=== PATIENT | female | born 1935 | race Caucasian/White ===

== ENCOUNTER 2016-09-20 11:23 | Emergency (ER) | payer OTHER ==
[~2016-09-20] VITALS: Ht 157.5 cm; Wt 88.0 kg
[~2016-09-20 11:23] MED LIST: AGG PO; ALEN70TA4 PO; CALC200T PO; CHOL2000 PO; DOCU-94 PO; ESCI10TA17 PO; INDSR/60 PO; INSDGIPEN SC; IPRASOL4 INH; ISOS120T5 PO; LSX80 PO; MCLIN; NF656 TOP; NVLGI/PEN SC; OXGN; OXYC1TAB3 PO; PANT40TA PO; POLY335019 PO; RANO1000 PO; SENN-65 PO; SIMV40TA2 PO; TOPI200T14 PO; VNTHFA/IN INH; VTMD PO
[2016-09-20 11:32] VITALS: TEMP 37; Ht 157.5 cm; Wt 88.0 kg
--- NOTE | 2016-09-20 11:41 | EMERGENCY ROOM VISIT NOTE ---
History Report prepared by Aar: Omid Mckeon Under the Supervision of: Dr. Chance Blake M.D. First contact with patient: 11:29 Chief Complaint: OTHER COMPLAINT Stated Complaint: NUMBNESS History of Present Illness The patient is a 81 year old female who presents to the Emergency Room with complaints of global numbness that began MOLDER FOAM RUBBER. The patient rates her current symptom severity a 10/10. The patient has been experiencing some diarrhea and itchiness for the past couple of days. However, the numbness was a new occurrence. She was given Benadryl which helped alleviate her itching mildly. She denies any other symptoms. She has no complaints at the moment. Source of History: patient Onset: MOLDER FOAM RUBBER Position: other (global) Symptom Intensity: 10/10 Quality: numbness Timing: constant Associated Symptoms: + diarrhea Note: The patient has some pruritus. She denies any other abnormal symptoms. Review of Systems See HPI for pertinent positives & negatives. A total of 10 systems reviewed and were otherwise negative. 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 (9) CEREBRAL THROMBOSIS W CEREBRAL INFARCTION (10) CEREBROVASC DISEASE NOS (11) Chest pain (12) CHRONIC KIDNEY DISEASE, STAGE V (13) Chronic pain (14) CVA (cerebral infarction) (15) CYSTIC KIDNEY DISEASE, UNSPECIFIED (16) Depression (17) Depression (18) Diabetes (19) Discharge planning issues (20) Elevated troponin (21) ESOPHAGEAL REFLUX (22) Fracture of thoracic spine (23) Heart disease (24) HTN (hypertension) (25) Hyperlipidemia (26) HYPERPARATHYROIDISM, UNSPECIFIED (27) Intentional self-harm (28) Leg weakness, bilateral (29) Leukocytosis (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 (31) Osteoarthritis (32) PANCREATIC DISEASE NEC (33) Past Psychotropic Medications (34) PERIPH VASCULAR DIS NOS (35) Precordial chest pain (36) R sided numbness (37) Rheumatoid arthritis (38) Right sided weakness (39) Suicide attempt by acetaminophen overdose (40) Thoracic spine fracture (41) TIA (transient ischemic attack) (42) UTI (urinary tract infection) (43) VASCULAR DEMENTIA, UNCOMPLICATED (44) VERTIGO (45) VITAMIN D DEFICIENCY NOS (46) Wrist fracture Surgical Problems: (1) Hx of coronary artery bypass surgery Family History Heart disease Myocardial infarction Social History Smoking Status: Former Smoker Alcohol Use: none Drug Use: none Marital Status: single Housing Status: lives alone Occupation Status: retired Current/Historical Medications Scheduled Alendronate Sodium (Fosamax), 70 MG PO WK Artificial Tear Solution (Artificial Tears), 1 DROPS OPB QID Calcitonin [place] (Calcitonin-[place]), 1 SPRAY NA DAILY Calcium Carbonate-Vitamin D (Oscal 500/200 D-3), 1 TAB PO AMPM Diphenhydramine Hcl (Benadryl Allergy), 50 MG PO QPM Dipyridamole/Aspirin (Aggrenox 25-200 mg), 1 TAB PO DAILY Docusate Sodium (Colace), 1 CAP PO BID Ergocalciferol (Vitamin D), 1 CAP PO WK Escitalopram (Lexapro), 10 MG PO DAILY Furosemide (Lasix), 60 MG PO BID Insulin Aspart (Novolog Flexpen), SC TIDM Insulin Glargine (Lantus Solostar), 45 UNIT SC PM Ipratropium-Albuterol (Duoneb), 1 TREATMENT INH QID Isosorbide Mononitrate Ext Rel (Imdur Ext Rel), 120 MG PO QAM Lidocaine (Lidoderm Patch 5%), 1 PATCH TOP QAM Nitroglycerin (Nitrostat), 0.4 MG UT PRN Nystatin (Topical) (Nystatin), 1 APPLN TOP BID Oseltamivir Phosphate (Tamiflu), 1 CAP PO Q2D Oxycodone/Acetaminophen 5MG/325MG (Percocet 5MG/325MG), 1 TABLET PO Q6H Pantoprazole (Protonix), 40 MG PO DAILY Polyethylene Glycol 3350 (Miralax), 17 GM PO DAILY Propranolol Hcl (Propranolol ER), 60 MG PO QAM Ranolazine (Ranexa), 1,000 MG PO Q12 Senna/Docusate Sod (Senokot S), 1 TAB PO DAILY Simvastatin (Zocor), 40 MG PO HS Topiramate (Topamax), 200 MG PO BID Scheduled PRN Albuterol Hfa (Ventolin Hfa), 1-2 PUFFS INH Q4 PRN for Shortness of Breath Allergies Coded Allergies: Iodinated Diagnostic Agents (Verified Allergy, Severe, ANAPHYLAXIS, ) [place] (Verified Allergy, Severe, RASH, HIVES, TROUBLE BREATHING, ) Promethazine (Verified Allergy, Severe, HIVES, TROUBLE BREATHING, 09/07/16 ) Bupropion (Verified Allergy, Intermediate, RASH, 09/07/16) Diazepam (Verified Allergy, Intermediate, Rash, 09/07/16) Reported by PT. Erythromycin (Verified Allergy, Intermediate, RASH, 09/07/16) Iodine (Verified Allergy, Intermediate, RASH, HIVES, 09/07/16) Penicillins (Unverified Allergy, Intermediate, RASH, 09/07/16) Phenytoin (Verified Allergy, Unknown, PT UNSURE, 09/07/16) Tamsulosin (Verified Adverse Reaction, Intermediate, DIZZINESS, 09/07/16) Physical Exam Vital Signs Date Time Temp Pulse Resp B/P Pulse Ox O2 Delivery O2 Flow Rate FiO2 09/20/16 14:58 104/89 09/20/16 14:32 72 18 104/53 92 Room Air 09/20/16 13:14 79 20 123/48 98 Room Air 09/20/16 11:47 74 20 134/53 97 Room Air 81 120/50 79 94/43 09/20/16 11:32 37.0 84 18 116/60 96 Room Air 09/20/16 11:30 37.0 84 18 116/60 96 Room Air Physical Exam CONSTITUTIONAL: No acute distress HEENT: No icterus, moist mucous membranes NECK: No meningismus, trachea is midline. CARDIOVASCULAR: Regular rate, normal perfusion RESPIRATORY: Unlabored breathing. Clear to auscultation. GASTROINTESTINAL: Non-tender GENITOURINARY: No flank tenderness MUSCULOSKELETAL: Full range of motion NEUROLOGIC: No acute gross focal deficits. Chronic right eye abnormalities without acute change per patient. Symmetrically weak. PSYCHIATRIC: Normal affect SKIN: Normal for ethnicity. Medical Decision & Procedures ER Provider Diagnostic Interpretation: Radiology results are stated below per my review and radiologist interpretation. CHEST ONE VIEW PORTABLE CLINICAL HISTORY: Weakness. COMPARISON STUDY: Chest radiograph September 08, 2016. FINDINGS: Lung volumes are normal. There is no evidence of pulmonary edema. Blunting of left costophrenic angle is unchanged. Mild cardiomegaly is similar to prior study. There is no evidence of pulmonary edema. There are few healed bilateral rib fractures. IMPRESSION: No acute cardiopulmonary findings. No change in appearance of the chest. Electronically signed by: Cuate Denise M.D. 09/20/2016 12:09 PM Dictated Date/Time: 09/20/2016 12:[address] OF THE HEAD WITHOUT CONTRAST CLINICAL HISTORY: Numbness. Weakness. Evaluate for stroke. COMPARISON STUDY: Head CT September 08, 2016. CT DOSE: 537.48 mGy.cm TECHNIQUE: Helical axial images of the head were obtained without IV contrast. Automated exposure control was utilized for the study. FINDINGS: No acute intracranial hemorrhage, midline shift or mass effect is present. Ventricular system is stable. The basilar cisterns are patent. There are no extra-axial collections. Harris-white differentiation is maintained. White matter hypodensity suggests small vessel disease. There are no findings to suggest acute dural sinus thrombosis or acute territorial infarct. This extensive intracranial vascular calcification. There is no calvarial fracture. Visualized portions of the sinuses and mastoid air cells are clear. IMPRESSION: No acute intracranial findings. Electronically signed by: Cuate Denise M.D. 09/20/2016 12:23 PM Dictated Date/Time: 09/20/2016 12:20 PM Laboratory Results Test 09/20/16 11:41 09/20/16 12:30 Bedside Hemoglobin 9.5 g/dl (12.0-16.0) Bedside Hematocrit 28 % (37-47) Bedside Sodium 139 mEq/L (135-144) Bedside Potassium 3.4 mEq/L (3.3-5.0) Bedside Chloride 97 mEq/L (101-112) Bedside Total CO2 25 mEq/l (24-31) Anion Gap 21.0 mmol/L (16-25) Bedside Blood Urea Nitrogen 24 mg/dl (7-18) Bedside Creatinine 1.8 mg/dl (0.6-1.3) Bedside Glucose (other) 110 mg/dl (70-99) Bedside Ionized Calcium ([place]) 1.22 mmol/l (1.12-1.32) Urine Color YELLOW Urine Appearance CLEAR (CLEAR) Urine pH 8.0 (4.5-7.5) Urine Specific [place] 1.000 (1.000-1.030) Urine Protein NEG (NEG) Urine Glucose (UA) NEG (NEG) Urine Ketones NEG (NEG) Urine Occult Blood NEG (NEG) Urine Nitrite NEG (NEG) Urine Bilirubin NEG (NEG) Urine Urobilinogen NEG (NEG) Urine Leukocyte Esterase NEG (NEG) Labs reviewed by ED physician. Medications Administered Medications (Trade) Dose Ordered Sig/Phil Route Start Time Stop Time Status Last Admin Dose Admin Oxycodone/ Acetaminophen (Percocet 5-325MG Tab) 1 tab NOW STAT PO 09/20/16 13:53 09/20/16 13:55 DC 09/20/16 14:01 1 TAB ED Course 1129: Past medical records reviewed. The patient was evaluated in room C3. A complete history and physical examination was performed. 1353: Oxycodone/Acetaminophen 1 tab PO 1430: Upon reexamination the patient is resting. I discussed results and treatment plan with the patient. She verbalizes agreement and understanding. The patient is ready for discharge. Medical Decision Differential diagnoses include but are not limited to; chronic diseases, debilitation, stroke, allergic reaction, and UTI. 81-year-old in generally poor health was transferred from [facility] (treated for back pain) for evaluation of diffuse bodily pruritus as well as numbness. I received the medic call on this patient which was consistent with patient's report to me of generalized concerns without focality either of the pruritus or of the numbness. Patient is noted to have atypical cranial nerve deficits but which appear to be consistent with baseline and she is symmetrically weak without focal gross deficits identified. Labs did not reveal acute abnormalities and imaging was negative. Patient received Benadryl in route to the emergency room and her pruritus resolved while she was here. She continued to complain of mild diffuse numbness of her entire body but this also appears to be consistent with frequent episodes which she has at times. She did request something for her back pain and was provided Percocet consistent with her medications at [facility]. She appeared in no distress at the time of discharge. Impression Primary Impression: Weakness Scribe Attestation The scribe's documentation has been prepared under my direction and personally reviewed by me in its entirety. I confirm that the note above accurately reflects all work, treatment, procedures, and medical decision making performed by me. Departure Information Dispostion Home / Self-Care Referrals Mckinley Contreras M.D. (PCP) Forms HOME CARE DOCUMENTATION FORM, IMPORTANT VISIT INFORMATION, WORK / SCHOOL INSTRUCTIONS Patient Instructions A Signature Page, My [facility]
[2016-09-20 11:52] LABS: ISTAT CREATININE 1.8 mg/dl (0.6-1.3); ISTAT HEMOGLOBIN 9.5 g/dl (12.0-16.0); ISTAT IONIZED CALCIUM 1.22 mmol/l (1.12-1.32)
[2016-09-20] MEDS ORDERED: OSEL30CA PO (12:09)
[2016-09-20] MEDS ORDERED: RANO500T PO (12:09)
[2016-09-20] MEDS ORDERED: DIPH25CA65 PO (12:09)
[2016-09-20] MEDS ORDERED: ARTISOL12 OPB (12:09)
[2016-09-20] MEDS ORDERED: FURO-85 PO (12:09)
[2016-09-20] MEDS ORDERED: NTRGSL/4 UT (12:09)
[2016-09-20] MEDS ORDERED: NYST80OI TOP (12:09)
[2016-09-20] MEDS ORDERED: ISOS60TA25 PO (12:09)
[2016-09-20] MEDS ORDERED: OXYC-57 PO (12:09)
--- NOTE | 2016-09-20 12:11 | DIAGNOSTIC IMAGING REPORT ---
CHEST ONE VIEW PORTABLE CLINICAL HISTORY: Weakness. COMPARISON STUDY: Chest radiograph September 08, 2016. FINDINGS: Lung volumes are normal. There is no evidence of pulmonary edema. Blunting of left costophrenic angle is unchanged. Mild cardiomegaly is similar to prior study. There is no evidence of pulmonary edema. There are few healed bilateral rib fractures. IMPRESSION: No acute cardiopulmonary findings. No change in appearance of the chest. Electronically signed by: Cuate Denise M.D. 09/20/2016 12:09 PM Dictated Date/Time: 09/20/2016 12:06 PM
--- NOTE | 2016-09-20 12:25 | DIAGNOSTIC IMAGING REPORT ---
CT OF THE HEAD WITHOUT CONTRAST CLINICAL HISTORY: Numbness. Weakness. Evaluate for stroke. COMPARISON STUDY: Head CT September 08, 2016. CT DOSE: 537.48 mGy.cm TECHNIQUE: Helical axial images of the head were obtained without IV contrast. Automated exposure control was utilized for the study. FINDINGS: No acute intracranial hemorrhage, midline shift or mass effect is present. Ventricular system is stable. The basilar cisterns are patent. There are no extra-axial collections. Harris-white differentiation is maintained. White matter hypodensity suggests small vessel disease. There are no findings to suggest acute dural sinus thrombosis or acute territorial infarct. This extensive intracranial vascular calcification. There is no calvarial fracture. Visualized portions of the sinuses and mastoid air cells are clear. IMPRESSION: No acute intracranial findings. Electronically signed by: Cuate Denise M.D. 09/20/2016 12:23 PM Dictated Date/Time: 09/20/2016 12:20 PM
[2016-09-20 12:55] LABS: URINE APPEARANCE CLEAR (CLEAR); URINE BILIRUBIN NEG (NEG); URINE COLOR YELLOW; URINE NITRITE NEG (NEG); UROBILINOGEN NEG (NEG); ZZUR CULT IF INDIC CLEAN CATCH NO
[2016-09-20 13:01] LABS: MANUAL MICROSCOPIC REQUIRED? NO; REVIEW REQ? NO
[2016-09-20] MEDS ORDERED: OXYCODONE/ACETAMINOPHEN 5-325 TAB PO STA (13:53)
[2016-09-20 14:32] VITALS: PULSE 72; O2SAT 92
[2016-09-20 14:58] VITALS: BP 104/89
[2016-12-10] MEDS ORDERED: ULT50X PO (11:01)
[2016-12-10] MEDS ORDERED: cipro (11:01)
[2016-12-10] MEDS ORDERED: VTMD1000 PO (11:01)
[2016-12-10] MEDS ORDERED: CIPR1TAB11 PO (11:01)
[2016-12-10] MEDS ORDERED: INSDGIPEN SC (11:01)
[2016-12-30] MEDS ORDERED: REPA2TAB13 PO (22:28)
[2017-04-07] MEDS ORDERED: OXYC-57 PO (15:43)
[2017-04-07] MEDS ORDERED: MCRK20 PO (15:43)
[2017-04-07] MEDS ORDERED: NF656 PO (15:43)
[2017-04-19] MEDS ORDERED: DFL100 PO (15:04)
[2017-04-19] MEDS ORDERED: KFL500 PO (15:04)
[2017-04-19] MEDS ORDERED: ASPEC81 PO (15:04)
== END 2016-09-20 15:02 | disposition home or self-care (01) ==
LOC: EDBD 11:23 → C.EDC 11:26
DX: R53.1 Weakness (principal); J45.909 Unspecified asthma, uncomplicated; I48.91 Unspecified atrial fibrillation; E11.22 Type 2 diabetes mellitus with diabetic chronic kidney disease; I12.0 Hypertensive chronic kidney disease with stage 5 chronic kidney disease or end stage renal disease; N18.5 Chronic kidney disease, stage 5; E55.9 Vitamin D deficiency, unspecified; E78.5 Hyperlipidemia, unspecified; I73.9 Peripheral vascular disease, unspecified; F01.50 Vascular dementia, unspecified severity, without behavioral disturbance, psychotic disturbance, mood disturbance, and anxiety; M19.90 Unspecified osteoarthritis, unspecified site; K21.9 Gastro-esophageal reflux disease without esophagitis; F32.9 Major depressive disorder, single episode, unspecified; Z86.73 Personal history of transient ischemic attack (TIA), and cerebral infarction without residual deficits; Z87.891 Personal history of nicotine dependence; Z82.49 Family history of ischemic heart disease and other diseases of the circulatory system; Z79.02 Long term (current) use of antithrombotics/antiplatelets; Z79.82 Long term (current) use of aspirin; Z79.899 Other long term (current) drug therapy

== ENCOUNTER → 2016-11-17 | Outpatient (CLI) | payer OTHER ==
[~2016-11-17] MED LIST changes: +ACET-1256 PO; +ACET-1311 PO; +ARIP2TAB3 PO; +ARTISOL12 OPB; +ASPEC81 PO; +BISA10SU7 PR; +CHOL1000 PO; -CHOL2000 PO; +CIPR1TAB11 PO; +CITA20TA4 PO; +CLB/200 PO; +CLOP1TAB15 PO; +DFL100 PO; +DILT40TA2 PO; +DIPH25CA65 PO; +ESCI1TAB10 PO; +FRRS300 PO; +FURO-85 PO; +FURO80TA63 PO; +GLYCDRO6 OPB; +HYDR25TA5 PO; +ISOS-11 PO; +ISOS60TA25 PO; +KFL500 PO; +LDDP5 TD; -LSX80 PO; +MCRK20 PO; +MECL1TAB42 PO; +METO2.5T PO; +MOML PO; +MRP15 PO; +MYL80 PO; +NCY50 PO; +NCYSR50 PO; +NF656 PO; +NMN10 PO; +NORT25CA PO; +NTRGSL/4 UT; +NYST80OI TOP; +OSEL30CA PO; -OXGN; +OXYC-57 PO; -OXYC1TAB3 PO; +POTA20TA13 PO; +POTA20TA16 PO; +PRD10 PO; +PRED-301 PO; +PRED10TA PO; +PRLSR20 PO; +RANO500T PO; +REPA2TAB13 PO; +RXNS20 PO; +SENN-61 PO; +SENN1TAB65 PO; +SODIENE PR; +TAPE1TAB9 PO; +TRAM-10 PO; +ULT50X PO; +VITA1TAB12; +VTMD1000 PO; +ZFRI4 IV; +cipro; +lidocaine patch TD
[2016-11-17 10:52] LABS: BASO % 0.3 %; BASO ABS # 0.03 K/uL (0-0.2); COMPLETE YES; EOS % 3.8 %; HEMATOCRIT 34.4 % (37-47); IG% 0.4 %; LYMPH % 28.8 %; LYMPH ABS # 2.91 K/uL (1.2-3.4); MEAN CELL VOLUME 83.7 fL (80-100); MEAN CORPUSCULAR HGB CONC 31.1 g/dl (32-36); MEAN PLATELET VOLUME 9.1 fL (7.4-10.4); MONO % 9.9 %; NEUT % 56.8 %; PLATELET COUNT 365 K/uL (130-400); RED BLOOD COUNT 4.11 M/uL (4.2-5.4); WHITE BLOOD COUNT 10.09 K/uL (4.8-10.8)
[2016-11-17 11:09] LABS: ALT/SGPT 16 U/L (12-78); AST/SGOT 8 U/L (15-37); BLOOD UREA NITROGEN 30 mg/dl (7-18); BUN/CREATININE RATIO 15.5 (10-20); CALCIUM 9.4 mg/dl (8.5-10.1); CARBON DIOXIDE 28 mmol/L (21-32); CHLORIDE 101 mmol/L (98-107); GLUCOSE 95 mg/dl (70-99); POTASSIUM 3.4 mmol/L (3.5-5.1); SODIUM 140 mmol/L (136-145)
[2016-11-17 11:10] LABS: ALB/GLOB RATIO 0.8 (0.9-2); ALKALINE PHOSPHATASE 64 U/L (45-117)
== END | disposition home or self-care (01) ==
LOC: C.LAB1850 08:54
PROVIDERS: ATTEND Internal Medicine
DX: N18.3 Chronic kidney disease, stage 3 (moderate) (principal); D64.9 Anemia, unspecified

== ENCOUNTER 2016-12-08 18:24 | Inpatient (IN) | payer OTHER ==
[~2016-12-08] VITALS: Ht 157.5 cm; Wt 86.4 kg
[~2016-12-08 18:24] MED LIST changes: -ACET-1256 PO; -ACET-1311 PO; -ARIP2TAB3 PO; -ASPEC81 PO; -BISA10SU7 PR; -CHOL1000 PO; -CIPR1TAB11 PO; -CITA20TA4 PO; -CLB/200 PO; -CLOP1TAB15 PO; -DFL100 PO; -DILT40TA2 PO; -ESCI1TAB10 PO; -FRRS300 PO; -FURO80TA63 PO; -GLYCDRO6 OPB; -HYDR25TA5 PO; +HYDROCODONE/ACETAMOPHEN 5/325MG TAB PO PRN; -ISOS-11 PO; -ISOS120T5 PO; -KFL500 PO; -LDDP5 TD; -MCRK20 PO; -MECL1TAB42 PO; -METO2.5T PO; -MOML PO; -MRP15 PO; -MYL80 PO; +MoRPHine SULFATE 4 MG/ML 1 ML CARP\\VIAL IV PRN; -NCY50 PO; -NCYSR50 PO; -NF656 PO; -NMN10 PO; -NORT25CA PO; -POTA20TA13 PO; -POTA20TA16 PO; -PRD10 PO; -PRED-301 PO; -PRED10TA PO; -PRLSR20 PO; -RANO1000 PO; -REPA2TAB13 PO; -RXNS20 PO; -SENN-61 PO; -SENN1TAB65 PO; -SODIENE PR; -TAPE1TAB9 PO; -TRAM-10 PO; +TRAMADOL HCL 50 MG TAB PO PRN; -ULT50X PO; -VITA1TAB12; -VTMD1000 PO; -ZFRI4 IV; -cipro; -lidocaine patch TD
[2016-12-08] MEDS ORDERED: ONDANSETRON INJ 2 MG/ML 2 ML VIAL IV STA (18:27)
--- NOTE | 2016-12-08 18:52 | EMERGENCY ROOM VISIT NOTE ---
History Report prepared by Ara: Peter Santiago Under the Supervision of: Dr. Vu Marinelli D.O. First contact with patient: 18:25 Chief Complaint: FALL Stated Complaint: FALL, BACK PAIN History of Present Illness The patient is a 81 year old female who presents to the Emergency Room via EMS with complaints of severe upper back pain secondary to fall occurring today. She lost her balance while walking, and fell backwards on her back. She denies loss of consciousness or hitting her head. She describes the pain to be located near her lower neck and upper back. She received Fentanyl in route to the Emergency Room with some relief. She has a history of vertigo. The patient denies any chest pain, arm pain, hip pain, or any other complaints. She is on Coumadin. Source of History: patient, EMS Onset: today Position: back (upper) Symptom Intensity: severe Modifying Factors (Relieving): other (Fentanyl with some relief) Associated Symptoms: No LOC, No chest pain Review of Systems See HPI for pertinent positives & negatives. A total of 10 systems reviewed and were otherwise negative. 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 (9) CEREBRAL THROMBOSIS W CEREBRAL INFARCTION (10) CEREBROVASC DISEASE NOS (11) Chest pain (12) CHRONIC KIDNEY DISEASE, STAGE V (13) Chronic pain (14) CVA (cerebral infarction) (15) CYSTIC KIDNEY DISEASE, UNSPECIFIED (16) Depression (17) Depression (18) Diabetes (19) Discharge planning issues (20) Elevated troponin (21) ESOPHAGEAL REFLUX (22) Fracture of thoracic spine (23) Heart disease (24) HTN (hypertension) (25) Hyperlipidemia (26) HYPERPARATHYROIDISM, UNSPECIFIED (27) Intentional self-harm (28) Leg weakness, bilateral (29) Leukocytosis (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 (31) Osteoarthritis (32) PANCREATIC DISEASE NEC (33) Past Psychotropic Medications (34) PERIPH VASCULAR DIS NOS (35) Precordial chest pain (36) R sided numbness (37) Rheumatoid arthritis (38) Right sided weakness (39) Suicide attempt by acetaminophen overdose (40) Thoracic spine fracture (41) TIA (transient ischemic attack) (42) UTI (urinary tract infection) (43) VASCULAR DEMENTIA, UNCOMPLICATED (44) VERTIGO (45) VITAMIN D DEFICIENCY NOS (46) Wrist fracture Surgical Problems: (1) Hx of coronary artery bypass surgery Family History Heart disease Myocardial infarction Social History Smoking Status: Never Smoker Alcohol Use: none Drug Use: none Marital Status: single Housing Status: lives alone Occupation Status: retired Current/Historical Medications Scheduled Alendronate Sodium (Fosamax), 70 MG PO WK Aripiprazole (Abilify), 2 MG PO QAM Calcium Carbonate-Vitamin D (Oscal 500/200 D-3), 1 TAB PO AMPM Celecoxib (CeleBREX), 200 MG PO DAILY Citalopram Hydrobromide (Citalopram Hydrobromide), 20 MG PO DAILY Clopidogrel (Plavix), 75 MG PO DAILY Diltiazem Hcl (Cardizem), 30 MG PO TID Docusate Sodium (Colace), 1 CAP PO BID Escitalopram (Lexapro), 10 MG PO DAILY Hydrochlorothiazide (Hydrochlorothiazide), 12.5 MG PO DAILY Insulin Aspart (Novolog Flexpen), SC TIDM Insulin Glargine (Lantus Solostar), 45 UNIT SC PM Isosorbide Mononitrate Ext Rel (Imdur Ext Rel), 120 MG PO QAM Memantine (Namenda), 10 MG PO BID Nitroglycerin (Nitrostat), 0.4 MG UT PRN Omeprazole (Prilosec), 20 MG PO DAILY Pantoprazole (Protonix), 40 MG PO QPM Polyethylene Glycol 3350 (Miralax), 17 GM PO DAILY Potassium Ext Rel (Klor-Con), 20 MEQ PO BID Prednisone (Prednisone), 5 MG PO DAILY Propranolol Hcl (Propranolol ER), 60 MG PO QAM Ranolazine (Ranexa), 1,000 MG PO Q12 Senna (Senokot), 1 TAB PO DAILY Simvastatin (Zocor), 40 MG PO HS Topiramate (Topamax), 200 MG PO BID Scheduled PRN Acetaminophen (Tylenol), 1,000 MG PO Q4 PRN for Pain Albuterol Hfa (Ventolin Hfa), 1-2 PUFFS INH Q4 PRN for Shortness of Breath Calcitonin Reno (Calcitonin-Reno), 1 SPRAY NA DAILY PRN for PRN Diphenhydramine Hcl (Benadryl Allergy), 50 MG PO QPM PRN for Sleep Miscellaneous Medications Vitamin E (Vitamin E), Unknown Dose Allergies Coded Allergies: Iodinated Diagnostic Agents (Verified Allergy, Severe, ANAPHYLAXIS, ) Ceex Haci (Verified Allergy, Severe, RASH, HIVES, TROUBLE BREATHING, 12/08/16 ) Promethazine (Verified Allergy, Severe, HIVES, TROUBLE BREATHING, 12/08/16) Bupropion (Verified Allergy, Intermediate, RASH, 12/08/16) Diazepam (Verified Allergy, Intermediate, Rash, 12/08/16) Reported by PT. Erythromycin (Verified Allergy, Intermediate, RASH, 12/08/16) Iodine (Verified Allergy, Intermediate, RASH, HIVES, 12/08/16) Penicillins (Unverified Allergy, Intermediate, RASH, 12/08/16) Phenytoin (Verified Allergy, Unknown, PT UNSURE, 12/08/16) Tamsulosin (Verified Adverse Reaction, Intermediate, DIZZINESS, 12/08/16) Physical Exam Vital Signs Date Time Temp Pulse Resp B/P Pulse Ox O2 Delivery O2 Flow Rate FiO2 12/08/16 21:41 93 20 123/70 98 Room Air 12/08/16 20:46 93 12/08/16 20:00 93 20 131/60 99 Room Air 12/08/16 18:25 36.8 87 18 111/59 96 Room Air Physical Exam GENERAL: Patient is awake, alert, and very uncomfortable appearing. Immobilized with cervical collar. EYES: The conjunctivae are clear. Blind in right eye. Left eye has a mid-sized pupil which is reactive to light. EARS, NOSE, MOUTH AND THROAT: The nose is without any evidence of any deformity. Mucous membranes are moist tongue is midline NECK: The neck is nontender and supple. Cervical collar was applied prior to arrival. RESPIRATORY: Normal respiratory effort is noted there is no evidence of wheezing rhonchi or rales CARDIOVASCULAR: Regular rate and rhythm. Systolic murmur appreciated. GASTROINTESTINAL: The abdomen is soft. Bowel sounds are present in all quadrants. Abdomen is nontender BACK: Diffuse thoracic and lumbar spine tenderness to palpation. MUSCULOSKELETAL/EXTREMITIES: There is no evidence of gross deformity full range of motion is noted in the hips and shoulders SKIN: There is no obvious evidence of any rash. There are no petechiae, pallor or cyanosis noted. Pedal edema bilaterally. NEUROLOGIC: Patient is awake alert and oriented x3 strength is symmetric Medical Decision & Procedures ER Provider Diagnostic Interpretation: X-ray results as stated below per interpretation by me and the radiologist. CHEST ONE VIEW PORTABLE CLINICAL HISTORY: fall trauma. Pain. COMPARISON STUDY: 09/20/2016 FINDINGS: The bones soft tissues and hemidiaphragms are normal. The cardiomediastinal silhouette is normal. The lungs are clear. The pulmonary vasculature is normal. IMPRESSION: Negative chest. Electronically signed by: Ashwin Handy M.D. 12/08/2016 9:14 PM Dictated Date/Time: 12/08/2016 9:[address] results as stated below per my review and radiologist interpretation. CERVICAL SPINE CT CT DOSE: HISTORY: Trauma fall TECHNIQUE: Multiaxial CT images of the cervical spine were performed and reformatted in the sagittal and coronal plane without the use of contrast. COMPARISON: 09/08/2016 FINDINGS: No change in the prior exam. Old compression deformity C7 unchanged. No acute or interval compression deformity. Moderate degenerative disc change. Moderate degenerative changes C1-C2 complex. IMPRESSION: Considerable degenerative change. Old compression deformity C7 unchanged. No new or interval process. Electronically signed by: Ashwin Handy M.D. 12/08/2016 7:44 PM Dictated Date/Time: 12/08/2016 7:[address]AST CT DOSE: HISTORY: Trauma fall TECHNIQUE: Multiaxial CT images of the head were performed without the use of intravenous contrast. Comparison: 09/20/2016 Findings: The paranasal sinuses and mastoid air cells are clear. The calvarium and skull base are intact. The ventricles and sulci are within normal limits. There is no mass, hematoma, midline shift, or acute infarct. Impression: No acute intracranial abnormality. Electronically signed by: Ashwin Handy M.D. 12/08/2016 7:41 PM Dictated Date/Time: 12/08/2016 7:[address] DOSE: 3560.79 mGy.cm HISTORY: Trauma. Pain. fall TECHNIQUE: Multiaxial CT images of the lumbar spine were performed and reformatted in the sagittal and coronal plane without the use of contrast. COMPARISON: 01/23/2016 FINDINGS: T12 compression fractures slightly progressive compared to the prior study. Interval development of a mild compression deformity of L1. No significant compromise of the spinal canal. Has minimal loss of vertebral body height of approximately 25-30%. Pre-existing slight concave deformity inferior endplate of L2 and L3. Grade 1 anterolisthesis of L4 and L5 unchanged in the prior study. IMPRESSION: 1. Slight progression of pre-existing compression deformities of T12 with subtle progressive compression deformities of L1. 2. No significant compromise of the spinal canal. 3. Unchanging grade 1 anterolisthesis of L4 and L5. 4. Generalized degenerative change and osteopenia unaltered from the prior study. Electronically signed by: Ashwin Handy M.D. 12/08/2016 7:54 PM Dictated Date/Time: 12/08/2016 7:[address] DOSE: HISTORY: Trauma. Pain. fall TECHNIQUE: Multiaxial CT images of the thoracic spine were performed and reformatted in the sagittal and coronal plane without the use of contrast. COMPARISON: 09/08/2016 FINDINGS: Considerable degenerative change throughout the entire thoracic region. Multiple mild to moderate compression deformities of bulk of which appear to be old. There is perhaps a subtle increase in compression deformity of T12 T6 and T9. Apparent acute cortical fracture left transverse process T8. No significant compromise of the thoracic spinal canal. IMPRESSION: 1. Multiple compression deformities combined with degenerative change of the bulk of which appears to be unchanged and/or chronic. 2. Subtle increase in compression of T6, T9, and T12. 3. No compromise of the thoracic spinal canal. 4. Nondisplaced cortical fracture left transverse process T8 Electronically signed by: Ashwin Handy M.D. 12/08/2016 7:50 PM Dictated Date/Time: 12/08/2016 7:44 PM Laboratory Results Test 12/08/16 19:55 Prothrombin Time 11.8 SECONDS (9.0-12.0) Prothromb Time International Ratio 1.1 (0.9-1.1) Activated Partial Thromboplast Time 23.3 SECONDS (21.0-31.0) Partial Thromboplastin Ratio 0.9 Total Bilirubin 0.3 mg/dl (0.2-1) Direct Bilirubin < 0.1 mg/dl (0-0.2) Aspartate Amino Transf (AST/SGOT) 12 U/L (15-37) Alanine Aminotransferase (ALT/SGPT) 13 U/L (12-78) Alkaline Phosphatase 59 U/L (45-117) Total Creatine Kinase 63 U/L (26-192) Creatine Kinase MB < 0.5 ng/ml (0.5-3.6) Creatine Kinase MB Ratio (0-3.0) Troponin I < 0.015 ng/ml (0-0.045) Total Protein 7.4 gm/dl (6.4-8.2) Albumin 3.3 gm/dl (3.4-5.0) Lipase 100 U/L (73-393) Laboratory results per my review. Medications Administered Medications (Trade) Dose Ordered Sig/Phil Route Start Time Stop Time Status Last Admin Dose Admin Fentanyl Citrate (Fentanyl Inj) 50 mcg Q20M PRN IV 12/08/16 18:30 12/09/16 01:04 DC 12/08/16 22:34 50 MCG Ondansetron HCl (Zofran Inj) 4 mg NOW STAT IV 12/08/16 18:27 12/08/16 18:30 DC 12/08/16 19:03 4 MG Morphine Sulfate (MoRPHine SULFATE INJ) 2 mg Q2H PRN IV 12/08/16 03:30 12/22/16 03:29 12/09/16 01:05 2 MG Tramadol HCl (Ultram Tab) 50 mg Q4H PRN PO 12/08/16 03:30 01/07/17 03:29 12/09/16 10:40 50 MG Tramadol HCl (Ultram Tab) 100 mg Q4H PRN PO 12/08/16 03:30 01/07/17 03:29 12/09/16 03:28 100 MG ECG Indication: back/shoulder pain Rate (beats per minute): 84 Rhythm: normal sinus Findings: no ectopy, other (No acute ST segment abnormality) Comparison ECG Date: September 07, 2016 Change: no significant change ED Course 1825: The patient was evaluated in room C02B. A complete history and physical examination were performed. 1826: Zofran Inj 4 mg IV 1829: Fentanyl Inj 50 mcg IV 2151: Upon reevaluation, the patient is resting comfortably. I discussed results and treatment plan with her. She verbalizes agreement and understanding. I spoke with Dr. Lainez of the [facility] Hospitalist Service. The patient will be evaluated for further management and care. Medical Decision Prior records/ancillary studies reviewed. Triage Nursing notes reviewed. The patient's history was concerning for traumatic injury Differential diagnosis: Etiologies such as fracture, dislocation, intra-abdominal, pneumothorax, intrathoracic , intracranial, neurologic, as well as other traumatic pathologies were entertained. The patient is an 81-year-old female who presented to the emergency department for an evaluation after a fall. The patient has a history of vertigo. She fell backwards striking her back. She suffered multiple new compression fractures in her thoracic and lumbar spine. She also had previous compression fractures in those areas as well. She also has a transverse process fracture. She was treated with pain medication by the prehospital personnel after they called me for medical command. She was also given IV pain medication in the emergency department. She was comfortable when she was lying still but as soon she try to move she had very severe pain. I discussed the patient's laboratory and radiographic studies with her and her daughter. We attempted to have the patient placed at [facility] utilizing the emergency department casework specialist. We were unable to succeed with this placement so I discussed his case with the on-call [facility] hospitalist group. They have agreed to evaluate the patient in the emergency department for further management and disposition. Consults Time Called: 2135 Consulting Physician: Dr. Lainez of the [facility] Hospitalist Service Returned Call: [phone] Lainez of the [facility] Hospitalist Service. Impression Primary Impression: Fall Additional Impressions: Multiple fractures of thoracic spine Lumbar compression fracture Fracture of thoracic transverse process Intractable back pain Scribe Attestation The scribe's documentation has been prepared under my direction and personally reviewed by me in its entirety. I confirm that the note above accurately reflects all work, treatment, procedures, and medical decision making performed by me. Departure Information Dispostion Being Evaluated By Hospitalist Referrals Mckinley Contreras M.D. (PCP) Patient Instructions My [facility] Problem Qualifiers Primary Impression: Fall Encounter type: initial encounter Qualified Codes: W19.XXXA - Unspecified fall, initial encounter Additional Impressions: Multiple fractures of thoracic spine Encounter type: initial encounter Fracture type: closed Qualified Codes: S22.009A - Unspecified fracture of unspecified thoracic vertebra, initial encounter for closed fracture Lumbar compression fracture Encounter type: initial encounter Fracture type: closed Qualified Codes: S32.000A - Wedge compression fracture of unspecified lumbar vertebra, initial encounter for closed fracture Fracture of thoracic transverse process Encounter type: initial encounter Fracture type: closed Qualified Codes: S22.009A - Unspecified fracture of unspecified thoracic vertebra, initial encounter for closed fracture
[2016-12-08] MEDS: FENTANYL CITRATE INJ 50 MCG/1 ML 2 ML VIAL IV PRN ×2 (19:03→22:34)
--- NOTE | 2016-12-08 19:43 | DIAGNOSTIC IMAGING REPORT ---
HEAD CT NONCONTRAST CT DOSE: HISTORY: Trauma fall TECHNIQUE: Multiaxial CT images of the head were performed without the use of intravenous contrast. Comparison: 09/20/2016 Findings: The paranasal sinuses and mastoid air cells are clear. The calvarium and skull base are intact. The ventricles and sulci are within normal limits. There is no mass, hematoma, midline shift, or acute infarct. Impression: No acute intracranial abnormality. Electronically signed by: Ashwin Handy M.D. 12/08/2016 7:41 PM Dictated Date/Time: 12/08/2016 7:40 PM
--- NOTE | 2016-12-08 19:45 | DIAGNOSTIC IMAGING REPORT ---
CERVICAL SPINE CT CT DOSE: HISTORY: Trauma fall TECHNIQUE: Multiaxial CT images of the cervical spine were performed and reformatted in the sagittal and coronal plane without the use of contrast. COMPARISON: 09/08/2016 FINDINGS: No change in the prior exam. Old compression deformity C7 unchanged. No acute or interval compression deformity. Moderate degenerative disc change. Moderate degenerative changes C1-C2 complex. IMPRESSION: Considerable degenerative change. Old compression deformity C7 unchanged. No new or interval process. Electronically signed by: Ashwin Handy M.D. 12/08/2016 7:44 PM Dictated Date/Time: 12/08/2016 7:42 PM
--- NOTE | 2016-12-08 19:51 | DIAGNOSTIC IMAGING REPORT ---
THORACIC SPINE CT CT DOSE: HISTORY: Trauma. Pain. fall TECHNIQUE: Multiaxial CT images of the thoracic spine were performed and reformatted in the sagittal and coronal plane without the use of contrast. COMPARISON: 09/08/2016 FINDINGS: Considerable degenerative change throughout the entire thoracic region. Multiple mild to moderate compression deformities of bulk of which appear to be old. There is perhaps a subtle increase in compression deformity of T12 T6 and T9. Apparent acute cortical fracture left transverse process T8. No significant compromise of the thoracic spinal canal. IMPRESSION: 1. Multiple compression deformities combined with degenerative change of the bulk of which appears to be unchanged and/or chronic. 2. Subtle increase in compression of T6, T9, and T12. 3. No compromise of the thoracic spinal canal. 4. Nondisplaced cortical fracture left transverse process T8 Electronically signed by: Ashwin Handy M.D. 12/08/2016 7:50 PM Dictated Date/Time: 12/08/2016 7:44 PM
--- NOTE | 2016-12-08 19:55 | DIAGNOSTIC IMAGING REPORT ---
LUMBAR SPINE CT CT DOSE: 3560.79 mGy.cm HISTORY: Trauma. Pain. fall TECHNIQUE: Multiaxial CT images of the lumbar spine were performed and reformatted in the sagittal and coronal plane without the use of contrast. COMPARISON: 01/23/2016 FINDINGS: T12 compression fractures slightly progressive compared to the prior study. Interval development of a mild compression deformity of L1. No significant compromise of the spinal canal. Has minimal loss of vertebral body height of approximately 25-30%. Pre-existing slight concave deformity inferior endplate of L2 and L3. Grade 1 anterolisthesis of L4 and L5 unchanged in the prior study. IMPRESSION: 1. Slight progression of pre-existing compression deformities of T12 with subtle progressive compression deformities of L1. 2. No significant compromise of the spinal canal. 3. Unchanging grade 1 anterolisthesis of L4 and L5. 4. Generalized degenerative change and osteopenia unaltered from the prior study. Electronically signed by: Ashwin Handy M.D. 12/08/2016 7:54 PM Dictated Date/Time: 12/08/2016 7:50 PM
[2016-12-08 20:12] LABS: BASO % 0.2 %; BASO ABS # 0.02 K/uL (0-0.2); COMPLETE YES; IG% 0.3 %; LYMPH % 27.4 %; LYMPH ABS # 2.56 K/uL (1.2-3.4); MEAN CORPUSCULAR HEMOGLOBIN 26.1 pg (25-34); MEAN CORPUSCULAR HGB CONC 32.2 g/dl (32-36); MEAN PLATELET VOLUME 8.7 fL (7.4-10.4); MONO % 10.3 %; NEUT % 59.8 %; PLATELET COUNT 331 K/uL (130-400); RED BLOOD COUNT 3.95 M/uL (4.2-5.4); WHITE BLOOD COUNT 9.36 K/uL (4.8-10.8)
[2016-12-08 20:31] LABS: INR 1.1 (0.9-1.1); PARTIAL THROMBOPLASTIN RATIO 0.9; PROTHROMBIN TIME (PATIENT) 11.8 SECONDS (9.0-12.0)
[2016-12-08 20:33] LABS: ALT/SGPT 13 U/L (12-78); BLOOD UREA NITROGEN 29 mg/dl (7-18); BUN/CREATININE RATIO 19.4 (10-20); CALCIUM 9.7 mg/dl (8.5-10.1); CARBON DIOXIDE 29 mmol/L (21-32); CHLORIDE 103 mmol/L (98-107); GLUCOSE 64 mg/dl (70-99); POTASSIUM 3.1 mmol/L (3.5-5.1); SODIUM 140 mmol/L (136-145)
[2016-12-08 20:38] LABS: ALKALINE PHOSPHATASE 59 U/L (45-117); AST/SGOT 12 U/L (15-37)
--- NOTE | 2016-12-08 21:15 | DIAGNOSTIC IMAGING REPORT ---
CHEST ONE VIEW PORTABLE CLINICAL HISTORY: fall trauma. Pain. COMPARISON STUDY: 09/20/2016 FINDINGS: The bones soft tissues and hemidiaphragms are normal. The cardiomediastinal silhouette is normal. The lungs are clear. The pulmonary vasculature is normal. IMPRESSION: Negative chest. Electronically signed by: Ashwin Handy M.D. 12/08/2016 9:14 PM Dictated Date/Time: 12/08/2016 9:13 PM
[2016-12-08] MEDS ORDERED: DILT40TA2 PO (21:53)
[2016-12-08] MEDS ORDERED: SENN-61 PO (21:53)
[2016-12-08] MEDS ORDERED: ACET-1256 PO (21:53)
[2016-12-08] MEDS ORDERED: PRLSR20 PO (21:53)
[2016-12-08] MEDS ORDERED: PRED-301 PO (21:53)
[2016-12-08] MEDS ORDERED: CLOP1TAB15 PO (21:53)
[2016-12-08] MEDS ORDERED: NMN10 PO (21:53)
[2016-12-08] MEDS ORDERED: CITA20TA4 PO (21:53)
[2016-12-08] MEDS ORDERED: CLB/200 PO (21:53)
[2016-12-08] MEDS ORDERED: ARIP2TAB3 PO (21:53)
[2016-12-08] MEDS ORDERED: POTA20TA16 PO (21:56)
[2016-12-08] MEDS ORDERED: VITA1TAB12 (21:56)
[2016-12-08] MEDS ORDERED: HYDR25TA5 PO (21:56)
--- NOTE | 2016-12-08 22:09 | History and Physical ---
History & Physical Date & Time of Service: Dec 08, 2016 at 22:09 Chief Complaint: Fall, Back Pain Primary Care Physician: Mckinley Contreras M.D. History of Present Illness Source: patient, family The patient is an 81-year-old female who presents emergency department via EMS after developing severe upper back pain following a fall that occurred earlier in the day. She reports that she lost her balance while walking with her walker , and fell backwards on her back. She did not have loss of consciousness prior , and she did not hit her head after falling. She does have a history of vertigo. She presently is on Coumadin. She reports no other injuries after falling. 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 (5) CEREBROVASC DISEASE NOS Status: Chronic (6) Chest pain Status: Resolved (7) CHRONIC KIDNEY DISEASE, STAGE V Status: Chronic (8) CVA (cerebral infarction) Status: Resolved (9) CYSTIC KIDNEY DISEASE, UNSPECIFIED Status: Chronic (10) Depression Status: Chronic (11) Diabetes Status: Chronic (12) ESOPHAGEAL REFLUX Status: Chronic (13) Heart disease Status: Chronic (14) HTN (hypertension) Status: Chronic (15) HYPERPARATHYROIDISM, UNSPECIFIED Status: Chronic (16) Osteoarthritis Status: Chronic (17) PANCREATIC DISEASE NEC Status: Chronic (18) PERIPH VASCULAR DIS NOS Status: Chronic (19) R sided numbness Status: Chronic (20) Rheumatoid arthritis Status: Chronic (21) Right sided weakness Status: Chronic (22) VASCULAR DEMENTIA, UNCOMPLICATED Status: Chronic (23) VITAMIN D DEFICIENCY NOS Status: Chronic (24) Wrist fracture Status: Resolved Surgical Problems: (1) Hx of coronary artery bypass surgery Status: Resolved Family History Heart disease Myocardial infarction Social History Smoking Status: Never Smoker Smokeless Tobacco Use: No Alcohol Use: none Drug Use: none Marital Status: single Housing status: lives with family Occupational Status: retired Immunizations History of Influenza Vaccine: No History of Tetanus Vaccine?: utd History of Pneumococcal: Yes Pneumococcal Date: Sep 24, 2010 History of Hepatitis B Vaccine: No Multi-Drug Resistant Organisms History of MDRO: No Allergies Coded Allergies: Iodinated Diagnostic Agents (Verified Allergy, Severe, ANAPHYLAXIS, ) Mamers (Verified Allergy, Severe, RASH, HIVES, TROUBLE BREATHING, 12/08/16 ) Promethazine (Verified Allergy, Severe, HIVES, TROUBLE BREATHING, 12/08/16) Bupropion (Verified Allergy, Intermediate, RASH, 12/08/16) Diazepam (Verified Allergy, Intermediate, Rash, 12/08/16) Reported by PT. Erythromycin (Verified Allergy, Intermediate, RASH, 12/08/16) Iodine (Verified Allergy, Intermediate, RASH, HIVES, 12/08/16) Penicillins (Unverified Allergy, Intermediate, RASH, 12/08/16) Phenytoin (Verified Allergy, Unknown, PT UNSURE, 12/08/16) Tamsulosin (Verified Adverse Reaction, Intermediate, DIZZINESS, 12/08/16) Home Medications Scheduled Alendronate Sodium (Fosamax), 70 MG PO WK Aripiprazole (Abilify), 2 MG PO QAM Calcium Carbonate-Vitamin D (Oscal 500/200 D-3), 1 TAB PO AMPM Celecoxib (CeleBREX), 200 MG PO DAILY Citalopram Hydrobromide (Citalopram Hydrobromide), 20 MG PO DAILY Clopidogrel (Plavix), 75 MG PO DAILY Diltiazem Hcl (Cardizem), 30 MG PO TID Docusate Sodium (Colace), 1 CAP PO BID Escitalopram (Lexapro), 10 MG PO DAILY Hydrochlorothiazide (Hydrochlorothiazide), 12.5 MG PO DAILY Insulin Aspart (Novolog Flexpen), SC TIDM Insulin Glargine (Lantus Solostar), 45 UNIT SC PM Isosorbide Mononitrate Ext Rel (Imdur Ext Rel), 120 MG PO QAM Memantine (Namenda), 10 MG PO BID Nitroglycerin (Nitrostat), 0.4 MG UT PRN Omeprazole (Prilosec), 20 MG PO DAILY Pantoprazole (Protonix), 40 MG PO QPM Polyethylene Glycol 3350 (Miralax), 17 GM PO DAILY Potassium Ext Rel (Klor-Con), 20 MEQ PO BID Prednisone (Prednisone), 5 MG PO DAILY Propranolol Hcl (Propranolol ER), 60 MG PO QAM Ranolazine (Ranexa), 1,000 MG PO Q12 Senna (Senokot), 1 TAB PO DAILY Simvastatin (Zocor), 40 MG PO HS Topiramate (Topamax), 200 MG PO BID Scheduled PRN Acetaminophen (Tylenol), 1,000 MG PO Q4 PRN for Pain Albuterol Hfa (Ventolin Hfa), 1-2 PUFFS INH Q4 PRN for Shortness of Breath Calcitonin [place]ore (Calcitonin-Lakeshore), 1 SPRAY NA DAILY PRN for PRN Diphenhydramine Hcl (Benadryl Allergy), 50 MG PO QPM PRN for Sleep Miscellaneous Medications Vitamin E (Vitamin E), Unknown Dose Review of Systems The patient denies chest pain, palpitations, shortness of breath, cough, lower extremity swelling, vision change, hearing change, sore throat, fevers, chills, sweats, weight change, fatigue, nausea, vomiting, abdominal pain, pelvic pain, blood in urine or stool, dysuria, urinary frequency or urgency, lightheadedness , dizziness, headache, memory loss, rash, abnormal bruising or bleeding, focal weakness, night sweats, or allergy symptoms. The review of systems is otherwise negative other than for that already noted above, and at least 10 systems have been reviewed. Physical Exam Vital Signs Date Time Temp Pulse Resp B/P Pulse Ox O2 Delivery O2 Flow Rate FiO2 12/08/16 21:41 93 20 123/70 98 Room Air 12/08/16 20:46 93 12/08/16 20:00 93 20 131/60 99 Room Air 12/08/16 18:25 36.8 87 18 111/59 96 Room Air The patient is awake, well-developed and adequately nourished, alert and oriented 3, normocephalic and atraumatic, lying in bed and in no acute distress. HEENT--PERRL, EOMI, mucous membranes and oropharynx dry. Neck--supple, no JVD or bruits, thyroid normal, trachea midline, no adenopathy. Heart--normal S1 and S2, no extra beats, no murmurs, rubs or gallops. Lungs--clear bilaterally, no respiratory distress, no accessory muscle use. Abdomen--normal bowel sounds and soft, nontender and nondistended, no hernias or masses, no organomegaly. Extremities--no cyanosis, clubbing or edema. There are good distal pulses b/l. Dermatologic--normal skin turgor, normal color, warm and dry, no abnormal lymph nodes, no rash. Neurologic--cranial nerves II through XII grossly intact, motor and sensory examination normal. Rheumatologic--reproducible pain over most of cervical thoracic lumbar spine Psychiatric--normal affect. Diagnostics Laboratory Results Results Past 24 Hours Test 12/08/16 19:55 Range/Units White Blood Count 9.36 4.8-10.8 K/uL Red Blood Count 3.95 4.2-5.4 M/uL Hemoglobin 10.3 12.0-16.0 g/dL Hematocrit 32.0 37-47 % Mean Corpuscular Volume 81.0 80-100 fL Mean Corpuscular Hemoglobin 26.1 25-34 pg Mean Corpuscular Hemoglobin Concent 32.2 32-36 g/dl Platelet Count 331 130-400 K/uL Mean Platelet Volume 8.7 7.4-10.4 fL Neutrophils (%) (Auto) 59.8 % Lymphocytes (%) (Auto) 27.4 % Monocytes (%) (Auto) 10.3 % Eosinophils (%) (Auto) 2.0 % Basophils (%) (Auto) 0.2 % Neutrophils # (Auto) 5.60 1.4-6.5 K/uL Lymphocytes # (Auto) 2.56 1.2-3.4 K/uL Monocytes # (Auto) 0.96 0.11-0.59 K/uL Eosinophils # (Auto) 0.19 0-0.5 K/uL Basophils # (Auto) 0.02 0-0.2 K/uL RDW Standard Deviation 56.2 36.4-46.3 fL RDW Coefficient of Variation 18.8 11.5-14.5 % Immature Granulocyte % (Auto) 0.3 % Immature Granulocyte # (Auto) 0.03 0.00-0.02 K/uL Prothrombin Time 11.8 9.0-12.0 SECONDS Prothromb Time International Ratio 1.1 0.9-1.1 Activated Partial Thromboplast Time 23.3 21.0-31.0 SECONDS Partial Thromboplastin Ratio 0.9 Sodium Level 140 136-145 mmol/L Potassium Level 3.1 3.5-5.1 mmol/L Chloride Level 103 98-107 mmol/L Carbon Dioxide Level 29 21-32 mmol/L Anion Gap 8.0 3-11 mmol/L Blood Urea Nitrogen 29 7-18 mg/dl Creatinine 1.50 0.60-1.20 mg/dl Est Creatinine Clear Calc Drug Dose 30.5 ml/min Estimated GFR () 37.7 Estimated GFR (Non- 32.6 BUN/Creatinine Ratio 19.4 10-20 Random Glucose 64 70-99 mg/dl Calcium Level 9.7 8.5-10.1 mg/dl Total Bilirubin 0.3 0.2-1 mg/dl Direct Bilirubin < 0.1 0-0.2 mg/dl Aspartate Amino Transf (AST/SGOT) 12 15-37 U/L Alanine Aminotransferase (ALT/SGPT) 13 12-78 U/L Alkaline Phosphatase 59 45-117 U/L Total Creatine Kinase 63 26-192 U/L Creatine Kinase MB < 0.5 0.5-3.6 ng/ml Creatine Kinase MB Ratio 0-3.0 Troponin I < 0.015 0-0.045 ng/ml Total Protein 7.4 6.4-8.2 gm/dl Albumin 3.3 3.4-5.0 gm/dl Lipase 100 73-393 U/L Diagnostic Radiology Patient Name: Umberto HERNANDEZ Unit Number: [id number] Dictated: 12/08/161943 Transcribed: 12/08/161943 MS Printed Date/Time: [~ rep prt dt]/[~ rep prt tm] [~ rep ct labl] - [~ rep ct ivnm] [facility] Radiology Department [place] [id number] Dictated: 12/08/161943 Transcribed: 12/08/161943 MS Printed Date/Time: [~ rep prt dt]/[~ rep prt tm] [~ rep ct labl] - [~ rep ct ivnm] THORACIC SPINE CT CT DOSE: HISTORY: Trauma. Pain. fall TECHNIQUE: Multiaxial CT images of the thoracic spine were performed and reformatted in the sagittal and coronal plane without the use of contrast. COMPARISON: 09/08/2016 FINDINGS: Considerable degenerative change throughout the entire thoracic region. Multiple mild to moderate compression deformities of bulk of which appear to be old. There is perhaps a subtle increase in compression deformity of T12 T6 and T9. Apparent acute cortical fracture left transverse process T8. No significant compromise of the thoracic spinal canal. IMPRESSION: 1. Multiple compression deformities combined with degenerative change of the bulk of which appears to be unchanged and/or chronic. 2. Subtle increase in compression of T6, T9, and T12. 3. No compromise of the thoracic spinal canal. 4. Nondisplaced cortical fracture left transverse process T8 Electronically signed by: Ashwin Handy M.D. 12/08/2016 7:50 PM Dictated Date/Time: 12/08/2016 7:44 PM The status of this report is Signed. Draft = Not yet reviewed or approved by Radiologist. Signed = Reviewed and approved by Radiologist. <AttendingPhy></AttendingPhy> <FamilyPhy>Mckinley Contreras M.D.</FamilyPhy> < PrimaryPhy>Mckinley Contreras M.D.</PrimaryPhy> <UnitNumber>[id number]</UnitNumber > <VisitNumber>[id number]</VisitNumber> <PatientName>Umberto HERNANDEZ</ PatientName> <DateOfBirth>1935</DateOfBirth> <Location>[facility]</Location> < ServiceDate>12/08/16</ServiceDate> <MNE>ESINDI</MNE> <OrderingPhy>Vu Marinelli D.O.</OrderingPhy> <OrderingPhyMNE>f rep ord dr scott</OrderingPhyMNE> <DictatingPhyMNE>f rep dict dr scott</DictatingPhyMNE> <CCListMNE>f rep ct keniae</ CCListMNE> <AdmittingPhyMNE>f pt admit dr scott</AdmittingPhyMNE> <AttendingPhyMNE >f pt attend dr scott</AttendingPhyMNE> <ConsultingPhyMNE>f pt consult dr scott</ConsultingPhyMNE> <FamilyPhyMNE>f pt fam dr scott</FamilyPhyMNE> <OtherPhyMNE>f pt other dr scott</OtherPhyMNE> < PrimaryPhyMNE>f pt prim care dr scott</PrimaryPhyMNE> <ReferringPhyMNE>f pt referring dr scott</ReferringPhyMNE> Patient Name: Umberto HERNANDEZ Unit Number: [id number] Dictated: 12/08/161949 Transcribed: 12/08/161949 MS Printed Date/Time: [~ rep prt dt]/[~ rep prt tm] [~ rep ct labl] - [~ rep ct ivnm] [facility] [place] [address] Dictated: 12/08/161949 Transcribed: 12/08/161949 MS Printed Date/Time: [~ rep prt dt]/[~ rep prt tm] [~ rep ct labl] - [~ rep ct ivnm] LUMBAR SPINE CT CT DOSE: 3560.79 mGy.cm HISTORY: Trauma. Pain. fall TECHNIQUE: Multiaxial CT images of the lumbar spine were performed and reformatted in the sagittal and coronal plane without the use of contrast. COMPARISON: 01/23/2016 FINDINGS: T12 compression fractures slightly progressive compared to the prior study. Interval development of a mild compression deformity of L1. No significant compromise of the spinal canal. Has minimal loss of vertebral body height of approximately 25-30%. Pre-existing slight concave deformity inferior endplate of L2 and L3. Grade 1 anterolisthesis of L4 and L5 unchanged in the prior study. IMPRESSION: 1. Slight progression of pre-existing compression deformities of T12 with subtle progressive compression deformities of L1. 2. No significant compromise of the spinal canal. 3. Unchanging grade 1 anterolisthesis of L4 and L5. 4. Generalized degenerative change and osteopenia unaltered from the prior study. Electronically signed by: Ashwin Handy M.D. 12/08/2016 7:54 PM Dictated Date/Time: 12/08/2016 7:50 PM The status of this report is Signed. Draft = Not yet reviewed or approved by Radiologist. Signed = Reviewed and approved by Radiologist. <AttendingPhy></AttendingPhy> <FamilyPhy>Mckinley Contreras M.D.</FamilyPhy> < PrimaryPhy>Mckinley Contreras M.D.</PrimaryPhy> <UnitNumber>[id number]</UnitNumber > <VisitNumber>[id number]</VisitNumber> <PatientName>HERNANDEZUmberto DUNNE</ PatientName> <DateOfBirth>1935</DateOfBirth> <Location>[facility]</Location> < ServiceDate>12/08/16</ServiceDate> <MNE>ESINDI</MNE> <OrderingPhy>Vu Marinelli D.O.</OrderingPhy> <OrderingPhyMNE>f rep ord dr scott</OrderingPhyMNE> <DictatingPhyMNE>f rep dict dr scott</DictatingPhyMNE> <CCListMNE>f rep ct mne</ CCListMNE> <AdmittingPhyMNE>f pt admit dr scott</AdmittingPhyMNE> <AttendingPhyMNE >f pt attend dr scott</AttendingPhyMNE> <ConsultingPhyMNE>f pt consult dr scott</ConsultingPhyMNE> <FamilyPhyMNE>f pt fam dr scott</FamilyPhyMNE> <OtherPhyMNE>f pt other dr scott</OtherPhyMNE> < PrimaryPhyMNE>f pt prim care dr scott</PrimaryPhyMNE> <ReferringPhyMNE>f pt referring dr scott</ReferringPhyMNE> Patient Name: Umberto HERNANDEZ Unit Number: [id number] Dictated: 12/08/161939 Transcribed: 12/08/161939 MS Printed Date/Time: [~ rep prt dt]/[~ rep prt tm] [~ rep ct labl] - [~ rep ct ivnm] [facility] [place] [address] Dictated: 12/08/161939 Transcribed: 12/08/161939 MS Printed Date/Time: [~ rep prt dt]/[~ rep prt tm] [~ rep ct labl] - [~ rep ct ivnm] HEAD CT NONCONTRAST CT DOSE: HISTORY: Trauma fall TECHNIQUE: Multiaxial CT images of the head were performed without the use of intravenous contrast. Comparison: 09/20/2016 Findings: The paranasal sinuses and mastoid air cells are clear. The calvarium and skull base are intact. The ventricles and sulci are within normal limits. There is no mass, hematoma, midline shift, or acute infarct. Impression: No acute intracranial abnormality. Electronically signed by: Ashwin Handy M.D. 12/08/2016 7:41 PM Dictated Date/Time: 12/08/2016 7:40 PM The status of this report is Signed. Draft = Not yet reviewed or approved by Radiologist. Signed = Reviewed and approved by Radiologist. <AttendingPhy></AttendingPhy> <FamilyPhy>Mckinley Contreras M.D.</FamilyPhy> < PrimaryPhy>Mckinley Contreras M.D.</PrimaryPhy> <UnitNumber>[id number]</UnitNumber > <VisitNumber>[id number]</VisitNumber> <PatientName>Umberto HERNANDEZ</ PatientName> <DateOfBirth>1935</DateOfBirth> <Location>[facility]</Location> < ServiceDate>12/08/16</ServiceDate> <MNE>ESINDI</MNE> <OrderingPhy>Vu Marinelli D.O.</OrderingPhy> <OrderingPhyMNE>f rep ord dr scott</OrderingPhyMNE> <DictatingPhyMNE>f rep dict dr scott</DictatingPhyMNE> <CCListMNE>f rep ct mne</ CCListMNE> <AdmittingPhyMNE>f pt admit dr scott</AdmittingPhyMNE> <AttendingPhyMNE >f pt attend dr scott</AttendingPhyMNE> <ConsultingPhyMNE>f pt consult dr scott</ConsultingPhyMNE> <FamilyPhyMNE>f pt fam dr scott</FamilyPhyMNE> <OtherPhyMNE>f pt other dr scott</OtherPhyMNE> < PrimaryPhyMNE>f pt prim care dr scott</PrimaryPhyMNE> <ReferringPhyMNE>f pt referring dr scott</ReferringPhyMNE> Patient Name: Umberto HERNANDEZ Unit Number: [id number] Dictated: 12/08/162112 Transcribed: 12/08/162112 MS Printed Date/Time: [~ rep prt dt]/[~ rep prt tm] [~ rep ct labl] - [~ rep ct ivnm] [facility] [place] [address] Dictated: 12/08/162112 Transcribed: 12/08/162112 MS Printed Date/Time: [~ rep prt dt]/[~ rep prt tm] [~ rep ct labl] - [~ rep ct ivnm] CHEST ONE VIEW PORTABLE CLINICAL HISTORY: fall trauma. Pain. COMPARISON STUDY: 09/20/2016 FINDINGS: The bones soft tissues and hemidiaphragms are normal. The cardiomediastinal silhouette is normal. The lungs are clear. The pulmonary vasculature is normal. IMPRESSION: Negative chest. Electronically signed by: Ashwin Handy M.D. 12/08/2016 9:14 PM Dictated Date/Time: 12/08/2016 9:13 PM The status of this report is Signed. Draft = Not yet reviewed or approved by Radiologist. Signed = Reviewed and approved by Radiologist. <AttendingPhy></AttendingPhy> <FamilyPhy>Mckinley Contreras M.D.</FamilyPhy> < PrimaryPhy>Mckinley Contreras M.D.</PrimaryPhy> <UnitNumber>[id number]</UnitNumber > <VisitNumber>[id number]</VisitNumber> <PatientName>Umberto HERNANDEZ</ PatientName> <DateOfBirth>1935</DateOfBirth> <Location>[facility]</Location> < ServiceDate>12/08/16</ServiceDate> <MNE>ESINDI</MNE> <OrderingPhy>Vu Marinelli D.O.</OrderingPhy> <OrderingPhyMNE>f rep ord dr scott</OrderingPhyMNE> <DictatingPhyMNE>f rep dict dr scott</DictatingPhyMNE> <CCListMNE>f rep ct mne</ CCListMNE> <AdmittingPhyMNE>f pt admit dr scott</AdmittingPhyMNE> <AttendingPhyMNE >f pt attend dr scott</AttendingPhyMNE> <ConsultingPhyMNE>f pt consult dr scott</ConsultingPhyMNE> <FamilyPhyMNE>f pt fam dr scott</FamilyPhyMNE> <OtherPhyMNE>f pt other dr scott</OtherPhyMNE> < PrimaryPhyMNE>f pt prim care dr scott</PrimaryPhyMNE> <ReferringPhyMNE>f pt referring dr scott</ReferringPhyMNE> Patient Name: Umberto HERNANDEZ Unit Number: [id number] Dictated: 12/08/161941 Transcribed: 12/08/161941 MS Printed Date/Time: [~ rep prt dt]/[~ rep prt tm] [~ rep ct labl] - [~ rep ct ivnm] [facility] [place] [address] Dictated: 12/08/161941 Transcribed: 12/08/161941 MS Printed Date/Time: [~ rep prt dt]/[~ rep prt tm] [~ rep ct labl] - [~ rep ct ivnm] [~ rep ct add3]] CERVICAL SPINE CT CT DOSE: HISTORY: Trauma fall TECHNIQUE: Multiaxial CT images of the cervical spine were performed and reformatted in the sagittal and coronal plane without the use of contrast. COMPARISON: 09/08/2016 FINDINGS: No change in the prior exam. Old compression deformity C7 unchanged. No acute or interval compression deformity. Moderate degenerative disc change. Moderate degenerative changes C1-C2 complex. IMPRESSION: Considerable degenerative change. Old compression deformity C7 unchanged. No new or interval process. Electronically signed by: Ashwin Handy M.D. 12/08/2016 7:44 PM Dictated Date/Time: 12/08/2016 7:42 PM The status of this report is Signed. Draft = Not yet reviewed or approved by Radiologist. Signed = Reviewed and approved by Radiologist. <AttendingPhy></AttendingPhy> <FamilyPhy>Mckinley Contreras M.D.</FamilyPhy> < PrimaryPhy>Mckinley Contreras M.D.</PrimaryPhy> <UnitNumber>[id number]</UnitNumber > <VisitNumber>[id number]</VisitNumber> <PatientName>Umberto HERNANDEZ</ PatientName> <DateOfBirth>1935</DateOfBirth> <Location>[facility]</Location> < ServiceDate>12/08/16</ServiceDate> <MNE>ESINDI</MNE> <OrderingPhy>Vu Marinelli D.O.</OrderingPhy> <OrderingPhyMNE>f rep ord dr scott</OrderingPhyMNE> <DictatingPhyMNE>f rep dict dr scott</DictatingPhyMNE> <CCListMNE>f rep ct mne</ CCListMNE> <AdmittingPhyMNE>f pt admit dr scott</AdmittingPhyMNE> <AttendingPhyMNE >f pt attend dr scott</AttendingPhyMNE> <ConsultingPhyMNE>f pt consult dr scott</ConsultingPhyMNE> <FamilyPhyMNE>f pt fam dr scott</FamilyPhyMNE> <OtherPhyMNE>f pt other dr scott</OtherPhyMNE> < PrimaryPhyMNE>f pt prim care dr scott</PrimaryPhyMNE> <ReferringPhyMNE>f pt referring dr scott</ReferringPhyMNE> EKG EKG shows normal sinus rhythm at 84 bpm, left axis deviation, prolonged QT, no acute ST-T changes and no change compared to August 2016. Impression Assessment and Plan Status post mechanical fall/multiple old thoracic vertebral fractures/old C7 compression fracture--patient reports cervical and upper thoracic area pain, but there are no new fractures seen on CT. She will be admitted to the medical floor for PT OT assessment, and will then have arrangements made to go to [facility] for inpatient rehabilitation. Continue Celebrex 200 mg by mouth daily, and add tramadol 50 mg to 100 mg by mouth every 6 hours when necessary, hydrocodone/APAP 5/325 every 6 hours when necessary, and morphine sulfate 2-4 mg IV to 2 hours when necessary. CAD/hypertension/atrial fibrillation--continue clopidogrel 75 mg by mouth daily , diltiazem 30 mg by mouth 3 times a day, HCTZ 12.5 mg by mouth daily, Imdur extended release 120 mg by mouth every morning, potassium extended release 20 mEq by mouth twice a day, Ranexa 1000 mg by mouth every 12 hours, or prolonged ER 60 mg by mouth every morning. Next Diabetes mellitus--blood sugar was 64 on arrival. We will hold Lantus 45 units subcutaneous every evening. Place on Accu-Cheks before meals and at bedtime with NovoLog coverage. Hypercholesterolemia--continue simvastatin 40 mg by mouth at bedtime. GERD--continue pantoprazole 40 mg by mouth every afternoon. Peripheral neuropathy--continue topiramate 200 mg by mouth twice a day. Depression/dementia--continue Abilify 2 mg by mouth every morning, citalopram 20 mg by mouth daily, Lexapro 10 mg by mouth daily, topiramate 200 mg by mouth twice a day, and Namenda 10 mg by mouth twice a day. Chronic prednisone--continue 5 mg by mouth daily. She does not need stress dose at this time. Level of Care Med/Surg Advanced Directives Existing Advance Directive: No Existing Living Will: No Existing Power of Transportation Logistics Internship: No Resuscitation Status FULL RESUSCITATION VTE Prophylaxis Given or contraindicated: SCD's
[2016-12-08] MEDS ORDERED: ZOLPIDEM TARTRATE 5 MG TAB PO PRN (23:15)
[2016-12-08] MEDS ORDERED: CALCITONIN SALMON NA 200 IU/AC 3.7 ML BTL PRN (23:15)
[2016-12-08] MEDS ORDERED: ACETAMINOPHEN 325 MG TAB PO PRN (23:15)
[2016-12-08] MEDS ORDERED: NITROGLYCERIN 0.4 MG SL PER TAB CHARGE UT SCH (23:15)
[2016-12-08] MEDS ORDERED: ALBUTEROL HFA 8 GM INHALER INH PRN (23:15)
[2016-12-08] MEDS ORDERED: ONDANSETRON INJ 2 MG/ML 2 ML VIAL IV PRN (23:30)
[2016-12-09 00:37] VITALS: BP 166/75; PULSE 100; TEMP 37.3; O2SAT 93
[2016-12-09 00:50] VITALS: Ht 157.5 cm; Wt 86.4 kg
[2016-12-09] MEDS: MoRPHine SULFATE 2 MG/ML CARP IV PRN (01:05)
[2016-12-09] MEDS: D5W AND 1/2NSS + 20MEQ KCL 1,000 ML IV SCH ×2 (01:29→10:39)
[2016-12-09 01:35] VITALS: BP 146/76
[2016-12-09 02:05] LABS: URINE APPEARANCE CLOUDY (CLEAR); URINE BILIRUBIN NEG (NEG); URINE COLOR YELLOW; URINE NITRITE NEG (NEG); URINE SPECIFIC GRAVITY 1.013 (1.000-1.030); UROBILINOGEN NEG (NEG)
[2016-12-09 02:09] LABS: MANUAL MICROSCOPIC REQUIRED? NO; REVIEW REQ? NO
[2016-12-09 07:24] VITALS: BP 122/73; PULSE 78; TEMP 37; O2SAT 96
[2016-12-09 08:00] LABS: HEMATOCRIT 31.2 % (37-47); MEAN CELL VOLUME 81.5 fL (80-100); MEAN CORPUSCULAR HEMOGLOBIN 26.1 pg (25-34); MEAN CORPUSCULAR HGB CONC 32.1 g/dl (32-36); MEAN PLATELET VOLUME 8.4 fL (7.4-10.4); PLATELET COUNT 280 K/uL (130-400); RED BLOOD COUNT 3.83 M/uL (4.2-5.4); WHITE BLOOD COUNT 8.78 K/uL (4.8-10.8)
[2016-12-09 08:33] LABS: BASO % 0.2 %; BASO ABS # 0.02 K/uL (0-0.2); BUN/CREATININE RATIO 16.9 (10-20); CALCIUM 9.7 mg/dl (8.5-10.1); COMPLETE YES; CREATININE 1.4 mg/dl (0.60-1.20); EOS % 3.5 %; HYPERSEGMENTED POLYS 1+; IG% 0.3 %; LYMPH % 27.3 %; MAGNESIUM 2.6 mg/dl (1.8-2.4); MONO % 11.4 %; NEUT % 57.3 %; POTASSIUM 3.1 mmol/L (3.5-5.1)
[2016-12-09] MEDS: RANOLAZINE 500 MG ER TAB PO SCH ×2 (08:58→21:26)
[2016-12-09] MEDS: SENNA 8.6 MG TAB PO SCH (08:58)
[2016-12-09] MEDS: CeleBREX 200 MG CAP PO SCH (08:59)
[2016-12-09] MEDS: DOCUSATE SODIUM 100 MG CAP PO SCH ×2 (08:59→21:29)
[2016-12-09] MEDS ORDERED: CITALOPRAM 20 MG TAB PO SCH (09:00)
[2016-12-09] MEDS: CALCIUM 600MG + VIT D 400 IU TAB PO SCH ×2 (09:00→21:30)
[2016-12-09] MEDS: PROPRANOLOL HCL 60 MG LA CAP PO SCH (09:00)
[2016-12-09] MEDS ORDERED: PANTOprazole SOD 40 MG TAB PO SCH (09:00)
[2016-12-09] MEDS: DILTIAZEM HCL 30 MG TAB PO SCH ×3 (09:00→21:29)
[2016-12-09] MEDS: TOPIRAMATE 100 MG TAB PO SCH ×2 (09:00→21:28)
[2016-12-09] MEDS: CLOPIDOGREL BISULFATE 75 MG TAB PO SCH (09:00)
[2016-12-09] MEDS: HYDROCHLOROTHIAZIDE 25 MG TAB PO SCH (09:01)
[2016-12-09] MEDS: ESCITALOPRAM OXALATE 10 MG TAB PO SCH (09:02)
[2016-12-09] MEDS: ISOSORBIDE MONONITRATE 60 MG TABCR PO SCH (09:02)
[2016-12-09] MEDS: MEMANTINE 10 MG TAB PO SCH ×2 (09:04→21:31)
[2016-12-09] MEDS: PANTOprazole SOD 40 MG TAB PO SCH ×2 (09:05→21:26)
[2016-12-09] MEDS: ARIPIprazole 1 MG/ML ORAL SOLN 150 ML BTL PO SCH (09:05)
[2016-12-09] MEDS: POLYETHYLENE (MIRALAX) 17 GM PACK PO SCH (09:06)
[2016-12-09] MEDS: POTASSIUM CHLORIDE 20 MEQ TABCR PO SCH ×2 (09:06→21:27)
[2016-12-09] MEDS: TRAMADOL HCL 50 MG TAB PO PRN (10:40)
[2016-12-09] MEDS ORDERED: NURSING VERBAL MED ORDER ONE (11:30)
[2016-12-09] MEDS ORDERED: POTASSIUM CHLORIDE 10 MEQ TABCR PO ONE (11:30)
--- NOTE | 2016-12-09 12:14 | Progress Note ---
Subjective Date of Service: Dec 09, 2016. Subjective Pt evaluation today including: conversation w/ patient, physical exam, chart review, lab review, review of studies, review of inpatient medication list Sitting up in chair, doing okay, pain fairly controlled, deny fever and chill Problem List Medical Problems: (1) Back pain Status: Acute (2) Back pain Status: Acute (3) Blind right eye Status: Chronic (4) Bruising Status: Acute (5) CHF (congestive heart failure) Status: Acute (6) Compression fracture Status: Acute (7) Contusion of right shoulder Status: Acute (8) Depression Status: Chronic (9) Depression Status: Acute (10) Elevated serum creatinine Status: Acute (11) Fall Status: Acute (12) Fall Status: Acute (13) Fall Status: Acute (14) Fecal retention Status: Acute (15) Fracture of thoracic transverse process Status: Acute (16) Generalized weakness Status: Acute (17) Headache Status: Acute (18) Intractable back pain Status: Acute (19) Intractable back pain Status: Acute (20) Lumbar compression fracture Status: Acute (21) Multiple fractures of thoracic spine Status: Acute (22) Multiple fractures of thoracic spine Status: Acute (23) Multiple fractures of thoracic spine Status: Acute (24) Peripheral edema Status: Acute (25) Precordial chest pain Status: Acute (26) Right facial numbness Status: Acute (27) Suicide attempt by acetaminophen overdose Status: Acute (28) Tylenol overdose Status: Acute (29) Unstable angina Status: Acute (30) Urinary retention Status: Acute (31) Urinary retention Status: Acute Review of Systems Constitutional: + fatigue, + weakness, No chills, No fever, No problem reported , No sweats, No weight loss Eyes: No diplopia, No discharge, No eye pain, No redness, No worsening of vision ENT: No dental problems, No hearing loss, No nasal symptoms, No sore throat, No tinnitus, No trouble swallowing, No unusual epistaxis Respiratory: No cough, No dyspnea at rest, No dyspnea on exertion, No hemoptysis, No shortness of breath, No sputum, No wheezing Cardiac: No PND, No chest pain, No claudication, No edema, No orthopnea, No palpitations Abdomen: No constipation, No diarrhea, No nausea, No pain, No vomiting Musculoskeletal: + joint pain, No calf pain, No muscle pain, No swelling Female : No abnormal vaginal bleeding, No dysuria, No hematuria, No incontinence, No urinary frequency, No vaginal discharge Neurologic: + balance problems, + problem reported (facial droop is not new), + weakness, No memory loss, No numbness/tingling, No paralysis, No vertigo Psychiatric: No anhedonism, No anxiety, No depression symptoms, No insomnia, No substance abuse Heme: No abnormal bleeding/bruising, No clotting problems, No night sweats, No swollen lymph nodes Endo: No excessive thirst, No excessive urination, No fatigue Skin: No bleeding, No color change, No itch, No new/changing skin lesions, No rash Objective Vital Signs Date Time Temp Pulse Resp B/P Pulse Ox O2 Delivery O2 Flow Rate FiO2 12/09/16 08:10 Room Air 12/09/16 07:24 37.0 78 19 122/73 96 Room Air 12/09/16 01:35 146/76 12/09/16 00:50 Room Air 12/09/16 00:50 Room Air 12/09/16 00:37 37.3 100 16 166/75 93 Room Air 12/09/16 00:22 95 20 161/91 97 12/08/16 23:17 96 20 152/91 97 Room Air 12/08/16 21:41 93 20 123/70 98 Room Air 12/08/16 20:46 93 12/08/16 20:00 93 20 131/60 99 Room Air 12/08/16 18:25 36.8 87 18 111/59 96 Room Air Physical Exam General Appearance: WD/WN, no apparent distress, + pertinent finding (obesity) Eyes: normal inspection, PERRL, EOMI, sclerae normal ENT: normal ENT inspection, hearing grossly normal, pharynx normal Neck: supple, no adenopathy, thyroid normal, no JVD, no carotid bruits, trachea midline Respiratory/Chest: chest non-tender, lungs clear, normal breath sounds, no respiratory distress, no accessory muscle use, + decreased breath sounds Cardiovascular: regular rate, rhythm, no edema, no gallop, no JVD, no murmur Abdomen: normal bowel sounds, non tender, soft, no organomegaly, no pulsatile mass Extremities: no pedal edema, normal capillary refill, pelvis stable, + pertinent finding (middle lower back local tender when patient) Neurologic/Psychiatric: no motor/sensory deficits, alert, normal mood/affect, oriented x 3, + pertinent finding (facial droop is not new) Skin: normal color, warm/dry, no rash Lymphatic: no adenopathy Laboratory Results Last 24 Hours Test 12/08/16 19:55 12/08/16 22:40 12/09/16 01:30 12/09/16 07:45 White Blood Count 9.36 K/uL 8.78 K/uL Red Blood Count 3.95 M/uL 3.83 M/uL Hemoglobin 10.3 g/dL 10.0 g/dL Hematocrit 32.0 % 31.2 % Mean Corpuscular Volume 81.0 fL 81.5 fL Mean Corpuscular Hemoglobin 26.1 pg 26.1 pg Mean Corpuscular Hemoglobin Concent 32.2 g/dl 32.1 g/dl Platelet Count 331 K/uL 280 K/uL Mean Platelet Volume 8.7 fL 8.4 fL Neutrophils (%) (Auto) 59.8 % 57.3 % Lymphocytes (%) (Auto) 27.4 % 27.3 % Monocytes (%) (Auto) 10.3 % 11.4 % Eosinophils (%) (Auto) 2.0 % 3.5 % Basophils (%) (Auto) 0.2 % 0.2 % Neutrophils # (Auto) 5.60 K/uL 5.02 K/uL Lymphocytes # (Auto) 2.56 K/uL 2.40 K/uL Monocytes # (Auto) 0.96 K/uL 1.00 K/uL Eosinophils # (Auto) 0.19 K/uL 0.31 K/uL Basophils # (Auto) 0.02 K/uL 0.02 K/uL RDW Standard Deviation 56.2 fL 56.4 fL RDW Coefficient of Variation 18.8 % 19.0 % Immature Granulocyte % (Auto) 0.3 % 0.3 % Immature Granulocyte # (Auto) 0.03 K/uL 0.03 K/uL Prothrombin Time 11.8 SECONDS Prothromb Time International Ratio 1.1 Activated Partial Thromboplast Time 23.3 SECONDS Partial Thromboplastin Ratio 0.9 Sodium Level 140 mmol/L 139 mmol/L Potassium Level 3.1 mmol/L 3.1 mmol/L Chloride Level 103 mmol/L 104 mmol/L Carbon Dioxide Level 29 mmol/L 27 mmol/L Anion Gap 8.0 mmol/L 8.0 mmol/L Blood Urea Nitrogen 29 mg/dl 24 mg/dl Creatinine 1.50 mg/dl 1.40 mg/dl Est Creatinine Clear Calc Drug Dose 30.5 ml/min 32.7 ml/min Estimated GFR () 37.7 41.0 Estimated GFR (Non- 32.6 35.4 BUN/Creatinine Ratio 19.4 16.9 Random Glucose 64 mg/dl 121 mg/dl Calcium Level 9.7 mg/dl 9.7 mg/dl Magnesium Level 2.7 mg/dl 2.6 mg/dl Total Bilirubin 0.3 mg/dl Direct Bilirubin < 0.1 mg/dl Aspartate Amino Transf (AST/SGOT) 12 U/L Alanine Aminotransferase (ALT/SGPT) 13 U/L Alkaline Phosphatase 59 U/L Total Creatine Kinase 63 U/L Creatine Kinase MB < 0.5 ng/ml Creatine Kinase MB Ratio Troponin I < 0.015 ng/ml Total Protein 7.4 gm/dl Albumin 3.3 gm/dl Lipase 100 U/L Bedside Glucose 71 mg/dl Urine Color YELLOW Urine Appearance CLOUDY Urine pH 7.0 Urine Specific [place] 1.013 Urine Protein NEG Urine Glucose (UA) NEG Urine Ketones NEG Urine Occult Blood 3+ Urine Nitrite NEG Urine Bilirubin NEG Urine Urobilinogen NEG Urine Leukocyte Esterase LARGE Urine WBC (Auto) >30 /hpf Urine RBC (Auto) 0-4 /hpf Urine Hyaline Casts (Auto) 1-5 /lpf Urine Epithelial Cells (Auto) 10-20 /lpf Urine Bacteria (Auto) 2+ Hypersegmented Polys 1+ Test 12/09/16 08:07 12/09/16 11:15 12/09/16 11:39 Bedside Glucose 122 mg/dl 175 mg/dl Assessment and Plan 81-year-old female admitted on November [id number] after developing severe upper back pain following a fall that occurred earlier in the day. Per progress note , she lost her balance while walking with her walker, and fell backwards on her back did not have loss of consciousness prior, and she did not hit her head after falling. history of vertigo, presently is on Coumadin, reports no other injuries after falling. Status post mechanical fall/multiple old thoracic vertebral fractures/old C7 compression fracture With cervical and upper thoracic area pain, Stable pain better controlled Until new current care CAD/hypertension/atrial fibrillation Stable continue clopidogrel 75 mg by mouth daily, diltiazem 30 mg by mouth 3 times a day, Continue HCTZ 12.5 mg by mouth daily, Imdur extended release 120 mg by mouth every morning, Continue potassium extended release 20 mEq by mouth twice a day, Ranexa 1000 mg by mouth every 12 hours, or prolonged ER 60 mg by mouth every morning. Diabetes mellitus--blood sugar was 64 on arrival. Cut Lantus 45 units to half to start subcutaneous every evening. Continue Accu-Cheks before meals and at bedtime with NovoLog coverage. Hypercholesterolemia--continue simvastatin 40 mg by mouth at bedtime. GERD--continue pantoprazole 40 mg by mouth every afternoon. Peripheral neuropathy--continue topiramate 200 mg by mouth twice a day. Depression/dementia--continue Abilify 2 mg by mouth every morning, citalopram 20 mg by mouth daily, Lexapro 10 mg by mouth daily, topiramate 200 mg by mouth twice a day, and Namenda 10 mg by mouth twice a day. Chronic prednisone--continue 5 mg by mouth daily. She does not need stress dose at this time. Continue PT OT assessment, social staff worker consult for inpatient rehabilitation. GI and DVT prophylaxis covered Discussed with patient about care plan, answer questions Continued [facility] stay due to: home environment unsafe for pt Discharge planning: rehab hospital
[2016-12-09] MEDS ORDERED: GLUCAGON FOR INJ 1 MG VIAL SQ PRN (12:45)
[2016-12-09] MEDS ORDERED: GLUCOSE 40% GEL 15 GM TUBE PO PRN (12:45)
[2016-12-09] MEDS ORDERED: GLUCOSE 10 TABS/TUBE PO PRN (12:45)
[2016-12-09] MEDS ORDERED: DEXTROSE 50% 50 ML SYR IV PRN (12:45)
[2016-12-09] MEDS: INSULIN ASPART 100 UNITS/ML 3 ML PEN SC SCH ×3 (14:36→21:32)
[2016-12-09 15:37] VITALS: BP 138/64; PULSE 77; TEMP 36.7; O2SAT 97
[2016-12-09 16:00] VITALS: O2SAT 97
[2016-12-09] MEDS ORDERED: SIMVASTATIN 40 MG TAB PO SCH (21:00)
[2016-12-09] MEDS ORDERED: INSULIN GLARGINE SOLOSTAR 100 UNITS/ML 3 ML PEN SC SCH (21:00)
[2016-12-09] MEDS: HYDROCODONE/ACETAMOPHEN 5/325MG TAB PO PRN (21:39)
[2016-12-09 22:36] VITALS: BP 110/68; PULSE 70; TEMP 37; O2SAT 96
[2016-12-10] MEDS: MoRPHine SULFATE 2 MG/ML CARP IV PRN ×2 (00:42→06:00)
[2016-12-10 06:18] LABS: BASO % 0.2 %; BASO ABS # 0.02 K/uL (0-0.2); COMPLETE YES; EOS % 4.2 %; HEMATOCRIT 30.2 % (37-47); IG% 0.2 %; LYMPH % 34.8 %; LYMPH ABS # 3.03 K/uL (1.2-3.4); MEAN CELL VOLUME 80.7 fL (80-100); MEAN CORPUSCULAR HEMOGLOBIN 25.7 pg (25-34); MEAN CORPUSCULAR HGB CONC 31.8 g/dl (32-36); MEAN PLATELET VOLUME 8.9 fL (7.4-10.4); MONO % 10.9 %; NEUT % 49.7 %; PLATELET COUNT 299 K/uL (130-400); RED BLOOD COUNT 3.74 M/uL (4.2-5.4); WHITE BLOOD COUNT 8.71 K/uL (4.8-10.8)
[2016-12-10 06:56] LABS: BUN/CREATININE RATIO 15.2 (10-20); CALCIUM 9.8 mg/dl (8.5-10.1); CREATININE 1.8 mg/dl (0.60-1.20); MAGNESIUM 2.6 mg/dl (1.8-2.4); POTASSIUM 4.2 mmol/L (3.5-5.1)
[2016-12-10 07:09] VITALS: BP 117/67; PULSE 69; TEMP 36.5; O2SAT 97
[2016-12-10] MEDS ORDERED: CHOLECALCIFEROL 1000 INTER.UNIT TAB PO SCH (09:00)
[2016-12-10] MEDS: POLYETHYLENE (MIRALAX) 17 GM PACK PO SCH (10:05)
[2016-12-10] MEDS: CALCIUM 600MG + VIT D 400 IU TAB PO SCH (10:05)
[2016-12-10] MEDS: CeleBREX 200 MG CAP PO SCH (10:06)
[2016-12-10] MEDS: PANTOprazole SOD 40 MG TAB PO SCH (10:07)
[2016-12-10] MEDS: RANOLAZINE 500 MG ER TAB PO SCH (10:08)
[2016-12-10] MEDS: DILTIAZEM HCL 30 MG TAB PO SCH ×2 (10:09→13:17)
[2016-12-10] MEDS: DOCUSATE SODIUM 100 MG CAP PO SCH (10:09)
[2016-12-10] MEDS: PROPRANOLOL HCL 60 MG LA CAP PO SCH (10:09)
[2016-12-10] MEDS: CLOPIDOGREL BISULFATE 75 MG TAB PO SCH (10:09)
[2016-12-10] MEDS: HYDROCHLOROTHIAZIDE 25 MG TAB PO SCH (10:10)
[2016-12-10] MEDS: ESCITALOPRAM OXALATE 10 MG TAB PO SCH (10:10)
[2016-12-10] MEDS: ISOSORBIDE MONONITRATE 60 MG TABCR PO SCH (10:11)
[2016-12-10] MEDS: SENNA 8.6 MG TAB PO SCH (10:11)
[2016-12-10] MEDS: ARIPIprazole 1 MG/ML ORAL SOLN 150 ML BTL PO SCH (10:11)
[2016-12-10] MEDS: TRAMADOL HCL 50 MG TAB PO PRN (10:14)
[2016-12-10] MEDS: INSULIN ASPART 100 UNITS/ML 3 ML PEN SC SCH ×2 (10:16→13:22)
[2016-12-10] MEDS: TOPIRAMATE 100 MG TAB PO SCH (10:19)
[2016-12-10] MEDS: POTASSIUM CHLORIDE 20 MEQ TABCR PO SCH (10:21)
[2016-12-10] MEDS: MEMANTINE 10 MG TAB PO SCH (10:22)
[2016-12-10] MEDS ORDERED: CIPROFLOXACIN 500 MG TAB PO STA (10:59)
[2016-12-10] MEDS ORDERED: cipro (11:01)
[2016-12-10] MEDS ORDERED: INSDGIPEN SC (11:01)
[2016-12-10] MEDS ORDERED: VTMD1000 PO (11:01)
[2016-12-10] MEDS ORDERED: ULT50X PO (11:01)
[2016-12-10] MEDS ORDERED: CIPR1TAB11 PO (11:01)
--- NOTE | 2016-12-10 11:07 | Discharge Instructions ---
Discharge Instructions Date of Service Dec 10, 2016. Admission Reason for Admission: Thoracic Spine Fx, Weakness Discharge Discharge Diagnosis / Problem: back pain Discharge Goals Goal(s): Decrease discomfort, Improve function, Increase independence, Improve disease control, Improve nutritional status, Learn about illness, Diagnostic testing, Therapeutic intervention, Prevent Disease Progression, Specific goals Activity Recommendations Activity Level: Up Ad Mariela (fall precatuion) Therapies: Physical Therapy, Occupational Therapy . Additional Information Patient informed of condition: Yes Advance Directives: No DNR: No Level of Care: Acute Rehab Communicable Disease: No Prognosis: Stable Instructions / Follow-Up Instructions / Follow-Up you are Status post mechanical fall/multiple old thoracic vertebral fractures/ old C7 compression fracture you need to continue rehab, fall precaution you have Diabetes mellitus--blood sugar was 64 before admission. Cut Lantus 45 units to half to start subcutaneous every evening. this medicine dose should be adjusted accordingly you possible have acute on chronic renal failure with worsening renal function today, you need to check labs of Bmp in 3-5 days with your pcp to follow up you have urinary tract infection, you need to completing antibiotics I ordered - you need to follow up with your primary care physician in 1 week, - take medication as instructed, never overdose or any misuse, or take with alcohol, because misuse of medicine may cause organ damage or , call your primary care physician if have questions of medicaitons. - call your primary care physician OR go to local emergency room if has any fever/chill, chest pain, shortness of breathing, nausea/vomiting/abdominal pain , facial droop/slurry speech/local weakness, or if has any questions. - fall precaution - diet as instructed - you should understand that it is important to follow up the above instruction , and "not following the above instruction" may cause delayed or missed care of your medical conditions which may cause permanent organ damage and even . Current Hospital Diet Patient's current hospital diet: AHA Diet (Heart Healthy), Diabetes Type 2 Diet Discharge Diet Recommended Diet: Diabetes Type 2 Diet Pending Studies Studies pending at discharge: no Physician Orders On Transfer POLST Discussion: without POLST completion Laboratory Results Meds Administered (Past 24Hrs) Medications (Trade) Dose Ordered Sig/Phil Route Start Time Stop Time Status Last Admin Dose Admin Fentanyl Citrate (Fentanyl Inj) 50 mcg Q20M PRN IV 12/08/16 18:30 12/09/16 01:04 DC 12/08/16 22:34 50 MCG Ondansetron HCl 4 mg 4 mg NOW STAT IV 12/08/16 18:27 12/08/16 18:30 DC 12/08/16 19:03 4 MG Potassium Chloride/Dextrose/ Sod Cl (D5W And 1/2nss + 20meq KCl) 1,000 ml @ 100 mls/hr Q10H IV 12/09/16 01:00 12/09/16 12:21 DC 12/09/16 10:39 100 MLS/HR Celecoxib (CeleBREX CAP) 200 mg DAILY PO 12/09/16 09:00 01/08/17 08:59 12/10/16 10:06 200 MG Clopidogrel Bisulfate (plAVix TAB) 75 mg DAILY PO 12/09/16 09:00 01/08/17 08:59 12/10/16 10:09 75 MG Diltiazem HCl (Cardizem Tab) 30 mg TID PO 12/09/16 09:00 01/08/17 08:59 12/10/16 10:09 30 MG Diphenhydramine HCl (Benadryl Cap) 50 mg QPM PRN PO 12/08/16 23:15 01/07/17 23:14 12/10/16 10:14 50 MG Docusate Sodium (coLACE CAP) 100 mg BID PO 12/09/16 09:00 01/08/17 08:59 12/10/16 10:09 100 MG Escitalopram Oxalate (Lexapro Tab) 10 mg DAILY PO 12/09/16 09:00 01/08/17 08:59 12/10/16 10:10 10 MG Hydrochlorothiazide (Hydrochlorothiazide Tab) 12.5 mg DAILY PO 12/09/16 09:00 01/08/17 08:59 12/10/16 10:10 12.5 MG Isosorbide Mononitrate (Imdur Ext Rel Tab) 120 mg QAM PO 12/09/16 09:00 01/08/17 08:59 12/10/16 10:11 120 MG Memantine (Namenda Tab) 10 mg BID PO 12/09/16 09:00 01/08/17 08:59 12/10/16 10:22 10 MG Pantoprazole Sodium (Protonix Tab) 40 mg BID PO 12/09/16 09:00 01/08/17 08:59 12/10/16 10:07 40 MG Potassium Chloride (Klor-Con Tab) 20 meq BID PO 12/09/16 09:00 01/08/17 08:59 12/10/16 10:21 20 MEQ Prednisone (PredniSONE TAB) 10 mg DAILY PO 12/09/16 09:00 01/08/17 08:59 12/10/16 10:08 10 MG Propranolol HCl (Inderal La Cap) 60 mg QAM PO 12/09/16 09:00 01/08/17 08:59 12/10/16 10:09 60 MG Senna (Senokot Tab) 8.6 mg DAILY PO 12/09/16 09:00 01/08/17 08:59 12/10/16 10:11 8.6 MG Simvastatin (Zocor Tab) 40 mg HS PO 12/09/16 21:00 01/08/17 20:59 12/09/16 21:31 40 MG Topiramate (Topamax Tab) 200 mg BID PO 12/09/16 09:00 01/08/17 08:59 12/10/16 10:19 200 MG Aripiprazole (Abilify Soln) 2 mg QAM PO 12/09/16 09:00 01/08/17 08:59 12/10/16 10:11 2 MG Ranolazine (Ranexa ER Tab) 1,000 mg Q12 PO 12/09/16 09:00 01/08/17 08:59 12/10/16 10:08 1,000 MG Calcium/Vitamin D (Caltrate Plus Tab) 1 tab BID PO 12/09/16 09:00 01/08/17 08:59 12/10/16 10:05 1 TAB Polyethylene (Miralax Powder Packet) 17 gm DAILY PO 12/09/16 09:00 01/08/17 08:59 12/10/16 10:05 17 GM Potassium Chloride (Klor-Con M10) 40 meq 1130 ONCE PO 12/09/16 11:30 12/09/16 11:31 DC 12/09/16 11:47 40 MEQ Cholecalciferol (Vitamin D Tab) 2,000 inter.unit QAM PO 12/10/16 09:00 01/09/17 08:59 12/10/16 10:06 2,000 INTER.UNIT Insulin Aspart (novoLOG ASPART) SLIDING SCALE G... ACHS ID 12/09/16 12:00 01/08/17 11:59 12/10/16 10:16 1 UNITS Insulin Glargine (Lantus Solostar Pen) 22 unit QPM ID 12/09/16 21:00 01/08/17 20:59 12/09/16 21:35 22 UNIT Medical Emergencies . Who to Call and When: Medical Emergencies: If at any time you feel your situation is an emergency, please call 911 immediately. . Non-Emergent Contact Non-Emergency issues call your: Primary Care Provider . . "Provider Documentation" section prepared by Jimmy Mills. Core Measure Problem Core Measures: None
[2016-12-10] MEDS: HYDROCODONE/ACETAMOPHEN 5/325MG TAB PO PRN (12:00)
--- NOTE | 2016-12-10 12:11 | Discharge Summary ---
Discharge Summary Date of Service Dec 10, 2016. 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 (2) Depression Status: Chronic Immunizations: Have You Had Influenza Vaccine: No History of Tetanus Vaccine?: utd History of Pneumococcal: Yes Pneumococcal Date: Sep 24, 2010 History of Hepatitis B Vaccine: No Procedures: No Consultations: No Medication Reconciliation New Medications: Ciprofloxacin Tab (Cipro) 250 Mg Tab 1 TAB PO BID for 5 Days, #10 TAB [cipro] () Cholecalciferol (Vitamin D3) 1,000 Inter.unit Tab 2000 INTER.UNIT PO QAM for 30 Days, #6 TAB Insulin Glargine (Lantus Solostar) 100 Unit/Ml Inj 22 UNIT SC QPM for 7 Days Tramadol HCl (Tramadol HCl) 50 Mg Tab 100 MG PO Q4H PRN for mild Pain for 5 Days, #40 TAB Continued Medications: Acetaminophen (Tylenol) 500 Mg Tab 1000 MG PO Q4 PRN for Pain, TAB Albuterol Hfa (Ventolin Hfa) 200 Puffs/40405 Mcg Aers 1-2 PUFFS INH Q4 PRN for Shortness of Breath, #1 INHALER Alendronate Sodium (Fosamax) 70 Mg Tab 70 MG PO WK, #4 TAKE ON WEDNESDAYS TAKE 30 MIN PRIOR TO FOOD/OTHER MEDS. REMAIN UPRIGHT FOR AT LEAST 30 MINS. Aripiprazole (Abilify) 2 Mg Tab 2 MG PO QAM, TAB Calcitonin [place] (Calcitonin-[place]) 30 [place]/3.7 Ml Soln 1 SPRAY NA DAILY PRN for PRN ALTERNATE NOSTRILS DAILY Calcium Carbonate-Vitamin D (Oscal 500/200 D-3) 1 Tab Tab 1 TAB PO AMPM TAKE WITH BREAKFAST & SUPPER Celecoxib (CeleBREX) 200 Mg Cap 200 MG PO DAILY, CAP Citalopram Hydrobromide (Citalopram Hydrobromide) 20 Mg Tab 20 MG PO DAILY for 90 Days, #90 TAB 3 Refills Clopidogrel (Plavix) 75 Mg Tab 75 MG PO DAILY, TAB Diltiazem Hcl (Cardizem) 30 Mg Tab 30 MG PO TID, TAB Diphenhydramine Hcl (Benadryl Allergy) 25 Mg Cap 50 MG PO QPM PRN for Sleep for 30 Days, #30 CAP 2 25MG CAPS Docusate Sodium (Colace) 100 Mg Cap 1 CAP PO BID for 15 Days, #30 CAP Escitalopram (Lexapro) 10 Mg Tab 10 MG PO DAILY, TAB Hydrochlorothiazide (Hydrochlorothiazide) 25 Mg Tab 12.5 MG PO DAILY Insulin Aspart (Novolog Flexpen) 100 Units/Ml Inj SC TIDM < 60 HYPOGLYCEMIA PROTOCOL 60-130 = 0 UNITS 131-180 = 2 UNITS 181-240 = 4 UNITS 241-300 = 6 UNITS 301-350 = 8 UNITS 351-400 = 10 UNITS >400 = 12 UNITS AND CALL Isosorbide Mononitrate Ext Rel (Imdur Ext Rel) 60 Mg Ertab 120 MG PO QAM, TAB TAKE 2 60MG TABS Memantine (Namenda) 10 Mg Tab 10 MG PO BID, TAB Nitroglycerin (Nitrostat) 0.4 Mg Tab 0.4 MG UT PRN, BTL PRN EVERY 5 MINUTES X3 FOR CHEST PAIN Omeprazole (Prilosec) 20 Mg Capcr 20 MG PO DAILY, CAP Pantoprazole (Protonix) 40 Mg Tab 40 MG PO QPM, #30 TAB Polyethylene Glycol 3350 (Miralax) 1 Pow Pow 17 GM PO DAILY, #527 GM GIVE @ 1200 Potassium Ext Rel (Klor-Con) 20 Meq Tabcr 20 MEQ PO BID, TAB Prednisone (Prednisone) 5 Mg Tab 5 MG PO DAILY, TAB Propranolol Hcl (Propranolol ER) 60 Mg Capcr 60 MG PO QAM Ranolazine (Ranexa) 500 Mg Tab 1000 MG PO Q12 for 90 Days, #360 TAB 3 Refills 2 500MG TABS Senna (Senokot) 8.6 Mg Tab 1 TAB PO DAILY, TAB Simvastatin (Zocor) 40 Mg Tab 40 MG PO HS, TAB Topiramate (Topamax) 200 Mg Tab 200 MG PO BID, TAB Vitamin E (Vitamin E) Unknown Strength Tab Unknown Dose Discontinued Medications: Insulin Glargine (Lantus Solostar) 100 Unit/Ml Inj 45 UNIT SC PM, PEN Discharge Exam Sitting up in chair, doing well, reportedly has up and walk with help, no other complaint Review of Systems: Constitutional: No chills, No fatigue, No fever, No problem reported, No sweats, No weakness, No weight loss Eyes: No diplopia, No discharge, No eye pain, No problem reported, No redness, No worsening of vision ENT: No dental problems, No hearing loss, No nasal symptoms, No problem reported, No sore throat, No tinnitus, No trouble swallowing, No unusual epistaxis Respiratory: No cough, No dyspnea at rest, No dyspnea on exertion, No hemoptysis, No problem reported, No shortness of breath, No sputum, No wheezing Cardiovascular: No PND, No chest pain, No claudication, No edema, No orthopnea, No palpitations, No problem reported Abdomen: No GI bleeding, No constipation, No diarrhea, No nausea, No pain, No problem reported, No vomiting Musculoskeletal: No calf pain, No joint pain, No muscle pain, No problem reported, No swelling Genitourinary - Female: No dysmenorrhea, No dysuria, No hematuria, No menorrhagia, No metrorrhagia, No , No problem reported, No rash, No urinary frequency, No urinary incontinence, No urinary retention, No urinary urgency, No vaginal bleeding, No vaginal discharge, No vaginal itching, No vulvodynia Neurologic: + problem reported (right facial droop and right-sided weakness is not new), No balance problems, No memory loss, No numbness/tingling, No paralysis, No vertigo, No weakness Psychiatric: No anhedonism, No anxiety, No depression symptoms, No insomnia , No problem reported, No substance abuse Endocrine: No excessive thirst, No excessive urination, No fatigue, No problem reported Hematologic / Lymphatic: No abnormal bleeding/bruising, No clotting problems , No night sweats, No problem reported, No swollen lymph nodes Integumentary: No bleeding, No color change, No itch, No new/changing skin lesions, No problem reported, No rash Physical Exam: General Appearance: WD/WN, no apparent distress Eyes: normal inspection, PERRL, EOMI ENT: normal ENT inspection, hearing grossly normal, TMs normal Neck: supple, no adenopathy, thyroid normal Respiratory/Chest: chest non-tender, + decreased breath sounds Cardiovascular: regular rate, rhythm, no edema, no gallop, no JVD Abdomen / GI: normal bowel sounds, non tender, soft, no organomegaly, no pulsatile mass Extremities: normal inspection, no calf tenderness, normal capillary refill Neurologic/Psychiatric: alert, normal mood/affect, normal reflexes, oriented x 3, + pertinent finding (right facial droop, right side mildly weakness, but muscle strength still 5 out of 5) Skin: normal color, warm/dry, no rash Hospital Course 81-year-old female admitted on November 132016 after developing severe upper back pain following a fall that occurred earlier in the day. Per progress note , she lost her balance while walking with her walker, and fell backwards on her back did not have loss of consciousness prior, and she did not hit her head after falling. history of vertigo, presently is on Coumadin, reports no other injuries after falling. Status post mechanical fall/multiple old thoracic vertebral fractures/old C7 compression fracture With cervical and upper thoracic area pain, Stable pain better controlled Continue current care CAD/hypertension/atrial fibrillation Stable continue clopidogrel 75 mg by mouth daily, diltiazem 30 mg by mouth 3 times a day, Continue Imdur extended release 120 mg by mouth every morning, I will holdHCTZ 12.5 mg by mouth daily and potassium extended release 20 mEq by mouth twice a day, because of acute on chronic kidney failure Will continue Ranexa 1000 mg by mouth every 12 hours, or prolonged ER 60 mg by mouth every morning. Acute on chronic kidney failure stage II, hold HCTZ and potassium, encourage by mouth intake, need to follow up of BMP in 2 days and report the results to PCP on M.D. in [facility] Diabetes mellitus--blood sugar was 64 on arrival. Cut Lantus 45 units to half to start subcutaneous every evening. Blood glucose is around 130s which is less than 150, in the half dose of home dose Lantus, we'll continue the lower dose of Lantus, dose of the medicine need to be adjusted Continue Accu-Cheks before meals and at bedtime with NovoLog coverage. Hypercholesterolemia--continue simvastatin 40 mg by mouth at bedtime. GERD--continue pantoprazole 40 mg by mouth every afternoon. Peripheral neuropathy--continue topiramate 200 mg by mouth twice a day. Depression/dementia--continue Abilify 2 mg by mouth every morning, citalopram 20 mg by mouth daily, Lexapro 10 mg by mouth daily, topiramate 200 mg by mouth twice a day, and Namenda 10 mg by mouth twice a day. Chronic prednisone--continue 5 mg by mouth daily. She does not need stress dose at this time. Continue PT OT assessment, social services assistant consult for inpatient rehabilitation. GI and DVT prophylaxis covered Discussed with patient about care plan, answer questions Instructions / Follow-Up you are Status post mechanical fall/multiple old thoracic vertebral fractures/ old C7 compression fracture you need to continue rehab, fall precaution you have Diabetes mellitus--blood sugar was 64 before admission. Cut Lantus 45 units to half to start subcutaneous every evening. this medicine dose should be adjusted accordingly you possible have acute on chronic renal failure with worsening renal function today, you need to check labs of Bmp in 3-5 days with your pcp to follow up, your medication of potassium and HCTZ was hold you have urinary tract infection, you need to completing antibiotics I ordered - you need to follow up with your primary care physician in 1 week, - take medication as instructed, never overdose or any misuse, or take with alcohol, because misuse of medicine may cause organ damage or , call your primary care physician if have questions of medicaitons. - call your primary care physician OR go to local emergency room if has any fever/chill, chest pain, shortness of breathing, nausea/vomiting/abdominal pain , facial droop/slurry speech/local weakness, or if has any questions. - fall precaution - diet as instructed - you should understand that it is important to follow up the above instruction , and "not following the above instruction" may cause delayed or missed care of your medical conditions which may cause permanent organ damage and even . Total Time Spent: Greater than 30 minutes This includes examination of the patient, discharge planning, medication reconciliation, and communication with other providers. Discharge Instructions Please refer to the electronic Patient Visit Report (Discharge Instructions) for additional information. Additional Copies To Mckinley Contreras M.D.
[2016-12-10 12:25] VITALS: BP 117/67; PULSE 69; TEMP 36.5; O2SAT 97
[2016-12-11] MEDS ORDERED: CIPROFLOXACIN 500 MG TAB PO SCH (09:00)
[2017-04-07] MEDS ORDERED: NF656 PO (15:43)
[2017-04-07] MEDS ORDERED: OXYC-57 PO (15:43)
[2017-04-07] MEDS ORDERED: MCRK20 PO (15:43)
[2017-07-02] MEDS ORDERED: LPR25 PO (13:18)
[2017-07-02] MEDS ORDERED: APIX1TAB3 PO (13:18)
== END 2016-12-10 13:50 | DRG 552 ==
LOC: ENRESERVTM → ENRESERVDT → EDBD 18:24 → C.EDC 18:25 → C.MSN 23:12 → EDBEDREQSVC 23:32
PROVIDERS: ADMIT Hospitalist; ATTEND Hospitalist
DX: M54.9 Dorsalgia, unspecified (principal); N18.5 Chronic kidney disease, stage 5; I12.0 Hypertensive chronic kidney disease with stage 5 chronic kidney disease or end stage renal disease; I48.2 Chronic atrial fibrillation; H54.41 Blindness, right eye, normal vision left eye; F32.9 Major depressive disorder, single episode, unspecified; E11.22 Type 2 diabetes mellitus with diabetic chronic kidney disease; K21.9 Gastro-esophageal reflux disease without esophagitis; E21.3 Hyperparathyroidism, unspecified; I73.9 Peripheral vascular disease, unspecified; F01.50 Vascular dementia, unspecified severity, without behavioral disturbance, psychotic disturbance, mood disturbance, and anxiety; E55.9 Vitamin D deficiency, unspecified; M06.9 Rheumatoid arthritis, unspecified; R20.0 Anesthesia of skin; I25.10 Atherosclerotic heart disease of native coronary artery without angina pectoris; Z87.81 Personal history of (healed) traumatic fracture; M85.80 Other specified disorders of bone density and structure, unspecified site; E11.42 Type 2 diabetes mellitus with diabetic polyneuropathy; Z79.52 Long term (current) use of systemic steroids; Z79.01 Long term (current) use of anticoagulants; E78.00 Pure hypercholesterolemia, unspecified; M19.90 Unspecified osteoarthritis, unspecified site; Z86.73 Personal history of transient ischemic attack (TIA), and cerebral infarction without residual deficits; Z82.49 Family history of ischemic heart disease and other diseases of the circulatory system; Z95.1 Presence of aortocoronary bypass graft; Z79.4 Long term (current) use of insulin

== ENCOUNTER 2016-12-30 20:22 | Observation (INO) | payer OTHER ==
[~2016-12-30] VITALS: Ht 157.5 cm; Wt 86.6 kg
[~2016-12-30 20:22] MED LIST changes: +ACET-1256 PO; -AGG PO; +ARIP2TAB3 PO; -ARTISOL12 OPB; +CITA20TA4 PO; +CLB/200 PO; +CLOP1TAB15 PO; +DILT40TA2 PO; -FURO-85 PO; -HYDROCODONE/ACETAMOPHEN 5/325MG TAB PO PRN; -IPRASOL4 INH; -MoRPHine SULFATE 4 MG/ML 1 ML CARP\\VIAL IV PRN; -NF656 TOP; +NMN10 PO; -NYST80OI TOP; -OSEL30CA PO; -OXYC-57 PO; +PRED-301 PO; +PRLSR20 PO; +SENN-61 PO; -SENN-65 PO; -TRAMADOL HCL 50 MG TAB PO PRN; +ULT50X PO; +VITA1TAB12; -VTMD PO; +VTMD1000 PO; +cipro
[2016-12-30] MEDS ORDERED: ONDANSETRON INJ 2 MG/ML 2 ML VIAL IV STA (21:01)
[2016-12-30] MEDS ORDERED: MoRPHine SULFATE 4 MG/ML 1 ML CARP\\VIAL IV STA ×2 (21:01→22:45)
[2016-12-30 21:28] LABS: BASO % 0.4 %; BASO ABS # 0.04 K/uL (0-0.2); COMPLETE YES; EOS % 3.8 %; HEMATOCRIT 31.8 % (37-47); IG% 0.3 %; LYMPH % 25.8 %; LYMPH ABS # 2.36 K/uL (1.2-3.4); MEAN CELL VOLUME 83.2 fL (80-100); MEAN CORPUSCULAR HEMOGLOBIN 26.2 pg (25-34); MEAN CORPUSCULAR HGB CONC 31.4 g/dl (32-36); MEAN PLATELET VOLUME 8.8 fL (7.4-10.4); MONO % 10.8 %; NEUT % 58.9 %; PLATELET COUNT 293 K/uL (130-400); RED BLOOD COUNT 3.82 M/uL (4.2-5.4); WHITE BLOOD COUNT 9.13 K/uL (4.8-10.8)
[2016-12-30 21:45] LABS: BUN/CREATININE RATIO 17.4 (10-20); CREATININE 1.3 mg/dl (0.60-1.20); POTASSIUM 3.5 mmol/L (3.5-5.1)
[2016-12-30 21:59] LABS: CALCIUM 8.9 mg/dl (8.5-10.1)
--- NOTE | 2016-12-30 21:59 | DIAGNOSTIC IMAGING REPORT ---
CT SCAN OF THE BRAIN WITHOUT IV CONTRAST CLINICAL HISTORY: Fall. COMPARISON STUDY: CT of the brain dated 12/08/2016. TECHNIQUE: Unenhanced axial CT scan of the brain is performed from the vertex to the skull base. FINDINGS: Brain parenchyma: There are age-related involutional changes noting [id number] subcortical and periventricular microangiopathic change. There is no hemorrhage, mass effect, or evidence of acute territorial ischemia by CT criteria. Harris-white matter is preserved. No extra-axial fluid collection is seen. Ventricles, sulci, cisterns: Prominent secondary to involutional change. Intracranial vasculature: There is advanced atherosclerotic calcification of the cavernous carotid and vertebral arteries. Calvarium: The skeletal structures are osteopenic. There is no depressed calvarial fracture. Sinuses and mastoids: The visualized paranasal sinuses are clear. The mastoid air cells are well pneumatized. Orbits: The bony orbits are grossly intact. There is a left ocular lens implant. IMPRESSION: Age-related changes as above with no hemorrhage, mass effect, or evidence of acute territorial ischemia by CT criteria. No significant change from 12/08/2016. Electronically signed by: Bobby Eugene M.D. 12/30/2016 9:57 PM Dictated Date/Time: 12/30/2016 9:55 PM
--- NOTE | 2016-12-30 22:10 | DIAGNOSTIC IMAGING REPORT ---
CT SCAN OF THE CERVICAL SPINE CLINICAL HISTORY: Fall. COMPARISON STUDY: CT scan of the cervical spine dated 12/08/2016. TECHNIQUE: CT scan of the cervical spine is performed from the skull base to the upper thoracic spine. Images are reviewed in the axial, sagittal, and coronal planes. IV contrast was not administered for this examination. FINDINGS: Skeletal structures: The skeletal structures are osteopenic. There is no evidence of fracture or subluxation involving the cervical spine. There is a chronic compression deformity of C7. The C7 vertebral bodies sclerotic. Minimally retropulsed fragments are again noted at this level. Vertebral body height is otherwise maintained. Alignment is preserved. Anterior osteophytes are noted throughout. The odontoid process and lateral masses are intact. The atlantoaxial articulation is preserved noting productive degenerative change. The spinous processes appear intact. There is moderate to advanced multilevel cervical spondylosis. Uncovertebral and facet arthropathy contribute to neural foraminal stenosis at most levels. Intervertebral discs: Mild multilevel degenerative disc space narrowing is noted. Central canal: Posterior disc osteophyte complexes at C4-C5, C5-C6, and C6-C7 likely contribute to mild acquired compromise of the central canal. Soft tissues: The prevertebral and paraspinous soft tissues are within normal limits. There is atherosclerotic calcification of the carotid bulbs. Calvarium: The visualized calvarium at the skull base appears intact. Brain parenchyma: Partially visualized brain parenchyma the skull base is within normal limits noting age-related involutional change. Sinuses and mastoids: The visualized paranasal sinuses are clear. The mastoid air cells are well pneumatized. Lung apices: Clear as visualized. IMPRESSION: 1. There is no evidence of fracture or subluxation involving the cervical spine. 2. Osteopenia, a chronic compression deformity of C7, and spondylotic change as above. Electronically signed by: Bobby Eugene M.D. 12/30/2016 10:07 PM Dictated Date/Time: 12/30/2016 9:57 PM
[2016-12-30] MEDS ORDERED: CHOL1000 PO (22:24)
[2016-12-30] MEDS ORDERED: INSDGIPEN SC (22:24)
[2016-12-30] MEDS ORDERED: AGG PO (22:28)
[2016-12-30] MEDS ORDERED: ISOS120T5 PO (22:28)
[2016-12-30] MEDS ORDERED: FURO80TA63 PO (22:28)
[2016-12-30] MEDS ORDERED: POTA20TA16 PO (22:28)
[2016-12-30] MEDS ORDERED: NORT25CA PO (22:28)
[2016-12-30] MEDS ORDERED: RANO1000 PO (22:28)
[2016-12-30] MEDS ORDERED: MECL1TAB42 PO (22:28)
[2016-12-30] MEDS ORDERED: REPA2TAB12 PO (22:28)
--- NOTE | 2016-12-30 22:45 | DIAGNOSTIC IMAGING REPORT ---
AP CHEST WITH RIGHT-SIDED RIB SERIES CLINICAL HISTORY: Fall. Chest wall pain. FINDINGS: An AP upright chest radiograph with 5 additional views may right-sided rib series is compared to study dated 12/08/2016. The heart is enlarged and there is atherosclerotic calcification of the thoracic aorta. The pulmonary vasculature is noncongested. Chronic interstitial thickening is similar to previous. The lungs and pleural spaces are clear. No pneumothorax is seen. The skeletal structures are osteopenic. There is no radiographic evidence of acute/distracted right-sided rib fracture as clinically queried. Degenerative change is noted throughout the thoracic spine. Nonunited T8 and T9 thoracic spinal fractures are similar to previous. Atherosclerotic calcification is noted in the right carotid bulb. IMPRESSION: 1. Cardiomegaly with no acute cardiopulmonary and bowel. 2. There is no radiographic evidence of acute/distracted right-sided rib fracture as clinically queried. 3. Nonunited T8 and T9 thoracic spinal fractures are again noted. These were better characterized on today's thoracic spinal CT. Electronically signed by: Bobby Eugene M.D. 12/30/2016 10:43 PM Dictated Date/Time: 12/30/2016 10:40 PM
--- NOTE | 2016-12-30 22:48 | DIAGNOSTIC IMAGING REPORT ---
SINGLE VIEW PELVIS; 2 VIEWS RIGHT HIP CLINICAL HISTORY: Fall with right hip pain. FINDINGS: An AP view of the pelvis with AP and frog-leg views of the right hip are compared to pelvic radiograph dated 01/04/2016. The examination is degraded by large body habitus. The skeletal structures are osteopenic. There is no radiographic evidence of fracture involving the hips or bony pelvis. Mild to moderate arthritic change is seen in both hips. Lumbosacral spondylosis is partially imaged. Sclerotic change is identified in the sacroiliac joints and pubic symphysis. The overlying soft tissues are within normal limits. Atherosclerotic calcification is observed in the femoral arteries. There is a nonobstructed abdominal bowel gas pattern. IMPRESSION: 1. There is no radiographic evidence of fracture in the hips or bony pelvis. 2. Osteopenia and degenerative change as above. Electronically signed by: Bobby Eugene M.D. 12/30/2016 10:46 PM Dictated Date/Time: 12/30/2016 10:44 PM
--- NOTE | 2016-12-30 23:13 | DIAGNOSTIC IMAGING REPORT ---
CT SCAN OF LUMBAR SPINE WITHOUT IV CONTRAST CLINICAL HISTORY: Fall with back pain. COMPARISON STUDY: Prior CT scans of the lumbar spine, most recently dated 12/08/2016. TECHNIQUE: CT scan of lumbar spine is performed from the lower thoracic spine to the sacrum. Images are reviewed in the axial, sagittal, coronal planes. IV contrast was not administered for this examination. FINDINGS: The skeletal structures are osteopenic. There is no evidence of acute fracture or malalignment. Chronic compression deformities of T12 and L1 are similar to previous. Vertebral body height is otherwise maintained throughout the lumbar spine. 7 mm of anterolisthesis at L4-L5 is unchanged. Alignment is otherwise preserved. The transverse and spinous processes appear intact. There is no evidence of spondylolysis. No lytic or blastic lesions are seen. Only mild degenerative disc space narrowing is seen throughout the lumbar spine. There is no evidence of large disc herniation. There is likely acquired compromise of the central canal at L4-L5 secondary to anterolisthesis. The visualized sacrum and bony pelvis appear intact. Sclerotic change is noted in the sacroiliac joints. There is advanced atherosclerotic calcification MR ectasia of the abdominal aorta. There is fatty atrophy of the paraspinous musculature. A left renal cyst is unchanged. The partially imaged kidneys demonstrate cortical atrophy. Cholelithiasis is noted. 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 IMPRESSION: 1. There is no evidence of acute fracture or malalignment involving the lumbar spine. 2. Chronic compression deformities of T12 and L1 are similar to previous. 3. Osteopenia and spondylotic change as above. 4. Cholelithiasis. 5. Additional findings as detailed above. Electronically signed by: Bobby Eugene M.D. 12/30/2016 11:11 PM Dictated Date/Time: 12/30/2016 10:13 PM
--- NOTE | 2016-12-30 23:15 | DIAGNOSTIC IMAGING REPORT ---
CT SCAN OF THE THORACIC SPINE WITHOUT IV CONTRAST CLINICAL HISTORY: Fall with back pain. COMPARISON STUDY: Prior CT scans of the thoracic spine, most recently dated 12/08/2016. TECHNIQUE: CT scan of the thoracic spine is performed from the lower cervical spine to the upper lumbar spine. Images are reviewed in the axial, sagittal, and coronal planes. IV contrast was not ministered for this examination. FINDINGS: The skeletal structures are osteopenic. There is no evidence of acute fracture or malalignment involving the thoracic spine. Chronic compression deformities of C7, T12, and L1 are unchanged. Nonunited fractures through the bodies of T8 and T9 are unchanged from prior studies. There is calcification of the anterior longitudinal ligament with flowing anterior osteophytes consistent with DISH. The transverse and spinous processes appear intact. Mild multilevel degenerative disc space narrowing is noted. No lytic or blastic lesions are seen. The paraspinous soft tissues are normal as imaged. There are healed right posterior rib fractures. No airspace consolidation or pleural effusion is identified. A calcified granuloma is noted in the right lower lobe. The heart appears enlarged and there is atherosclerotic calcification of the thoracic aorta. A left renal cyst is partially imaged. There is a small hiatal hernia. IMPRESSION: 1. There is no evidence of acute fracture or malalignment involving the thoracic spine. 2. Nonunited fractures through the bodies of T8 and T9 are unchanged from previous. 3. Chronic compression deformities as above. Electronically signed by: Bobby Eugene M.D. 12/30/2016 11:13 PM Dictated Date/Time: 12/30/2016 10:18 PM
[2016-12-31] VITALS (9 sets, daily range): BP systolic 108–164; BP diastolic 56–91; PULSE 73–117; TEMP 36.5–36.9; O2SAT 92–100; Ht 157.5 cm; Wt 86.6 kg
[2016-12-31] MEDS ORDERED: ONDANSETRON INJ 2 MG/ML 2 ML VIAL IV PRN (01:30)
[2016-12-31] MEDS ORDERED: POLYETHYLENE (MIRALAX) 17 GM PACK PO PRN (01:30)
[2016-12-31] MEDS ORDERED: ACETAMINOPHEN 325 MG TAB PO PRN (01:30)
[2016-12-31] MEDS ORDERED: ALUMINUM/MAGNESIUM/SIMETH (MAALOX MAX) 30 ML UDC PO PRN (01:30)
[2016-12-31] MEDS ORDERED: MAGNESIUM HYDROXIDE SUSP 30 ML UDC PO PRN (01:30)
[2016-12-31] MEDS ORDERED: ALBUTEROL HFA 8 GM INHALER INH PRN (01:45)
[2016-12-31] MEDS ORDERED: ACETAMINOPHEN 500 MG TAB PO PRN (01:45)
[2016-12-31] MEDS ORDERED: NITROGLYCERIN 0.4 MG SL PER TAB CHARGE UT SCH (01:45)
--- NOTE | 2016-12-31 02:45 | EMERGENCY ROOM VISIT NOTE ---
History Report prepared by Ara: Pati Ballard Under the Supervision of: Dr. Lan Yan M.D. First contact with patient: 20:52 Chief Complaint: PAIN (GENERALIZED) Stated Complaint: PAIN RIGHT SIDE, MISSED CHAIR History of Present Illness The patient is a 81 year old female who presents to the Emergency Room with complaints of worsening right sided pain beginning just prior to arrival. The patient states that she felt dizzy coming out of the bathroom and went to sit down at the dinning room table. She does have a history of vertigo. She missed the chair when she went to sit down and fell on her buttocks. The patient also hit her head on the table but denies LOC. She did not injure her leg during the fall. She states that after the fall she was up walking around with no pain. As time progressed however the pain worsened in her back and started radiating down into her entire right leg. She is also experiencing a slight headache. The patient states that her entire right side feels numb. She denies loss of bowel or bladder control. 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 The patient has been on Aggrenox for the past 2 weeks. She denies any other blood thinners. 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 Review of Systems See HPI for pertinent positives & negatives. A total of 10 systems reviewed and were otherwise negative. 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 (9) CEREBRAL THROMBOSIS W CEREBRAL INFARCTION (10) CEREBROVASC DISEASE NOS (11) Chest pain (12) CHRONIC KIDNEY DISEASE, STAGE V (13) Chronic pain (14) CVA (cerebral infarction) (15) CYSTIC KIDNEY DISEASE, UNSPECIFIED (16) Depression (17) Depression (18) Diabetes (19) Discharge planning issues (20) Elevated troponin (21) ESOPHAGEAL REFLUX (22) Fracture of thoracic spine (23) Heart disease (24) HTN (hypertension) (25) Hyperlipidemia (26) HYPERPARATHYROIDISM, UNSPECIFIED (27) Hypoglycemia (28) Intentional self-harm (29) Leg weakness, bilateral (30) Leukocytosis (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 (32) Osteoarthritis (33) PANCREATIC DISEASE NEC (34) Past Psychotropic Medications (35) PERIPH VASCULAR DIS NOS (36) Precordial chest pain (37) R sided numbness (38) Rheumatoid arthritis (39) Right sided weakness (40) Suicide attempt by acetaminophen overdose (41) Thoracic spine fracture (42) TIA (transient ischemic attack) (43) UTI (urinary tract infection) (44) VASCULAR DEMENTIA, UNCOMPLICATED (45) VERTIGO (46) VITAMIN D DEFICIENCY NOS (47) Wrist fracture Surgical Problems: (1) Hx of coronary artery bypass surgery Family History Heart disease Myocardial infarction Social History Smoking Status: Former Smoker Alcohol Use: none Drug Use: none Marital Status: single Housing Status: lives alone Occupation Status: retired Current/Historical Medications Scheduled Alendronate Sodium (Fosamax), 70 MG PO WK Calcium Carbonate-Vitamin D (Oscal 500/200 D-3), 1 TAB PO AMPM Cholecalciferol (Vitamin D3), 1 TAB PO DAILY Dipyridamole/Aspirin (Aggrenox 25-200 mg), 1 CAP PO BID Docusate Sodium (Colace), 1 CAP PO BID Escitalopram (Lexapro), 10 MG PO QAM Furosemide (Lasix), 80 MG PO BID Insulin Glargine (Lantus Solostar), 45 UNITS SC QPM Isosorbide Mononitrate Ext Rel (Imdur Ext Rel), 120 MG PO QAM Meclizine Hcl (Meclizine Hcl), 1 TAB PO QAM Nitroglycerin (Nitrostat), 0.4 MG UT PRN Nortriptyline (Pamelor), 25 MG PO QPM Pantoprazole (Protonix), 40 MG PO QPM Potassium Ext Rel (Klor-Con), 20 MEQ PO QAM Prednisone (Prednisone), 5 MG PO DAILY Ranolazine (Ranexa), 1 TAB PO BID Repaglinide (Prandin), 2 MG PO AC Simvastatin (Zocor), 40 MG PO HS Topiramate (Topamax), 200 MG PO BID Scheduled PRN Acetaminophen (Tylenol), 1,000 MG PO Q4 PRN for Pain Albuterol Hfa (Ventolin Hfa), 1-2 PUFFS INH Q4 PRN for Shortness of Breath Diphenhydramine Hcl (Benadryl Allergy), 50 MG PO QPM PRN for Sleep Allergies Coded Allergies: Iodinated Diagnostic Agents (Verified Allergy, Severe, ANAPHYLAXIS, ) [place] (Verified Allergy, Severe, RASH, HIVES, TROUBLE BREATHING, 12/30/16 ) Promethazine (Verified Allergy, Severe, HIVES, TROUBLE BREATHING, 12/30/16) Bupropion (Verified Allergy, Intermediate, RASH, 12/30/16) Diazepam (Verified Allergy, Intermediate, Rash, 12/30/16) Reported by PT. Erythromycin (Verified Allergy, Intermediate, RASH, 12/30/16) Iodine (Verified Allergy, Intermediate, RASH, HIVES, 12/30/16) Penicillins (Verified Allergy, Intermediate, RASH, 12/30/16) Phenytoin (Verified Allergy, Unknown, PT UNSURE, 12/30/16) Tamsulosin (Verified Adverse Reaction, Intermediate, DIZZINESS, 12/30/16) Physical Exam Vital Signs Date Time Temp Pulse Resp B/P Pulse Ox O2 Delivery O2 Flow Rate FiO2 12/30/16 23:53 92 18 131/80 96 Room Air 12/30/16 21:59 90 18 138/93 98 Room Air 12/30/16 20:54 82 12/30/16 20:37 36.7 92 19 173/78 98 Room Air Physical Exam Constitutional: Vital signs reviewed. Eyes: Pupils are equal round reactive to light. Conjunctiva are noninjected. ENT: Pharynx is clear without erythema or exudate. Mucous membranes are moist. No midline tenderness to the cervical spine. Respiratory: Clear to auscultation bilaterally. Breath sounds are equal bilaterally. Cardiovascular: Regular rate and rhythm. No rubs or gallops. GI: Soft, nondistended and nontender. Bowel sounds are present. Musculoskeletal: No tenderness to the right upper or lower extremities. Positive straight leg raise right leg. Tenderness to the right lower ribs. Integumentary: No cyanosis. Neurologic: The patient is awake and alert. Cranial nerves III-XII are intact except, blind in right eye with lazy eye and decreased right-sided. Motor is intact in all extremities although the patient is unable to raise her right leg secondary to pain in her back. Sensation is intact to light touch all extremities. Normal speech. Psychiatric: Normal affect. Medical Decision & Procedures ER Provider Diagnostic Interpretation: Radiology results as stated below per my review and the radiologist's interpretation: CT SCAN OF THE THORACIC SPINE WITHOUT IV CONTRAST CLINICAL HISTORY: Fall with back pain. COMPARISON STUDY: Prior CT scans of the thoracic spine, most recently dated 12/08/2016. TECHNIQUE: CT scan of the thoracic spine is performed from the lower cervical spine to the upper lumbar spine. Images are reviewed in the axial, sagittal, and coronal planes. IV contrast was not ministered for this examination. FINDINGS: The skeletal structures are osteopenic. There is no evidence of acute fracture or malalignment involving the thoracic spine. Chronic compression deformities of C7, T12, and L1 are unchanged. Nonunited fractures through the bodies of T8 and T9 are unchanged from prior studies. There is calcification of the anterior longitudinal ligament with flowing anterior osteophytes consistent with DISH. The transverse and spinous processes appear intact. Mild multilevel degenerative disc space narrowing is noted. No lytic or blastic lesions are seen. The paraspinous soft tissues are normal as imaged. There are healed right posterior rib fractures. No airspace consolidation or pleural effusion is identified. A calcified granuloma is noted in the right lower lobe. The heart appears enlarged and there is atherosclerotic calcification of the thoracic aorta. A left renal cyst is partially imaged. There is a small hiatal hernia. IMPRESSION: 1. There is no evidence of acute fracture or malalignment involving the thoracic spine. 2. Nonunited fractures through the bodies of T8 and T9 are unchanged from previous. 3. Chronic compression deformities as above. Electronically signed by: Bobby Eugene M.D. 12/30/2016 11:13 PM Dictated Date/Time: 12/30/2016 10:18 PM AP CHEST WITH RIGHT-SIDED RIB SERIES CLINICAL HISTORY: Fall. Chest wall pain. FINDINGS: An AP upright chest radiograph with 5 additional views may right-sided rib series is compared to study dated 12/08/2016. The heart is enlarged and there is atherosclerotic calcification of the thoracic aorta. The pulmonary vasculature is noncongested. Chronic interstitial thickening is similar to previous. The lungs and pleural spaces are clear. No pneumothorax is seen. The skeletal structures are osteopenic. There is no radiographic evidence of acute/distracted right-sided rib fracture as clinically queried. Degenerative change is noted throughout the thoracic spine. Nonunited T8 and T9 thoracic spinal fractures are similar to previous. Atherosclerotic calcification is noted in the right carotid bulb. IMPRESSION: 1. Cardiomegaly with no acute cardiopulmonary and bowel. 2. There is no radiographic evidence of acute/distracted right-sided rib fracture as clinically queried. 3. Nonunited T8 and T9 thoracic spinal fractures are again noted. These were better characterized on today's thoracic spinal CT. Electronically signed by: Bobby Eugene M.D. 12/30/2016 10:43 PM Dictated Date/Time: 12/30/2016 10:[address] SCAN OF LUMBAR SPINE WITHOUT IV CONTRAST CLINICAL HISTORY: Fall with back pain. COMPARISON STUDY: Prior CT scans of the lumbar spine, most recently dated 12/08/2016. TECHNIQUE: CT scan of lumbar spine is performed from the lower thoracic spine to the sacrum. Images are reviewed in the axial, sagittal, coronal planes. IV contrast was not administered for this examination. FINDINGS: The skeletal structures are osteopenic. There is no evidence of acute fracture or malalignment. Chronic compression deformities of T12 and L1 are similar to previous. Vertebral body height is otherwise maintained throughout the lumbar spine. 7 mm of anterolisthesis at L4-L5 is unchanged. Alignment is otherwise preserved. The transverse and spinous processes appear intact. There is no evidence of spondylolysis. No lytic or blastic lesions are seen. Only mild degenerative disc space narrowing is seen throughout the lumbar spine. There is no evidence of large disc herniation. There is likely acquired compromise of the central canal at L4-L5 secondary to anterolisthesis. The visualized sacrum and bony pelvis appear intact. Sclerotic change is noted in the sacroiliac joints. There is advanced atherosclerotic calcification MR ectasia of the abdominal aorta. There is fatty atrophy of the paraspinous musculature. A left renal cyst is unchanged. The partially imaged kidneys demonstrate cortical atrophy. Cholelithiasis is noted. 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 IMPRESSION: 1. There is no evidence of acute fracture or malalignment involving the lumbar spine. 2. Chronic compression deformities of T12 and L1 are similar to previous. 3. Osteopenia and spondylotic change as above. 4. Cholelithiasis. 5. Additional findings as detailed above. Electronically signed by: Bobby Eugene M.D. 12/30/2016 11:11 PM Dictated Date/Time: 12/30/2016 10:[address] SCAN OF THE BRAIN WITHOUT IV CONTRAST CLINICAL HISTORY: Fall. COMPARISON STUDY: CT of the brain dated 12/08/2016. TECHNIQUE: Unenhanced axial CT scan of the brain is performed from the vertex to the skull base. FINDINGS: Brain parenchyma: There are age-related involutional changes noting [id number] subcortical and periventricular microangiopathic change. There is no hemorrhage, mass effect, or evidence of acute territorial ischemia by CT criteria. Harris-white matter is preserved. No extra-axial fluid collection is seen. Ventricles, sulci, cisterns: Prominent secondary to involutional change. Intracranial vasculature: There is advanced atherosclerotic calcification of the cavernous carotid and vertebral arteries. Calvarium: The skeletal structures are osteopenic. There is no depressed calvarial fracture. Sinuses and mastoids: The visualized paranasal sinuses are clear. The mastoid air cells are well pneumatized. Orbits: The bony orbits are grossly intact. There is a left ocular lens implant. IMPRESSION: Age-related changes as above with no hemorrhage, mass effect, or evidence of acute territorial ischemia by CT criteria. No significant change from 12/08/2016. Electronically signed by: Bobby Eugene M.D. 12/30/2016 9:57 PM Dictated Date/Time: 12/30/2016 9:[address] SCAN OF THE CERVICAL SPINE CLINICAL HISTORY: Fall. COMPARISON STUDY: CT scan of the cervical spine dated 12/08/2016. TECHNIQUE: CT scan of the cervical spine is performed from the skull base to the upper thoracic spine. Images are reviewed in the axial, sagittal, and coronal planes. IV contrast was not administered for this examination. FINDINGS: Skeletal structures: The skeletal structures are osteopenic. There is no evidence of fracture or subluxation involving the cervical spine. There is a chronic compression deformity of C7. The C7 vertebral bodies sclerotic. Minimally retropulsed fragments are again noted at this level. Vertebral body height is otherwise maintained. Alignment is preserved. Anterior osteophytes are noted throughout. The odontoid process and lateral masses are intact. The atlantoaxial articulation is preserved noting productive degenerative change. The spinous processes appear intact. There is moderate to advanced multilevel cervical spondylosis. Uncovertebral and facet arthropathy contribute to neural foraminal stenosis at most levels. Intervertebral discs: Mild multilevel degenerative disc space narrowing is noted. Central canal: Posterior disc osteophyte complexes at C4-C5, C5-C6, and C6-C7 likely contribute to mild acquired compromise of the central canal. Soft tissues: The prevertebral and paraspinous soft tissues are within normal limits. There is atherosclerotic calcification of the carotid bulbs. Calvarium: The visualized calvarium at the skull base appears intact. Brain parenchyma: Partially visualized brain parenchyma the skull base is within normal limits noting age-related involutional change. Sinuses and mastoids: The visualized paranasal sinuses are clear. The mastoid air cells are well pneumatized. Lung apices: Clear as visualized. IMPRESSION: 1. There is no evidence of fracture or subluxation involving the cervical spine. 2. Osteopenia, a chronic compression deformity of C7, and spondylotic change as above. Electronically signed by: Bobby Eugene M.D. 12/30/2016 10:07 PM Dictated Date/Time: 12/30/2016 9:57 PM SINGLE VIEW PELVIS; 2 VIEWS RIGHT HIP CLINICAL HISTORY: Fall with right hip pain. FINDINGS: An AP view of the pelvis with AP and frog-leg views of the right hip are compared to pelvic radiograph dated 01/04/2016. The examination is degraded by large body habitus. The skeletal structures are osteopenic. There is no radiographic evidence of fracture involving the hips or bony pelvis. Mild to moderate arthritic change is seen in both hips. Lumbosacral spondylosis is partially imaged. Sclerotic change is identified in the sacroiliac joints and pubic symphysis. The overlying soft tissues are within normal limits. Atherosclerotic calcification is observed in the femoral arteries. There is a nonobstructed abdominal bowel gas pattern. IMPRESSION: 1. There is no radiographic evidence of fracture in the hips or bony pelvis. 2. Osteopenia and degenerative change as above. Electronically signed by: Bobby Eugene M.D. 12/30/2016 10:46 PM Dictated Date/Time: 12/30/2016 10:44 PM Laboratory Results 12/30/16 21:18 Red Blood Count 3.82, Mean Corpuscular Volume 83.2, Mean Corpuscular Hemoglobin 26.2, Mean Corpuscular Hemoglobin Concent 31.4, Mean Platelet Volume 8.8, Neutrophils (%) (Auto) 58.9, Lymphocytes (%) (Auto) 25.8, Monocytes (%) (Auto) 10.8, Eosinophils (%) (Auto) 3.8, Basophils (%) (Auto) 0.4, Neutrophils # (Auto ) 5.36, Lymphocytes # (Auto) 2.36, Monocytes # (Auto) 0.99, Eosinophils # (Auto ) 0.35, Basophils # (Auto) 0.04 12/30/16 21:18 Test 12/30/16 21:18 White Blood Count 9.13 K/uL (4.8-10.8) Red Blood Count 3.82 M/uL (4.2-5.4) Hemoglobin 10.0 g/dL (12.0-16.0) Hematocrit 31.8 % (37-47) Mean Corpuscular Volume 83.2 fL (80-100) Mean Corpuscular Hemoglobin 26.2 pg (25-34) Mean Corpuscular Hemoglobin Concent 31.4 g/dl (32-36) Platelet Count 293 K/uL (130-400) Mean Platelet Volume 8.8 fL (7.4-10.4) Neutrophils (%) (Auto) 58.9 % Lymphocytes (%) (Auto) 25.8 % Monocytes (%) (Auto) 10.8 % Eosinophils (%) (Auto) 3.8 % Basophils (%) (Auto) 0.4 % Neutrophils # (Auto) 5.36 K/uL (1.4-6.5) Lymphocytes # (Auto) 2.36 K/uL (1.2-3.4) Monocytes # (Auto) 0.99 K/uL (0.11-0.59) Eosinophils # (Auto) 0.35 K/uL (0-0.5) Basophils # (Auto) 0.04 K/uL (0-0.2) RDW Standard Deviation 59.3 fL (36.4-46.3) RDW Coefficient of Variation 19.4 % (11.5-14.5) Immature Granulocyte % (Auto) 0.3 % Immature Granulocyte # (Auto) 0.03 K/uL (0.00-0.02) Anion Gap 7.0 mmol/L (3-11) Est Creatinine Clear Calc Drug Dose 35.3 ml/min Estimated GFR () 44.9 Estimated GFR (Non- 38.7 BUN/Creatinine Ratio 17.4 (10-20) Calcium Level 8.9 mg/dl (8.5-10.1) Laboratory results as reviewed by me. Medications Administered Medications (Trade) Dose Ordered Sig/Phil Route Start Time Stop Time Status Last Admin Dose Admin Morphine Sulfate (MoRPHine SULFATE INJ) 4 mg NOW STAT IV 12/30/16 21:01 12/30/16 21:05 DC 12/30/16 21:16 4 MG Ondansetron HCl (Zofran Inj) 4 mg NOW STAT IV 12/30/16 21:01 12/30/16 21:05 DC 12/30/16 21:16 4 MG Morphine Sulfate (MoRPHine SULFATE INJ) 4 mg NOW STAT IV 12/30/16 22:45 12/30/16 22:46 DC 12/30/16 22:55 4 MG ED Course 2053: The patient was evaluated in room B11. A complete history and physical exam was performed. 2100: Zofran Inj 4 mg IV, Morphine Sulfate Inj 4 mg IV. 4: The patient is still having pain. She notes that the Morphine helped a little. 5: Morphine Sulfate Inj 4 mg IV. 0044: The patient is still having significant pain. She does not feel like she can go home. 0056: I spoke with Dr. Lainez of [facility] [place]. We discussed the patient and her results. The patient will be further evaluated by Dr. Lainez - [facility] [place]. 0059: The patient's blood sugar is 61. She was given orange juice. In the ambulance her blood sugar was 87 and she did eat today. Medical Decision this is an 81-year-old female presents with injuries after a fall.differential diagnosis includes vertebral compression fracture, disc herniation, radiculopathy, pelvic fracture, intracranial hemorrhage, concussion. I did perform a limited focused review of portions of the patient's old chart on the electronic medical record. The patient was hospitalized December 08 after a mechanical fall with severe upper back pain and multiple old thoracic vertebral fractures. I did evaluate the patient as noted above. The patient presents after falling. She stated that she was trying to sit down and missed the chair and fell onto her buttocks. She was able ambulate but then about an hour later developed pain rating down her right leg with some tingling. Her symptoms seem consistent with some type of radiculopathy. She is neurologically intact on my examination other than some chronic deficits. She does have chest wall tenderness on the right side as well. IV access was established. I did treat her with IV morphine and Zofran. I did order and personally review the patient' s x-rays as described above. There is no evidence of rib fractures or pelvic fracture. I did order and review the patient's blood work as noted in the electronic medical record. Her blood sugar is 61. The patient was given something to drink and eat. Her blood sugar reported by EMS was in the 80s. I did order a CT of the head, cervical, thoracic and lumbosacral spine. I did review the images myself as well as the radiology report as described above. There is no evidence of intracranial hemorrhage. No acute fractures. I did reassess the patient. She is still having pain and was given additional morphine IV. She does not feel she can go home as she is unable to walk. I therefore discussed case with the hospitalist and case filler. Consults Time Called: 53 Consulting Physician: Dr. Lainez - [facility] [place] Returned Call: [address] Lainez of [facility] [place]. We discussed the patient and her results. The patient will be further evaluated by Dr. Fatou TATUM. Impression Primary Impression: Intractable back pain Additional Impressions: Acute head injury Right-sided chest wall pain Hypoglycemia Scribe Attestation The scribe's documentation has been prepared under my direct and personally reviewed by me in its entirety. I confirm that the note above accurately reflects all work, treatment, procedures, and medical decision making performed by me. Departure Information Dispostion Being Evaluated By Hospitalist Referrals Mckinley Contreras M.D. (PCP) Problem Qualifiers Additional Impressions: Acute head injury Encounter type: initial encounter Qualified Codes: S09.90XA - Unspecified injury of head, initial encounter
--- NOTE | 2016-12-31 02:57 | History and Physical ---
History & Physical Date & Time of Service: Dec 31, 2016 at 02:57 Chief Complaint: Hypoglycemia Primary Care Physician: Mckinley Contreras M.D. History of Present Illness Source: patient 81-year-old female with a complicated past medical history significant for atrial fibrillation, diabetes, chronic kidney disease, depression, GERD, coronary artery disease, cerebrovascular disease, hypertension, osteoarthritis, rheumatoid arthritis, peripheral vascular disease, hyperparathyroidism, chronic right-sided weakness and numbness presented to the ER with complaints of worsening right-sided pain. She stated that she had felt dizzy while coming out of the bathroom and landed on her buttocks while trying to sit near her dining room table. She stated that she also hit her head onto the table during the fall but denied any loss of consciousness. She denied any chest pain, palpitations, diaphoresis, blurriness of vision prior to the fall. After the fall she had developed worsening pain on her right side with numbness along her entire right leg. She complains of pain along her right chest which is very tender to palpation. She stated that she had an appointment with one of her doctors today and she had missed her lunch. She complained of back pain especially on the right side but denied any bowel or bladder incontinence 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 (5) CEREBROVASC DISEASE NOS Status: Chronic (6) Chest pain Status: Resolved (7) CHRONIC KIDNEY DISEASE, STAGE V Status: Chronic (8) CVA (cerebral infarction) Status: Resolved (9) CYSTIC KIDNEY DISEASE, UNSPECIFIED Status: Chronic (10) Depression Status: Chronic (11) Diabetes Status: Chronic (12) ESOPHAGEAL REFLUX Status: Chronic (13) Heart disease Status: Chronic (14) HTN (hypertension) Status: Chronic (15) HYPERPARATHYROIDISM, UNSPECIFIED Status: Chronic (16) Osteoarthritis Status: Chronic (17) PANCREATIC DISEASE NEC Status: Chronic (18) PERIPH VASCULAR DIS NOS Status: Chronic (19) R sided numbness Status: Chronic (20) Rheumatoid arthritis Status: Chronic (21) Right sided weakness Status: Chronic (22) VASCULAR DEMENTIA, UNCOMPLICATED Status: Chronic (23) VITAMIN D DEFICIENCY NOS Status: Chronic (24) Wrist fracture Status: Resolved Surgical Problems: (1) Hx of coronary artery bypass surgery Status: Resolved Family History Heart disease Myocardial infarction Social History Smoking Status: Former Smoker Drug Use: none Marital Status: single Housing status: lives with family Occupational Status: retired Immunizations History of Influenza Vaccine: No History of Tetanus Vaccine?: utd History of Pneumococcal: Yes Pneumococcal Date: Sep 24, 2010 History of Hepatitis B Vaccine: No Multi-Drug Resistant Organisms History of MDRO: No Allergies Coded Allergies: Iodinated Diagnostic Agents (Verified Allergy, Severe, ANAPHYLAXIS, ) Labelle (Verified Allergy, Severe, RASH, HIVES, TROUBLE BREATHING, 12/30/16 ) Promethazine (Verified Allergy, Severe, HIVES, TROUBLE BREATHING, 12/30/16) Bupropion (Verified Allergy, Intermediate, RASH, 12/30/16) Diazepam (Verified Allergy, Intermediate, Rash, 12/30/16) Reported by PT. Erythromycin (Verified Allergy, Intermediate, RASH, 12/30/16) Iodine (Verified Allergy, Intermediate, RASH, HIVES, 12/30/16) Penicillins (Verified Allergy, Intermediate, RASH, 12/30/16) Phenytoin (Verified Allergy, Unknown, PT UNSURE, 12/30/16) Tamsulosin (Verified Adverse Reaction, Intermediate, DIZZINESS, 12/30/16) Home Medications Scheduled Alendronate Sodium (Fosamax), 70 MG PO WK Calcium Carbonate-Vitamin D (Oscal 500/200 D-3), 1 TAB PO AMPM Cholecalciferol (Vitamin D3), 1 TAB PO DAILY Dipyridamole/Aspirin (Aggrenox 25-200 mg), 1 CAP PO BID Docusate Sodium (Colace), 1 CAP PO BID Escitalopram (Lexapro), 10 MG PO QAM Furosemide (Lasix), 80 MG PO BID Isosorbide Mononitrate Ext Rel (Imdur Ext Rel), 90 MG PO QAM Lidocaine (Lidocaine), 1 PATCH TD QAM Meclizine Hcl (Meclizine Hcl), 1 TAB PO QAM Nitroglycerin (Nitrostat), 0.4 MG UT PRN Nortriptyline (Pamelor), 25 MG PO QPM Pantoprazole (Protonix), 40 MG PO QPM Potassium Ext Rel (Klor-Con), 20 MEQ PO QAM Prednisone (Prednisone), 5 MG PO DAILY Ranolazine (Ranexa), 1 TAB PO BID Simvastatin (Zocor), 40 MG PO HS Topiramate (Topamax), 200 MG PO BID Scheduled PRN Acetaminophen (Tylenol), 1,000 MG PO Q4 PRN for Pain Albuterol Hfa (Ventolin Hfa), 1-2 PUFFS INH Q4 PRN for Shortness of Breath Diphenhydramine Hcl (Benadryl Allergy), 50 MG PO QPM PRN for Sleep Ondansetron (Ondansetron Hcl), 4 MG IV Q6H PRN for Nausea Tramadol HCl (Tramadol HCl), 50 MG PO Q6H PRN for Pain Review of Systems Constitutional: No chills, No fever Eyes: No worsening of vision ENT: No hearing loss Respiratory: No cough, No dyspnea on exertion, No shortness of breath Cardiovascular: No chest pain, No palpitations Abdomen: No diarrhea, No nausea, No pain, No vomiting Musculoskeletal: + joint pain (right lower extremity) Genitourinary - Female: No dysuria Neurologic: + numbness/tingling (along the right lower extremity) Psychiatric: No depression symptoms Endocrine: No fatigue Hematologic / Lymphatic: No abnormal bleeding/bruising Physical Exam Vital Signs Date Time Temp Pulse Resp B/P Pulse Ox O2 Delivery O2 Flow Rate FiO2 12/31/16 02:06 99 18 114/69 98 12/31/16 02:01 99 18 114/69 98 Room Air 12/30/16 23:53 92 18 131/80 96 Room Air 12/30/16 21:59 90 18 138/93 98 Room Air 12/30/16 20:54 82 12/30/16 20:37 36.7 92 19 173/78 98 Room Air General Appearance: WD/WN, no apparent distress Head: normocephalic Eyes: normal inspection ENT: hearing grossly normal Neck: supple Respiratory/Chest: chest non-tender, lungs clear, normal breath sounds, no respiratory distress, no accessory muscle use, + pertinent finding (tenderness along the right-sided chest with no visible bruising) Cardiovascular: + tachycardia Abdomen/GI: normal bowel sounds, non tender, soft Back: normal inspection Extremities/Musculoskelatal: + pedal edema Neurologic/Psych: alert, normal mood/affect, oriented x 3 Skin: normal color Diagnostics Laboratory Results Results Past 24 Hours Test 12/30/16 21:18 12/31/16 01:11 12/31/16 01:31 12/31/16 01:59 Range/Units White Blood Count 9.13 4.8-10.8 K/uL Red Blood Count 3.82 4.2-5.4 M/uL Hemoglobin 10.0 12.0-16.0 g/dL Hematocrit 31.8 37-47 % Mean Corpuscular Volume 83.2 80-100 fL Mean Corpuscular Hemoglobin 26.2 25-34 pg Mean Corpuscular Hemoglobin Concent 31.4 32-36 g/dl Platelet Count 293 130-400 K/uL Mean Platelet Volume 8.8 7.4-10.4 fL Neutrophils (%) (Auto) 58.9 % Lymphocytes (%) (Auto) 25.8 % Monocytes (%) (Auto) 10.8 % Eosinophils (%) (Auto) 3.8 % Basophils (%) (Auto) 0.4 % Neutrophils # (Auto) 5.36 1.4-6.5 K/uL Lymphocytes # (Auto) 2.36 1.2-3.4 K/uL Monocytes # (Auto) 0.99 0.11-0.59 K/uL Eosinophils # (Auto) 0.35 0-0.5 K/uL Basophils # (Auto) 0.04 0-0.2 K/uL RDW Standard Deviation 59.3 36.4-46.3 fL RDW Coefficient of Variation 19.4 11.5-14.5 % Immature Granulocyte % (Auto) 0.3 % Immature Granulocyte # (Auto) 0.03 0.00-0.02 K/uL Sodium Level 142 136-145 mmol/L Potassium Level 3.5 3.5-5.1 mmol/L Chloride Level 108 98-107 mmol/L Carbon Dioxide Level 27 21-32 mmol/L Anion Gap 7.0 3-11 mmol/L Blood Urea Nitrogen 23 7-18 mg/dl Creatinine 1.30 0.60-1.20 mg/dl Est Creatinine Clear Calc Drug Dose 35.3 ml/min Estimated GFR () 44.9 Estimated GFR (Non- 38.7 BUN/Creatinine Ratio 17.4 10-20 Random Glucose 61 70-99 mg/dl Calcium Level 8.9 8.5-10.1 mg/dl Bedside Glucose 68 63 83 70-90 mg/dl Diagnostic Radiology [~ rep ct add3]] CT SCAN OF THE THORACIC SPINE WITHOUT IV CONTRAST CLINICAL HISTORY: Fall with back pain. COMPARISON STUDY: Prior CT scans of the thoracic spine, most recently dated 12/08/2016. TECHNIQUE: CT scan of the thoracic spine is performed from the lower cervical spine to the upper lumbar spine. Images are reviewed in the axial, sagittal, and coronal planes. IV contrast was not ministered for this examination. FINDINGS: The skeletal structures are osteopenic. There is no evidence of acute fracture or malalignment involving the thoracic spine. Chronic compression deformities of C7, T12, and L1 are unchanged. Nonunited fractures through the bodies of T8 and T9 are unchanged from prior studies. There is calcification of the anterior longitudinal ligament with flowing anterior osteophytes consistent with DISH. The transverse and spinous processes appear intact. Mild multilevel degenerative disc space narrowing is noted. No lytic or blastic lesions are seen. The paraspinous soft tissues are normal as imaged. There are healed right posterior rib fractures. No airspace consolidation or pleural effusion is identified. A calcified granuloma is noted in the right lower lobe. The heart appears enlarged and there is atherosclerotic calcification of the thoracic aorta. A left renal cyst is partially imaged. There is a small hiatal hernia. IMPRESSION: 1. There is no evidence of acute fracture or malalignment involving the thoracic spine. 2. Nonunited fractures through the bodies of T8 and T9 are unchanged from previous. 3. Chronic compression deformities as above. [~ rep ct add3]] AP CHEST WITH RIGHT-SIDED RIB SERIES CLINICAL HISTORY: Fall. Chest wall pain. FINDINGS: An AP upright chest radiograph with 5 additional views may right-sided rib series is compared to study dated 12/08/2016. The heart is enlarged and there is atherosclerotic calcification of the thoracic aorta. The pulmonary vasculature is noncongested. Chronic interstitial thickening is similar to previous. The lungs and pleural spaces are clear. No pneumothorax is seen. The skeletal structures are osteopenic. There is no radiographic evidence of acute/distracted right-sided rib fracture as clinically queried. Degenerative change is noted throughout the thoracic spine. Nonunited T8 and T9 thoracic spinal fractures are similar to previous. Atherosclerotic calcification is noted in the right carotid bulb. IMPRESSION: 1. Cardiomegaly with no acute cardiopulmonary and bowel. 2. There is no radiographic evidence of acute/distracted right-sided rib fracture as clinically queried. 3. Nonunited T8 and T9 thoracic spinal fractures are again noted. These were better characterized on today's thoracic spinal CT. CT SCAN OF LUMBAR SPINE WITHOUT IV CONTRAST CLINICAL HISTORY: Fall with back pain. COMPARISON STUDY: Prior CT scans of the lumbar spine, most recently dated 12/08/2016. TECHNIQUE: CT scan of lumbar spine is performed from the lower thoracic spine to the sacrum. Images are reviewed in the axial, sagittal, coronal planes. IV contrast was not administered for this examination. FINDINGS: The skeletal structures are osteopenic. There is no evidence of acute fracture or malalignment. Chronic compression deformities of T12 and L1 are similar to previous. Vertebral body height is otherwise maintained throughout the lumbar spine. 7 mm of anterolisthesis at L4-L5 is unchanged. Alignment is otherwise preserved. The transverse and spinous processes appear intact. There is no evidence of spondylolysis. No lytic or blastic lesions are seen. Only mild degenerative disc space narrowing is seen throughout the lumbar spine. There is no evidence of large disc herniation. There is likely acquired compromise of the central canal at L4-L5 secondary to anterolisthesis. The visualized sacrum and bony pelvis appear intact. Sclerotic change is noted in the sacroiliac joints. There is advanced atherosclerotic calcification MR ectasia of the abdominal aorta. There is fatty atrophy of the paraspinous musculature. A left renal cyst is unchanged. The partially imaged kidneys demonstrate cortical atrophy. Cholelithiasis is noted. 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 IMPRESSION: 1. There is no evidence of acute fracture or malalignment involving the lumbar spine. 2. Chronic compression deformities of T12 and L1 are similar to previous. 3. Osteopenia and spondylotic change as above. 4. Cholelithiasis. 5. Additional findings as detailed above. CT SCAN OF THE BRAIN WITHOUT IV CONTRAST CLINICAL HISTORY: Fall. COMPARISON STUDY: CT of the brain dated 12/08/2016. TECHNIQUE: Unenhanced axial CT scan of the brain is performed from the vertex to the skull base. FINDINGS: Brain parenchyma: There are age-related involutional changes noting [id number] subcortical and periventricular microangiopathic change. There is no hemorrhage, mass effect, or evidence of acute territorial ischemia by CT criteria. Harris-white matter is preserved. No extra-axial fluid collection is seen. Ventricles, sulci, cisterns: Prominent secondary to involutional change. Intracranial vasculature: There is advanced atherosclerotic calcification of the cavernous carotid and vertebral arteries. Calvarium: The skeletal structures are osteopenic. There is no depressed calvarial fracture. Sinuses and mastoids: The visualized paranasal sinuses are clear. The mastoid air cells are well pneumatized. Orbits: The bony orbits are grossly intact. There is a left ocular lens implant. IMPRESSION: Age-related changes as above with no hemorrhage, mass effect, or evidence of acute territorial ischemia by CT criteria. No significant change from 12/08/2016. [~ rep ct add3]] CT SCAN OF THE CERVICAL SPINE CLINICAL HISTORY: Fall. COMPARISON STUDY: CT scan of the cervical spine dated 12/08/2016. TECHNIQUE: CT scan of the cervical spine is performed from the skull base to the upper thoracic spine. Images are reviewed in the axial, sagittal, and coronal planes. IV contrast was not administered for this examination. FINDINGS: Skeletal structures: The skeletal structures are osteopenic. There is no evidence of fracture or subluxation involving the cervical spine. There is a chronic compression deformity of C7. The C7 vertebral bodies sclerotic. Minimally retropulsed fragments are again noted at this level. Vertebral body height is otherwise maintained. Alignment is preserved. Anterior osteophytes are noted throughout. The odontoid process and lateral masses are intact. The atlantoaxial articulation is preserved noting productive degenerative change. The spinous processes appear intact. There is moderate to advanced multilevel cervical spondylosis. Uncovertebral and facet arthropathy contribute to neural foraminal stenosis at most levels. Intervertebral discs: Mild multilevel degenerative disc space narrowing is noted. Central canal: Posterior disc osteophyte complexes at C4-C5, C5-C6, and C6-C7 likely contribute to mild acquired compromise of the central canal. Soft tissues: The prevertebral and paraspinous soft tissues are within normal limits. There is atherosclerotic calcification of the carotid bulbs. Calvarium: The visualized calvarium at the skull base appears intact. Brain parenchyma: Partially visualized brain parenchyma the skull base is within normal limits noting age-related involutional change. Sinuses and mastoids: The visualized paranasal sinuses are clear. The mastoid air cells are well pneumatized. Lung apices: Clear as visualized. IMPRESSION: 1. There is no evidence of fracture or subluxation involving the cervical spine. 2. Osteopenia, a chronic compression deformity of C7, and spondylotic change as above. [~ rep ct add3]] SINGLE VIEW PELVIS; 2 VIEWS RIGHT HIP CLINICAL HISTORY: Fall with right hip pain. FINDINGS: An AP view of the pelvis with AP and frog-leg views of the right hip are compared to pelvic radiograph dated 01/04/2016. The examination is degraded by large body habitus. The skeletal structures are osteopenic. There is no radiographic evidence of fracture involving the hips or bony pelvis. Mild to moderate arthritic change is seen in both hips. Lumbosacral spondylosis is partially imaged. Sclerotic change is identified in the sacroiliac joints and pubic symphysis. The overlying soft tissues are within normal limits. Atherosclerotic calcification is observed in the femoral arteries. There is a nonobstructed abdominal bowel gas pattern. IMPRESSION: 1. There is no radiographic evidence of fracture in the hips or bony pelvis. 2. Osteopenia and degenerative change as above. Impression Assessment and Plan 81-year-old female with a complicated past medical history significant for atrial fibrillation, diabetes, chronic kidney disease, depression, GERD, coronary artery disease, cerebrovascular disease, hypertension, osteoarthritis, rheumatoid arthritis, peripheral vascular disease, hyperparathyroidism, chronic right-sided weakness and numbness presented to the ER with complaints of worsening right-sided pain after she fell on her buttocks secondary to dizziness likely due to hypoglycemia .the patient stated that she had skipped her lunch today but had taken her insulin last night. Fall secondary to dizziness due to hypoglycemia: - Head CT: Negative for an acute process - Thoracic spine CT: 1. There is no evidence of acute fracture or malalignment involving the thoracic spine. 2. Nonunited fractures through the bodies of T8 and T9 are unchanged from previous. 3. Chronic compression deformities as above. - Rib x-ray: 1. Cardiomegaly with no acute cardiopulmonary and bowel. 2. There is no radiographic evidence of acute/distracted right -sided rib fracture as clinically queried. 3. Nonunited T8 and T9 thoracic spinal fractures are again noted. These were better characterized on today's thoracic spinal CT. - Lumbar spine CT:1 . There is no evidence of acute fracture or malalignment involving the lumbar spine. 2. Chronic compression deformities of T12 and L1 are similar to previous. 3. Osteopenia and spondylotic change as above. 4. Cholelithiasis. -Cervical spine CT: 1. There is no evidence of fracture or subluxation involving the cervical spine. 2. Osteopenia, a chronic compression deformity of C7, and spondylotic change as above. - Hip/pelvis x-ray: 1. There is no radiographic evidence of fracture in the hips or bony pelvis. 2. Osteopenia and degenerative change as above. - Pain control with tramadol 50 mg every 6 hours as needed, [place] every 6 hours as needed, morphine 2 mg IV every 2 hours as needed. - PT/OT Hypoglycemia: - On admission blood sugar was 61 She was given orange juice and her blood sugar later was 68-->63-->83 -Hold insulin for now -Hypoglycemic protocol Coronary artery disease - Continue Ranexa, Aggrenox Bilateral lower extremity swelling: - Lasix and potassium chloride Hypertension - Continue hydrochlorothiazide, Imdur Atrial fibrillation: - Continue diltiazem Hypercholesterolemia: -Continue simvastatin GERD: - Continue Protonix Peripheral neuropathy: - Continue topiramate Depression: Continue home meds Rheumatoid arthritis: Continue prednisone DVT prophylaxis: heparin subcutaneous DO NOT RESUSCITATE Disposition: Monitor hypoglycemia VTE Prophylaxis VTE Risk Assessment Done? Y/N: Yes Risk Level: Moderate Given or contraindicated: Unfractionated heparin SQ Resident Tracking Resident Involvement: Resident Care Provided Care Provided: Adult Hospital Medicine Assessment and Plan Attending Addendum: I have physically seen and examined this patient, have directed their medical care, have supervised the medical residents activities, and agree with the H&P as noted above, with the following changes: NONE
[2016-12-31] MEDS ORDERED: MoRPHine SULFATE 2 MG/ML CARP IV PRN (04:45)
[2016-12-31] MEDS: TRAMADOL HCL 50 MG TAB PO PRN ×3 (04:49→21:15)
[2016-12-31] MEDS ORDERED: IV FLUIDS COMPLETED PRN (06:45)
[2016-12-31] MEDS: HYDROCODONE/ACETAMOPHEN 5/325MG TAB PO PRN ×2 (07:11→16:42)
--- NOTE | 2016-12-31 07:55 | Family Medicine Progress Note ---
Progress Note Date of Service Dec 31, 2016. Subjective Pt evaluation today including: conversation w/ patient Patient's history regarding the fall is limited as she says that it happened so fast, she remembers feeling dizzy after walking back from the washroom, but she does not recall feeling SOB, nauseous, having palpitations or losing consciousness at the time. She knows she fell on her bottom, but is complaining of pain along the entire right side of the right side of her body. She was otherwise feeling well prior. She states she is compliant with her medication. Constitutional: + weakness, No chills, No fever Respiratory: No shortness of breath Cardiovascular: + chest pain (right sided) Abdomen: + pain (right sided), No nausea Musculoskeletal: No joint pain, No muscle pain Female : No dysuria Objective Vital Signs Date Time Temp Pulse Resp B/P Pulse Ox O2 Delivery O2 Flow Rate FiO2 12/31/16 07:39 36.5 84 20 114/70 100 2.0 12/31/16 04:44 36.6 90 20 108/56 99 Nasal Cannula 2.0 12/31/16 03:10 36.7 117 20 137/79 92 Room Air 12/31/16 02:06 99 18 114/69 98 12/31/16 02:01 99 18 114/69 98 Room Air 12/30/16 23:53 92 18 131/80 96 Room Air 12/30/16 21:59 90 18 138/93 98 Room Air 12/30/16 20:54 82 12/30/16 20:37 36.7 92 19 173/78 98 Room Air Physical Exam General Appearance: WD/WN, + mild distress Eyes: + pertinent finding (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 ) ENT: hearing grossly normal Neck: supple Respiratory/Chest: lungs clear, no respiratory distress, no accessory muscle use, + decreased breath sounds Cardiovascular: regular rate, rhythm Abdomen: normal bowel sounds, soft, + tenderness (right sided) Extremities: no pedal edema, no calf tenderness, + pertinent finding ( Decreased ROM in shoulder, pain on palpation of both R arm and R leg at both sof tissue and joints) Neurologic/Psychiatric: no motor/sensory deficits (Left sided weakness from previous CVA, 5/5 strength on R sided extremities), alert, normal mood/affect, oriented x 3, + facial droop (right side from previous CVA), + motor weakness ( on standing) Skin: normal color, warm/dry, no rash Laboratory Results Results Past 24 Hours Test 12/30/16 21:18 12/31/16 01:11 12/31/16 01:31 12/31/16 01:59 Range/Units White Blood Count 9.13 4.8-10.8 K/uL Red Blood Count 3.82 4.2-5.4 M/uL Hemoglobin 10.0 12.0-16.0 g/dL Hematocrit 31.8 37-47 % Mean Corpuscular Volume 83.2 80-100 fL Mean Corpuscular Hemoglobin 26.2 25-34 pg Mean Corpuscular Hemoglobin Concent 31.4 32-36 g/dl Platelet Count 293 130-400 K/uL Mean Platelet Volume 8.8 7.4-10.4 fL Neutrophils (%) (Auto) 58.9 % Lymphocytes (%) (Auto) 25.8 % Monocytes (%) (Auto) 10.8 % Eosinophils (%) (Auto) 3.8 % Basophils (%) (Auto) 0.4 % Neutrophils # (Auto) 5.36 1.4-6.5 K/uL Lymphocytes # (Auto) 2.36 1.2-3.4 K/uL Monocytes # (Auto) 0.99 0.11-0.59 K/uL Eosinophils # (Auto) 0.35 0-0.5 K/uL Basophils # (Auto) 0.04 0-0.2 K/uL RDW Standard Deviation 59.3 36.4-46.3 fL RDW Coefficient of Variation 19.4 11.5-14.5 % Immature Granulocyte % (Auto) 0.3 % Immature Granulocyte # (Auto) 0.03 0.00-0.02 K/uL Sodium Level 142 136-145 mmol/L Potassium Level 3.5 3.5-5.1 mmol/L Chloride Level 108 98-107 mmol/L Carbon Dioxide Level 27 21-32 mmol/L Anion Gap 7.0 3-11 mmol/L Blood Urea Nitrogen 23 7-18 mg/dl Creatinine 1.30 0.60-1.20 mg/dl Est Creatinine Clear Calc Drug Dose 35.3 ml/min Estimated GFR () 44.9 Estimated GFR (Non- 38.7 BUN/Creatinine Ratio 17.4 10-20 Random Glucose 61 70-99 mg/dl Calcium Level 8.9 8.5-10.1 mg/dl Bedside Glucose 68 63 83 70-90 mg/dl Test 12/31/16 03:16 12/31/16 11:14 12/31/16 11:45 12/31/16 16:19 Range/Units Bedside Glucose 119 133 104 70-90 mg/dl Estimated Average Glucose 126 mg/dl Hemoglobin A1c 6.0 4.5-5.6 % Test 12/31/16 20:12 Range/Units Bedside Glucose 92 70-90 mg/dl Assessment and Plan 81-year-old female with a complicated past medical history significant for atrial fibrillation, diabetes, chronic kidney disease, depression, GERD, coronary artery disease, cerebrovascular disease, hypertension, osteoarthritis, rheumatoid arthritis, peripheral vascular disease, hyperparathyroidism, chronic right-sided weakness and numbness presented to the ER with complaints of worsening right-sided pain after she fell on her buttocks secondary to dizziness likely due to hypoglycemia .the patient stated that she had skipped her lunch today but had taken her insulin last night. Fall - CT head, CT cervical/thoracic/lumbar spine, rib and hip xray all negative acute process. Pain likely secondary to soft tissue/MSK-related - Pain control with tramadol 50mg q6h PRN, Disney q6h PRN, IV morphine 2mg q2h PRN - PT/OT - EKG and echo ordered to r/o persistent arrhythmia or cardiac cause - Orthostatic BPs BID to assess for orthostatic hypotension - Carotid doppler to assess to r/o possible cause of TIA causing previous R- sided weakness prior to fall Hypoglycemia - blood sugar at admission was 61, improved with orange juice - Hold Lantus and prandin for now - Check HbA1c with plans to reassess medication need Coronary artery disease - Continue Ranexa, Aggrenox Bilateral lower extremity swelling - Lasix and potassium chloride Hypertension - Continue hydrochlorothiazide, Imdur Atrial fibrillation - Continue diltiazem Hypercholesterolemia -Continue simvastatin GERD - Continue Protonix Peripheral neuropathy - Continue topiramate Depression - Continue escitalopram Rheumatoid arthritis - Continue prednisone VTE prophylaxis - Heparin subcutaneous Code status: DO NOT RESUSCITATE Resident Physician Supervision Note: I interviewed and examined the patient. Discussed with Dr. Jennings and agree with findings and plan as documented in the note. Any exceptions or clarifications are listed here: None Documented By: Sukh Garcia feeling pain all over, but not worse. describes fall - unsteady then missed chair. doesn't appear to have had LOC vitals noted nad breathing unlabored no pallor or icterus. tender R shoulder and ribcage. films noted - no fx or dislocation fall - ddx being hypoglycemia > simple mechanical fall > orthostatic > other -ekg, carotids, echo, orthostatics -continue to follow sugars - check A1c, see below dm -check A1c - last was 6; on short acting sulfonylurea and skipped a meal but took med - likely as culprit series of events -follow sugars -likely will be able to reduce DM regimen pain -appearing mostly MSK from fall no fx/dislocation DVT proph -heparin SQ otherwise as above Continued [facility] stay due to: abnormal vital signs Discharge planning: home Resident Tracking Resident Involvement: Resident Care Provided Care Provided: Adult Hospital Medicine
[2016-12-31] MEDS: RANOLAZINE 500 MG ER TAB PO SCH ×2 (08:17→21:07)
[2016-12-31] MEDS: ISOSORBIDE MONONITRATE 60 MG TABCR PO SCH (08:17)
[2016-12-31] MEDS: ESCITALOPRAM OXALATE 10 MG TAB PO SCH (08:17)
[2016-12-31] MEDS: DIPYRIDAMOLE/ASPIRIN CAP PO SCH ×2 (08:17→21:09)
[2016-12-31] MEDS: POTASSIUM CHLORIDE 20 MEQ TABCR PO SCH (08:18)
[2016-12-31] MEDS: FUROSEMIDE 80 MG TAB PO SCH ×2 (08:19→16:41)
[2016-12-31] MEDS: CALCIUM 600MG + VIT D 400 IU TAB PO SCH ×2 (08:19→21:08)
[2016-12-31] MEDS: MECLIZINE HCL 12.5 MG TAB PO SCH (08:19)
[2016-12-31] MEDS: TOPIRAMATE 100 MG TAB PO SCH ×2 (08:20→21:07)
[2016-12-31] MEDS: DOCUSATE SODIUM 100 MG CAP PO SCH ×2 (08:20→21:07)
[2016-12-31] MEDS: HEPARIN SOD 5000 UNIT/0.5 ML CARP SQ SCH ×2 (08:21→21:16)
[2016-12-31 13:27] LABS: ESTIMATED AVERAGE GLUCOSE 126 mg/dl; HA1C FLAG Normal (Normal)
--- NOTE | 2016-12-31 13:54 | DIAGNOSTIC IMAGING REPORT ---
ULTRASOUND OF THE CAROTID ARTERIES CLINICAL HISTORY: Focal weakness. COMPARISON STUDY: 11/11/2015 TECHNIQUE: Real-time, grayscale, and color Doppler sonography of the carotid arteries was performed. Imaging reviewed in the transverse and longitudinal planes. NASCET criteria was utilized for stenosis calcification. FINDINGS: There is mild to moderate atherosclerotic plaque present . The peak systolic velocity within the right internal carotid artery is 139 cm/sec. The systolic velocity ratio of right internal to common carotid artery is 1.9. The peak systolic velocity within the left internal carotid artery is 112 cm/sec. The systolic velocity ratio left internal to common carotid artery is 1.5. Antegrade flow is seen in the vertebral arteries. The external carotid arteries are patent. IMPRESSION: 1. Study somewhat limited due to vessel tortuosity 2. Mild to moderate bilateral atheromatous plaque 3. Although velocity measurements indicate a 50-69% stenosis of the right internal carotid artery, I would favor the stenosis being less than 50%. CT angiography could be obtained in follow-up for more accurate assessment as deemed clinically indicated. Electronically signed by: Corky Miller M.D. 12/31/2016 1:52 PM Dictated Date/Time: 12/31/2016 1:44 PM
--- NOTE | 2016-12-31 15:46 | ECHOCARDIOGRAM REPORT ---
*NOTICE TO RECEIVING [employer] This information is strictly Confidential and protected under [place] law. [place] law prohibits you from making any further disclosure of this information unless further disclosure is expressly permitted by the written consent of the person to whom it pertains or is authorized by law. A general authorization for the release of medical or other information is not sufficient for this purpose. Hospital accepts no responsibility if the information is made available to any other person, INCLUDING THE PATIENT. Interpretation Summary * Name: Umberto HERNANDEZ Study Date: 12/31/2016 01:04 PM BP: 114/70 mmHg * Patient Location: [facility]\S\N284\S\2 HR: 88 * : 1935 (M/d/yyy) Gender: Female Height: 62 in * Age: 81 yrs Ethnicity: [place] Weight: 190 lb * Ordering Physician: Sukh Garcia * Referring Physician: Self, Referred * Performed By: Cielo Boggs [facility] * * Reason For Study: SYNCOPE * BSA: 1.9 m2 * -- Conclusions -- * 1. Normal left ventricular size and systolic function. EF 60-65%. No regional wall motion abnormalities. Mild concentric left ventricular hypertrophy. No significant diastolic dysfunction. * 2. Aortic valve sclerosis mild, without significant aortic valvular stenosis. * 3. Technically difficult study, enhanced with IV Definity. 4. Mildly elevated right ventricular systolic pressure; estimated RVSP 39 mmHg. * 5. Compared to prior study on 03/01/2016, estimated RVSP is now mildly elevated (similar to 10/29/2015 study). Procedure Details * A complete two-dimensional transthoracic echocardiogram was performed (2D, M-mode, Doppler and color flow Doppler). * The study was technically difficult. * A contrast injection of Definity was performed to improve assessment of LV function. * Contrast was injected into an intravenous site in the right arm. * One vial of Definity ultrasound contrast was diluted in normal saline to a total volume of 10 ml. A total of '1' ml of solution was administered during imaging. * Lot # [id number] of Definity utilized for procedure. * Expiration date 1 NOV 01. * The attending nurse who injected the contrast agent was MALENA MANRIQUE CPL, RN. Left Ventricle * Normal left ventricular size and systolic function. EF 60-65%. No regional wall motion abnormalities. Mild concentric left ventricular hypertrophy. No significant diastolic dysfunction. Right Ventricle * The right ventricle is normal in size and function. * The right ventricular systolic function is normal as assessed by tricuspid annular plane systolic excursion (TAPSE) (normal >1.5 cm). Atria * The left atrial size is normal. * Right atrial size is normal. * There is no evidence of atrial septal defect, but resolution does not allow assessment for a patent foramen ovale. Mitral Valve * There is mild mitral annular calcification. * The mitral valve leaflets appear thickened, but open well. * There is no mitral valve stenosis. * There is trace mitral regurgitation. Tricuspid Valve * The tricuspid valve is not well visualized, but is grossly normal. * There is no tricuspid stenosis. * There is trace tricuspid regurgitation. Aortic Valve * Aortic valve sclerosis mild, without significant aortic valvular stenosis. * No hemodynamically significant valvular aortic stenosis. * There is no significant aortic regurgitation. Pulmonic Valve * The pulmonic valve is not well visualized. * There is no pulmonic valvular stenosis. Great Vessels * The aortic root is normal size. * Normal pulmonary venous flow pattern. Pericardium/Pleural * There is no pericardial effusion. Great Vessels * Normal inferior vena cava size and collapsability with sniff indicates a normal right atrial pressure of 3 mmHg MMode 2D Measurements and Calculations IVSd 1.3 cm IVSs 1.9 cm LVIDd 5.0 cm LVIDs 3.5 cm LVPWd 1.3 cm LVPWs 1.6 cm IVS/LVPW 0.95 FS 29.9 % EDV(Teich) 120.8 ml ESV(Teich) 52.2 ml EF(Teich) 56.8 % EDV(cubed) 128.5 ml ESV(cubed) 44.3 ml EF(cubed) 65.6 % % IVS thick 50.7 % % LVPW thick 20.0 % LV mass(C)d 263.3 grams LV mass(C)dI 140.8 grams/m\S\2 LV mass(C)s 252.1 grams LV mass(C)sI 134.8 grams/m\S\2 SV(Teich) 68.6 ml SI(Teich) 36.7 ml/m\S\2 SV(cubed) 84.2 ml SI(cubed) 45.0 ml/m\S\2 Ao root diam 3.4 cm Ao root area 9.3 cm\S\2 ACS 1.5 cm LA dimension 4.2 cm LA/Ao 1.2 LVOT diam 2.1 cm LVOT area 3.5 cm\S\2 LVAd ap4 30.5 cm\S\2 LVLd ap4 7.8 cm EDV(MOD-sp4) 96.0 ml EDV(sp4-el) 101.0 ml LVAs ap4 16.5 cm\S\2 LVLs ap4 6.3 cm ESV(MOD-sp4) 35.7 ml ESV(sp4-el) 36.6 ml EF(MOD-sp4) 62.8 % EF(sp4-el) 63.7 % SV(MOD-sp4) 60.3 ml SI(MOD-sp4) 32.2 ml/m\S\2 SV(sp4-el) 64.4 ml SI(sp4-el) 34.4 ml/m\S\2 Doppler Measurements and Calculations MV E max toño 115.4 cm/sec MV A max toño 98.7 cm/sec MV E/A 1.2 MV P1/2t max toño 135.4 cm/sec MV P1/2t 59.3 msec MVA(P1/2t) 3.7 cm\S\2 MV dec slope 668.1 cm/sec\S\2 MV dec time 0.21 sec Ao V2 max 162.4 cm/sec Ao max PG 10.6 mmHg Ao max PG (full) 7.0 mmHg DONOVAN(V,A) 2.0 cm\S\2 DONOVAN(V,D) 2.0 cm\S\2 LV V1 max PG 3.5 mmHg LV V1 max 94.0 cm/sec TV E max toño 75.2 cm/sec PA V2 max 117.7 cm/sec PA max PG 5.5 mmHg TR max toño 300.1 cm/sec RVSP(TR) 39.0 mmHg RAP systole 3.0 mmHg
[2016-12-31] MEDS ORDERED: PANTOprazole SOD 40 MG TAB PO SCH (21:00)
[2016-12-31] MEDS ORDERED: NORTRIPTYLINE HCL 25 MG CAP PO SCH (21:00)
[2016-12-31] MEDS ORDERED: SIMVASTATIN 40 MG TAB PO SCH (21:00)
[2017-01-01] VITALS (8 sets, daily range): BP systolic 103–130; BP diastolic 62–73; PULSE 84–98; TEMP 36.6–37.2; O2SAT 94–98
[2017-01-01] MEDS: TRAMADOL HCL 50 MG TAB PO PRN (04:36)
[2017-01-01] MEDS: DOCUSATE SODIUM 100 MG CAP PO SCH (08:08)
[2017-01-01] MEDS: ESCITALOPRAM OXALATE 10 MG TAB PO SCH (08:09)
[2017-01-01] MEDS: CALCIUM 600MG + VIT D 400 IU TAB PO SCH (08:09)
[2017-01-01] MEDS: DIPYRIDAMOLE/ASPIRIN CAP PO SCH (08:09)
[2017-01-01] MEDS: FUROSEMIDE 80 MG TAB PO SCH (08:10)
[2017-01-01] MEDS: RANOLAZINE 500 MG ER TAB PO SCH (08:10)
[2017-01-01] MEDS: TOPIRAMATE 100 MG TAB PO SCH (08:11)
[2017-01-01] MEDS: POTASSIUM CHLORIDE 20 MEQ TABCR PO SCH (08:11)
[2017-01-01] MEDS: ISOSORBIDE MONONITRATE 60 MG TABCR PO SCH (08:11)
[2017-01-01] MEDS: MECLIZINE HCL 12.5 MG TAB PO SCH (08:12)
[2017-01-01] MEDS: HEPARIN SOD 5000 UNIT/0.5 ML CARP SQ SCH (08:14)
[2017-01-01 09:53] LABS: HEMATOCRIT 31.9 % (37-47); MEAN CELL VOLUME 83.5 fL (80-100); MEAN CORPUSCULAR HEMOGLOBIN 26.4 pg (25-34); MEAN CORPUSCULAR HGB CONC 31.7 g/dl (32-36); MEAN PLATELET VOLUME 8.5 fL (7.4-10.4); PLATELET COUNT 255 K/uL (130-400); RED BLOOD COUNT 3.82 M/uL (4.2-5.4); WHITE BLOOD COUNT 8.32 K/uL (4.8-10.8)
[2017-01-01 10:51] LABS: BUN/CREATININE RATIO 15.6 (10-20); CALCIUM 9.2 mg/dl (8.5-10.1); CREATININE 1.5 mg/dl (0.60-1.20); POTASSIUM 3.8 mmol/L (3.5-5.1)
[2017-01-01] MEDS ORDERED: LIDODERM (LIDOCAINE) PATCH 5% TD SCH (14:00)
[2017-01-01] MEDS ORDERED: ULT50X PO (15:05)
[2017-01-01] MEDS ORDERED: LDDP5 TD (15:05)
[2017-01-01] MEDS ORDERED: ISOS120T5 PO (15:05)
[2017-01-01] MEDS ORDERED: ZFRI4 IV (15:05)
--- NOTE | 2017-01-01 15:07 | Discharge Instructions ---
Discharge Instructions Date of Service Jan 01, 2017. Admission Reason for Admission: Hypoglycemia Discharge Discharge Diagnosis / Problem: fall due to hypoglycemia; pain and weakness from musculoligamentous pain Discharge Goals Goal(s): Decrease discomfort, Increase independence, Diagnostic testing, Therapeutic intervention Activity Recommendations Activity Level: Assistance Required Therapies: Physical Therapy, Occupational Therapy . Additional Information Patient informed of condition: Yes Advance Directives: Yes DNR: Yes Level of Care: Acute Rehab Communicable Disease: No Prognosis: Improving Instructions / Follow-Up Instructions / Follow-Up Fall -A1c 6, hypoglycemias early in stay - fall without LOC but with a vague, hard to describe loss of balance - making hypogylcemia most likely -----due to good sugar control in hospital and low A1c - meds have been stopped , suspect euglycemia predominantly with lifestyle management alone (would recommend this again when pt discharged from rehab as well) -----far less likely was orthostasis - had a small degree of orthostatic drop from sitting to standing, but asymptomatic. for now will reduce imdur to 90mg - - but if BP were to rise or any angina, would resume her prior dose of 120mg as the sugar was far more likely culprit chest pain/R sided pain ---appearing biomechanical / musculoligamentous - from fall. no fractures/ dislocations. does have R sided rib pain treated in hospital with gentle OMT and lidocaine patch ---for now tramadol being substituted for hydrocodone - and appearing relatively comfortable given the situation Current Hospital Diet Patient's current hospital diet: Diabetes Type 2 Diet, AHA Diet (Heart Healthy) Discharge Diet Recommended Diet: AHA Diet (Heart Healthy), Diabetes Type 2 Diet Pending Studies Studies pending at discharge: no Laboratory Results Hemoglobin A1c Test 12/31/16 11:45 Range/Units Estimated Average Glucose 126 mg/dl Hemoglobin A1c 6.0 H 4.5-5.6 % Medical Emergencies . Who to Call and When: Medical Emergencies: If at any time you feel your situation is an emergency, please call 911 immediately. . Non-Emergent Contact Non-Emergency issues call your: Primary Care Provider . . "Provider Documentation" section prepared by Sukh Garcia. . Core Measure Problem Core Measures: None
[2017-01-01] MEDS: HYDROCODONE/ACETAMOPHEN 5/325MG TAB PO PRN (15:41)
--- NOTE | 2017-01-01 16:37 | Discharge Summary ---
Discharge Summary Date of Service Jan 01, 2017. (Alka. Jennings MD) Discharge Summary Admission Date: Dec 31, 2016 at 01:32 Discharge Date: Jan 01, 2017 Discharge Disposition: Rehab Principal Diagnosis: Fall likely secondary to hypoglycemia, musculoskeletal pain Problems/Secondary Diagnoses: (1) Blind right eye Status: Chronic (2) Depression Status: Chronic Immunizations: Have You Had Influenza Vaccine: No History of Tetanus Vaccine?: utd History of Pneumococcal: Yes Pneumococcal Date: Sep 24, 2010 History of Hepatitis B Vaccine: No (Alka. Jennings MD) Principal Diagnosis: hypoglycemia (Sukh Garcia D.O.) Medication Reconciliation New Medications: Lidocaine (Lidocaine) 1 Patch Tdsy 1 PATCH TD QAM for 14 Days Ondansetron (Ondansetron Hcl) 2 Mg/Ml Inj 4 MG IV Q6H PRN for Nausea for 5 Days, #15 Tramadol HCl (Tramadol HCl) 50 Mg Tab 50 MG PO Q6H PRN for Pain for 14 Days, #56 TAB Changed Medications: Isosorbide Mononitrate Ext Rel (Imdur Ext Rel) 120 Mg Ertab 90 MG PO QAM for 30 Days, #21 TAB (Changed from: 120 MG) Continued Medications: Acetaminophen (Tylenol) 500 Mg Tab 1000 MG PO Q4 PRN for Pain, TAB Albuterol Hfa (Ventolin Hfa) 200 Puffs/11021 Mcg Aers 1-2 PUFFS INH Q4 PRN for Shortness of Breath, #1 INHALER Alendronate Sodium (Fosamax) 70 Mg Tab 70 MG PO WK, #4 TAKE ON SATURDAYS. TAKE 30 MIN PRIOR TO FOOD/OTHER MEDS. REMAIN UPRIGHT FOR AT LEAST 30 MINS. Calcium Carbonate-Vitamin D (Oscal 500/200 D-3) 1 Tab Tab 1 TAB PO AMPM TAKE WITH BREAKFAST & SUPPER Cholecalciferol (Vitamin D3) 1,000 Unit Tab 1 TAB PO DAILY for 90 Days, #90 TAB 3 Refills Diphenhydramine Hcl (Benadryl Allergy) 25 Mg Cap 50 MG PO QPM PRN for Sleep for 30 Days, #30 CAP 2 25MG CAPS Dipyridamole/Aspirin (Aggrenox 25-200 mg) 1 Cap Cap 1 CAP PO BID for 30 Days, #60 CAP 5 Refills Docusate Sodium (Colace) 100 Mg Cap 1 CAP PO BID for 15 Days, #30 CAP Escitalopram (Lexapro) 10 Mg Tab 10 MG PO QAM, TAB Furosemide (Lasix) 80 Mg Tab 80 MG PO BID, TAB Meclizine Hcl (Meclizine Hcl) 25 Mg Tab 1 TAB PO QAM for 30 Days, #30 TAB Nitroglycerin (Nitrostat) 0.4 Mg Tab 0.4 MG UT PRN, BTL PRN EVERY 5 MINUTES X3 FOR CHEST PAIN Nortriptyline (Pamelor) 25 Mg Cap 25 MG PO QPM, CAP Pantoprazole (Protonix) 40 Mg Tab 40 MG PO QPM, #30 TAB Potassium Ext Rel (Klor-Con) 20 Meq Tabcr 20 MEQ PO QAM, TAB Prednisone (Prednisone) 5 Mg Tab 5 MG PO DAILY, TAB Ranolazine (Ranexa) 1,000 Mg Tab 1 TAB PO BID for 90 Days, #180 TAB 3 Refills Simvastatin (Zocor) 40 Mg Tab 40 MG PO HS, TAB Topiramate (Topamax) 200 Mg Tab 200 MG PO BID, TAB Discontinued Medications: Insulin Glargine (Lantus Solostar) 100 Unit/Ml Inj 45 UNITS SC QPM, PEN Repaglinide (Prandin) 2 Mg Tab 2 MG PO AC, TAB Discharge Exam Patient generally well, she still has significant pain on her right anterior ribs. She says the medication dulls it, but does not completely resolve it. She felt she did well with physiotherapy yesterday, she is motivated to recover her strength. She is otherwise eating and sleeping well. Review of Systems: Constitutional: No chills, No fever Respiratory: + shortness of breath, No cough, No sputum Cardiovascular: + chest pain, No edema, No orthopnea, No palpitations Abdomen: No constipation, No diarrhea, No nausea, No pain, No vomiting Musculoskeletal: + joint pain, + muscle pain Genitourinary - Female: No dysuria Neurologic: + balance problems, + weakness (r sided from previous CVA), No numbness/tingling Physical Exam: General Appearance: WD/WN, + mild distress Eyes: + pertinent finding (bilateral eye deviation to the right from previous CVA) ENT: hearing grossly normal Neck: supple Respiratory/Chest: lungs clear, no respiratory distress, no accessory muscle use, + pertinent finding (shallow breathing secondary to discomfort) Cardiovascular: regular rate, rhythm, no murmur Abdomen / GI: normal bowel sounds, soft, + tenderness (right sided near ribs ) Extremities: no calf tenderness, normal capillary refill, no pedal edema Neurologic/Psychiatric: alert, normal mood/affect, oriented x 3, + facial droop, + motor weakness (left sided) Skin: normal color, warm/dry, no rash (Alka. Jennings MD) Hospital Course 81-year-old female with afib, DM, CKD, depression, GERD, CAD, CVD, HTN, osteoarthritis, rheumatoid arthritis, PVD, hyperparathyroidism, chronic right- sided weakness and numbness admitted with hypoglycemia and worsening right- sided pain after fall. Fall - CT head, CT cervical/thoracic/lumbar spine, rib and hip xray all negative acute process. EKG negative for persistent arrhythmia, echo shows good systolic and diastolic function and mild aortic sclerosis. Carotid Doppler showed moderate stenosis. Pain likely secondary to soft tissue/MSK-related. - Pain management with tramadol 50mg q6h PRN, and lidocaine patch Hypoglycemia - blood sugar at admission was 61, improved with orange juice. HbA1c 6.0, discontinued home meds, Lantus and Prandin - Advised for lifestyle management of DM with well balanced meals with low carbs and decreased sugars Orthostatic hypotension - mild degree evident when transitioning from sitting to standing, although patient was asymptomatic - Reduced Imdur from 120mg to 90mg - If BP were to rise or if there are any symptoms of angina, would resume prior dose of 120mg Coronary artery disease - Continue Ranexa, Aggrenox Bilateral lower extremity swelling - Lasix and potassium chloride Hypertension - Continue hydrochlorothiazide, Imdur Atrial fibrillation - Continue diltiazem Hypercholesterolemia -Continue simvastatin GERD - Continue Protonix Peripheral neuropathy - Continue topiramate Depression - Continue escitalopram Rheumatoid arthritis - Continue prednisone Code status: DO NOT RESUSCITATE Total Time Spent: Less than 30 minutes This includes examination of the patient, discharge planning, medication reconciliation, and communication with other providers. (Alka. Jennings MD) Resident Physician Supervision Note: I interviewed and examined the patient. Discussed with Dr. Jennings and agree with findings and plan as documented in the note. Any exceptions or clarifications are listed here: None Documented By: Sukh Garcia feeling better overall - sugars better. had sl orthostatic drop in BP but didn' t feel it. R sided chest pain reproducible to palp. vitals noted, nad breathing unlabored no pallor or icterus. ost/msk - R sided lower ribs (~rib 9-10) tender with high tone surrounding soft tissue - balanced ligamentous tension - improved. pt tolerated well fall - appearing almost certainly due to hypoglycemia. w A1c 6 and sugars well controlled just on less carb dense foods - dc meds for now and follow slight orthostatic drop in BP - reduce imdur to 90 and follow R sided pain - biomechanical from fall R sided rib pain/rib somatic dysfunction - OMT as above, lidocaine patch stable for rehab Total Time Spent: Less than 30 minutes (Sukh Garcia, D.O.) Discharge Instructions Please refer to the electronic Patient Visit Report (Discharge Instructions) for additional information. (Alka. Jennings MD)
[2017-01-03] MEDS ORDERED: ALENDRONATE SODIUM 70 MG TAB PO SCH (06:30)
[2017-04-07] MEDS ORDERED: NF656 PO (15:43)
[2017-04-07] MEDS ORDERED: OXYC-57 PO (15:43)
[2017-04-07] MEDS ORDERED: MCRK20 PO (15:43)
[2017-04-19] MEDS ORDERED: ASPEC81 PO (15:04)
[2017-04-19] MEDS ORDERED: DFL100 PO (15:04)
[2017-04-19] MEDS ORDERED: KFL500 PO (15:04)
[2017-07-02] MEDS ORDERED: LPR25 PO (13:18)
[2017-07-02] MEDS ORDERED: APIX1TAB3 PO (13:18)
== END 2017-01-01 16:10 ==
LOC: ENRESERVDT → ENRESERVTM → C.EDB 20:23 → C.MED 12-31 01:32
PROVIDERS: ADMIT Family Medicine; ATTEND Family Medicine
DX: M79.1 Myalgia (principal); E11.649 Type 2 diabetes mellitus with hypoglycemia without coma; W19.XXXA Unspecified fall, initial encounter; H54.41 Blindness, right eye, normal vision left eye; F32.9 Major depressive disorder, single episode, unspecified; I48.2 Chronic atrial fibrillation; N18.5 Chronic kidney disease, stage 5; I12.0 Hypertensive chronic kidney disease with stage 5 chronic kidney disease or end stage renal disease; K21.9 Gastro-esophageal reflux disease without esophagitis; M19.90 Unspecified osteoarthritis, unspecified site; I73.9 Peripheral vascular disease, unspecified; M06.9 Rheumatoid arthritis, unspecified; E21.3 Hyperparathyroidism, unspecified; I25.10 Atherosclerotic heart disease of native coronary artery without angina pectoris; I95.1 Orthostatic hypotension; E78.00 Pure hypercholesterolemia, unspecified; G62.9 Polyneuropathy, unspecified; F01.50 Vascular dementia, unspecified severity, without behavioral disturbance, psychotic disturbance, mood disturbance, and anxiety; E55.9 Vitamin D deficiency, unspecified; J45.909 Unspecified asthma, uncomplicated; R20.0 Anesthesia of skin; Z66 Do not resuscitate; G89.29 Other chronic pain; Z79.82 Long term (current) use of aspirin; Z95.1 Presence of aortocoronary bypass graft; Z87.891 Personal history of nicotine dependence; Z87.440 Personal history of urinary (tract) infections; Z82.49 Family history of ischemic heart disease and other diseases of the circulatory system

== ENCOUNTER 2017-01-13 01:29 | Emergency (ER) | payer OTHER ==
[~2017-01-13] VITALS: Ht 157.5 cm; Wt 87.0 kg
[~2017-01-13 01:29] MED LIST changes: +AGG PO; -ARIP2TAB3 PO; +CHOL1000 PO; -CITA20TA4 PO; -CLB/200 PO; -CLOP1TAB15 PO; -DILT40TA2 PO; +FURO80TA63 PO; -INDSR/60 PO; -INSDGIPEN SC; +ISOS120T5 PO; -ISOS60TA25 PO; +LDDP5 TD; -MCLIN; +MECL1TAB42 PO; -NMN10 PO; +NORT25CA PO; -NVLGI/PEN SC; -POLY335019 PO; +POTA20TA16 PO; -PRLSR20 PO; +RANO1000 PO; -RANO500T PO; -SENN-61 PO; -VITA1TAB12; -VTMD1000 PO; +ZFRI4 IV; -cipro
[2017-01-13 01:37] VITALS: TEMP 37.2; Ht 157.5 cm; Wt 87.0 kg
[2017-01-13] MEDS ORDERED: ACETAMINOPHEN 500 MG TAB PO STA (01:49)
[2017-01-13] MEDS ORDERED: ISOS60TA25 PO (02:40)
[2017-01-13] MEDS ORDERED: lidocaine patch TD (02:43)
[2017-01-13] MEDS ORDERED: TRAM-10 PO (02:50)
[2017-01-13] MEDS ORDERED: INSDGIPEN SC (02:53)
--- NOTE | 2017-01-13 03:58 | EMERGENCY ROOM VISIT NOTE ---
History First contact with patient: 01:41 Chief Complaint: FALL Stated Complaint: FALL History of Present Illness The patient is a 81 year old female who presents to the Emergency Room for evaluation of a fall. The patient states she is currently at [facility] for a fracture of the right foot. She states that she was walking back from the bathroom today when she lost footing and fell onto the right forearm, and also struck the right head off the floor. She reports a headache and pain in the right fifth finger and right wrist. She rates her overall discomfort a 4/10. She takes Tylenol for pain but has not taken any tonight. She denies any loss of consciousness, nausea, vomiting, numbness, weakness, blurred vision or slurred speech. Review of Systems A complete 6 point review of systems was reviewed with the patient with pertinent positives and negatives as per history of present illness. All else were negative. Past Medical/Surgical History Medical Problems: (1) Acetaminophen toxicity (2) Adrenal insufficiency (3) Asthma (4) Asthmatic bronchitis (5) ATRIAL FIBRILLATION (6) Blind right eye (7) Blindness of right eye (8) Borderline personlity traits (9) CEREBRAL THROMBOSIS W CEREBRAL INFARCTION (10) CEREBROVASC DISEASE NOS (11) Chest pain (12) CHRONIC KIDNEY DISEASE, STAGE V (13) Chronic pain (14) CVA (cerebral infarction) (15) CYSTIC KIDNEY DISEASE, UNSPECIFIED (16) Depression (17) Depression (18) Diabetes (19) Discharge planning issues (20) Elevated troponin (21) ESOPHAGEAL REFLUX (22) Fracture of thoracic spine (23) Heart disease (24) HTN (hypertension) (25) Hyperlipidemia (26) HYPERPARATHYROIDISM, UNSPECIFIED (27) Hypoglycemia (28) Intentional self-harm (29) Leg weakness, bilateral (30) Leukocytosis (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 (32) Osteoarthritis (33) PANCREATIC DISEASE NEC (34) Past Psychotropic Medications (35) PERIPH VASCULAR DIS NOS (36) Precordial chest pain (37) R sided numbness (38) Rheumatoid arthritis (39) Right sided weakness (40) Suicide attempt by acetaminophen overdose (41) Thoracic spine fracture (42) TIA (transient ischemic attack) (43) UTI (urinary tract infection) (44) VASCULAR DEMENTIA, UNCOMPLICATED (45) VERTIGO (46) VITAMIN D DEFICIENCY NOS (47) Wrist fracture Surgical Problems: (1) Hx of coronary artery bypass surgery Family History Heart disease Myocardial infarction Social History Smoking Status: Never Smoker Alcohol Use: none Drug Use: none Marital Status: single Housing Status: lives alone Occupation Status: retired Current/Historical Medications Scheduled Alendronate Sodium (Fosamax), 70 MG PO WK Calcium Carbonate-Vitamin D (Oscal 500/200 D-3), 1 TAB PO AMPM Cholecalciferol (Vitamin D3), 1 TAB PO DAILY Dipyridamole/Aspirin (Aggrenox 25-200 mg), 1 CAP PO BID Docusate Sodium (Colace), 1 CAP PO BID Escitalopram (Lexapro), 10 MG PO QAM Furosemide (Lasix), 80 MG PO BID Insulin Glargine (Lantus Solostar), 45 SC QPM Isosorbide Mononitrate Ext Rel (Imdur Ext Rel), 90 MG PO QAM Meclizine Hcl (Meclizine Hcl), 1 TAB PO BID Nitroglycerin (Nitrostat), 0.4 MG UT PRN Nortriptyline (Pamelor), 25 MG PO QPM Pantoprazole (Protonix), 40 MG PO QPM Potassium Ext Rel (Klor-Con), 20 MEQ PO QAM Prednisone (Prednisone), 5 MG PO DAILY Ranolazine (Ranexa), 1 TAB PO BID Simvastatin (Zocor), 40 MG PO HS Topiramate (Topamax), 200 MG PO BID [lidocaine patch], 1 PATCH TD QAM Scheduled PRN Acetaminophen (Tylenol), 1,000 MG PO Q4 PRN for Pain Albuterol Hfa (Ventolin Hfa), 1-2 PUFFS INH Q4 PRN for Shortness of Breath Diphenhydramine Hcl (Benadryl Allergy), 50 MG PO QPM PRN for Sleep Tramadol (Ultram), 50 MG PO Q6 PRN for Pain Allergies Coded Allergies: Iodinated Diagnostic Agents (Verified Allergy, Severe, ANAPHYLAXIS, 01/13/17 ) [place] (Verified Allergy, Severe, RASH, HIVES, TROUBLE BREATHING, 01/13/17) Promethazine (Verified Allergy, Severe, HIVES, TROUBLE BREATHING, 01/13/17) Bupropion (Verified Allergy, Intermediate, RASH, 01/13/17) Diazepam (Verified Allergy, Intermediate, Rash, 01/13/17) Reported by PT. Erythromycin (Verified Allergy, Intermediate, RASH, 01/13/17) Iodine (Verified Allergy, Intermediate, RASH, HIVES, 01/13/17) Penicillins (Verified Allergy, Intermediate, RASH, 01/13/17) Phenytoin (Verified Allergy, Unknown, PT UNSURE, 01/13/17) Tamsulosin (Verified Adverse Reaction, Intermediate, DIZZINESS, 01/13/17) Physical Exam Vital Signs Date Time Temp Pulse Resp B/P Pulse Ox O2 Delivery O2 Flow Rate FiO2 01/13/17 04:32 76 16 144/61 98 Room Air 01/13/17 02:33 94 18 154/71 98 Room Air 01/13/17 01:37 37.2 97 18 144/76 94 Room Air Physical Exam VITALS: Vitals are noted on the nurse's note and reviewed by myself. Vital signs stable. GENERAL: This is an 81-year-old female, in no acute distress, nondiaphoretic, well-developed well-nourished. HEAD: Normocephalic atraumatic. There is a right frontal hematoma. EARS: External auditory canals clear, tympanic membranes pearly carmona without erythema or effusion bilaterally. No hemotympanum. EYES: Pupils equal round and reactive to light and accommodation. Extraocular movements intact. MOUTH: Mucous membranes moist. NECK: Supple without nuchal rigidity. Cervical spine nontender. HEART: Regular rate and rhythm without murmurs gallops or rubs. LUNGS: Clear to auscultation bilaterally without wheezes, rales or rhonchi. MUSCULOSKELETAL: Tenderness to palpation of the right fifth finger and fifth metacarpal. There is mild tenderness to palpation over the dorsal aspect of the wrist. No snuffbox tenderness. Capillary refill within two seconds. Full range of motion of the fingers or wrist. Radial pulses 2+. NEURO: Patient was alert and oriented to person place and time. Normal sensation to light and sharp touch. Medical Decision & Procedures ER Provider Diagnostic Interpretation: CT HEAD: No intracranial hemorrhage, skull fracture, or other acute intracranial abnormality. Small right frontal scalp/forehead hematoma. Atrophy and chronic small ischemic vessel. Radiologist: Idalia Arias MD RIGHT WRIST X-RAY: Possible ulnar styloid fracture. No other acute fractures or dislocations. RIGHT HAND X-RAY: Nondisplaced spiral fracture of the right fifth metacarpal. Otherwise no fractures or dislocations. Medications Administered Medications (Trade) Dose Ordered Sig/Phil Route Start Time Stop Time Status Last Admin Dose Admin Acetaminophen (Tylenol Tab) 1,000 mg NOW STAT PO 01/13/17 01:49 01/13/17 01:53 DC 01/13/17 01:49 1,000 MG Acetaminophen/ Hydrocodone Bitart ([place] 5/325 Tab) 1 tab NOW STAT PO 01/13/17 04:20 01/13/17 04:21 DC 01/13/17 04:28 1 TAB Medical Decision Differential diagnosis includes intracranial hemorrhage, fracture, contusions, among others. The patient was evaluated as above. Imaging studies were performed and reviewed by myself and my attending as above. CT of the head was unremarkable. X-rays did show a fracture of the fifth metacarpal. The patient was placed in an Ortho-Glass ulnar gutter splint and arm sling. She was discharged back to [facility]. She was given 1 g Tylenol and 1 tablet [place] while in the emergency department for pain. She verbalized understanding of my assessment and treatment plan and was discharged in good condition. The patient was independently evaluated by Dr. Gregory, ED attending physician , who agreed with my assessment and treatment plan. Impression Primary Impression: Fracture of fifth metacarpal bone of right hand Departure Information Dispostion Home / Self-Care Condition GOOD Referrals Mckinley Contreras M.D. (PCP) Bryan Ramirez M.D. Patient Instructions My [facility] Additional Instructions Follow-up with Dr. Ramirez this week. Continue Tylenol as needed for pain. Return to the emergency department with any numbness/weakness of your hand, worsening or new/concerning symptoms. Problem Qualifiers Primary Impression: Fracture of fifth metacarpal bone of right hand Encounter type: initial encounter Fracture type: closed Metacarpal location : shaft
--- NOTE | 2017-01-13 04:00 | EMERGENCY ROOM VISIT NOTE ---
ED Visit Note First contact with patient: 01:41 I have personally evaluated and examined this patient. I agree with assessment and plan of Marielos Willis PA-C.
[2017-01-13] MEDS ORDERED: NURSING VERBAL MED ORDER ONE (04:15)
[2017-01-13] MEDS ORDERED: HYDROCODONE/ACETAMOPHEN 5/325MG TAB PO STA (04:20)
--- NOTE | 2017-01-13 06:29 | DIAGNOSTIC IMAGING REPORT ---
RIGHT HAND MIN 3 VIEWS ROUTINE CLINICAL HISTORY: Right hand pain status post trauma COMPARISON: None. DISCUSSION: There is oblique fracture involving the proximal to mid fifth metacarpal. There are multilevel degenerative changes present. The bones are osteopenic. There are no dislocations. IMPRESSION: 1. Acute oblique fracture involving the fifth metacarpal 2. Osteopenia and moderate degenerative change Electronically signed by: Corky Miller M.D. 01/13/2017 6:27 AM Dictated Date/Time: 01/13/2017 6:25 AM
--- NOTE | 2017-01-13 06:45 | DIAGNOSTIC IMAGING REPORT ---
HEAD CT NONCONTRAST CT DOSE: 614.27 mGy.cm HISTORY: Trauma head injury TECHNIQUE: Multiaxial CT images of the head were performed without the use of intravenous contrast. Comparison: 12/30/2016 Findings: The paranasal sinuses and mastoid air cells are clear. The calvarium and skull base are intact. The ventricles and sulci are within normal limits. There is no mass, hematoma, midline shift, or acute infarct. Chronic small vessel and age-related change. Impression: Chronic change. No acute intracranial abnormality. Electronically signed by: Ashwin Handy M.D. 01/13/2017 6:44 AM Dictated Date/Time: 01/13/2017 6:43 AM
--- NOTE | 2017-01-13 06:53 | DIAGNOSTIC IMAGING REPORT ---
RIGHT WRIST W/NAVICULAR MIN 3 VIEWS CLINICAL HISTORY: Right wrist pain status post trauma COMPARISON: None. DISCUSSION: There are moderate osteoarthritic changes, most pronounced the level the first carpal metacarpal joint. There is an oblique fracture involving the fifth metacarpal. There are no dislocations. There is small soft tissue calcification located volar to the proximal carpal row. There is a small particular calcification located dorsal to the distal radius. IMPRESSION: Acute fracture involving the fifth metacarpal. Electronically signed by: Corky Miller M.D. 01/13/2017 6:51 AM Dictated Date/Time: 01/13/2017 6:50 AM
[2017-01-13 07:49] VITALS: BP 139/78; PULSE 76; O2SAT 94
[2017-04-07] MEDS ORDERED: MCRK20 PO (15:43)
[2017-04-07] MEDS ORDERED: NF656 PO (15:43)
[2017-04-07] MEDS ORDERED: OXYC-57 PO (15:43)
[2017-04-19] MEDS ORDERED: DFL100 PO (15:04)
[2017-04-19] MEDS ORDERED: KFL500 PO (15:04)
[2017-04-19] MEDS ORDERED: ASPEC81 PO (15:04)
[2017-07-02] MEDS ORDERED: LPR25 PO (13:18)
[2017-07-02] MEDS ORDERED: APIX1TAB3 PO (13:18)
== END 2017-01-13 07:50 | disposition home or self-care (01) ==
LOC: EDBD 01:29 → C.EDA 01:30
DX: S62.398A Other fracture of other metacarpal bone, initial encounter for closed fracture (principal); R51 Headache; N18.5 Chronic kidney disease, stage 5; E11.9 Type 2 diabetes mellitus without complications; I48.91 Unspecified atrial fibrillation; J45.909 Unspecified asthma, uncomplicated; I12.9 Hypertensive chronic kidney disease with stage 1 through stage 4 chronic kidney disease, or unspecified chronic kidney disease; E78.5 Hyperlipidemia, unspecified; M06.9 Rheumatoid arthritis, unspecified; K21.9 Gastro-esophageal reflux disease without esophagitis; Z79.4 Long term (current) use of insulin; Z79.899 Other long term (current) drug therapy; Z86.73 Personal history of transient ischemic attack (TIA), and cerebral infarction without residual deficits; Z87.440 Personal history of urinary (tract) infections; Z87.828 Personal history of other (healed) physical injury and trauma; Z82.49 Family history of ischemic heart disease and other diseases of the circulatory system; W01.10XA Fall on same level from slipping, tripping and stumbling with subsequent striking against unspecified object, initial encounter; Y92.129 Unspecified place in nursing home as the place of occurrence of the external cause; Y93.01 Activity, walking, marching and hiking

== ENCOUNTER 2017-03-15 00:10 | Inpatient (IN) | payer OTHER ==
[~2017-03-15] VITALS: Ht 157.5 cm; Wt 81.3 kg
[~2017-03-15 00:10] MED LIST changes: +INSDGIPEN SC; -ISOS120T5 PO; +ISOS60TA25 PO; -LDDP5 TD; +TRAM-10 PO; -ULT50X PO; -ZFRI4 IV; +lidocaine patch TD
[2017-03-15] MEDS ORDERED: ONDANSETRON INJ 2 MG/ML 2 ML VIAL IV STA (00:40)
[2017-03-15] MEDS ORDERED: MoRPHine SULFATE 4 MG/ML 1 ML CARP\\VIAL IV STA ×2 (00:40→02:39)
[2017-03-15 00:49] LABS: HEMATOCRIT 33.4 % (37-47); MEAN CORPUSCULAR HEMOGLOBIN 24.3 pg (25-34); MEAN CORPUSCULAR HGB CONC 30.8 g/dl (32-36); MEAN PLATELET VOLUME 8.8 fL (7.4-10.4); PLATELET COUNT 336 K/uL (130-400); RED BLOOD COUNT 4.23 M/uL (4.2-5.4); WHITE BLOOD COUNT 8.72 K/uL (4.8-10.8)
--- NOTE | 2017-03-15 00:54 | EMERGENCY ROOM VISIT NOTE ---
History Report prepared by Scribe: Lakisha Lee Under the Supervision of: Dr. Brie Best D.O. First contact with patient: 00:16 Chief Complaint: CHEST PAIN Stated Complaint: CHEST PAIN/ SHORT OF BREATH History of Present Illness The patient is an 82 year old female who presents to the Emergency Room with complaints of persistent chest pain that started at 2200 this evening. She was brought to the ED via EMS from [facility], where she resides. She rates her pain as being between an 8.5/10 and 9/10. Deep inspiration and coughing worsen her discomfort. She was given 3 Nitro tabs which provided no relief, but one Nitro spray in the field, did help to relieve some of her pain. She also complains of coughing, mild shortness of breath and right sided abdominal pain, which she states she has been experiencing for "a while". She notes the abdominal pain prompted her doctor, Dr. Viveros, to order a bone scan, ultrasound and chest X-Ray. The patient states she has not heard back on the results from her tests yet. She denies any history of previous CT's but admits to multiple previous CVA's. Source of History: patient Onset: 2200 this evening Position: chest Symptom Intensity: 8.5/10 to 9/10 Timing: other (persistent) Modifying Factors (Worsening): breathing (deep inspiration), other (coughing ) Modifying Factors (Relieving): other (Nitro [place]) Associated Symptoms: + cough, + SOB, + abdominal pain Review of Systems See HPI for pertinent positives & negatives. A total of 10 systems reviewed and were otherwise negative. 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 (9) CEREBRAL THROMBOSIS W CEREBRAL INFARCTION (10) CEREBROVASC DISEASE NOS (11) Chest pain (12) Chest pain radiating to arm (13) CHRONIC KIDNEY DISEASE, STAGE V (14) Chronic pain (15) CVA (cerebral infarction) (16) CYSTIC KIDNEY DISEASE, UNSPECIFIED (17) Depression (18) Depression (19) Diabetes (20) Discharge planning issues (21) Elevated troponin (22) ESOPHAGEAL REFLUX (23) Fracture of thoracic spine (24) Heart disease (25) HTN (hypertension) (26) Hyperlipidemia (27) HYPERPARATHYROIDISM, UNSPECIFIED (28) Hypoglycemia (29) Intentional self-harm (30) Leg weakness, bilateral (31) Leukocytosis (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 (33) Osteoarthritis (34) PANCREATIC DISEASE NEC (35) Past Psychotropic Medications (36) PERIPH VASCULAR DIS NOS (37) Precordial chest pain (38) R sided numbness (39) Rheumatoid arthritis (40) Right sided weakness (41) Suicide attempt by acetaminophen overdose (42) Thoracic spine fracture (43) TIA (transient ischemic attack) (44) UTI (urinary tract infection) (45) VASCULAR DEMENTIA, UNCOMPLICATED (46) VERTIGO (47) VITAMIN D DEFICIENCY NOS (48) Wrist fracture Surgical Problems: (1) Hx of coronary artery bypass surgery Family History Heart disease Myocardial infarction Social History Smoking Status: Never Smoker Alcohol Use: none Drug Use: none Marital Status: single Housing Status: lives alone Occupation Status: retired Current/Historical Medications Scheduled Alendronate Sodium (Fosamax), 70 MG PO WK Calcium Carbonate-Vitamin D (Oscal 500/200 D-3), 1 TAB PO AMPM Diphenhydramine Hcl (Benadryl Allergy), 25 MG PO HS Dipyridamole/Aspirin (Aggrenox 25-200 mg), 1 CAP PO BID Docusate Sodium (Colace), 100 MG PO BID Escitalopram Oxalate (Lexapro), 20 MG PO DAILY Furosemide (Lasix), 80 MG PO BID Bbksezqy-Exunvmkvhqvu-Efosullz (Artificial Tears), 2 DROPS OPB QS Insulin Glargine (Lantus Solostar), 15 UNITS SC HS Isosorbide Mononitrate (Isosorbide Mononitrate ER), 90 MG PO QAM Meclizine Hcl (Meclizine Hcl), 25 MG PO QAM Nitroglycerin (Nitrostat), 0.4 MG UT PRN Pantoprazole (Protonix), 40 MG PO QPM Polyethylene Glycol 3350 (Miralax), 17 GM PO DAILY Potassium Chloride Microencaps (Potassium Chloride Er), 2 TAB PO DAILY Prednisone (Prednisone), 5 MG PO QAM Ranolazine (Ranexa), 1,000 MG PO BID Simvastatin (Zocor), 40 MG PO HS Topiramate (Topamax), 200 MG PO BID Scheduled PRN Acetaminophen (Tylenol), 650 MG PO Q6 PRN for Pain Acetaminophen (Tylenol), 650 MG PO Q6 PRN for TEMP>100 Albuterol Hfa (Ventolin Hfa), 1-2 PUFFS INH Q4 PRN for Shortness of Breath Sennosides-Docusate Sodium (Senna Plus), 1 TAB PO Q24H PRN for Constipation Tramadol (Ultram), 50 MG PO Q6 PRN for Pain Allergies Coded Allergies: Iodinated Diagnostic Agents (Verified Allergy, Severe, ANAPHYLAXIS, 01/13/17 ) [place] (Verified Allergy, Severe, RASH, HIVES, TROUBLE BREATHING, 01/13/17) Promethazine (Verified Allergy, Severe, HIVES, TROUBLE BREATHING, 01/13/17) Bupropion (Verified Allergy, Intermediate, RASH, 01/13/17) Diazepam (Verified Allergy, Intermediate, Rash, 01/13/17) Reported by PT. Erythromycin (Verified Allergy, Intermediate, RASH, 01/13/17) Iodine (Verified Allergy, Intermediate, RASH, HIVES, 01/13/17) Penicillins (Verified Allergy, Intermediate, RASH, 01/13/17) Phenytoin (Verified Allergy, Unknown, PT UNSURE, 01/13/17) Tamsulosin (Verified Adverse Reaction, Intermediate, DIZZINESS, 01/13/17) Physical Exam Vital Signs Date Time Temp Pulse Resp B/P (MAP) Pulse Ox O2 Delivery O2 Flow Rate FiO2 03/15/17 04:28 81 16 137/76 98 Room Air 03/15/17 04:06 79 03/15/17 02:45 88 18 147/76 98 Room Air 03/15/17 01:52 88 16 135/95 97 Room Air 03/15/17 00:31 107 03/15/17 00:30 94 Room Air 03/15/17 00:30 37.2 91 16 145/100 96 Room Air Physical Exam HEENT: Head - normocephalic and atraumatic Pupils are equal, round, and reactive to light. Extraocular eye muscles are intact, and sclera are anicteric. Nose - moist nasal mucosa without discharge. Mouth - moist buccal mucosa. Oropharynx is nonerythematous and there is no tonsillar exudate or edema noted. Neck: Supple; no JVD, nuchal rigidity, cervical lymphadenopathy. Heart: Regular rate and rhythm. There is a normal S1 and S2 with no murmurs, clicks, or gallops appreciated. Lungs: Diminished breath sounds in both lung mckeon, no wheezes, rales, or rhonchi. Abdomen: Soft, pain in RUQ, nondistended, with good bowel sounds. There are no palpable pulsatile masses or hepatosplenomegaly. There is no guarding, rigidity , or rebound noted. Extremities: 2+ edema to bilateral legs. No evidence of cyanosis or clubbing. There are easily palpable peripheral pulses. Skin: warm and dry with good turgor and no rashes. Medical Decision & Procedures ER Provider Diagnostic Interpretation: Radiology results as stated below per my review and interpretation: CHEST X-RAY, 2 VIEW No pulmonary infiltrates, no pleural effusions, no change from a previous chest x-ray from November 2016. Laboratory Results 03/15/17 00:25 Red Blood Count 4.23, Mean Corpuscular Volume 79.0, Mean Corpuscular Hemoglobin 24.3, Mean Corpuscular Hemoglobin Concent 30.8, Mean Platelet Volume 8.8, Neutrophils (%) (Auto) 55.7, Lymphocytes (%) (Auto) 29.2, Monocytes (%) (Auto) 10.9, Eosinophils (%) (Auto) 3.4, Basophils (%) (Auto) 0.3, Neutrophils # (Auto ) 4.85, Lymphocytes # (Auto) 2.55, Monocytes # (Auto) 0.95, Eosinophils # (Auto ) 0.30, Basophils # (Auto) 0.03 03/15/17 00:25 Test 03/15/17 00:25 White Blood Count 8.72 K/uL (4.8-10.8) Red Blood Count 4.23 M/uL (4.2-5.4) Hemoglobin 10.3 g/dL (12.0-16.0) Hematocrit 33.4 % (37-47) Mean Corpuscular Volume 79.0 fL (80-100) Mean Corpuscular Hemoglobin 24.3 pg (25-34) Mean Corpuscular Hemoglobin Concent 30.8 g/dl (32-36) Platelet Count 336 K/uL (130-400) Mean Platelet Volume 8.8 fL (7.4-10.4) Neutrophils (%) (Auto) 55.7 % Lymphocytes (%) (Auto) 29.2 % Monocytes (%) (Auto) 10.9 % Eosinophils (%) (Auto) 3.4 % Basophils (%) (Auto) 0.3 % Neutrophils # (Auto) 4.85 K/uL (1.4-6.5) Lymphocytes # (Auto) 2.55 K/uL (1.2-3.4) Monocytes # (Auto) 0.95 K/uL (0.11-0.59) Eosinophils # (Auto) 0.30 K/uL (0-0.5) Basophils # (Auto) 0.03 K/uL (0-0.2) RDW Standard Deviation 51.5 fL (36.4-46.3) RDW Coefficient of Variation 17.8 % (11.5-14.5) Immature Granulocyte % (Auto) 0.5 % Immature Granulocyte # (Auto) 0.04 K/uL (0.00-0.02) D-Dimer 420 ug/L FEU (0-500) Anion Gap 9.0 mmol/L (3-11) Est Creatinine Clear Calc Drug Dose 28.0 ml/min Estimated GFR () 34.7 Estimated GFR (Non- 29.9 BUN/Creatinine Ratio 11.0 (10-20) Calcium Level 9.3 mg/dl (8.5-10.1) Total Bilirubin 0.3 mg/dl (0.2-1) Aspartate Amino Transf (AST/SGOT) 11 U/L (15-37) Alanine Aminotransferase (ALT/SGPT) 17 U/L (12-78) Alkaline Phosphatase 53 U/L (45-117) Total Creatine Kinase 40 U/L (26-192) Creatine Kinase MB 1.1 ng/ml (0.5-3.6) Creatine Kinase MB Ratio 2.8 (0-3.0) Troponin I < 0.015 ng/ml (0-0.045) Pro-B-Type Natriuretic Peptide 352 pg/ml (0-1800) Total Protein 7.2 gm/dl (6.4-8.2) Albumin 3.2 gm/dl (3.4-5.0) Globulin 4.0 gm/dl (2.5-4.0) Albumin/Globulin Ratio 0.8 (0.9-2) Laboratory results per my review. Medications Administered Medications (Trade) Dose Ordered Sig/Phil Route Start Time Stop Time Status Last Admin Dose Admin Morphine Sulfate (MoRPHine SULFATE INJ) 4 mg NOW STAT IV 03/15/17 00:40 03/15/17 00:41 DC 03/15/17 01:15 4 MG Ondansetron HCl (Zofran Inj) 4 mg NOW STAT IV 03/15/17 00:40 03/15/17 00:41 DC 03/15/17 01:14 4 MG Morphine Sulfate (MoRPHine SULFATE INJ) 4 mg NOW STAT IV 03/15/17 02:39 03/15/17 02:40 DC 03/15/17 02:45 4 MG Procedure Zofran IV, Morphine Sulfate IV. ECG Indication: chest pain Rate (beats per minute): 94 Rhythm: normal sinus (normal sinus rhythm) Findings: no acute ischemic change, no ectopy, other (Slightly prolonged QT at 492 miliseconds) ED Course 0031: Past medical records reviewed. The patient was evaluated in room A9. A complete history and physical exam was performed. A twelve-lead EKG was obtained as described above. Labs are drawn as above. 0040: Zofran 4 mg IV, Morphine Sulfate 4 mg IV. 0235: Nursing informed me the patient is experiencing more chest pain. I will put in pain medication orders. 0239: Morphine Sulfate 4 mg IV. 0315: I reevaluated the patient. She was asleep but states her chest pain is gone. I discussed my recommendation that she be further evaluated by the hospital medicine team and she verbalized complete understanding and agreement. 0326: I discussed the patients case with Dr. Lainez, [facility] Hospitalist. The patient will be further evaluated. Medical Decision I attest that I have personally reviewed the patient's current medication list. Patient was found to have an elevated blood pressure on initial presentation but it returned to normal when her pain resolved and does not require follow up. The patient is an 82 year old female who presents to the ED with chest pain. Differential diagnosis includes: cardiac ischemia, pneumonia, PE, bronchitis, pleurisy and costochondritis. Lab results show normal WBC, Hemoglobin is at her baseline at 10.3, Creatinine is at her baseline at 1.6, Glucose is 280, negative Troponin, D-dimer of 420. The patient has a long-standing history of chest discomfort. She has been evaluated by cardiology for possible PCI but they did not feel that she was a candidate. The patient is comfortable at this time. She had relief of the chest discomfort with some nitroglycerin and some morphine. Consults Time Called: 03:26 Consulting Physician: Dr. Henderson Impression Primary Impression: Left sided chest pain Scribe Attestation The scribe's documentation has been prepared under my direction and personally reviewed by me in its entirety. I confirm that the note above accurately reflects all work, treatment, procedures, and medical decision making performed by me. Departure Information Dispostion Being Evaluated By Hospitalist Referrals GeorgeAnayeli (PCP) Patient Instructions My [facility]
[2017-03-15 01:22] LABS: BASO % 0.3 %; BASO ABS # 0.03 K/uL (0-0.2); COMPLETE YES; EOS % 3.4 %; IG% 0.5 %; LYMPH % 29.2 %; LYMPH ABS # 2.55 K/uL (1.2-3.4); MONO % 10.9 %; NEUT % 55.7 %
[2017-03-15 01:32] LABS: ALB/GLOB RATIO 0.8 (0.9-2); ALKALINE PHOSPHATASE 53 U/L (45-117); ALT/SGPT 17 U/L (12-78); BLOOD UREA NITROGEN 18 mg/dl (7-18); CALCIUM 9.3 mg/dl (8.5-10.1); CARBON DIOXIDE 29 mmol/L (21-32); CHLORIDE 98 mmol/L (98-107); GLUCOSE 280 mg/dl (70-99)
[2017-03-15 01:35] LABS: POTASSIUM 3.7 mmol/L (3.5-5.1); SODIUM 136 mmol/L (136-145)
[2017-03-15 01:43] LABS: AST/SGOT 11 U/L (15-37); CKMB/CK RATIO 2.8 (0-3.0)
[2017-03-15] MEDS ORDERED: ACET-1311 PO (02:22)
[2017-03-15] MEDS ORDERED: GLYCDRO6 OPB (02:28)
[2017-03-15] MEDS ORDERED: ISOS-11 PO (02:29)
[2017-03-15] MEDS ORDERED: ESCI1TAB10 PO (02:38)
[2017-03-15] MEDS ORDERED: SENN1TAB65 PO (02:38)
[2017-03-15] MEDS ORDERED: POLY335019 PO (02:40)
[2017-03-15] MEDS ORDERED: POTA20TA13 PO (02:40)
[2017-03-15] MEDS ORDERED: SODIUM CHLORIDE 0.9% 1000ML 1,000 ML IV SCH (04:33)
[2017-03-15] MEDS ORDERED: IV FLUIDS COMPLETED PRN (04:45)
[2017-03-15] MEDS ORDERED: ACETAMINOPHEN 325 MG TAB PO PRN (04:45)
[2017-03-15] MEDS ORDERED: GLUCOSE 10 TABS/TUBE PO PRN (04:45)
[2017-03-15] MEDS ORDERED: NITROGLYCERIN 0.4 MG SL PER TAB CHARGE SL PRN (04:45)
[2017-03-15] MEDS ORDERED: DEXTROSE 50% 50 ML SYR IV PRN (04:45)
[2017-03-15] MEDS ORDERED: GLUCAGON FOR INJ 1 MG VIAL SQ PRN (04:45)
[2017-03-15] MEDS ORDERED: GLUCOSE 40% GEL 15 GM TUBE PO PRN (04:45)
[2017-03-15] MEDS ORDERED: ALBUTEROL HFA 8 GM INHALER INH PRN (04:45)
[2017-03-15 05:30] VITALS: BP 164/78; PULSE 82; TEMP 36.6; O2SAT 97; Ht 157.5 cm; Wt 81.3 kg
[2017-03-15] MEDS: INSULIN ASPART 100 UNITS/ML 3 ML PEN SC SCH ×4 (07:00→20:56)
--- NOTE | 2017-03-15 07:00 | History and Physical ---
History & Physical Date & Time of Service: Mar 15, 2017 at 06:46 Chief Complaint: Abdominal Pain, Chest Pain Radiating To Arm Primary Care Physician: Anayeli Heath History of Present Illness Source: patient The patient is an 82-year-old female resident of [facility], who is brought to the ED via EMS due to complaint of persistent right-sided chest discomfort radiating to her right arm and right sided abdominal discomfort. Her pain is worsened by deep inspiration and coughing, was not approved by 3 nitroglycerin tablets, but did have minor relief with the nitroglycerin spray in the field. Because of these pains, she underwent a bone scan, ultrasound and chest x-ray at [facility], but does not know the results of this time. She has not had any change in bowel or bladder function, she's not had fevers or chills, she has not had any recent travel ,or sick exposures. 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 (5) CEREBROVASC DISEASE NOS Status: Chronic (6) Chest pain Status: Resolved (7) CHRONIC KIDNEY DISEASE, STAGE V Status: Chronic (8) CVA (cerebral infarction) Status: Resolved (9) CYSTIC KIDNEY DISEASE, UNSPECIFIED Status: Chronic (10) Depression Status: Chronic (11) Diabetes Status: Chronic (12) ESOPHAGEAL REFLUX Status: Chronic (13) Heart disease Status: Chronic (14) HTN (hypertension) Status: Chronic (15) HYPERPARATHYROIDISM, UNSPECIFIED Status: Chronic (16) Osteoarthritis Status: Chronic (17) PANCREATIC DISEASE NEC Status: Chronic (18) PERIPH VASCULAR DIS NOS Status: Chronic (19) R sided numbness Status: Chronic (20) Rheumatoid arthritis Status: Chronic (21) Right sided weakness Status: Chronic (22) VASCULAR DEMENTIA, UNCOMPLICATED Status: Chronic (23) VITAMIN D DEFICIENCY NOS Status: Chronic (24) Wrist fracture Status: Resolved Surgical Problems: (1) Hx of coronary artery bypass surgery Status: Resolved Family History Heart disease Myocardial infarction Social History Smoking Status: Unknown if Ever Smoked Smokeless Tobacco Use: No Alcohol Use: none Drug Use: none Marital Status: single Housing status: penitentiary Occupational Status: retired Immunizations History of Influenza Vaccine: No History of Tetanus Vaccine?: utd History of Pneumococcal: Yes Pneumococcal Date: Sep 24, 2010 History of Hepatitis B Vaccine: No Multi-Drug Resistant Organisms History of MDRO: No Allergies Coded Allergies: Iodinated Diagnostic Agents (Verified Allergy, Severe, ANAPHYLAXIS, 01/13/17 ) Ambrose (Verified Allergy, Severe, RASH, HIVES, TROUBLE BREATHING, 01/13/17) Promethazine (Verified Allergy, Severe, HIVES, TROUBLE BREATHING, 01/13/17) Bupropion (Verified Allergy, Intermediate, RASH, 01/13/17) Diazepam (Verified Allergy, Intermediate, Rash, 01/13/17) Reported by PT. Erythromycin (Verified Allergy, Intermediate, RASH, 01/13/17) Iodine (Verified Allergy, Intermediate, RASH, HIVES, 01/13/17) Penicillins (Verified Allergy, Intermediate, RASH, 01/13/17) Phenytoin (Verified Allergy, Unknown, PT UNSURE, 01/13/17) Tamsulosin (Verified Adverse Reaction, Intermediate, DIZZINESS, 01/13/17) Home Medications Scheduled Alendronate Sodium (Fosamax), 70 MG PO WK Calcium Carbonate-Vitamin D (Oscal 500/200 D-3), 1 TAB PO AMPM Diphenhydramine Hcl (Benadryl Allergy), 25 MG PO HS Dipyridamole/Aspirin (Aggrenox 25-200 mg), 1 CAP PO BID Docusate Sodium (Colace), 100 MG PO BID Escitalopram Oxalate (Lexapro), 20 MG PO DAILY Furosemide (Lasix), 80 MG PO BID Sbmpyryr-Zvjujwumcncq-Mgntwsda (Artificial Tears), 2 DROPS OPB QS Insulin Glargine (Lantus Solostar), 15 UNITS SC HS Isosorbide Mononitrate (Isosorbide Mononitrate ER), 90 MG PO QAM Meclizine Hcl (Meclizine Hcl), 25 MG PO QAM Nitroglycerin (Nitrostat), 0.4 MG UT PRN Pantoprazole (Protonix), 40 MG PO QPM Polyethylene Glycol 3350 (Miralax), 17 GM PO DAILY Potassium Chloride Microencaps (Potassium Chloride Er), 2 TAB PO DAILY Prednisone (Prednisone), 5 MG PO QAM Ranolazine (Ranexa), 1,000 MG PO BID Simvastatin (Zocor), 40 MG PO HS Topiramate (Topamax), 200 MG PO BID Scheduled PRN Acetaminophen (Tylenol), 650 MG PO Q6 PRN for Pain Acetaminophen (Tylenol), 650 MG PO Q6 PRN for TEMP>100 Albuterol Hfa (Ventolin Hfa), 1-2 PUFFS INH Q4 PRN for Shortness of Breath Sennosides-Docusate Sodium (Senna Plus), 1 TAB PO Q24H PRN for Constipation Tramadol (Ultram), 50 MG PO Q6 PRN for Pain Review of Systems The patient denies palpitations, sore throat, fevers, chills, sweats, weight change, fatigue, nausea, vomiting, blood in urine or stool, dysuria, urinary frequency or urgency, lightheadedness, dizziness, headache, rash, abnormal bruising or bleeding, imbalance, focal or generalized weakness, numbness or tingling in legs, generalized arthralgias or myalgias, back or neck pain, night sweats. The review of systems is otherwise negative other than for that already noted above, and at least 10 systems have been reviewed. Physical Exam Vital Signs Date Time Temp Pulse Resp B/P (MAP) Pulse Ox O2 Delivery O2 Flow Rate FiO2 03/15/17 05:30 36.6 82 16 164/78 97 Room Air 03/15/17 04:28 81 16 137/76 98 Room Air 03/15/17 04:06 79 03/15/17 02:45 88 18 147/76 98 Room Air 03/15/17 01:52 88 16 135/95 97 Room Air 03/15/17 00:31 107 03/15/17 00:30 94 Room Air 03/15/17 00:30 37.2 91 16 145/100 96 Room Air The patient is awake, well-developed and adequately nourished, alert and oriented 3, normocephalic and atraumatic, lying in bed and in no acute distress. HEENT--PERRL, EOMI, mucous membranes and oropharynx normal. Neck--supple, no JVD or bruits, thyroid normal, trachea midline, no adenopathy. Heart--normal S1 and S2, no extra beats, no murmurs, rubs or gallops. Lungs--clear bilaterally, decreased breath sounds throughout, no respiratory distress, no accessory muscle use. Abdomen--normal bowel sounds and soft, tender right upper quadrant, nondistended , no hernias or masses, no organomegaly. Extremities--no cyanosis, clubbing or edema. There are good distal pulses b/l. Dermatologic--normal skin turgor, normal color, warm and dry, no abnormal lymph nodes, no rash. Neurologic--cranial nerves II through XII grossly intact. Rheumatologic--no reproducible chest wall or arm pain. Psychiatric--normal affect. Diagnostics Laboratory Results Results Past 24 Hours Test 03/15/17 00:25 Range/Units White Blood Count 8.72 4.8-10.8 K/uL Red Blood Count 4.23 4.2-5.4 M/uL Hemoglobin 10.3 12.0-16.0 g/dL Hematocrit 33.4 37-47 % Mean Corpuscular Volume 79.0 80-100 fL Mean Corpuscular Hemoglobin 24.3 25-34 pg Mean Corpuscular Hemoglobin Concent 30.8 32-36 g/dl Platelet Count 336 130-400 K/uL Mean Platelet Volume 8.8 7.4-10.4 fL Neutrophils (%) (Auto) 55.7 % Lymphocytes (%) (Auto) 29.2 % Monocytes (%) (Auto) 10.9 % Eosinophils (%) (Auto) 3.4 % Basophils (%) (Auto) 0.3 % Neutrophils # (Auto) 4.85 1.4-6.5 K/uL Lymphocytes # (Auto) 2.55 1.2-3.4 K/uL Monocytes # (Auto) 0.95 0.11-0.59 K/uL Eosinophils # (Auto) 0.30 0-0.5 K/uL Basophils # (Auto) 0.03 0-0.2 K/uL RDW Standard Deviation 51.5 36.4-46.3 fL RDW Coefficient of Variation 17.8 11.5-14.5 % Immature Granulocyte % (Auto) 0.5 % Immature Granulocyte # (Auto) 0.04 0.00-0.02 K/uL D-Dimer 420 0-500 ug/L FEU Sodium Level 136 136-145 mmol/L Potassium Level 3.7 3.5-5.1 mmol/L Chloride Level 98 98-107 mmol/L Carbon Dioxide Level 29 21-32 mmol/L Anion Gap 9.0 3-11 mmol/L Blood Urea Nitrogen 18 7-18 mg/dl Creatinine 1.60 0.60-1.20 mg/dl Est Creatinine Clear Calc Drug Dose 28.0 ml/min Estimated GFR () 34.7 Estimated GFR (Non- 29.9 BUN/Creatinine Ratio 11.0 10-20 Random Glucose 280 70-99 mg/dl Calcium Level 9.3 8.5-10.1 mg/dl Total Bilirubin 0.3 0.2-1 mg/dl Aspartate Amino Transf (AST/SGOT) 11 15-37 U/L Alanine Aminotransferase (ALT/SGPT) 17 12-78 U/L Alkaline Phosphatase 53 45-117 U/L Total Creatine Kinase 40 26-192 U/L Creatine Kinase MB 1.1 0.5-3.6 ng/ml Creatine Kinase MB Ratio 2.8 0-3.0 Troponin I < 0.015 0-0.045 ng/ml Pro-B-Type Natriuretic Peptide 352 0-1800 pg/ml Total Protein 7.2 6.4-8.2 gm/dl Albumin 3.2 3.4-5.0 gm/dl Globulin 4.0 2.5-4.0 gm/dl Albumin/Globulin Ratio 0.8 0.9-2 Microbiology Results 03/15/17 MRSA DNA Surveillance Screen, Received Pending EKG EKG shows normal sinus rhythm at 94 bpm, left axis deviation, prolonged QT, no acute ST-T changes. Impression Assessment and Plan Right-sided chest pain with radiation to right arm--patient be admitted to the telemetry unit for serial cardiac enzymes, cardiac rhythm monitoring and a 2-D echocardiogram with Dopplers. Right upper quadrant pain with gallstones on CT--we'll order a HIDA scan with gallbladder ejection fraction. Diabetes mellitus--reduce Lantus from 45 units subcutaneous every afternoon to 10 units subcutaneous every afternoon. Pacemaker checks before meals and at bedtime with NovoLog coverage. Atrial fibrillation/hypertension--hold Ranexa, and dipyridamole in case of possible surgery. Hold furosemide, potassium. Continue Imdur 90 mg by mouth every morning. GERD--continue pantoprazole 40 mg by mouth every evening. Anxiety/depression--continue Lexapro 10 mg by mouth every morning, nortriptyline 25 mg by mouth every evening, topiramate 200 mg by mouth twice a day. Level of Care Telemetry Advanced Directives Existing Advance Directive: No Existing Living Will: Yes Existing Power of Dealer Development Manager: Yes (denny calvo) Resuscitation Status FULL RESUSCITATION VTE Prophylaxis VTE Risk Assessment Done? Y/N: Yes Risk Level: Moderate Given or contraindicated: SCD's Social Service Consult Lives in Long-Term
[2017-03-15 07:42] VITALS: BP 122/71; PULSE 79; TEMP 36.7; O2SAT 94
[2017-03-15] MEDS: ARTIFICIAL TEARS OP SOLN OPB SCH ×6 (08:00→23:33)
--- NOTE | 2017-03-15 08:11 | DIAGNOSTIC IMAGING REPORT ---
CT SCAN OF THE CHEST, ABDOMEN, AND PELVIS WITHOUT IV CONTRAST CLINICAL HISTORY: Dyspnea. A right-sided chest pain. Right-sided abdominal pain. COMPARISON STUDY: Chest x-ray dated 03/15/2017. Chest CT scans dated 07/19/2015 and 11/21/2013. Abdominal CT dated 05/27/2016. CT scan of the thoracic spine dated 12/30/2016. TECHNIQUE: CT scan of the chest, abdomen, and pelvis was performed from the thoracic inlet to the proximal femora. Images are reviewed in the axial, sagittal, and coronal planes. IV contrast was not administered as per the referring clinician due to a reported history of contrast allergy. Note that the examination is suboptimal without IV contrast. Automated dose control exposure was utilized. CT DOSE: 1020.23 mGy.cm FINDINGS: CHEST: Thyroid: Imaged portions of the thyroid gland are normal in size and attenuation. Bilateral subcentimeter low-attenuation nodules are noted. A calcification is seen in the right lobe. Thoracic aorta: There is atherosclerotic calcification of the thoracic aorta, which is normal in caliber and demonstrates standard 3-vessel arch anatomy. Heart: The heart is normal in size and configuration, and without pericardial effusion. The coronary arteries are densely calcified. The pulmonary trunk is dilated measuring up to 3.5 cm. This suggests pulmonary artery hypertension. There is diminished attenuation of the cardiac blood pool as compared to the myocardium suggesting anemia. Lungs and pleural spaces: There is no airspace consolidation or pleural effusion. Foci of linear scarring versus atelectasis are present in both lungs. The trachea and central airways Are clear. Mediastinum: There is no mediastinal lymphadenopathy. Niya: Not well assessed without IV contrast. Axillae: There is no axillary lymphadenopathy. Bony thorax: The skeletal structures are heterogeneously osteopenic. There is a moderate and chronic compression deformity of T12. No lytic or blastic lesions are identified. Advanced degenerative changes noted throughout the thoracic spine and there is mild hyperkyphosis. There are numerous healed bilateral rib fractures. There are healed sternal fractures. There are also chronic fractures of T6, T8, T9, and T10. There is partial nonunion of the T8 and T9 fractures. ABDOMEN AND PELVIS: Liver: The unenhanced liver is enlarged, measuring 21.6 cm in length. There is no intrahepatic or ductal dilatation. Gallbladder: Calcified gallstones are identified. The gallbladder is otherwise normal in appearance. Spleen: Normal in size and attenuation. Pancreas: The unenhanced pancreas is atrophic and grossly unremarkable. Adrenal glands: Unremarkable. Kidneys: The unenhanced kidneys are atrophic and without hydronephrosis. There are numerous small bilateral nonobstructing renal calculi. These measure up to 4 mm. No ureteral stone is seen. Right renal cysts measure up to 6.1 cm. A 1.6 cm hyperdense lesion in the left kidney on image #169 is unchanged and likely represents a complex/hemorrhagic cyst. Abdominal vasculature: The abdominal aorta is normal in course and caliber noting advanced atherosclerotic calcification. Stomach and bowel: There is a small hiatal hernia. The duodenum is normal in configuration. No bowel obstruction is seen. There are scattered colonic diverticula without CT evidence of acute diverticulitis. The appendix is not identified. Peritoneum: There is no intraperitoneal free air or abdominal ascites. Lymphadenopathy: None. Pelvic viscera: The bladder is normal as visualized. The uterus is surgically absent. No adnexal lesion is seen. There is a fat-containing left inguinal hernia. Skeletal structures: The skeletal structures are osteopenic. There is moderate to advanced lumbosacral spondylosis. Degenerative changes also seen involving the sacroiliac joints and pubic symphysis. No lytic or blastic lesions are seen. There is a mild chronic compression deformity of L1. Lumbar spine is otherwise intact. Grade 1 anterolisthesis is seen at L4-L5. IMPRESSION: 1. Suboptimal examination without IV contrast. 2. There is no airspace consolidation or pleural effusion. 3. There are no acute infectious or inflammatory findings in the abdomen or pelvis. 4. Small hiatal hernia. 5. Numerous chronic fractures as above. No acute fracture is seen. 6. Cholelithiasis without CT evidence of acute cholecystitis. 7. Small nonobstructing bilateral renal calculi. 8. Additional findings as above. Electronically signed by: Bobby Eugene M.D. 03/15/2017 8:09 AM Dictated Date/Time: 03/15/2017 7:53 AM
--- NOTE | 2017-03-15 08:40 | DIAGNOSTIC IMAGING REPORT ---
TWO VIEW CHEST CLINICAL HISTORY: Cough and dyspnea. FINDINGS: AP and lateral chest radiographs are compared to study dated 12/08/2016. The AP view is degraded by patient rotation. The heart is normal for projection and there is atherosclerotic calcification of the thoracic aorta. Chronic interstitial thickening is similar to previous. The lungs and pleural spaces are clear. No pneumothorax is seen. The skeletal structures are osteopenic. Compression deformities are noted in the lower spine. There are healed bilateral rib fractures. IMPRESSION: No acute cardiopulmonary abnormality. Electronically signed by: Bobby Eugene M.D. 03/15/2017 8:39 AM Dictated Date/Time: 03/15/2017 8:36 AM
[2017-03-15] MEDS: ISOSORBIDE MONONITRATE 30 MG TABCR PO SCH (08:51)
[2017-03-15] MEDS: DOCUSATE SODIUM 100 MG CAP PO SCH ×2 (08:51→19:52)
[2017-03-15] MEDS: MECLIZINE HCL 25 MG TAB PO SCH (08:51)
[2017-03-15] MEDS: ESCITALOPRAM OXALATE 20 MG TAB PO SCH (08:51)
[2017-03-15] MEDS: TOPIRAMATE 100 MG TAB PO SCH ×2 (08:52→19:52)
[2017-03-15] MEDS ORDERED: DIPYRIDAMOLE/ASPIRIN CAP PO SCH (09:00)
[2017-03-15] MEDS ORDERED: BENZONATATE 100MG CAP PO PRN (09:15)
[2017-03-15] MEDS ORDERED: PHARMACY GLYCEMIC MGMT CONSULT SCH (09:18)
[2017-03-15 10:15] LABS: FERRITIN 16.3 ng/ml (8.0-388.0)
--- NOTE | 2017-03-15 10:57 | Pharmacy Progress Note ---
Glycemic Control Intl Consult Date of Service Mar 15, 2017. Scope Glycemic Pharmacist consulted by Dr Beck on 03/15/17 for glycemic control and to write orders per [facility] inpatient glycemic control protocol Objective Weight (Kilograms): 81.200 Accuchecks BSG (last 24hrs): Test 03/15/17 00:25 03/15/17 07:13 Random Glucose 280 mg/dl (70-99) Bedside Glucose 212 mg/dl (70-90) Laboratory Data (last 24hrs) Test 03/15/17 00:25 Anion Gap 9.0 mmol/L BUN/Creatinine Ratio 11.0 Blood Urea Nitrogen 18 mg/dl Creatinine 1.60 mg/dl Potassium Level 3.7 mmol/L Sodium Level 136 mmol/L White Blood Count 8.72 K/uL Red Blood Count 4.23 M/uL Hemoglobin 10.3 g/dL Hematocrit 33.4 % Mean Corpuscular Volume 79.0 fL Mean Corpuscular Hemoglobin 24.3 pg Mean Corpuscular Hemoglobin Concent 30.8 g/dl Platelet Count 336 K/uL Mean Platelet Volume 8.8 fL Neutrophils (%) (Auto) 55.7 % Lymphocytes (%) (Auto) 29.2 % Monocytes (%) (Auto) 10.9 % Eosinophils (%) (Auto) 3.4 % Basophils (%) (Auto) 0.3 % Neutrophils # (Auto) 4.85 K/uL Lymphocytes # (Auto) 2.55 K/uL Monocytes # (Auto) 0.95 K/uL Eosinophils # (Auto) 0.30 K/uL Basophils # (Auto) 0.03 K/uL Recent Pertinent Medications Outpatient Anti-diabetic Regimen: * Lantus 15 units SQ HS * A1c = 6 % 12/31/16 Risk Factors for Insulin Resistance: * Steroids: Prednisone 5mg po daily - home medication * Diet: NPO Assessment & Plan ASSESSMENT: * 82 year old female, resident of [facility], admitted with , only on Lantus as outpatient. Patient also on Prednisone 5mg PO daily at home. * NPO at this time, will start Lantus at slightly reduced dose based on BSG and Novolog CF and CR for when patient is eating. * ADA & AACE recommend a goal blood sugar range 140-180 mg/dl for the majority of critically ill & non-critically ill patients. However, more stringent targets may be selected in individual cases. Will utilize more stringent goal of 110-140mg/dl based on patient age & comorbidities & A1c. PLAN FOR INPATIENT GLYCEMIC CONTROL: * Basal insulin with LANTUS: * BSG < 110mg/dL -0 units * BSG 110-200mg/dL - 10 units * BSG > 200mg/dl - 15 units * Correctional Insulin with NOVOLOG per scale ACHS or Q6hrs while NPO * Goal Range: Low 110 mg/dL - High 140 mg/dL * Correction Factor: 30 mg/dL/unit * Nutritional / Prandial insulin per carb ratio of 1 unit per 12 grams CHO consumed * Please note that the plan above was derived based on current level of insulin resistance and hospital stress. These recommendations are appropriate for inpatient admission only. Plan of care upon discharge will need to be reassessed to avoid potential outpatient hypo/hyperglycemia. Thank you.
[2017-03-15 11:45] VITALS: BP 100/62; PULSE 76; TEMP 36.8; O2SAT 95
--- NOTE | 2017-03-15 11:46 | Family Medicine Progress Note ---
Progress Note Date of Service Mar 15, 2017. Subjective Pt evaluation today including: conversation w/ patient, physical exam, chart review, lab review, review of studies, review of inpatient medication list Pain: Central pleuritic Chest pain worse with cough Per nurse, this Am, patient was difficult to arouse but woke up agitated while vitals were being taken, Patient reports 9/10 constant central Chest pain, worsened with her productive cough. , Constitutional: No fever, No chills Respiratory: + cough, No wheezing, No shortness of breath Cardiovascular: + chest pain, + palpitations, No edema Abdomen: No pain, No nausea, No vomiting, No diarrhea, No constipation Female : No dysuria, No urinary frequency Neurologic: No weakness, No numbness/tingling Skin: No rash, No itch Medications Current Inpatient Medications Medications (Trade) Dose Ordered Sig/Phil Route Start Time Stop Time Status Last Admin Dose Admin Acetaminophen (Tylenol Tab) 650 mg Q4H PRN PO 03/15/17 04:45 04/14/17 04:44 Nitroglycerin (Nitrostat Tab) 0.4 mg UD PRN SL 03/15/17 04:45 04/14/17 04:44 Albuterol (Ventolin Hfa Inhaler) 2 puffs Q4 PRN INH 03/15/17 04:45 04/14/17 04:44 Diphenhydramine HCl (Benadryl Cap) 25 mg HS PO 03/15/17 21:00 04/14/17 20:59 Escitalopram Oxalate (Lexapro Tab) 20 mg DAILY PO 03/15/17 09:00 04/14/17 08:59 03/15/17 08:51 20 MG Pantoprazole Sodium (Protonix Tab) 40 mg QPM PO 03/15/17 21:00 04/14/17 20:59 Prednisone (PredniSONE TAB) 5 mg QAM PO 03/15/17 09:00 04/14/17 08:59 03/15/17 08:52 5 MG Topiramate (Topamax Tab) 200 mg BID PO 03/15/17 09:00 04/14/17 08:59 03/15/17 08:52 200 MG Artificial Tears (Artificial Tears) 2 drops QS OPB 03/15/17 08:00 04/14/17 07:59 03/15/17 08:00 2 DROPS Docusate Sodium (coLACE CAP) 100 mg BID PO 03/15/17 09:00 04/14/17 08:59 03/15/17 08:51 100 MG Isosorbide Mononitrate (Imdur Ext Rel Tab) 90 mg QAM PO 03/15/17 09:00 04/14/17 08:59 03/15/17 08:51 90 MG Meclizine HCl (Antivert Tab) 25 mg QAM PO 03/15/17 09:00 04/14/17 08:59 03/15/17 08:51 25 MG Senna/Docusate Sodium (Senokot S Tab) 1 tab DAILY PRN PO 03/15/17 04:45 04/14/17 04:44 Tramadol HCl (Ultram Tab) 50 mg Q6 PRN PO 03/15/17 04:45 04/14/17 04:44 Ondansetron HCl (Zofran Inj) 4 mg Q6H PRN IV 03/15/17 04:45 04/14/17 04:44 Insulin Aspart (novoLOG ASPART) SLIDING SCALE If C... ACHS SC 03/15/17 07:00 04/14/17 06:59 03/15/17 11:51 2 UNITS Glucose (Glucose 40% Gel) UD PRN PO 03/15/17 04:45 04/14/17 04:44 Glucose (Glucose Chew Tab) 1 tabs UD PRN PO 03/15/17 04:45 04/14/17 04:44 Dextrose (Dextrose 50% 50ML Syringe) 50 ml UD PRN IV 03/15/17 04:45 04/14/17 04:44 Glucagon (Glucagon Inj) 1 mg UD PRN SQ 03/15/17 04:45 04/14/17 04:44 Miscellaneous (Iv Fluids Completed) 1 ea PRN PRN N/A 03/15/17 04:45 03/15/18 04:44 Miscellaneous Information (Consult Glycemic Management Pharmacy) 1 ea UD N/A 03/15/17 09:18 04/14/17 09:17 Benzonatate (Tessalon Perles Cap) 100 mg TID PRN PO 03/15/17 09:15 04/14/17 09:14 Insulin Glargine (Lantus Solostar Pen) [facility] 03/15/17 21:00 04/14/17 20:59 Objective Vital Signs Date Time Temp Pulse Resp B/P (MAP) Pulse Ox O2 Delivery O2 Flow Rate FiO2 03/15/17 11:55 Room Air 03/15/17 11:45 36.8 76 15 100/62 (75) 95 Room Air 03/15/17 07:42 Room Air 03/15/17 07:42 36.7 79 17 122/71 (88) 94 Room Air 03/15/17 05:30 36.6 82 16 164/78 97 Room Air 03/15/17 04:28 81 16 137/76 98 Room Air 03/15/17 04:06 79 03/15/17 02:45 88 18 147/76 98 Room Air 03/15/17 01:52 88 16 135/95 97 Room Air 03/15/17 00:31 107 03/15/17 00:30 94 Room Air 03/15/17 00:30 37.2 91 16 145/100 96 Room Air Physical Exam General Appearance: WD/WN, no apparent distress Eyes: PERRL, EOMI Neck: supple, no carotid bruits, trachea midline Respiratory/Chest: lungs clear, normal breath sounds, no respiratory distress, + pertinent finding (Central Chest wall tenderness to palpation ) Cardiovascular: no gallop, no JVD, no murmur Abdomen: normal bowel sounds, non tender, soft Extremities: no pedal edema, no calf tenderness Neurologic/Psychiatric: alert, normal mood/affect, oriented x 3 Skin: warm/dry, no rash Laboratory Results Results Past 24 Hours Test 03/15/17 00:25 03/15/17 07:13 03/15/17 09:02 03/15/17 11:15 Range/Units White Blood Count 8.72 4.8-10.8 K/uL Red Blood Count 4.23 4.2-5.4 M/uL Hemoglobin 10.3 12.0-16.0 g/dL Hematocrit 33.4 37-47 % Mean Corpuscular Volume 79.0 80-100 fL Mean Corpuscular Hemoglobin 24.3 25-34 pg Mean Corpuscular Hemoglobin Concent 30.8 32-36 g/dl Platelet Count 336 130-400 K/uL Mean Platelet Volume 8.8 7.4-10.4 fL Neutrophils (%) (Auto) 55.7 % Lymphocytes (%) (Auto) 29.2 % Monocytes (%) (Auto) 10.9 % Eosinophils (%) (Auto) 3.4 % Basophils (%) (Auto) 0.3 % Neutrophils # (Auto) 4.85 1.4-6.5 K/uL Lymphocytes # (Auto) 2.55 1.2-3.4 K/uL Monocytes # (Auto) 0.95 0.11-0.59 K/uL Eosinophils # (Auto) 0.30 0-0.5 K/uL Basophils # (Auto) 0.03 0-0.2 K/uL RDW Standard Deviation 51.5 36.4-46.3 fL RDW Coefficient of Variation 17.8 11.5-14.5 % Immature Granulocyte % (Auto) 0.5 % Immature Granulocyte # (Auto) 0.04 0.00-0.02 K/uL D-Dimer 420 0-500 ug/L FEU Sodium Level 136 136-145 mmol/L Potassium Level 3.7 3.5-5.1 mmol/L Chloride Level 98 98-107 mmol/L Carbon Dioxide Level 29 21-32 mmol/L Anion Gap 9.0 3-11 mmol/L Blood Urea Nitrogen 18 7-18 mg/dl Creatinine 1.60 0.60-1.20 mg/dl Est Creatinine Clear Calc Drug Dose 28.0 ml/min Estimated GFR () 34.7 Estimated GFR (Non- 29.9 BUN/Creatinine Ratio 11.0 10-20 Random Glucose 280 70-99 mg/dl Calcium Level 9.3 8.5-10.1 mg/dl Total Bilirubin 0.3 0.2-1 mg/dl Aspartate Amino Transf (AST/SGOT) 11 15-37 U/L Alanine Aminotransferase (ALT/SGPT) 17 12-78 U/L Alkaline Phosphatase 53 45-117 U/L Total Creatine Kinase 40 26-192 U/L Creatine Kinase MB 1.1 0.5-3.6 ng/ml Creatine Kinase MB Ratio 2.8 0-3.0 Troponin I < 0.015 0-0.045 ng/ml Pro-B-Type Natriuretic Peptide 352 0-1800 pg/ml Total Protein 7.2 6.4-8.2 gm/dl Albumin 3.2 3.4-5.0 gm/dl Globulin 4.0 2.5-4.0 gm/dl Albumin/Globulin Ratio 0.8 0.9-2 Bedside Glucose 212 200 70-90 mg/dl Iron Level 33 35-150 mcg/dl Total Iron Binding Capacity 274 250-450 mcg/dl Transferrin 184 200-360 mg/dl Transferrin % Saturation 13 15-50 % Ferritin 16.3 8.0-388.0 ng/ml Test 03/15/17 12:30 Range/Units Total Creatine Kinase 41 26-192 U/L Creatine Kinase MB 1.6 0.5-3.6 ng/ml Creatine Kinase MB Ratio 3.9 0-3.0 Troponin I 0.016 0-0.045 ng/ml Microbiology Results 03/15/17 MRSA DNA Surveillance Screen - Final, Complete Specimen Negative for MRSA by DNA Probe Assessment and Plan 82 yo F with Hx iof CAD s/p CABG, hx of AFib, CVA, CKD, Stage V presenting with Rt sided Chest pain radiating to R. arm with nonspecific EKG changes and negative troponins in addition to RUQ pain. Chest Pain: - Central pleuritic Chest pain currently with palpable chest wall tenderness - negative D-Dimer, Negative Troponin, - PE, [place], unlikely given these findings - CT Chest: no airspace consolidation or pleural effusion, no acute infectious or inflammatory findings Small hiatal hernia - MSK etiology possibly - Continue to trend cardiac enzymes - Maintain on Telemetry RUQ Pain: RUQ pain, Tenderness to palpation CT: Cholelithiasis without CT evidence of acute cholecystitis. HIDA scan ordered, f/u result Anemia: IRon Studies consistent with Iron Def. Anemia Given IV Iron 300 mg loading dose F/u Stool Heme occult Should go home on Iron supp T2DM: Glycemic cosult Paroxysmal Afib/ CAD -has been in NSR in the 70's - restarted Statin -Continue to monitor Anxiey /Depression - C/w Lexapro, Topiramate DVT Prophylaxis - Start Heparin Disposition -PTOT -Patient is as resident of [facility] and will Continued [facility] stay due to: inadequate oral pain control Discharge planning: senior care facility Resident Tracking Resident Involvement: Resident Care Provided Care Provided: Adult Hospital Medicine
[2017-03-15] MEDS ORDERED: IRON SUCROSE INJ 300 MG in SODIUM CHLORIDE 0.9% 100ML 100 ML IV SCH (12:30)
[2017-03-15 13:17] LABS: CKMB/CK RATIO 3.9 (0-3.0)
[2017-03-15] MEDS: TRAMADOL HCL 50 MG TAB PO PRN (14:52)
[2017-03-15 14:58] VITALS: BP 122/60; PULSE 94; TEMP 36.8; O2SAT 98
[2017-03-15 16:16] LABS: INR 1.1 (0.9-1.1); PARTIAL THROMBOPLASTIN RATIO 1.1; PROTHROMBIN TIME (PATIENT) 11.4 SECONDS (9.0-12.0)
[2017-03-15 18:56] VITALS: BP 118/70; PULSE 79; TEMP 36.8; O2SAT 94
[2017-03-15] MEDS: PANTOprazole SOD 40 MG TAB PO SCH (19:51)
[2017-03-15] MEDS: SIMVASTATIN 40 MG TAB PO SCH (19:51)
[2017-03-15] MEDS: INSULIN GLARGINE SOLOSTAR 100 UNITS/ML 3 ML PEN SC SCH (20:56)
[2017-03-15] MEDS ORDERED: INSULIN GLARGINE SOLOSTAR 100 UNITS/ML 3 ML PEN SC SCH ×2 (21:00)
[2017-03-15] MEDS: HEPARIN SOD 5000 UNIT/0.5 ML CARP SQ SCH (21:00)
[2017-03-15 21:26] LABS: CKMB/CK RATIO 2.3 (0-3.0)
[2017-03-15 23:30] VITALS: BP 121/73; PULSE 74; TEMP 36.9; O2SAT 95
[2017-03-16] VITALS (8 sets, daily range): BP systolic 112–155; BP diastolic 57–76; PULSE 74–93; TEMP 36.8–37.2; O2SAT 92–98
[2017-03-16] MEDS: HEPARIN SOD 5000 UNIT/0.5 ML CARP SQ SCH ×3 (06:33→21:19)
[2017-03-16 06:47] LABS: BUN/CREATININE RATIO 9.6 (10-20); CALCIUM 9.1 mg/dl (8.5-10.1); CREATININE 1.5 mg/dl (0.60-1.20); MAGNESIUM 2.7 mg/dl (1.8-2.4); POTASSIUM 3.6 mmol/L (3.5-5.1)
[2017-03-16] MEDS: DOCUSATE SODIUM/SENNA 50/8.6MG TAB PO PRN (07:47)
[2017-03-16] MEDS: ESCITALOPRAM OXALATE 20 MG TAB PO SCH (07:48)
[2017-03-16] MEDS: DOCUSATE SODIUM 100 MG CAP PO SCH ×2 (07:48→21:16)
[2017-03-16] MEDS: TOPIRAMATE 100 MG TAB PO SCH ×2 (07:48→21:16)
[2017-03-16] MEDS: MECLIZINE HCL 25 MG TAB PO SCH (07:48)
[2017-03-16] MEDS: ISOSORBIDE MONONITRATE 30 MG TABCR PO SCH (07:50)
[2017-03-16] MEDS: INSULIN ASPART 100 UNITS/ML 3 ML PEN SC SCH ×4 (07:52→21:00)
[2017-03-16] MEDS: ARTIFICIAL TEARS OP SOLN OPB SCH ×6 (08:08→23:53)
[2017-03-16 08:25] LABS: BASO % 0.7 %; BASO ABS # 0.05 K/uL (0-0.2); COMPLETE YES; HEMATOCRIT 32.6 % (37-47); IG% 0.3 %; LYMPH % 30.3 %; LYMPH ABS # 2.22 K/uL (1.2-3.4); MEAN CELL VOLUME 81.3 fL (80-100); MEAN CORPUSCULAR HEMOGLOBIN 25.7 pg (25-34); MEAN CORPUSCULAR HGB CONC 31.6 g/dl (32-36); MEAN PLATELET VOLUME 9.1 fL (7.4-10.4); MONO % 11.9 %; NEUT % 49.8 %; PLATELET COUNT 325 K/uL (130-400); RED BLOOD COUNT 4.01 M/uL (4.2-5.4); WHITE BLOOD COUNT 7.32 K/uL (4.8-10.8)
[2017-03-16] MEDS ORDERED: SINCALIDE INJ 1.6 MCG in SODIUM CHLORIDE 0.9% 100ML 100 ML IV ONE (10:30)
--- NOTE | 2017-03-16 12:08 | DIAGNOSTIC IMAGING REPORT ---
NUCLEAR MEDICINE HEPATOBILIARY SCAN WITH EJECTION FRACTION HISTORY: Pain ruq pain, gallstones on CT COMPARISON: None. TECHNIQUE: Immediately following the intravenous administration of 5.7 mCi Tc-99m Choletec, dynamic anterior abdominal imaging pre/post 1.6 mcg of Kinevac was performed. FINDINGS: Uniform hepatic tracer accumulation is shown. Prompt intrahepatic biliary excretion is seen. The gallbladder, common bile duct, and small bowel are all visualized by 15 minutes. This appearance represents the normal sequence of biliary excretion. The gallbladder ejection fraction following administration of Kinevac was 56 % (normal >35%). IMPRESSION: 1. No evidence for cystic duct obstruction. 2. Gallbladder ejection fraction calculated to be 56 %. Electronically signed by: Ashwin Handy M.D. 03/16/2017 12:06 PM Dictated Date/Time: 03/16/2017 12:05 PM
[2017-03-16] MEDS: TRAMADOL HCL 50 MG TAB PO PRN ×2 (13:48→23:26)
--- NOTE | 2017-03-16 14:42 | DIAGNOSTIC IMAGING REPORT ---
[place] CLINICAL HISTORY: ?constipation pain COMPARISON STUDY: 01/26/2016 FINDINGS: Nonobstructive bowel pattern. Mild nonobstructive ileus. No evidence for fecal impaction. No evidence for abnormal fecal load. IMPRESSION: No acute process. Mild nonobstructive ileus. Electronically signed by: Ashwin Handy M.D. 03/16/2017 2:41 PM Dictated Date/Time: 03/16/2017 2:40 PM
[2017-03-16 17:02] LABS: URINE APPEARANCE CLEAR (CLEAR); URINE BILIRUBIN NEG (NEG); URINE COLOR YELLOW; URINE EPITHELIAL CELL AUTO >30 /lpf (0-5); URINE NITRITE NEG (NEG); URINE SPECIFIC GRAVITY 1.011 (1.000-1.030); UROBILINOGEN NEG (NEG); ZZUR CULT IF INDIC CLEAN CATCH NO
[2017-03-16 17:05] LABS: MANUAL MICROSCOPIC REQUIRED? NO; REVIEW REQ? NO
--- NOTE | 2017-03-16 17:54 | Family Medicine Progress Note ---
Progress Note Date of Service Mar 16, 2017. Subjective Pt evaluation today including: conversation w/ patient, physical exam, chart review, lab review, conversation w/ [facility] consultant, review of inpatient medication list Pain: continues to have RLQ pain Patient slept well overnight Still having R sided abdominal pain and RUQ tenderness. pain has been persistent for a week HIDA scan negative, ABXR showing stool in rectal vault patient denies any nausea, vomiting or further bowel movements Constitutional: No fever, No chills, No sweats Respiratory: No cough, No shortness of breath Cardiovascular: No chest pain, No palpitations Abdomen: + pain, No nausea, No vomiting, No diarrhea, No constipation Female : No dysuria, No hematuria Medications Current Inpatient Medications Medications (Trade) Dose Ordered Sig/Phil Route Start Time Stop Time Status Last Admin Dose Admin Acetaminophen (Tylenol Tab) 650 mg Q4H PRN PO 03/15/17 04:45 04/14/17 04:44 Nitroglycerin (Nitrostat Tab) 0.4 mg UD PRN SL 03/15/17 04:45 04/14/17 04:44 Albuterol (Ventolin Hfa Inhaler) 2 puffs Q4 PRN INH 03/15/17 04:45 04/14/17 04:44 Diphenhydramine HCl (Benadryl Cap) 25 mg HS PO 03/15/17 21:00 04/14/17 20:59 03/15/17 21:00 25 MG Escitalopram Oxalate (Lexapro Tab) 20 mg DAILY PO 03/15/17 09:00 04/14/17 08:59 03/16/17 07:48 20 MG Pantoprazole Sodium (Protonix Tab) 40 mg QPM PO 03/15/17 21:00 04/14/17 20:59 03/15/17 19:51 40 MG Prednisone (PredniSONE TAB) 5 mg QAM PO 03/15/17 09:00 04/14/17 08:59 03/16/17 07:47 5 MG Topiramate (Topamax Tab) 200 mg BID PO 03/15/17 09:00 04/14/17 08:59 03/16/17 07:48 200 MG Artificial Tears (Artificial Tears) 2 drops QS OPB 03/15/17 08:00 04/14/17 07:59 03/16/17 16:42 2 DROPS Docusate Sodium (coLACE CAP) 100 mg BID PO 03/15/17 09:00 04/14/17 08:59 03/16/17 07:48 100 MG Isosorbide Mononitrate (Imdur Ext Rel Tab) 90 mg QAM PO 03/15/17 09:00 04/14/17 08:59 03/16/17 07:50 90 MG Meclizine HCl (Antivert Tab) 25 mg QAM PO 03/15/17 09:00 04/14/17 08:59 03/16/17 07:48 25 MG Senna/Docusate Sodium (Senokot S Tab) 1 tab DAILY PRN PO 03/15/17 04:45 04/14/17 04:44 03/16/17 07:47 1 TAB Tramadol HCl (Ultram Tab) 50 mg Q6 PRN PO 03/15/17 04:45 04/14/17 04:44 03/16/17 13:48 50 MG Ondansetron HCl (Zofran Inj) 4 mg Q6H PRN IV 03/15/17 04:45 04/14/17 04:44 Insulin Aspart (novoLOG ASPART) SLIDING SCALE If C... ACHS SC 03/15/17 07:00 04/14/17 06:59 03/16/17 12:15 3 UNITS Glucose (Glucose 40% Gel) UD PRN PO 03/15/17 04:45 04/14/17 04:44 Glucose (Glucose Chew Tab) 1 tabs UD PRN PO 03/15/17 04:45 04/14/17 04:44 Dextrose (Dextrose 50% 50ML Syringe) 50 ml UD PRN IV 03/15/17 04:45 04/14/17 04:44 Glucagon (Glucagon Inj) 1 mg UD PRN SQ 03/15/17 04:45 04/14/17 04:44 Miscellaneous (Iv Fluids Completed) 1 ea PRN PRN N/A 03/15/17 04:45 03/15/18 04:44 Miscellaneous Information (Consult Glycemic Management Pharmacy) 1 ea UD N/A 03/15/17 09:18 04/14/17 09:17 Benzonatate (Tessalon Perles Cap) 100 mg TID PRN PO 03/15/17 09:15 04/14/17 09:14 03/15/17 14:52 100 MG Insulin Glargine (Lantus Solostar Pen) HS SC 03/15/17 21:00 04/14/17 20:59 03/15/17 20:56 10 UNITS Heparin Sodium (Porcine) (Heparin Sq 5000 Unit/0.5ml) 5,000 unit Q8H SQ 03/15/17 22:00 04/14/17 21:59 03/16/17 13:47 5,000 UNIT Simvastatin (Zocor Tab) 40 mg HS PO 03/15/17 21:00 04/14/17 20:59 03/15/17 19:51 40 MG Bisacodyl (Dulcolax Supp) 10 mg NOW STAT MN 03/16/17 17:30 03/16/17 17:31 UNV Polyethylene (Miralax Powder Packet) 17 gm DAILY PO 03/17/17 09:00 04/16/17 08:59 UNV Ciprofloxacin (Cipro Tab) 500 mg NOW STAT PO 03/16/17 17:34 03/16/17 17:35 UNV Ciprofloxacin (Cipro Tab) 500 mg DAILY PO 03/17/17 09:00 03/22/17 08:59 UNV Objective Vital Signs Date Time Temp Pulse Resp B/P (MAP) Pulse Ox O2 Delivery O2 Flow Rate FiO2 03/16/17 16:00 95 Room Air 03/16/17 15:05 37.2 78 19 112/68 (83) 95 Room Air 03/16/17 12:06 36.8 86 19 125/57 (79) 92 Room Air 03/16/17 12:00 Room Air 03/16/17 08:00 93 Room Air 03/16/17 07:56 36.9 74 18 155/76 (102) 93 Room Air 03/16/17 04:05 36.9 75 18 132/68 (89) 95 Room Air 03/16/17 04:00 Room Air 03/15/17 23:59 Room Air 03/15/17 23:30 36.9 74 14 121/73 (89) 95 Room Air 03/15/17 20:00 Room Air 03/15/17 18:56 36.8 79 16 118/70 (86) 94 Room Air Physical Exam General Appearance: WD/WN, no apparent distress ENT: hearing grossly normal, pharynx normal Respiratory/Chest: lungs clear, no respiratory distress, no accessory muscle use Cardiovascular: regular rate, rhythm, no edema, no murmur, + pertinent finding (pain to palpation over sternum centrally) Abdomen: normal bowel sounds, no organomegaly, no pulsatile mass, + tenderness (RLQ and RMQ) Extremities: non-tender, no calf tenderness, normal capillary refill, + pertinent finding (mild spinous process tenderness, R costovertebral angle tender) Laboratory Results Results Past 24 Hours Test 03/15/17 20:01 03/15/17 20:47 03/16/17 05:38 03/16/17 07:24 Range/Units Bedside Glucose 174 163 70-90 mg/dl Total Creatine Kinase 35 26-192 U/L Creatine Kinase MB 0.8 0.5-3.6 ng/ml Creatine Kinase MB Ratio 2.3 0-3.0 Troponin I 0.017 0-0.045 ng/ml White Blood Count 7.32 4.8-10.8 K/uL Red Blood Count 4.01 4.2-5.4 M/uL Hemoglobin 10.3 12.0-16.0 g/dL Hematocrit 32.6 37-47 % Mean Corpuscular Volume 81.3 80-100 fL Mean Corpuscular Hemoglobin 25.7 25-34 pg Mean Corpuscular Hemoglobin Concent 31.6 32-36 g/dl Platelet Count 325 130-400 K/uL Mean Platelet Volume 9.1 7.4-10.4 fL Neutrophils (%) (Auto) 49.8 % Lymphocytes (%) (Auto) 30.3 % Monocytes (%) (Auto) 11.9 % Eosinophils (%) (Auto) 7.0 % Basophils (%) (Auto) 0.7 % Neutrophils # (Auto) 3.65 1.4-6.5 K/uL Lymphocytes # (Auto) 2.22 1.2-3.4 K/uL Monocytes # (Auto) 0.87 0.11-0.59 K/uL Eosinophils # (Auto) 0.51 0-0.5 K/uL Basophils # (Auto) 0.05 0-0.2 K/uL RDW Standard Deviation 54.3 36.4-46.3 fL RDW Coefficient of Variation 18.3 11.5-14.5 % Immature Granulocyte % (Auto) 0.3 % Immature Granulocyte # (Auto) 0.02 0.00-0.02 K/uL Prothrombin Time 11.0 9.0-12.0 SECONDS Prothromb Time International Ratio 1.0 0.9-1.1 Activated Partial Thromboplast Time 26.0 21.0-31.0 SECONDS Partial Thromboplastin Ratio 1.0 Sodium Level 139 136-145 mmol/L Potassium Level 3.6 3.5-5.1 mmol/L Chloride Level 103 98-107 mmol/L Carbon Dioxide Level 29 21-32 mmol/L Anion Gap 7.0 3-11 mmol/L Blood Urea Nitrogen 14 7-18 mg/dl Creatinine 1.50 0.60-1.20 mg/dl Est Creatinine Clear Calc Drug Dose 29.0 ml/min Estimated GFR () 37.5 Estimated GFR (Non- 32.3 BUN/Creatinine Ratio 9.6 10-20 Random Glucose 140 70-99 mg/dl Calcium Level 9.1 8.5-10.1 mg/dl Magnesium Level 2.7 1.8-2.4 mg/dl Test 03/16/17 12:02 03/16/17 16:14 03/16/17 16:43 Range/Units Bedside Glucose 218 138 70-90 mg/dl Urine Color YELLOW Urine Appearance CLEAR CLEAR Urine pH 8.0 4.5-7.5 Urine Specific [place] 1.011 1.000-1.030 Urine Protein NEG NEG Urine Glucose (UA) NEG NEG Urine Ketones NEG NEG Urine Occult Blood NEG NEG Urine Nitrite NEG NEG Urine Bilirubin NEG NEG Urine Urobilinogen NEG NEG Urine Leukocyte Esterase SMALL NEG Urine WBC (Auto) 5-10 0-5 /hpf Urine RBC (Auto) 0-4 0-4 /hpf Urine Hyaline Casts (Auto) 0 0-5 /lpf Urine Epithelial Cells (Auto) >30 0-5 /lpf Urine Bacteria (Auto) NEG NEG Assessment and Plan 82 yo F with Hx iof CAD s/p CABG, hx of AFib, CVA, CKD, Stage V presenting with Rt sided Chest pain radiating to R. arm with nonspecific EKG changes and negative troponins. On day 2 of hospital admission patient complained of abdominal pain which we are currently working up. Abdominal pain CT: Cholelithiasis without CT evidence of acute cholecystitis. HIDA scan ordered and wnl Abdominal XRAY with stool in rectal vault UA and Urine culture pending --> started patient on cipro PO CT was not done with IV contrast as patient has allergy to IV contrast so if pain persists tomorrow might be worth doing CT with oral contrast Order dulcolax [place] for stool clean out Chest Pain: - Central pleuritic Chest pain currently with palpable chest wall tenderness - negative D-Dimer, Negative Troponin, - PE, [place], unlikely given these findings - CT Chest: no airspace consolidation or pleural effusion, no acute infectious or inflammatory findings Anemia: - Iron Studies consistent with Iron Def. Anemia - Given IV Iron 300 mg loading dose - FOBT positive - Should go home on Iron supp T2DM: Glycemic cosult Paroxysmal Afib/ CAD -has been in NSR in the 70's - restarted Statin -Continue to monitor Anxiey /Depression - C/w Lexapro, Topiramate Back pain - tramadol Itchiness at night - benadryl Arthritis - prednisone 5mg daily DVT Prophylaxis - Start Heparin Diet - Type 2 DM diet Disposition -PTOT -Patient is as resident of [facility] DNR -- Resident Physician Supervision Note: I was present with PGY2 Dr. Jimmy Hyatt during the history and exam. I discussed the case with the resident and agree with the findings and plan as documented in the note. Any exceptions or clarifications are listed here: none. Pt still with abdominal pain. Mainly RLQ, mildly RUQ/epigastric. Also c/o back pain -- but this is chronic. Clear liquid diet makes the pain worse. NO emesis/nausea. VSS no fever gen - nad neck - no JVD heart - RRR lungs - CTA b/l abd - mild tenderness high epigastric area; scant tenderness RUQ; most tenderness is RLQ with palpation NO peritoneal signs NO rebound labs - mild anemia - Hb 10 BMP - Cr 1.5 LFTs nl A/P: abdominal pain - unclear etiology. gallstones present on CT but no signs of acute cholecystitis. HIDA Negative. check KUB x-ray -- r/o severe constipation as patient reported last bowel movement was painful and hard. check u/a and urine cx -- r/o UTI. check lipase in am. If no UTI and KUB negative then repeat the CT scan of abd/pelvis WITH oral contrast. patient continues to require ongoing hospitalization in light of limited PO intake and ongoing pain. Other medical problems stable. Documented By: Demario Baez MD Continued [facility] stay due to: multiple IV medications needed
[2017-03-16] MEDS ORDERED: BISACODYL 10 MG SUPP PR SCH (18:00)
[2017-03-16] MEDS ORDERED: CIPROFLOXACIN 500 MG TAB PO ONE (18:00)
[2017-03-16] MEDS: PANTOprazole SOD 40 MG TAB PO SCH (21:16)
[2017-03-16] MEDS: SIMVASTATIN 40 MG TAB PO SCH (21:16)
[2017-03-16] MEDS: INSULIN GLARGINE SOLOSTAR 100 UNITS/ML 3 ML PEN SC SCH (21:19)
[2017-03-17] VITALS (9 sets, daily range): BP systolic 120–157; BP diastolic 63–88; PULSE 75–93; TEMP 36.4–37.1; O2SAT 93–100
[2017-03-17] MEDS ORDERED: MoRPHine SULFATE 4 MG/ML 1 ML CARP\\VIAL IV STA (00:27)
[2017-03-17] MEDS: ONDANSETRON INJ 2 MG/ML 2 ML VIAL IV PRN (00:37)
[2017-03-17 05:35] LABS: HEMATOCRIT 30.5 % (37-47); MEAN CELL VOLUME 79.2 fL (80-100); MEAN CORPUSCULAR HEMOGLOBIN 25.5 pg (25-34); MEAN CORPUSCULAR HGB CONC 32.1 g/dl (32-36); MEAN PLATELET VOLUME 8.2 fL (7.4-10.4); PLATELET COUNT 268 K/uL (130-400); RED BLOOD COUNT 3.85 M/uL (4.2-5.4)
[2017-03-17] MEDS: HEPARIN SOD 5000 UNIT/0.5 ML CARP SQ SCH ×3 (06:05→21:55)
[2017-03-17 06:10] LABS: BASO % 0.4 %; BASO ABS # 0.03 K/uL (0-0.2); COMPLETE YES; EOS % 5.4 %; HYPERSEGMENTED POLYS OCCASIONAL; IG% 0.4 %; LYMPH % 31.7 %; LYMPH ABS # 2.57 K/uL (1.2-3.4); MONO % 11.2 %; NEUT % 50.9 %
[2017-03-17 06:24] LABS: ALKALINE PHOSPHATASE 44 U/L (45-117); ALT/SGPT 13 U/L (12-78); AST/SGOT 11 U/L (15-37); BLOOD UREA NITROGEN 15 mg/dl (7-18); BUN/CREATININE RATIO 11.7 (10-20); CALCIUM 9.1 mg/dl (8.5-10.1); CARBON DIOXIDE 27 mmol/L (21-32); CHLORIDE 102 mmol/L (98-107); GLUCOSE 121 mg/dl (70-99); POTASSIUM 2.7 mmol/L (3.5-5.1); SODIUM 137 mmol/L (136-145)
[2017-03-17] MEDS ORDERED: POTASSIUM CHLORIDE 10 MEQ TABCR PO STA (07:26)
[2017-03-17] MEDS: INSULIN ASPART 100 UNITS/ML 3 ML PEN SC SCH ×4 (07:35→21:54)
[2017-03-17] MEDS ORDERED: NURSING VERBAL MED ORDER ONE ×2 (07:45→23:00)
[2017-03-17] MEDS ORDERED: MoRPHine SULFATE 2 MG/ML CARP IV ONE (08:00)
[2017-03-17] MEDS: ARTIFICIAL TEARS OP SOLN OPB SCH ×4 (09:17→16:47)
[2017-03-17] MEDS: CIPROFLOXACIN 500 MG TAB PO SCH (09:18)
[2017-03-17] MEDS: DOCUSATE SODIUM 100 MG CAP PO SCH ×2 (09:18→20:58)
[2017-03-17] MEDS: ESCITALOPRAM OXALATE 20 MG TAB PO SCH (09:18)
[2017-03-17] MEDS: ISOSORBIDE MONONITRATE 30 MG TABCR PO SCH (09:18)
[2017-03-17] MEDS: POLYETHYLENE (MIRALAX) 17 GM PACK PO SCH (09:19)
[2017-03-17] MEDS: MECLIZINE HCL 25 MG TAB PO SCH (09:19)
[2017-03-17] MEDS: TOPIRAMATE 100 MG TAB PO SCH ×2 (09:19→20:56)
--- NOTE | 2017-03-17 09:53 | DIAGNOSTIC IMAGING REPORT ---
CT SCAN OF THE ABDOMEN AND PELVIS WITHOUT IV CONTRAST CLINICAL HISTORY: Generalized abdominal pain. COMPARISON STUDY: Abdominal CT scans dated 03/15/2017 and 05/27/2016. CT scan of the thoracic spine dated 12/30/2016. TECHNIQUE: CT scan of the abdomen and pelvis was performed from the lung bases to the proximal femora. Images are reviewed in the axial, sagittal, and coronal planes. IV contrast was not administered as per the referring clinician due to a reported history of contrast allergy. Note that the examination was performed in suboptimal without IV contrast. Automated dose control exposure was utilized. CT DOSE: 696.68 mGy.cm FINDINGS: Lower chest: The heart is normal in size and there is trace pericardial fluid. The coronary arteries are densely calcified. The lung bases are clear. Liver: The unenhanced liver is enlarged, measuring 21.6 cm in length. There is no intrahepatic or ductal dilatation. Gallbladder: Calcified gallstones are identified. The gallbladder is otherwise normal in appearance. Spleen: Normal in size and attenuation. Pancreas: The unenhanced pancreas is atrophic and grossly unremarkable. Adrenal glands: Unremarkable. Kidneys: The unenhanced kidneys are atrophic and without hydronephrosis. There are numerous small bilateral nonobstructing renal calculi. These measure up to 4 mm. No ureteral stone is seen. Right renal cysts measure up to 6.1 cm. A 1.6 cm hyperdense lesion in the left kidney on image #160 is unchanged and likely represents a complex/hemorrhagic cyst. Abdominal vasculature: The abdominal aorta is normal in course and caliber noting advanced atherosclerotic calcification. Stomach and bowel: There is a small hiatal hernia. The duodenum is normal in configuration. No bowel obstruction is seen. There are scattered colonic diverticula without CT evidence of acute diverticulitis. The appendix is well-visualized and normal. Peritoneum: There is no intraperitoneal free air or abdominal ascites. Lymphadenopathy: None. Pelvic viscera: The bladder is normal as visualized. The uterus is surgically absent. No adnexal lesion is seen. There is a fat-containing left inguinal hernia. Skeletal structures: The skeletal structures are osteopenic. There is moderate to advanced lumbosacral spondylosis. Degenerative change is also seen involving the sacroiliac joints and pubic symphysis. No lytic or blastic lesions are seen. Chronic fractures of T9, T10, T12, and L1 are unchanged from previous. There are healed rib fractures. The lumbar spine is otherwise intact. Grade 1 anterolisthesis is seen at L4-L5. IMPRESSION: 1. Suboptimal examination without IV contrast. 2. There are no acute infectious or inflammatory findings in the abdomen or pelvis, and there has been no significant change from study performed 2 days previously. 4. Small hiatal hernia. 5. Numerous chronic fractures as above. No acute fracture is seen. 6. Cholelithiasis without CT evidence of acute cholecystitis. 7. Small nonobstructing bilateral renal calculi. 8. Additional findings as above. Electronically signed by: Bobby Eugene M.D. 03/17/2017 9:52 AM Dictated Date/Time: 03/17/2017 9:44 AM
[2017-03-17] MEDS: MoRPHine SULFATE 2 MG/ML CARP IV PRN ×2 (11:17→21:18)
[2017-03-17] MEDS ORDERED: GABAPENTIN 100 MG CAP PO ONE (12:30)
[2017-03-17 12:48] LABS: POTASSIUM 2.9 mmol/L (3.5-5.1)
[2017-03-17 12:52] LABS: C-REACTIVE PROTEIN 2.56 mg/dl (0-0.29)
[2017-03-17] MEDS ORDERED: POTASSIUM CHLR 20 MEQ / WTR 20 MEQ in PREMIXED WATER 100 ML IV STA (16:00)
--- NOTE | 2017-03-17 16:16 | Family Medicine Progress Note ---
Progress Note Date of Service Mar 17, 2017. Subjective Pt evaluation today including: conversation w/ patient, physical exam, chart review, conversation w/ nursing consultant, review of inpatient medication list Pain: moderate to severe PO Intake: ice chips patient still having significant amount of abdominal pain the pain is made worse by eating excruciating RLQ pain w/ eating ice chips does not seem to make the pain worse was given 4mg of morphine yesterday evening due to pain had diarrhea last night with no blood says that this pain feels similar to shingles when she was here in the hospital last time Constitutional: + fever, + chills Respiratory: No cough, No sputum, No shortness of breath Cardiovascular: No chest pain, No palpitations Abdomen: + pain, + diarrhea, + constipation, No nausea, No vomiting Musculoskeletal: No joint pain, No muscle pain Female : No dysuria, No urinary frequency Skin: + itch (at night), No rash Medications Current Inpatient Medications Medications (Trade) Dose Ordered Sig/Phil Route Start Time Stop Time Status Last Admin Dose Admin Acetaminophen (Tylenol Tab) 650 mg Q4H PRN PO 03/15/17 04:45 04/14/17 04:44 Nitroglycerin (Nitrostat Tab) 0.4 mg UD PRN SL 03/15/17 04:45 04/14/17 04:44 Albuterol (Ventolin Hfa Inhaler) 2 puffs Q4 PRN INH 03/15/17 04:45 04/14/17 04:44 Diphenhydramine HCl (Benadryl Cap) 25 mg HS PO 03/15/17 21:00 04/14/17 20:59 03/16/17 21:16 25 MG Escitalopram Oxalate (Lexapro Tab) 20 mg DAILY PO 03/15/17 09:00 04/14/17 08:59 03/17/17 09:18 20 MG Pantoprazole Sodium (Protonix Tab) 40 mg QPM PO 03/15/17 21:00 04/14/17 20:59 03/16/17 21:16 40 MG Prednisone (PredniSONE TAB) 5 mg QAM PO 03/15/17 09:00 04/14/17 08:59 03/17/17 09:18 5 MG Topiramate (Topamax Tab) 200 mg BID PO 03/15/17 09:00 04/14/17 08:59 7/4/17 09:19 200 MG Artificial Tears (Artificial Tears) 2 drops QS OPB 03/15/17 08:00 04/14/17 07:59 03/17/17 09:17 2 DROPS Docusate Sodium (coLACE CAP) 100 mg BID PO 03/15/17 09:00 04/14/17 08:59 03/17/17 09:18 100 MG Isosorbide Mononitrate (Imdur Ext Rel Tab) 90 mg QAM PO 03/15/17 09:00 04/14/17 08:59 03/17/17 09:18 90 MG Meclizine HCl (Antivert Tab) 25 mg QAM PO 03/15/17 09:00 04/14/17 08:59 03/17/17 09:19 25 MG Senna/Docusate Sodium (Senokot S Tab) 1 tab DAILY PRN PO 03/15/17 04:45 04/14/17 04:44 03/16/17 07:47 1 TAB Tramadol HCl (Ultram Tab) 50 mg Q6 PRN PO 03/15/17 04:45 04/14/17 04:44 03/16/17 23:26 50 MG Ondansetron HCl (Zofran Inj) 4 mg Q6H PRN IV 03/15/17 04:45 04/14/17 04:44 03/17/17 00:37 4 MG Insulin Aspart (novoLOG ASPART) SLIDING SCALE If C... ACHS SC 03/15/17 07:00 04/14/17 06:59 03/17/17 11:24 5 UNITS Glucose (Glucose 40% Gel) UD PRN PO 03/15/17 04:45 04/14/17 04:44 Glucose (Glucose Chew Tab) 1 tabs UD PRN PO 03/15/17 04:45 04/14/17 04:44 Dextrose (Dextrose 50% 50ML Syringe) 50 ml UD PRN IV 03/15/17 04:45 04/14/17 04:44 Glucagon (Glucagon Inj) 1 mg UD PRN SQ 03/15/17 04:45 04/14/17 04:44 Miscellaneous (Iv Fluids Completed) 1 ea PRN PRN N/A 03/15/17 04:45 03/15/18 04:44 Miscellaneous Information (Consult Glycemic Management Pharmacy) 1 ea UD N/A 03/15/17 09:18 04/14/17 09:17 Benzonatate (Tessalon Perles Cap) 100 mg TID PRN PO 03/15/17 09:15 04/14/17 09:14 03/15/17 14:52 100 MG Insulin Glargine (Lantus Solostar Pen) HS SC 03/15/17 21:00 04/14/17 20:59 03/16/17 21:19 10 UNITS Heparin Sodium (Porcine) (Heparin Sq 5000 Unit/0.5ml) 5,000 unit Q8H SQ 03/15/17 22:00 04/14/17 21:59 03/17/17 14:12 5,000 UNIT Simvastatin (Zocor Tab) 40 mg HS PO 03/15/17 21:00 04/14/17 20:59 03/16/17 21:16 40 MG Polyethylene (Miralax Powder Packet) 17 gm DAILY PO 03/17/17 09:00 04/16/17 08:59 03/17/17 09:19 17 GM Ciprofloxacin (Cipro Tab) 500 mg DAILY PO 03/17/17 09:00 03/22/17 08:59 03/17/17 09:18 500 MG Potassium Chloride (Klor-Con Tab) 20 meq BID PO 03/18/17 09:00 04/17/17 08:59 Morphine Sulfate (MoRPHine SULFATE INJ) 2 mg Q2H PRN IV 03/17/17 08:00 03/31/17 07:59 03/17/17 11:17 2 MG Gabapentin (Neurontin Cap) 100 mg BID PO 03/17/17 21:00 04/16/17 20:59 Potassium Chloride 20 meq/ Prmx 100 ml @ 50 mls/hr NOW STAT IV 03/17/17 16:00 03/17/17 17:59 UNV Potassium Chloride (Klor-Con M10) 40 meq NOW ONCE PO 03/17/17 20:00 03/17/17 20:01 UNV Objective Vital Signs Date Time Temp Pulse Resp B/P (MAP) Pulse Ox O2 Delivery O2 Flow Rate FiO2 03/17/17 16:02 Room Air 03/17/17 12:00 Room Air 03/17/17 11:49 36.8 90 19 122/87 (99) 93 Room Air 03/17/17 08:10 36.7 77 18 131/63 (85) 97 Room Air 03/17/17 08:00 97 Room Air 03/17/17 04:35 36.7 83 19 125/70 (88) 95 Room Air 03/17/17 04:00 Room Air 03/17/17 00:01 Room Air 03/16/17 22:46 37.0 93 19 126/69 (88) 98 Room Air 03/16/17 20:01 37.0 77 18 114/64 (81) 97 03/16/17 19:45 Room Air Physical Exam General Appearance: WD/WN, no apparent distress Respiratory/Chest: lungs clear, no respiratory distress, no accessory muscle use Cardiovascular: no JVD, no murmur, + irregularly irregular Abdomen: normal bowel sounds, no organomegaly, no pulsatile mass, + tenderness (RLQ) Extremities: + pertinent finding (no spinous process tenderness but pain radiates around the back to the rigth costovertebral angle) Skin: normal color, warm/dry, no rash Laboratory Results Results Past 24 Hours Test 03/16/17 16:14 03/16/17 16:43 03/16/17 17:58 03/16/17 20:42 Range/Units Bedside Glucose 138 112 70-90 mg/dl Urine Color YELLOW Urine Appearance CLEAR CLEAR Urine pH 8.0 4.5-7.5 Urine Specific [place] 1.011 1.000-1.030 Urine Protein NEG NEG Urine Glucose (UA) NEG NEG Urine Ketones NEG NEG Urine Occult Blood NEG NEG Urine Nitrite NEG NEG Urine Bilirubin NEG NEG Urine Urobilinogen NEG NEG Urine Leukocyte Esterase SMALL NEG Urine WBC (Auto) 5-10 0-5 /hpf Urine RBC (Auto) 0-4 0-4 /hpf Urine Hyaline Casts (Auto) 0 0-5 /lpf Urine Epithelial Cells (Auto) >30 0-5 /lpf Urine Bacteria (Auto) NEG NEG Stool Occult Blood NEGATIVE NEGATIVE Test 03/17/17 05:24 03/17/17 06:36 03/17/17 11:16 03/17/17 12:14 Range/Units White Blood Count 8.10 4.8-10.8 K/uL Red Blood Count 3.85 4.2-5.4 M/uL Hemoglobin 9.8 12.0-16.0 g/dL Hematocrit 30.5 37-47 % Mean Corpuscular Volume 79.2 80-100 fL Mean Corpuscular Hemoglobin 25.5 25-34 pg Mean Corpuscular Hemoglobin Concent 32.1 32-36 g/dl Platelet Count 268 130-400 K/uL Mean Platelet Volume 8.2 7.4-10.4 fL Neutrophils (%) (Auto) 50.9 % Lymphocytes (%) (Auto) 31.7 % Monocytes (%) (Auto) 11.2 % Eosinophils (%) (Auto) 5.4 % Basophils (%) (Auto) 0.4 % Neutrophils # (Auto) 4.12 1.4-6.5 K/uL Lymphocytes # (Auto) 2.57 1.2-3.4 K/uL Monocytes # (Auto) 0.91 0.11-0.59 K/uL Eosinophils # (Auto) 0.44 0-0.5 K/uL Basophils # (Auto) 0.03 0-0.2 K/uL RDW Standard Deviation 52.2 36.4-46.3 fL RDW Coefficient of Variation 18.1 11.5-14.5 % Immature Granulocyte % (Auto) 0.4 % Immature Granulocyte # (Auto) 0.03 0.00-0.02 K/uL Hypersegmented Polys OCCASIONAL Sodium Level 137 136-145 mmol/L Potassium Level 2.7 2.9 3.5-5.1 mmol/L Chloride Level 102 98-107 mmol/L Carbon Dioxide Level 27 21-32 mmol/L Anion Gap 8.0 3-11 mmol/L Blood Urea Nitrogen 15 7-18 mg/dl Creatinine 1.30 0.60-1.20 mg/dl Est Creatinine Clear Calc Drug Dose 33.7 ml/min Estimated GFR () 44.6 Estimated GFR (Non- 38.4 BUN/Creatinine Ratio 11.7 10-20 Random Glucose 121 70-99 mg/dl Calcium Level 9.1 8.5-10.1 mg/dl Total Bilirubin 0.3 0.2-1 mg/dl Direct Bilirubin < 0.1 0-0.2 mg/dl Aspartate Amino Transf (AST/SGOT) 11 15-37 U/L Alanine Aminotransferase (ALT/SGPT) 13 12-78 U/L Alkaline Phosphatase 44 45-117 U/L Total Protein 6.5 6.4-8.2 gm/dl Albumin 2.9 3.4-5.0 gm/dl Lipase 60 73-393 U/L Bedside Glucose 132 197 70-90 mg/dl Erythrocyte Sedimentation Rate 57 0-21 mm/hr C-Reactive Protein 2.56 0-0.29 mg/dl Assessment and Plan 82 yo F with Hx iof CAD s/p CABG, hx of AFib, CVA, CKD, Stage V presenting with Rt sided Chest pain radiating to R. arm with nonspecific EKG changes and negative troponins. On day 2 of hospital admission patient complained of abdominal pain which we are currently working up. Abdominal pain - CT: Cholelithiasis without CT evidence of acute cholecystitis. - HIDA scan ordered and wnl - Abdominal XRAY with stool in rectal vault - UA negative for infection, stop cipro - CT of abdomen and pelvis with no acute changes - Patient on pantoprazole PO qpm - consulted GI for scope considering continued ab pain and iron deficiency anemia with positive FOBT Chest Pain: - Central pleuritic Chest pain currently with palpable chest wall tenderness - negative D-Dimer, Negative Troponin, - PE, OR, unlikely given these findings - CT Chest: no airspace consolidation or pleural effusion, no acute infectious or inflammatory findings Anemia: - Iron Studies consistent with Iron Def. Anemia - Given IV Iron 300 mg loading dose - FOBT positive - Should go home on Iron supp T2DM: - Glycemic consult Paroxysmal Afib/ CAD -has been in NSR in the 70's - restarted Statin -Continue to monitor Anxiey /Depression - C/w Lexapro, Topiramate Back pain - tramadol Itchiness at night - benadryl Arthritis - prednisone 5mg daily DVT Prophylaxis - Start Heparin Diet - Type 2 DM diet Disposition -PTOT -Patient is as resident of [facility] DNR -- Resident Physician Supervision Note: I was present with PGY2 Dr. Jimmy Hyatt during the history and exam. I discussed the case with the resident and agree with the findings and plan as documented in the note. Any exceptions or clarifications are listed here: exam does NOT reveal irregularly irregular heart rhythm but NSR. Pt continues with RLQ abdominal pain. Was severe overnight - required morphine for pain control. Worsened even by consumption of clear liquids but ice chips does not bother it. Had CT abd/pelvis this am with oral contrast. Following the latter had several episodes of diarrhea. No emesis. No overt rectal bleeding or melena. Continues with some back pain. NO recurrent chest pain. VSS no fever gen - nad, looks well sitting in chair neck - no JVD heart - RRR lungs - CTA b/l abd - tender RLQ with palpation; minimal high epigastric tenderness with palpation NO peritoneal signs NO rebound ext - no edema labs - Hb 9.8 BMP - Cr 1.3 K 2.7 lipase, lfts normal A/P: abdominal pain - unclear etiology despite large work-up to date. admitted for similar symptoms in 01/2016. seen by Sameer GUADARRAMA during that stay - etiology was not found. gallstones present on CT but no signs of acute cholecystitis. HIDA Negative. KUB x-ray unremarkable. repeat CT abd/pelvis again without acute pathology. u/a yesterday evening slightly dirty but doubt UTI as cause of symptoms. etiology?? will ask GI to consult given her iron deficiency anemia and continued symptoms. consider endoscopy (EGD/colonoscopy). due to diarrhea will check c. diff, but likely osmotic effect from oral contrast for CT scan. if work-up continues to be negative then consider -- 1. mesenteric ischemia (mesenteric duplex study) 2. non-GI causes - renal cysts, radicular pain from t-spine compression fractures (this should not cause pain with eating), etc 3. doubt cardiac as her pain is so low in the abdomen NPO after MN tonight for possible endoscopy tomorrow In my clinical judgment this beneficiary meets acute admission criteria, established by [facility], that includes being hospitalized through two midnights. Will change to full admission status Documented By: Demario Baez MD Continued [facility] stay due to: other
[2017-03-17] MEDS ORDERED: POTASSIUM CHLORIDE 10 MEQ TABCR PO ONE (16:30)
[2017-03-17] MEDS: POTASSIUM CHLR 10MEQ / WTR IV SCH ×2 (16:46→16:50)
[2017-03-17] MEDS: SIMVASTATIN 40 MG TAB PO SCH (20:56)
[2017-03-17] MEDS: PANTOprazole SOD 40 MG TAB PO SCH (20:59)
[2017-03-17] MEDS ORDERED: GABAPENTIN 100 MG CAP PO SCH (21:00)
[2017-03-17] MEDS: INSULIN GLARGINE SOLOSTAR 100 UNITS/ML 3 ML PEN SC SCH (21:53)
--- NOTE | 2017-03-17 21:54 | DIAGNOSTIC IMAGING REPORT ---
CT SCAN OF THE BRAIN WITHOUT IV CONTRAST CLINICAL HISTORY: Unspecified trauma. COMPARISON STUDY: Multiple prior CT scans of the brain, most recently dated 01/13/2017. TECHNIQUE: Unenhanced axial CT scan of the brain is performed from the vertex to the skull base. FINDINGS: Brain parenchyma: There are age-related involutional changes noting [id number] subcortical and periventricular microangiopathic change. There is no hemorrhage, mass effect, or evidence of acute territorial ischemia by CT criteria. Harris-white matter is preserved. No extra-axial fluid collection is seen. Ventricles, sulci, cisterns: Prominent secondary to involutional change. Intracranial vasculature: There is advanced atherosclerotic calcification of the cavernous carotid and vertebral arteries. Calvarium: The skeletal structures are osteopenic. There is no depressed calvarial fracture. Soft tissues: There is minimal posterior scalp hematoma. Sinuses and mastoids: The visualized paranasal sinuses are clear. The mastoid air cells are well pneumatized. Orbits: The bony orbits are grossly intact. There is a left ocular lens implant. IMPRESSION: 1. Age-related changes as above with no hemorrhage, mass effect, or evidence of acute territorial ischemia by CT criteria. 2. Small posterior scalp hematoma. No depressed calvarial fracture is seen. Electronically signed by: Bobby Eugene M.D. 03/17/2017 9:52 PM Dictated Date/Time: 03/17/2017 9:50 PM
--- NOTE | 2017-03-17 22:02 | DIAGNOSTIC IMAGING REPORT ---
CT SCAN OF THE CERVICAL SPINE CLINICAL HISTORY: Unspecified trauma. COMPARISON STUDY: Multiple prior CT scans of the cervical spine, most recently dated 12/30/2016. Chest CT dated 03/15/2017. TECHNIQUE: CT scan of the cervical spine is performed from the skull base to the upper thoracic spine. Images are reviewed in the axial, sagittal, and coronal planes. IV contrast was not administered for this examination. FINDINGS: Skeletal structures: The skeletal structures are osteopenic. There is no evidence of fracture or subluxation involving the cervical spine. There is a chronic compression deformity of C7. The C7 vertebral body is sclerotic. Minimally retropulsed fragments are again noted at this level. Vertebral body height is otherwise maintained. Minimal anterolisthesis is noted at C5-C6. Alignment is otherwise Preserved. Anterior osteophytes are noted throughout. The odontoid process and lateral masses are intact. The atlantoaxial articulation is preserved noting advanced productive degenerative change. The spinous processes appear intact. There is moderate to advanced multilevel cervical spondylosis. Uncovertebral and facet arthropathy contribute to neural foraminal stenosis at most levels. Intervertebral discs: Mild multilevel degenerative disc space narrowing is noted. Central canal: Posterior disc osteophyte complexes at C4-C5, C5-C6, and C6-C7 likely contribute to mild acquired compromise of the central canal. Soft tissues: The prevertebral and paraspinous soft tissues are within normal limits. There is atherosclerotic calcification of the carotid bulbs. Calvarium: The visualized calvarium at the skull base appears intact. Brain parenchyma: Partially visualized brain parenchyma the skull base is within normal limits noting age-related involutional change. Sinuses and mastoids: The visualized paranasal sinuses are clear. The mastoid air cells are well pneumatized. Lung apices: Pleural fluid is identified at the right apex. Imaged upper lobe lung parenchyma is otherwise clear as visualized. IMPRESSION: 1. There is no evidence of fracture or subluxation involving the cervical spine. 2. Osteopenia, a chronic compression deformity of C7, and spondylotic change as above. 3. Pleural fluid is identified at the right apex. This is new from the 03/15/[address] Electronically signed by: Bobby Eugene M.D. 03/17/2017 10:01 PM Dictated Date/Time: 03/17/2017 9:54 PM
--- NOTE | 2017-03-17 22:34 | Progress Note ---
Progress Note Date of Service Mar 17, 2017. Progress Note I was summoned to the floor at approximately 9pm as the pt had fallen getting up off the commode. She suffered some trauma to the back of her head and was also c/o CP which she felt was unrelated to the fall. The nursing staff had astutely placed her in a cervical collar. An EKG was obtained which did not reveal any acute ischemic changes. A CT head and neck was notable only for a scalp hematoma. We are pending a troponin at 11p as she does have documented CAD, We will hold heparin pending AM prophylaxis.
[2017-03-17] MEDS ORDERED: MoRPHine SULFATE 2 MG/ML CARP IV STA (23:00)
[2017-03-18] VITALS (9 sets, daily range): BP systolic 117–158; BP diastolic 59–86; PULSE 66–90; TEMP 36.7–37.1; O2SAT 93–97
[2017-03-18] MEDS: ARTIFICIAL TEARS OP SOLN OPB SCH ×8 (00:25→23:36)
[2017-03-18] MEDS: MoRPHine SULFATE 2 MG/ML CARP IV PRN ×4 (03:02→23:36)
[2017-03-18] MEDS: TRAMADOL HCL 50 MG TAB PO PRN (06:26)
[2017-03-18 07:26] LABS: HEMATOCRIT 30.1 % (37-47); MEAN CELL VOLUME 80.7 fL (80-100); MEAN CORPUSCULAR HEMOGLOBIN 25.5 pg (25-34); MEAN CORPUSCULAR HGB CONC 31.6 g/dl (32-36); MEAN PLATELET VOLUME 8.6 fL (7.4-10.4); PLATELET COUNT 286 K/uL (130-400); RED BLOOD COUNT 3.73 M/uL (4.2-5.4)
[2017-03-18 07:59] LABS: BUN/CREATININE RATIO 7.2 (10-20); CREATININE 1.4 mg/dl (0.60-1.20)
[2017-03-18] MEDS: INSULIN ASPART 100 UNITS/ML 3 ML PEN SC SCH ×4 (08:00→22:15)
[2017-03-18] MEDS: TOPIRAMATE 100 MG TAB PO SCH ×2 (08:06→21:59)
[2017-03-18] MEDS: MECLIZINE HCL 25 MG TAB PO SCH (08:07)
[2017-03-18] MEDS: DOCUSATE SODIUM 100 MG CAP PO SCH ×2 (08:07→20:00)
[2017-03-18] MEDS: CIPROFLOXACIN 500 MG TAB PO SCH (08:07)
[2017-03-18] MEDS: POLYETHYLENE (MIRALAX) 17 GM PACK PO SCH (08:08)
[2017-03-18] MEDS: ISOSORBIDE MONONITRATE 30 MG TABCR PO SCH (08:08)
[2017-03-18] MEDS: ESCITALOPRAM OXALATE 20 MG TAB PO SCH (08:08)
[2017-03-18] MEDS: POTASSIUM CHLORIDE 20 MEQ TABCR PO SCH ×2 (08:09→21:59)
[2017-03-18] MEDS ORDERED: DICYCLOMINE HCL 10 MG CAP PO ONE (09:01)
--- NOTE | 2017-03-18 12:36 | Gastrointestinal Consultation ---
Gastrointestinal Consultation Date of Consultation: Mar 18, 2017 Attending Physician: Demario Calloway Consulting Physician: Stephani Gonzales Reason for Consultation: Abd pain, decreased Hgb History of Present Illness Patient is a 82 year old female admitted for R sided chest discomfort w radiation to R arm. Cardiac workup negative. GI consulted for pt's c/o R sided abd pain, anemia. Pt reports she's had RLQ abd pain for many years, in fact was seen as a consult last year by Dr. Albarado w same complaints and her report of the pain being for last 5 yrs. She said as soon as she eats, she would have the RLQ abd pain. 2 CT abd/pelvis during this admission showed no acute processes. She has evidence of cholelithiasis but no cholecystitis. Appendix normal. She had a normal HIDA scan. Abd xray showed mild ileus. She denies any associated n/v, fever, chills. Admits usually initiating a BM is hard, and stools then may get loose. She is currently on Miralax and Colace for constipation. Last BM yesterday. Unfortunately last night she had a fall, CT showed scalp hematoma. She had hx of colonoscopy >10 yrs ago and report she had colon polyps. Previously also seen by Dr. Gonzalez, had EGD/EUS evals in 2015 - found to have gastritis and IPMN of pancreas. Regarding pt's anemia, Hgb been around 10 which had been her baseline since 2014. She is iron deficient, been given Venofer IV. Her FOBT was negative. Past Medical/Surgical History Medical Problems: (1) Acute head injury Status: Acute (2) Back pain Status: Acute (3) Back pain Status: Acute (4) Blind right eye Status: Chronic (5) Bruising Status: Acute (6) CHF (congestive heart failure) Status: Acute (7) Compression fracture Status: Acute (8) Contusion of right shoulder Status: Acute (9) Depression Status: Chronic (10) Depression Status: Acute (11) Elevated serum creatinine Status: Acute (12) Fall Status: Acute (13) Fall Status: Acute (14) Fecal retention Status: Acute (15) Fracture of fifth metacarpal bone of right hand Status: Acute (16) Fracture of thoracic transverse process Status: Acute (17) Generalized weakness Status: Acute (18) Headache Status: Acute (19) Intractable back pain Status: Acute (20) Intractable back pain Status: Acute (21) Intractable back pain Status: Acute (22) Left sided chest pain Status: Acute (23) Lumbar compression fracture Status: Acute (24) Multiple fractures of thoracic spine Status: Acute (25) Multiple fractures of thoracic spine Status: Acute (26) Multiple fractures of thoracic spine Status: Acute (27) Peripheral edema Status: Acute (28) Precordial chest pain Status: Acute (29) Right facial numbness Status: Acute (30) Right-sided chest wall pain Status: Acute (31) Suicide attempt by acetaminophen overdose Status: Acute (32) Tylenol overdose Status: Acute (33) Unstable angina Status: Acute (34) Urinary retention Status: Acute (35) Urinary retention Status: Acute Past Medical History: See above. Past Surgical History: CABG Family History Heart disease Myocardial infarction Social History Smoking Status: Unknown if Ever Smoked Alcohol Use: none Drug Use: none Marital Status: single Housing Status: lives alone Occupation Status: retired Allergies Coded Allergies: Iodinated Diagnostic Agents (Verified Allergy, Severe, ANAPHYLAXIS, 01/13/17 ) Lyons (Verified Allergy, Severe, RASH, HIVES, TROUBLE BREATHING, 01/13/17) Promethazine (Verified Allergy, Severe, HIVES, TROUBLE BREATHING, 01/13/17) Bupropion (Verified Allergy, Intermediate, RASH, 01/13/17) Diazepam (Verified Allergy, Intermediate, Rash, 01/13/17) Reported by PT. Erythromycin (Verified Allergy, Intermediate, RASH, 01/13/17) Iodine (Verified Allergy, Intermediate, RASH, HIVES, 01/13/17) Penicillins (Verified Allergy, Intermediate, RASH, 01/13/17) Phenytoin (Verified Allergy, Unknown, PT UNSURE, 01/13/17) Tamsulosin (Verified Adverse Reaction, Intermediate, DIZZINESS, 01/13/17) Current Medications Home Meds and Scripts Medications Dose Route/Sig Max Daily Dose Days Date Category Dose Instructions Potassium Chloride Er (Potassium Chloride Microencaps) 20 Meq Tab 2 Tab PO DAILY 03/15/17 Reported Miralax (Polyethylene Glycol 3350) 1 Pow Pow 17 Gm PO DAILY 03/15/17 Reported Lexapro (Escitalopram Oxalate) 20 Mg Tab 20 Mg PO DAILY 03/15/17 Reported Senna Plus (Sennosides-Docusate Sodium) 1 Tab Tab 1 Tab PO Q24H PRN 03/15/17 Reported Isosorbide Mononitrate ER (Isosorbide Mononitrate) 30 Mg Tabcr 90 Mg PO QAM 03/15/17 Reported 3 TABLET DOSE Artificial Tears (Sitkcljo-Lyvjvebihjza-Wmdlobfl) 1 Donavan Donavan 2 Drops OPB QS 03/15/17 Reported Tylenol (Acetaminophen) 325 Mg Tab 650 Mg PO Q6 PRN 03/15/17 Reported NOT TO EXCEED 3GM APAP/24HR Tylenol (Acetaminophen) 325 Mg Tab 650 Mg PO Q6 PRN 03/15/17 Reported DO NOT EXCEED 3GM APAP/24HR Lantus Solostar (Insulin Glargine) 100 Unit/Ml Inj 15 Units SC HS 01/13/17 Reported Ultram (Tramadol HCl) 50 Mg Tab 50 Mg PO Q6 PRN 01/13/17 Reported Ranexa (Ranolazine) 1,000 Mg Tab 1,000 Mg PO BID 12/30/16 Reported Meclizine Hcl 25 Mg Tab 25 Mg PO QAM 12/30/16 Reported Lasix (Furosemide) 80 Mg Tab 80 Mg PO BID 12/30/16 Reported Aggrenox 25-200 mg (Dipyridamole/Aspirin) 1 Cap Cap 1 Cap PO BID 12/30/16 Reported Prednisone 5 Mg Tab 5 Mg PO QAM 12/08/16 Reported Nitrostat (Nitroglycerin) 0.4 Mg Tab 0.4 Mg UT PRN 09/20/16 Reported PRN EVERY 5 MINUTES X3 FOR CHEST PAIN Benadryl Allergy (Diphenhydramine Hcl) 25 Mg Cap 25 Mg PO HS 09/20/16 Reported Fosamax (Alendronate Sodium) 70 Mg Tab 70 Mg PO WK 09/08/16 Reported TAKE ON SATURDAYS. TAKE 30 MIN PRIOR TO FOOD/OTHER MEDS. REMAIN UPRIGHT FOR AT LEAST 30 MINS. Ventolin Hfa (Albuterol) 200 Puffs/73019 Mcg Aers 1-2 Puffs INH Q4 PRN 08/12/16 Reported Oscal 500/200 D-3 (Calcium Carbonate-Vitamin D) 1 Tab Tab 1 Tab PO AMPM 08/12/16 Reported TAKE WITH BREAKFAST & SUPPER Colace (Docusate Sodium) 100 Mg Cap 100 Mg PO BID 08/12/16 Reported Protonix (Pantoprazole Sodium) 40 Mg Tab 40 Mg PO QPM 08/12/16 Reported Zocor (Simvastatin) 40 Mg Tab 40 Mg PO HS 08/12/16 Reported Topamax (Topiramate) 200 Mg Tab 200 Mg PO BID 08/12/16 Reported Review of Systems Constitutional: No fever, No chills Respiratory: No cough, No shortness of breath Cardiac: No chest pain Abdomen: + see HPI, + pain, + constipation, No nausea, No vomiting, No GI bleeding Skin: No rash, No itch, No jaundice Physical Exam Date Time Temp Pulse Resp B/P (MAP) Pulse Ox O2 Delivery O2 Flow Rate FiO2 03/18/17 12:03 36.9 89 18 158/72 (100) 95 03/18/17 08:04 86 20 124/65 (84) 95 Room Air 03/18/17 08:00 95 Room Air 03/18/17 07:51 37.0 66 20 117/59 (78) 96 03/18/17 04:00 Room Air 03/18/17 03:45 36.7 90 18 127/69 (88) 93 Room Air 03/17/17 23:59 Room Air 03/17/17 22:55 36.9 84 19 151/88 (109) 100 Nasal Cannula 3.0 03/17/17 21:45 155/87 (109) 03/17/17 21:22 93 157/77 (103) 96 Room Air 03/17/17 20:00 Room Air 03/17/17 18:45 37.1 75 18 137/65 (89) 97 Room Air 03/17/17 16:02 Room Air 03/17/17 15:09 36.4 87 18 120/68 (85) 96 Room Air General Appearance: WD/WN, no apparent distress Eyes: normal inspection, PERRL, EOMI Neck: supple, no JVD, trachea midline Respiratory/Chest: normal breath sounds, no respiratory distress, no accessory muscle use Cardiovascular: regular rate, rhythm, no gallop, no murmur Abdomen: normal bowel sounds, soft, + tenderness (Generalized. ) Neurologic/Psych: alert, normal mood/affect, oriented x 3 Skin: normal color, no jaundice, no rash Laboratory Results Last 24 Hours Test 03/17/17 16:15 03/17/17 19:47 03/17/17 23:02 03/18/17 06:20 Bedside Glucose 217 mg/dl 183 mg/dl 205 mg/dl Troponin I < 0.015 ng/ml Test 03/18/17 07:07 03/18/17 11:27 White Blood Count 9.90 K/uL Red Blood Count 3.73 M/uL Hemoglobin 9.5 g/dL Hematocrit 30.1 % Mean Corpuscular Volume 80.7 fL Mean Corpuscular Hemoglobin 25.5 pg Mean Corpuscular Hemoglobin Concent 31.6 g/dl RDW Standard Deviation 53.4 fL RDW Coefficient of Variation 18.2 % Platelet Count 286 K/uL Mean Platelet Volume 8.6 fL Sodium Level 137 mmol/L Potassium Level 4.0 mmol/L Chloride Level 105 mmol/L Carbon Dioxide Level 23 mmol/L Anion Gap 9.0 mmol/L Blood Urea Nitrogen 10 mg/dl Creatinine 1.40 mg/dl Est Creatinine Clear Calc Drug Dose 31.1 ml/min Estimated GFR () 40.7 Estimated GFR (Non- 35.1 BUN/Creatinine Ratio 7.2 Random Glucose 197 mg/dl Calcium Level 9.0 mg/dl Bedside Glucose 224 mg/dl Impression Patient is a 82 year old female seen for chronic abd pain specifically on RLQ almost postprandially. Previously suspected to be related to constipation which she admits she still has, and recent xray showed mild ileus. CT abd/pelvis w/o acute processes, + cholelithiasis w/o cholecystitis. HIDA scan normal. She also has iron deficiency anemia, Hgb at baseline around 10, FOBT negative. Plan - Monitor H/H and transfuse prn. Supplement w iron - Trial Dicyclomine 10mg BID - Restart diet - Limit narcotics. Will consider Relistor use if no regular BM - Given fall last night, and chronic abd pain symptoms, will defer inpt workup; may f/u w GI clinic upon DC and discuss possible colonoscopy at f/u. late entry: Patient was seen and examined on 03/18 with jd Hanks. Her note reflects our findings and plan.
--- NOTE | 2017-03-18 13:35 | Family Medicine Progress Note ---
Progress Note Date of Service Mar 18, 2017. Subjective Pt evaluation today including: conversation w/ patient, conversation w/ family , conversation w/ [employer] consultant, review of inpatient medication list Pain: moderate-severe Voiding: no voiding problems Patient fell and hit her head yesterday when getting off the commode. Tele showed that she was vidal in the 30's when this happened. CT of her head showed a scalp hematoma. EKG did not show any ischaemic changes, heparin was held and trop was negative She continues to have pain in her breasts, head, back and abdomen When asked where the pain is worst she says in her back She says she had diarrhea yesterday evening but did not notice if there was any blood Constitutional: + weakness, No fever, No chills, No sweats Respiratory: No cough, No sputum, No shortness of breath Cardiovascular: No chest pain Abdomen: + pain, + diarrhea, No nausea, No vomiting, No constipation Musculoskeletal: + joint pain Female : No dysuria, No urinary frequency Skin: + itch, No rash, No new/changing skin lesions Medications Current Inpatient Medications Medications (Trade) Dose Ordered Sig/Phil Route Start Time Stop Time Status Last Admin Dose Admin Acetaminophen (Tylenol Tab) 650 mg Q4H PRN PO 03/15/17 04:45 04/14/17 04:44 03/18/17 11:19 650 MG Nitroglycerin (Nitrostat Tab) 0.4 mg UD PRN SL 03/15/17 04:45 04/14/17 04:44 Albuterol (Ventolin Hfa Inhaler) 2 puffs Q4 PRN INH 03/15/17 04:45 04/14/17 04:44 Diphenhydramine HCl (Benadryl Cap) 25 mg HS PO 03/15/17 21:00 04/14/17 20:59 03/17/17 20:59 25 MG Escitalopram Oxalate (Lexapro Tab) 20 mg DAILY PO 03/15/17 09:00 04/14/17 08:59 03/18/17 08:08 20 MG Pantoprazole Sodium (Protonix Tab) 40 mg QPM PO 03/15/17 21:00 04/14/17 20:59 03/17/17 20:59 40 MG Prednisone (PredniSONE TAB) 5 mg QAM PO 03/15/17 09:00 04/14/17 08:59 03/18/17 08:07 5 MG Topiramate (Topamax Tab) 200 mg BID PO 03/15/17 09:00 04/14/17 08:59 03/18/17 08:06 200 MG Artificial Tears (Artificial Tears) 2 drops QS OPB 03/15/17 08:00 04/14/17 07:59 03/18/17 08:05 2 DROPS Docusate Sodium (coLACE CAP) 100 mg BID PO 03/15/17 09:00 04/14/17 08:59 03/17/17 20:58 100 MG Isosorbide Mononitrate (Imdur Ext Rel Tab) 90 mg QAM PO 03/15/17 09:00 04/14/17 08:59 03/18/17 08:08 90 MG Meclizine HCl (Antivert Tab) 25 mg QAM PO 03/15/17 09:00 04/14/17 08:59 03/18/17 08:07 25 MG Senna/Docusate Sodium (Senokot S Tab) 1 tab DAILY PRN PO 03/15/17 04:45 04/14/17 04:44 03/16/17 07:47 1 TAB Tramadol HCl (Ultram Tab) 50 mg Q6 PRN PO 03/15/17 04:45 04/14/17 04:44 03/18/17 06:26 50 MG Ondansetron HCl (Zofran Inj) 4 mg Q6H PRN IV 03/15/17 04:45 04/14/17 04:44 03/17/17 00:37 4 MG Insulin Aspart (novoLOG ASPART) SLIDING SCALE If C... ACHS SC 03/15/17 07:00 04/14/17 06:59 03/18/17 12:01 9 UNITS Glucose (Glucose 40% Gel) UD PRN PO 03/15/17 04:45 04/14/17 04:44 Glucose (Glucose Chew Tab) 1 tabs UD PRN PO 03/15/17 04:45 04/14/17 04:44 Dextrose (Dextrose 50% 50ML Syringe) 50 ml UD PRN IV 03/15/17 04:45 04/14/17 04:44 Glucagon (Glucagon Inj) 1 mg UD PRN SQ 03/15/17 04:45 04/14/17 04:44 Miscellaneous (Iv Fluids Completed) 1 ea PRN PRN N/A 03/15/17 04:45 03/15/18 04:44 Miscellaneous Information (Consult Glycemic Management Pharmacy) 1 ea UD N/A 03/15/17 09:18 04/14/17 09:17 Benzonatate (Tessalon Perles Cap) 100 mg TID PRN PO 03/15/17 09:15 04/14/17 09:14 03/15/17 14:52 100 MG Simvastatin (Zocor Tab) 40 mg HS PO 03/15/17 21:00 04/14/17 20:59 03/17/17 20:56 40 MG Polyethylene (Miralax Powder Packet) 17 gm DAILY PO 03/17/17 09:00 04/16/17 08:59 03/17/17 09:19 17 GM Ciprofloxacin (Cipro Tab) 500 mg DAILY PO 03/17/17 09:00 03/22/17 08:59 03/18/17 08:07 500 MG Potassium Chloride (Klor-Con Tab) 20 meq BID PO 03/18/17 09:00 04/17/17 08:59 03/18/17 08:09 20 MEQ Morphine Sulfate (MoRPHine SULFATE INJ) 2 mg Q2H PRN IV 03/17/17 08:00 03/31/17 07:59 03/18/17 11:57 2 MG Dicyclomine HCl (Bentyl Cap) 10 mg BID PO 03/18/17 21:00 04/17/17 20:59 Insulin Glargine (Lantus Solostar Pen) 15 units HS SC 03/18/17 21:00 04/17/17 20:59 Lidocaine (Lidoderm Patch 5%) 3 patch QAM TD 03/19/17 09:00 04/18/17 08:59 Miscellaneous (Remove Lidoderm Patch) 1 ea DAILY@21 N/A 03/18/17 21:00 04/17/17 20:59 Ferrous Sulfate (Feosol Tab) 325 mg BIDM PO 03/18/17 16:45 04/17/17 16:44 Objective Vital Signs Date Time Temp Pulse Resp B/P (MAP) Pulse Ox O2 Delivery O2 Flow Rate FiO2 03/18/17 12:03 36.9 89 18 158/72 (100) 95 03/18/17 08:04 86 20 124/65 (84) 95 Room Air 03/18/17 08:00 95 Room Air 03/18/17 07:51 37.0 66 20 117/59 (78) 96 03/18/17 04:00 Room Air 03/18/17 03:45 36.7 90 18 127/69 (88) 93 Room Air 03/17/17 23:59 Room Air 03/17/17 22:55 36.9 84 19 151/88 (109) 100 Nasal Cannula 3.0 03/17/17 21:45 155/87 (109) 03/17/17 21:22 93 157/77 (103) 96 Room Air 03/17/17 20:00 Room Air 03/17/17 18:45 37.1 75 18 137/65 (89) 97 Room Air 03/17/17 16:02 Room Air 03/17/17 15:09 36.4 87 18 120/68 (85) 96 Room Air Physical Exam General Appearance: WD/WN, + mild distress, + pertinent finding (laying flat in bed and does not want to move around very much) Respiratory/Chest: chest non-tender, lungs clear, no respiratory distress, no accessory muscle use Cardiovascular: regular rate, rhythm, no JVD, no murmur Abdomen: normal bowel sounds, no organomegaly, no pulsatile mass, + tenderness (tender in RLQ and LLQ) Extremities: + pertinent finding (no paraspinal tenderness, but has pain along lumbar spine posteriorly) Neurologic/Psychiatric: alert, normal mood/affect, oriented x 3 Skin: normal color, warm/dry, no rash Laboratory Results Results Past 24 Hours Test 03/17/17 16:15 03/17/17 19:47 03/17/17 23:02 03/18/17 06:20 Range/Units Bedside Glucose 217 183 205 70-90 mg/dl Troponin I < 0.015 0-0.045 ng/ml Test 03/18/17 07:07 03/18/17 11:27 Range/Units White Blood Count 9.90 4.8-10.8 K/uL Red Blood Count 3.73 4.2-5.4 M/uL Hemoglobin 9.5 12.0-16.0 g/dL Hematocrit 30.1 37-47 % Mean Corpuscular Volume 80.7 80-100 fL Mean Corpuscular Hemoglobin 25.5 25-34 pg Mean Corpuscular Hemoglobin Concent 31.6 32-36 g/dl RDW Standard Deviation 53.4 36.4-46.3 fL RDW Coefficient of Variation 18.2 11.5-14.5 % Platelet Count 286 130-400 K/uL Mean Platelet Volume 8.6 7.4-10.4 fL Sodium Level 137 136-145 mmol/L Potassium Level 4.0 3.5-5.1 mmol/L Chloride Level 105 98-107 mmol/L Carbon Dioxide Level 23 21-32 mmol/L Anion Gap 9.0 3-11 mmol/L Blood Urea Nitrogen 10 7-18 mg/dl Creatinine 1.40 0.60-1.20 mg/dl Est Creatinine Clear Calc Drug Dose 31.1 ml/min Estimated GFR () 40.7 Estimated GFR (Non- 35.1 BUN/Creatinine Ratio 7.2 10-20 Random Glucose 197 70-99 mg/dl Calcium Level 9.0 8.5-10.1 mg/dl Bedside Glucose 224 70-90 mg/dl Assessment and Plan 82 yo F with Hx iof CAD s/p CABG, hx of AFib, CVA, CKD, Stage V presenting with Rt sided Chest pain radiating to R. arm with nonspecific EKG changes and negative troponins. On day 2 of hospital admission patient complained of abdominal pain which we are currently working up. Back pain - hx of multiple rib fractures and spinal compression fractures - patient fell again and now complaining of new back pain - will image lumbar and thoracic spine to check for new acute fractures - is receiving tramadol and morphine 2mg q2 prn Abdominal pain - CT: Cholelithiasis without CT evidence of acute cholecystitis. - HIDA scan ordered and wnl - Abdominal XRAY with stool in rectal vault - UA negative for infection, - CT of abdomen and pelvis with no acute changes - Patient on pantoprazole PO qpm - consulted GI for scope considering continued ab pain and iron deficiency anemia------> will see patient as outpatient, started dicyclomine and ferrous sulfate Chest Pain: - Central pleuritic Chest pain currently with palpable chest wall tenderness - negative D-Dimer, Negative Troponin, - PE, OR, unlikely given these findings - CT Chest: no airspace consolidation or pleural effusion, no acute infectious or inflammatory findings Anemia: - Iron Studies consistent with Iron Def. Anemia - Given IV Iron 300 mg loading dose - Started ferrous sulfate 325mg bid - Should go home on Iron supp T2DM: - Glycemic consult Paroxysmal Afib/ CAD -has been in NSR in the 70's - restarted Statin -Continue to monitor Anxiey /Depression - C/w Lexapro, Topiramate Itchiness at night - benadryl Arthritis - prednisone 5mg daily DVT Prophylaxis - Start Heparin Diet - Type 2 DM diet Disposition -PTOT -Patient is as resident of [facility] DNR -- Resident Physician Supervision Note: I was present with PGY2 Dr. Jimmy Hyatt during the history and exam. I discussed the case with the resident and agree with the findings and plan as documented in the note. Any exceptions or clarifications are listed here: patient with CKD stage 3, not stage 5. Events of overnight reviewed. At the time of her fall she had bradycardia to the mid 30s but no block or pauses. HR went back to >60 within seconds. Pt did NOT have loss of consciousness during her fall. Did not have dizziness/ lightheadedness. Pt states she struggled to stand from the commode due to pain in her back, abdomen, etc. This am on bedside rounds she complains of pain in her low back along with her abdomen on the right side. No change in location of abdominal pain. Eating is still poor. No further diarrhea. VSS no fever gen - sleeping soundly/comfortably upon arrival; awakens to name being called; immediately c/o pain in low back neck - no JVD heart - RRR lungs - CTA b/l abd - minimally tender RLQ with palpation; slightly distended today; BS+ ext - no edema labs - Hb 9.5 BMP - Cr 1.4 K normal troponin negative once again A/P: 1. abdominal pain - unclear etiology despite large work-up to date. admitted for similar symptoms in 01/2016. seen by [facility] during that stay - etiology was not found. gallstones present on CT but no signs of acute cholecystitis. HIDA Negative. KUB x-ray unremarkable. CT abd/pelvis x 2 this admission w/o pathology. Appreciate [facility] consultation today. Bentyl ordered. Bowel regimen recommended. Deferring on inpatient EGD/colonoscopy but possibly as outpatient. 2. fall last evening - likely accidental, but was it directly due to a vagal event? (was struggling to get off the commode and had sinus bradycardia transiently at time of fall; no loss of consciousness or dizziness). Now with back pain. See below. CT head neg; CT c-spine with chronic findings only. 3. lumbar back pain - acute/chronic - repeat her L-spine and T-spine x-rays today - r/o new compression Fx's. Try nucynta in mendoza of tramadol. Try to hold the morphine for now. Osmany Mcdonnell consult for consideration of brace. other chronic medical problems stable Documented By: Demario Baez MD Continued [facility] stay due to: inadequate oral pain control, ambulation difficulties
--- NOTE | 2017-03-18 13:55 | DIAGNOSTIC IMAGING REPORT ---
THORACIC SPINE 3 VIEWS ROUTINE, L-SPINE MIN 4 VIEWS ROUTINE CLINICAL HISTORY: 82 year-old Female presenting with possible new compression fx. TECHNIQUE: 3 views of the thoracic spine and frontal, lateral, and bilateral oblique views of the lumbar spine were obtained. COMPARISON: Correlation made to CT of the abdomen and pelvis from 03/17/[address] of the thoracolumbar spine from 12/30/2016. FINDINGS: Thoracic spine: Diffuse osteopenia. Multilevel degenerative changes of the thoracic spine. Vertebral body height is grossly maintained. Alignment is also grossly maintained allowing for image quality. Known nonunited fractures of the two adjacent mid to lower thoracic vertebral bodies are incompletely characterized. No new compression deformity. Extensive atherosclerosis of the aorta. Lumbar spine: Diffuse osteopenia. Persistent vertebral body height loss of T12. A more subtle compression deformity at L1 is again noted. These are not significantly changed since the prior CT from December. Persistent grade 1 anterolisthesis of L4 on L5. Overall alignment is otherwise maintained. Extensive facet arthropathy predominating in the lower lumbar region. Dense stool throughout the colon may suggest prior contrast administration. No gross evidence of bowel obstruction. IMPRESSION: 1. No convincing evidence of new compression deformity within limitation of image quality. 2. Chronic deformities of several vertebral bodies as described above, including chronic compression deformities of T12 and L1. Electronically signed by: Mahamed Telles 03/18/2017 1:54 PM Dictated Date/Time: 03/18/2017 1:40 PM
--- NOTE | 2017-03-18 14:19 | Pharmacy Progress Note ---
Glycemic Control Progress Note Date of Service Mar 18, 2017. Scope Glycemic Pharmacist consulted for glycemic control to write orders per [facility] inpatient glycemic control protocol. Objective Accuchecks BSG (last 24hrs): Test 03/17/17 16:15 03/17/17 19:47 03/18/17 06:20 03/18/17 07:07 Bedside Glucose 217 mg/dl (70-90) 183 mg/dl (70-90) 205 mg/dl (70-90) Random Glucose 197 mg/dl (70-99) Test 03/18/17 11:27 Bedside Glucose 224 mg/dl (70-90) Recent Pertinent Medications The patient is currently receiving: * Basal insulin: * Lantus 10 units every 24 hours * Bolus Insulin: * NovoLog Correction per scale ACHS * Goal Range: Low 110 mg/dL - High 140 mg/dL * Correction Factor: 30 mg/dL/unit * Carb ratio of 1 unit per 10 grams CHO consumed Outpatient Anti-Diabetic Meds Lantus 15 units SQ q HS Prednisone 5mg PO daily Assessment & Plan ASSESSMENT: * See progress note from 03/15/17 for more background info, in short: * Pt receiving SQ basal/bolus insulin regimen for hyperglycemia secondary to baseline DM (outpatient regimen on hold), steroids * Patient is currently receiving an average of 22 units of insulin per day * 10 units of basal insulin * 12 units of prandial/correctional insulin * BSGs ranging 121 - 217 mg/dl over the past 24hrs * Changes needed to insulin regimen: * AM Fasting BSG = 207 mg/dl. This is in slightly above goal range for patient based on inpatient targets and co-morbidities. Therefore Basal insulin needs increased (to home dosing) * Post-prandial BSGs are elevated/BSGs rise throughout the day therefore need to tighten CF/CR PLAN FOR INPATIENT GLYCEMIC CONTROL: * Basal insulin * Lantus increased to 15 units SQ BID * Bolus insulin * NovoLog per scale ACHS or Q6hrs while NPO * Goal Range: Low 110 mg/dL - High 140 mg/dL * Correction Factor: 25 mg/dL/unit * Carb ratio of 1 unit per 8 grams CHO consumed RECOMMENDATIONS FOR DISCHARGE: * Likely, Ms Hou can continue her home regimen at discharge. * Please note that the plan above was derived based on current level of insulin resistance and hospital stress. These recommendations are appropriate for inpatient admission only. Plan of care upon discharge will need to be reassessed to avoid potential outpatient hypo/hyperglycemia. Thank you.
[2017-03-18] MEDS: TAPENTADOL HCL 50 MG TAB PO PRN ×2 (16:34→22:19)
[2017-03-18] MEDS: FERROUS SULFATE 325 MG TAB PO SCH (21:58)
[2017-03-18] MEDS: PANTOprazole SOD 40 MG TAB PO SCH (21:59)
[2017-03-18] MEDS: DICYCLOMINE HCL 10 MG CAP PO SCH (22:00)
[2017-03-18] MEDS: SIMVASTATIN 40 MG TAB PO SCH (22:00)
[2017-03-18] MEDS: INSULIN GLARGINE SOLOSTAR 100 UNITS/ML 3 ML PEN SC SCH (22:16)
[2017-03-19 00:12] VITALS: BP 145/79; PULSE 91; TEMP 37.3; O2SAT 95
[2017-03-19] MEDS: TAPENTADOL HCL 50 MG TAB PO PRN ×2 (04:58→16:06)
[2017-03-19 08:00] VITALS: BP 110/69; PULSE 98; TEMP 37; O2SAT 94
[2017-03-19] MEDS: ESCITALOPRAM OXALATE 20 MG TAB PO SCH (08:57)
[2017-03-19] MEDS: DOCUSATE SODIUM 100 MG CAP PO SCH ×2 (08:57→20:09)
[2017-03-19] MEDS: TOPIRAMATE 100 MG TAB PO SCH ×2 (08:58→20:08)
[2017-03-19] MEDS: ISOSORBIDE MONONITRATE 30 MG TABCR PO SCH (08:58)
[2017-03-19] MEDS: MECLIZINE HCL 25 MG TAB PO SCH (08:58)
[2017-03-19] MEDS: POTASSIUM CHLORIDE 20 MEQ TABCR PO SCH ×2 (08:59→20:09)
[2017-03-19] MEDS: POLYETHYLENE (MIRALAX) 17 GM PACK PO SCH ×9 (08:59→23:48)
[2017-03-19] MEDS: FERROUS SULFATE 325 MG TAB PO SCH ×2 (09:00→17:33)
[2017-03-19] MEDS: DICYCLOMINE HCL 10 MG CAP PO SCH ×2 (09:00→20:07)
[2017-03-19] MEDS: ARTIFICIAL TEARS OP SOLN OPB SCH ×6 (09:01→23:49)
[2017-03-19] MEDS: LIDODERM (LIDOCAINE) PATCH 5% TD SCH (09:02)
[2017-03-19] MEDS: INSULIN ASPART 100 UNITS/ML 3 ML PEN SC SCH ×4 (09:12→21:02)
[2017-03-19] MEDS: MoRPHine SULFATE 2 MG/ML CARP IV PRN (09:57)
--- NOTE | 2017-03-19 10:30 | DIAGNOSTIC IMAGING REPORT ---
KUB CLINICAL HISTORY: 82 years-old Female presenting with re-eval ileus. TECHNIQUE: Single supine AP view of the abdomen was obtained. COMPARISON: Correlation made to CT from 03/17/2017. FINDINGS: Residual oral contrast noted in the bowel. No evidence of bowel distention to suggest ileus or bowel obstruction. No gross free intraperitoneal gas. Atherosclerosis. Diffuse degenerative changes of the lumbar spine. Blunting of the right costophrenic angle, possibly trace effusion. Lung bases otherwise clear. IMPRESSION: 1. No evidence of ileus or bowel obstruction. Electronically signed by: Mahamed Telles 03/19/2017 10:29 AM Dictated Date/Time: 03/19/2017 10:25 AM
[2017-03-19] MEDS ORDERED: TAPENTADOL 150 MG PO ONE (10:59)
[2017-03-19] MEDS ORDERED: METHYLNALTREXONE BROMIDE INJ 12 MG/0.6 ML SYR SQ SCH (11:00)
--- NOTE | 2017-03-19 11:23 | Gastroenterology Progress Note ---
Progress Note Date of Service: Mar 19, 2017 Subjective Pt evaluation today including: conversation w/ patient, physical exam, chart review, lab review, review of inpatient medication list Pt sitting up in chair c/o severe abd pain across lower abd area. She is not passing much flatus, denies any n/v. She said it's probably "gas pain". Last BM 2 days ago. Review of Systems Constitutional: No fever, No chills Respiratory: No cough Cardiac: No chest pain Abdomen: + see HPI, + pain, No nausea, No vomiting Medications Current Inpatient Medications Medications (Trade) Dose Ordered Sig/Phil Route Start Time Stop Time Status Last Admin Dose Admin Acetaminophen (Tylenol Tab) 650 mg Q4H PRN PO 03/15/17 04:45 04/14/17 04:44 03/18/17 11:19 650 MG Nitroglycerin (Nitrostat Tab) 0.4 mg UD PRN SL 03/15/17 04:45 04/14/17 04:44 Albuterol (Ventolin Hfa Inhaler) 2 puffs Q4 PRN INH 03/15/17 04:45 04/14/17 04:44 Diphenhydramine HCl (Benadryl Cap) 25 mg HS PO 03/15/17 21:00 04/14/17 20:59 03/18/17 22:00 25 MG Escitalopram Oxalate (Lexapro Tab) 20 mg DAILY PO 03/15/17 09:00 04/14/17 08:59 03/19/17 08:57 20 MG Pantoprazole Sodium (Protonix Tab) 40 mg QPM PO 03/15/17 21:00 04/14/17 20:59 03/18/17 21:59 40 MG Prednisone (PredniSONE TAB) 5 mg QAM PO 03/15/17 09:00 04/14/17 08:59 03/19/17 08:58 5 MG Topiramate (Topamax Tab) 200 mg BID PO 03/15/17 09:00 04/14/17 08:59 03/19/17 08:58 200 MG Artificial Tears (Artificial Tears) 2 drops QS OPB 03/15/17 08:00 04/14/17 07:59 03/19/17 09:01 2 DROPS Docusate Sodium (coLACE CAP) 100 mg BID PO 03/15/17 09:00 04/14/17 08:59 03/19/17 08:57 100 MG Isosorbide Mononitrate (Imdur Ext Rel Tab) 90 mg QAM PO 03/15/17 09:00 04/14/17 08:59 03/19/17 08:58 90 MG Meclizine HCl (Antivert Tab) 25 mg QAM PO 03/15/17 09:00 04/14/17 08:59 03/19/17 08:58 25 MG Senna/Docusate Sodium (Senokot S Tab) 1 tab DAILY PRN PO 03/15/17 04:45 04/14/17 04:44 03/16/17 07:47 1 TAB Ondansetron HCl (Zofran Inj) 4 mg Q6H PRN IV 03/15/17 04:45 04/14/17 04:44 03/17/17 00:37 4 MG Insulin Aspart (novoLOG ASPART) SLIDING SCALE If C... ACHS SC 03/15/17 07:00 04/14/17 06:59 03/19/17 09:12 7 UNITS Glucose (Glucose 40% Gel) UD PRN PO 03/15/17 04:45 04/14/17 04:44 Glucose (Glucose Chew Tab) 1 tabs UD PRN PO 03/15/17 04:45 04/14/17 04:44 Dextrose (Dextrose 50% 50ML Syringe) 50 ml UD PRN IV 03/15/17 04:45 04/14/17 04:44 Glucagon (Glucagon Inj) 1 mg UD PRN SQ 03/15/17 04:45 04/14/17 04:44 Miscellaneous (Iv Fluids Completed) 1 ea PRN PRN N/A 03/15/17 04:45 03/15/18 04:44 Miscellaneous Information (Consult Glycemic Management Pharmacy) 1 ea UD N/A 03/15/17 09:18 04/14/17 09:17 Benzonatate (Tessalon Perles Cap) 100 mg TID PRN PO 03/15/17 09:15 04/14/17 09:14 03/15/17 14:52 100 MG Simvastatin (Zocor Tab) 40 mg HS PO 03/15/17 21:00 04/14/17 20:59 03/18/17 22:00 40 MG Potassium Chloride (Klor-Con Tab) 20 meq BID PO 03/18/17 09:00 04/17/17 08:59 03/19/17 08:59 20 MEQ Morphine Sulfate (MoRPHine SULFATE INJ) 2 mg Q2H PRN IV 03/17/17 08:00 03/31/17 07:59 03/19/17 09:57 2 MG Dicyclomine HCl (Bentyl Cap) 10 mg BID PO 03/18/17 20:00 04/17/17 20:59 03/19/17 09:00 10 MG Insulin Glargine (Lantus Solostar Pen) 15 units HS SC 03/18/17 21:00 04/17/17 20:59 03/18/17 22:16 15 UNITS Lidocaine (Lidoderm Patch 5%) 3 patch QAM TD 03/19/17 08:00 04/18/17 08:59 03/19/17 09:02 3 PATCH Miscellaneous (Remove Lidoderm Patch) 1 ea DAILY@21 N/A 03/18/17 21:00 04/17/17 20:59 Ferrous Sulfate (Feosol Tab) 325 mg BIDM PO 03/18/17 16:45 04/17/17 16:44 03/19/17 09:00 325 MG Methylnaltrexone [place] (Relistor Inj) 12 mg Q48H SQ 03/19/17 11:00 04/18/17 09:59 Polyethylene (Miralax Powder Packet) 17 gm BID PO 03/19/17 20:00 04/16/17 08:59 Tapentadol (Nucynta Tab) 50 mg Q4 PRN PO 03/19/17 12:00 04/01/17 16:14 UNV Tapentadol (Nucynta Er Tab) 150 mg 1059 ONCE PO 03/19/17 10:59 03/19/17 11:00 UNV Tapentadol (Nucynta Er Tab) 50 mg Q12 PO 03/19/17 21:00 04/18/17 20:59 UNV Objective Vital Signs Date Time Temp Pulse Resp B/P (MAP) Pulse Ox O2 Delivery O2 Flow Rate FiO2 03/19/17 08:00 37.0 98 18 110/69 (83) 94 Room Air 03/19/17 00:12 37.3 91 20 145/79 (101) 95 Room Air 03/19/17 00:00 Room Air 03/18/17 16:05 97 Room Air 03/18/17 15:04 37.1 87 18 134/68 (90) 97 Room Air 03/18/17 14:44 36.9 89 18 95 03/18/17 12:03 36.9 89 18 158/72 (100) 95 03/18/17 12:00 95 Room Air Physical Exam General Appearance: + mild distress (c/o abd pain ), + obese Eyes: normal inspection, PERRL, EOMI Neck: supple, no JVD, trachea midline Respiratory/Chest: normal breath sounds, no respiratory distress, no accessory muscle use Cardiovascular: regular rate, rhythm, no gallop, no murmur Abdomen: soft, + abnormal bowel sounds (hypoactive), + tenderness (LLQ, RLQ) Extremities: normal inspection, no pedal edema, no calf tenderness Neurologic/Psych: alert, normal mood/affect, oriented x 3 Skin: normal color, no jaundice, no rash Laboratory Results Last 24 Hours Test 03/18/17 11:27 03/18/17 16:43 03/18/17 20:14 03/19/17 07:36 Bedside Glucose 224 mg/dl 198 mg/dl 178 mg/dl 200 mg/dl Assessment and Plan Impression Patient is a 82 year old female seen for chronic abd pain specifically on RLQ almost postprandially. Previously suspected to be related to constipation which she admits she still has, and recent xray showed mild ileus. CT abd/pelvis w/o acute processes, + cholelithiasis w/o cholecystitis. HIDA scan normal. She also has iron deficiency anemia, Hgb at baseline around 10, FOBT negative. Plans - Monitor H/H and transfuse prn. Supplement w iron - KUB this AM - Dicyclomine 10mg BID - CL diet - Limit narcotics. Start Relistor 12mg q2 days. Increased Miralax to 17g BID, continue Colace 100mg BID, Senokot prn. - Given fall recently, and chronic abd pain symptoms, will defer inpt workup; january f/u w GI clinic upon DC and discuss possible colonoscopy at f/u. Addendum: KUB showed contrast in colon and fecal retention on L side of colon, likely cause of pt's abd pain. Will change Miralax regimen to 4oz every hour until good passage of BMs ATTESTATION: I have performed a history and physical examination of this patient and reviewed the electronic record. Specifically, on physical examination there is diffuse abdominal tenderness without guarding or rebound. I have discussed the case with GABRIELLE Mckeon. The above note reflects my findings, conclusions , and recommendations. Vu Archer MD
[2017-03-19] MEDS ORDERED: TAPENTADOL ER 50 MG TABCR PO ONE (12:00)
--- NOTE | 2017-03-19 15:12 | DIAGNOSTIC IMAGING REPORT ---
PA CHEST WITH BILATERAL RIB SERIES CLINICAL HISTORY: Atypical chest pain. FINDINGS: A PA chest radiographs with 6 additional views from a bilateral rib series is compared to compared to chest x-ray and chest CT dated 03/15/2017. The PA view is degraded by patient rotation. The heart is top normal for projection and there is atherosclerotic calcification of the thoracic aorta. Chronic interstitial thickening is similar to previous. There are small pleural effusions with bibasilar atelectasis. No pneumothorax is seen. The skeletal structures are osteopenic. There are acute nondistracted left lateral 6th through 8th rib fractures. No acute/distracted right-sided rib fractures are identified. Numerous healed bilateral rib fractures are similar to previous. Compression deformities are noted in the thoracic spine. IMPRESSION: 1. Small pleural effusions with bibasilar atelectasis. 2. The lungs are otherwise clear. No pneumothorax is seen. 3. There are acute nondistracted left lateral 6th through 8th rib fractures. 4. Numerous healed bilateral rib fractures are similar to previous. Electronically signed by: Bobby Eugene M.D. 03/19/2017 3:10 PM Dictated Date/Time: 03/19/2017 3:06 PM
--- NOTE | 2017-03-19 15:34 | Family Medicine Progress Note ---
Progress Note Date of Service Mar 19, 2017. Subjective Pt evaluation today including: conversation w/ patient, physical exam, chart review, conversation w/ client development consultant Pain: patient complaining of 10/10 pain PO Intake: good Voiding: no voiding problems, no incontinence Patient complaining of 10/10 pain Says it is in her right lower abdomen, back and under her left breast She ate breakfast this morning without any troubles and is passing urine regularly Nucynta IR was well tolerated yesterday evening Patient with KUB today showed stool on left side of colon Constitutional: No fever, No chills, No sweats ENT: No hearing loss, No nasal symptoms, No sore throat Respiratory: No cough, No sputum, No shortness of breath Cardiovascular: + chest pain, No claudication, No palpitations Abdomen: + pain, + constipation, No nausea, No vomiting, No diarrhea Musculoskeletal: No joint pain, No muscle pain Female : No dysuria, No urinary frequency, No hematuria Heme: No abnormal bleeding/bruising, No clotting problems Objective Vital Signs Date Time Temp Pulse Resp B/P (MAP) Pulse Ox O2 Delivery O2 Flow Rate FiO2 03/19/17 08:00 37.0 98 18 110/69 (83) 94 Room Air 03/19/17 08:00 94 Room Air 3.0 03/19/17 00:12 37.3 91 20 145/79 (101) 95 Room Air 03/19/17 00:00 Room Air 03/18/17 16:05 97 Room Air Physical Exam General Appearance: WD/WN, + mild distress, + pertinent finding (sitting in her chair next to her bed, appears very anxious and with resting full body tremor) ENT: hearing grossly normal, pharynx normal Neck: no carotid bruits Respiratory/Chest: lungs clear, no respiratory distress, no accessory muscle use, + pertinent finding (pain under left breast) Cardiovascular: regular rate, rhythm, no edema, no murmur Abdomen: normal bowel sounds, no organomegaly, + tenderness (tender throughout) Extremities: normal inspection, no pedal edema, + calf tenderness, + pertinent finding (back pain) Neurologic/Psychiatric: alert, oriented x 3, + pertinent finding (appears very anxious) Assessment and Plan 82 yo F with extensive medical history complaining of persistent rib pain throughout body. Had had extensive workup to date and has had no new acute findings. Does have a history of old rib fractures as well as lumbar compression fractures but nothing new on imaging. We are having a lot of trouble controlling her pain. She is going to get an aggressive bowel regimen this afternoon in order to try and clear her bowels. Back pain - hx of multiple rib fractures and spinal compression fractures - patient fell again and now complaining of new back pain - lumbar and thoracic xrays with no acute fractures - ordered lumbar/thoracic brace - started Nucynta IR and ER to limit morphine use Abdominal pain - Extensive workup negative to date - KUB showed fecal load on left side of colon - GI started Relistor 12mg q2 days. Increased Miralax to 17g BID, continue Colace 100mg BID, Senokot prn. ------> also started Miralax 4oz until patient had BM - Patient on pantoprazole PO qpm - consulted GI for scope considering continued ab pain and iron deficiency anemia------> will see patient as outpatient, started dicyclomine and ferrous sulfate Chest Pain: - Central pleuritic Chest pain currently with palpable chest wall tenderness - Order Rib series to check for new rib fractures - CT Chest: no airspace consolidation or pleural effusion, no acute infectious or inflammatory findings Anemia: - Iron Studies consistent with Iron Def. Anemia - Hgb stable at 9.5 - ferrous sulfate 325mg bid T2DM: - Glycemic consult Paroxysmal Afib/ CAD - restarted Statin -Continue to monitor Anxiey /Depression - C/w Lexapro, Topiramate Itchiness at night - benadryl Arthritis - prednisone 5mg daily DVT Prophylaxis - Start Heparin Diet - Type 2 DM diet Disposition -PTOT -Patient is as resident of [facility] DNR -- Resident Physician Supervision Note: I was present with PGY2 Dr. Jimmy Hyatt during the history and exam. I discussed the case with the resident and agree with the findings and plan as documented in the note. Any exceptions or clarifications are listed here: none. This am on bedside rounds she continues to complain of severe pain in her low back along with her abdomen - latter is now left sided, mainly LUQ and lower left chest wall. Not passing much flatus and no stool in 2-3 days. Eating is still poor - "I start hurting as soon as I start eating." Drinking coffee and this does NOT bother her stomach, however. Very anxious and tearful. VSS no fever gen - looks more comfortable than stated complaints, NAD neck - no JVD heart - RRR lungs - CTA b/l chest - tender left lower chest wall abd - more distended than previous, tender LUQ and LLQ, no peritoneal signs ext - no edema KUB x-ray with left-sided stool rib x-rays pending A/P: 1. abdominal pain - unclear etiology despite large work-up to date. admitted for similar symptoms in 01/2016. seen by Sameer GUADARRAMA during that stay - etiology was not found. gallstones present on CT but no signs of acute cholecystitis. HIDA Negative. KUB x-ray unremarkable x 2 except for mod stool. CT abd/pelvis x 2 this admission w/o acute pathology. Spoke with Sameer GUADARRAMA today - they plan to perform a bowel prep to see if this is severe constipation/excess gas causing her symptoms. She does need endoscopic evaluation at some point due to Fe Deficiency Anemia. Re-eval in am. 2. left-sided chest wall pain - ordered rib series to r/o rib fracture(s). 3. lumbar back pain - acute/chronic - repeat L-spine and T-spine without new compression Fx's. Back brace by Osmany Mcdonnell ordered and delivered. Start nucynta ER 50mg q12h and continue nucynta IR 50mg q4h prn try to avoid morphine due to #1 other chronic medical problems stable Documented By: Demario Baez MD Continued [facility] stay due to: inadequate oral pain control
[2017-03-19 16:06] VITALS: BP 135/81; PULSE 90; TEMP 36.9; O2SAT 94
[2017-03-19] MEDS ORDERED: POLYETHYLENE (MIRALAX) 17 GM PACK PO SCH (20:00)
[2017-03-19] MEDS: DOCUSATE SODIUM/SENNA 50/8.6MG TAB PO PRN (20:08)
[2017-03-19] MEDS: PANTOprazole SOD 40 MG TAB PO SCH (20:51)
[2017-03-19] MEDS: SIMVASTATIN 40 MG TAB PO SCH (20:52)
[2017-03-19] MEDS: TAPENTADOL ER 50 MG TABCR PO SCH (20:57)
[2017-03-19] MEDS ORDERED: TAPENTADOL 150 MG PO SCH (21:00)
[2017-03-19] MEDS: INSULIN GLARGINE SOLOSTAR 100 UNITS/ML 3 ML PEN SC SCH (21:02)
[2017-03-19 23:10] VITALS: BP 168/90; PULSE 83; TEMP 36.6; O2SAT 92
[2017-03-20] MEDS: POLYETHYLENE (MIRALAX) 17 GM PACK PO SCH ×13 (01:42→20:21)
[2017-03-20] MEDS: TAPENTADOL HCL 50 MG TAB PO PRN ×2 (05:22→14:21)
[2017-03-20 08:27] VITALS: BP 110/66; PULSE 74; TEMP 36.8; O2SAT 94
[2017-03-20] MEDS: TOPIRAMATE 100 MG TAB PO SCH ×2 (08:43→20:20)
[2017-03-20] MEDS: MECLIZINE HCL 25 MG TAB PO SCH (08:43)
[2017-03-20] MEDS: DOCUSATE SODIUM/SENNA 50/8.6MG TAB PO PRN (08:43)
[2017-03-20] MEDS: FERROUS SULFATE 325 MG TAB PO SCH ×2 (08:43→17:46)
[2017-03-20] MEDS: DOCUSATE SODIUM 100 MG CAP PO SCH ×2 (08:43→20:21)
[2017-03-20] MEDS: DICYCLOMINE HCL 10 MG CAP PO SCH ×2 (08:43→20:21)
[2017-03-20] MEDS: ESCITALOPRAM OXALATE 20 MG TAB PO SCH (08:43)
[2017-03-20] MEDS: POTASSIUM CHLORIDE 20 MEQ TABCR PO SCH ×2 (08:44→20:20)
[2017-03-20] MEDS: ISOSORBIDE MONONITRATE 30 MG TABCR PO SCH (08:44)
[2017-03-20] MEDS: ARTIFICIAL TEARS OP SOLN OPB SCH ×6 (08:45→23:43)
[2017-03-20] MEDS: LIDODERM (LIDOCAINE) PATCH 5% TD SCH (08:46)
[2017-03-20] MEDS: TAPENTADOL ER 50 MG TABCR PO SCH ×2 (08:56→20:39)
[2017-03-20] MEDS: INSULIN ASPART 100 UNITS/ML 3 ML PEN SC SCH ×4 (09:19→22:28)
[2017-03-20] MEDS ORDERED: NURSING VERBAL MED ORDER ONE (12:15)
--- NOTE | 2017-03-20 13:34 | Pharmacy Progress Note ---
Glycemic Control Progress Note Date of Service Mar 20, 2017. Scope Glycemic Pharmacist consulted for glycemic control to write orders per [facility] inpatient glycemic control protocol. Objective Accuchecks BSG (last 24hrs): Test 03/19/17 16:59 03/19/17 20:54 03/20/17 07:52 Bedside Glucose 244 mg/dl (70-90) 189 mg/dl (70-90) 169 mg/dl (70-90) Recent Pertinent Medications The patient is currently receiving: * Basal insulin: Lantus 15 units every 24 hours * Correctional Insulin: Novolog Correction per scale ACHS Goal Range: Low 100 mg/dL - High 140 mg/dL Correction Factor: 20 mg/dL/unit * Prandial insulin: Per carb ratio of 1 unit per 7 grams CHO consumed Outpatient Anti-Diabetic Meds Lantus 15 units sq HS Assessment & Plan ASSESSMENT: * See progress note from 03/15/17 for more background info, in short: * Pt receiving SQ basal bolus insulin regimen for hyperglycemia * Patient is currently receiving an average of 44 units of insulin per day * 15 units of basal insulin * 29 units of prandial/correctional insulin * BSGs ranging 100 - 140 mg/dl over the past 24hrs * Changes needed to insulin regimen: * AM Fasting BSG = 169 mg/dl. This is improved but remains slightly above goal range for patient based on inpatient targets and co-morbidities. Continue to titrate basal insulin to achieve closer to a 50/50 basal/bolus dose. * Post-prandial BSGs are near goal range therefore no changes needed to CF/CR today PLAN FOR INPATIENT GLYCEMIC CONTROL: * Increasing Lantus to 18 units SQ qHS * Continuing correction factor to 20 mg/dl/unit * Continuing carb ratio to 1 unit per 7 grams CHO consumed * Continuing goal range to Low 100 mg/dL - High 140 mg/dL RECOMMENDATIONS FOR DISCHARGE: * Recommend resuming out patient regimen on discharge - patient has good out patient control evidenced by A1c of 6% (12/31/16) * Please note that the plan above was derived based on current level of insulin resistance and hospital stress. These recommendations are appropriate for inpatient admission only. Plan of care upon discharge will need to be reassessed to avoid potential outpatient hypo/hyperglycemia. Thank you.
--- NOTE | 2017-03-20 14:01 | Gastroenterology Progress Note ---
Progress Note Date of Service: Mar 20, 2017 Subjective Pt evaluation today including: conversation w/ patient, physical exam, chart review, lab review, review of inpatient medication list Pt had BMs this AM, reports abd pain improved but still present on L side abd area. She is able to tolerate her diet well, and seen sitting up reading the newspaper, appears to be comfortable. Review of Systems Constitutional: No fever, No chills Respiratory: No cough Abdomen: + pain (improved), + constipation, No nausea, No vomiting Medications Current Inpatient Medications Medications (Trade) Dose Ordered Sig/Phil Route Start Time Stop Time Status Last Admin Dose Admin Acetaminophen (Tylenol Tab) 650 mg Q4H PRN PO 03/15/17 04:45 04/14/17 04:44 03/18/17 11:19 650 MG Nitroglycerin (Nitrostat Tab) 0.4 mg UD PRN SL 03/15/17 04:45 04/14/17 04:44 Albuterol (Ventolin Hfa Inhaler) 2 puffs Q4 PRN INH 03/15/17 04:45 04/14/17 04:44 Diphenhydramine HCl (Benadryl Cap) 25 mg HS PO 03/15/17 21:00 04/14/17 20:59 03/19/17 20:51 25 MG Escitalopram Oxalate (Lexapro Tab) 20 mg DAILY PO 03/15/17 09:00 04/14/17 08:59 03/20/17 08:43 20 MG Pantoprazole Sodium (Protonix Tab) 40 mg QPM PO 03/15/17 21:00 04/14/17 20:59 03/19/17 20:51 40 MG Prednisone (PredniSONE TAB) 5 mg QAM PO 03/15/17 09:00 04/14/17 08:59 03/20/17 08:44 5 MG Topiramate (Topamax Tab) 200 mg BID PO 03/15/17 09:00 04/14/17 08:59 03/20/17 08:43 200 MG Artificial Tears (Artificial Tears) 2 drops QS OPB 03/15/17 08:00 04/14/17 07:59 03/20/17 08:45 2 DROPS Docusate Sodium (coLACE CAP) 100 mg BID PO 03/15/17 09:00 04/14/17 08:59 03/20/17 08:43 100 MG Isosorbide Mononitrate (Imdur Ext Rel Tab) 90 mg QAM PO 03/15/17 09:00 04/14/17 08:59 03/20/17 08:44 90 MG Meclizine HCl (Antivert Tab) 25 mg QAM PO 03/15/17 09:00 04/14/17 08:59 03/20/17 08:43 25 MG Senna/Docusate Sodium (Senokot S Tab) 1 tab DAILY PRN PO 03/15/17 04:45 04/14/17 04:44 03/20/17 08:43 1 TAB Ondansetron HCl (Zofran Inj) 4 mg Q6H PRN IV 03/15/17 04:45 04/14/17 04:44 03/17/17 00:37 4 MG Insulin Aspart (novoLOG ASPART) SLIDING SCALE If C... ACHS SC 03/15/17 07:00 04/14/17 06:59 03/20/17 13:13 6 UNITS Glucose (Glucose 40% Gel) UD PRN PO 03/15/17 04:45 04/14/17 04:44 Glucose (Glucose Chew Tab) 1 tabs UD PRN PO 03/15/17 04:45 04/14/17 04:44 Dextrose (Dextrose 50% 50ML Syringe) 50 ml UD PRN IV 03/15/17 04:45 04/14/17 04:44 Glucagon (Glucagon Inj) 1 mg UD PRN SQ 03/15/17 04:45 04/14/17 04:44 Miscellaneous (Iv Fluids Completed) 1 ea PRN PRN N/A 03/15/17 04:45 03/15/18 04:44 Miscellaneous Information (Consult Glycemic Management Pharmacy) 1 ea UD N/A 03/15/17 09:18 04/14/17 09:17 Benzonatate (Tessalon Perles Cap) 100 mg TID PRN PO 03/15/17 09:15 04/14/17 09:14 03/15/17 14:52 100 MG Simvastatin (Zocor Tab) 40 mg HS PO 03/15/17 21:00 04/14/17 20:59 03/19/17 20:52 40 MG Potassium Chloride (Klor-Con Tab) 20 meq BID PO 03/18/17 09:00 04/17/17 08:59 03/20/17 08:44 20 MEQ Morphine Sulfate (MoRPHine SULFATE INJ) 2 mg Q2H PRN IV 03/17/17 08:00 03/31/17 07:59 03/19/17 09:57 2 MG Dicyclomine HCl (Bentyl Cap) 10 mg BID PO 03/18/17 20:00 04/17/17 20:59 03/20/17 08:43 10 MG Lidocaine (Lidoderm Patch 5%) 3 patch QAM TD 03/19/17 08:00 04/18/17 08:59 03/20/17 08:46 3 PATCH Miscellaneous (Remove Lidoderm Patch) 1 ea DAILY@21 N/A 03/18/17 21:00 04/17/17 20:59 03/19/17 20:57 1 EA Ferrous Sulfate (Feosol Tab) 325 mg BIDM PO 03/18/17 16:45 04/17/17 16:44 03/20/17 08:43 325 MG Methylnaltrexone [place] (Relistor Inj) 12 mg Q48H SQ 03/19/17 11:00 04/18/17 09:59 03/19/17 12:37 12 MG Tapentadol (Nucynta Tab) 50 mg Q4 PRN PO 03/19/17 16:00 04/01/17 15:59 03/20/17 05:22 50 MG Tapentadol (Nucynta Er Tab) 50 mg Q12 PO 03/19/17 21:00 04/18/17 20:59 03/20/17 08:56 50 MG Insulin Glargine (Lantus Solostar Pen) 18 units HS SC 03/20/17 22:00 04/19/17 21:59 Objective Vital Signs Date Time Temp Pulse Resp B/P (MAP) Pulse Ox O2 Delivery O2 Flow Rate FiO2 03/20/17 08:27 36.8 74 18 110/66 (81) 94 Room Air 03/20/17 08:00 Room Air 03/20/17 00:00 Room Air 03/19/17 23:10 36.6 83 18 168/90 (116) 92 Room Air 03/19/17 16:10 Room Air 03/19/17 16:06 36.9 90 20 135/81 (99) 94 Room Air Physical Exam General Appearance: WD/WN, no apparent distress, + obese Eyes: normal inspection, PERRL, EOMI Neck: supple, no JVD, trachea midline Respiratory/Chest: normal breath sounds, no respiratory distress, no accessory muscle use Cardiovascular: regular rate, rhythm, no gallop, no murmur Abdomen: normal bowel sounds, soft, + tenderness (mild TTP LLQ) Extremities: normal inspection, no pedal edema, no calf tenderness Neurologic/Psych: alert, normal mood/affect, oriented x 3 Skin: normal color, no jaundice, no rash Laboratory Results Last 24 Hours Test 03/19/17 16:59 03/19/17 20:54 03/20/17 07:52 Bedside Glucose 244 mg/dl 189 mg/dl 169 mg/dl Assessment and Plan Impression Patient is a 82 year old female seen for chronic abd pain specifically on RLQ almost postprandially. Previously suspected to be related to constipation which she admits she still has, and recent xray showed mild ileus. CT abd/pelvis w/o acute processes, + cholelithiasis w/o cholecystitis. HIDA scan normal. She also has iron deficiency anemia, Hgb at baseline around 10, FOBT negative. Plans - Monitor H/H and transfuse prn. Supplement w iron - Continue Miralax 8.5g qhr till noon, repeat KUB at2PM - Dicyclomine 10mg BID - Limit narcotics. Relistor 12mg q2 days. Continue Colace 100mg BID, Senokot prn. - Given fall recently, and chronic abd pain symptoms, will defer inpt workup; january/ w GI clinic upon DC and discuss possible colonoscopy at f/u. ATTESTATION: I have performed a history and physical examination of this patient and reviewed the electronic record. Specifically, on physical examination there is mild diffuse abdominal tenderness. I have discussed the case with GABRIELLE Mckeon. The above note reflects my findings, conclusions, and recommendations. Vu Archer MD
--- NOTE | 2017-03-20 14:18 | DIAGNOSTIC IMAGING REPORT ---
KUB CLINICAL HISTORY: 82 years-old Female presenting with re-eval constipation. TECHNIQUE: Single supine view of the abdomen was obtained. COMPARISON: 03/19/2017. FINDINGS: Gaseous distention of large bowel has increased from the prior exam. Less residual oral contrast noted with normal remaining in the rectum indicating passage. No significant stool burden is evident. No gross evidence of free intraperitoneal gas allowing for supine technique. Blunting of the right costophrenic angle suggests small right pleural effusion. Osteopenia is likely present. Extensive degenerative change of the thoracolumbar spine as well as the pubic symphysis and right hip joint. Deformities of the lateral left seventh through ninth ribs consistent with acute fractures. IMPRESSION: 1. Increased gaseous distention of large bowel without significant stool burden. This could suggest colonic ileus. No evidence of bowel obstruction given apparent passage of oral contrast. 2. Acute rib fractures of the left lateral seventh through ninth ribs. 3. Small right pleural effusion. Electronically signed by: Mahamed Telles 03/20/2017 2:16 PM Dictated Date/Time: 03/20/2017 2:11 PM
[2017-03-20 15:05] VITALS: BP 177/81; PULSE 92; TEMP 36.8; O2SAT 94
--- NOTE | 2017-03-20 16:19 | Family Medicine Progress Note ---
Progress Note Date of Service Mar 20, 2017. Subjective Pt evaluation today including: conversation w/ patient, physical exam, chart review, lab review, conversation w/ consultant technology, review of inpatient medication list Pain: minimal PO Intake: good Voiding: no voiding problems Patient is feeling much better today She says that her pain is well controlled and the nucynta has helped She says that the back brace is uncomfortable but helps She is still having some abdominal discomfort and KUB showed gaseous distension of her abdomen She did have a large bm yesterday Constitutional: No fever Respiratory: + shortness of breath Cardiovascular: + chest pain, No edema, No palpitations Breast: + breast pain Abdomen: + pain (minimal), No nausea, No vomiting, No diarrhea Musculoskeletal: + joint pain Female : No dysuria Skin: + itch (at night), No rash, No new/changing skin lesions Medications Current Inpatient Medications Medications (Trade) Dose Ordered Sig/Phil Route Start Time Stop Time Status Last Admin Dose Admin Acetaminophen (Tylenol Tab) 650 mg Q4H PRN PO 03/15/17 04:45 04/14/17 04:44 03/18/17 11:19 650 MG Nitroglycerin (Nitrostat Tab) 0.4 mg UD PRN SL 03/15/17 04:45 04/14/17 04:44 Albuterol (Ventolin Hfa Inhaler) 2 puffs Q4 PRN INH 03/15/17 04:45 04/14/17 04:44 Diphenhydramine HCl (Benadryl Cap) 25 mg HS PO 03/15/17 21:00 04/14/17 20:59 03/19/17 20:51 25 MG Escitalopram Oxalate (Lexapro Tab) 20 mg DAILY PO 03/15/17 09:00 04/14/17 08:59 03/20/17 08:43 20 MG Pantoprazole Sodium (Protonix Tab) 40 mg QPM PO 03/15/17 21:00 04/14/17 20:59 03/19/17 20:51 40 MG Prednisone (PredniSONE TAB) 5 mg QAM PO 03/15/17 09:00 04/14/17 08:59 03/20/17 08:44 5 MG Topiramate (Topamax Tab) 200 mg BID PO 03/15/17 09:00 04/14/17 08:59 03/20/17 08:43 200 MG Artificial Tears (Artificial Tears) 2 drops QS OPB 03/15/17 08:00 04/14/17 07:59 03/20/17 08:45 2 DROPS Docusate Sodium (coLACE CAP) 100 mg BID PO 03/15/17 09:00 04/14/17 08:59 03/20/17 08:43 100 MG Isosorbide Mononitrate (Imdur Ext Rel Tab) 90 mg QAM PO 03/15/17 09:00 04/14/17 08:59 03/20/17 08:44 90 MG Meclizine HCl (Antivert Tab) 25 mg QAM PO 03/15/17 09:00 04/14/17 08:59 03/20/17 08:43 25 MG Senna/Docusate Sodium (Senokot S Tab) 1 tab DAILY PRN PO 03/15/17 04:45 04/14/17 04:44 03/20/17 08:43 1 TAB Ondansetron HCl (Zofran Inj) 4 mg Q6H PRN IV 03/15/17 04:45 04/14/17 04:44 03/17/17 00:37 4 MG Insulin Aspart (novoLOG ASPART) SLIDING SCALE If C... ACHS SC 03/15/17 07:00 04/14/17 06:59 03/20/17 13:13 6 UNITS Glucose (Glucose 40% Gel) UD PRN PO 03/15/17 04:45 04/14/17 04:44 Glucose (Glucose Chew Tab) 1 tabs UD PRN PO 03/15/17 04:45 04/14/17 04:44 Dextrose (Dextrose 50% 50ML Syringe) 50 ml UD PRN IV 03/15/17 04:45 04/14/17 04:44 Glucagon (Glucagon Inj) 1 mg UD PRN SQ 03/15/17 04:45 04/14/17 04:44 Miscellaneous (Iv Fluids Completed) 1 ea PRN PRN N/A 03/15/17 04:45 03/15/18 04:44 Miscellaneous Information (Consult Glycemic Management Pharmacy) 1 ea UD N/A 03/15/17 09:18 04/14/17 09:17 Benzonatate (Tessalon Perles Cap) 100 mg TID PRN PO 03/15/17 09:15 04/14/17 09:14 03/15/17 14:52 100 MG Simvastatin (Zocor Tab) 40 mg HS PO 03/15/17 21:00 04/14/17 20:59 03/19/17 20:52 40 MG Potassium Chloride (Klor-Con Tab) 20 meq BID PO 03/18/17 09:00 04/17/17 08:59 03/20/17 08:44 20 MEQ Morphine Sulfate (MoRPHine SULFATE INJ) 2 mg Q2H PRN IV 03/17/17 08:00 03/31/17 07:59 03/19/17 09:57 2 MG Dicyclomine HCl (Bentyl Cap) 10 mg BID PO 03/18/17 20:00 04/17/17 20:59 03/20/17 08:43 10 MG Lidocaine (Lidoderm Patch 5%) 3 patch QAM TD 03/19/17 08:00 04/18/17 08:59 03/20/17 08:46 3 PATCH Miscellaneous (Remove Lidoderm Patch) 1 ea DAILY@21 N/A 03/18/17 21:00 04/17/17 20:59 03/19/17 20:57 1 EA Ferrous Sulfate (Feosol Tab) 325 mg BIDM PO 03/18/17 16:45 04/17/17 16:44 03/20/17 08:43 325 MG Methylnaltrexone [place] (Relistor Inj) 12 mg Q48H SQ 03/19/17 11:00 04/18/17 09:59 03/19/17 12:37 12 MG Tapentadol (Nucynta Tab) 50 mg Q4 PRN PO 03/19/17 16:00 04/01/17 15:59 03/20/17 14:21 50 MG Tapentadol (Nucynta Er Tab) 50 mg Q12 PO 03/19/17 21:00 04/18/17 20:59 03/20/17 08:56 50 MG Insulin Glargine (Lantus Solostar Pen) 18 units HS SC 03/20/17 22:00 04/19/17 21:59 Polyethylene (Miralax Powder Packet) 17 gm BID PO 03/20/17 20:00 04/19/17 19:59 Simethicone (Mylicon Chew Tab) 80 mg Q6H PRN PO 03/20/17 16:15 04/19/17 16:14 Objective Vital Signs Date Time Temp Pulse Resp B/P (MAP) Pulse Ox O2 Delivery O2 Flow Rate FiO2 03/20/17 15:05 36.8 92 20 177/81 (113) 94 Room Air 03/20/17 08:27 36.8 74 18 110/66 (81) 94 Room Air 03/20/17 08:00 Room Air 03/20/17 00:00 Room Air 03/19/17 23:10 36.6 83 18 168/90 (116) 92 Room Air Physical Exam Notes: General Appearance: WD/WN, + no distress, + pertinent finding (sitting in her chair next to her bed, appears comfortable) ENT: hearing grossly normal, pharynx normal Neck: no carotid bruits Respiratory/Chest: lungs clear, no respiratory distress, no accessory muscle use, + pertinent finding (pain under left breast) Cardiovascular: regular rate, rhythm, no edema, no murmur Abdomen: normal bowel sounds, no organomegaly, minimal tenderness, appears bloated Extremities: normal inspection, no pedal edema, + pertinent finding (back pain at left lumbar paraspinal muscle) Neurologic/Psychiatric: alert, oriented x 3, Assessment and Plan Laboratory Results Results Past 24 Hours Test 03/19/17 16:59 03/19/17 20:54 03/20/17 07:52 Range/Units Bedside Glucose 244 189 169 70-90 mg/dl Microbiology Results 03/20/17 Shiga Toxin Test, Received Pending 03/20/17 Stool Culture, Received Pending 03/20/17 C.difficile Toxin B Gene (PCR) - Final, Complete No C. difficile toxin B gene detected Assessment and Plan 82 yo F with extensive medical history found to have 3 rib fractures and is having increased abdominal distension on KUB done today. Back pain - hx of multiple rib fractures and spinal compression fractures - lumbar and thoracic xrays with no acute fractures - back brace - started Nucynta IR and ER Abdominal pain - Extensive workup negative to date - KUB showed mild gaseous distension. ordered simethicone - GI started Relistor 12mg q2 days. Increased Miralax to 17g BID, continue Colace 100mg BID, Senokot prn. - Patient on pantoprazole PO qpm Chest Pain: - 3 Rib fractures on right side - CT Chest: no airspace consolidation or pleural effusion, no acute infectious or inflammatory findings Anemia: - Iron Studies consistent with Iron Def. Anemia - Hgb stable - ferrous sulfate 325mg bid T2DM: - Glycemic consult Paroxysmal Afib/ CAD - restarted Statin -Continue to monitor Anxiey /Depression - C/w Lexapro, Topiramate Itchiness at night - benadryl Arthritis - prednisone 5mg daily DVT Prophylaxis - Start Heparin Diet - Type 2 DM diet Disposition -PTOT -Patient is as resident of [facility] DNR -- Resident Physician Supervision Note: I was present with PGY2 Dr. Jimmy Hyatt during the history and exam. I discussed the case with the resident and agree with the findings and plan as documented in the note. Any exceptions or clarifications are listed here: none. During my personal bedside rounds the patient was initially on the bedside commode. She appeared comfortable. behavioral health aide said she was fairly comfortable while voiding and looked comfortable when ambulating back to the bed. When I returned she was back in bed. She then got very anxious, shaky, and started describing multiple complaints including neck pain, left arm pain, left breast pain, left sided abdominal pain (no RLQ pain). She has eaten today but "very little". States "coke is the only thing that makes me feel better." VSS no fever gen - NAD, very anxious neck - no JVD, supple, nontender to palpation posterior segments heart - RRR lungs - CTA b/l chest - tender left lower chest wall - no change abd - mild distension on exam, tender LUQ/LLQ (especially LUQ), no RLQ tenderness, no peritoneal signs ext - no edema repeat abd x-rays today -- colonic ileus A/P: 1. abdominal pain - extensive work-up this admission along with GI consultation. admitted for similar symptoms in 01/2016. seen by Sameer GI during that stay - etiology was not found. gallstones present on CT but no signs of acute cholecystitis. HIDA Negative. CT abd/pelvis x 2 this admission w/o acute pathology. Sameer GUADARRAMA feels that much of the issue is stool/constipation. Given relistor and miralax prep with NUMEROUS STOOLS today. She did confirm with me that passing stool did in fact make her feel better. Will cont aggressive bowel regimen. Add mylicon for flatulence/gas. 2. left-sided rib fractures - lidoderm/nucynta IR and ER. 3. lumbar back pain - acute/chronic - repeat L-spine and T-spine without new compression Fx's. Back brace by Osmany Mcdonnell ordered and delivered. Cont nucynta ER 50mg q12h and continue nucynta IR 50mg q4h prn try to avoid morphine due to #1 4. neck pain - CT cervical spine following her fall a few days ago without acute findings and exam today is stable/normal. other chronic medical problems stable repeat labs in am Documented By: Demario Baez MD Continued [facility] stay due to: multiple IV medications needed
[2017-03-20] MEDS ORDERED: SIMETHICONE 80 MG CHEW PO PRN (20:15)
[2017-03-20] MEDS: PANTOprazole SOD 40 MG TAB PO SCH (20:40)
[2017-03-20] MEDS: SIMETHICONE 80 MG CHEW PO PRN (20:49)
[2017-03-20] MEDS ORDERED: INSULIN GLARGINE SOLOSTAR 100 UNITS/ML 3 ML PEN SC SCH (22:00)
[2017-03-20] MEDS: SIMVASTATIN 40 MG TAB PO SCH (22:36)
[2017-03-21 00:11] VITALS: BP 181/94; PULSE 93; TEMP 37.2; O2SAT 93
[2017-03-21 01:33] VITALS: BP 148/80; PULSE 88
[2017-03-21 07:23] LABS: HEMATOCRIT 30.3 % (37-47); MEAN CELL VOLUME 82.8 fL (80-100); MEAN CORPUSCULAR HEMOGLOBIN 25.4 pg (25-34); MEAN CORPUSCULAR HGB CONC 30.7 g/dl (32-36); MEAN PLATELET VOLUME 8.5 fL (7.4-10.4); PLATELET COUNT 275 K/uL (130-400); RED BLOOD COUNT 3.66 M/uL (4.2-5.4); WHITE BLOOD COUNT 8.55 K/uL (4.8-10.8)
[2017-03-21 07:42] VITALS: BP 133/77; PULSE 82; TEMP 37.3; O2SAT 97
[2017-03-21 08:25] LABS: BLOOD UREA NITROGEN 12 mg/dl (7-18); BUN/CREATININE RATIO 9.9 (10-20); CALCIUM 9.7 mg/dl (8.5-10.1); CARBON DIOXIDE 21 mmol/L (21-32); CHLORIDE 105 mmol/L (98-107); GLUCOSE 175 mg/dl (70-99); SODIUM 135 mmol/L (136-145)
[2017-03-21] MEDS: POLYETHYLENE (MIRALAX) 17 GM PACK PO SCH ×2 (08:47→19:41)
[2017-03-21] MEDS: TAPENTADOL ER 50 MG TABCR PO SCH ×2 (08:48→21:23)
[2017-03-21] MEDS: FERROUS SULFATE 325 MG TAB PO SCH ×2 (08:48→17:52)
[2017-03-21] MEDS: DICYCLOMINE HCL 10 MG CAP PO SCH ×2 (08:48→19:43)
[2017-03-21] MEDS: ISOSORBIDE MONONITRATE 30 MG TABCR PO SCH (08:49)
[2017-03-21] MEDS: POTASSIUM CHLORIDE 20 MEQ TABCR PO SCH ×2 (08:49→19:41)
[2017-03-21] MEDS: LIDODERM (LIDOCAINE) PATCH 5% TD SCH (08:51)
[2017-03-21] MEDS: ESCITALOPRAM OXALATE 20 MG TAB PO SCH (08:52)
[2017-03-21] MEDS: MECLIZINE HCL 25 MG TAB PO SCH (08:52)
[2017-03-21] MEDS: DOCUSATE SODIUM 100 MG CAP PO SCH ×2 (08:52→19:41)
[2017-03-21] MEDS: TOPIRAMATE 100 MG TAB PO SCH ×2 (08:53→19:41)
[2017-03-21] MEDS: ARTIFICIAL TEARS OP SOLN OPB SCH ×4 (08:58→16:06)
[2017-03-21] MEDS: INSULIN ASPART 100 UNITS/ML 3 ML PEN SC SCH ×4 (09:00→21:48)
--- NOTE | 2017-03-21 12:29 | Family Medicine Progress Note ---
Progress Note Date of Service Mar 21, 2017. Subjective Pt evaluation today including: conversation w/ patient, physical exam, chart review, conversation w/ pre sales technical consultant, review of inpatient medication list Pain: 9/10 PO Intake: good Voiding: no voiding problems Patient still having 9/10 rib pain on the left side Patient says she is unsure how much longer she will be able to deal with all this Says is willing to do anything to control her pain Had many loose bowel motion yesterday and ab pain has improved. She has been eating well and denies any nausea or vomiting Constitutional: No fever, No chills Respiratory: No cough, No sputum, No shortness of breath Cardiovascular: + chest pain, No palpitations Abdomen: + pain, + diarrhea, No nausea, No vomiting, No constipation Musculoskeletal: + joint pain, + muscle pain Female : No dysuria Medications Current Inpatient Medications Medications (Trade) Dose Ordered Sig/Phil Route Start Time Stop Time Status Last Admin Dose Admin Acetaminophen (Tylenol Tab) 650 mg Q4H PRN PO 03/15/17 04:45 04/14/17 04:44 03/18/17 11:19 650 MG Nitroglycerin (Nitrostat Tab) 0.4 mg UD PRN SL 03/15/17 04:45 04/14/17 04:44 Albuterol (Ventolin Hfa Inhaler) 2 puffs Q4 PRN INH 03/15/17 04:45 04/14/17 04:44 Diphenhydramine HCl (Benadryl Cap) 25 mg HS PO 03/15/17 21:00 04/14/17 20:59 03/20/17 22:30 25 MG Escitalopram Oxalate (Lexapro Tab) 20 mg DAILY PO 03/15/17 09:00 04/14/17 08:59 03/21/17 08:52 20 MG Pantoprazole Sodium (Protonix Tab) 40 mg QPM PO 03/15/17 21:00 04/14/17 20:59 03/20/17 20:40 40 MG Prednisone (PredniSONE TAB) 5 mg QAM PO 03/15/17 09:00 04/14/17 08:59 03/21/17 08:48 5 MG Topiramate (Topamax Tab) 200 mg BID PO 03/15/17 09:00 04/14/17 08:59 03/21/17 08:53 200 MG Artificial Tears (Artificial Tears) 2 drops QS OPB 03/15/17 08:00 04/14/17 07:59 03/21/17 08:58 2 DROPS Docusate Sodium (coLACE CAP) 100 mg BID PO 03/15/17 09:00 04/14/17 08:59 03/21/17 08:52 100 MG Isosorbide Mononitrate (Imdur Ext Rel Tab) 90 mg QAM PO 03/15/17 09:00 04/14/17 08:59 03/21/17 08:49 90 MG Meclizine HCl (Antivert Tab) 25 mg QAM PO 03/15/17 09:00 04/14/17 08:59 03/21/17 08:52 25 MG Senna/Docusate Sodium (Senokot S Tab) 1 tab DAILY PRN PO 03/15/17 04:45 04/14/17 04:44 03/20/17 08:43 1 TAB Ondansetron HCl (Zofran Inj) 4 mg Q6H PRN IV 03/15/17 04:45 04/14/17 04:44 03/17/17 00:37 4 MG Insulin Aspart (novoLOG ASPART) SLIDING SCALE If C... ACHS SC 03/15/17 07:00 04/14/17 06:59 03/21/17 09:00 12 UNITS Glucose (Glucose 40% Gel) UD PRN PO 03/15/17 04:45 04/14/17 04:44 Glucose (Glucose Chew Tab) 1 tabs UD PRN PO 03/15/17 04:45 04/14/17 04:44 Dextrose (Dextrose 50% 50ML Syringe) 50 ml UD PRN IV 03/15/17 04:45 04/14/17 04:44 Glucagon (Glucagon Inj) 1 mg UD PRN SQ 03/15/17 04:45 04/14/17 04:44 Miscellaneous (Iv Fluids Completed) 1 ea PRN PRN N/A 03/15/17 04:45 03/15/18 04:44 Miscellaneous Information (Consult Glycemic Management Pharmacy) 1 ea UD N/A 03/15/17 09:18 04/14/17 09:17 Benzonatate (Tessalon Perles Cap) 100 mg TID PRN PO 03/15/17 09:15 04/14/17 09:14 03/15/17 14:52 100 MG Simvastatin (Zocor Tab) 40 mg HS PO 03/15/17 21:00 04/14/17 20:59 03/20/17 22:36 40 MG Potassium Chloride (Klor-Con Tab) 20 meq BID PO 03/18/17 09:00 04/17/17 08:59 03/21/17 08:49 20 MEQ Morphine Sulfate (MoRPHine SULFATE INJ) 2 mg Q2H PRN IV 03/17/17 08:00 03/31/17 07:59 03/19/17 09:57 2 MG Dicyclomine HCl (Bentyl Cap) 10 mg BID PO 03/18/17 20:00 04/17/17 20:59 03/21/17 08:48 10 MG Lidocaine (Lidoderm Patch 5%) 3 patch QAM TD 03/19/17 08:00 04/18/17 08:59 03/21/17 08:51 3 PATCH Miscellaneous (Remove Lidoderm Patch) 1 ea DAILY@21 N/A 03/18/17 21:00 04/17/17 20:59 03/20/17 21:00 1 EA Ferrous Sulfate (Feosol Tab) 325 mg BIDM PO 03/18/17 16:45 04/17/17 16:44 03/21/17 08:48 325 MG Methylnaltrexone [place] (Relistor Inj) 12 mg Q48H SQ 03/19/17 11:00 04/18/17 09:59 Future Hold 03/19/17 12:37 12 MG Tapentadol (Nucynta Tab) 50 mg Q4 PRN PO 03/19/17 16:00 04/01/17 15:59 03/20/17 14:21 50 MG Tapentadol (Nucynta Er Tab) 50 mg Q12 PO 03/19/17 21:00 04/18/17 20:59 03/21/17 08:48 50 MG Insulin Glargine (Lantus Solostar Pen) 18 units HS SC 03/20/17 22:00 04/19/17 21:59 03/20/17 22:29 18 UNITS Polyethylene (Miralax Powder Packet) 17 gm BID PO 03/20/17 20:00 04/19/17 19:59 03/21/17 08:47 17 GM Simethicone (Mylicon Chew Tab) 80 mg Q6H PRN PO 03/20/17 16:15 04/19/17 16:14 03/20/17 20:49 80 MG Objective Vital Signs Date Time Temp Pulse Resp B/P (MAP) Pulse Ox O2 Delivery O2 Flow Rate FiO2 03/21/17 08:00 Room Air 03/21/17 07:42 37.3 82 20 133/77 (95) 97 03/21/17 01:33 88 148/80 (102) 03/21/17 00:11 37.2 93 18 181/94 (123) 93 Room Air 03/20/17 23:59 Room Air 03/20/17 20:00 Room Air 03/20/17 15:45 Room Air 03/20/17 15:05 36.8 92 20 177/81 (113) 94 Room Air Physical Exam Notes: General Appearance: WD/WN, + no distress, + pertinent finding (sitting in her chair next to her bed, appears comfortable) ENT: hearing grossly normal, pharynx normal Neck: no carotid bruits Respiratory/Chest: lungs clear, no respiratory distress, no accessory muscle use, + pertinent finding (pain under left breast) Cardiovascular: regular rate, rhythm, no edema, no murmur Abdomen: normal bowel sounds, no organomegaly, general tenderness, appears bloated Extremities: normal inspection, no pedal edema, + pertinent finding (back pain at left lumbar paraspinal muscle) Neurologic/Psychiatric: alert, oriented x 3, Laboratory Results Results Past 24 Hours Test 03/20/17 16:12 03/20/17 20:25 03/21/17 07:06 03/21/17 07:22 Range/Units Bedside Glucose 181 141 173 70-90 mg/dl White Blood Count 8.55 4.8-10.8 K/uL Red Blood Count 3.66 4.2-5.4 M/uL Hemoglobin 9.3 12.0-16.0 g/dL Hematocrit 30.3 37-47 % Mean Corpuscular Volume 82.8 80-100 fL Mean Corpuscular Hemoglobin 25.4 25-34 pg Mean Corpuscular Hemoglobin Concent 30.7 32-36 g/dl RDW Standard Deviation 56.3 36.4-46.3 fL RDW Coefficient of Variation 19.8 11.5-14.5 % Platelet Count 275 130-400 K/uL Mean Platelet Volume 8.5 7.4-10.4 fL Sodium Level 135 136-145 mmol/L Potassium Level 3.5-5.1 mmol/L Chloride Level 105 98-107 mmol/L Carbon Dioxide Level 21 21-32 mmol/L Anion Gap 9.0 3-11 mmol/L Blood Urea Nitrogen 12 7-18 mg/dl Creatinine 1.20 0.60-1.20 mg/dl Est Creatinine Clear Calc Drug Dose 36.3 ml/min Estimated GFR () 49.1 Estimated GFR (Non- 42.4 BUN/Creatinine Ratio 9.9 10-20 Random Glucose 175 70-99 mg/dl Calcium Level 9.7 8.5-10.1 mg/dl Test 03/21/17 08:51 Range/Units Potassium Level 4.3 3.5-5.1 mmol/L Assessment and Plan 82 yo F with extensive medical history found to have 3 rib fractures and is having uncontrollable pain Back pain - hx of multiple rib fractures and spinal compression fractures - lumbar and thoracic xrays with no acute fractures - back brace - started Nucynta IR and ER. Increase dose of nucynta IR to 100. Also going to increase prednisone to 40mg PO to see if that helps with pain Abdominal pain - Extensive workup negative to date - KUB showed mild gaseous distension. ordered simethicone - GI started Relistor 12mg q2 days. Increased Miralax to 17g BID, continue Colace 100mg BID, Senokot prn. - Patient on pantoprazole PO qpm Chest Pain: - 3 Rib fractures on right side - CT Chest: no airspace consolidation or pleural effusion, no acute infectious or inflammatory findings Anemia: - Iron Studies consistent with Iron Def. Anemia - Hgb stable - ferrous sulfate 325mg bid T2DM: - Glycemic consult Paroxysmal Afib/ CAD - restarted Statin -Continue to monitor Anxiey /Depression - C/w Lexapro, Topiramate Itchiness at night - benadryl Arthritis - prednisone 40mg daily DVT Prophylaxis - Start Heparin Diet - Type 2 DM diet Disposition -PTOT -Patient is as resident of [facility] DNR -- Resident Physician Supervision Note: I was present with PGY2 Dr. Jimmy Hyatt during the history and exam. I discussed the case with the resident and agree with the findings and plan as documented in the note. Any exceptions or clarifications are listed here: none. During rounds today Ms. Hou actually smiled and looked the best she had all week. c/o left rib pain; didn't really mention her back pain or her abdominal pain. She ate breakfast AND lunch today; only had mild nausea following lunch. Had numerous stools yesterday with flatus; feels better. VSS no fever gen - NAD, not as anxious or teary today neck - no JVD heart - RRR lungs - CTA b/l chest - tender left lower chest wall - no change abd - mild distension on exam - maybe slightly better today; LUQ discomfort ( mild) with palpation; BS+ ext - no edema A/P: 1. abdominal pain - slowly improving. extensive work-up this admission along with GI consultation. admitted for similar symptoms in 01/2016. seen by Sameer GUADARRAMA during that stay - etiology was not found. gallstones present on CT but no signs of acute cholecystitis. HIDA Negative. CT abd/pelvis x 2 this admission w/o acute pathology. Sameer GUADARRAMA felt that much of the issue was stool/constipation. Given relistor and miralax prep with NUMEROUS STOOLS last 48 hours. Relistor held since she had so much passage of stool yesterday. Will cont aggressive bowel maintenance regimen. Mylicon for flatulence/gas. 2. left-sided rib fractures - lidoderm/nucynta IR and ER. 3. lumbar back pain - acute/chronic - repeat L-spine and T-spine without new compression Fx's. Back brace by Osmany Mcdonnell ordered and delivered. Cont nucynta ER 50mg q12h and continue nucynta IR 50mg q4h prn try to avoid morphine due to #1 will give some higher doses of prednisone for a few days as well. other chronic medical problems stable repeat labs in am Documented By: Demario Baez MD Continued [facility] stay due to: inadequate oral pain control
[2017-03-21] MEDS: ONDANSETRON INJ 2 MG/ML 2 ML VIAL IV PRN (13:58)
--- NOTE | 2017-03-21 14:26 | Pharmacy Progress Note ---
Glycemic Control Progress Note Date of Service Mar 21, 2017. Scope Glycemic Pharmacist consulted for glycemic control to write orders per [facility] inpatient glycemic control protocol. Objective Accuchecks BSG (last 24hrs): Test 03/20/17 16:12 03/20/17 20:25 03/21/17 07:06 03/21/17 07:22 Bedside Glucose 181 mg/dl (70-90) 141 mg/dl (70-90) 173 mg/dl (70-90) Random Glucose 175 mg/dl (70-99) Test 03/21/17 11:10 Bedside Glucose 172 mg/dl (70-90) Recent Pertinent Medications The patient is currently receiving: * Basal insulin: Lantus 18 units every 24 hours * Correctional Insulin: Novolog Correction per scale ACHS Goal Range: Low 100 mg/dL - High 140 mg/dL Correction Factor: 20 mg/dL/unit * Prandial insulin: Per carb ratio of 1 unit per 7 grams CHO consumed Outpatient Anti-Diabetic Meds Lantus 15 units sq HS Assessment & Plan ASSESSMENT: * See progress note from 03/15/17 for more background info, in short: * Pt receiving SQ basal bolus insulin regimen for hyperglycemia. Of note, prednisone was increased from 5 to 40 mg today. * Patient is currently receiving an average of ~40 units of insulin per day * 18 units of basal insulin * 21 units of prandial/correctional insulin * BSGs ranging 141 - 181 mg/dl over the past 24hrs * Changes needed to insulin regimen: * AM Fasting BSG = 173 mg/dl. This remains slightly above goal range for patient based on inpatient targets and co-morbidities despite recent increase from 15 to 18 units. Will further increase Lantus by ~20 % today. I believe the patient will tolerate this increase since she was also started on Prednisone 40 mg daily today. * Post-prandial BSGs are slightly above goal range. I anticipate that patient needing more aggressive bolus parameters since being started on Prednisone 40 mg po daily. Steroids have the most profound effect on prandial BSGs. PLAN FOR INPATIENT GLYCEMIC CONTROL: * Increasing Lantus to 22 units SQ qHS * Tighten correction factor to 18 mg/dl/unit * Tighten carb ratio to 1 unit per 6 grams CHO consumed * Continuing goal range to Low 100 mg/dL - High 140 mg/dL * Add check with coverage at 0200 RECOMMENDATIONS FOR DISCHARGE: * Recommend resuming out patient regimen on discharge - patient has good out patient control evidenced by A1c of 6% (12/31/16) * Please note that the plan above was derived based on current level of insulin resistance and hospital stress. These recommendations are appropriate for inpatient admission only. Plan of care upon discharge will need to be reassessed to avoid potential outpatient hypo/hyperglycemia. Thank you.
[2017-03-21 15:03] VITALS: BP 108/68; PULSE 78; TEMP 36.7; O2SAT 97
[2017-03-21] MEDS: TAPENTADOL HCL 50 MG TAB PO PRN (19:42)
[2017-03-21] MEDS: SIMVASTATIN 40 MG TAB PO SCH (21:23)
[2017-03-21] MEDS: PANTOprazole SOD 40 MG TAB PO SCH (21:23)
[2017-03-21] MEDS ORDERED: INSULIN GLARGINE SOLOSTAR 100 UNITS/ML 3 ML PEN SC SCH (22:00)
[2017-03-21 23:42] VITALS: BP 135/80; PULSE 83; TEMP 36.4; O2SAT 96
[2017-03-22] MEDS ORDERED: INSULIN ASPART 100 UNITS/ML 3 ML PEN SC SCH (02:00)
[2017-03-22 07:24] LABS: BUN/CREATININE RATIO 15.5 (10-20); CALCIUM 9.7 mg/dl (8.5-10.1); CREATININE 1.2 mg/dl (0.60-1.20); POTASSIUM 4.7 mmol/L (3.5-5.1)
[2017-03-22 07:36] VITALS: BP 148/74; PULSE 72; TEMP 36.4; O2SAT 96
[2017-03-22] MEDS: ESCITALOPRAM OXALATE 20 MG TAB PO SCH (08:35)
[2017-03-22] MEDS: DOCUSATE SODIUM 100 MG CAP PO SCH ×2 (08:35→20:19)
[2017-03-22] MEDS: DICYCLOMINE HCL 10 MG CAP PO SCH ×2 (08:35→20:19)
[2017-03-22] MEDS: TAPENTADOL ER 50 MG TABCR PO SCH ×2 (08:35→20:20)
[2017-03-22] MEDS: FERROUS SULFATE 325 MG TAB PO SCH ×2 (08:36→16:49)
[2017-03-22] MEDS: POTASSIUM CHLORIDE 20 MEQ TABCR PO SCH ×2 (08:36→20:19)
[2017-03-22] MEDS: MECLIZINE HCL 25 MG TAB PO SCH (08:36)
[2017-03-22] MEDS: TOPIRAMATE 100 MG TAB PO SCH ×2 (08:37→20:19)
[2017-03-22] MEDS: POLYETHYLENE (MIRALAX) 17 GM PACK PO SCH ×2 (08:38→20:19)
[2017-03-22] MEDS: LIDODERM (LIDOCAINE) PATCH 5% TD SCH (08:38)
[2017-03-22] MEDS: ISOSORBIDE MONONITRATE 30 MG TABCR PO SCH (08:38)
[2017-03-22] MEDS: ARTIFICIAL TEARS OP SOLN OPB SCH ×6 (08:41→15:38)
[2017-03-22] MEDS: INSULIN ASPART 100 UNITS/ML 3 ML PEN SC SCH ×4 (08:43→21:34)
[2017-03-22] MEDS: TAPENTADOL HCL 50 MG TAB PO PRN ×2 (10:00→22:20)
[2017-03-22] MEDS: MoRPHine SULFATE 2 MG/ML CARP IV PRN ×2 (10:37→23:13)
--- NOTE | 2017-03-22 12:16 | Family Medicine Progress Note ---
Progress Note Date of Service Mar 22, 2017. Subjective Pt evaluation today including: conversation w/ patient, physical exam, chart review, conversation w/ corporate travel consultant, review of inpatient medication list Pain: 8/10 PO Intake: good Voiding: no voiding problems Her pain is much improved. "I am feeling great today". She still rates her pain as an 8/10 but says she feels much better. Shortly after leaving the room I was called by the nurse to say she was having excruciating chest pain and rib pain. We ordered a stat EKG and troponins. She has been eating well, moving her bowels. Constitutional: No fever, No chills Respiratory: No cough, No shortness of breath Cardiovascular: + chest pain, No edema, No palpitations Breast: + breast pain Abdomen: No pain, No nausea, No vomiting, No diarrhea, No constipation Musculoskeletal: + joint pain, No swelling Female : No dysuria, No urinary frequency Medications Current Inpatient Medications Medications (Trade) Dose Ordered Sig/Phil Route Start Time Stop Time Status Last Admin Dose Admin Acetaminophen (Tylenol Tab) 650 mg Q4H PRN PO 03/15/17 04:45 04/14/17 04:44 03/18/17 11:19 650 MG Nitroglycerin (Nitrostat Tab) 0.4 mg UD PRN SL 03/15/17 04:45 04/14/17 04:44 Albuterol (Ventolin Hfa Inhaler) 2 puffs Q4 PRN INH 03/15/17 04:45 04/14/17 04:44 Diphenhydramine HCl (Benadryl Cap) 25 mg HS PO 03/15/17 21:00 04/14/17 20:59 03/21/17 21:23 25 MG Escitalopram Oxalate (Lexapro Tab) 20 mg DAILY PO 03/15/17 09:00 04/14/17 08:59 03/22/17 08:35 20 MG Pantoprazole Sodium (Protonix Tab) 40 mg QPM PO 03/15/17 21:00 04/14/17 20:59 03/21/17 21:23 40 MG Topiramate (Topamax Tab) 200 mg BID PO 03/15/17 09:00 04/14/17 08:59 03/22/17 08:37 200 MG Artificial Tears (Artificial Tears) 2 drops QS OPB 03/15/17 08:00 04/14/17 07:59 03/22/17 08:41 2 DROPS Docusate Sodium (coLACE CAP) 100 mg BID PO 03/15/17 09:00 04/14/17 08:59 03/22/17 08:35 100 MG Isosorbide Mononitrate (Imdur Ext Rel Tab) 90 mg QAM PO 03/15/17 09:00 04/14/17 08:59 03/22/17 08:38 90 MG Meclizine HCl (Antivert Tab) 25 mg QAM PO 03/15/17 09:00 04/14/17 08:59 03/22/17 08:36 25 MG Senna/Docusate Sodium (Senokot S Tab) 1 tab DAILY PRN PO 03/15/17 04:45 04/14/17 04:44 03/20/17 08:43 1 TAB Ondansetron HCl (Zofran Inj) 4 mg Q6H PRN IV 03/15/17 04:45 04/14/17 04:44 03/21/17 13:58 4 MG Insulin Aspart (novoLOG ASPART) SLIDING SCALE If C... ACHS SC 03/15/17 07:00 04/14/17 06:59 03/22/17 08:43 14 UNITS Glucose (Glucose 40% Gel) UD PRN PO 03/15/17 04:45 04/14/17 04:44 Glucose (Glucose Chew Tab) 1 tabs UD PRN PO 03/15/17 04:45 04/14/17 04:44 Dextrose (Dextrose 50% 50ML Syringe) 50 ml UD PRN IV 03/15/17 04:45 04/14/17 04:44 Glucagon (Glucagon Inj) 1 mg UD PRN SQ 03/15/17 04:45 04/14/17 04:44 Miscellaneous (Iv Fluids Completed) 1 ea PRN PRN N/A 03/15/17 04:45 03/15/18 04:44 Miscellaneous Information (Consult Glycemic Management Pharmacy) 1 ea UD N/A 03/15/17 09:18 04/14/17 09:17 Benzonatate (Tessalon Perles Cap) 100 mg TID PRN PO 03/15/17 09:15 04/14/17 09:14 03/15/17 14:52 100 MG Simvastatin (Zocor Tab) 40 mg HS PO 03/15/17 21:00 04/14/17 20:59 03/21/17 21:23 40 MG Potassium Chloride (Klor-Con Tab) 20 meq BID PO 03/18/17 09:00 04/17/17 08:59 03/22/17 08:36 20 MEQ Morphine Sulfate (MoRPHine SULFATE INJ) 2 mg Q2H PRN IV 03/17/17 08:00 03/31/17 07:59 03/22/17 10:37 2 MG Dicyclomine HCl (Bentyl Cap) 10 mg BID PO 03/18/17 20:00 04/17/17 20:59 03/22/17 08:35 10 MG Lidocaine (Lidoderm Patch 5%) 3 patch QAM TD 03/19/17 08:00 04/18/17 08:59 03/22/17 08:38 3 PATCH Miscellaneous (Remove Lidoderm Patch) 1 ea DAILY@21 N/A 03/18/17 21:00 04/17/17 20:59 03/21/17 21:23 1 EA Ferrous Sulfate (Feosol Tab) 325 mg BIDM PO 03/18/17 16:45 04/17/17 16:44 03/22/17 08:36 325 MG Methylnaltrexone [place] (Relistor Inj) 12 mg Q48H SQ 03/19/17 11:00 04/18/17 09:59 Future Hold 03/19/17 12:37 12 MG Tapentadol (Nucynta Er Tab) 50 mg Q12 PO 03/19/17 21:00 04/18/17 20:59 03/22/17 08:35 50 MG Polyethylene (Miralax Powder Packet) 17 gm BID PO 03/20/17 20:00 04/19/17 19:59 03/22/17 08:38 17 GM Simethicone (Mylicon Chew Tab) 80 mg Q6H PRN PO 03/20/17 16:15 04/19/17 16:14 03/20/17 20:49 80 MG Prednisone (PredniSONE TAB) 40 mg QAM PO 03/22/17 08:00 04/14/17 08:59 03/22/17 08:37 40 MG Tapentadol (Nucynta Tab) 100 mg Q4H PRN PO 03/21/17 12:28 04/20/17 12:27 03/22/17 10:00 100 MG Insulin Glargine (Lantus Solostar Pen) 22 units HS SC 03/21/17 22:00 04/20/17 21:59 03/21/17 21:49 22 UNITS Objective Vital Signs Date Time Temp Pulse Resp B/P (MAP) Pulse Ox O2 Delivery O2 Flow Rate FiO2 03/22/17 07:36 36.4 72 20 148/74 (98) 96 03/21/17 23:59 Room Air 03/21/17 23:42 36.4 83 18 135/80 (98) 96 Room Air 03/21/17 16:00 Room Air 03/21/17 15:03 36.7 78 20 108/68 (81) 97 Physical Exam General Appearance: WD/WN, no apparent distress, + pertinent finding (sitting comfortably and smiling at the side of her bed, right eye is externally abducted ) Respiratory/Chest: chest non-tender, lungs clear, normal breath sounds, no respiratory distress, no accessory muscle use Cardiovascular: regular rate, rhythm, no murmur Abdomen: normal bowel sounds, non tender, soft, + distended Extremities: non-tender, no pedal edema, no calf tenderness Neurologic/Psychiatric: alert, normal mood/affect, oriented x 3 Skin: normal color, warm/dry, no rash Laboratory Results Results Past 24 Hours Test 03/21/17 16:03 03/21/17 20:25 03/22/17 01:57 03/22/17 06:31 Range/Units Bedside Glucose 195 223 207 70-90 mg/dl Sodium Level 137 136-145 mmol/L Potassium Level 4.7 3.5-5.1 mmol/L Chloride Level 110 98-107 mmol/L Carbon Dioxide Level 19 21-32 mmol/L Anion Gap 8.0 3-11 mmol/L Blood Urea Nitrogen 19 7-18 mg/dl Creatinine 1.20 0.60-1.20 mg/dl Est Creatinine Clear Calc Drug Dose 36.3 ml/min Estimated GFR () 49.1 Estimated GFR (Non- 42.4 BUN/Creatinine Ratio 15.5 10-20 Random Glucose 169 70-99 mg/dl Calcium Level 9.7 8.5-10.1 mg/dl Test 03/22/17 07:27 03/22/17 11:44 Range/Units Bedside Glucose 185 70-90 mg/dl Assessment and Plan 82 yo F with extensive medical history found to have 3 rib fractures and is having uncontrollable pain Chest Pain: - New onset central chest pain. EKG ordered and troponins x2 - 3 Rib fractures on right side - CT Chest: no airspace consolidation or pleural effusion, no acute infectious or inflammatory findings Back pain - hx of multiple rib fractures and spinal compression fractures - lumbar and thoracic xrays with no acute fractures - back brace - started Nucynta IR and ER. Increase dose of nucynta IR to 100. Also going to increase prednisone to 40mg PO to see if that helps with pain Abdominal pain - Extensive workup negative to date - KUB showed mild gaseous distension. ordered simethicone - GI started Relistor 12mg q2 days continue Colace 100mg BID, Switched miralax to OD and Senokot prn. - Patient on pantoprazole PO qpm Anemia: - Iron Studies consistent with Iron Def. Anemia - Hgb stable - ferrous sulfate 325mg bid T2DM: - Glycemic consult Paroxysmal Afib/ CAD - restarted Statin -Continue to monitor Anxiey /Depression - C/w Lexapro, Topiramate Itchiness at night - benadryl Arthritis - prednisone 40mg daily DVT Prophylaxis - Start Heparin Diet - Type 2 DM diet Disposition -PTOT -Patient is as resident of [facility] DNR Resident Physician Supervision Note: I was present with PGY2 Dr. Jimmy Hyatt during the history and exam. I discussed the case with the resident and agree with the findings and plan as documented in the note. Any exceptions or clarifications are listed here: rib fractures are on the left, not the right side. Events of this am noted (patient had severe back pain, chest pain, etc). By the time of our bedside rounds she was working with physical therapy and was very comfortable. She walked in the hallway with a walker and used her back brace. She otherwise is feeling good - eating well, passing flatus, less distension of the abdomen, and in better spirits (smiling, etc). VSS no fever gen - NAD; during the visit she was VERY comfortable, in good spirits, smiling neck - no JVD heart - RRR lungs - CTA b/l abd - distension again improved, BS+, NT ext - no edema A/P: 1. abdominal pain - resolved. extensive work-up this admission negative (CTs x 2, HIDA scan, x-rays, etc). Sameer GUADARRAMA felt this was due to constipation. Received relistor x 1 and miralax bowel prep with resolution of symptoms. Most recent kub with "colonic ileus" but she is passing plenty of flatus and eating well at this point. 2. left-sided rib fractures - lidoderm/nucynta IR and ER. 3. lumbar back pain - acute/chronic - repeat L-spine and T-spine without new compression Fx's. Back brace by Osmany Mcdonnell ordered and delivered. Cont nucynta ER 50mg q12h and continue nucynta IR 100mg q4h prn try to avoid morphine due to #1 on prednisone taper as well - cut to 30mg in am and continue to taper to chronic dose of 5mg daily 4. chest pain - has had numerous troponins and EKGs this admission - all normal /negative. EKG today unchanged. ECHO in early 2017 with normal EF and normal wall motion. If she continues to have chest pain would need additional work-up. 5. Fe Def anemia - cont Fe supplementation. Outpatient EGD/colonoscopy planned by Sameer GUADARRAMA. d/c back to [facility] thursday? Documented By: Demario Baez MD Continued [facility] stay due to: other
[2017-03-22] MEDS: HEPARIN SOD 5000 UNIT/0.5 ML CARP SQ SCH ×2 (14:23→21:35)
[2017-03-22 14:54] VITALS: BP 123/74; PULSE 72; TEMP 36.6; O2SAT 97
--- NOTE | 2017-03-22 14:57 | Pharmacy Progress Note ---
Glycemic Control Progress Note Date of Service Mar 22, 2017. Scope Glycemic Pharmacist consulted for glycemic control to write orders per [facility] inpatient glycemic control protocol. Objective Accuchecks BSG (last 24hrs): Test 03/21/17 16:03 03/21/17 20:25 03/22/17 01:57 03/22/17 06:31 Bedside Glucose 195 mg/dl (70-90) 223 mg/dl (70-90) 207 mg/dl (70-90) Random Glucose 169 mg/dl (70-99) Test 03/22/17 07:27 03/22/17 11:06 Bedside Glucose 185 mg/dl (70-90) 193 mg/dl (70-90) Recent Pertinent Medications The patient is currently receiving: * Basal insulin: Lantus 22 units every 24 hours * Correctional Insulin: Novolog Correction per scale ACHS Goal Range: Low 100 mg/dL - High 140 mg/dL Correction Factor: 18 mg/dL/unit * Prandial insulin: Per carb ratio of 1 unit per 6 grams CHO consumed Assessment & Plan ASSESSMENT: * See progress note from 03/15/17 for more background info, in short: * Pt receiving SQ basal bolus insulin regimen. She is experiencing steroid induced hyperglycemia secondary to increase in Prednisone from 5 to 40 mg daily on 03/21. * Patient is currently receiving an average of ~63 units of insulin per day * 22 units of basal insulin * 41 units of prandial/correctional insulin * BSGs ranging 169 - 223 mg/dl over the past 24hrs * Changes needed to insulin regimen: * I anticipate the patient needed ~70-75 units of insulin per day while on Prednisone 40 mg * Will attempt to distribute regimen 60 % bolus and 40 % basal since steroids have the most profound effect on prandial BSGs. * AM Fasting BSG = 185 mg/dl. This remains slightly above goal range for patient based on inpatient targets and co-morbidities despite recent increase from 18 to 22 units. Will further increase Lantus today. * Post-prandial BSGs are slightly above goal range. Will further tighten CF/CR. PLAN FOR INPATIENT GLYCEMIC CONTROL: * Increasing Lantus to 25 units SQ qHS * Tighten correction factor to 15 mg/dl/unit * Tighten carb ratio to 1 unit per 5 grams CHO consumed * Continuing goal range to Low 100 mg/dL - High 140 mg/dL RECOMMENDATIONS FOR DISCHARGE: * Recommend resuming out patient regimen on discharge (Patient takes Prednisone 5 mg po daily chronically. She may require short term increase in Lantus if she is discharged on a higher dose of steroids) * Good out patient control evidenced by A1c of 6% (12/31/16) * Please note that the plan above was derived based on current level of insulin resistance and hospital stress. These recommendations are appropriate for inpatient admission only. Plan of care upon discharge will need to be reassessed to avoid potential outpatient hypo/hyperglycemia. Thank you.
--- NOTE | 2017-03-22 19:24 | Progress Note ---
Progress Note Date of Service Mar 22, 2017. Progress Note If troponins continue to be negative I suspect her pain is musculoskeletal from her left-sided rib fractures. Referred pain from thoracic nerve impingement also possible (has numerous old compression fractures). Cannot r/o anxiety contributing as well. Demario Baez MD
[2017-03-22] MEDS: PANTOprazole SOD 40 MG TAB PO SCH (20:20)
[2017-03-22] MEDS: SIMVASTATIN 40 MG TAB PO SCH (21:32)
[2017-03-22] MEDS ORDERED: INSULIN GLARGINE SOLOSTAR 100 UNITS/ML 3 ML PEN SC SCH (22:00)
[2017-03-22] MEDS: SIMETHICONE 80 MG CHEW PO PRN (23:45)
[2017-03-23 00:34] VITALS: BP 179/102; PULSE 99; TEMP 36.9; O2SAT 95
[2017-03-23] MEDS: HEPARIN SOD 5000 UNIT/0.5 ML CARP SQ SCH ×2 (06:20→12:25)
[2017-03-23 07:25] VITALS: BP 148/76; PULSE 76; TEMP 36.6; O2SAT 95
[2017-03-23 08:00] VITALS: O2SAT 95
[2017-03-23] MEDS: DICYCLOMINE HCL 10 MG CAP PO SCH (08:03)
[2017-03-23] MEDS: ARTIFICIAL TEARS OP SOLN OPB SCH ×4 (08:03)
[2017-03-23] MEDS: TOPIRAMATE 100 MG TAB PO SCH (08:04)
[2017-03-23] MEDS: ESCITALOPRAM OXALATE 20 MG TAB PO SCH (08:04)
[2017-03-23] MEDS: ISOSORBIDE MONONITRATE 30 MG TABCR PO SCH (08:04)
[2017-03-23] MEDS: MECLIZINE HCL 25 MG TAB PO SCH (08:04)
[2017-03-23] MEDS: DOCUSATE SODIUM 100 MG CAP PO SCH (08:04)
[2017-03-23] MEDS: POLYETHYLENE (MIRALAX) 17 GM PACK PO SCH (08:05)
[2017-03-23] MEDS: FERROUS SULFATE 325 MG TAB PO SCH (08:05)
[2017-03-23] MEDS: POTASSIUM CHLORIDE 20 MEQ TABCR PO SCH (08:05)
[2017-03-23] MEDS: LIDODERM (LIDOCAINE) PATCH 5% TD SCH (08:06)
[2017-03-23] MEDS: TAPENTADOL ER 50 MG TABCR PO SCH (08:17)
[2017-03-23] MEDS: INSULIN ASPART 100 UNITS/ML 3 ML PEN SC SCH ×2 (08:59→12:16)
[2017-03-23] MEDS: TAPENTADOL HCL 50 MG TAB PO PRN (10:23)
[2017-03-23 10:54] VITALS: BP 148/76; PULSE 76; TEMP 36.6; O2SAT 95
--- NOTE | 2017-03-23 11:09 | Pharmacy Progress Note ---
Glycemic Control Progress Note Date of Service Mar 23, 2017. Scope Glycemic Pharmacist consulted for glycemic control to write orders per [facility] inpatient glycemic control protocol. Objective Accuchecks BSG (last 24hrs): Test 03/22/17 11:06 03/22/17 16:04 03/22/17 20:09 03/23/17 0700 Bedside Glucose 193 mg/dl 239 mg/dl 179 mg/dl 128mg/dl HbA1c: 6% on 12/31/16 Recent Pertinent Medications The patient is currently receiving: * Basal insulin: Lantus 25 units every 24 hours given at bedtime * Correctional Insulin: Novolog Correction per scale ACHS Goal Range: Low 100 mg/dL - High 140 mg/dL Correction Factor: 15 mg/dL/unit * Prandial insulin: Per carb ratio of 1 unit per 5 grams CHO consumed Outpatient Anti-Diabetic Meds Basal Insulin Assessment & Plan ASSESSMENT: * See progress note from 03/22/17 for more background info, in short: * Pt receiving SQ basal bolus insulin regimen for hyperglycemia secondary to baseline DM, steroids * Patient is currently receiving an average of ~80 units of insulin per day * 25 units of basal insulin * 55 units of prandial/correctional insulin * BSGs ranging 128 - 239 mg/dl over the past 24hrs * Changes needed to insulin regimen: * AM Fasting BSG = 128 mg/dl. This is in goal range for patient based on inpatient targets and co-morbidities. Therefore no changes needed to basal insulin * Post-prandial BSGs are elevated/BSGs rise throughout the day therefore need to tighten CF/CR. However, prednisone dosing decreased/tapered today which will improve post-prandial hyperglycemia. Will empirically loosen parameters for step down in steroid dosing * Total daily dose is weighted towards prandial/correctional insulin. However, this is the preferred distribution for steroid induced hyperglycemia. PLAN FOR INPATIENT GLYCEMIC CONTROL: * Basal insulin; no change, may need to decrease with each step down in steroid dosing * Lantus 25 units SQ HS * Bolus insulin: loosen parameters for decrease in prednisone dose today * NovoLog per scale ACHS or Q6hrs while NPO * Goal Range: Low 100 mg/dL - High 140 mg/dL * Correction Factor: 18 mg/dL/unit * Nutritional / Prandial insulin per carb ratio of 1 unit per 6 grams CHO consumed RECOMMENDATIONS FOR DISCHARGE: * Recommend resuming out patient regimen on discharge (Patient takes Prednisone 5 mg po daily chronically. She may require short term increase in Lantus if she is discharged on a higher dose of steroids) * Good out patient control evidenced by A1c of 6% (12/31/16) * Please note that the plan above was derived based on current level of insulin resistance and hospital stress. These recommendations are appropriate for inpatient admission only. Plan of care upon discharge will need to be reassessed to avoid potential outpatient hypo/hyperglycemia. Thank you.
[2017-03-23] MEDS ORDERED: FRRS300 PO (11:12)
[2017-03-23] MEDS ORDERED: NCY50 PO (11:12)
[2017-03-23] MEDS ORDERED: PRD10 PO (11:12)
[2017-03-23] MEDS ORDERED: NCYSR50 PO (11:12)
[2017-03-23] MEDS ORDERED: MYL80 PO (11:12)
--- NOTE | 2017-03-23 11:16 | Discharge Instructions ---
Discharge Instructions Date of Service Mar 23, 2017. Admission Reason for Admission: Abdominal Pain, Chest Pain Radiating To Arm Discharge Discharge Diagnosis / Problem: Rib Fractures and Uncontrollable pain from compression fractures Discharge Goals Goal(s): Decrease discomfort, Improve function, Screening Activity Recommendations Activity Limitations: per Instructions/Follow-up section . Instructions / Follow-Up Instructions / Follow-Up We will be sending you home with nucynta IR and ER for your pain as well as a taper of steroids You were found to have 3 rib fractures on your left side Please continue to be active with rehab at [facility]. Your doctors will consider additional medications if they are unable to control your pain Current Hospital Diet Patient's current hospital diet: Diabetes Type 2 Diet Discharge Diet Recommended Diet: Diabetes Type 2 Diet Pending Studies Studies pending at discharge: no Laboratory Results Hemoglobin A1c Test 12/31/16 11:45 Range/Units Estimated Average Glucose 126 mg/dl Hemoglobin A1c 6.0 H 4.5-5.6 % Lipid Panel Test 02/19/17 05:10 Range/Units Triglycerides Level 354 H 0-150 mg/dl Cholesterol Level 211 H 0-200 mg/dl HDL Cholesterol 44 mg/dl Cholesterol/HDL Ratio 4.8 LDL Cholesterol, Calculated 96 mg/dl Medical Emergencies . Who to Call and When: Medical Emergencies: If at any time you feel your situation is an emergency, please call 911 immediately. . Non-Emergent Contact Non-Emergency issues call your: Primary Care Provider . . "Provider Documentation" section prepared by Jimmy Hyatt. . VTE Core Measure Inpt VTE Proph given/why not?: SCD's
--- NOTE | 2017-03-23 13:16 | Discharge Summary ---
Discharge Summary Date of Service Mar 23, 2017. (Jimmy Hyatt MD) Discharge Summary Admission Date: Mar 17, 2017 at 19:17 Discharge Date: Mar 23, 2017 Discharge Disposition: [facility] facility Principal Diagnosis: 3 rib fractures and constipation Problems/Secondary Diagnoses: (1) Blind right eye Status: Chronic (2) Depression Status: Chronic Immunizations: Have You Had Influenza Vaccine: No History of Tetanus Vaccine?: utd History of Pneumococcal: Yes Pneumococcal Date: Sep 24, 2010 History of Hepatitis B Vaccine: No Consultations: GI (Jimmy Hyatt MD) Medication Reconciliation New Medications: Ferrous Sulfate (Ferrous Sulfate) 325 Mg Tab 325 MG PO BIDM for 30 Days, #30 TAB Prednisone (Prednisone) 10 Mg Tab 10 MG PO QAM, #12 TAB Take 3 tablets for day 1-2 Take 2 tablets for day 3-4 Take 1 tablet for day 5-6 Simethicone (Mi-Acid Gas Relief) 80 Mg Chew 80 MG PO Q6H PRN for Bloating, #30 TAB Tapentadol HCl (Nucynta) 50 Mg Tab 100 MG PO Q4H PRN for Pain, #60 TAB Tapentadol HCl (Nucynta ER) 50 Mg Tabcr 75 MG PO Q12, #30 Continued Medications: Acetaminophen (Tylenol) 325 Mg Tab 650 MG PO Q6 PRN for Pain DO NOT EXCEED 3GM APAP/24HR Acetaminophen (Tylenol) 325 Mg Tab 650 MG PO Q6 PRN for TEMP>100 NOT TO EXCEED 3GM APAP/24HR Albuterol Hfa (Ventolin Hfa) 200 Puffs/14980 Mcg Aers 1-2 PUFFS INH Q4 PRN for Shortness of Breath, #1 INHALER Alendronate Sodium (Fosamax) 70 Mg Tab 70 MG PO WK, #4 TAKE ON SATURDAYS. TAKE 30 MIN PRIOR TO FOOD/OTHER MEDS. REMAIN UPRIGHT FOR AT LEAST 30 MINS. Calcium Carbonate-Vitamin D (Oscal 500/200 D-3) 1 Tab Tab 1 TAB PO AMPM TAKE WITH BREAKFAST & SUPPER Diphenhydramine Hcl (Benadryl Allergy) 25 Mg Cap 25 MG PO HS Dipyridamole/Aspirin (Aggrenox 25-200 mg) 1 Cap Cap 1 CAP PO BID, 5 Refills Docusate Sodium (Colace) 100 Mg Cap 100 MG PO BID Escitalopram Oxalate (Lexapro) 20 Mg Tab 20 MG PO DAILY, TAB Furosemide (Lasix) 80 Mg Tab 80 MG PO BID, TAB Zpqhjzia-Pvacccklmayi-Vwrenzwb (Artificial Tears) 1 Donavan Donavan 2 DROPS OPB QS Insulin Glargine (Lantus Solostar) 100 Unit/Ml Inj 15 UNITS SC HS Isosorbide Mononitrate (Isosorbide Mononitrate ER) 30 Mg Tabcr 90 MG PO QAM 3 TABLET DOSE Meclizine Hcl (Meclizine Hcl) 25 Mg Tab 25 MG PO QAM Nitroglycerin (Nitrostat) 0.4 Mg Tab 0.4 MG UT PRN, BTL PRN EVERY 5 MINUTES X3 FOR CHEST PAIN Pantoprazole (Protonix) 40 Mg Tab 40 MG PO QPM Polyethylene Glycol 3350 (Miralax) 1 Pow Pow 17 GM PO DAILY Potassium Chloride Microencaps (Potassium Chloride Er) 20 Meq Tab 2 TAB PO DAILY, 3 Refills Prednisone (Prednisone) 5 Mg Tab 5 MG PO QAM Ranolazine (Ranexa) 1,000 Mg Tab 1000 MG PO BID, 3 Refills Sennosides-Docusate Sodium (Senna Plus) 1 Tab Tab 1 TAB PO Q24H PRN for Constipation Simvastatin (Zocor) 40 Mg Tab 40 MG PO HS, TAB Topiramate (Topamax) 200 Mg Tab 200 MG PO BID, TAB Discontinued Medications: Tramadol (Ultram) 50 Mg Tab 50 MG PO Q6 PRN for Pain, TAB Discharge Exam Patient had significant rib pain yesterday evening. Received a dose of morphine and her pain resolved substantially. Is eating well, urinating regularly and had a bm this morning. She said she is ready to go back to [facility]. Review of Systems: Constitutional: No fever, No chills, No sweats Respiratory: No cough, No sputum, No shortness of breath Cardiovascular: + chest pain, No edema, No palpitations Abdomen: No pain, No nausea, No vomiting, No diarrhea, No constipation Musculoskeletal: No joint pain, No muscle pain, No swelling Physical Exam: General Appearance: WD/WN, no apparent distress ENT: hearing grossly normal, pharynx normal Neck: supple, no JVD, trachea midline Respiratory/Chest: lungs clear, no respiratory distress, no accessory muscle use, + pertinent finding (pain to palpation over left ribs) Cardiovascular: no edema, no JVD, no murmur, + irregularly irregular Abdomen / GI: normal bowel sounds, non tender, soft (Jimmy Hyatt MD) Hospital Course 82 yo F with extensive medical history found to have 3 rib fractures and was constipated on KUB Back pain - hx of multiple rib fractures and spinal compression fractures - lumbar and thoracic xrays with no acute fractures - back brace - started Nucynta IR and ER. Discharged with these meds - Was also discharged with steroid taper dose for prednisone - Patient would benefit from either lyrica or gabapentin if pain is uncontrolled - She would also benefit from possibly a SNRI for depression with pain as a secondary benefit Abdominal pain - Extensive workup negative (Ct abdomen, KUB and HIDA scan) - likely referred pain from spinal compression fractures - KUB showed mild gaseous distension. ordered simethicone - Discharged with miralax OD, Colace bid and pantoprazole and senna - Will need to follow up with GI as outpatient for colonoscopy Chest Pain: - 3 Rib fractures on right side - CT Chest: no airspace consolidation or pleural effusion, no acute infectious or inflammatory findings - EKG with no changes and troponins negative Anemia: - Iron Studies consistent with Iron Def. Anemia - Hgb stable - ferrous sulfate 325mg bid T2DM: - Glycemic consult Paroxysmal Afib/ CAD - restarted Statin Anxiey /Depression - C/w Lexapro, Topiramate Itchiness at night - benadryl Arthritis/Osteoporosis - prednisone 30mg daily with taper on discharge - alendronate DVT Prophylaxis - Start Heparin Diet - Type 2 DM diet Disposition -PTOT -Patient is as resident of [facility] DNR Total Time Spent: Less than 30 minutes This includes examination of the patient, discharge planning, medication reconciliation, and communication with other providers. (Jimmy Hyatt MD) Resident Physician Supervision Note: I interviewed and examined the patient. Discussed with Dr. Hyatt and agree with findings and plan as documented in the note. Any exceptions or clarifications are listed here: None Documented By: Sukh Garcia pain better sitting up and with brace on. all other ROS otherwise negative except for as above vitals noted nad breathing unlabored no pallor or icterus back pain - radicular from thoracic fx, from rib fx as well. doing better on steroids. taper. increase nucynta ER, continue bowel regimen. consider lyrica or neurontin if pain persists intolerable w increase in nucynta. stable for return to SNF (Sukh Garcia D.O.) Discharge Instructions Please refer to the electronic Patient Visit Report (Discharge Instructions) for additional information. (Jimmy Hyatt MD) Additional Copies To [place], [place]
[2017-04-07] MEDS ORDERED: OXYC-57 PO (15:43)
[2017-04-07] MEDS ORDERED: NF656 PO (15:43)
[2017-04-07] MEDS ORDERED: MCRK20 PO (15:43)
[2017-04-19] MEDS ORDERED: ASPEC81 PO (15:04)
[2017-04-19] MEDS ORDERED: KFL500 PO (15:04)
[2017-04-19] MEDS ORDERED: DFL100 PO (15:04)
--- NOTE | 2017-04-20 07:55 | EDITING REQUIRED CODING QUERY ---
CODING QUERY To promote full compliance with coding requirements relating to patient care, provider participation is requested in all cases of hand counter uncertainty. Please assist us with the question(s) below: Coding Question(s): Can you please clarify the diagnosis of the multiple rib fractures below. Some documentation states the fracture were on the right side, some states left and also conflict with the radiology report. Please clarify below Also on the discharge summary it states Abdominal pain likely referred from spinal compression fractures but the xrays state no acute fractures. Please clarify the diagnosis of spinal compression fractures also. Physician's Response(s): Rib Fracture (x ) Right (x ) Left Present on Admission: ( x) Yes ( ) No (old fractures when admitted and new rib fractures while in the hospital) Undetermined. Spinal Compression Fracture: ( ) Present on Admission (x ) History of Fracture ( ) Spinal Compression Fracture Ruled out ( ) Other (please specify) Thank you Arabella Salazar Principal Diagnosis: "_that condition established after study, to be chiefly responsible for occasioning the admission of the patient to the hospital for care." Co-Existing Principal Diagnosis: "_when two or more diagnoses equally meet the criteria for principal diagnosis as determined by the circumstances of admission, diagnostic work up, and/or therapy provided, and the Alphabetic Index, Tabular List, or another coding guideline does not provide sequencing direction, any one of the diagnoses may be sequenced first." "When the physician has documented what appears to be a current diagnosis in the body of the record, but has not included the diagnosis in the final diagnostic statement, the physician should be asked whether the diagnosis should be added." (Source Coding [facility] 2 QTR90. p3-4)
== END 2017-03-23 13:37 | DRG 552 ==
LOC: EDBD 00:10 → C.EDA 00:11 → C.2E 04:32 → ENRESERV 04:45 → OBSVTOIN 03-17 19:17 → ENRESERV 03-18 13:46 → C.MS4W 03-18 14:55
PROVIDERS: ADMIT Hospitalist; ATTEND Family Medicine
DX: M54.9 Dorsalgia, unspecified (principal); S22.41XA Multiple fractures of ribs, right side, initial encounter for closed fracture; N18.5 Chronic kidney disease, stage 5; I12.0 Hypertensive chronic kidney disease with stage 5 chronic kidney disease or end stage renal disease; S22.42XA Multiple fractures of ribs, left side, initial encounter for closed fracture; R10.9 Unspecified abdominal pain; D50.9 Iron deficiency anemia, unspecified; E11.9 Type 2 diabetes mellitus without complications; I48.91 Unspecified atrial fibrillation; I25.10 Atherosclerotic heart disease of native coronary artery without angina pectoris; F41.9 Anxiety disorder, unspecified; F32.9 Major depressive disorder, single episode, unspecified; L29.9 Pruritus, unspecified; M19.90 Unspecified osteoarthritis, unspecified site; M81.0 Age-related osteoporosis without current pathological fracture; Z82.49 Family history of ischemic heart disease and other diseases of the circulatory system; S00.03XA Contusion of scalp, initial encounter; W18.12XA Fall from or off toilet with subsequent striking against object, initial encounter; K80.20 Calculus of gallbladder without cholecystitis without obstruction; Z86.73 Personal history of transient ischemic attack (TIA), and cerebral infarction without residual deficits; Z79.4 Long term (current) use of insulin; Z79.52 Long term (current) use of systemic steroids; K21.9 Gastro-esophageal reflux disease without esophagitis; R19.7 Diarrhea, unspecified; Z87.81 Personal history of (healed) traumatic fracture

== ENCOUNTER 2017-03-29 00:19 | Emergency (ER) | payer OTHER ==
[~2017-03-29] VITALS: Ht 157.5 cm; Wt 85.2 kg
[~2017-03-29 00:19] MED LIST changes: -ACET-1256 PO; +ACET-1311 PO; -CHOL1000 PO; -ESCI10TA17 PO; +ESCI1TAB10 PO; +FRRS300 PO; +GLYCDRO6 OPB; +ISOS-11 PO; -ISOS60TA25 PO; +MYL80 PO; +NCY50 PO; +NCYSR50 PO; -NORT25CA PO; +POLY335019 PO; +POTA20TA13 PO; -POTA20TA16 PO; +PRD10 PO; +SENN1TAB65 PO; -TRAM-10 PO; -lidocaine patch TD
[2017-03-29 00:28] VITALS: TEMP 37.2; Ht 157.5 cm; Wt 85.2 kg
[2017-03-29] MEDS ORDERED: ONDANSETRON INJ 2 MG/ML 2 ML VIAL IV STA (00:39)
[2017-03-29] MEDS ORDERED: MoRPHine SULFATE 4 MG/ML 1 ML CARP\\VIAL IV PRN (00:45)
[2017-03-29 00:51] LABS: BASO % 0.1 %; BASO ABS # 0.01 K/uL (0-0.2); HEMATOCRIT 34.3 % (37-47); IG% 0.3 %; LYMPH % 25.1 %; LYMPH ABS # 2.27 K/uL (1.2-3.4); MEAN CELL VOLUME 84.3 fL (80-100); MEAN CORPUSCULAR HEMOGLOBIN 25.8 pg (25-34); MEAN CORPUSCULAR HGB CONC 30.6 g/dl (32-36); MEAN PLATELET VOLUME 8.8 fL (7.4-10.4); MONO % 8.5 %; PLATELET COUNT 366 K/uL (130-400); RED BLOOD COUNT 4.07 M/uL (4.2-5.4); WHITE BLOOD COUNT 9.03 K/uL (4.8-10.8)
[2017-03-29 01:10] LABS: ALT/SGPT 17 U/L (12-78); AST/SGOT 8 U/L (15-37); BLOOD UREA NITROGEN 22 mg/dl (7-18); BUN/CREATININE RATIO 13.7 (10-20); CALCIUM 9.1 mg/dl (8.5-10.1); CARBON DIOXIDE 33 mmol/L (21-32); CHLORIDE 100 mmol/L (98-107); GLUCOSE 148 mg/dl (70-99); POTASSIUM 3.4 mmol/L (3.5-5.1); SODIUM 138 mmol/L (136-145)
[2017-03-29 01:11] LABS: PARTIAL THROMBOPLASTIN RATIO 0.8; PROTHROMBIN TIME (PATIENT) 10.6 SECONDS (9.0-12.0)
[2017-03-29 01:13] LABS: ANISOCYTOSIS PRESENT; COMPLETE YES; HYPERSEGMENTED POLYS 1+; POLYCHROMASIA 1+
[2017-03-29 01:16] LABS: ALKALINE PHOSPHATASE 72 U/L (45-117); CKMB/CK RATIO 4.4 (0-3.0)
[2017-03-29] MEDS ORDERED: SODIUM CHLORIDE 0.9% 500ML 500 ML IV STA (01:20)
[2017-03-29] MEDS ORDERED: TAPE1TAB9 PO (01:44)
[2017-03-29] MEDS ORDERED: PRED-301 PO (01:47)
[2017-03-29] MEDS ORDERED: PRED10TA PO (01:49)
--- NOTE | 2017-03-29 01:52 | EMERGENCY ROOM VISIT NOTE ---
History Report prepared by Ara: Maribel Eller Under the Supervision of: Dr. Vu Marinelli D.O. 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 She comes from [facility] by EMS. The patient broke her ribs last week. She is on pain medications, but she says that they are not strong enough. The pain is present between her chest and abdomen on the left side. She has pain in her back also. The pain is the same pain she had at her prior visit. At that time, they ruled out any cardiac events. She reports nausea. She denies any vomiting. She has a history of gallstones. 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 A total of 10 systems reviewed and were otherwise negative. 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 (9) CEREBRAL THROMBOSIS W CEREBRAL INFARCTION (10) CEREBROVASC DISEASE NOS (11) Chest pain (12) Chest pain radiating to arm (13) CHRONIC KIDNEY DISEASE, STAGE V (14) Chronic pain (15) CVA (cerebral infarction) (16) CYSTIC KIDNEY DISEASE, UNSPECIFIED (17) Depression (18) Depression (19) Diabetes (20) Discharge planning issues (21) Elevated troponin (22) ESOPHAGEAL REFLUX (23) Fracture of thoracic spine (24) Heart disease (25) HTN (hypertension) (26) Hyperlipidemia (27) HYPERPARATHYROIDISM, UNSPECIFIED (28) Hypoglycemia (29) Intentional self-harm (30) Leg weakness, bilateral (31) Leukocytosis (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 (33) Osteoarthritis (34) PANCREATIC DISEASE NEC (35) Past Psychotropic Medications (36) PERIPH VASCULAR DIS NOS (37) Precordial chest pain (38) R sided numbness (39) Rheumatoid arthritis (40) Right sided weakness (41) Suicide attempt by acetaminophen overdose (42) Thoracic spine fracture (43) TIA (transient ischemic attack) (44) UTI (urinary tract infection) (45) VASCULAR DEMENTIA, UNCOMPLICATED (46) VERTIGO (47) VITAMIN D DEFICIENCY NOS (48) Wrist fracture Surgical Problems: (1) Hx of coronary artery bypass surgery Family History Heart disease Myocardial infarction Social History Smoking Status: Unknown if Ever Smoked Alcohol Use: none Drug Use: none Marital Status: single Housing Status: lives alone Occupation Status: retired Current/Historical Medications Scheduled Alendronate Sodium (Fosamax), 70 MG PO WK Calcium Carbonate-Vitamin D (Oscal 500/200 D-3), 1 TAB PO AMPM Diphenhydramine Hcl (Benadryl Allergy), 25 MG PO HS Dipyridamole/Aspirin (Aggrenox 25-200 mg), 1 CAP PO BID Docusate Sodium (Colace), 100 MG PO BID Escitalopram Oxalate (Lexapro), 20 MG PO DAILY Ferrous Sulfate (Ferrous Sulfate), 325 MG PO BIDM Furosemide (Lasix), 80 MG PO BID Qporgijn-Ladfjpcvgrog-Ibzmosgn (Artificial Tears), 2 DROPS OPB QS Insulin Glargine (Lantus Solostar), 15 UNITS SC HS Isosorbide Mononitrate (Isosorbide Mononitrate ER), 90 MG PO QAM Nitroglycerin (Nitrostat), 0.4 MG UT PRN Pantoprazole (Protonix), 40 MG PO QPM Polyethylene Glycol 3350 (Miralax), 17 GM PO DAILY Potassium Chloride Microencaps (Potassium Chloride Er), 2 TAB PO DAILY Prednisone (Prednisone), 5 MG PO QAM Ranolazine (Ranexa), 1,000 MG PO BID Simvastatin (Zocor), 40 MG PO HS Tapentadol Hcl (Nucynta Er), 50 MG PO Q12 Topiramate (Topamax), 200 MG PO BID Scheduled PRN Acetaminophen (Tylenol), 650 MG PO Q6 PRN for Pain Acetaminophen (Tylenol), 650 MG PO Q6 PRN for TEMP>100 Albuterol Hfa (Ventolin Hfa), 1-2 PUFFS INH Q4 PRN for Shortness of Breath Simethicone (Mi-Acid Gas Relief), 80 MG PO Q6H PRN for Bloating Tapentadol HCl (Nucynta), 100 MG PO Q4H PRN for Pain Allergies Coded Allergies: Iodinated Diagnostic Agents (Verified Allergy, Severe, ANAPHYLAXIS, 01/13/17 ) [place] (Verified Allergy, Severe, RASH, HIVES, TROUBLE BREATHING, 01/13/17) Promethazine (Verified Allergy, Severe, HIVES, TROUBLE BREATHING, 01/13/17) Bupropion (Verified Allergy, Intermediate, RASH, 01/13/17) Diazepam (Verified Allergy, Intermediate, Rash, 01/13/17) Reported by PT. Erythromycin (Verified Allergy, Intermediate, RASH, 01/13/17) Iodine (Verified Allergy, Intermediate, RASH, HIVES, 01/13/17) Penicillins (Verified Allergy, Intermediate, RASH, 01/13/17) Phenytoin (Verified Allergy, Unknown, PT UNSURE, 01/13/17) Tamsulosin (Verified Adverse Reaction, Intermediate, DIZZINESS, 01/13/17) Physical Exam Vital Signs Date Time Temp Pulse Resp B/P (MAP) Pulse Ox O2 Delivery O2 Flow Rate FiO2 03/29/17 03:36 74 16 133/75 98 03/29/17 02:14 74 18 109/67 97 Room Air 03/29/17 00:34 83 03/29/17 00:28 37.2 77 18 152/77 96 Room Air Physical Exam GENERAL: Patient is awake, alert, and in no acute distress. Patient is resting comfortably and showing no signs of anxiety EYES: The conjunctivae are clear. The pupils are round and reactive. EARS, NOSE, MOUTH AND THROAT: The nose is without any evidence of any deformity. Mucous membranes are moist tongue is midline NECK: The neck is nontender and supple. RESPIRATORY: Normal respiratory effort is noted there is no evidence of wheezing rhonchi or rales CARDIOVASCULAR: Regular rate and rhythm noted there no murmurs rubs or gallops normal S1 normal S2 GASTROINTESTINAL: The abdomen is moderately distended and diffusely tender, no guarding or rigidity. MUSCULOSKELETAL/EXTREMITIES: There is no evidence of gross deformity full range of motion is noted in the hips and shoulders SKIN: There is no obvious evidence of any rash. There are no petechiae, pallor or cyanosis noted. Pedal edema bilaterally. NEUROLOGIC: Patient is awake alert and oriented x3 Medical Decision & Procedures ER Provider Diagnostic Interpretation: X-ray results as stated below per interpretation by me. Chest X-ray: Cardiomegaly noted, no free air, no definite infiltrate, bilateral pleural effusion right greater than left, no change from -Mar-2017. CT the abdomen and pelvis was obtained in the emergency Department The report was reviewed. Preliminary Findings Only See Final Report For Complete Findings CT ABDOMEN & PELVIS: Comparison 03/17/2017. No acute abdominopelvic abnormality. Stable nonobstructing calculi in both kidneys. Stable simple and complex renal cysts bilaterally. Cholelithiasis, unchanged. Stable hepatomegaly. No bowel obstruction. Stable small hiatal hernia. No free intraperitoneal air or fluid. Interval development of a lateral pleural effusions, right greater than left. There is adjacent compressive atelectasis. Limited evaluation of the osseous structures due to lack of reformatted coronal and sagittal images. Radiologist: Harish Sánchez MD Study ready at 01:18 and initial results transmitted at 01:48 Laboratory Results 03/29/17 00:35 Red Blood Count 4.07, Mean Corpuscular Volume 84.3, Mean Corpuscular Hemoglobin 25.8, Mean Corpuscular Hemoglobin Concent 30.6, Mean Platelet Volume 8.8, Neutrophils (%) (Auto) 63.0, Lymphocytes (%) (Auto) 25.1, Monocytes (%) (Auto) 8.5, Eosinophils (%) (Auto) 3.0, Basophils (%) (Auto) 0.1, Neutrophils # (Auto) 5.68, Lymphocytes # (Auto) 2.27, Monocytes # (Auto) 0.77, Eosinophils # (Auto) 0.27, Basophils # (Auto) 0.01 03/29/17 00:35 Test 03/29/17 00:35 03/29/17 02:09 White Blood Count 9.03 K/uL (4.8-10.8) Red Blood Count 4.07 M/uL (4.2-5.4) Hemoglobin 10.5 g/dL (12.0-16.0) Hematocrit 34.3 % (37-47) Mean Corpuscular Volume 84.3 fL (80-100) Mean Corpuscular Hemoglobin 25.8 pg (25-34) Mean Corpuscular Hemoglobin Concent 30.6 g/dl (32-36) Platelet Count 366 K/uL (130-400) Mean Platelet Volume 8.8 fL (7.4-10.4) Neutrophils (%) (Auto) 63.0 % Lymphocytes (%) (Auto) 25.1 % Monocytes (%) (Auto) 8.5 % Eosinophils (%) (Auto) 3.0 % Basophils (%) (Auto) 0.1 % Neutrophils # (Auto) 5.68 K/uL (1.4-6.5) Lymphocytes # (Auto) 2.27 K/uL (1.2-3.4) Monocytes # (Auto) 0.77 K/uL (0.11-0.59) Eosinophils # (Auto) 0.27 K/uL (0-0.5) Basophils # (Auto) 0.01 K/uL (0-0.2) RDW Standard Deviation 66.8 fL (36.4-46.3) RDW Coefficient of Variation 22.3 % (11.5-14.5) Immature Granulocyte % (Auto) 0.3 % Immature Granulocyte # (Auto) 0.03 K/uL (0.00-0.02) Hypersegmented Polys 1+ Polychromasia 1+ Anisocytosis PRESENT Prothrombin Time 10.6 SECONDS (9.0-12.0) Prothromb Time International Ratio 1.0 (0.9-1.1) Activated Partial Thromboplast Time 20.9 SECONDS (21.0-31.0) Partial Thromboplastin Ratio 0.8 Anion Gap 5.0 mmol/L (3-11) Est Creatinine Clear Calc Drug Dose 27.9 ml/min Estimated GFR () 34.7 Estimated GFR (Non- 29.9 BUN/Creatinine Ratio 13.7 (10-20) Calcium Level 9.1 mg/dl (8.5-10.1) Total Bilirubin 0.3 mg/dl (0.2-1) Direct Bilirubin < 0.1 mg/dl (0-0.2) Aspartate Amino Transf (AST/SGOT) 8 U/L (15-37) Alanine Aminotransferase (ALT/SGPT) 17 U/L (12-78) Alkaline Phosphatase 72 U/L (45-117) Total Creatine Kinase 16 U/L (26-192) Creatine Kinase MB 0.7 ng/ml (0.5-3.6) Creatine Kinase MB Ratio 4.4 (0-3.0) Troponin I < 0.015 ng/ml (0-0.045) Total Protein 7.1 gm/dl (6.4-8.2) Albumin 3.1 gm/dl (3.4-5.0) Lipase 113 U/L (73-393) Urine Color YELLOW Urine Appearance CLEAR (CLEAR) Urine pH 8.0 (4.5-7.5) Urine Specific [place] 1.012 (1.000-1.030) Urine Protein NEG (NEG) Urine Glucose (UA) NEG (NEG) Urine Ketones NEG (NEG) Urine Occult Blood NEG (NEG) Urine Nitrite NEG (NEG) Urine Bilirubin NEG (NEG) Urine Urobilinogen NEG (NEG) Urine Leukocyte Esterase NEG (NEG) Laboratory results per my review. Medications Administered Medications (Trade) Dose Ordered Sig/Phil Route Start Time Stop Time Status Last Admin Dose Admin Morphine Sulfate (MoRPHine SULFATE INJ) 4 mg Q15M PRN IV 03/29/17 00:45 03/29/17 04:21 DC 03/29/17 00:47 4 MG Ondansetron HCl (Zofran Inj) 4 mg NOW STAT IV 03/29/17 00:39 03/29/17 00:41 DC 03/29/17 00:47 4 MG Sodium Chloride 500 ml @ 999 mls/hr Q31M STAT IV 03/29/17 01:20 03/29/17 01:50 DC 03/29/17 01:20 999 MLS/HR ECG Indication: chest pain Rate (beats per minute): 76 Rhythm: sinus rhythm Findings: nonspecific-ST abn (Lateral), PAC, other (no PVC) Comparison ECG Date: 22-Mar-2017 Change: no significant change ED Course 0032: The patient was evaluated in room B9. A complete history and physical examination were performed. 0039: Zofran Inj 4 mg IV. 0045: Morphine Sulfate 4 mg IV. 0120: NSS 500 ml @ 999 mls/hr IV. 0308: Upon reevaluation, the patient is resting comfortably. I discussed the results and treatment plan with her. She verbalized agreement of the treatment plan. She was discharged home. Medical Decision Prior records/ancillary studies reviewed. Triage Nursing notes reviewed. The patient's history was concerning for abdominal pain. Differential diagnosis: Etiologies such as appendicitis, diverticulitis, PUD, biliary pathology, UTI, pancreatitis, obstruction, mesenteric ischemia, aortic pathology, infections, inflammatory bowel disease, renal colic, as well as others were entertained. Medication Reconciliation: I attest that I have personally reviewed the patient' s current medications list. Blood pressure screening: Patient was found to have normal blood pressure on screening and does not require follow-up. The patient is an 82-year-old female who presented to the emergency department for an evaluation of chest pain and upper abdominal pain. The patient has been seen in our facility recently with similar complaints. When she was seen here on her last visit she was diagnosed with rib fractures. At this time she does appear to have chest pain and upper abdominal pain. I discussed the patient's laboratory radiographic studies with her. She was treated with IV pain medication and IV antiemetics and on subsequent reevaluation was feeling much better. She was found have signs or pleural effusion which does appear to be new compared to recent radiographic studies. This is likely related to the patient's rib fractures. Her oxygen saturation is acceptable and her pain is under control. I discussed her case with the burn she department case technician and we were able to try to set her up with a follow-up appointment with the cardiothoracic surgeon. This may require drainage in the future but she was advised to continue all medications as prescribed and rest. She was also encouraged to return to the emergency department immediately if symptoms change worsen or the need arises. Impression Primary Impression: Abdominal pain Additional Impressions: Chest pain Mild dehydration Pleural effusion Scribe Attestation The scribe's documentation has been prepared under my direction and personally reviewed by me in its entirety. I confirm that the note above accurately reflects all work, treatment, procedures, and medical decision making performed by me. Departure Information Dispostion Home / Self-Care Referrals [facility] (PCP) Mckinley Contreras M.D. Whitlark, Joseph D., MD Forms HOME CARE DOCUMENTATION FORM, IMPORTANT VISIT INFORMATION Patient Instructions ED Chest Pain Atypical Unkn Cause, ED Effusion Pleural, My [facility] Additional Instructions Rest and avoid any strenuous x-ray. Continue all medications as prescribed. Follow-up with the cardiothoracic surgeon this week we will try to schedule the appointment. Problem Qualifiers Primary Impression: Abdominal pain Abdominal location: generalized Qualified Codes: R10.84 - Generalized abdominal pain Additional Impressions: Chest pain Chest pain type: unspecified Qualified Codes: R07.9 - Chest pain, unspecified
[2017-03-29 02:23] LABS: URINE APPEARANCE CLEAR (CLEAR); URINE BILIRUBIN NEG (NEG); URINE COLOR YELLOW; URINE NITRITE NEG (NEG); URINE SPECIFIC GRAVITY 1.012 (1.000-1.030); UROBILINOGEN NEG (NEG)
[2017-03-29 02:39] LABS: MANUAL MICROSCOPIC REQUIRED? NO; REVIEW REQ? NO
[2017-03-29 03:36] VITALS: BP 133/75; PULSE 74; O2SAT 98
--- NOTE | 2017-03-29 06:04 | DIAGNOSTIC IMAGING REPORT ---
CHEST ONE VIEW PORTABLE CLINICAL HISTORY: ABDOMINAL PAIN/GI pain COMPARISON STUDY: 03/19/2017 FINDINGS: Mild stable cardiomegaly. Improved aeration of the lung bases. Minimal residual atelectatic change. Mid and upper lungs are considered clear. IMPRESSION: 1. Mild stable cardiomegaly. 2. Improving basilar atelectasis compared to the prior study. The above report was generated using voice recognition software. It may contain grammatical, syntax or spelling errors. Electronically signed by: Ashwin Hanyd M.D. 03/29/2017 6:03 AM Dictated Date/Time: 03/29/2017 6:02 AM
--- NOTE | 2017-03-29 06:16 | DIAGNOSTIC IMAGING REPORT ---
ABD/PELVIS NO IV OR ORAL CONT CT DOSE: 706.13 mGy.cm HISTORY: Pain abd pain TECHNIQUE: Multiaxial CT images of the abdomen and pelvis were performed without contrast. COMPARISON STUDY: 03/17/2017 FINDINGS: Interval development of right and to lesser extent left basilar pleural effusions. Mild superimposed bibasilar atelectatic change. Gallstones are again noted. Bilateral nonobstructing renal calcifications unchanged. Several stable left renal cysts. Nonobstructive bowel pattern. Bladder is slightly distended. No free fluid within the pelvic cul-de-sac. Prior hysterectomy. Degenerative osseous changes as have been described previously. IMPRESSION: 1. No acute process of the abdomen or pelvis. 2. Multiple miscellaneous findings stable from the prior exam. 3. Interval development of bilateral pleural effusions and bibasilar atelectatic change. The above report was generated using voice recognition software. It may contain grammatical, syntax or spelling errors. Electronically signed by: Ashwin Handy M.D. 03/29/2017 6:15 AM Dictated Date/Time: 03/29/2017 6:12 AM
[2017-04-07] MEDS ORDERED: OXYC-57 PO (15:43)
[2017-04-07] MEDS ORDERED: NF656 PO (15:43)
[2017-04-07] MEDS ORDERED: MCRK20 PO (15:43)
[2017-04-19] MEDS ORDERED: ASPEC81 PO (15:04)
[2017-04-19] MEDS ORDERED: KFL500 PO (15:04)
[2017-04-19] MEDS ORDERED: DFL100 PO (15:04)
== END 2017-03-29 03:37 | disposition home or self-care (01) ==
LOC: EDBD 00:19 → C.EDB 00:22
DX: R07.9 Chest pain, unspecified (principal); R10.84 Generalized abdominal pain; S22.49XD Multiple fractures of ribs, unspecified side, subsequent encounter for fracture with routine healing; E86.0 Dehydration; J90 Pleural effusion, not elsewhere classified; J45.909 Unspecified asthma, uncomplicated; I48.91 Unspecified atrial fibrillation; H54.41 Blindness, right eye, normal vision left eye; Z86.73 Personal history of transient ischemic attack (TIA), and cerebral infarction without residual deficits; N18.5 Chronic kidney disease, stage 5; F32.9 Major depressive disorder, single episode, unspecified; E11.9 Type 2 diabetes mellitus without complications; K21.9 Gastro-esophageal reflux disease without esophagitis; E78.5 Hyperlipidemia, unspecified; E21.3 Hyperparathyroidism, unspecified; M19.90 Unspecified osteoarthritis, unspecified site; K86.9 Disease of pancreas, unspecified; I73.9 Peripheral vascular disease, unspecified; M06.9 Rheumatoid arthritis, unspecified; I12.0 Hypertensive chronic kidney disease with stage 5 chronic kidney disease or end stage renal disease; Z87.440 Personal history of urinary (tract) infections; F01.50 Vascular dementia, unspecified severity, without behavioral disturbance, psychotic disturbance, mood disturbance, and anxiety; Z95.1 Presence of aortocoronary bypass graft; Z82.49 Family history of ischemic heart disease and other diseases of the circulatory system; Z79.4 Long term (current) use of insulin; Z79.899 Other long term (current) drug therapy

== ENCOUNTER 2017-04-04 15:47 | Inpatient (IN) | payer OTHER ==
[~2017-04-04] VITALS: Ht 157.5 cm; Wt 80.3 kg
[~2017-04-04 15:47] MED LIST changes: -MECL1TAB42 PO; -NCYSR50 PO; -PRD10 PO; -SENN1TAB65 PO; +TAPE1TAB9 PO
[2017-04-04] MEDS ORDERED: FENTANYL CITRATE INJ 50 MCG/1 ML 2 ML VIAL IV STA ×2 (16:00→20:01)
[2017-04-04] MEDS ORDERED: MOML PO (16:36)
[2017-04-04] MEDS ORDERED: SODIENE PR (16:36)
[2017-04-04] MEDS ORDERED: METO2.5T PO (16:36)
[2017-04-04] MEDS ORDERED: RXNS20 PO (16:36)
[2017-04-04] MEDS ORDERED: BISA10SU7 PR (16:36)
[2017-04-04] MEDS ORDERED: NF656 PO (16:36)
--- NOTE | 2017-04-04 17:00 | DIAGNOSTIC IMAGING REPORT ---
CT OF THE HEAD WITHOUT CONTRAST CLINICAL HISTORY: Fall, head injury COMPARISON STUDY: Head CT March 17, 2017. TECHNIQUE: Helical axial images of the head were obtained without IV contrast. Automated exposure control was utilized for the study. A dose lowering technique was utilized adhering to the principles of ALARA. FINDINGS: No acute intracranial hemorrhage, midline shift or mass effect is present. Ventricular system is stable. Basilar cisterns are patent. There are no extra-axial collections. White matter hypodensity suggests small vessel disease. No calvarial fracture is identified although sensitivity for detection of nondisplaced calvarial fractures is diminished due to motion artifact. IMPRESSION: 1. No acute intracranial findings. 2. No calvarial fracture. Electronically signed by: Cuate Denise M.D. 04/04/2017 4:59 PM Dictated Date/Time: 04/04/2017 4:55 PM
--- NOTE | 2017-04-04 17:07 | DIAGNOSTIC IMAGING REPORT ---
CT OF THE CERVICAL SPINE WITHOUT CONTRAST CLINICAL HISTORY: Back pain following fall. COMPARISON STUDY: Cervical spine CT March 17, 2017. TECHNIQUE: Helical axial images of the cervical spine were obtained without IV contrast. Sagittal and coronal reconstructions were viewed. A dose lowering technique was utilized adhering to the principles of ALARA. FINDINGS: No acute cervical spine fracture is present. There is an old C7 compression fracture with mild retropulsion which is unchanged since earlier exam. There is moderate multilevel facet arthrosis and mild multilevel degenerative disc disease of the cervical spine. There is no prevertebral edema. A right pleural effusion is better depicted on the chest CT. IMPRESSION: 1. No acute cervical spine fracture or subluxation. 2. Chronic moderate C7 compression fracture with mild retropulsion which is unchanged in appearance. Electronically signed by: Cuate Denise M.D. 04/04/2017 5:06 PM Dictated Date/Time: 04/04/2017 5:00 PM
--- NOTE | 2017-04-04 17:29 | DIAGNOSTIC IMAGING REPORT ---
ADDENDUM Addendum: In addition, there is an acute to subacute fracture of the posterior lateral right fourth rib. This is new since prior chest CT. Electronically signed by: Cuate Denise M.D. 04/04/2017 5:38 PM Dictated Date/Time: 04/04/2017 5:[address] OF THE CHEST WITHOUT IV CONTRAST CLINICAL HISTORY: Fall. Rib and back pain. COMPARISON STUDY: Chest CT March 15, 2017 and bilateral rib series March 19, 2017. TECHNIQUE: Axial images of the chest were obtained without IV contrast. Images were reviewed in the axial, sagittal, and coronal planes. IV contrast was not administered for this examination. A dose lowering technique was utilized adhering to the principles of ALARA. FINDINGS: No enlarged axillary, mediastinal or hilar lymph nodes are present. There is no mediastinal hematoma. The heart is mildly enlarged. A moderate right pleural effusion is noted. This has slightly increased in size since abdominal CT of March 29, 2017. A left pleural effusion has improved. There is no pneumothorax. There are multiple old bilateral rib fractures. In addition, there are multiple acute to subacute mildly displaced left-sided rib fractures. These were shown on rib series of March 19, 2017. There are old sternal fractures. Mild esophageal dilatation is noted. Right lower lobe opacity reflects atelectasis. There are multiple old compression fractures, including fractures of C7, T12 and L1. There is a horizontal fracture through the T6-T7 disc space. This is new since chest CT of March 15, 2017. There is extensive anterior osteophytosis. This fracture likely extends through the superior endplate of T7. No additional acute thoracic spine fractures are identified. This was portions the upper abdomen demonstrate several suspected cysts as well as a stable 1.8 cm cystic lesion arising from the pancreas head. This is unchanged as earlier CTs. This may reflect a side branch IPMN. IMPRESSION: 1. Several mildly displaced acute to subacute left-sided rib fractures which are new since chest CT of March 15, 2017. No pneumothorax. 2. Slight increase in size of a moderate right pleural effusion. 3. Horizontal fracture through the T6-T7 disc space which is new since CT of March 15, 2017 and is acute to subacute. No definite extension into the posterior elements although given extensive anterior osteophytosis, this fracture may be unstable. 4. Acute to subacute minimally displaced fracture of the left transverse process of L1. Electronically signed by: Cuate Denise M.D. 04/04/2017 5:28 PM Dictated Date/Time: 04/04/2017 5:06 PM
--- NOTE | 2017-04-04 17:38 | DIAGNOSTIC IMAGING REPORT ---
THORACIC SPINE WITHOUT CLINICAL HISTORY: Back pain following fall. COMPARISON STUDY: Thoracic spine CT December 30, [address] March 15, 2017. FINDINGS: Note is made of old compression fractures of C7, T8, T9, T10, T12 and L1. There is a horizontal acute to subacute fracture through the disc space and anterior osteophytes at the T6-T7 level. No clear extension into the posterior elements is noted. Central canal and neural foramen are suboptimally assessed by CT. There is an acute to subacute right fourth rib fracture and several acute to subacute left-sided rib fractures. There is an acute to subacute fracture of the left transverse process of L1. Moderate right pleural effusion is incidentally noted. IMPRESSION: 1. Acute to subacute horizontal fracture through the T6-T7 disc space and anterior osteophytes that extends through the inferior endplate of T6 and superior endplate of T7. No clear extension into the posterior elements although this fracture may be unstable. 2. Numerous old thoracic spine fractures. 3. Acute to subacute bilateral rib fractures, as described above. No pneumothorax. Moderate right pleural effusion. 4. Acute to subacute mildly displaced fracture of the left transverse process of L1. Electronically signed by: Cuate Denise M.D. 04/04/2017 5:37 PM Dictated Date/Time: 04/04/2017 5:28 PM
--- NOTE | 2017-04-04 17:46 | DIAGNOSTIC IMAGING REPORT ---
LUMBAR SPINE WITHOUT CLINICAL HISTORY: Back pain following fall. COMPARISON STUDY: Lumbar spine CT December 30, 2016 and lumbar spine radiographs March 18, 2017. FINDINGS: There is a minimally displaced fracture of the left transverse process of L1 and a nondisplaced fracture of the right transverse process of L1. There is a nondisplaced fracture of the left transverse process of L2. These fractures are acute to subacute. There are old T12 and L1 compression fractures. These are unchanged. Moderate loss of height of T12 is unchanged. No additional acute lumbar spine fractures are identified on this exam. Moderate multilevel degenerative changes are present. Anterolisthesis of L4 and L5 is unchanged. Central canal is suboptimally assessed by CT. IMPRESSION: 1. Bilateral transverse process fractures of L1 and left transverse process fracture of L2. These fractures are acute to subacute. 2. Old T12 and L1 compression fractures. Electronically signed by: Cuate Denise M.D. 04/04/2017 5:45 PM Dictated Date/Time: 04/04/2017 5:39 PM
--- NOTE | 2017-04-04 18:03 | EMERGENCY ROOM VISIT NOTE ---
ED Visit Note First contact with patient: 15:52 I have seen and examined this patient with Marielos Willis and generally agree with the treatment plan as discussed. I have evaluated the patient at bedside myself , patient still with complaints of pain, but aware of all results and plan loss far. Patient with history of recurrent falls and multiple prior fractures.
[2017-04-04] MEDS ORDERED: FENTANYL CITRATE INJ 50 MCG/1 ML 2 ML VIAL IV ONE (18:15)
--- NOTE | 2017-04-04 18:53 | EMERGENCY ROOM VISIT NOTE ---
History First contact with patient: 15:52 Chief Complaint: FALL Stated Complaint: FALL/BACK PAIN History of Present Illness The patient is a 82 year old female who presents to the Emergency Room for evaluation of back pain following a fall. The patient states that she was transferring from a lift chair to her wheelchair when she missed the wheelchair and fell, landing onto her back and striking her head. She denies any lightheadedness or dizziness associated with the fall. She complains of pain in her mid and lower back as well as the back of her head. She also complains of pain in the left ribs radiating across to the right ribs. She rates her discomfort an 8/10. She denies any other injuries. She denies numbness or weakness of her extremities. She denies abdominal pain, chest pain or shortness of breath. The patient does have a history of osteoporosis and has had multiple fractures in the back. She follows with [facility]. Review of Systems A complete 10 point review of systems was reviewed with the patient with pertinent positives and negatives as per history of present illness. All else were negative. Past Medical/Surgical History Medical Problems: (1) Acetaminophen toxicity (2) Adrenal insufficiency (3) Asthma (4) Asthmatic bronchitis (5) ATRIAL FIBRILLATION (6) Blind right eye (7) Blindness of right eye (8) Borderline personlity traits (9) CEREBRAL THROMBOSIS W CEREBRAL INFARCTION (10) CEREBROVASC DISEASE NOS (11) Chest pain (12) Chest pain radiating to arm (13) CHRONIC KIDNEY DISEASE, STAGE V (14) Chronic pain (15) CVA (cerebral infarction) (16) CYSTIC KIDNEY DISEASE, UNSPECIFIED (17) Depression (18) Depression (19) Diabetes (20) Discharge planning issues (21) Elevated troponin (22) ESOPHAGEAL REFLUX (23) Fracture of thoracic spine (24) Heart disease (25) HTN (hypertension) (26) Hyperlipidemia (27) HYPERPARATHYROIDISM, UNSPECIFIED (28) Hypoglycemia (29) Intentional self-harm (30) Leg weakness, bilateral (31) Leukocytosis (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 (33) Osteoarthritis (34) PANCREATIC DISEASE NEC (35) Past Psychotropic Medications (36) PERIPH VASCULAR DIS NOS (37) Precordial chest pain (38) R sided numbness (39) Rheumatoid arthritis (40) Right sided weakness (41) Suicide attempt by acetaminophen overdose (42) Thoracic spine fracture (43) TIA (transient ischemic attack) (44) UTI (urinary tract infection) (45) VASCULAR DEMENTIA, UNCOMPLICATED (46) VERTIGO (47) VITAMIN D DEFICIENCY NOS (48) Wrist fracture Surgical Problems: (1) Hx of coronary artery bypass surgery Family History Heart disease Myocardial infarction Social History Smoking Status: Former Smoker Alcohol Use: none Drug Use: none Marital Status: single Housing Status: lives alone Occupation Status: retired Current/Historical Medications Scheduled Alendronate Sodium (Fosamax), 70 MG PO WK Calcium Carbonate-Vitamin D (Oscal 500/200 D-3), 1 TAB PO BIDM Diphenhydramine Hcl (Benadryl Allergy), 25 MG PO HS Dipyridamole/Aspirin (Aggrenox 25-200 mg), 1 CAP PO BID Docusate Sodium (Colace), 100 MG PO BID Escitalopram Oxalate (Lexapro), 20 MG PO DAILY Ferrous Sulfate (Ferrous Sulfate), 325 MG PO BIDM Furosemide (Lasix), 80 MG PO BID Jfxojoyp-Uvvkdrqrcxjd-Vprqvjhz (Artificial Tears), 2 DROPS OPB QS Insulin Glargine (Lantus Solostar), 15 UNITS SC HS Isosorbide Mononitrate (Isosorbide Mononitrate ER), 90 MG PO QAM Lidocaine (Lidoderm Patch 5%), 1 PATCH PO ONAMOFFPM Metolazone (Zaroxolyn), 2.5 MG PO MWF Pantoprazole (Protonix), 40 MG PO QPM Polyethylene Glycol 3350 (Miralax), 17 GM PO DAILY Potassium Chloride Microencaps (Potassium Chloride Er), 2 TAB PO DAILY Prednisone (Prednisone), 5 MG PO QAM Ranolazine (Ranexa), 1,000 MG PO BID Simvastatin (Zocor), 40 MG PO HS Topiramate (Topamax), 200 MG PO BID Scheduled PRN Acetaminophen (Tylenol), 650 MG PO Q6 PRN for Pain Acetaminophen (Tylenol), 650 MG PO Q6 PRN for TEMP>100 Albuterol Hfa (Ventolin Hfa), 1-2 PUFFS INH Q4 PRN for Shortness of Breath Bisacodyl (Bisac-Evac), 1 SUPP AK UD PRN for NO BM X 3 DAYS Magnesium Hydroxide (Milk Of Magnesia), 30 ML PO UD PRN for NO BM X 3 DAYS Morphine Sulfate (Morphine Sulfate), 2.5 MG PO Q4 PRN for Moderate Pain Morphine Sulfate (Morphine Sulfate), 5 MG PO Q4 PRN for Severe Pain Simethicone (Mi-Acid Gas Relief), 80 MG PO Q6H PRN for Bloating Sodium Phosphate/Biphosphate (Fleet Enema), 1 EA AK UD PRN for NO BM X 3 DAYS Physical Exam Vital Signs Date Time Temp Pulse Resp B/P (MAP) Pulse Ox O2 Delivery O2 Flow Rate FiO2 04/04/17 21:00 80 21 142/81 92 04/04/17 20:45 82 98 04/04/17 20:30 81 99 04/04/17 20:15 74 31 99 04/04/17 20:00 82 24 99 04/04/17 19:59 76 24 160/88 99 Room Air 04/04/17 18:20 86 20 116/70 98 Nasal Cannula 2.0 04/04/17 17:19 116/70 97 Nasal Cannula 2.0 04/04/17 16:01 88 04/04/17 15:53 37.1 89 18 133/69 95 Room Air Physical Exam VITALS: Vitals are noted on the nurse's note and reviewed by myself. Vital signs stable. GENERAL: This is an 82-year-old female in no acute distress. SKIN: The skin was without erythema, edema, or bruising. HEAD: There is a small hematoma to the posterior aspect of the scalp. Otherwise normocephalic atraumatic. EARS: External auditory canals clear, tympanic membranes pearly carmona without erythema or effusion bilaterally. No hemotympanum. EYES: Pupils equal round and reactive to light and accommodation. Lateral deviation of the right eye. Extraocular movements intact. MOUTH: Mucous membranes moist. NECK: Supple without nuchal rigidity. Cervical spine is nontender. HEART: Regular rate and rhythm without murmurs gallops or rubs. LUNGS: Clear to auscultation bilaterally without wheezes, rales or rhonchi. CHEST: There is tenderness to palpation over the anterior and lateral left chest wall as well as the lateral right chest wall. ABDOMEN: Soft, nontender to palpation. MUSCULOSKELETAL: Tenderness to palpation of the thoracic and lumbar spine throughout. Full range of motion of all extremities. NEURO: Patient was alert and oriented. Normal sensation to light and sharp touch. Medical Decision & Procedures ER Provider Diagnostic Interpretation: CT OF THE HEAD WITHOUT CONTRAST IMPRESSION: 1. No acute intracranial findings. 2. No calvarial fracture. CT OF THE CERVICAL SPINE WITHOUT CONTRAST IMPRESSION: 1. No acute cervical spine fracture or subluxation. 2. Chronic moderate C7 compression fracture with mild retropulsion which is unchanged in appearance. THORACIC SPINE WITHOUT IMPRESSION: 1. Acute to subacute horizontal fracture through the T6-T7 disc space and anterior osteophytes that extends through the inferior endplate of T6 and superior endplate of T7. No clear extension into the posterior elements although this fracture may be unstable. 2. Numerous old thoracic spine fractures. 3. Acute to subacute bilateral rib fractures, as described above. No pneumothorax. Moderate right pleural effusion. 4. Acute to subacute mildly displaced fracture of the left transverse process of L1. LUMBAR SPINE WITHOUT IMPRESSION: 1. Bilateral transverse process fractures of L1 and left transverse process fracture of L2. These fractures are acute to subacute. 2. Old T12 and L1 compression fractures. CT OF THE CHEST WITHOUT IV CONTRAST IMPRESSION: 1. Several mildly displaced acute to subacute left-sided rib fractures which are new since chest CT of March 15, 2017. No pneumothorax. 2. Slight increase in size of a moderate right pleural effusion. 3. Horizontal fracture through the T6-T7 disc space which is new since CT of March 15, 2017 and is acute to subacute. No definite extension into the posterior elements although given extensive anterior osteophytosis, this fracture may be unstable. 4. Acute to subacute minimally displaced fracture of the left transverse process of L1. Addendum: In addition, there is an acute to subacute fracture of the posterior lateral right fourth rib. This is new since prior chest CT. Medications Administered Medications (Trade) Dose Ordered Sig/Phil Route Start Time Stop Time Status Last Admin Dose Admin Fentanyl Citrate (Fentanyl Inj) 50 mcg NOW STAT IV 04/04/17 16:00 04/04/17 16:03 DC 04/04/17 16:28 50 MCG Fentanyl Citrate (Fentanyl Inj) 50 mcg NOW ONCE IV 04/04/17 18:15 04/04/17 18:16 DC 04/04/17 18:18 50 MCG Fentanyl Citrate (Fentanyl Inj) 50 mcg NOW STAT IV 04/04/17 20:01 04/04/17 20:02 DC 04/04/17 20:04 50 MCG Diphenhydramine HCl (Benadryl Cap) 25 mg HS PO 04/04/17 21:00 05/04/17 20:59 04/04/17 23:11 25 MG Dipyridamole/ Aspirin (Aggrenox 200MG/ 25MG Cap) 1 cap BID PO 04/04/17 21:00 05/04/17 20:59 04/04/17 23:12 1 CAP Docusate Sodium (coLACE CAP) 100 mg BID PO 04/04/17 21:00 05/04/17 20:59 04/04/17 23:11 100 MG Pantoprazole Sodium (Protonix Tab) 40 mg QPM PO 04/04/17 21:00 05/04/17 20:59 04/04/17 23:13 40 MG Simvastatin (Zocor Tab) 40 mg HS PO 04/04/17 21:00 05/04/17 20:59 04/04/17 23:12 40 MG Topiramate (Topamax Tab) 200 mg BID PO 04/04/17 21:00 05/04/17 20:59 04/04/17 23:12 200 MG Ranolazine (Ranexa ER Tab) 1,000 mg BID PO 04/04/17 21:00 05/04/17 20:59 04/04/17 23:11 1,000 MG Miscellaneous (Remove Lidoderm Patch) 1 ea DAILY@21 N/A 04/04/17 21:00 05/04/17 20:59 04/04/17 21:00 1 EA Hydromorphone HCl (Dilaudid Inj) 0.5 mg Q4H PRN IV 04/04/17 20:30 04/18/17 20:29 04/04/17 21:28 0.5 MG ED Course The patient was evaluated as above. Labs were drawn and IV access was obtained. Patient was medicated with [address] scans were performed and read by radiology as above. Patient was reevaluated and findings were discussed. She was given an additional 50 g dental for pain. Case was discussed with Mook Reich PA-C of orthopedic spine. He recommended admitting the patient to medicine and he will consult. Case was discussed with the [facility] hospitalist, Dr. Mccormack. She agreed to evaluate the patient for admission. Medical Decision Differential diagnosis includes fracture, contusion, intracranial bleed, among others. The patient was evaluated as above. Multiple CT scans were performed and showed multiple fractures of the ribs, new lumbar transverse process fractures, as well as a possibly unstable fracture of the thoracic spine. Case was discussed with the RODRIGO from orthopedic spine, who felt that the patient could be admitted here as long as she was neurovascularly intact. Patient's pain was controlled with fentanyl in the emergency department. She was admitted to the [facility] hospitalist group for pain control and management of her fractures. The patient was independently evaluated by Dr. Henderson, ED attending physician , who agreed with my assessment and treatment plan. Medication Reconcilliation Current Medication List: was personally reviewed by me Blood Pressure Screening Patient's blood pressure: Normal blood pressure Impression Primary Impression: Thoracic spine fracture Additional Impressions: Multiple rib fractures Fall Lumbar transverse process fracture Departure Information Referrals [place], [place] (PCP) Patient Instructions My [facility] Health Problem Qualifiers Primary Impression: Thoracic spine fracture
[2017-04-04] MEDS ORDERED: ACETAMINOPHEN 325 MG TAB PO PRN (20:15)
[2017-04-04] MEDS ORDERED: ONDANSETRON INJ 2 MG/ML 2 ML VIAL IV PRN (20:15)
[2017-04-04] MEDS ORDERED: POLYETHYLENE (MIRALAX) 17 GM PACK PO PRN (20:15)
[2017-04-04] MEDS ORDERED: GLUCOSE 40% GEL 15 GM TUBE PO PRN (20:15)
[2017-04-04] MEDS ORDERED: GLUCOSE 10 TABS/TUBE PO PRN (20:15)
[2017-04-04] MEDS ORDERED: DEXTROSE 50% 50 ML SYR IV PRN (20:15)
[2017-04-04] MEDS ORDERED: GLUCAGON FOR INJ 1 MG VIAL SQ PRN (20:15)
[2017-04-04] MEDS ORDERED: MAGNESIUM HYDROXIDE SUSP 30 ML UDC PO PRN (20:30)
[2017-04-04] MEDS ORDERED: BISACODYL 10 MG SUPP PR PRN (20:30)
[2017-04-04] MEDS ORDERED: ALBUTEROL HFA 8 GM INHALER INH PRN (20:30)
[2017-04-04] MEDS ORDERED: SIMETHICONE 80 MG CHEW PO PRN (20:30)
[2017-04-04] MEDS ORDERED: MoRPHine SULFATE 2.5 MG/0.125 ML UDP PO PRN (20:30)
[2017-04-04] MEDS ORDERED: MoRPHine SULFATE 5 MG/0.25 ML UDP PO PRN (20:30)
[2017-04-04] MEDS ORDERED: NITROGLYCERIN 0.4 MG SL PER TAB CHARGE SL PRN (21:15)
[2017-04-04] MEDS ORDERED: NURSING VERBAL MED ORDER ONE (21:15)
[2017-04-04] MEDS: HYDROmorphone INJ 0.5 MG/0.5 ML SYR IV PRN (21:28)
[2017-04-04 22:04] VITALS: BP 148/89; PULSE 84; TEMP 36.9; O2SAT 96; Ht 157.5 cm; Wt 80.3 kg
[2017-04-04 22:08] LABS: CKMB/CK RATIO 1.5 (0-3.0)
--- NOTE | 2017-04-04 22:09 | History and Physical ---
History & Physical Date & Time of Service: Apr 04, 2017 at 19:52 Chief Complaint: Fall/Back Pain Primary Care Physician: Anayeli Heath History of Present Illness Source: patient The patient is a 82 year old female on chronic prednisone with a complicated past medical history significant for atrial fibrillation, diabetes, chronic kidney disease stage 3-4, depression, GERD, coronary artery disease, cerebrovascular disease, hypertension, osteoarthritis, rheumatoid arthritis , peripheral vascular disease, hyperparathyroidism, chronic right-sided weakness and numbness presented to the ER for evaluation of back pain following a fall. The patient states that she was transferring from a lift chair to her wheelchair when she missed the wheelchair and fell, landing onto her back and striking her head. She denies any lightheadedness or dizziness associated with the fall. She complains of pain in her mid and lower back as well as the back of her head. She also complains of pain in the left ribs radiating across to the right ribs. She rates her discomfort an 8/10. She denies any other injuries. She denies numbness or weakness of her extremities. She denies abdominal pain, chest pain or shortness of breath. The patient does have a history of osteoporosis and has had multiple fractures in the back. She follows with [facility]. She was found to have a new right fourth rib fracture and several new left sided rib fractures, as well as an acute to subacute horizontal fracture through the T6-T7 disc space and anterior osteophytes that extends through the inferior endplate of T6 and superior endplate of T7. There was no clear extension into the posterior elements although this fracture may be unstable. There was also an acute to subacute mildly displaced fracture of the left transverse process of L1 and of L2. She complained also of pain in the back of her head with a headache. CT of the head was negative, and CT of the cervical spine showed no new changes but with an old C7 compression fracture with some retropulsion. She denied any new weakness, numbness, or tingling other than the chronic paresthesias and numbness she has in her feet from her peripheral neuropathy. She will be admitted for pain control and an evaluation by the orthopedic spine surgeon. Of note, just prior to going to the medical floor, in the ER she complained of substernal chest pain which went away mostly on its own with no intervention and she had a normal ECG. Because of her history of coronary artery disease, she will be admitted to the telemetry floor for 24 hours of monitoring and to rule out acute coronary syndrome as well. Past Medical/Surgical History PMH: PAF Blindness of right eye CKD Stage 3-4 H/o CVA x2 and 12 TIAs Diabetes mellitus II GERD HTN HYPERPARATHYROIDISM, UNSPECIFIED Osteoarthritis PERIPH VASCULAR DIS NOS Rheumatoid arthritis on chronic prednisone VASCULAR DEMENTIA, UNCOMPLICATED VITAMIN D DEFICIENCY NOS Iron deficiency Anemia CAD-severe but not a good candidate for CABG Anxiety /Depression Osteoporosis PSH: Bilateral TKA Hysterectomy Family History Heart disease Myocardial infarction Social History Smoking Status: Former Smoker Drug Use: none Marital Status: single Housing status: [facility] Occupational Status: retired Immunizations History of Influenza Vaccine: No History of Tetanus Vaccine?: utd History of Pneumococcal: Yes Pneumococcal Date: Sep 24, 2010 History of Hepatitis B Vaccine: No Multi-Drug Resistant Organisms History of MDRO: No Allergies Coded Allergies: Iodinated Diagnostic Agents (Verified Allergy, Severe, ANAPHYLAXIS, ) [place] (Verified Allergy, Severe, RASH, HIVES, TROUBLE BREATHING, 04/04/17 ) Promethazine (Verified Allergy, Severe, HIVES, TROUBLE BREATHING, 04/04/17) Bupropion (Verified Allergy, Intermediate, RASH, 04/04/17) Diazepam (Verified Allergy, Intermediate, Rash, 04/04/17) Reported by PT. Erythromycin (Verified Allergy, Intermediate, RASH, 04/04/17) Iodine (Verified Allergy, Intermediate, RASH, HIVES, 04/04/17) Penicillins (Verified Allergy, Intermediate, RASH, 04/04/17) Phenytoin (Verified Allergy, Unknown, PT UNSURE, 04/04/17) Tamsulosin (Verified Adverse Reaction, Intermediate, DIZZINESS, 04/04/17) Home Medications Scheduled Alendronate Sodium (Fosamax), 70 MG PO WK Calcium Carbonate-Vitamin D (Oscal 500/200 D-3), 1 TAB PO BIDM Diphenhydramine Hcl (Benadryl Allergy), 25 MG PO HS Dipyridamole/Aspirin (Aggrenox 25-200 mg), 1 CAP PO BID Docusate Sodium (Colace), 100 MG PO BID Escitalopram Oxalate (Lexapro), 20 MG PO DAILY Ferrous Sulfate (Ferrous Sulfate), 325 MG PO BIDM Furosemide (Lasix), 80 MG PO BID Wnighxsi-Lchihpjrbmtt-Lzqwrbyo (Artificial Tears), 2 DROPS OPB QS Insulin Glargine (Lantus Solostar), 15 UNITS SC HS Isosorbide Mononitrate (Isosorbide Mononitrate ER), 90 MG PO QAM Lidocaine (Lidoderm Patch 5%), 1 PATCH PO ONAMOFFPM Metolazone (Zaroxolyn), 2.5 MG PO MWF Pantoprazole (Protonix), 40 MG PO QPM Polyethylene Glycol 3350 (Miralax), 17 GM PO DAILY Potassium Chloride Microencaps (Potassium Chloride Er), 2 TAB PO DAILY Prednisone (Prednisone), 5 MG PO QAM Ranolazine (Ranexa), 1,000 MG PO BID Simvastatin (Zocor), 40 MG PO HS Topiramate (Topamax), 200 MG PO BID Scheduled PRN Acetaminophen (Tylenol), 650 MG PO Q6 PRN for Pain Acetaminophen (Tylenol), 650 MG PO Q6 PRN for TEMP>100 Albuterol Hfa (Ventolin Hfa), 1-2 PUFFS INH Q4 PRN for Shortness of Breath Bisacodyl (Bisac-Evac), 1 SUPP CA UD PRN for NO BM X 3 DAYS Magnesium Hydroxide (Milk Of Magnesia), 30 ML PO UD PRN for NO BM X 3 DAYS Morphine Sulfate (Morphine Sulfate), 2.5 MG PO Q4 PRN for Moderate Pain Morphine Sulfate (Morphine Sulfate), 5 MG PO Q4 PRN for Severe Pain Simethicone (Mi-Acid Gas Relief), 80 MG PO Q6H PRN for Bloating Sodium Phosphate/Biphosphate (Fleet Enema), 1 EA CA UD PRN for NO BM X 3 DAYS Review of Systems Constitutional: No fever, No chills Eyes: No problem reported ENT: No problem reported Respiratory: No problem reported Cardiovascular: + chest pain Abdomen: No pain Musculoskeletal: + joint pain, + muscle pain Genitourinary - Female: No problem reported Neurologic: + numbness/tingling (chronically and feet) Psychiatric: No problem reported Hematologic / Lymphatic: No problem reported Integumentary: No problem reported Allergic / Immunologic: No problem reported Physical Exam Vital Signs Date Time Temp Pulse Resp B/P (MAP) Pulse Ox O2 Delivery O2 Flow Rate FiO2 04/04/17 18:20 86 20 116/70 98 Nasal Cannula 2.0 04/04/17 17:19 116/70 97 Nasal Cannula 2.0 04/04/17 16:01 88 04/04/17 15:53 37.1 89 18 133/69 95 Room Air General Appearance: WD/WN, + mild distress, + obese Head: normocephalic, atraumatic Eyes: normal inspection, PERRL, EOMI, sclerae normal ENT: hearing grossly normal, pharynx normal Neck: trachea midline Respiratory/Chest: lungs clear, normal breath sounds, no respiratory distress, no accessory muscle use Cardiovascular: regular rate, rhythm, no edema, no gallop, no murmur, normal peripheral pulses Abdomen/GI: normal bowel sounds, non tender, soft, no organomegaly Back: + pertinent finding (not able to examine secondary to severe pain with sitting up) Extremities/Musculoskelatal: normal inspection, no calf tenderness, no pedal edema Neurologic/Psych: alert, normal mood/affect, oriented x 3 Skin: normal color, warm/dry, no rash Lymphatic: no adenopathy Diagnostics Diagnostic Radiology Cervical spine CT: 1. No acute cervical spine fracture or subluxation. 2. Chronic moderate C7 compression fracture with mild retropulsion which is unchanged in appearance. Chest CT: 1. Several mildly displaced acute to subacute left-sided rib fractures which are new since chest CT of March 15, 2017. No pneumothorax. 2. Slight increase in size of a moderate right pleural effusion. 3. Horizontal fracture through the T6-T7 disc space which is new since CT of March 15, 2017 and is acute to subacute. No definite extension into the posterior elements although given extensive anterior osteophytosis, this fracture may be unstable. 4. Acute to subacute minimally displaced fracture of the left transverse process of L1. Head CT: Negative for acute change Lumbar spine CT: 1. Bilateral transverse process fractures of L1 and left transverse process fracture of L2. These fractures are acute to subacute. 2. Old T12 and L1 compression fractures Thoracic spine CT: 1. Acute to subacute horizontal fracture through the T6-T7 disc space and anterior osteophytes that extends through the inferior endplate of T6 and superior endplate of T7. No clear extension into the posterior elements although this fracture may be unstable. 2. Numerous old thoracic spine fractures. 3. Acute to subacute bilateral rib fractures, as described above. No pneumothorax. Moderate right pleural effusion. 4. Acute to subacute mildly displaced fracture of the left transverse process of L1. Impression Assessment and Plan The patient is a 82 year old female on chronic prednisone with a complicated past medical history significant for atrial fibrillation, diabetes mellitus II, chronic kidney disease stage 3-4, depression, GERD, coronary artery disease, cerebrovascular disease, hypertension, osteoarthritis, rheumatoid arthritis , peripheral vascular disease, hyperparathyroidism, chronic right-sided weakness and numbness who presents with a fall and multiple bilateral rib fractures, and a possibly unstable T6-T7 fracture. Of note, just prior to going to the medical floor, in the ER she complained of substernal chest pain which went away mostly on its own with no intervention and she had a normal ECG. Because of her history of coronary artery disease, she will be admitted to the telemetry floor for 24 hours of monitoring and to rule out acute coronary syndrome as well. Bilateral rib fractures/T6-T7 possibly unstable fracture/recurrent falls-has known osteoporosis and these are all pathologic osteoporotic fractures. She is neurovascularly intact at this time. -Pain control with Dilaudid when necessary, Tylenol -Appreciate orthopedic spine consultation for any further management -Continue Fosamax but consider switching to Prolia for treatment of her severe osteoporosis -PT/OT consultation Atypical chest pain/CAD/hypertension/peripheral vascular disease/PAF/history of CVA and TIAs-in normal sinus rhythm here, blood pressure is fairly well controlled. She is not on anticoagulation -Trend troponins and ECG -Nitroglycerin when necessary -Continue home Aggrenox, Ranexa, Imdur, Lasix, metolazone, and simvastatin -Monitor on telemetry for 24 hours until rules out for acute coronary syndrome Moderate right-sided pleural effusion-has been there previously, unclear etiology but could be from CHF -Follow and consider thoracentesis Diabetes mellitus type 2-fairly well controlled on last hemoglobin A1c -Continue home Lantus and sliding scale insulin -Check hemoglobin A1c Chronic kidney disease stage 3-4 -Renally dose all medications -Avoid nephrotoxins -Follow PRP Rheumatoid arthritis, peripheral neuropathy, chronic pain-stable -Continue prednisone 5 mg daily -Continue Topamax and by mouth morphine Prophylaxis-heparin subcutaneous Disposition-to [facility] Anayeli with PT when medically ready Level of Care Telemetry VTE Prophylaxis Risk Level: Moderate Given or contraindicated: Unfractionated heparin SQ Social Service Consult Lives in [facility] Additional Copies To [place], Anayeli
[2017-04-04] MEDS: DOCUSATE SODIUM 100 MG CAP PO SCH (23:11)
[2017-04-04] MEDS: RANOLAZINE 500 MG ER TAB PO SCH (23:11)
[2017-04-04] MEDS: SIMVASTATIN 40 MG TAB PO SCH (23:12)
[2017-04-04] MEDS: DIPYRIDAMOLE/ASPIRIN CAP PO SCH (23:12)
[2017-04-04] MEDS: TOPIRAMATE 100 MG TAB PO SCH (23:12)
[2017-04-04] MEDS: PANTOprazole SOD 40 MG TAB PO SCH (23:13)
[2017-04-04] MEDS: INSULIN ASPART 100 UNITS/ML 3 ML PEN SC SCH (23:27)
[2017-04-04 23:59] VITALS: O2SAT 96
[2017-04-05] VITALS (8 sets, daily range): BP systolic 100–132; BP diastolic 60–77; PULSE 70–107; TEMP 36.6–37.2; O2SAT 92–99
[2017-04-05] MEDS: INSULIN GLARGINE SOLOSTAR 100 UNITS/ML 3 ML PEN SC SCH ×2 (00:18→20:49)
[2017-04-05] MEDS: ARTIFICIAL TEARS OP SOLN OPB SCH ×8 (00:59→23:11)
[2017-04-05 03:43] LABS: BASO % 0.2 %; BASO ABS # 0.02 K/uL (0-0.2); EOS % 5.2 %; HEMATOCRIT 31.9 % (37-47); IG% 0.2 %; LYMPH % 24.4 %; LYMPH ABS # 2.22 K/uL (1.2-3.4); MEAN CELL VOLUME 82.9 fL (80-100); MEAN CORPUSCULAR HGB CONC 32.6 g/dl (32-36); MEAN PLATELET VOLUME 8.5 fL (7.4-10.4); MONO % 10.2 %; NEUT % 59.8 %; PLATELET COUNT 311 K/uL (130-400); RED BLOOD COUNT 3.85 M/uL (4.2-5.4); WHITE BLOOD COUNT 9.09 K/uL (4.8-10.8)
[2017-04-05] MEDS: HYDROmorphone INJ 0.5 MG/0.5 ML SYR IV PRN ×3 (03:46→19:55)
[2017-04-05 04:05] LABS: BUN/CREATININE RATIO 12.9 (10-20); CALCIUM 9.3 mg/dl (8.5-10.1); CREATININE 1.5 mg/dl (0.60-1.20); MAGNESIUM 2.6 mg/dl (1.8-2.4)
[2017-04-05 04:23] LABS: ANISOCYTOSIS PRESENT; COMPLETE YES; POLYCHROMASIA 1+
[2017-04-05] MEDS: HEPARIN SOD 5000 UNIT/0.5 ML CARP SQ SCH ×3 (05:23→20:49)
[2017-04-05] MEDS: MoRPHine SULFATE 5 MG/0.25 ML UDP PO PRN ×2 (07:43→20:44)
[2017-04-05] MEDS: FERROUS SULFATE 325 MG TAB PO SCH ×2 (07:46→16:20)
[2017-04-05] MEDS: CALCIUM 600MG + VIT D 400 IU TAB PO SCH ×2 (07:46→16:19)
[2017-04-05] MEDS: DOCUSATE SODIUM 100 MG CAP PO SCH ×2 (07:47→19:57)
[2017-04-05] MEDS: DIPYRIDAMOLE/ASPIRIN CAP PO SCH ×2 (07:47→19:57)
[2017-04-05] MEDS: POTASSIUM CHLORIDE 20 MEQ TABCR PO SCH (07:48)
[2017-04-05] MEDS: ISOSORBIDE MONONITRATE 30 MG TABCR PO SCH (07:48)
[2017-04-05] MEDS: TOPIRAMATE 100 MG TAB PO SCH ×2 (07:48→19:59)
[2017-04-05] MEDS: LIDODERM (LIDOCAINE) PATCH 5% TD SCH (07:49)
[2017-04-05] MEDS: ESCITALOPRAM OXALATE 20 MG TAB PO SCH (07:49)
[2017-04-05] MEDS: POLYETHYLENE (MIRALAX) 17 GM PACK PO SCH (07:50)
[2017-04-05] MEDS: RANOLAZINE 500 MG ER TAB PO SCH ×2 (07:50→20:00)
[2017-04-05] MEDS: FUROSEMIDE 80 MG TAB PO SCH ×2 (07:51→16:20)
[2017-04-05] MEDS: METOLAZONE 2.5 MG TAB PO SCH (07:51)
[2017-04-05] MEDS: INSULIN ASPART 100 UNITS/ML 3 ML PEN SC SCH ×4 (08:08→20:49)
--- NOTE | 2017-04-05 12:16 | CONSULTATION REPORT ---
DATE OF CONSULTATION: 04/05/2017 DATE OF CONSULTATION: 04/05/2017. CHIEF COMPLAINT: Thoracic and lower back pain. HISTORY OF PRESENT ILLNESS: Ms. Hou is a pleasant 82-year-old female who had taken a fall while at home yesterday. She states she was in her kitchen, lost her balance and slipped. She has had significant pain ever since. She presented to the Emergency Room with complaints of pain along the left side of her back, the chests, ribs, and lower back as well. CT scans were performed revealing multilevel changes and possible fractures through T6-T7 segment. We were consulted to review this fracture. She has not had any numbness or tingling in the legs themselves other than her baseline neuropathic pain and numbness. She has not noticed any significant weakness but it hurts just to move her extremities. She has had a history significant for multiple falls. She denies any chelsea weakness in legs or any other numbness, tingling or paresthesias. PAST MEDICAL HISTORY: Significant for blindness in right eye, chronic kidney disease, CVAs x2, diabetes, GERD, hypertension, hyperthyroidism, osteoarthritis, peripheral vascular disease, rheumatoid arthritis, vascular dementia, vitamin D deficiency, iron deficiency, cardiac artery disease, anxiety, depression and osteoporosis. PAST SURGICAL HISTORY: Includes bilateral total knee arthroplasties and hysterectomy. SOCIAL HISTORY: The patient is an 82-year-old female. She is a former smoker. Denies any drug use. She is single. She typically resides at a custodial. MEDICATIONS: Include Fosamax, Os-Joe, Benadryl, Aggrenox, Colace, Lexapro, iron, Artificial Tears, Lantus, Lidoderm patch, Zaroxolyn, Protonix, MiraLax, potassium chloride, prednisone, Ranexa, Zocor, Topamax. She also uses Tylenol, albuterol, milk of magnesia and morphine for pain. ALLERGIES: SHE HAS ALLERGIES TO IODINE, LITHIUM, PROMETHAZINE, BUPROPION, DIAZEPAM, ERYTHROMYCIN, IODINE, PENICILLINS, PHENANTOIN AND TAMSULOSIN. PHYSICAL EXAMINATION: GENERAL: The patient is alert and oriented. She is able to move her upper and lower extremities without difficulty. Strength was tested and having full strength in her lower extremities and somewhat limited in her upper secondary to pain along the left rib area. She is able to log roll without difficulties. She has some blunting to sharp and dull in the distal portion of her feet, full sensation in the upper part and lower part of the legs other than the feet themselves. ABDOMEN: Soft, nontender. EXTREMITIES: Calves are supple and nontender. She is nontender about the back itself. She does have increased pain with log rolling. RADIOGRAPHIC IMAGES: CT scans of the cervical, thoracic and lumbar spine are all reviewed. 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 Chronic compression fracture C7. At T6-7, there is a fracture through the disc space which appears to be previously ankylosed. Do not appreciate any disruption. No involvement of the posterior elements. She has multilevel degenerative changes of the lumbar spine and moderate stenosis with foraminal stenosis as well. ASSESSMENT: The patient has fracture through the T6-7 segments likely related to more recent fall. PLAN: At this point, I would like the patient to undergo an MRI of her thoracic spine if tolerated. This will help determine the acuity of the fracture itself and make sure there is no cord or ligamentous involvement making this a more unstable fracture. We will assess her once the MRI has been completed and possibly have her fit for a TLSO which she would need to wear when she is up and walking. I discussed with the patient and she agrees. We will see her tomorrow. SHARIF
[2017-04-05 15:02] LABS: BUN/CREATININE RATIO 12.2 (10-20); CALCIUM 9.2 mg/dl (8.5-10.1); CREATININE 1.7 mg/dl (0.60-1.20); POTASSIUM 2.9 mmol/L (3.5-5.1)
--- NOTE | 2017-04-05 19:39 | Hospitalist Progress Note ---
Hospitalist Progress Note Date of Service Apr 05, 2017. Subjective Pt evaluation today including: conversation w/ patient, chart review, lab review, review of inpatient medication list Patient complaining of back pain Objective Vital Signs Date Time Temp Pulse Resp B/P (MAP) Pulse Ox O2 Delivery O2 Flow Rate FiO2 04/05/17 16:00 93 Room Air 04/05/17 15:35 37.0 83 21 116/70 (85) 93 Room Air 04/05/17 12:00 Room Air 04/05/17 11:55 37.1 81 17 100/63 (75) 92 Room Air 04/05/17 08:00 Room Air 04/05/17 07:34 36.7 107 18 115/67 (83) 96 Nasal Cannula 2.0 04/05/17 04:00 Nasal Cannula 2.0 04/05/17 04:00 36.6 70 18 102/60 (74) 99 Nasal Cannula 2.0 04/05/17 00:01 36.7 77 20 123/74 (90) 99 2.0 04/04/17 23:59 96 Nasal Cannula 2.0 04/04/17 22:04 36.9 84 20 148/89 96 Nasal Cannula 2.0 04/04/17 21:28 81 19 141/81 96 Nasal Cannula 2.0 04/04/17 21:21 106/67 04/04/17 21:19 121/71 04/04/17 21:17 149/68 04/04/17 21:15 77 20 99 04/04/17 21:00 80 21 142/81 92 04/04/17 20:45 82 98 04/04/17 20:30 81 99 04/04/17 20:15 74 31 99 04/04/17 20:00 82 24 99 04/04/17 19:59 76 24 160/88 99 Room Air Physical Exam General Appearance: no apparent distress Eyes: normal inspection ENT: hearing grossly normal Neck: supple Respiratory/Chest: lungs clear Cardiovascular: regular rate, rhythm Abdomen: normal bowel sounds, non tender Extremities: non-tender Neurologic/Psychiatric: alert Laboratory Results Last 24 Hours Test 04/04/17 21:18 04/04/17 21:38 04/04/17 23:03 04/05/17 03:30 Bedside Glucose 149 mg/dl 140 mg/dl Total Creatine Kinase 89 U/L Creatine Kinase MB 1.3 ng/ml Creatine Kinase MB Ratio 1.5 Troponin I 0.018 ng/ml 0.019 ng/ml White Blood Count 9.09 K/uL Red Blood Count 3.85 M/uL Hemoglobin 10.4 g/dL Hematocrit 31.9 % Mean Corpuscular Volume 82.9 fL Mean Corpuscular Hemoglobin 27.0 pg Mean Corpuscular Hemoglobin Concent 32.6 g/dl Platelet Count 311 K/uL Mean Platelet Volume 8.5 fL Neutrophils (%) (Auto) 59.8 % Lymphocytes (%) (Auto) 24.4 % Monocytes (%) (Auto) 10.2 % Eosinophils (%) (Auto) 5.2 % Basophils (%) (Auto) 0.2 % Neutrophils # (Auto) 5.43 K/uL Lymphocytes # (Auto) 2.22 K/uL Monocytes # (Auto) 0.93 K/uL Eosinophils # (Auto) 0.47 K/uL Basophils # (Auto) 0.02 K/uL RDW Standard Deviation 64.6 fL RDW Coefficient of Variation 21.2 % Immature Granulocyte % (Auto) 0.2 % Immature Granulocyte # (Auto) 0.02 K/uL Polychromasia 1+ Anisocytosis PRESENT Sodium Level 133 mmol/L Potassium Level 3.0 mmol/L Chloride Level 90 mmol/L Carbon Dioxide Level 35 mmol/L Anion Gap 8.0 mmol/L Blood Urea Nitrogen 19 mg/dl Creatinine 1.50 mg/dl Est Creatinine Clear Calc Drug Dose 29.5 ml/min Estimated GFR () 37.5 Estimated GFR (Non- 32.3 BUN/Creatinine Ratio 12.9 Random Glucose 140 mg/dl Calcium Level 9.3 mg/dl Magnesium Level 2.6 mg/dl Test 04/05/17 06:43 04/05/17 08:47 04/05/17 11:25 04/05/17 14:20 Bedside Glucose 198 mg/dl 217 mg/dl Troponin I 0.015 ng/ml Sodium Level 129 mmol/L Potassium Level 2.9 mmol/L Chloride Level 88 mmol/L Carbon Dioxide Level 33 mmol/L Anion Gap 8.0 mmol/L Blood Urea Nitrogen 21 mg/dl Creatinine 1.70 mg/dl Est Creatinine Clear Calc Drug Dose 26.4 ml/min Estimated GFR () 32.2 Estimated GFR (Non- 27.8 BUN/Creatinine Ratio 12.2 Random Glucose 205 mg/dl Calcium Level 9.2 mg/dl Test 04/05/17 16:17 Bedside Glucose 210 mg/dl Assessment and Plan The patient is a 82 year old female on chronic prednisone with a complicated past medical history significant for atrial fibrillation, diabetes mellitus II, chronic kidney disease stage 3-4, depression, GERD, coronary artery disease, cerebrovascular disease, hypertension, osteoarthritis, rheumatoid arthritis , peripheral vascular disease, hyperparathyroidism, chronic right-sided weakness and numbness who presents with a fall and multiple bilateral rib fractures, and a possibly unstable T6-T7 fracture. 1. Bilateral rib fractures/T6-T7 possibly unstable fracture/recurrent falls- has known osteoporosis and these are all pathologic osteoporotic fractures. She is neurovascularly intact at this time. -Pain control with Dilaudid when necessary, Tylenol -Appreciate orthopedic spine consultation for any further management -Continue Fosamax but consider switching to Prolia for treatment of her severe osteoporosis -PT/OT consultation Patient cannot undergo MRI because of metal in her eye. Bone scan might help indicate acute fracture of T6-T7 2. Atypical chest pain/CAD/hypertension/peripheral vascular disease/PAF/ history of CVA and TIAs-in normal sinus rhythm here, blood pressure is fairly well controlled. She is not on anticoagulation Troponins are negative -Nitroglycerin when necessary -Continue home Aggrenox, Ranexa, Imdur, Lasix, metolazone, and simvastatin Ruled out for DE 3. Moderate right-sided pleural effusion-has been there previously, unclear etiology but could be from CHF -Follow and consider thoracentesis 4. Diabetes mellitus type 2-fairly well controlled on last hemoglobin A1c -Continue home Lantus and sliding scale insulin -Check hemoglobin A1c 5. Chronic kidney disease stage 3-4 -Renally dose all medications -Avoid nephrotoxins -Follow PRP 6. Rheumatoid arthritis, peripheral neuropathy, chronic pain-stable -Continue prednisone 5 mg daily -Continue Topamax and by mouth morphine We'll add senna to MiraLAX patient has a tendency towards constipation with narcotics 7. Prophylaxis-heparin subcutaneous 8. Disposition-to [facility] with PT when medically ready 9. CODE STATUS discussed with the patient she does not want to be resuscitated Level of Care Telemetry VTE Prophylaxis Risk Level: Moderate Given or contraindicated: Unfractionated heparin SQ Social Service Consult Lives in Shelter
[2017-04-05] MEDS: SIMVASTATIN 40 MG TAB PO SCH (19:59)
[2017-04-05] MEDS: PANTOprazole SOD 40 MG TAB PO SCH (19:59)
[2017-04-05] MEDS: SENNA 17.6 MG/10 ML UDP PO SCH (20:00)
[2017-04-06 03:15] VITALS: BP 142/60; PULSE 79; TEMP 37; O2SAT 95
[2017-04-06] MEDS: HYDROmorphone INJ 0.5 MG/0.5 ML SYR IV PRN ×2 (04:43→11:57)
[2017-04-06] MEDS: HEPARIN SOD 5000 UNIT/0.5 ML CARP SQ SCH ×3 (05:29→20:39)
[2017-04-06] MEDS: MoRPHine SULFATE 5 MG/0.25 ML UDP PO PRN (06:27)
[2017-04-06 07:04] LABS: ESTIMATED AVERAGE GLUCOSE 174 mg/dl; HA1C FLAG Normal (Normal)
[2017-04-06 07:08] VITALS: BP 143/75; PULSE 77; TEMP 37.1; O2SAT 92
[2017-04-06] MEDS: RANOLAZINE 500 MG ER TAB PO SCH ×2 (08:00→19:58)
[2017-04-06] MEDS: TOPIRAMATE 100 MG TAB PO SCH ×2 (08:00→19:58)
[2017-04-06] MEDS: METOLAZONE 2.5 MG TAB PO SCH (08:01)
[2017-04-06] MEDS: ISOSORBIDE MONONITRATE 30 MG TABCR PO SCH (08:01)
[2017-04-06] MEDS: CALCIUM 600MG + VIT D 400 IU TAB PO SCH ×2 (08:01→16:38)
[2017-04-06] MEDS: FERROUS SULFATE 325 MG TAB PO SCH ×2 (08:02→16:39)
[2017-04-06] MEDS: ESCITALOPRAM OXALATE 20 MG TAB PO SCH (08:02)
[2017-04-06] MEDS: DOCUSATE SODIUM 100 MG CAP PO SCH ×2 (08:02→19:58)
[2017-04-06] MEDS: POTASSIUM CHLORIDE 20 MEQ TABCR PO SCH (08:02)
[2017-04-06] MEDS: POLYETHYLENE (MIRALAX) 17 GM PACK PO SCH (08:03)
[2017-04-06] MEDS: LIDODERM (LIDOCAINE) PATCH 5% TD SCH (08:03)
[2017-04-06] MEDS: FUROSEMIDE 80 MG TAB PO SCH ×2 (08:03→16:39)
[2017-04-06] MEDS: ARTIFICIAL TEARS OP SOLN OPB SCH ×6 (08:03→22:31)
[2017-04-06] MEDS: DIPYRIDAMOLE/ASPIRIN CAP PO SCH ×2 (08:04→19:58)
[2017-04-06] MEDS: INSULIN ASPART 100 UNITS/ML 3 ML PEN SC SCH ×4 (08:05→20:38)
[2017-04-06 08:10] VITALS: O2SAT 92
[2017-04-06] MEDS ORDERED: POLYETHYLENE (MIRALAX) 17 GM PACK PO SCH (09:00)
[2017-04-06 10:34] VITALS: BP 108/68; PULSE 83; TEMP 37; O2SAT 91
[2017-04-06 10:35] LABS: HEMATOCRIT 34.3 % (37-47); MEAN CELL VOLUME 82.7 fL (80-100); MEAN CORPUSCULAR HEMOGLOBIN 26.3 pg (25-34); MEAN CORPUSCULAR HGB CONC 31.8 g/dl (32-36); MEAN PLATELET VOLUME 8.6 fL (7.4-10.4); PLATELET COUNT 331 K/uL (130-400); RED BLOOD COUNT 4.15 M/uL (4.2-5.4)
[2017-04-06 11:04] LABS: BUN/CREATININE RATIO 14.7 (10-20); CALCIUM 9.9 mg/dl (8.5-10.1); CREATININE 1.9 mg/dl (0.60-1.20); MAGNESIUM 2.6 mg/dl (1.8-2.4); POTASSIUM 2.3 mmol/L (3.5-5.1)
[2017-04-06] MEDS ORDERED: POTASSIUM CHLORIDE 20 MEQ TABCR PO ONE (12:00)
[2017-04-06] MEDS: POTASSIUM CHLR 10 MEQ / WTR 10 MEQ in PREMIXED WATER 100 ML IV SCH ×4 (12:26→17:35)
[2017-04-06] MEDS: POTASSIUM CHLORIDE INJ 40 MEQ in SODIUM CHLORIDE 0.9% 1000ML 1,000 ML IV SCH ×2 (12:26→19:54)
--- NOTE | 2017-04-06 14:12 | Progress Note ---
Progress Note Date of Service Apr 06, 2017. Progress Note Patient complaining of thoracic back pain. She's not been out of bed yet. She denies any numbness or tingling in the lower extremities. On physical exam she does have difficulty sitting up. She exhibits excellent strength testing bilateral external release. Again does demonstrate distress with motion about the bed. 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 Plan at this point we do have concerns regarding underlying instability of the fracture site in light of her markedly spondylotic spine. She is unable to tolerate an MRI. Subsequently would recommend a follow-up CAT scan in approximately 1 week. In terms she may begin transfers from bed to chair. Again she be a very poor candidate for a brace. Her body habitus and rib fractures would make this a very intolerable form of mobilization.
--- NOTE | 2017-04-06 14:41 | Hospitalist Progress Note ---
Hospitalist Progress Note Date of Service Apr 06, 2017. (Mikaela Rodriguez ., KERWINC) Subjective Pt evaluation today including: conversation w/ patient, physical exam, chart review, lab review, review of inpatient medication list Pain: 10/10 sharp back pain PO Intake: Tolerating PO diet Voiding: allison catheter in place Patient was sleeping comfortably upon my arrival. After waking her up, she complains of a 10/10 sharp pain in her mid back. She states this is worse than yesterday. She also complains of a 10/10 sharp pain in her abdomen. She also complains of some shortness of breath and a non-productive cough. The patient does not seem to be a very reliable historian as the history she provides today keeps changing, and despite her 10/10 pain she had been sleeping prior to my arrival, requiring a sternal rub to wake her. The patient denies fevers, chills , sweats, chest pain, palpitations, claudication, wheezing, nausea, vomiting, abdominal pain, dysuria, hematuria, urinary retention, paralysis, weakness, numbness and tingling. Additional Comments: See HPI for pertinent positives and negatives. All other systems reviewed and negative. (Mikaela Rodriguez ., SUSAN-C) Objective Vital Signs Date Time Temp Pulse Resp B/P (MAP) Pulse Ox O2 Delivery O2 Flow Rate FiO2 04/06/17 12:00 Room Air 04/06/17 10:34 37.0 83 16 108/68 (81) 91 Room Air 04/06/17 08:10 92 Room Air 04/06/17 07:08 37.1 77 15 143/75 (97) 92 Room Air 04/06/17 04:00 Room Air 04/06/17 03:15 37.0 79 18 142/60 (87) 95 Room Air 04/05/17 23:59 Room Air 04/05/17 22:50 37.2 84 18 132/77 (95) 94 Room Air 04/05/17 20:13 36.9 78 18 119/70 (86) 92 Room Air 04/05/17 20:00 Room Air 04/05/17 16:00 93 Room Air 04/05/17 15:35 37.0 83 21 116/70 (85) 93 Room Air (Mikaela Rodriguez ., KERWINC) Physical Exam Notes: General appearance: +Obese. Well-developed, well-nourished, no apparent distress Head: Normocephalic, atraumatic Eyes: +Right lazy eye. Right eye cataract. PERRL, EOMI ENT: Normal ENT inspection, hearing grossly normal, pharynx normal Neck: Supple, no JVD, trachea midline Respiratory/Chest: Lungs clear to auscultation, normal breath sounds, no respiratory distress Cardiovascular: Regular rate & rhythm, no gallop, no murmur Back: +Pt refused to sit up or roll over for examination of back due to pain Abdomen/GI: Normal bowel sounds, non-tender, soft Extremities/Musculoskeletal: Normal inspection, no calf tenderness, no pedal edema Neurological/Psych: +Disoriented to time. Knew month but not the year. Alert , normal mood/affect, oriented x 2 Skin: Normal color, warm/dry, no rash (Mikaela Rodriguez ., KERWINC) Laboratory Results Last 24 Hours Test 04/05/17 14:20 04/05/17 16:17 04/05/17 20:35 04/06/17 06:27 Sodium Level 129 mmol/L Potassium Level 2.9 mmol/L Chloride Level 88 mmol/L Carbon Dioxide Level 33 mmol/L Anion Gap 8.0 mmol/L Blood Urea Nitrogen 21 mg/dl Creatinine 1.70 mg/dl Est Creatinine Clear Calc Drug Dose 26.4 ml/min Estimated GFR () 32.2 Estimated GFR (Non- 27.8 BUN/Creatinine Ratio 12.2 Random Glucose 205 mg/dl Calcium Level 9.2 mg/dl Bedside Glucose 210 mg/dl 180 mg/dl 174 mg/dl Test 04/06/17 10:21 04/06/17 11:24 White Blood Count 9.80 K/uL Red Blood Count 4.15 M/uL Hemoglobin 10.9 g/dL Hematocrit 34.3 % Mean Corpuscular Volume 82.7 fL Mean Corpuscular Hemoglobin 26.3 pg Mean Corpuscular Hemoglobin Concent 31.8 g/dl RDW Standard Deviation 61.2 fL RDW Coefficient of Variation 20.2 % Platelet Count 331 K/uL Mean Platelet Volume 8.6 fL Sodium Level 126 mmol/L Potassium Level 2.3 mmol/L Chloride Level 81 mmol/L Carbon Dioxide Level 38 mmol/L Anion Gap 7.0 mmol/L Blood Urea Nitrogen 28 mg/dl Creatinine 1.90 mg/dl Est Creatinine Clear Calc Drug Dose 23.1 ml/min Estimated GFR () 28.2 Estimated GFR (Non- 24.3 BUN/Creatinine Ratio 14.7 Random Glucose 163 mg/dl Calcium Level 9.9 mg/dl Magnesium Level 2.6 mg/dl Bedside Glucose 189 mg/dl (Mikaela Rodriguez ., KERWINC) Assessment and Plan 82 year old female on chronic prednisone with a history of paroxysmal a-fib, CAD , HTN, DM II, CKD stage III-IV, depression, and RA who presents with a fall and multiple bilateral rib fractures, and a possibly unstable T6-T7 fracture. Bilateral rib fractures/T6-T7 possibly unstable fracture/recurrent falls, known osteoporosis and chronic prednisone use--stable -Admit to telemetry. No acute events overnight. Pt in sinus rhythm with PACs, HR 70s-80s. -D/C Dilaudid. Pt somewhat difficult to rouse, will switch to PO meds -Percocet 5/325 mg 1 tab PO q4h prn pain -Tylenol prn pain -Ortho spine consulted, appreciate recs: Obtain MRI of thoracic spine if able. Fit pt for TLSO brace. -Pt unable to do MRI due to metal in her eye -Continue Fosamax, consider switching to Prolia outpatient -PT/OT evaluate and treat Hypokalemia--ongoing -Potassium 2.3 on 04/06 despite daily oral supplementation -Potassium chloride 10 mEq IV q1h x 4 -KCl 40 mEq PO x 1 now -NSS + 40 mEq KCl at 125 cc/hr -Continue KCl 40 mEq PO qd -Recheck PRP at 1600 Atypical chest pain, CAD, HTN, HLD--chest pain resolved, ACS ruled out. -No events on tele -Troponin negative x 3 -EKG no ischemic changes -Continue Aggrenox BID, Ranexa 1000 mg PO BID, Imdur 90 mg PO qd, simvastatin 40 mg PO qd Diabetes mellitus type 2--HgbA1c on 04/05 was 7.7 -Lantus 15 units SC qpm -Insulin sliding scale -Check BSGs q ac and qhs LITA on CKD stage III-IV--baseline creatinine appears to be around 1.4-1.6, but had as been as low as 1.2 earlier in March 2017 -Creatinine 1.9 on 04/06 -IVF as above -Continue to monitor Depression -Continue Lexapro 20 mg PO qd Rheumatoid arthritis, peripheral neuropathy, chronic pain--stable -Continue prednisone 5 mg daily -Continue Topamax and by mouth morphine DVT prophylaxis -Heparin 5000 units SC q8h Dispo -[facility] with PT when medically stable (Mikaela Rodriguez ., PA-C) I agree with PA assessment and plan and have seen and examined pt myself Resting comfortably in bed Labs and vitals reviewed Noted severe hypokalemia Replacement added IVF added Hyponatremia noted Pain meds adjusted (Too Pelletier, D.O.)
[2017-04-06 15:26] VITALS: BP 107/56; PULSE 78; TEMP 37; O2SAT 93
--- NOTE | 2017-04-06 16:05 | Palliative Care Consultation ---
Consultation Date of Consultation: Apr 06, 2017. Requesting Physician: Dr. Green Attending Physician: Dr. Pelletier Reason for Consultation: Goals of care History of Present Illness This 82 year old female patent presented to the hospital two days ago with c/o fall and back pain. She was found to have a new right fourth rib fracture and several new left sided rib fractures, as well as an acute to subacute horizontal fracture through the T6-T7 disc space and anterior osteophytes that extends through the inferior endplate of T6 and superior endplate of T7. CT head negative, CT of c-spine showed old C7 compression fracture. Has a complicated and extensive past medical history as outlined below, she also has had previous back fractures for which she follows with [facility]. She was seen by ortho here, unfortunately cannot have MRI due to metal in her eye. Patient also with LITA, creatinine 1.8-1.9 at baseline but has been as low as 1.2, hypokalemia, and did have some chest pain in ED. Troponin has been negative. Patient resides at [facility]. I met with the patient in room 240-2. She is awake, alert and oriented x4. Is somewhat forgetful about things like when she last received pain/nausea medication, but able to have meaningful conversation. Patient recalled how she fell and knows she has fractures in her spine and ribs. Her goal is to have pain control enough so that she is able to have therapy at [facility]. She normally is able to assist with her transfers to/from wheelchair. Patient is okay with coming to hospital for treatment but confirmed she is a DNR and wants to avoid aggressive measures, ICU, etc. she does have a living will which names her daughter Skylar Pearson as her health care agent. she states that Skylar knows her wishes for when she is end-stage, which would include comfort measures only. Patient states her pain is in her lower back, 5/10 at this time. Is >10/10 at its worst. She occasionally has "gall bladder pain and leg pain," but not at this time. She was nauseated this morning after she ate which is not normal for her. 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 Diabetes mellitus II GERD HTN HYPERPARATHYROIDISM, UNSPECIFIED Osteoarthritis PERIPH VASCULAR DIS NOS Rheumatoid arthritis on chronic prednisone VASCULAR DEMENTIA, UNCOMPLICATED VITAMIN D DEFICIENCY NOS Iron deficiency Anemia CAD-severe but not a good candidate for CABG Anxiety /Depression Osteoporosis PSH: Bilateral TKA Hysterectomy Social History Smoking Status: Former Smoker History of Alcohol Use: No Drug Use: none Marital Status: single Housing Status: detention Occupation Status: retired Review of Systems Constitutional: + weakness (generalized) Respiratory: No cough, No wheezing, No shortness of breath Cardiac: No chest pain Abdomen: + nausea (earlier), No pain, No vomiting Musculoskeletal: + problem reported (back pain) Female : No problem reported Psychiatric: No depression symptoms, No anxiety Allergies Coded Allergies: Iodinated Diagnostic Agents (Verified Allergy, Severe, ANAPHYLAXIS, ) [place] (Verified Allergy, Severe, RASH, HIVES, TROUBLE BREATHING, 04/04/17 ) Promethazine (Verified Allergy, Severe, HIVES, TROUBLE BREATHING, 04/04/17) Bupropion (Verified Allergy, Intermediate, RASH, 04/04/17) Diazepam (Verified Allergy, Intermediate, Rash, 04/04/17) Reported by PT. Erythromycin (Verified Allergy, Intermediate, RASH, 04/04/17) Iodine (Verified Allergy, Intermediate, RASH, HIVES, 04/04/17) Penicillins (Verified Allergy, Intermediate, RASH, 04/04/17) Phenytoin (Verified Allergy, Unknown, PT UNSURE, 04/04/17) Tamsulosin (Verified Adverse Reaction, Intermediate, DIZZINESS, 04/04/17) Medications Current Inpatient Medications Medications (Trade) Dose Ordered Sig/Phil Route Start Time Stop Time Status Last Admin Dose Admin Heparin Sodium (Porcine) (Heparin Sq 5000 Unit/0.5ml) 5,000 unit Q8H SQ 04/05/17 06:00 05/05/17 05:59 04/06/17 13:56 5,000 UNIT Acetaminophen (Tylenol Tab) 650 mg Q4H PRN PO 04/04/17 20:15 05/04/17 20:14 Polyethylene (Miralax Powder Packet) 17 gm DAILY PRN PO 04/04/17 20:15 05/04/17 20:14 Ondansetron HCl (Zofran Inj) 4 mg Q6H PRN IV 04/04/17 20:15 05/04/17 20:14 04/06/17 13:25 4 MG Insulin Aspart (novoLOG ASPART) SLIDING SCALE If C... ACHS SC 04/04/17 23:30 05/04/17 23:29 04/06/17 12:04 3 UNITS Glucose (Glucose 40% Gel) 15-30 GRAMS 15 GRAMS... UD PRN PO 04/04/17 20:15 05/04/17 20:14 Glucose (Glucose Chew Tab) 4-8 Tablets 4 Tabl... UD PRN PO 04/04/17 20:15 05/04/17 20:14 Dextrose (Dextrose 50% 50ML Syringe) 25-50ML OF 50% DW IV FOR... UD PRN IV 04/04/17 20:15 05/04/17 20:14 Glucagon (Glucagon Inj) 1 mg UD PRN SQ 04/04/17 20:15 05/04/17 20:14 Albuterol (Ventolin Hfa Inhaler) 2 puffs Q4 PRN INH 04/04/17 20:30 05/04/17 20:29 Alendronate Sodium (Fosamax Tab) 70 mg Sa@0600 PO 04/11/17 06:00 05/11/17 05:59 Bisacodyl (Dulcolax Supp) 10 mg UD PRN ME 04/04/17 20:30 05/04/17 20:29 Diphenhydramine HCl (Benadryl Cap) 25 mg HS PO 04/04/17 21:00 05/04/17 20:59 04/05/17 19:59 25 MG Dipyridamole/ Aspirin (Aggrenox 200MG/ 25MG Cap) 1 cap BID PO 04/04/17 21:00 05/04/17 20:59 04/06/17 08:04 1 CAP Docusate Sodium (coLACE CAP) 100 mg BID PO 04/04/17 21:00 05/04/17 20:59 04/06/17 08:02 100 MG Escitalopram Oxalate (Lexapro Tab) 20 mg DAILY PO 04/05/17 09:00 05/05/17 08:59 04/06/17 08:02 20 MG Ferrous Sulfate (Feosol Tab) 325 mg BIDM PO 04/05/17 07:30 05/05/17 07:59 04/06/17 08:02 325 MG Furosemide (Lasix Tab) 80 mg BID17 PO 04/05/17 09:00 05/05/17 08:59 04/06/17 08:03 80 MG Insulin Glargine (Lantus Solostar Pen) 15 units HS SC 04/04/17 23:30 05/04/17 23:29 04/05/17 20:49 15 UNITS Isosorbide Mononitrate (Imdur Ext Rel Tab) 90 mg QAM PO 04/05/17 09:00 05/05/17 08:59 04/06/17 08:01 90 MG Lidocaine (Lidoderm Patch 5%) 1 patch DAILY TD 04/05/17 09:00 05/05/17 08:59 04/06/17 08:03 1 PATCH Magnesium Hydroxide (Milk Of Magnesia Susp) 30 ml UD PRN PO 04/04/17 20:30 05/04/17 20:29 Metolazone (Zaroxolyn Tab) 2.5 mg DAILY PO 04/05/17 09:00 05/05/17 08:59 04/06/17 08:01 2.5 MG Pantoprazole Sodium (Protonix Tab) 40 mg QPM PO 04/04/17 21:00 05/04/17 20:59 04/05/17 19:59 40 MG Potassium Chloride (Klor-Con Tab) 40 meq DAILY PO 04/05/17 09:00 05/05/17 08:59 04/06/17 08:02 40 MEQ Prednisone (PredniSONE TAB) 5 mg QAM PO 04/05/17 09:00 05/05/17 08:59 04/06/17 08:00 5 MG Simethicone (Mylicon Chew Tab) 80 mg Q6H PRN PO 04/04/17 20:30 05/04/17 20:29 Simvastatin (Zocor Tab) 40 mg HS PO 04/04/17 21:00 05/04/17 20:59 04/05/17 19:59 40 MG Topiramate (Topamax Tab) 200 mg BID PO 04/04/17 21:00 05/04/17 20:59 04/06/17 08:00 200 MG Calcium/Vitamin D (Caltrate Plus Tab) 1 tab BIDM PO 04/05/17 07:30 05/05/17 07:59 04/06/17 08:01 1 TAB Artificial Tears (Artificial Tears) 2 drops QS OPB 04/05/17 00:00 05/05/17 00:00 04/06/17 08:03 2 DROPS Polyethylene (Miralax Powder Packet) 17 gm QAM PO 04/05/17 09:00 05/05/17 08:59 04/06/17 08:03 17 GM Ranolazine (Ranexa ER Tab) 1,000 mg BID PO 04/04/17 21:00 05/04/17 20:59 04/06/17 08:00 1,000 MG Miscellaneous (Remove Lidoderm Patch) 1 ea DAILY@21 N/A 04/04/17 21:00 05/04/17 20:59 04/05/17 19:55 1 EA Nitroglycerin (Nitrostat Tab) 0.4 mg PRN PRN SL 04/04/17 21:15 05/04/17 21:14 Morphine Sulfate (Roxanol Oral Soln) FOR PAIN 2.5-5 MG 2.5 MG ... Q4H PRN PO 04/04/17 23:30 04/18/17 23:29 04/06/17 06:27 5 MG Senna (Senokot Syrup) 17.6 mg QPM PO 04/05/17 21:00 05/05/17 20:59 04/05/17 20:00 17.6 MG Menthol (Nice [place]) 1 anson PRN PRN PO 04/06/17 08:30 05/06/17 08:29 Potassium Chloride 40 meq/ Sodium Chloride 1,020 ml @ 125 mls/hr Q8H10M IV 04/06/17 12:30 05/06/17 12:29 04/06/17 12:26 125 MLS/HR Potassium Chloride 10 meq/ Prmx 100 ml @ 100 mls/hr Q1H IV 04/06/17 12:30 04/06/17 16:29 04/06/17 15:44 100 MLS/HR Oxycodone/ Acetaminophen (Percocet 5-325mg Tab) 1 tab Q4H PRN PO 04/06/17 14:15 04/20/17 14:14 Physical Exam Date Time Temp Pulse Resp B/P (MAP) Pulse Ox O2 Delivery O2 Flow Rate FiO2 04/06/17 15:26 37.0 78 20 107/56 (73) 93 Room Air 04/06/17 12:00 Room Air 04/06/17 10:34 37.0 83 16 108/68 (81) 91 Room Air 04/06/17 08:10 92 Room Air 04/06/17 07:08 37.1 77 15 143/75 (97) 92 Room Air 04/06/17 04:00 Room Air 04/06/17 03:15 37.0 79 18 142/60 (87) 95 Room Air 04/05/17 23:59 Room Air 04/05/17 22:50 37.2 84 18 132/77 (95) 94 Room Air 04/05/17 20:13 36.9 78 18 119/70 (86) 92 Room Air 04/05/17 20:00 Room Air General Appearance: no apparent distress, + obese ENT: hearing grossly normal Neck: supple, no JVD Respiratory: no respiratory distress, no accessory muscle use, + decreased breath sounds Cardiovascular: regular rate, rhythm, + normal peripheral pulses Abdomen: normal bowel sounds, non tender, soft Neurologic/Psychiatric: alert, normal mood/affect (somewhat flat), oriented x 3 (but forgetful) Laboratory Results Last 24 Hours Test 04/05/17 16:17 04/05/17 20:35 04/06/17 06:27 04/06/17 10:21 Bedside Glucose 210 mg/dl 180 mg/dl 174 mg/dl White Blood Count 9.80 K/uL Red Blood Count 4.15 M/uL Hemoglobin 10.9 g/dL Hematocrit 34.3 % Mean Corpuscular Volume 82.7 fL Mean Corpuscular Hemoglobin 26.3 pg Mean Corpuscular Hemoglobin Concent 31.8 g/dl RDW Standard Deviation 61.2 fL RDW Coefficient of Variation 20.2 % Platelet Count 331 K/uL Mean Platelet Volume 8.6 fL Sodium Level 126 mmol/L Potassium Level 2.3 mmol/L Chloride Level 81 mmol/L Carbon Dioxide Level 38 mmol/L Anion Gap 7.0 mmol/L Blood Urea Nitrogen 28 mg/dl Creatinine 1.90 mg/dl Est Creatinine Clear Calc Drug Dose 23.1 ml/min Estimated GFR () 28.2 Estimated GFR (Non- 24.3 BUN/Creatinine Ratio 14.7 Random Glucose 163 mg/dl Calcium Level 9.9 mg/dl Magnesium Level 2.6 mg/dl Test 04/06/17 11:24 04/06/17 16:00 Bedside Glucose 189 mg/dl Assessment & Plan Problem list: Pain, back Mild cognitive impairment- reported by nursing staff and patient Bilateral rib fractures T6-T7 fractures Recurrent falls Hypokalemia LITA on CKD Atypical chest pain- resolved Goals of care (Z51.5) Palliative care recs: -Patient's goal is to do PT/OT at [facility]. -Has a living will in place, daughter Skylar Pearson would make decisions for her if she was unable. -Patient states when she is end-stage and no hope of improvement/recovery, she would just want to be made comfortable and stay out of hospital. She does not feel she is there yet and currently would be okay with coming back to the hospital for treatment. She would want to avoid ICU/aggressive measures. -Confirmed DNR status. -Would discontinue percocet. Consider adding MS Contin extended release 10mg PO BID for extended pain control as this patient has chronic pain and normally takes Roxanol PRN at [facility]. -Continue zofran, could change to ODT. Thank you kindly for this consult. Please contact me with any further palliative care needs.
[2017-04-06 17:04] LABS: BUN/CREATININE RATIO 16.8 (10-20); CALCIUM 9.6 mg/dl (8.5-10.1); CREATININE 1.8 mg/dl (0.60-1.20); POTASSIUM 3.2 mmol/L (3.5-5.1)
[2017-04-06 19:04] VITALS: BP 116/63; PULSE 79; TEMP 36.8; O2SAT 94
[2017-04-06] MEDS: OXYCODONE/ACETAMINOPHEN 5-325 TAB PO PRN (19:55)
[2017-04-06] MEDS: COUGH DROP (SUGAR FREE) LOZ 24 LOZ/1 BOX PO PRN (19:55)
[2017-04-06] MEDS: SIMVASTATIN 40 MG TAB PO SCH (19:59)
[2017-04-06] MEDS: SENNA 17.6 MG/10 ML UDP PO SCH (19:59)
[2017-04-06] MEDS: PANTOprazole SOD 40 MG TAB PO SCH (19:59)
[2017-04-06] MEDS: INSULIN GLARGINE SOLOSTAR 100 UNITS/ML 3 ML PEN SC SCH (20:39)
[2017-04-07] VITALS (10 sets, daily range): BP systolic 94–125; BP diastolic 57–79; PULSE 72–82; TEMP 36.6–37.1; O2SAT 91–98
[2017-04-07] MEDS: POTASSIUM CHLORIDE INJ 40 MEQ in SODIUM CHLORIDE 0.9% 1000ML 1,000 ML IV SCH ×3 (04:25→19:33)
[2017-04-07] MEDS: HEPARIN SOD 5000 UNIT/0.5 ML CARP SQ SCH ×3 (05:07→21:22)
[2017-04-07 06:12] LABS: HEMATOCRIT 31.4 % (37-47); MEAN CELL VOLUME 82.8 fL (80-100); MEAN CORPUSCULAR HEMOGLOBIN 26.9 pg (25-34); MEAN CORPUSCULAR HGB CONC 32.5 g/dl (32-36); MEAN PLATELET VOLUME 8.8 fL (7.4-10.4); PLATELET COUNT 322 K/uL (130-400); RED BLOOD COUNT 3.79 M/uL (4.2-5.4); WHITE BLOOD COUNT 7.57 K/uL (4.8-10.8)
[2017-04-07 06:48] LABS: BUN/CREATININE RATIO 17.9 (10-20); CALCIUM 9.6 mg/dl (8.5-10.1); CREATININE 1.6 mg/dl (0.60-1.20); MAGNESIUM 2.7 mg/dl (1.8-2.4); POTASSIUM 2.8 mmol/L (3.5-5.1)
[2017-04-07] MEDS: INSULIN ASPART 100 UNITS/ML 3 ML PEN SC SCH ×4 (08:05→21:22)
[2017-04-07] MEDS: OXYCODONE/ACETAMINOPHEN 5-325 TAB PO PRN ×2 (08:06→23:42)
[2017-04-07] MEDS: FERROUS SULFATE 325 MG TAB PO SCH ×2 (08:06→16:52)
[2017-04-07] MEDS: ISOSORBIDE MONONITRATE 30 MG TABCR PO SCH (08:07)
[2017-04-07] MEDS: TOPIRAMATE 100 MG TAB PO SCH ×2 (08:07→21:18)
[2017-04-07] MEDS: POTASSIUM CHLORIDE 20 MEQ TABCR PO SCH ×2 (08:07→21:17)
[2017-04-07] MEDS: FUROSEMIDE 80 MG TAB PO SCH ×2 (08:08→16:52)
[2017-04-07] MEDS: CALCIUM 600MG + VIT D 400 IU TAB PO SCH ×2 (08:08→16:52)
[2017-04-07] MEDS: ESCITALOPRAM OXALATE 20 MG TAB PO SCH (08:08)
[2017-04-07] MEDS: DIPYRIDAMOLE/ASPIRIN CAP PO SCH ×2 (08:08→21:19)
[2017-04-07] MEDS: METOLAZONE 2.5 MG TAB PO SCH (08:08)
[2017-04-07] MEDS: LIDODERM (LIDOCAINE) PATCH 5% TD SCH (08:09)
[2017-04-07] MEDS: ARTIFICIAL TEARS OP SOLN OPB SCH ×6 (08:09→21:24)
[2017-04-07] MEDS: POLYETHYLENE (MIRALAX) 17 GM PACK PO SCH (08:09)
[2017-04-07] MEDS: DOCUSATE SODIUM 100 MG CAP PO SCH ×2 (08:09→21:19)
[2017-04-07] MEDS: RANOLAZINE 500 MG ER TAB PO SCH ×2 (08:09→21:16)
[2017-04-07] MEDS ORDERED: MCRK20 PO (15:43)
[2017-04-07] MEDS ORDERED: OXYC-57 PO (15:43)
[2017-04-07] MEDS ORDERED: NF656 PO (15:43)
--- NOTE | 2017-04-07 15:47 | Discharge Instructions ---
Discharge Instructions Date of Service Apr 07, 2017. Admission Reason for Admission: Chest Pain, Thoracic Spine Fx Discharge Discharge Diagnosis / Problem: Thoracic spine fracture Discharge Goals Goal(s): Decrease discomfort, Improve function, Increase independence, Improve disease control, Learn about illness, Diagnostic testing, Therapeutic intervention, Prevent Disease Progression Activity Recommendations Activity Limitations: per Instructions/Follow-up section . Instructions / Follow-Up Instructions / Follow-Up Patient to be discharged back to [facility] Please continue lidoderm patch to apply daily for pain Also can take percocet as directed every 4 hrs as needed for pain Please note increase in potassium dose (40 meq tablets twice a day) Please follow up with Dr Landis in 1-2 weeks Follow-up CAT scan of thoracic spine in approximately 1 week May begin transfers from bed to chair Current Hospital Diet Patient's current hospital diet: Diabetes Type 2 Diet, AHA Diet (Heart Healthy) Discharge Diet Recommended Diet: AHA Diet (Heart Healthy), Diabetes Type 2 Diet Pending Studies Studies pending at discharge: no Laboratory Results Hemoglobin A1c Test 04/05/17 03:30 Range/Units Estimated Average Glucose 174 mg/dl Hemoglobin A1c 7.7 H 4.5-5.6 % Lipid Panel Test 02/19/17 05:10 Range/Units Triglycerides Level 354 H 0-150 mg/dl Cholesterol Level 211 H 0-200 mg/dl HDL Cholesterol 44 mg/dl Cholesterol/HDL Ratio 4.8 LDL Cholesterol, Calculated 96 mg/dl Medical Emergencies . Who to Call and When: Medical Emergencies: If at any time you feel your situation is an emergency, please call 911 immediately. . Non-Emergent Contact Non-Emergency issues call your: Primary Care Provider Call Non-Emergent contact if: you have a fever, your pain is worsening . . "Provider Documentation" section prepared by Too Pelletier. . VTE Core Measure Inpt VTE Proph given/why not?: Unfractionated heparin SQ
--- NOTE | 2017-04-07 15:55 | Progress Note ---
Subjective Date of Service: Apr 07, 2017. Subjective Pt evaluation today including: conversation w/ patient, physical exam, chart review, lab review, review of studies, review of inpatient medication list Pain stable No acute events overnight Resting comfortably in bed Pain controlled Problem List Medical Problems: (1) Acute head injury Status: Acute (2) Back pain Status: Acute (3) Back pain Status: Acute (4) Blind right eye Status: Chronic (5) Bruising Status: Acute (6) CHF (congestive heart failure) Status: Acute (7) Compression fracture Status: Acute (8) Contusion of right shoulder Status: Acute (9) Depression Status: Chronic (10) Depression Status: Acute (11) Elevated serum creatinine Status: Acute (12) Fall Status: Acute (13) Fall Status: Acute (14) Fall Status: Acute (15) Fecal retention Status: Acute (16) Fracture of fifth metacarpal bone of right hand Status: Acute (17) Fracture of thoracic transverse process Status: Acute (18) Generalized weakness Status: Acute (19) Headache Status: Acute (20) Intractable back pain Status: Acute (21) Intractable back pain Status: Acute (22) Intractable back pain Status: Acute (23) Left sided chest pain Status: Acute (24) Lumbar compression fracture Status: Acute (25) Lumbar transverse process fracture Status: Acute (26) Mild dehydration Status: Acute (27) Multiple fractures of thoracic spine Status: Acute (28) Multiple fractures of thoracic spine Status: Acute (29) Multiple fractures of thoracic spine Status: Acute (30) Multiple rib fractures Status: Acute (31) Peripheral edema Status: Acute (32) Pleural effusion Status: Acute (33) Precordial chest pain Status: Acute (34) Right facial numbness Status: Acute (35) Right-sided chest wall pain Status: Acute (36) Suicide attempt by acetaminophen overdose Status: Acute (37) Tylenol overdose Status: Acute (38) Unstable angina Status: Acute (39) Urinary retention Status: Acute (40) Urinary retention Status: Acute Review of Systems Constitutional: No fever, No chills, No sweats, No weight loss ENT: No hearing loss, No unusual epistaxis, No nasal symptoms, No sore throat Respiratory: No cough, No sputum, No wheezing, No shortness of breath Cardiac: No chest pain, No orthopnea, No PND, No edema Abdomen: No pain, No nausea, No vomiting, No diarrhea, No constipation Musculoskeletal: No joint pain, No muscle pain, No swelling, No calf pain Female : No dysuria, No urinary frequency, No hematuria, No incontinence Neurologic: No memory loss, No paralysis, No weakness, No numbness/tingling Psychiatric: No depression symptoms, No anhedonism, No anxiety, No insomnia Skin: No rash, No itch, No new/changing skin lesions, No color change Objective Vital Signs Date Time Temp Pulse Resp B/P (MAP) Pulse Ox O2 Delivery O2 Flow Rate FiO2 04/07/17 12:00 Room Air 04/07/17 11:34 36.9 76 18 118/69 (85) 94 04/07/17 08:06 37.0 72 18 125/79 (94) 95 04/07/17 08:00 Room Air 04/07/17 04:00 Room Air 04/07/17 03:08 36.7 80 16 95/59 (71) 91 Room Air 04/07/17 00:06 37.1 78 21 99/57 (71) 92 Room Air 04/06/17 23:59 Room Air 04/06/17 20:00 Room Air 04/06/17 19:04 36.8 79 20 116/63 (80) 94 Room Air 04/06/17 16:00 Room Air Physical Exam General Appearance: WD/WN, no apparent distress Eyes: normal inspection, PERRL, EOMI, sclerae normal Neck: supple, no adenopathy, thyroid normal, no JVD Respiratory/Chest: chest non-tender, lungs clear, normal breath sounds, no respiratory distress Cardiovascular: regular rate, rhythm, no edema, no gallop, no JVD Abdomen: normal bowel sounds, non tender, soft, no organomegaly Extremities: normal range of motion, non-tender, normal inspection, no pedal edema Neurologic/Psychiatric: no motor/sensory deficits, alert, normal mood/affect, oriented x 3 Laboratory Results Last 24 Hours Test 04/06/17 16:07 04/06/17 16:21 04/06/17 20:09 04/07/17 05:37 Sodium Level 128 mmol/L 132 mmol/L Potassium Level 3.2 mmol/L 2.8 mmol/L Chloride Level 84 mmol/L 88 mmol/L Carbon Dioxide Level 34 mmol/L 37 mmol/L Anion Gap 10.0 mmol/L 7.0 mmol/L Blood Urea Nitrogen 30 mg/dl 29 mg/dl Creatinine 1.80 mg/dl 1.60 mg/dl Est Creatinine Clear Calc Drug Dose 24.4 ml/min 27.1 ml/min Estimated GFR () 30.1 34.7 Estimated GFR (Non- 25.9 29.9 BUN/Creatinine Ratio 16.8 17.9 Random Glucose 237 mg/dl 141 mg/dl Calcium Level 9.6 mg/dl 9.6 mg/dl Bedside Glucose 250 mg/dl 222 mg/dl White Blood Count 7.57 K/uL Red Blood Count 3.79 M/uL Hemoglobin 10.2 g/dL Hematocrit 31.4 % Mean Corpuscular Volume 82.8 fL Mean Corpuscular Hemoglobin 26.9 pg Mean Corpuscular Hemoglobin Concent 32.5 g/dl RDW Standard Deviation 61.8 fL RDW Coefficient of Variation 20.3 % Platelet Count 322 K/uL Mean Platelet Volume 8.8 fL Magnesium Level 2.7 mg/dl Test 04/07/17 06:44 04/07/17 11:19 04/07/17 15:38 Bedside Glucose 158 mg/dl 222 mg/dl 183 mg/dl Assessment and Plan 82 year old female on chronic prednisone with a history of paroxysmal a-fib, CAD , HTN, DM II, CKD stage III-IV, depression, and RA who presents with a fall and multiple bilateral rib fractures, and a possibly unstable T6-T7 fracture. Bilateral rib fractures/T6-T7 possibly unstable fracture/recurrent falls, known osteoporosis and chronic prednisone use--stable -Admit to telemetry. No acute events overnight. Pt in sinus rhythm with PACs, HR 70s-80s. -Pain controlled on lidoderm patch in addition to percocet 5/325 mg 1 tab PO q4h prn pain -Tylenol prn pain -Ortho spine consulted, appreciate recs: Unable to obtain MRI due to metal in her eye, can DC back to [facility] with repeat CT scan in 1 week and f/u with Dr Landis -Continue Fosamax, consider switching to Prolia outpatient -PT/OT evaluations completed Hypokalemia--ongoing -Potassium 2.8, mg normal -Cont KCl 40 mEq PO BID Atypical chest pain, CAD, HTN, HLD--chest pain resolved, ACS ruled out. -No events on tele -Troponin negative x 3 -EKG no ischemic changes -Continue Aggrenox BID, Ranexa 1000 mg PO BID, Imdur 90 mg PO qd, simvastatin 40 mg PO qd Diabetes mellitus type 2--HgbA1c on 04/05 was 7.7 -Lantus 15 units SC qpm -Insulin sliding scale -Check BSGs q ac and qhs LITA on CKD stage III-IV--baseline creatinine appears to be around 1.4-1.6, but had as been as low as 1.2 earlier in March 2017 -Creatinine 1.6 on 04/07 -IVF as above -Continue to monitor Depression -Continue Lexapro 20 mg PO qd Rheumatoid arthritis, peripheral neuropathy, chronic pain--stable -Continue prednisone 5 mg daily -Continue Topamax and by mouth morphine DVT prophylaxis -Heparin 5000 units SC q8h Dispo -[facility]
[2017-04-07] MEDS: SENNA 17.6 MG/10 ML UDP PO SCH (21:16)
[2017-04-07] MEDS: PANTOprazole SOD 40 MG TAB PO SCH (21:18)
[2017-04-07] MEDS: SIMVASTATIN 40 MG TAB PO SCH (21:18)
[2017-04-07] MEDS: INSULIN GLARGINE SOLOSTAR 100 UNITS/ML 3 ML PEN SC SCH (21:23)
[2017-04-07] MEDS ORDERED: NURSING VERBAL MED ORDER ONE ×2 (23:00)
[2017-04-07] MEDS ORDERED: COUGH DROP (SUGAR FREE) LOZ 24 LOZ/1 BOX PO PRN (23:00)
[2017-04-07] MEDS: COUGH DROP (SUGAR FREE) LOZ 24 LOZ/1 BOX PO PRN (23:03)
[2017-04-08] VITALS: O2SAT 94
[2017-04-08 04:10] VITALS: BP 132/72; PULSE 70; TEMP 36.8; O2SAT 95
[2017-04-08] MEDS: POTASSIUM CHLORIDE INJ 40 MEQ in SODIUM CHLORIDE 0.9% 1000ML 1,000 ML IV SCH (05:51)
[2017-04-08] MEDS: HEPARIN SOD 5000 UNIT/0.5 ML CARP SQ SCH (05:54)
[2017-04-08 07:29] VITALS: BP 156/78; PULSE 69; TEMP 37.2; O2SAT 95
[2017-04-08 07:42] LABS: BUN/CREATININE RATIO 18.9 (10-20); CALCIUM 9.9 mg/dl (8.5-10.1); CREATININE 1.5 mg/dl (0.60-1.20); MAGNESIUM 2.5 mg/dl (1.8-2.4); POTASSIUM 3.4 mmol/L (3.5-5.1)
[2017-04-08] MEDS: DOCUSATE SODIUM 100 MG CAP PO SCH (08:43)
[2017-04-08] MEDS: FERROUS SULFATE 325 MG TAB PO SCH (08:43)
[2017-04-08] MEDS: FUROSEMIDE 80 MG TAB PO SCH (08:44)
[2017-04-08] MEDS: DIPYRIDAMOLE/ASPIRIN CAP PO SCH (08:44)
[2017-04-08] MEDS: ISOSORBIDE MONONITRATE 30 MG TABCR PO SCH (08:44)
[2017-04-08] MEDS: TOPIRAMATE 100 MG TAB PO SCH (08:44)
[2017-04-08 08:45] VITALS: O2SAT 95
[2017-04-08] MEDS: POTASSIUM CHLORIDE 20 MEQ TABCR PO SCH (08:45)
[2017-04-08] MEDS: RANOLAZINE 500 MG ER TAB PO SCH (08:45)
[2017-04-08] MEDS: ESCITALOPRAM OXALATE 20 MG TAB PO SCH (08:45)
[2017-04-08] MEDS: CALCIUM 600MG + VIT D 400 IU TAB PO SCH (08:46)
[2017-04-08] MEDS: POLYETHYLENE (MIRALAX) 17 GM PACK PO SCH (08:46)
[2017-04-08] MEDS: METOLAZONE 2.5 MG TAB PO SCH (08:46)
[2017-04-08] MEDS: ARTIFICIAL TEARS OP SOLN OPB SCH ×2 (08:55)
[2017-04-08] MEDS: INSULIN ASPART 100 UNITS/ML 3 ML PEN SC SCH ×2 (08:55→12:40)
[2017-04-08] MEDS ORDERED: MoRPHine SULFATE CR 15 MG TAB (MS CONTIN) PO SCH (10:00)
[2017-04-08] MEDS: LIDODERM (LIDOCAINE) PATCH 5% TD SCH (10:45)
[2017-04-08] MEDS ORDERED: MRP15 PO (11:07)
--- NOTE | 2017-04-08 11:22 | Discharge Instructions ---
Discharge Instructions Date of Service Apr 08, 2017. Admission Reason for Admission: Chest Pain, Thoracic Spine Fx Discharge Discharge Diagnosis / Problem: Thoracic spine fracture, rib fractures Discharge Goals Goal(s): Decrease discomfort, Diagnostic testing, Therapeutic intervention Activity Recommendations Activity Level: Assistance Required Therapies: Physical Therapy, Occupational Therapy . Additional Information Patient informed of condition: Yes Advance Directives: Yes DNR: Yes Level of Care: Skilled (will need rehab services) Communicable Disease: No Prognosis: Stable [place] Catheter: Yes Instructions / Follow-Up Instructions / Follow-Up Patient was admitted to the hospital presenting with multiple fractures following a fall. Orthopedic spine surgery was consulted regarding the patient' s T6-T7 fracture that is possibly unstable. The patient was unable to undergo an MRI due to metal in the body. Orthopedics therefore recommends a CT scan of the thoracic spine in 1 week and will follow up with them as an outpatient. The patient does not seem to be a good candidate for a brace. The patient states that her pain is improving with oral pain medications, and she is now stable for discharge back to [facility]. Medications: *Patient's prn Roxanol discontinued. Will discontinue Percocet received as inpatient. Start MS Contin 15 mg PO BID. Continue lidoderm patch daily. *Potassium supplement increased to 40 mEq PO BID. *Continue other home medications as prescribed. Follow up: *Follow up with primary care provider in 1 week regarding hospital stay and changes to medications. *Follow up with Dr. Landis in 1-[address] thoracic spine in 1 week. Please seek medical attention if the patient experiences fevers, chills, sweats , dizziness/lightheadedness, loss of consciousness, chest pain, shortness of breath, nausea, vomiting, numbness or tingling. Current Hospital Diet Patient's current hospital diet: Diabetes Type 2 Diet, AHA Diet (Heart Healthy) Discharge Diet Recommended Diet: AHA Diet (Heart Healthy), Diabetes Type 2 Diet Pending Studies Studies pending at discharge: no Physician Orders On Transfer Special Precautions: Fall precautions Vital Signs: Routine Additional Orders: Follow up CT scan of thoracic spine in 1 week Follow up with Dr. Landis in 1-2 weeks Laboratory Results Hemoglobin A1c Test 04/05/17 03:30 Range/Units Estimated Average Glucose 174 mg/dl Hemoglobin A1c 7.7 H 4.5-5.6 % Lipid Panel Test 02/19/17 05:10 Range/Units Triglycerides Level 354 H 0-150 mg/dl Cholesterol Level 211 H 0-200 mg/dl HDL Cholesterol 44 mg/dl Cholesterol/HDL Ratio 4.8 LDL Cholesterol, Calculated 96 mg/dl Medical Emergencies . Who to Call and When: Medical Emergencies: If at any time you feel your situation is an emergency, please call 911 immediately. . Non-Emergent Contact Non-Emergency issues call your: Primary Care Provider, Surgeon Call Non-Emergent contact if: you have a fever, your pain is not controlled, your pain is worsening, your pain is unusual for you, your pain is concerning you, you have any medication questions . Past History Medical & Surgical History: (1) Thoracic spine fracture (2) Multiple rib fractures . "Provider Documentation" section prepared by Mikaela Rodriguez. . Core Measure Problem Core Measures: None [place] Drug Monitoring Program Search Results: patient reviewed within database
[2017-04-08 11:44] VITALS: BP 156/78; PULSE 69; TEMP 37.2; O2SAT 95
[2017-04-08 11:55] VITALS: BP 107/61; PULSE 72; TEMP 37; O2SAT 95
--- NOTE | 2017-04-08 12:15 | Discharge Summary ---
Discharge Summary Date of Service Apr 08, 2017. Discharge Summary Admission Date: Apr 04, 2017 at 21:07 Discharge Date: Apr 08, 2017 Discharge Disposition: [facility] (with [facility]hab services) Principal Diagnosis: Thoracic spine fracture, multiple rib fractures Problems/Secondary Diagnoses: (1) Blind right eye Status: Chronic (2) Depression Status: Chronic Immunizations: Have You Had Influenza Vaccine: No History of Tetanus Vaccine?: utd History of Pneumococcal: Yes Pneumococcal Date: Sep 24, 2010 History of Hepatitis B Vaccine: No Consultations: Orthopedic spine surgery--Dr. Landis Medication Reconciliation New Medications: Morphine Sulfate (Morphine Sulfate) 15 Mg Tab 1 TAB PO BID for 30 Days, #60 TAB Potassium Chloride (Klor-Con M20) 20 Meq Tabcr 40 MEQ PO BID, #60 TABS Continued Medications: Acetaminophen (Tylenol) 325 Mg Tab 650 MG PO Q6 PRN for Pain DO NOT EXCEED 3GM APAP/24HR Acetaminophen (Tylenol) 325 Mg Tab 650 MG PO Q6 PRN for TEMP>100 NOT TO EXCEED 3GM APAP/24HR Albuterol Hfa (Ventolin Hfa) 200 Puffs/29528 Mcg Aers 1-2 PUFFS INH Q4 PRN for Shortness of Breath, #1 INHALER Alendronate Sodium (Fosamax) 70 Mg Tab 70 MG PO WK, #4 TAKE ON SATURDAYS. TAKE 30 MIN PRIOR TO FOOD/OTHER MEDS. REMAIN UPRIGHT FOR AT LEAST 30 MINS. Bisacodyl (Bisac-Evac) 10 Mg Sup 1 SUPP LA UD PRN for NO BM X 3 DAYS Calcium Carbonate-Vitamin D (Oscal 500/200 D-3) 1 Tab Tab 1 TAB PO BIDM Diphenhydramine Hcl (Benadryl Allergy) 25 Mg Cap 25 MG PO HS Dipyridamole/Aspirin (Aggrenox 25-200 mg) 1 Cap Cap 1 CAP PO BID, 5 Refills Docusate Sodium (Colace) 100 Mg Cap 100 MG PO BID Escitalopram Oxalate (Lexapro) 20 Mg Tab 20 MG PO DAILY, TAB Ferrous Sulfate (Ferrous Sulfate) 325 Mg Tab 325 MG PO BIDM for 30 Days, #30 TAB Furosemide (Lasix) 80 Mg Tab 80 MG PO BID, TAB Jmeinvvy-Mztasyzmvika-Nzxhgzqd (Artificial Tears) 1 Donavan Donavan 2 DROPS OPB QS Insulin Glargine (Lantus Solostar) 100 Unit/Ml Inj 15 UNITS SC HS Isosorbide Mononitrate (Isosorbide Mononitrate ER) 30 Mg Tabcr 90 MG PO QAM 3 TABLET DOSE Lidocaine (Lidoderm Patch 5%) 1 Ea Tdsy 1 PATCH PO ONAMOFFPM, #30 PATCH (This prescription has been renewed) Magnesium Hydroxide (Milk Of Magnesia) 30 Ml Susp 30 ML PO UD PRN for NO BM X 3 DAYS, ML Metolazone (Zaroxolyn) 2.5 Mg Tab 2.5 MG PO MWF, TAB Pantoprazole (Protonix) 40 Mg Tab 40 MG PO QPM Polyethylene Glycol 3350 (Miralax) 1 Pow Pow 17 GM PO DAILY Prednisone (Prednisone) 5 Mg Tab 5 MG PO QAM Ranolazine (Ranexa) 1,000 Mg Tab 1000 MG PO BID, 3 Refills Simethicone (Mi-Acid Gas Relief) 80 Mg Chew 80 MG PO Q6H PRN for Bloating, #30 TAB Simvastatin (Zocor) 40 Mg Tab 40 MG PO HS, TAB Sodium Phosphate/Biphosphate (Fleet Enema) Rakel 1 EA LA UD PRN for NO BM X 3 DAYS, BTL Topiramate (Topamax) 200 Mg Tab 200 MG PO BID, TAB Discontinued Medications: Morphine Sulfate (Morphine Sulfate) 20 Mg/1 Ml Soln 2.5 MG PO Q4 PRN for Moderate Pain Morphine Sulfate (Morphine Sulfate) 20 Mg/1 Ml Soln 5 MG PO Q4 PRN for Severe Pain Potassium Chloride Microencaps (Potassium Chloride Er) 20 Meq Tab 2 TAB PO DAILY, 3 Refills Referrals At Discharge Follow up Referrals: Orthopedics Referral - Within 1-2 Weeks with Lucian Landis D.O. Discharge Exam Patient reports feeling well and states that her back pain is better. When rating her pain, she states that she has a 9/10 aching pain, but she pain ratings have not been very reliable throughout this stay. She appears comfortable and does not appear to be in any distress. She complains of some mild shortness of breath and a dry, non-productive cough that is improved with cough drops. The patient denies fevers, chills, sweats, chest pain, palpitations, claudication, cough, wheezing, nausea, vomiting, abdominal pain, dysuria, hematuria, urinary retention, paralysis, weakness, numbness and tingling. Review of Systems: Constitutional: No fever, No chills, No sweats Eyes: No worsening of vision, No eye pain, No diplopia ENT: No hearing loss, No sore throat, No trouble swallowing Respiratory: + cough, + shortness of breath, No sputum, No wheezing Cardiovascular: No chest pain, No claudication, No palpitations Abdomen: No pain, No nausea, No vomiting Musculoskeletal: + joint pain (back pain), No muscle pain, No calf pain Genitourinary - Female: No dysuria, No urinary retention, No hematuria Neurologic: No paralysis, No weakness, No numbness/tingling Integumentary: No rash, No itch, No color change Physical Exam: General Appearance: WD/WN, no apparent distress, + obese Eyes: normal inspection, PERRL, + pertinent finding (blind in right eye) ENT: normal ENT inspection, hearing grossly normal, pharynx normal Neck: supple, no JVD, trachea midline Respiratory/Chest: lungs clear, normal breath sounds, no respiratory distress Cardiovascular: regular rate, rhythm, no gallop, no murmur Abdomen / GI: normal bowel sounds, non tender, soft Extremities: normal inspection, no calf tenderness, no pedal edema Neurologic/Psychiatric: alert, normal mood/affect, oriented x 3 Skin: normal color, warm/dry, no rash Hospital Course 82 year old female on chronic prednisone with a history of paroxysmal a-fib, CAD , HTN, DM II, CKD stage III-IV, depression, and RA who presents with a fall and multiple bilateral rib fractures, and a possibly unstable T6-T7 fracture. Bilateral rib fractures/T6-T7 possibly unstable fracture/recurrent falls, known osteoporosis and chronic prednisone use--stable -Admit to telemetry. No acute events overnight. Pt in sinus rhythm with PACs, HR 70s-80s. Transferred to med/surg 04/07 -D/C Dilaudid. Pt somewhat difficult to rouse, will switch to PO meds -Percocet 5/325 mg 1 tab PO q4h prn pain. This was d/c'd prior to discharge and switched to MS Contin 15 mg PO BID per palliative care recs. D/c'd home Roxanol as well -Tylenol prn pain -Ortho spine consulted, appreciate recs: F/u CT thoracic spine in 1 week. Pt not a good candidate for brace. -Pt unable to do MRI due to metal in her eye -Continue Fosamax, consider switching to Prolia outpatient -PT/OT evaluate and treat. Return to SNF with rehab services. Hypokalemia--improving -Increased home KCl to 40 mEq PO BID -Potassium 3.4 on discharge Atypical chest pain, CAD, HTN, HLD--chest pain resolved, ACS ruled out. -No events on tele -Troponin negative x 3 -EKG no ischemic changes -Continue Aggrenox BID, Ranexa 1000 mg PO BID, Imdur 90 mg PO qd, simvastatin 40 mg PO qd Diabetes mellitus type 2--HgbA1c on 04/05 was 7.7 -Lantus 15 units SC qpm -Insulin sliding scale -Check BSGs q ac and qhs LITA on CKD stage III-IV--resolved -Baseline creatinine appears to be around 1.4-1.6, but had as been as low as 1.2 earlier in March 2017 -Creatinine up to 1.9 on 04/06 -IVF as above -Creatinine 1.5 on discharge, at baseline Depression -Continue Lexapro 20 mg PO qd Rheumatoid arthritis, peripheral neuropathy, chronic pain--stable -Continue prednisone 5 mg daily -Continue Topamax and by mouth morphine DVT prophylaxis -Heparin 5000 units SC q8h Dispo -[facility] with PT when medically stable Total Time Spent: Greater than 30 minutes This includes examination of the patient, discharge planning, medication reconciliation, and communication with other providers. Discharge Instructions Please refer to the electronic Patient Visit Report (Discharge Instructions) for additional information. Follow-Up F/u CT thoracic spine in 1 week F/u with Dr. Landis in 1-2 weeks Additional Copies To [facility]
[2017-04-11] MEDS ORDERED: ALENDRONATE SODIUM 70 MG TAB PO SCH (06:00)
[2017-04-19] MEDS ORDERED: KFL500 PO (15:04)
[2017-04-19] MEDS ORDERED: ASPEC81 PO (15:04)
[2017-04-19] MEDS ORDERED: DFL100 PO (15:04)
== END 2017-04-08 13:00 | DRG 543 ==
LOC: EDBD 15:47 → C.EDA 15:48 → CANRESERV 20:46 → ENRESERV 20:46 → C.2T 21:07 → EDBEDREQSVC 21:07 → EDBEDREQ 21:08 → ENRESERV 21:12 → C.4E 04-07 18:00
PROVIDERS: ADMIT Family Medicine; ATTEND Hospitalist
DX: M80.08XA Age-related osteoporosis with current pathological fracture, vertebra(e), initial encounter for fracture (principal); N18.4 Chronic kidney disease, stage 4 (severe); N17.9 Acute kidney failure, unspecified; M84.48XA Pathological fracture, other site, initial encounter for fracture; W05.0XXA Fall from non-moving wheelchair, initial encounter; Y92.129 Unspecified place in nursing home as the place of occurrence of the external cause; I48.0 Paroxysmal atrial fibrillation; Z86.73 Personal history of transient ischemic attack (TIA), and cerebral infarction without residual deficits; E87.6 Hypokalemia; F32.9 Major depressive disorder, single episode, unspecified; E11.21 Type 2 diabetes mellitus with diabetic nephropathy; Z95.1 Presence of aortocoronary bypass graft; K21.9 Gastro-esophageal reflux disease without esophagitis; I25.10 Atherosclerotic heart disease of native coronary artery without angina pectoris; I73.9 Peripheral vascular disease, unspecified; M06.9 Rheumatoid arthritis, unspecified; H54.41 Blindness, right eye, normal vision left eye; Z79.52 Long term (current) use of systemic steroids; R07.89 Other chest pain; R51 Headache; I50.9 Heart failure, unspecified

== ENCOUNTER 2017-04-14 12:23 | Inpatient (IN) | payer OTHER ==
[~2017-04-14] VITALS: Ht 165.1 cm; Wt 77.1 kg
[~2017-04-14 12:23] MED LIST changes: -ASPEC81 PO; -DFL100 PO; -KFL500 PO
[2017-04-14] MEDS ORDERED: POTASSIUM CHLORIDE 10 MEQ TABCR PO STA (12:34)
[2017-04-14] MEDS ORDERED: POTASSIUM CHLR 20 MEQ / WTR 20 MEQ in PREMIXED WATER 100 ML IV STA (12:34)
[2017-04-14 12:57] LABS: HEMATOCRIT 38.6 % (37-47); MEAN CELL VOLUME 83.4 fL (80-100); MEAN CORPUSCULAR HEMOGLOBIN 27.9 pg (25-34); MEAN CORPUSCULAR HGB CONC 33.4 g/dl (32-36); PLATELET COUNT 496 K/uL (130-400); RED BLOOD COUNT 4.63 M/uL (4.2-5.4); WHITE BLOOD COUNT 14.21 K/uL (4.8-10.8)
[2017-04-14] MEDS ORDERED: POTASSIUM CHLR 10MEQ / WTR IV SCH (13:00)
[2017-04-14 13:19] LABS: ANISOCYTOSIS PRESENT; BASO % 0.1 %; BASO ABS # 0.01 K/uL (0-0.2); COMPLETE YES; EOS % 0.2 %; IG% 0.9 %; LYMPH % 15.4 %; LYMPH ABS # 2.19 K/uL (1.2-3.4); MONO % 7.4 %
[2017-04-14 13:20] LABS: BUN/CREATININE RATIO 25.3 (10-20); CALCIUM 11.2 mg/dl (8.5-10.1); CREATININE 2.1 mg/dl (0.60-1.20); MAGNESIUM 3.4 mg/dl (1.8-2.4); POTASSIUM 2.8 mmol/L (3.5-5.1)
[2017-04-14 13:28] LABS: URINE APPEARANCE TURBID (CLEAR); URINE BILIRUBIN NEG (NEG); URINE COLOR YELLOW; URINE NITRITE NEG (NEG); URINE PH 7.5 (4.5-7.5); URINE SPECIFIC GRAVITY 1.014 (1.000-1.030); UROBILINOGEN NEG (NEG); ZZURINE CULT IF INDIC CATH YES
[2017-04-14 13:28] LABS: CKMB/CK RATIO 2.3 (0-3.0); PHOSPHORUS 2.4 mg/dl (2.5-4.9)
[2017-04-14] MEDS: POTASSIUM CHLORIDE 10 MEQ / 100ML WTR IV SCH ×2 (13:32→14:26)
--- NOTE | 2017-04-14 13:33 | DIAGNOSTIC IMAGING REPORT ---
CHEST ONE VIEW PORTABLE CLINICAL HISTORY: EVALUATE ALTERED MENTAL STATUS/WEAKNESS COMPARISON STUDY: 03/29/2017 FINDINGS: Mild stable cardiomegaly.. Chronic pleural reactive change left lateral costophrenic angle. Minimal atelectasis right base. Subtle increase in density right midlung possibly infiltrative in nature. IMPRESSION: 1. Poorly defined right midlung infiltrate. Chronic pleural reactive change left lateral costophrenic angle and to lesser extent right base. The above report was generated using voice recognition software. It may contain grammatical, syntax or spelling errors. Electronically signed by: Ashwin Handy M.D. 04/14/2017 1:31 PM Dictated Date/Time: 04/14/2017 1:29 PM
[2017-04-14 13:37] LABS: BETA-HYDROXYBUTYRATE 1.23 mg/dL (0.2-2.81)
[2017-04-14 13:41] LABS: MANUAL MICROSCOPIC REQUIRED? NO; REVIEW REQ? NO; SULFASALICYLIC ACID NEG (NEG)
[2017-04-14] MEDS ORDERED: LEVOFLOXACIN / D5W 750 MG in PREMIXED IN D5W 100 ML IV SCH (14:00)
[2017-04-14] MEDS ORDERED: ALUMINUM/MAGNESIUM/SIMETH (MAALOX MAX) 30 ML UDC PO PRN (14:00)
[2017-04-14] MEDS ORDERED: MAGNESIUM HYDROXIDE SUSP 30 ML UDC PO PRN (14:00)
[2017-04-14] MEDS ORDERED: POLYETHYLENE (MIRALAX) 17 GM PACK PO PRN (14:00)
[2017-04-14] MEDS ORDERED: ONDANSETRON INJ 2 MG/ML 2 ML VIAL IV PRN (14:00)
[2017-04-14 14:09] VITALS: O2SAT 94; BMI 29.2
--- NOTE | 2017-04-14 14:43 | History and Physical ---
History & Physical Date & Time of Service: Apr 14, 2017 at 14:27 Chief Complaint: Altered Mental Status Primary Care Physician: Anayeli Heath History of Present Illness Source: patient, hospital records This patient is an 82-year-old female that was sent emergency department today from [facility] for evaluation of altered mental status for reportedly the last 3 days. The history is limited secondary to the patient's mental state. She was reportedly diagnosed with a UTI and pneumonia 3 days ago. She was started on doxycycline with no improvement in her mental state. Baseline is unknown. The patient currently answers "no" to every question. 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 (5) CEREBROVASC DISEASE NOS Status: Chronic (6) Chest pain Status: Resolved (7) CHRONIC KIDNEY DISEASE, STAGE III Status: Chronic (8) CVA (cerebral infarction) Status: Resolved (9) CYSTIC KIDNEY DISEASE, UNSPECIFIED Status: Chronic (10) Depression Status: Chronic (11) Diabetes Status: Chronic (12) ESOPHAGEAL REFLUX Status: Chronic (13) Heart disease Status: Chronic (14) HTN (hypertension) Status: Chronic (15) HYPERPARATHYROIDISM, UNSPECIFIED Status: Chronic (16) Osteoarthritis Status: Chronic (17) PANCREATIC DISEASE NEC Status: Chronic (18) PERIPH VASCULAR DIS NOS Status: Chronic (19) R sided numbness Status: Chronic (20) Rheumatoid arthritis Status: Chronic (21) Right sided weakness Status: Chronic (22) VASCULAR DEMENTIA, UNCOMPLICATED Status: Chronic (23) VITAMIN D DEFICIENCY NOS Status: Chronic (24) Wrist fracture Status: Resolved Surgical Problems: (1) Hx of coronary artery bypass surgery Status: Resolved Family History Heart disease Myocardial infarction Social History Smoking Status: Never Smoker Smokeless Tobacco Use: No Alcohol Use: none Drug Use: none Marital Status: single Housing status: long-term Occupational Status: retired Immunizations History of Influenza Vaccine: No History of Tetanus Vaccine?: utd History of Pneumococcal: Yes Pneumococcal Date: Sep 24, 2010 History of Hepatitis B Vaccine: No Multi-Drug Resistant Organisms History of MDRO: No Allergies Coded Allergies: Iodinated Diagnostic Agents (Verified Allergy, Severe, ANAPHYLAXIS, ) R[place]bun (Verified Allergy, Severe, RASH, HIVES, TROUBLE BREATHING, 04/04/17 ) Promethazine (Verified Allergy, Severe, HIVES, TROUBLE BREATHING, 04/04/17) Bupropion (Verified Allergy, Intermediate, RASH, 04/04/17) Diazepam (Verified Allergy, Intermediate, Rash, 04/04/17) Reported by PT. Erythromycin (Verified Allergy, Intermediate, RASH, 04/04/17) Iodine (Verified Allergy, Intermediate, RASH, HIVES, 04/04/17) Penicillins (Verified Allergy, Intermediate, RASH, 04/04/17) Phenytoin (Verified Allergy, Unknown, PT UNSURE, 04/04/17) Tamsulosin (Verified Adverse Reaction, Intermediate, DIZZINESS, 04/04/17) Home Medications Scheduled Alendronate Sodium (Fosamax), 70 MG PO WK Calcium Carbonate-Vitamin D (Oscal 500/200 D-3), 1 TAB PO BIDM Dipyridamole/Aspirin (Aggrenox 25-200 mg), 1 CAP PO BID Docusate Sodium (Colace), 100 MG PO BID Escitalopram Oxalate (Lexapro), 20 MG PO DAILY Ferrous Sulfate (Ferrous Sulfate), 325 MG PO BIDM Furosemide (Lasix), 80 MG PO BID Bzfoaesb-Fifudrmgyjwc-Elhihgbu (Artificial Tears), 2 DROPS OPB QS Insulin Glargine (Lantus Solostar), 15 UNITS SC HS Isosorbide Mononitrate (Isosorbide Mononitrate ER), 90 MG PO QAM Lidocaine (Lidoderm Patch 5%), 1 PATCH PO ONAMOFFPM Metolazone (Zaroxolyn), 2.5 MG PO MWF Pantoprazole (Protonix), 40 MG PO QPM Polyethylene Glycol 3350 (Miralax), 17 GM PO DAILY Prednisone (Prednisone), 5 MG PO QAM Ranolazine (Ranexa), 1,000 MG PO BID Simvastatin (Zocor), 40 MG PO HS Topiramate (Topamax), 200 MG PO BID Scheduled PRN Acetaminophen (Tylenol), 650 MG PO Q6 PRN for Pain Acetaminophen (Tylenol), 650 MG PO Q6 PRN for TEMP>100 Albuterol Hfa (Ventolin Hfa), 1-2 PUFFS INH Q4 PRN for Shortness of Breath Bisacodyl (Bisac-Evac), 1 SUPP UT UD PRN for NO BM X 3 DAYS Magnesium Hydroxide (Milk Of Magnesia), 30 ML PO UD PRN for NO BM X 3 DAYS Simethicone (Mi-Acid Gas Relief), 80 MG PO Q6H PRN for Bloating Sodium Phosphate/Biphosphate (Fleet Enema), 1 EA UT UD PRN for NO BM X 3 DAYS Review of Systems Unable to perform secondary to mental state Physical Exam Vital Signs Date Time Temp Pulse Resp B/P (MAP) Pulse Ox O2 Delivery O2 Flow Rate FiO2 04/14/17 14:26 88 20 133/92 94 04/14/17 13:12 94 21 146/98 97 Room Air 04/14/17 12:51 93 04/14/17 12:35 37.8 95 20 152/100 94 Room Air General Appearance: no apparent distress Head: normocephalic, atraumatic ENT: + pertinent finding (white/yellow plaque noted on the tongue. Dry.) Neck: no JVD Respiratory/Chest: lungs clear Cardiovascular: regular rate, rhythm, no murmur Abdomen/GI: non tender, soft, + pertinent finding (bowel sounds hypoactive) Extremities/Musculoskelatal: no calf tenderness, no pedal edema Neurologic/Psych: + pertinent finding (alert and following some commands. Answers no to every question.) Skin: warm/dry Diagnostics Laboratory Results Results Past 24 Hours Test 04/14/17 12:30 04/14/17 13:05 Range/Units White Blood Count 14.21 4.8-10.8 K/uL Red Blood Count 4.63 4.2-5.4 M/uL Hemoglobin 12.9 12.0-16.0 g/dL Hematocrit 38.6 37-47 % Mean Corpuscular Volume 83.4 80-100 fL Mean Corpuscular Hemoglobin 27.9 25-34 pg Mean Corpuscular Hemoglobin Concent 33.4 32-36 g/dl Platelet Count 496 130-400 K/uL Mean Platelet Volume 9.0 7.4-10.4 fL Neutrophils (%) (Auto) 76.0 % Lymphocytes (%) (Auto) 15.4 % Monocytes (%) (Auto) 7.4 % Eosinophils (%) (Auto) 0.2 % Basophils (%) (Auto) 0.1 % Neutrophils # (Auto) 10.80 1.4-6.5 K/uL Lymphocytes # (Auto) 2.19 1.2-3.4 K/uL Monocytes # (Auto) 1.05 0.11-0.59 K/uL Eosinophils # (Auto) 0.03 0-0.5 K/uL Basophils # (Auto) 0.01 0-0.2 K/uL RDW Standard Deviation 61.6 36.4-46.3 fL RDW Coefficient of Variation 20.4 11.5-14.5 % Immature Granulocyte % (Auto) 0.9 % Immature Granulocyte # (Auto) 0.13 0.00-0.02 K/uL Anisocytosis PRESENT Sodium Level 131 136-145 mmol/L Potassium Level 2.8 3.5-5.1 mmol/L Chloride Level 82 98-107 mmol/L Carbon Dioxide Level 39 21-32 mmol/L Anion Gap 10.0 3-11 mmol/L Blood Urea Nitrogen 53 7-18 mg/dl Creatinine 2.10 0.60-1.20 mg/dl Est Creatinine Clear Calc Drug Dose 21.9 ml/min Estimated GFR () 25.0 Estimated GFR (Non- 21.5 BUN/Creatinine Ratio 25.3 10-20 Random Glucose 343 70-99 mg/dl Calcium Level 11.2 8.5-10.1 mg/dl Phosphorus Level 2.4 2.5-4.9 mg/dl Magnesium Level 3.4 1.8-2.4 mg/dl Total Creatine Kinase 40 26-192 U/L Creatine Kinase MB 0.9 0.5-3.6 ng/ml Creatine Kinase MB Ratio 2.3 0-3.0 Troponin I 1.810 0-0.045 ng/ml Beta-Hydroxybutyric Acid 1.23 0.2-2.81 mg/dL Urine Color YELLOW Urine Appearance TURBID CLEAR Urine pH 7.5 4.5-7.5 Urine Specific [place] 1.014 1.000-1.030 Urine Protein NEG NEG Urine Glucose (UA) NEG NEG Urine Ketones NEG NEG Urine Occult Blood 1+ NEG Urine Nitrite NEG NEG Urine Bilirubin NEG NEG Urine Urobilinogen NEG NEG Urine Leukocyte Esterase LARGE NEG Urine WBC (Auto) >30 0-5 /hpf Urine RBC (Auto) 5-10 0-4 /hpf Urine Hyaline Casts (Auto) 5-10 0-5 /lpf Urine Epithelial Cells (Auto) 5-10 0-5 /lpf Urine Bacteria (Auto) 4+ NEG Microbiology Results 04/14/17 Blood Culture, Melissa Batch Pending 04/14/17 Blood Culture, Received Pending 04/14/17 Urine Culture, Received Pending Diagnostic Radiology CHEST ONE VIEW PORTABLE CLINICAL HISTORY: EVALUATE ALTERED MENTAL STATUS/WEAKNESS COMPARISON STUDY: 03/29/2017 FINDINGS: Mild stable cardiomegaly.. Chronic pleural reactive change left lateral costophrenic angle. Minimal atelectasis right base. Subtle increase in density right midlung possibly infiltrative in nature. IMPRESSION: 1. Poorly defined right midlung infiltrate. Chronic pleural reactive change left lateral costophrenic angle and to lesser extent right base. EKG Sinus rhythm 89 bpm No significant change when compared to prior EKG Impression Assessment and Plan 82-year-old female with a history of multiple medical problems presented to the emergency department with altered mental status. Upon review of records, the patient is growing gram-positive bacilli from a urine that was done on 04/12. She was diagnosed with a UTI and pneumonia, which is being treated with doxycycline. She has had no improvement. She is tachycardic and febrile. Metabolic encephalopathy/sepsis probably secondary to UTI and pneumonia -Admit to telemetry -Broad-spectrum antibiotic coverage with vancomycin, Levaquin and Zosyn renally dosed -Repeat lactic acid -Follow CBC -Follow up blood cultures Acute on chronic renal failure likely secondary to dehydration -IVF -follow PRP -renally dose meds -Temporarily hold diuretics. Patient is typically on Lasix 80 mg twice daily, metalozone 2.5 mg daily Elevated troponin-likely secondary to acute illness, demand. No EKG changes noted -Monitor in telemetry -Cardiac enzymes 3 -Repeat EKG in the morning -Continue current cardiac meds: Aggrenox twice daily, Imdur 90 mg daily, simvastatin 40 mg daily Hypokalemia -replete carefully given kidney function -repeat PRP @ 1800 hrs Oral candidiasis -Diflucan 100 mg daily 7 days diabetes mellitus -follow BSGs AC, HS and with meals Continue Lantus 15 units at night -insulin sliding scale -check HgbA1C Spine fx from falls -continue lidoderm patch -PT/OT Depression -Continue Lexapro 20 mg daily Chronic steroid use for RA -increase prednisone from 5 mg to 10 mg daily for stress dosing DVT prophylaxis -Heparin 5000 u subQ BID -TEDS, SCDs CODE STATUS -LEVEL V DO NO RESUSCITATE Attending Addendum: I have physically seen and examined this patient, have directed the physician assistants medical activities, and agree with the H&P as noted above with the following exceptions: NONE The patient is awake, disoriented , lying in bed , answers "no" to every question, looks dehydrated, and in no acute distress. HEENT--PERRL, mucous membranes and oropharynx dry. Neck--supple, no JVD or bruits, thyroid normal, trachea midline, no adenopathy. Heart--regular rate and rhythm, no extra beats, no murmurs, rubs or gallops. Lungs--decreased breath sounds throughout, no respiratory distress, no accessory muscle use. Abdomen--decreased bowel sounds and soft, nontender and nondistended, no hernias or masses, no organomegaly. Extremities--no cyanosis, clubbing or edema. There are good distal pulses b/l. Dermatologic--normal skin turgor, normal color, warm and dry, no abnormal lymph nodes, no rash. Neurologic--cranial nerves II through XII grossly intact, motor and sensory examination normal. Rheumatologic--normal range of motion, nontender, muscles and joints. Psychiatric--flat affect Assessment and Plan: 1. Infectious disease/altered mental state/metabolic encephalopathy/pneumonia/ UTI--the patient will be placed on vancomycin IV, Zosyn IV and Levaquin IV. Follow urine cultures and blood cultures. 2. NSTEMI/elevated troponin/hypokalemia/renal insufficiency--replacing potassium both orally and IV, with serial laboratories.. 3. Hypercalcemia--likely secondary to hemoconcentration. We will place on IV fluids and rehydrate and recheck at that time. If still elevated, we will place on pamidronate. Check a 25-hydroxy vitamin D and PTH level. Level of Care Telemetry Advanced Directives Existing Advance Directive: Yes Existing Living Will: Yes Existing Power of Photographic [employer]inter: Yes Resuscitation Status DO NOT RESUSCITATE VTE Prophylaxis VTE Risk Assessment Done? Y/N: Yes Risk Level: Low Given or contraindicated: Unfractionated heparin SQ, T.E.D. Stockings, SCD's Social Service Consult Lives in Senior Living
--- NOTE | 2017-04-14 14:49 | EMERGENCY ROOM VISIT NOTE ---
History Report prepared by Ara: Spike Obrien Under the Supervision of: Dr. Rbeel Quiñonez D.O. First contact with patient: 12:30 Chief Complaint: ALTERED MENTAL STATUS Stated Complaint: ALTERED MENTAL STATUS History of Present Illness The patient is an 82 year old female who presents to the Emergency Room via EMS from [facility] with worsening altered mental status that started 3 days ago. Per the nursing staff, the patient has had increasing confusion, and was diagnosed with a UTI and pneumonia 3 days ago. The patient was started on Doxycycline. She has been unable to take any orals. The patient's baseline is unknown, per the nursing staff. Currently, the patient says that she "hurts everywhere". History limited secondary to patient's altered mental status. Source of History: patient, nursing staff History Limited By: AMS Onset: 3 days ago Position: other (global - altered mental status) Timing: worsening Note: Associated symptoms: Confusion. Patient says she hurts everywhere. Review of Systems ROS limited secondary to patient's altered mental status. 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 (9) CEREBRAL THROMBOSIS W CEREBRAL INFARCTION (10) CEREBROVASC DISEASE NOS (11) Chest pain (12) Chest pain radiating to arm (13) CHRONIC KIDNEY DISEASE, STAGE V (14) Chronic pain (15) CVA (cerebral infarction) (16) CYSTIC KIDNEY DISEASE, UNSPECIFIED (17) Depression (18) Depression (19) Diabetes (20) Discharge planning issues (21) Elevated troponin (22) ESOPHAGEAL REFLUX (23) Fracture of thoracic spine (24) Heart disease (25) HTN (hypertension) (26) Hyperlipidemia (27) HYPERPARATHYROIDISM, UNSPECIFIED (28) Hypoglycemia (29) Intentional self-harm (30) Leg weakness, bilateral (31) Leukocytosis (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 (33) Osteoarthritis (34) PANCREATIC DISEASE NEC (35) Past Psychotropic Medications (36) PERIPH VASCULAR DIS NOS (37) Precordial chest pain (38) R sided numbness (39) Rheumatoid arthritis (40) Right sided weakness (41) Sepsis (42) Suicide attempt by acetaminophen overdose (43) Thoracic spine fracture (44) TIA (transient ischemic attack) (45) UTI (urinary tract infection) (46) VASCULAR DEMENTIA, UNCOMPLICATED (47) VERTIGO (48) VITAMIN D DEFICIENCY NOS (49) Wrist fracture Surgical Problems: (1) Hx of coronary artery bypass surgery Family History Heart disease Myocardial infarction Social History Smoking Status: Former Smoker Alcohol Use: none Drug Use: none Marital Status: single Housing Status: lives alone Occupation Status: retired Current/Historical Medications Scheduled Alendronate Sodium (Fosamax), 70 MG PO WK Calcium Carbonate-Vitamin D (Oscal 500/200 D-3), 1 TAB PO BIDM Dipyridamole/Aspirin (Aggrenox 25-200 mg), 1 CAP PO BID Docusate Sodium (Colace), 100 MG PO BID Escitalopram Oxalate (Lexapro), 20 MG PO DAILY Ferrous Sulfate (Ferrous Sulfate), 325 MG PO BIDM Furosemide (Lasix), 80 MG PO BID Jdbbecdq-Paxsikjhzytt-Pvbrdyqd (Artificial Tears), 2 DROPS OPB QS Insulin Glargine (Lantus Solostar), 15 UNITS SC HS Isosorbide Mononitrate (Isosorbide Mononitrate ER), 90 MG PO QAM Lidocaine (Lidoderm Patch 5%), 1 PATCH PO ONAMOFFPM Metolazone (Zaroxolyn), 2.5 MG PO MWF Pantoprazole (Protonix), 40 MG PO QPM Polyethylene Glycol 3350 (Miralax), 17 GM PO DAILY Prednisone (Prednisone), 5 MG PO QAM Ranolazine (Ranexa), 1,000 MG PO BID Simvastatin (Zocor), 40 MG PO HS Topiramate (Topamax), 200 MG PO BID Scheduled PRN Acetaminophen (Tylenol), 650 MG PO Q6 PRN for Pain Acetaminophen (Tylenol), 650 MG PO Q6 PRN for TEMP>100 Albuterol Hfa (Ventolin Hfa), 1-2 PUFFS INH Q4 PRN for Shortness of Breath Bisacodyl (Bisac-Evac), 1 SUPP HI UD PRN for NO BM X 3 DAYS Magnesium Hydroxide (Milk Of Magnesia), 30 ML PO UD PRN for NO BM X 3 DAYS Simethicone (Mi-Acid Gas Relief), 80 MG PO Q6H PRN for Bloating Sodium Phosphate/Biphosphate (Fleet Enema), 1 EA HI UD PRN for NO BM X 3 DAYS Allergies Coded Allergies: Iodinated Diagnostic Agents (Verified Allergy, Severe, ANAPHYLAXIS, ) [place] (Verified Allergy, Severe, RASH, HIVES, TROUBLE BREATHING, 04/04/17 ) Promethazine (Verified Allergy, Severe, HIVES, TROUBLE BREATHING, 04/04/17) Bupropion (Verified Allergy, Intermediate, RASH, 04/04/17) Diazepam (Verified Allergy, Intermediate, Rash, 04/04/17) Reported by PT. Erythromycin (Verified Allergy, Intermediate, RASH, 04/04/17) Iodine (Verified Allergy, Intermediate, RASH, HIVES, 04/04/17) Penicillins (Verified Allergy, Intermediate, RASH, 04/04/17) Phenytoin (Verified Allergy, Unknown, PT UNSURE, 04/04/17) Tamsulosin (Verified Adverse Reaction, Intermediate, DIZZINESS, 04/04/17) Physical Exam Vital Signs Date Time Temp Pulse Resp B/P (MAP) Pulse Ox O2 Delivery O2 Flow Rate FiO2 04/14/17 14:26 88 20 133/92 94 04/14/17 13:12 94 21 146/98 97 Room Air 04/14/17 12:51 93 04/14/17 12:35 37.8 95 20 152/100 94 Room Air Physical Exam CONSTITUTIONAL/VITAL SIGNS: Reviewed / noted above. GENERAL: Non-toxic in appearance. INTEGUMENTARY: Warm, dry, and [place]. HEAD: Normocephalic. EYES: without scleral icterus or trauma. ENT/OROPHARYNX: clear and moist. LYMPHADENOPATHY/NECK: Is supple without lymphadenopathy or meningismus. RESPIRATORY: Lungs clear and equal. CARDIOVASCULAR: Regular rate and rhythm. GI/ABDOMEN: Soft and nontender. No organomegaly or pulsatile mass. No rebound or guarding. Normal bowel sounds. EXTREMITIES: Warm and well perfused. BACK: No CVA tenderness. NEUROLOGICAL: Intact without focal deficits. PSYCHIATRIC: normal affect. MUSCULOSKELETAL: Normally developed with good muscle tone. Medical Decision & Procedures ER Provider Diagnostic Interpretation: X ray results and stated below per my interpretation and radiology interpretation. CHEST ONE VIEW PORTABLE CLINICAL HISTORY: EVALUATE ALTERED MENTAL STATUS/WEAKNESS COMPARISON STUDY: 03/29/2017 FINDINGS: Mild stable cardiomegaly.. Chronic pleural reactive change left lateral costophrenic angle. Minimal atelectasis right base. Subtle increase in density right midlung possibly infiltrative in nature. IMPRESSION: 1. Poorly defined right midlung infiltrate. Chronic pleural reactive change left lateral costophrenic angle and to lesser extent right base. The above report was generated using voice recognition software. It may contain grammatical, syntax or spelling errors. Electronically signed by: Ashwin Handy M.D. 04/14/2017 1:31 PM Laboratory Results 04/14/17 12:30 Red Blood Count 4.63, Mean Corpuscular Volume 83.4, Mean Corpuscular Hemoglobin 27.9, Mean Corpuscular Hemoglobin Concent 33.4, Mean Platelet Volume 9.0, Neutrophils (%) (Auto) 76.0, Lymphocytes (%) (Auto) 15.4, Monocytes (%) (Auto) 7.4, Eosinophils (%) (Auto) 0.2, Basophils (%) (Auto) 0.1, Neutrophils # (Auto) 10.80, Lymphocytes # (Auto) 2.19, Monocytes # (Auto) 1.05, Eosinophils # (Auto) 0.03, Basophils # (Auto) 0.01 04/14/17 12:30 Test 04/14/17 12:30 04/14/17 13:05 White Blood Count 14.21 K/uL (4.8-10.8) Red Blood Count 4.63 M/uL (4.2-5.4) Hemoglobin 12.9 g/dL (12.0-16.0) Hematocrit 38.6 % (37-47) Mean Corpuscular Volume 83.4 fL (80-100) Mean Corpuscular Hemoglobin 27.9 pg (25-34) Mean Corpuscular Hemoglobin Concent 33.4 g/dl (32-36) Platelet Count 496 K/uL (130-400) Mean Platelet Volume 9.0 fL (7.4-10.4) Neutrophils (%) (Auto) 76.0 % Lymphocytes (%) (Auto) 15.4 % Monocytes (%) (Auto) 7.4 % Eosinophils (%) (Auto) 0.2 % Basophils (%) (Auto) 0.1 % Neutrophils # (Auto) 10.80 K/uL (1.4-6.5) Lymphocytes # (Auto) 2.19 K/uL (1.2-3.4) Monocytes # (Auto) 1.05 K/uL (0.11-0.59) Eosinophils # (Auto) 0.03 K/uL (0-0.5) Basophils # (Auto) 0.01 K/uL (0-0.2) RDW Standard Deviation 61.6 fL (36.4-46.3) RDW Coefficient of Variation 20.4 % (11.5-14.5) Immature Granulocyte % (Auto) 0.9 % Immature Granulocyte # (Auto) 0.13 K/uL (0.00-0.02) Anisocytosis PRESENT Anion Gap 10.0 mmol/L (3-11) Est Creatinine Clear Calc Drug Dose 21.9 ml/min Estimated GFR () 25.0 Estimated GFR (Non- 21.5 BUN/Creatinine Ratio 25.3 (10-20) Calcium Level 11.2 mg/dl (8.5-10.1) Phosphorus Level 2.4 mg/dl (2.5-4.9) Magnesium Level 3.4 mg/dl (1.8-2.4) Total Creatine Kinase 40 U/L (26-192) Creatine Kinase MB 0.9 ng/ml (0.5-3.6) Creatine Kinase MB Ratio 2.3 (0-3.0) Troponin I 1.810 ng/ml (0-0.045) Beta-Hydroxybutyric Acid 1.23 mg/dL (0.2-2.81) Urine Color YELLOW Urine Appearance TURBID (CLEAR) Urine pH 7.5 (4.5-7.5) Urine Specific [place] 1.014 (1.000-1.030) Urine Protein NEG (NEG) Urine Glucose (UA) NEG (NEG) Urine Ketones NEG (NEG) Urine Occult Blood 1+ (NEG) Urine Nitrite NEG (NEG) Urine Bilirubin NEG (NEG) Urine Urobilinogen NEG (NEG) Urine Leukocyte Esterase LARGE (NEG) Urine WBC (Auto) >30 /hpf (0-5) Urine RBC (Auto) 5-10 /hpf (0-4) Urine Hyaline Casts (Auto) 5-10 /lpf (0-5) Urine Epithelial Cells (Auto) 5-10 /lpf (0-5) Urine Bacteria (Auto) 4+ (NEG) Laboratory results as stated above per my review. Medications Administered Medications (Trade) Dose Ordered Sig/Phil Route Start Time Stop Time Status Last Admin Dose Admin Potassium Chloride (Klor-Con M10) 40 meq NOW STAT PO 04/14/17 12:34 04/14/17 12:38 DC 04/14/17 13:09 40 MEQ Potassium Chloride 10 meq/ Prmx 100 ml @ 100 mls/hr Q1H IV 04/14/17 13:00 04/14/17 14:59 Cancel 04/14/17 13:20 100 MLS/HR Potassium Chloride (Kcl 10 Meq / Wtr) 10 meq Q1H IV 04/14/17 13:15 04/14/17 14:16 DC 04/14/17 14:26 10 MEQ ECG Indication: altered mental status Rate (beats per minute): 89 Rhythm: normal sinus Findings: no ectopy, other (no acute injury) ED Course 1231: Previous medical records were reviewed. The patient was evaluated in room B4B. A limited history and physical examination was performed. 1234: Ordered Klor-Con M10 40 meq PO. 1300: Ordered Potassium Chloride 10 meq/Prmx 100 ml @ 100 mls/hr IV. 1333: I reevaluated the patient and she is resting. The patient will be evaluated for further treatment. 1410: I discussed the patient with Dr. Lainez - [facility] hospitalist - he will evaluate the patient for further treatment. Medical Decision Differential includes acute coronary syndrome, myocardial infarction, CVA, TIA, anemia, infection, pneumonia, UTI, pyelonephritis, poor nutrition, dehydration, electrolyte disturbance,hypoglycemia. This is an 82-year-old female who presents to the ED from [facility]. The patient was found to be increasingly confused over the past couple of days. She is currently under treatment for UTI and pneumonia. She is taking doxycycline. The patient's potassium has been low for the past couple of days. It is been in the 2.1-2.3 range. The patient had blood work this morning and it was 2.3. Her BUN was 40 and the creatinine is 1.9. The patient is somewhat demented and is a poor historian. She does not have any focal weakness on exam. She is in no distress. An EKG shows normal sinus rhythm. White blood cell count was 14.2. The BUN is 53 and the creatinine is 2.1 today. Potassium was 2.8. Glucose is 343. Troponin was 1.81. A chest x-ray shows some right-sided pneumonia. She is not hypoxic. Urine is concerning for infection. The patient was treated with by mouth potassium as well as IV potassium. I spoke with the hospitalist, who will see the patient for further inpatient evaluation and care. Medication Reconcilliation Current Medication List: was personally reviewed by me Blood Pressure Screening Patient's blood pressure: Elevated blood pressure Blood pressure disposition: Elevated BP felt to be situational Consults Time Called: 1400 Consulting Physician: Dr. Fatou TATUM hospitalist Returned Call: 1410 I discussed the patient with Dr. Fatou TATUM hospitalist - he will evaluate the patient for further treatment. Impression Primary Impression: Hypokalemia Additional Impressions: Elevated troponin Altered mental status UTI (urinary tract infection) Pneumonia Scribe Attestation The scribe's documentation has been prepared under my direction and personally reviewed by me in its entirety. I confirm that the note above accurately reflects all work, treatment, procedures, and medical decision making performed by me. Departure Information Dispostion Being Evaluated By Hospitalist Referrals MaverickAnayeli (PCP) Patient Instructions My [facility] Problem Qualifiers Additional Impressions: Altered mental status Altered mental status type: unspecified Qualified Codes: R41.82 - Altered mental status, unspecified
[2017-04-14 15:48] VITALS: BP 127/76; PULSE 84; TEMP 37.5; O2SAT 94
[2017-04-14] MEDS ORDERED: VANCOMYCIN CONSULT ACTIVE PRN (16:00)
[2017-04-14] MEDS ORDERED: PIPERACILL/TAZOBAC CONSULT ACTIVE PRN (16:15)
--- NOTE | 2017-04-14 16:22 | Pharmacy Progress Note ---
Pharmacy Abx Initial Consult Date of Service Apr 14, 2017. Pharmacy Dosing Scope Date of Consult: 04/14/17 Consultation requested by: Vane Bernstein PA-C Pharmacy is consulted to initiate Vancomycin and Zosyn IV dosing therapies for pneumonia and a complicated UTI in a patient in acute renal failure, order appropriate labs and adjust drug dose/frequency. Subjective The patient is a 82 year old female admitted on Apr 14, 2017 at 14:24. Objective Height (Feet): 5 Height (Inches): 5.00 Weight (Kilograms): 79.600 Vital Signs (Past 12Hrs) Vital Signs Past 12 Hours Date Time Temp Pulse Resp B/P (MAP) Pulse Ox O2 Delivery O2 Flow Rate FiO2 04/14/17 15:48 37.5 84 18 127/76 (93) 94 Room Air 04/14/17 14:49 90 20 118/89 93 04/14/17 14:26 88 20 133/92 94 04/14/17 14:09 94 Room Air 04/14/17 13:12 94 21 146/98 97 Room Air 04/14/17 12:51 93 04/14/17 12:35 37.8 95 20 152/100 94 Room Air Lab Results (24Hrs) Laboratory Tests (24 Hours) Test 04/14/17 12:30 04/14/17 15:30 White Blood Count 14.21 K/uL (4.8-10.8) H Red Blood Count 4.63 M/uL (4.2-5.4) Hemoglobin 12.9 g/dL (12.0-16.0) Hematocrit 38.6 % (37-47) Mean Corpuscular Volume 83.4 fL (80-100) Mean Corpuscular Hemoglobin 27.9 pg (25-34) Mean Corpuscular Hemoglobin Concent 33.4 g/dl (32-36) Platelet Count 496 K/uL (130-400) H Mean Platelet Volume 9.0 fL (7.4-10.4) Neutrophils (%) (Auto) 76.0 % Lymphocytes (%) (Auto) 15.4 % Monocytes (%) (Auto) 7.4 % Eosinophils (%) (Auto) 0.2 % Basophils (%) (Auto) 0.1 % Neutrophils # (Auto) 10.80 K/uL (1.4-6.5) H Lymphocytes # (Auto) 2.19 K/uL (1.2-3.4) Monocytes # (Auto) 1.05 K/uL (0.11-0.59) H Eosinophils # (Auto) 0.03 K/uL (0-0.5) Basophils # (Auto) 0.01 K/uL (0-0.2) Total Creatine Kinase 40 U/L (26-192) Micro Results Date/Time Source Procedure Growth Status 04/14/17 16:02 Blood Blood Culture Pending Melissa Batch 04/14/17 12:30 Blood Blood Culture Pending Received 04/14/17 00:00 Nasal MRSA DNA Surveillance Screen Pending Received 04/14/17 13:05 Urine,Catheterized Urine Culture Pending Received Risk Factors for Resistance * Resident in a shelter or extended-care facility * Hospitalization for 48 hours or more within the past 90 days * Antimicrobial use within the last 90 days: Doxycycline (unknown dose) Assessment & Plan Assessment 82 year old female: * in acute renal failure * CKD Stage III * recent hospital stay (04/04/17) * [facility] [place] [facility] resident * recent UTI- failed outpatient doxycycline therapy Plan Pharmacy has been consulted for treatment of pneumonia and complicated UTI Vancomycin IV * Loading dose: 2000 mg (25 mg/kg) * patient in acute renal failure; therefore, maintenance doses will be determined once renal function improves or stabilizes. * Goal trough level for pneumonia : 15 to 20 mcg/mL * Random level ordered for 04/15/17 with AM labs * A less than traditional dose and/or extended dosing interval have been selected due to likelihood of drug accumulation in patient with h/o CKD. Piperacillin/tazobactam * 3.375 g bolus administered over 30 minutes, then 3.375 g IV extended infusion every 8 hours for CrCl greater than 20 mL/min Pharmacy will continue to follow and will adjust dose/frequency as necessary. Thank you.
[2017-04-14] MEDS ORDERED: GLUCOSE 10 TABS/TUBE PO PRN (16:30)
[2017-04-14] MEDS ORDERED: VANCOMYCIN INJ 2,000 MG in SODIUM CHLORIDE 0.9% 500ML 500 ML IV SCH (16:30)
[2017-04-14] MEDS ORDERED: GLUCOSE 40% GEL 15 GM TUBE PO PRN (16:30)
[2017-04-14] MEDS ORDERED: DEXTROSE 50% 50 ML SYR IV PRN (16:30)
[2017-04-14] MEDS ORDERED: NSS + 20MEQ KCL 1000ML 1,000 ML IV SCH (16:30)
[2017-04-14] MEDS ORDERED: GLUCAGON FOR INJ 1 MG VIAL SQ PRN (16:30)
[2017-04-14] MEDS ORDERED: PIPERACILL/TAZOBAC IV 3.375 GM in DEXTROSE 5% 100ML 100 ML IV SCH (16:30)
[2017-04-14] MEDS: FLUCONAZOLE 100 MG TAB PO SCH (17:01)
[2017-04-14] MEDS: FERROUS SULFATE 325 MG TAB PO SCH (17:01)
[2017-04-14] MEDS: INSULIN ASPART 100 UNITS/ML 3 ML PEN SC SCH ×2 (17:51→20:54)
[2017-04-14 19:30] LABS: BUN/CREATININE RATIO 25.4 (10-20); CALCIUM 10.4 mg/dl (8.5-10.1); CREATININE 2.3 mg/dl (0.60-1.20)
[2017-04-14 19:42] LABS: BETA-HYDROXYBUTYRATE 1.22 mg/dL (0.2-2.81); CKMB/CK RATIO 2.4 (0-3.0)
[2017-04-14 20:00] VITALS: BP 136/82; PULSE 86; TEMP 37.3; O2SAT 94; Ht 165.1 cm; Wt 77.1 kg
[2017-04-14] MEDS ORDERED: LEVOFLOXACIN 750MG / D5W IV SCH (20:00)
[2017-04-14] MEDS: RANOLAZINE 500 MG ER TAB PO SCH (20:37)
[2017-04-14] MEDS: TOPIRAMATE 100 MG TAB PO SCH (20:38)
[2017-04-14] MEDS: DOCUSATE SODIUM 100 MG CAP PO SCH (20:38)
[2017-04-14] MEDS: SIMVASTATIN 40 MG TAB PO SCH (20:38)
[2017-04-14] MEDS: DIPYRIDAMOLE/ASPIRIN CAP PO SCH (20:38)
[2017-04-14] MEDS: PANTOprazole SOD 40 MG TAB PO SCH (20:38)
[2017-04-14] MEDS: HEPARIN SOD 5000 UNIT/0.5 ML CARP SQ SCH (20:52)
[2017-04-14] MEDS: INSULIN GLARGINE SOLOSTAR 100 UNITS/ML 3 ML PEN SC SCH (20:55)
[2017-04-14] MEDS ORDERED: VANCOMYCIN INJ 1,000 MG in SODIUM CHLORIDE 0.9% 250ML 250 ML IV SCH (21:00)
[2017-04-14 23:49] VITALS: BP 155/84; PULSE 82; TEMP 37.4; O2SAT 95
[2017-04-15] VITALS (7 sets, daily range): BP systolic 110–154; BP diastolic 70–82; PULSE 74–82; TEMP 36.6–37.2; O2SAT 90–97
[2017-04-15] MEDS: ACETAMINOPHEN 325 MG TAB PO PRN (00:18)
[2017-04-15] MEDS: PIPERACILL/TAZOBAC IV 3.375 GM in DEXTROSE 5% 100ML IV SCH ×4 (00:19→22:14)
[2017-04-15 04:21] LABS: BASO % 0.2 %; BASO ABS # 0.02 K/uL (0-0.2); EOS % 1.1 %; HEMATOCRIT 35.9 % (37-47); IG% 0.6 %; LYMPH % 17.3 %; LYMPH ABS # 2.18 K/uL (1.2-3.4); MEAN CELL VOLUME 83.5 fL (80-100); MEAN CORPUSCULAR HGB CONC 32.3 g/dl (32-36); MEAN PLATELET VOLUME 8.6 fL (7.4-10.4); MONO % 9.9 %; NEUT % 70.9 %; PLATELET COUNT 423 K/uL (130-400); WHITE BLOOD COUNT 12.62 K/uL (4.8-10.8)
[2017-04-15 04:42] LABS: BUN/CREATININE RATIO 29.8 (10-20); CALCIUM 10.1 mg/dl (8.5-10.1); MAGNESIUM 2.9 mg/dl (1.8-2.4); POTASSIUM 2.7 mmol/L (3.5-5.1)
[2017-04-15 04:57] LABS: CKMB/CK RATIO 5.4 (0-3.0)
[2017-04-15 05:00] LABS: ANISOCYTOSIS PRESENT; COMPLETE YES
[2017-04-15 05:30] LABS: HYPERSEGMENTED POLYS 1+
[2017-04-15] MEDS: ISOSORBIDE MONONITRATE 30 MG TABCR PO SCH (08:06)
[2017-04-15] MEDS: DOCUSATE SODIUM 100 MG CAP PO SCH ×2 (08:07→20:44)
[2017-04-15] MEDS: TOPIRAMATE 100 MG TAB PO SCH ×2 (08:07→20:45)
[2017-04-15] MEDS: FERROUS SULFATE 325 MG TAB PO SCH ×2 (08:08→17:46)
[2017-04-15] MEDS: ESCITALOPRAM OXALATE 20 MG TAB PO SCH (08:08)
[2017-04-15] MEDS: DIPYRIDAMOLE/ASPIRIN CAP PO SCH ×2 (08:08→20:46)
[2017-04-15] MEDS: FLUCONAZOLE 100 MG TAB PO SCH (08:09)
[2017-04-15] MEDS: RANOLAZINE 500 MG ER TAB PO SCH ×2 (08:09→21:02)
[2017-04-15] MEDS: LIDODERM (LIDOCAINE) PATCH 5% TD SCH (08:10)
[2017-04-15] MEDS: INSULIN ASPART 100 UNITS/ML 3 ML PEN SC SCH ×4 (08:12→20:50)
[2017-04-15] MEDS: HEPARIN SOD 5000 UNIT/0.5 ML CARP SQ SCH ×2 (08:13→20:52)
[2017-04-15] MEDS ORDERED: POTASSIUM CHLORIDE 10 MEQ TABCR PO STA (08:18)
[2017-04-15] MEDS: POTASSIUM CHLR 10 MEQ / WTR 10 MEQ in PREMIXED WATER 100 ML IV SCH ×2 (08:50→09:45)
[2017-04-15] MEDS ORDERED: VANCOMYCIN INJ 1,000 MG in SODIUM CHLORIDE 0.9% 250ML 250 ML IV ONE (10:00)
--- NOTE | 2017-04-15 10:00 | Pharmacy Progress Note ---
Pharmacy Abx Dose Progress Nt Date of Service Apr 15, 2017. Pharmacy Dosing Scope The patient is currently receiving the following antimicrobial agents per Pharmacy consult: -Vancomycin 2000 mg IV x 1 dose on 8 pm -Zosyn 3.375 g IV every 8h -Levaquin 750 mg IV every 48h Objective Height (Feet): 5 Height (Inches): 5.00 Weight (Kilograms): 79.800 Vital Signs (Past 12Hrs) Vital Signs Past 12 Hours Date Time Temp Pulse Resp B/P (MAP) Pulse Ox O2 Delivery O2 Flow Rate FiO2 04/15/17 08:18 37.2 78 18 144/79 (100) 96 04/15/17 08:00 Room Air 04/15/17 08:00 78 130/81 (97) 04/15/17 04:19 37.2 78 17 130/80 (97) 95 04/15/17 04:00 Room Air 04/15/17 00:00 Room Air 04/14/17 23:49 37.4 82 20 155/84 (107) 95 Room Air Lab Results (24Hrs) Laboratory Tests (24 Hours) Test 04/14/17 16:13 04/15/17 04:13 Lactic Acid Level 2.1 mmol/L (0.4-2.0) *H White Blood Count 12.62 K/uL (4.8-10.8) H Red Blood Count 4.30 M/uL (4.2-5.4) Hemoglobin 11.6 g/dL (12.0-16.0) L Hematocrit 35.9 % (37-47) L Mean Corpuscular Volume 83.5 fL (80-100) Mean Corpuscular Hemoglobin 27.0 pg (25-34) Mean Corpuscular Hemoglobin Concent 32.3 g/dl (32-36) Platelet Count 423 K/uL (130-400) H Mean Platelet Volume 8.6 fL (7.4-10.4) Neutrophils (%) (Auto) 70.9 % Lymphocytes (%) (Auto) 17.3 % Monocytes (%) (Auto) 9.9 % Eosinophils (%) (Auto) 1.1 % Basophils (%) (Auto) 0.2 % Neutrophils # (Auto) 8.96 K/uL (1.4-6.5) H Lymphocytes # (Auto) 2.18 K/uL (1.2-3.4) Monocytes # (Auto) 1.25 K/uL (0.11-0.59) H Eosinophils # (Auto) 0.14 K/uL (0-0.5) Basophils # (Auto) 0.02 K/uL (0-0.2) Total Creatine Kinase 37 U/L (26-192) Micro Results Date/Time Source Procedure Growth Status 04/14/17 16:02 Blood Blood Culture Pending Received 04/14/17 12:30 Blood Blood Culture Pending Received 04/14/17 00:00 Nasal MRSA DNA Surveillance Screen - Final Specimen Negative for MRSA by DNA Probe Complete 04/14/17 13:05 Urine,Catheterized Urine Culture - Preliminary Gram Negative Bacilli Resulted Risk Factors for Resistance * Resident in a prison or extended-care facility * Hospitalization for 48 hours or more within the past 90 days (04/04/17) * Antimicrobial use within the last 90 days: Doxycycline (unknown dose) Assessment & Plan Assessment 82 year old female being treated with Vanc + Levaquin + Zosyn for suspected pneumonia/UTI * LITA on CKD Stage III (baseline 1.5 - 1.7 mg/dL) * preliminary urine culture reported gram negative bacilli (h/o of mcdonough sensitive E. coli in urine - 08/11/16) * elevated QTC of 649 - > Levaquin stopped today Plan Continue Vanc + Zosyn Vancomycin IV * Dose of 2000 mg (25 mg/kg) was administered on 04/14 @ 1630 * Random level this am was 24.1 mcg/mL * Goal trough level for pneumonia : 15 to 20 mcg/mL * Will continue to dose based on random levels d/t acute renal failure. Maintenance doses will be determined once renal function stabilizes. * I anticipate level to be less than 20 mcg/mL around 1000. Will re-dose patient with Vanc 1000 mg IV at that time. * Estimated half life based on population kinetics is 30 hr, estimated half life based on est. peak/random level of 24.1 mcg/mL is ~15 hours (not at steady state). I suspect true half life is between these two values. * Random level ordered for 04/16/17 with AM labs * MRSA nasal swab negative and GNB in urine - unless gram positive species is identified in BC, recommend d/c MRSA coverage Piperacillin/tazobactam * 3.375 g bolus administered over 30 minutes, then 3.375 g IV extended infusion every 8 hours for CrCl greater than 20 mL/min Pharmacy will continue to follow and will adjust dose/frequency as necessary. Thank you.
--- NOTE | 2017-04-15 12:38 | Cardiology Consultation ---
Cardiology Consultation Date of Consultation: Apr 15, 2017. Requesting Physician: Dr. Mills Reason for Consultation: Elevated troponin Pt evaluation today including: conversation w/ patient, physical exam, lab review, review of studies, review of inpatient medication list History of Present Illness This is a 81-year-old woman who has a history of diabetes mellitus, chronic kidney disease, hypertension, hypercholesterolemia, paroxysmal atrial fibrillation and known coronary artery disease. She has had exertional chest discomfort for a number of years, she underwent catheterization in November 2014 where she had significant coronary disease identified although her left ventricular ejection fraction was normal. She was referred to [facility] for CT surgery, however she was at high risk for bypass surgery and she refused surgery I believe. In any case her surgery was not performed and she has been followed with medical therapy. She presents now with an altered mental status and increased confusion, and room and treated for a UTI and pneumonia for a number of days. At the time of my evaluation she remains confused, she does not always answer questions appropriately and she is oriented 2 (she does not know where she is, does know the month and year and her name). She specifically denies any cardiovascular symptoms by don't know for can rely on her history. She denies having chest pain currently, denies having chest pain prior to admission and denies shortness of breath or palpitations. Past Medical/Surgical History (1) Cervical spine fracture (2) Sternal fracture (3) Head injury (4) NSTEMI (non-ST elevated myocardial infarction) (5) Polymyalgia rheumatica (6) Adrenal insufficiency (7) Asthmatic bronchitis (8) TIA (transient ischemic attack) (9) Depression (10) Hyperlipidemia (11) Sepsis (12) CVA (cerebral infarction) (13) Osteoarthritis (14) GI bleed Family History Heart disease Myocardial infarction Social History Smoking Status: Former Smoker History of Alcohol Use: No Review of Systems Constitutional: No fever, No weight loss, No weakness Respiratory: No cough, No wheezing, No shortness of breath, No dyspnea on exertion Cardiac: No chest pain, No orthopnea, No PND, No edema, No palpitations Abdomen: No pain, No nausea, No vomiting, No diarrhea, No GI bleeding Female : No problem reported Neurologic: No paralysis, No weakness, No numbness/tingling, No balance problems Heme: No abnormal bleeding/bruising, No clotting problems Endo: No fatigue Skin: No problem reported All Other Systems: Reviewed and Negative Allergies Coded Allergies: Iodinated Diagnostic Agents (Verified Allergy, Severe, ANAPHYLAXIS, ) Volant (Verified Allergy, Severe, RASH, HIVES, TROUBLE BREATHING, 04/04/17 ) Promethazine (Verified Allergy, Severe, HIVES, TROUBLE BREATHING, 04/04/17) Bupropion (Verified Allergy, Intermediate, RASH, 04/04/17) Diazepam (Verified Allergy, Intermediate, Rash, 04/04/17) Reported by PT. Erythromycin (Verified Allergy, Intermediate, RASH, 04/04/17) Iodine (Verified Allergy, Intermediate, RASH, HIVES, 04/04/17) Penicillins (Verified Allergy, Intermediate, RASH, 04/04/17) Phenytoin (Verified Allergy, Unknown, PT UNSURE, 04/04/17) Tamsulosin (Verified Adverse Reaction, Intermediate, DIZZINESS, 04/04/17) Medications Current Inpatient Medications Medications (Trade) Dose Ordered Sig/Phil Route Start Time Stop Time Status Last Admin Dose Admin Fluconazole (Diflucan Tab) 100 mg QAM PO 04/14/17 17:00 04/22/17 09:00 04/15/17 08:09 100 MG Heparin Sodium (Porcine) (Heparin Sq 5000 Unit/0.5ml) 5,000 unit Q12 SQ 04/14/17 21:00 05/14/17 20:59 04/15/17 08:13 5,000 UNIT Acetaminophen (Tylenol Tab) 650 mg Q4H PRN PO 04/14/17 14:00 05/14/17 13:59 04/15/17 00:18 650 MG Al Hydrox/Mg Hydrox/Simethicone (Maalox Max Susp) 15 ml Q4H PRN PO 04/14/17 14:00 05/14/17 13:59 Magnesium Hydroxide (Milk Of Magnesia Susp) 30 ml Q12H PRN PO 04/14/17 14:00 05/14/17 13:59 Ondansetron HCl (Zofran Inj) 4 mg Q6H PRN IV 04/14/17 14:00 05/14/17 13:59 Polyethylene (Miralax Powder Packet) 17 gm DAILY PRN PO 04/14/17 14:00 05/14/17 13:59 Dipyridamole/ Aspirin (Aggrenox 200MG/ 25MG Cap) 1 cap BID PO 04/14/17 21:00 05/14/17 20:59 04/15/17 08:08 1 CAP Docusate Sodium (coLACE CAP) 100 mg BID PO 04/14/17 21:00 05/14/17 20:59 04/15/17 08:07 100 MG Escitalopram Oxalate (Lexapro Tab) 20 mg DAILY PO 04/15/17 09:00 05/15/17 08:59 04/15/17 08:08 20 MG Ferrous Sulfate (Feosol Tab) 325 mg BIDM PO 04/14/17 17:00 05/14/17 17:59 04/15/17 08:08 325 MG Insulin Glargine (Lantus Solostar Pen) 15 units HS SC 04/14/17 21:00 05/14/17 20:59 04/14/17 20:55 15 UNITS Isosorbide Mononitrate (Imdur Ext Rel Tab) 90 mg QAM PO 04/15/17 09:00 05/15/17 08:59 04/15/17 08:06 90 MG Lidocaine (Lidoderm Patch 5%) 1 patch DAILY TD 04/15/17 09:00 05/15/17 08:59 04/15/17 08:10 1 PATCH Pantoprazole Sodium (Protonix Tab) 40 mg QPM PO 04/14/17 21:00 05/14/17 20:59 04/14/17 20:38 40 MG Prednisone (PredniSONE TAB) 5 mg QAM PO 04/15/17 09:00 05/15/17 08:59 04/15/17 08:07 5 MG Simvastatin (Zocor Tab) 40 mg HS PO 04/14/17 21:00 05/14/17 20:59 04/14/17 20:38 40 MG Topiramate (Topamax Tab) 200 mg BID PO 04/14/17 21:00 05/14/17 20:59 04/15/17 08:07 200 MG Ranolazine (Ranexa ER Tab) 1,000 mg BID PO 04/14/17 21:00 05/14/17 20:59 04/15/17 08:09 1,000 MG Miscellaneous (Remove Lidoderm Patch) 1 ea DAILY@21 N/A 04/14/17 21:00 05/14/17 20:59 Insulin Aspart (novoLOG ASPART) SLIDING SCALE G... ACHS SC 04/14/17 16:30 05/14/17 16:29 04/15/17 08:12 1 UNITS Vancomycin HCl (Consult) 1 ea UD PRN N/A 04/14/17 16:00 05/14/17 15:59 Levofloxacin 750 mg/Prmx 150 ml @ 100 mls/hr Q48H IV 04/14/17 20:00 04/21/17 19:59 04/14/17 20:09 100 MLS/HR Piperacillin Sod/ Tazobactam Sod (Consult) 1 ea UD PRN N/A 04/14/17 16:15 05/14/17 16:14 Piperacillin Sod/ Tazobactam Sod 3.375 gm/Dextrose 115 ml @ 28.75 mls/ hr Q8H IV 04/14/17 22:00 04/24/17 13:59 04/15/17 06:01 28.75 MLS/HR Glucose (Glucose 40% Gel) 15-30 GRAMS 15 GRAMS... UD PRN PO 04/14/17 16:30 05/14/17 16:29 Glucose (Glucose Chew Tab) 4-8 Tablets 4 Tabl... UD PRN PO 04/14/17 16:30 05/14/17 16:29 Dextrose (Dextrose 50% 50ML Syringe) 25-50ML OF 50% DW IV FOR... UD PRN IV 04/14/17 16:30 05/14/17 16:29 Glucagon (Glucagon Inj) 1 mg UD PRN SQ 04/14/17 16:30 05/14/17 16:29 Potassium Chloride 10 meq/ Prmx 100 ml @ 100 mls/hr Q1H IV 04/15/17 08:45 04/15/17 10:44 04/15/17 08:50 100 MLS/HR Physical Exam Vital Signs Past 12 Hours Date Time Temp Pulse Resp B/P (MAP) Pulse Ox O2 Delivery O2 Flow Rate FiO2 04/15/17 08:18 37.2 78 18 144/79 (100) 96 04/15/17 08:00 78 130/81 (97) 04/15/17 04:19 37.2 78 17 130/80 (97) 95 04/15/17 04:00 Room Air 04/15/17 00:00 Room Air 04/14/17 23:49 37.4 82 20 155/84 (107) 95 Room Air Constitutional: General Apperance: heathly-appearing, well-nourished Level of Distress: NAD Psychiatric: Mental Status: confused Orientation: not oriented to place Head: normocephalic Eyes: EOM: EOMI ENMT: normal ENT inspection, hearing grossly normal Neck: supple, no masses Lungs: Respiratory effort: no dyspnea, good air movement Auscultation: breath sounds normal, no wheezing Cardiovascular: Heart Auscultation: RRR, no murmurs, no rubs, no gallops Peripheral Pulses: Bruits: none appreciated Abdomen: Bowel Sounds: normal Inspection & Palpation: soft, no tenderness, guarding & rebound, no masses Musculoskeletal: normal strength (5/5 throughout) Extremities: no edema Neurologic: Cranial Nerves: grossly intact Sensation: grossly intact Data Laboratory Results: Last 24 Hours Test 04/14/17 12:30 04/14/17 13:05 04/14/17 16:13 04/14/17 16:26 White Blood Count 14.21 K/uL Red Blood Count 4.63 M/uL Hemoglobin 12.9 g/dL Hematocrit 38.6 % Mean Corpuscular Volume 83.4 fL Mean Corpuscular Hemoglobin 27.9 pg Mean Corpuscular Hemoglobin Concent 33.4 g/dl Platelet Count 496 K/uL Mean Platelet Volume 9.0 fL Neutrophils (%) (Auto) 76.0 % Lymphocytes (%) (Auto) 15.4 % Monocytes (%) (Auto) 7.4 % Eosinophils (%) (Auto) 0.2 % Basophils (%) (Auto) 0.1 % Neutrophils # (Auto) 10.80 K/uL Lymphocytes # (Auto) 2.19 K/uL Monocytes # (Auto) 1.05 K/uL Eosinophils # (Auto) 0.03 K/uL Basophils # (Auto) 0.01 K/uL RDW Standard Deviation 61.6 fL RDW Coefficient of Variation 20.4 % Immature Granulocyte % (Auto) 0.9 % Immature Granulocyte # (Auto) 0.13 K/uL Anisocytosis PRESENT Sodium Level 131 mmol/L Potassium Level 2.8 mmol/L Chloride Level 82 mmol/L Carbon Dioxide Level 39 mmol/L Anion Gap 10.0 mmol/L Blood Urea Nitrogen 53 mg/dl Creatinine 2.10 mg/dl Est Creatinine Clear Calc Drug Dose 21.9 ml/min Estimated GFR () 25.0 Estimated GFR (Non- 21.5 BUN/Creatinine Ratio 25.3 Random Glucose 343 mg/dl Calcium Level 11.2 mg/dl Phosphorus Level 2.4 mg/dl Magnesium Level 3.4 mg/dl Total Creatine Kinase 40 U/L Creatine Kinase MB 0.9 ng/ml Creatine Kinase MB Ratio 2.3 Troponin I 1.810 ng/ml Beta-Hydroxybutyric Acid 1.23 mg/dL Urine Color YELLOW Urine Appearance TURBID Urine pH 7.5 Urine Specific [place] 1.014 Urine Protein NEG Urine Glucose (UA) NEG Urine Ketones NEG Urine Occult Blood 1+ Urine Nitrite NEG Urine Bilirubin NEG Urine Urobilinogen NEG Urine Leukocyte Esterase LARGE Urine WBC (Auto) >30 /hpf Urine RBC (Auto) 5-10 /hpf Urine Hyaline Casts (Auto) 5-10 /lpf Urine Epithelial Cells (Auto) 5-10 /lpf Urine Bacteria (Auto) 4+ Lactic Acid Level 2.1 mmol/L Bedside Glucose 303 mg/dl Test 04/14/17 18:51 04/14/17 20:39 04/15/17 04:13 04/15/17 04:17 Sodium Level 130 mmol/L 134 mmol/L Potassium Level 3.0 mmol/L 2.7 mmol/L Chloride Level 84 mmol/L 92 mmol/L Carbon Dioxide Level 37 mmol/L 33 mmol/L Anion Gap 9.0 mmol/L 9.0 mmol/L Blood Urea Nitrogen 59 mg/dl 60 mg/dl Creatinine 2.30 mg/dl 2.00 mg/dl Est Creatinine Clear Calc Drug Dose 20.0 ml/min 23.0 ml/min Estimated GFR () 22.4 26.5 Estimated GFR (Non- 19.3 22.8 BUN/Creatinine Ratio 25.4 29.8 Random Glucose 311 mg/dl 122 mg/dl Calcium Level 10.4 mg/dl 10.1 mg/dl Total Creatine Kinase 42 U/L 37 U/L Creatine Kinase MB 1.0 ng/ml 2.0 ng/ml Creatine Kinase MB Ratio 2.4 5.4 Troponin I 1.580 ng/ml 1.270 ng/ml Beta-Hydroxybutyric Acid 1.22 mg/dL Bedside Glucose 266 mg/dl 117 mg/dl White Blood Count 12.62 K/uL Red Blood Count 4.30 M/uL Hemoglobin 11.6 g/dL Hematocrit 35.9 % Mean Corpuscular Volume 83.5 fL Mean Corpuscular Hemoglobin 27.0 pg Mean Corpuscular Hemoglobin Concent 32.3 g/dl Platelet Count 423 K/uL Mean Platelet Volume 8.6 fL Neutrophils (%) (Auto) 70.9 % Lymphocytes (%) (Auto) 17.3 % Monocytes (%) (Auto) 9.9 % Eosinophils (%) (Auto) 1.1 % Basophils (%) (Auto) 0.2 % Neutrophils # (Auto) 8.96 K/uL Lymphocytes # (Auto) 2.18 K/uL Monocytes # (Auto) 1.25 K/uL Eosinophils # (Auto) 0.14 K/uL Basophils # (Auto) 0.02 K/uL RDW Standard Deviation 62.2 fL RDW Coefficient of Variation 20.4 % Immature Granulocyte % (Auto) 0.6 % Immature Granulocyte # (Auto) 0.07 K/uL Hypersegmented Polys 1+ Anisocytosis PRESENT Magnesium Level 2.9 mg/dl Random Vancomycin Level 24.1 mcg/ml Test 04/15/17 07:39 Bedside Glucose 157 mg/dl Imaging: Echocardiography 12/31/2016 showed normal left ventricular size and systolic function with mild left ventricular hypertrophy. She had mild aortic sclerosis without stenosis. EKG: Sinus rhythm with a borderline nonspecific interventricular conduction delay, minor ST-T abnormalities, no acute changes Telemetry reviewed: Assessment & Plan #1. Elevated troponin: She has known coronary artery disease and in the past has had elevated troponins consistent with demand ischemia. I believe her current elevation of troponin is probably the same, it is unlikely that this represents an acute myocardial infarction. #2. Coronary disease: She has known coronary artery disease, based on her records from the office her symptoms were dyspnea on exertion not chest pain. We 've no objective evidence of progression of disease, at her last catheterization intervention was not felt to be the best option and that probably still remains. I don't think we should consider catheterization, certainly not now. She is on a statin, and she is on Aggrenox but that is only 25 mg of aspirin. I would consider at least adding a 81 mg aspirin to her regimen or switching Aggrenox to aspirin and clopidogrel. Thank you for allowing me to participate in her care.
--- NOTE | 2017-04-15 15:46 | Progress Note ---
Subjective Date of Service: Apr 15, 2017. Subjective Pt evaluation today including: conversation w/ patient, conversation w/ family , physical exam, chart review, lab review, review of studies, conversation w/ dynamics ax consultant, review of inpatient medication list Renal status much improved patient is awake and alert and orientated, conversational, however she may have visual hallucinations and report asthma and he came from IV Otherwise no complaining Problem List Medical Problems: (1) Acute head injury Status: Acute (2) Altered mental status Status: Acute (3) Back pain Status: Acute (4) Back pain Status: Acute (5) Blind right eye Status: Chronic (6) Bruising Status: Acute (7) CHF (congestive heart failure) Status: Acute (8) Compression fracture Status: Acute (9) Contusion of right shoulder Status: Acute (10) Depression Status: Chronic (11) Depression Status: Acute (12) Elevated serum creatinine Status: Acute (13) Fall Status: Acute (14) Fall Status: Acute (15) Fecal retention Status: Acute (16) Fracture of fifth metacarpal bone of right hand Status: Acute (17) Fracture of thoracic transverse process Status: Acute (18) Generalized weakness Status: Acute (19) Headache Status: Acute (20) Hypokalemia Status: Acute (21) Intractable back pain Status: Acute (22) Intractable back pain Status: Acute (23) Intractable back pain Status: Acute (24) Left sided chest pain Status: Acute (25) Lumbar compression fracture Status: Acute (26) Lumbar transverse process fracture Status: Acute (27) Mild dehydration Status: Acute (28) Multiple fractures of thoracic spine Status: Acute (29) Multiple fractures of thoracic spine Status: Acute (30) Multiple fractures of thoracic spine Status: Acute (31) Multiple rib fractures Status: Acute (32) Peripheral edema Status: Acute (33) Pleural effusion Status: Acute (34) Pneumonia Status: Acute (35) Precordial chest pain Status: Acute (36) Right facial numbness Status: Acute (37) Right-sided chest wall pain Status: Acute (38) Suicide attempt by acetaminophen overdose Status: Acute (39) Tylenol overdose Status: Acute (40) Unstable angina Status: Acute (41) Urinary retention Status: Acute (42) Urinary retention Status: Acute Review of Systems Constitutional: + weakness, + fatigue, No fever, No chills, No sweats, No weight loss, No problem reported Eyes: No worsening of vision, No eye pain, No redness, No discharge, No diplopia ENT: No hearing loss, No unusual epistaxis, No nasal symptoms, No sore throat, No tinnitus, No dental problems, No trouble swallowing Respiratory: + cough, No sputum, No wheezing, No shortness of breath, No dyspnea on exertion, No dyspnea at rest, No hemoptysis Cardiac: No chest pain, No orthopnea, No PND, No edema, No claudication, No palpitations Abdomen: No pain, No nausea, No vomiting, No diarrhea, No constipation Musculoskeletal: No joint pain, No muscle pain, No swelling, No calf pain Female : No dysuria, No urinary frequency, No hematuria, No incontinence, No abnormal vaginal bleeding, No vaginal discharge Neurologic: No memory loss, No paralysis, No weakness, No numbness/tingling, No vertigo, No balance problems Psychiatric: No depression symptoms, No anhedonism, No anxiety, No insomnia, No substance abuse Heme: No abnormal bleeding/bruising, No clotting problems, No swollen lymph nodes, No night sweats Endo: No fatigue, No excessive thirst, No excessive urination Skin: No rash, No itch, No new/changing skin lesions, No color change, No bleeding Objective Vital Signs Date Time Temp Pulse Resp B/P (MAP) Pulse Ox O2 Delivery O2 Flow Rate FiO2 04/15/17 12:00 Room Air 04/15/17 11:47 37.0 82 18 148/82 (104) 90 04/15/17 08:18 37.2 78 18 144/79 (100) 96 04/15/17 08:00 Room Air 04/15/17 08:00 78 130/81 (97) 04/15/17 04:19 37.2 78 17 130/80 (97) 95 04/15/17 04:00 Room Air 04/15/17 00:00 Room Air 04/14/17 23:49 37.4 82 20 155/84 (107) 95 Room Air 04/14/17 20:00 Room Air 04/14/17 20:00 37.3 86 20 136/82 (100) 94 Room Air 04/14/17 16:00 Room Air 04/14/17 15:48 37.5 84 18 127/76 (93) 94 Room Air Physical Exam General Appearance: WD/WN, no apparent distress, + pertinent finding (chronic ill-looking) Eyes: normal inspection, PERRL, EOMI, sclerae normal ENT: normal ENT inspection, hearing grossly normal, pharynx normal Neck: supple, no adenopathy, thyroid normal, no JVD, no carotid bruits, trachea midline Respiratory/Chest: chest non-tender, normal breath sounds, no respiratory distress, no accessory muscle use, + decreased breath sounds Cardiovascular: regular rate, rhythm, no edema, no gallop, no JVD, no murmur Abdomen: normal bowel sounds, non tender, soft, no organomegaly, no pulsatile mass Extremities: normal range of motion, non-tender, normal inspection, no pedal edema, no calf tenderness, normal capillary refill, pelvis stable Neurologic/Psychiatric: parts person II-XII nml as tested, no motor/sensory deficits, alert, normal mood/affect, oriented x 3 Skin: normal color, warm/dry, no rash Lymphatic: no adenopathy Laboratory Results Last 24 Hours Test 04/14/17 16:13 04/14/17 16:26 04/14/17 18:51 04/14/17 20:39 Lactic Acid Level 2.1 mmol/L Bedside Glucose 303 mg/dl 266 mg/dl Sodium Level 130 mmol/L Potassium Level 3.0 mmol/L Chloride Level 84 mmol/L Carbon Dioxide Level 37 mmol/L Anion Gap 9.0 mmol/L Blood Urea Nitrogen 59 mg/dl Creatinine 2.30 mg/dl Est Creatinine Clear Calc Drug Dose 20.0 ml/min Estimated GFR () 22.4 Estimated GFR (Non- 19.3 BUN/Creatinine Ratio 25.4 Random Glucose 311 mg/dl Calcium Level 10.4 mg/dl Total Creatine Kinase 42 U/L Creatine Kinase MB 1.0 ng/ml Creatine Kinase MB Ratio 2.4 Troponin I 1.580 ng/ml Beta-Hydroxybutyric Acid 1.22 mg/dL Test 04/15/17 04:13 04/15/17 04:17 04/15/17 07:39 04/15/17 11:22 White Blood Count 12.62 K/uL Red Blood Count 4.30 M/uL Hemoglobin 11.6 g/dL Hematocrit 35.9 % Mean Corpuscular Volume 83.5 fL Mean Corpuscular Hemoglobin 27.0 pg Mean Corpuscular Hemoglobin Concent 32.3 g/dl Platelet Count 423 K/uL Mean Platelet Volume 8.6 fL Neutrophils (%) (Auto) 70.9 % Lymphocytes (%) (Auto) 17.3 % Monocytes (%) (Auto) 9.9 % Eosinophils (%) (Auto) 1.1 % Basophils (%) (Auto) 0.2 % Neutrophils # (Auto) 8.96 K/uL Lymphocytes # (Auto) 2.18 K/uL Monocytes # (Auto) 1.25 K/uL Eosinophils # (Auto) 0.14 K/uL Basophils # (Auto) 0.02 K/uL RDW Standard Deviation 62.2 fL RDW Coefficient of Variation 20.4 % Immature Granulocyte % (Auto) 0.6 % Immature Granulocyte # (Auto) 0.07 K/uL Hypersegmented Polys 1+ Anisocytosis PRESENT Sodium Level 134 mmol/L Potassium Level 2.7 mmol/L Chloride Level 92 mmol/L Carbon Dioxide Level 33 mmol/L Anion Gap 9.0 mmol/L Blood Urea Nitrogen 60 mg/dl Creatinine 2.00 mg/dl Est Creatinine Clear Calc Drug Dose 23.0 ml/min Estimated GFR () 26.5 Estimated GFR (Non- 22.8 BUN/Creatinine Ratio 29.8 Random Glucose 122 mg/dl Calcium Level 10.1 mg/dl Magnesium Level 2.9 mg/dl Total Creatine Kinase 37 U/L Creatine Kinase MB 2.0 ng/ml Creatine Kinase MB Ratio 5.4 Troponin I 1.270 ng/ml Random Vancomycin Level 24.1 mcg/ml Bedside Glucose 117 mg/dl 157 mg/dl 278 mg/dl Assessment and Plan 82-year-old female with a history of multiple medical problems presented to the emergency department with altered mental status. She was from [facility] and was admitted on 04/15/2017 Metabolic encephalopathy with Altered mental status, upon admission Possible sepsis probably secondary to UTI and pneumonia Resent gram-positive bacilli from a urine that was done on 04/12. Failed doxycycline outpatient treatment Continue Broad-spectrum antibiotic coverage with vancomycin, Zosyn renally dosed Discontinue Levaquin because of prolonged QT Snares walker negative for MRSA Possible nail down antibiotic to zosyn soon , or per sensitivity -Follow up blood cultures Acute on chronic renal failure likely secondary to dehydration, likely contributed to mental status change to -Continue IVF -follow PRP -renally dose meds -Continue Temporarily hold diuretics. Patient is typically on Lasix 80 mg twice daily, metalozone 2.5 mg daily Elevated troponin-likely secondary to acute illness, demanding , or, from acute kidney failure Jacquard Fixer saw patient, will follow-up -Continue current cardiac meds: Per oyster bed worker, patient has known coronary artery disease and in the past has had elevated troponins consistent with demand ischemia. it is unlikely that this represents an acute myocardial infarction. Is on Aggrenox twice daily, will add aspirin per recommendation cont Imdur 90 mg daily, simvastatin 40 mg daily Hypokalemia, replace and follow-up Oral candidiasis, Diflucan 100 mg daily 7 days diabetes mellitus, pharmacy consulted Altered mental status with frequent fall, will add head CT stat Spine fx from falls -continue lidoderm patch -PT/OT Depression -Continue Lexapro 20 mg daily Chronic steroid use for RA -increase prednisone from 5 mg to 10 mg daily for stress dosing DVT prophylaxis -Heparin 5000 u subQ BID -TEDS, SCDs CODE STATUS -LEVEL V DO NO RESUSCITATE Continued [facility] stay due to: multiple IV medications needed Discharge planning: half-way facility
--- NOTE | 2017-04-15 16:35 | DIAGNOSTIC IMAGING REPORT ---
HEAD WITHOUT CONTRAST (CT) CT DOSE: 614.27 mGy.cm HISTORY: Trauma. Mental status change. ams and hx of request fall TECHNIQUE: Multiaxial CT images of the head were performed without the use of intravenous contrast. A dose lowering technique was utilized adhering to the principles of ALARA. Comparison: 04/04/2017 Findings: The paranasal sinuses and mastoid air cells are clear. The calvarium and skull base are intact. The ventricles and sulci are within normal limits. There is no mass, hematoma, midline shift, or acute infarct. Impression: No acute intracranial abnormality. The above report was generated using voice recognition software. It may contain grammatical, syntax or spelling errors. Electronically signed by: Ashwin Handy M.D. 04/15/2017 4:34 PM Dictated Date/Time: 04/15/2017 4:33 PM
[2017-04-15 16:48] LABS: BUN/CREATININE RATIO 27.3 (10-20); CALCIUM 9.5 mg/dl (8.5-10.1); CREATININE 1.9 mg/dl (0.60-1.20); POTASSIUM 3.2 mmol/L (3.5-5.1)
[2017-04-15] MEDS: PANTOprazole SOD 40 MG TAB PO SCH (20:46)
[2017-04-15] MEDS: SIMVASTATIN 40 MG TAB PO SCH (20:47)
[2017-04-15] MEDS: INSULIN GLARGINE SOLOSTAR 100 UNITS/ML 3 ML PEN SC SCH (20:51)
[2017-04-16] MEDS: ACETAMINOPHEN 325 MG TAB PO PRN ×2 (02:34→06:15)
[2017-04-16 04:27] VITALS: BP 155/79; PULSE 77; TEMP 36.4; O2SAT 94
[2017-04-16] MEDS: PIPERACILL/TAZOBAC IV 3.375 GM in DEXTROSE 5% 100ML IV SCH (05:33)
[2017-04-16 06:39] LABS: BASO % 0.3 %; BASO ABS # 0.03 K/uL (0-0.2); EOS % 2.6 %; HEMATOCRIT 36.6 % (37-47); IG% 0.8 %; LYMPH % 20.2 %; MEAN CELL VOLUME 83.8 fL (80-100); MEAN CORPUSCULAR HEMOGLOBIN 27.2 pg (25-34); MEAN CORPUSCULAR HGB CONC 32.5 g/dl (32-36); MEAN PLATELET VOLUME 8.7 fL (7.4-10.4); MONO % 8.7 %; NEUT % 67.4 %; PLATELET COUNT 448 K/uL (130-400); RED BLOOD COUNT 4.37 M/uL (4.2-5.4); WHITE BLOOD COUNT 10.38 K/uL (4.8-10.8)
[2017-04-16 07:18] LABS: BUN/CREATININE RATIO 23.9 (10-20); CALCIUM 9.5 mg/dl (8.5-10.1); CREATININE 1.9 mg/dl (0.60-1.20); POTASSIUM 2.5 mmol/L (3.5-5.1)
[2017-04-16 07:23] LABS: ANISOCYTOSIS PRESENT; COMPLETE YES; ECHINOCYTES 1+
[2017-04-16] MEDS ORDERED: POTASSIUM CHLORIDE 10 MEQ TABCR PO ONE (07:45)
[2017-04-16] MEDS: DIPYRIDAMOLE/ASPIRIN CAP PO SCH ×2 (07:56→20:59)
[2017-04-16] MEDS: DOCUSATE SODIUM 100 MG CAP PO SCH ×2 (07:56→20:59)
[2017-04-16] MEDS: FERROUS SULFATE 325 MG TAB PO SCH ×2 (07:56→19:36)
[2017-04-16] MEDS: LIDODERM (LIDOCAINE) PATCH 5% TD SCH (07:56)
[2017-04-16] MEDS: TOPIRAMATE 100 MG TAB PO SCH ×2 (07:56→21:00)
[2017-04-16] MEDS: ESCITALOPRAM OXALATE 20 MG TAB PO SCH (07:56)
[2017-04-16] MEDS: ISOSORBIDE MONONITRATE 30 MG TABCR PO SCH (07:56)
[2017-04-16 07:57] VITALS: BP 145/55; PULSE 79; TEMP 36.7; O2SAT 97
[2017-04-16] MEDS: FLUCONAZOLE 100 MG TAB PO SCH (07:57)
[2017-04-16] MEDS: INSULIN ASPART 100 UNITS/ML 3 ML PEN SC SCH ×4 (07:59→21:00)
[2017-04-16] MEDS: HEPARIN SOD 5000 UNIT/0.5 ML CARP SQ SCH ×2 (08:00→21:05)
[2017-04-16] MEDS: POTASSIUM CHLR 10 MEQ / WTR 10 MEQ in PREMIXED WATER 100 ML IV SCH ×2 (08:23→10:19)
[2017-04-16] MEDS: RANOLAZINE 500 MG ER TAB PO SCH ×2 (10:19→21:01)
[2017-04-16] MEDS: CEPHALEXIN MONOHYDRATE 250 MG CAP PO SCH ×2 (10:19→20:58)
[2017-04-16 11:44] VITALS: BP 184/96; PULSE 84; TEMP 37; O2SAT 97
--- NOTE | 2017-04-16 13:56 | Cardiology Follow-Up ---
Subjective Date of Service: Apr 16, 2017. Pt evaluation today including: conversation w/ patient, physical exam, lab review, review of studies, review of inpatient medication list History of Present Illness This is a 81-year-old woman who has a history of diabetes mellitus, chronic kidney disease, hypertension, hypercholesterolemia, paroxysmal atrial fibrillation and known coronary artery disease. She has had exertional chest discomfort for a number of years, she underwent catheterization in November 2014 where she had significant coronary disease identified although her left ventricular ejection fraction was normal. She was referred to [facility] for CT surgery, however she was at high risk for bypass surgery and she refused surgery I believe. In any case her surgery was not performed and she has been followed with medical therapy. She presents now with an altered mental status and increased confusion, and room and treated for a UTI and pneumonia for a number of days. She remains somewhat confused, she does not always answer questions appropriately. She specifically denies any cardiovascular symptoms but I don't know if we can rely on her history. She denies having chest pain currently, denies having chest pain prior to admission and denies shortness of breath or palpitations. Social History Smoking Status: Former Smoker History of Alcohol Use: No Review of Systems Respiratory: + cough, No sputum, No wheezing, No shortness of breath, No dyspnea on exertion, No dyspnea at rest, No hemoptysis Cardiac: No chest pain, No orthopnea, No PND, No edema, No claudication, No palpitations Medications Cardiovascular: Item Value Date Time Isosorbide 90 mg 04/15/17 0900 Mononitrate QAM/PO 04/16/17 0756 (Imdur Ext Rel Tab) Dipyridamole/ 1 cap 04/14/17 2100 Aspirin BID/PO 04/16/17 0756 (Aggrenox 200MG/ 25MG Cap) Simvastatin 40 mg 04/14/17 2100 (Zocor Tab) HS/PO 04/15/17 2047 Ranolazine 1,000 mg 04/14/17 2100 (Ranexa ER Tab) BID/PO 04/16/17 1019 Objective Vital Signs Past 12 Hours Date Time Temp Pulse Resp B/P (MAP) Pulse Ox O2 Delivery O2 Flow Rate FiO2 04/16/17 12:00 Room Air 04/16/17 11:44 37.0 84 20 184/96 (125) 97 Room Air 04/16/17 08:00 Room Air 04/16/17 07:57 36.7 79 18 145/55 (85) 97 Room Air 04/16/17 04:27 36.4 77 20 155/79 (104) 94 Room Air 04/16/17 04:00 Room Air Last Recorded Weight-Kilograms: 79.800 Physical Exam Constitutional: General Apperance: heathly-appearing, well-nourished Level of Distress: NAD Lungs: Respiratory effort: no dyspnea, good air movement Auscultation: breath sounds normal, no wheezing Cardiovascular: Heart Auscultation: RRR, no murmurs, no rubs, no gallops Peripheral Pulses: Bruits: none appreciated Extremities: no edema Data Laboratory Results: Last 24 Hours Test 04/15/17 15:44 04/15/17 16:19 04/15/17 20:34 04/16/17 06:14 Sodium Level 133 mmol/L 130 mmol/L Potassium Level 3.2 mmol/L 2.5 mmol/L Chloride Level 93 mmol/L 90 mmol/L Carbon Dioxide Level 31 mmol/L 29 mmol/L Anion Gap 9.0 mmol/L 11.0 mmol/L Blood Urea Nitrogen 52 mg/dl 46 mg/dl Creatinine 1.90 mg/dl 1.90 mg/dl Est Creatinine Clear Calc Drug Dose 24.2 ml/min 24.2 ml/min Estimated GFR () 28.2 28.2 Estimated GFR (Non- 24.3 24.3 BUN/Creatinine Ratio 27.3 23.9 Random Glucose 212 mg/dl 126 mg/dl Calcium Level 9.5 mg/dl 9.5 mg/dl Bedside Glucose 209 mg/dl 146 mg/dl White Blood Count 10.38 K/uL Red Blood Count 4.37 M/uL Hemoglobin 11.9 g/dL Hematocrit 36.6 % Mean Corpuscular Volume 83.8 fL Mean Corpuscular Hemoglobin 27.2 pg Mean Corpuscular Hemoglobin Concent 32.5 g/dl Platelet Count 448 K/uL Mean Platelet Volume 8.7 fL Neutrophils (%) (Auto) 67.4 % Lymphocytes (%) (Auto) 20.2 % Monocytes (%) (Auto) 8.7 % Eosinophils (%) (Auto) 2.6 % Basophils (%) (Auto) 0.3 % Neutrophils # (Auto) 7.00 K/uL Lymphocytes # (Auto) 2.10 K/uL Monocytes # (Auto) 0.90 K/uL Eosinophils # (Auto) 0.27 K/uL Basophils # (Auto) 0.03 K/uL RDW Standard Deviation 62.0 fL RDW Coefficient of Variation 20.2 % Immature Granulocyte % (Auto) 0.8 % Immature Granulocyte # (Auto) 0.08 K/uL Anisocytosis PRESENT Echinocytes 1+ Random Vancomycin Level 20.4 mcg/ml Test 04/16/17 06:30 04/16/17 07:42 04/16/17 11:34 Magnesium Level 2.8 mg/dl Bedside Glucose 137 mg/dl 221 mg/dl EKG: Sinus rhythm, no acute changes Telemetry reviewed: Sinus rhythm, well-controlled heart rate in the 60s and 70s Assessment and Plan #1. Elevated troponin: She has known coronary artery disease and in the past has had elevated troponins consistent with demand ischemia. I believe her current elevation of troponin is probably the same, it started higher and trended down over 3 measurements and it is unlikely that this represents an acute myocardial infarction. #2. Coronary disease: She has known coronary artery disease, based on her records from the office her symptoms were dyspnea on exertion not chest pain. We 've no objective evidence of progression of disease since her last catheterization where intervention was not felt to be the best option and that probably still remains. I don't think we should consider catheterization, certainly not now. She is on a statin, and she is on Aggrenox but that is only 25 mg of aspirin. I agree with adding a 81 mg aspirin to her regimen. Thank you for allowing me to participate in her care.
[2017-04-16 16:07] VITALS: BP 101/66; PULSE 73; TEMP 36.9; O2SAT 96
--- NOTE | 2017-04-16 16:20 | Progress Note ---
Subjective Date of Service: Apr 16, 2017. Subjective Pt evaluation today including: conversation w/ patient, conversation w/ family , physical exam, chart review, lab review, review of studies, conversation w/ network security consultant, review of inpatient medication list Feeling good, feeding herself, feel more comfortable, no more visual hallucination, No complaint Problem List Medical Problems: (1) Acute head injury Status: Acute (2) Altered mental status Status: Acute (3) Back pain Status: Acute (4) Back pain Status: Acute (5) Blind right eye Status: Chronic (6) Bruising Status: Acute (7) CHF (congestive heart failure) Status: Acute (8) Compression fracture Status: Acute (9) Contusion of right shoulder Status: Acute (10) Depression Status: Chronic (11) Depression Status: Acute (12) Elevated serum creatinine Status: Acute (13) Fall Status: Acute (14) Fall Status: Acute (15) Fecal retention Status: Acute (16) Fracture of fifth metacarpal bone of right hand Status: Acute (17) Fracture of thoracic transverse process Status: Acute (18) Generalized weakness Status: Acute (19) Headache Status: Acute (20) Hypokalemia Status: Acute (21) Intractable back pain Status: Acute (22) Intractable back pain Status: Acute (23) Intractable back pain Status: Acute (24) Left sided chest pain Status: Acute (25) Lumbar compression fracture Status: Acute (26) Lumbar transverse process fracture Status: Acute (27) Mild dehydration Status: Acute (28) Multiple fractures of thoracic spine Status: Acute (29) Multiple fractures of thoracic spine Status: Acute (30) Multiple fractures of thoracic spine Status: Acute (31) Multiple rib fractures Status: Acute (32) Peripheral edema Status: Acute (33) Pleural effusion Status: Acute (34) Pneumonia Status: Acute (35) Precordial chest pain Status: Acute (36) Right facial numbness Status: Acute (37) Right-sided chest wall pain Status: Acute (38) Suicide attempt by acetaminophen overdose Status: Acute (39) Tylenol overdose Status: Acute (40) Unstable angina Status: Acute (41) Urinary retention Status: Acute (42) Urinary retention Status: Acute Review of Systems Constitutional: + weakness, + fatigue, No fever, No chills, No sweats, No weight loss, No problem reported Eyes: No worsening of vision, No eye pain, No redness, No discharge, No diplopia ENT: No hearing loss, No unusual epistaxis, No nasal symptoms, No sore throat, No tinnitus, No dental problems, No trouble swallowing Respiratory: No cough, No sputum, No wheezing, No shortness of breath, No dyspnea on exertion, No dyspnea at rest, No hemoptysis Cardiac: No chest pain, No orthopnea, No PND, No edema, No claudication, No palpitations Abdomen: No pain, No nausea, No vomiting, No diarrhea, No constipation Musculoskeletal: No joint pain, No muscle pain, No swelling, No calf pain Female : No dysuria, No urinary frequency, No hematuria, No incontinence, No abnormal vaginal bleeding, No vaginal discharge Neurologic: No memory loss, No paralysis, No weakness, No numbness/tingling, No vertigo, No balance problems Psychiatric: No depression symptoms, No anhedonism, No anxiety, No insomnia, No substance abuse Heme: No abnormal bleeding/bruising, No clotting problems, No swollen lymph nodes, No night sweats Endo: No fatigue, No excessive thirst, No excessive urination Skin: No rash, No itch, No new/changing skin lesions, No color change, No bleeding Objective Vital Signs Date Time Temp Pulse Resp B/P (MAP) Pulse Ox O2 Delivery O2 Flow Rate FiO2 04/16/17 16:07 36.9 73 20 101/66 (78) 96 Room Air 04/16/17 12:00 Room Air 04/16/17 11:44 37.0 84 20 184/96 (125) 97 Room Air 04/16/17 08:00 Room Air 04/16/17 07:57 36.7 79 18 145/55 (85) 97 Room Air 04/16/17 04:27 36.4 77 20 155/79 (104) 94 Room Air 04/16/17 04:00 Room Air 04/16/17 00:00 Room Air 04/15/17 23:39 36.8 74 20 110/70 (83) 95 Room Air 04/15/17 20:00 Room Air 04/15/17 19:55 36.9 81 18 154/76 (102) 95 Room Air Physical Exam General Appearance: WD/WN, no apparent distress, + pertinent finding (present looks better than yesterday) Eyes: normal inspection, PERRL, EOMI, sclerae normal ENT: normal ENT inspection, hearing grossly normal, pharynx normal Neck: supple, no adenopathy, thyroid normal, no JVD, no carotid bruits, trachea midline Respiratory/Chest: chest non-tender, normal breath sounds, no respiratory distress, no accessory muscle use, + decreased breath sounds Cardiovascular: regular rate, rhythm, no edema, no gallop, no JVD, no murmur Abdomen: normal bowel sounds, non tender, soft, no organomegaly, no pulsatile mass Extremities: normal range of motion, non-tender, normal inspection, no pedal edema, no calf tenderness, normal capillary refill, pelvis stable Neurologic/Psychiatric: quality rep II-XII nml as tested, no motor/sensory deficits, alert, normal mood/affect, oriented x 3 Skin: normal color, warm/dry, no rash Lymphatic: no adenopathy Laboratory Results Last 24 Hours Test 04/15/17 16:19 04/15/17 20:34 04/16/17 06:14 04/16/17 06:30 Bedside Glucose 209 mg/dl 146 mg/dl White Blood Count 10.38 K/uL Red Blood Count 4.37 M/uL Hemoglobin 11.9 g/dL Hematocrit 36.6 % Mean Corpuscular Volume 83.8 fL Mean Corpuscular Hemoglobin 27.2 pg Mean Corpuscular Hemoglobin Concent 32.5 g/dl Platelet Count 448 K/uL Mean Platelet Volume 8.7 fL Neutrophils (%) (Auto) 67.4 % Lymphocytes (%) (Auto) 20.2 % Monocytes (%) (Auto) 8.7 % Eosinophils (%) (Auto) 2.6 % Basophils (%) (Auto) 0.3 % Neutrophils # (Auto) 7.00 K/uL Lymphocytes # (Auto) 2.10 K/uL Monocytes # (Auto) 0.90 K/uL Eosinophils # (Auto) 0.27 K/uL Basophils # (Auto) 0.03 K/uL RDW Standard Deviation 62.0 fL RDW Coefficient of Variation 20.2 % Immature Granulocyte % (Auto) 0.8 % Immature Granulocyte # (Auto) 0.08 K/uL Anisocytosis PRESENT Echinocytes 1+ Sodium Level 130 mmol/L Potassium Level 2.5 mmol/L Chloride Level 90 mmol/L Carbon Dioxide Level 29 mmol/L Anion Gap 11.0 mmol/L Blood Urea Nitrogen 46 mg/dl Creatinine 1.90 mg/dl Est Creatinine Clear Calc Drug Dose 24.2 ml/min Estimated GFR () 28.2 Estimated GFR (Non- 24.3 BUN/Creatinine Ratio 23.9 Random Glucose 126 mg/dl Calcium Level 9.5 mg/dl Random Vancomycin Level 20.4 mcg/ml Magnesium Level 2.8 mg/dl Test 04/16/17 07:42 04/16/17 11:34 04/16/17 16:00 Bedside Glucose 137 mg/dl 221 mg/dl Assessment and Plan 82-year-old female with a history of multiple medical problems presented to the emergency department with altered mental status. She was from [facility] and was admitted on 04/15/2017 Metabolic encephalopathy with Altered mental status, upon admission Possible sepsis probably secondary to Klebsiella UTI and possible pneumonia Resent gram-positive bacilli from a urine that was done on 04/12. Failed doxycycline outpatient treatment Was on Broad-spectrum antibiotic coverage with vancomycin, Zosyn, renally dosed Change to Keflex by mouth only for possible Klebsiella UTI The best will be azithromycin for typical bacteria coverage, to consider azithromycin may cause prolonged QT and I will not order for now instead I am repeating chest x-ray to see if there is real pneumonia or not Discontinue Levaquin because of prolonged QT Snares walker negative for MRSA Acute on chronic renal failure likely secondary to dehydration, likely contributed to mental status change, Significant improves after IV fluid Has been on IV fluid, will discontinue, just don't want to have Avery overload -follow PRP -renally dose meds -Continue Temporarily hold diuretics. Patient is typically on Lasix 80 mg twice daily, metalozone 2.5 mg daily Elevated troponin-likely secondary to acute illness, demanding , or, from acute kidney failure Historiographer saw patient, will follow-up -Continue current cardiac meds: Per adhesive bandage machine operator, patient has known coronary artery disease and in the past has had elevated troponins consistent with demand ischemia. it is unlikely that this represents an acute myocardial infarction. Is on Aggrenox twice daily, will add aspirin per recommendation cont Imdur 90 mg daily, simvastatin 40 mg daily Hypokalemia, replace and follow-up Oral candidiasis, Diflucan 100 mg daily 7 days diabetes mellitus, pharmacy consulted Altered mental status with frequent fall, will add head CT stat Spine fx from falls -continue lidoderm patch -PT/OT Depression -Continue Lexapro 20 mg daily Chronic steroid use for RA -increase prednisone from 5 mg to 10 mg daily for stress dosing DVT prophylaxis -Heparin 5000 u subQ BID -TEDS, SCDs CODE STATUS -LEVEL V DO NO RESUSCITATE Possible discharge back to [facility] tomorrow Continued [facility] stay due to: multiple IV medications needed Discharge planning: half-way facility
[2017-04-16 17:05] LABS: BUN/CREATININE RATIO 22.4 (10-20); CALCIUM 9.1 mg/dl (8.5-10.1); CREATININE 1.7 mg/dl (0.60-1.20); POTASSIUM 3.2 mmol/L (3.5-5.1)
--- NOTE | 2017-04-16 17:16 | Pharmacy Progress Note ---
Pharmacy Antibiotic Prog Note Date of Service Apr 16, 2017. Subjective The patient is currently receiving Vancomycin 1000 mg IV dosing by serial levels. The patient is currently on day # 3 of 7 IV therapy. Objective Height (Feet): 5 Height (Inches): 5.00 Weight (Kilograms): 79.800 Levels: Item Value Date Time Random Vancomycin Level 20.4 mcg/ml 04/16/17 0614 Lab Results (24hrs): Test 04/16/17 06:14 04/16/17 06:30 04/16/17 11:34 04/16/17 16:14 White Blood Count 10.38 K/uL (4.8-10.8) Red Blood Count 4.37 M/uL (4.2-5.4) Hemoglobin 11.9 g/dL (12.0-16.0) Hematocrit 36.6 % (37-47) Mean Corpuscular Volume 83.8 fL (80-100) Mean Corpuscular Hemoglobin 27.2 pg (25-34) Mean Corpuscular Hemoglobin Concent 32.5 g/dl (32-36) Platelet Count 448 K/uL (130-400) Mean Platelet Volume 8.7 fL (7.4-10.4) Neutrophils (%) (Auto) 67.4 % Lymphocytes (%) (Auto) 20.2 % Monocytes (%) (Auto) 8.7 % Eosinophils (%) (Auto) 2.6 % Basophils (%) (Auto) 0.3 % Neutrophils # (Auto) 7.00 K/uL (1.4-6.5) Lymphocytes # (Auto) 2.10 K/uL (1.2-3.4) Monocytes # (Auto) 0.90 K/uL (0.11-0.59) Eosinophils # (Auto) 0.27 K/uL (0-0.5) Basophils # (Auto) 0.03 K/uL (0-0.2) RDW Standard Deviation 62.0 fL (36.4-46.3) RDW Coefficient of Variation 20.2 % (11.5-14.5) Immature Granulocyte % (Auto) 0.8 % Immature Granulocyte # (Auto) 0.08 K/uL (0.00-0.02) Anisocytosis PRESENT Echinocytes 1+ Sodium Level 130 mmol/L (136-145) 131 mmol/L (136-145) Potassium Level 2.5 mmol/L (3.5-5.1) 3.2 mmol/L (3.5-5.1) Chloride Level 90 mmol/L (98-107) 94 mmol/L (98-107) Carbon Dioxide Level 29 mmol/L (21-32) 29 mmol/L (21-32) Anion Gap 11.0 mmol/L (3-11) 8.0 mmol/L (3-11) Blood Urea Nitrogen 46 mg/dl (7-18) 38 mg/dl (7-18) Creatinine 1.90 mg/dl (0.60-1.20) 1.70 mg/dl (0.60-1.20) Est Creatinine Clear Calc Drug Dose 24.2 ml/min 27.1 ml/min Estimated GFR () 28.2 32.2 Estimated GFR (Non- 24.3 27.8 BUN/Creatinine Ratio 23.9 (10-20) 22.4 (10-20) Random Glucose 126 mg/dl (70-99) 170 mg/dl (70-99) Calcium Level 9.5 mg/dl (8.5-10.1) 9.1 mg/dl (8.5-10.1) Random Vancomycin Level 20.4 mcg/ml Magnesium Level 2.8 mg/dl (1.8-2.4) Bedside Glucose 221 mg/dl (70-90) Test 04/16/17 16:25 Bedside Glucose 187 mg/dl (70-90) Micro Results: Item Value Date Time Blood Culture - Preliminary Resulted 04/14/17 1602 Blood NO GROWTH TO DATE. Urine Culture - Final Complete 04/14/17 1305 Urine,Catheterized Klebsiella Pneumoniae Blood Culture - Preliminary Resulted 04/14/17 1230 Blood NO GROWTH TO DATE. MRSA DNA Surveillance Screen - Final Complete 04/14/17 0000 Nasal Specimen Negative for MRSA by DNA Probe Recent Pertinent Medications Item Value Date Time Cephalexin 250 mg 04/16/17 1000 Monohydrate BID/PO 04/16/17 1019 (Keflex Cap) Vancomycin HCl 1 ea 04/14/17 1600 (Consult) UD PRN/N/A Assessment & Plan [age] yo patient receiving antibiotics for UTI/Pneumonia. UTI coverage simplified to Cephalexin today. Vancomycin consult continues. This drug level is: X Therapeutic Change to Vancomycin 1000 mg IV every 36 hours. Goal peak level estimate: between 30 - 40 mcg/mL. Goal trough level estimate: between 15 - 20 mcg/mL. Will check Vancomycin trough around the third dose. Pharmacy will continue to follow and will adjust dose/frequency as necessary. Thank you
--- NOTE | 2017-04-16 19:21 | DIAGNOSTIC IMAGING REPORT ---
CHEST 2 VIEWS ROUTINE CLINICAL HISTORY: Pneumonia COMPARISON STUDY: 04/14/2017 FINDINGS: The cardiac and mediastinal contours remain stable. There is no failure. There is no lobar consolidation. There is a small right pleural effusion. There is an elliptical opacity within the right midlung zone, likely representing intrafissural fluid.[ IMPRESSION: 1. No significant change 2. Small right pleural effusion, partially loculated 3. Elliptical right midlung zone opacity, likely representing intrafissural fluid Electronically signed by: Corky Miller M.D. 04/16/2017 7:19 PM Dictated Date/Time: 04/16/2017 7:18 PM
[2017-04-16] MEDS ORDERED: VANCOMYCIN INJ 1,000 MG in SODIUM CHLORIDE 0.9% 250ML 250 ML IV SCH (20:00)
[2017-04-16 20:06] VITALS: BP 110/71; PULSE 78; TEMP 36.4; O2SAT 96
[2017-04-16] MEDS: SIMVASTATIN 40 MG TAB PO SCH (21:00)
[2017-04-16] MEDS: PANTOprazole SOD 40 MG TAB PO SCH (21:02)
[2017-04-16] MEDS: INSULIN GLARGINE SOLOSTAR 100 UNITS/ML 3 ML PEN SC SCH (21:05)
[2017-04-16 23:53] VITALS: BP 127/72; PULSE 78; TEMP 36.3; O2SAT 97
[2017-04-17] VITALS (7 sets, daily range): BP systolic 93–124; BP diastolic 54–71; PULSE 56–78; TEMP 36.2–36.6; O2SAT 91–98
[2017-04-17 06:48] LABS: BASO % 0.6 %; BASO ABS # 0.05 K/uL (0-0.2); EOS % 6.7 %; HEMATOCRIT 35.5 % (37-47); IG% 1.7 %; LYMPH % 22.2 %; LYMPH ABS # 1.73 K/uL (1.2-3.4); MEAN CELL VOLUME 83.7 fL (80-100); MEAN CORPUSCULAR HEMOGLOBIN 25.9 pg (25-34); MEAN PLATELET VOLUME 8.4 fL (7.4-10.4); MONO % 9.9 %; NEUT % 58.9 %; PLATELET COUNT 334 K/uL (130-400); RED BLOOD COUNT 4.24 M/uL (4.2-5.4); WHITE BLOOD COUNT 7.78 K/uL (4.8-10.8)
[2017-04-17 07:28] LABS: ANISOCYTOSIS PRESENT; COMPLETE YES; HYPERSEGMENTED POLYS 1+
[2017-04-17 07:30] LABS: BUN/CREATININE RATIO 23.8 (10-20); CALCIUM 9.3 mg/dl (8.5-10.1); CREATININE 1.4 mg/dl (0.60-1.20); MAGNESIUM 2.9 mg/dl (1.8-2.4); PHOSPHORUS 2.7 mg/dl (2.5-4.9); POTASSIUM 2.7 mmol/L (3.5-5.1)
[2017-04-17] MEDS: DIPYRIDAMOLE/ASPIRIN CAP PO SCH ×2 (07:37→21:10)
[2017-04-17] MEDS: ISOSORBIDE MONONITRATE 30 MG TABCR PO SCH (07:37)
[2017-04-17] MEDS: ESCITALOPRAM OXALATE 20 MG TAB PO SCH (07:37)
[2017-04-17] MEDS: FLUCONAZOLE 100 MG TAB PO SCH (07:37)
[2017-04-17] MEDS: DOCUSATE SODIUM 100 MG CAP PO SCH ×2 (07:37→21:00)
[2017-04-17] MEDS: CEPHALEXIN MONOHYDRATE 250 MG CAP PO SCH (07:37)
[2017-04-17] MEDS: FERROUS SULFATE 325 MG TAB PO SCH ×2 (07:37→17:25)
[2017-04-17] MEDS: TOPIRAMATE 100 MG TAB PO SCH ×2 (07:37→21:10)
[2017-04-17] MEDS: LIDODERM (LIDOCAINE) PATCH 5% TD SCH (07:38)
[2017-04-17] MEDS: RANOLAZINE 500 MG ER TAB PO SCH ×2 (07:38→21:10)
[2017-04-17] MEDS: HEPARIN SOD 5000 UNIT/0.5 ML CARP SQ SCH ×2 (07:45→21:22)
[2017-04-17] MEDS ORDERED: POTASSIUM CHLORIDE 10 MEQ TABCR PO STA (07:58)
[2017-04-17] MEDS: INSULIN ASPART 100 UNITS/ML 3 ML PEN SC SCH ×4 (08:34→21:21)
[2017-04-17] MEDS ORDERED: NURSING VERBAL MED ORDER ONE (09:45)
[2017-04-17] MEDS ORDERED: POTASSIUM CHLORIDE 20 MEQ TABCR PO SCH (10:00)
--- NOTE | 2017-04-17 17:35 | Progress Note ---
Subjective Date of Service: Apr 17, 2017. Subjective Pt evaluation today including: conversation w/ patient, physical exam, chart review, lab review, review of studies, conversation w/ human resources consultant, review of inpatient medication list Patient generally feeling okay, out off bed to the chair with assistance of nursing staff, eating food, no complaining Problem List Medical Problems: (1) Acute head injury Status: Acute (2) Altered mental status Status: Acute (3) Back pain Status: Acute (4) Back pain Status: Acute (5) Blind right eye Status: Chronic (6) Bruising Status: Acute (7) CHF (congestive heart failure) Status: Acute (8) Compression fracture Status: Acute (9) Contusion of right shoulder Status: Acute (10) Depression Status: Chronic (11) Depression Status: Acute (12) Elevated serum creatinine Status: Acute (13) Fall Status: Acute (14) Fall Status: Acute (15) Fecal retention Status: Acute (16) Fracture of fifth metacarpal bone of right hand Status: Acute (17) Fracture of thoracic transverse process Status: Acute (18) Generalized weakness Status: Acute (19) Headache Status: Acute (20) Hypokalemia Status: Acute (21) Intractable back pain Status: Acute (22) Intractable back pain Status: Acute (23) Intractable back pain Status: Acute (24) Left sided chest pain Status: Acute (25) Lumbar compression fracture Status: Acute (26) Lumbar transverse process fracture Status: Acute (27) Mild dehydration Status: Acute (28) Multiple fractures of thoracic spine Status: Acute (29) Multiple fractures of thoracic spine Status: Acute (30) Multiple fractures of thoracic spine Status: Acute (31) Multiple rib fractures Status: Acute (32) Peripheral edema Status: Acute (33) Pleural effusion Status: Acute (34) Pneumonia Status: Acute (35) Precordial chest pain Status: Acute (36) Right facial numbness Status: Acute (37) Right-sided chest wall pain Status: Acute (38) Suicide attempt by acetaminophen overdose Status: Acute (39) Tylenol overdose Status: Acute (40) Unstable angina Status: Acute (41) Urinary retention Status: Acute (42) Urinary retention Status: Acute Review of Systems Constitutional: + weakness, + fatigue, No fever, No chills, No sweats, No weight loss, No problem reported Eyes: No worsening of vision, No eye pain, No redness, No discharge, No diplopia ENT: No hearing loss, No unusual epistaxis, No nasal symptoms, No sore throat, No tinnitus, No dental problems, No trouble swallowing Respiratory: No cough, No sputum, No wheezing, No shortness of breath, No dyspnea on exertion, No dyspnea at rest, No hemoptysis Cardiac: No chest pain, No orthopnea, No PND, No edema, No claudication, No palpitations Abdomen: No pain, No nausea, No vomiting, No diarrhea, No constipation Musculoskeletal: No joint pain, No muscle pain, No swelling, No calf pain Female : No dysuria, No urinary frequency, No hematuria, No incontinence, No abnormal vaginal bleeding, No vaginal discharge Neurologic: No memory loss, No paralysis, No weakness, No numbness/tingling, No vertigo, No balance problems Psychiatric: No depression symptoms, No anhedonism, No anxiety, No insomnia, No substance abuse Heme: No abnormal bleeding/bruising, No clotting problems, No swollen lymph nodes, No night sweats Endo: No fatigue, No excessive thirst, No excessive urination Skin: No rash, No itch, No new/changing skin lesions, No color change, No bleeding Objective Vital Signs Date Time Temp Pulse Resp B/P (MAP) Pulse Ox O2 Delivery O2 Flow Rate FiO2 04/17/17 16:00 Room Air 04/17/17 15:08 36.5 77 18 117/69 (85) 94 Room Air 04/17/17 12:00 Room Air 04/17/17 11:41 78 97 04/17/17 11:36 78 18 106/66 (79) 98 Room Air 04/17/17 08:00 Room Air 04/17/17 07:30 36.5 75 18 124/71 (88) 94 Room Air 04/17/17 04:00 36.3 71 16 103/65 (78) 96 Room Air 04/17/17 04:00 Room Air 04/17/17 00:00 Room Air 04/16/17 23:53 36.3 78 16 127/72 (90) 97 Room Air 04/16/17 20:06 36.4 78 18 110/71 (84) 96 Room Air 04/16/17 20:00 Room Air Physical Exam General Appearance: WD/WN, no apparent distress, + pertinent finding (frail) Eyes: normal inspection, PERRL, EOMI, sclerae normal ENT: normal ENT inspection, hearing grossly normal, pharynx normal Neck: supple, no adenopathy, thyroid normal, no JVD, no carotid bruits, trachea midline Respiratory/Chest: chest non-tender, normal breath sounds, no respiratory distress, no accessory muscle use, + decreased breath sounds Cardiovascular: regular rate, rhythm, no edema, no gallop, no JVD, no murmur Abdomen: normal bowel sounds, non tender, soft, no organomegaly, no pulsatile mass Extremities: normal range of motion, non-tender, normal inspection, no pedal edema, no calf tenderness, normal capillary refill, pelvis stable Neurologic/Psychiatric: wire temperer II-XII nml as tested, no motor/sensory deficits, alert, normal mood/affect, oriented x 3 Skin: normal color, warm/dry, no rash Lymphatic: no adenopathy Laboratory Results Last 24 Hours Test 04/16/17 20:40 04/17/17 06:32 04/17/17 07:38 04/17/17 11:45 Bedside Glucose 134 mg/dl 105 mg/dl 200 mg/dl White Blood Count 7.78 K/uL Red Blood Count 4.24 M/uL Hemoglobin 11.0 g/dL Hematocrit 35.5 % Mean Corpuscular Volume 83.7 fL Mean Corpuscular Hemoglobin 25.9 pg Mean Corpuscular Hemoglobin Concent 31.0 g/dl Platelet Count 334 K/uL Mean Platelet Volume 8.4 fL Neutrophils (%) (Auto) 58.9 % Lymphocytes (%) (Auto) 22.2 % Monocytes (%) (Auto) 9.9 % Eosinophils (%) (Auto) 6.7 % Basophils (%) (Auto) 0.6 % Neutrophils # (Auto) 4.58 K/uL Lymphocytes # (Auto) 1.73 K/uL Monocytes # (Auto) 0.77 K/uL Eosinophils # (Auto) 0.52 K/uL Basophils # (Auto) 0.05 K/uL RDW Standard Deviation 63.0 fL RDW Coefficient of Variation 20.3 % Immature Granulocyte % (Auto) 1.7 % Immature Granulocyte # (Auto) 0.13 K/uL Hypersegmented Polys 1+ Anisocytosis PRESENT Sodium Level 136 mmol/L Potassium Level 2.7 mmol/L Chloride Level 101 mmol/L Carbon Dioxide Level 27 mmol/L Anion Gap 8.0 mmol/L Blood Urea Nitrogen 33 mg/dl Creatinine 1.40 mg/dl Est Creatinine Clear Calc Drug Dose 32.4 ml/min Estimated GFR () 40.7 Estimated GFR (Non- 35.1 BUN/Creatinine Ratio 23.8 Random Glucose 107 mg/dl Calcium Level 9.3 mg/dl Phosphorus Level 2.7 mg/dl Magnesium Level 2.9 mg/dl Test 04/17/17 16:24 04/17/17 17:01 Bedside Glucose 128 mg/dl Potassium Level 2.9 mmol/L Assessment and Plan 82-year-old female with a history of multiple medical problems presented to the emergency department with altered mental status. She was from [facility] and was admitted on 04/15/2017 Metabolic encephalopathy with Altered mental status, upon admission, totally resolved Possible sepsis probably secondary to Klebsiella UTI and possible pneumonia Resent gram-positive bacilli from a urine that was done on 04/12. Failed doxycycline outpatient treatment Was on Broad-spectrum antibiotic coverage with vancomycin, Zosyn, renally dosed Change to Keflex by mouth only for possible Klebsiella UTI The best will be azithromycin for typical bacteria coverage, to consider azithromycin may cause prolonged QT and I will not order for now instead I am repeating chest x-ray to see if there is real pneumonia or not Discontinue Levaquin because of prolonged QT Snares walker negative for MRSA Has DC IV antibiotics and is starting Keflex renal dose 500 every 12 Acute on chronic renal failure likely secondary to dehydration, likely contributed to mental status change, Significant improves after IV fluid Has been on IV fluid, will discontinue, just don't want to have volume overload -follow PRP -renally dose meds -Continue Temporarily hold diuretics. Patient is typically on Lasix 80 mg twice daily, metalozone 2.5 mg daily Elevated troponin-likely secondary to acute illness, demanding , or, from acute kidney failure Magnetic Prospecting Supervisor saw patient, will follow-up -Continue current cardiac meds: Per waistline joiner lockstitch, patient has known coronary artery disease and in the past has had elevated troponins consistent with demand ischemia. it is unlikely that this represents an acute myocardial infarction. Is on Aggrenox twice daily, will add aspirin per recommendation cont Imdur 90 mg daily, simvastatin 40 mg daily Hypokalemia, no significant even replaced Order scheduled potassium and follow up Oral candidiasis, Diflucan 100 mg daily 7 days diabetes mellitus, pharmacy consulted Altered mental status with frequent fall, will add head CT stat Spine fx from falls -continue lidoderm patch -PT/OT Depression -Continue Lexapro 20 mg daily Chronic steroid use for RA -increase prednisone from 5 mg to 10 mg daily for stress dosing DVT prophylaxis -Heparin 5000 u subQ BID -TEDS, SCDs CODE STATUS -LEVEL V DO NO RESUSCITATE Possible discharge back to [facility] over the weekend Continued [facility] stay due to: multiple IV medications needed Discharge planning: longterm facility
[2017-04-17] MEDS: POTASSIUM CHLORIDE 10 MEQ TABCR PO SCH (21:09)
[2017-04-17] MEDS: CEPHALEXIN MONOHYDRATE 500 MG CAP PO SCH (21:09)
[2017-04-17] MEDS: PANTOprazole SOD 40 MG TAB PO SCH (21:10)
[2017-04-17] MEDS: SIMVASTATIN 40 MG TAB PO SCH (21:10)
[2017-04-17] MEDS: INSULIN GLARGINE SOLOSTAR 100 UNITS/ML 3 ML PEN SC SCH (21:21)
[2017-04-18] VITALS (7 sets, daily range): BP systolic 110–128; BP diastolic 66–76; PULSE 66–82; TEMP 36.4–36.8; O2SAT 97–99
[2017-04-18] MEDS: LIDODERM (LIDOCAINE) PATCH 5% TD SCH (07:51)
[2017-04-18] MEDS: ACETAMINOPHEN 325 MG TAB PO PRN ×2 (07:51→20:35)
[2017-04-18] MEDS: FLUCONAZOLE 100 MG TAB PO SCH (08:19)
[2017-04-18] MEDS: POTASSIUM CHLORIDE 10 MEQ TABCR PO SCH ×2 (08:19→20:39)
[2017-04-18] MEDS: TOPIRAMATE 100 MG TAB PO SCH ×2 (08:20→20:40)
[2017-04-18] MEDS: CEPHALEXIN MONOHYDRATE 500 MG CAP PO SCH ×2 (08:20→20:37)
[2017-04-18] MEDS: RANOLAZINE 500 MG ER TAB PO SCH ×2 (08:20→20:39)
[2017-04-18] MEDS: DIPYRIDAMOLE/ASPIRIN CAP PO SCH ×2 (08:23→20:38)
[2017-04-18] MEDS: FERROUS SULFATE 325 MG TAB PO SCH ×2 (08:23→17:36)
[2017-04-18] MEDS: ISOSORBIDE MONONITRATE 30 MG TABCR PO SCH (08:23)
[2017-04-18] MEDS: DOCUSATE SODIUM 100 MG CAP PO SCH ×2 (08:23→20:38)
[2017-04-18] MEDS: ESCITALOPRAM OXALATE 20 MG TAB PO SCH (08:24)
[2017-04-18] MEDS: HEPARIN SOD 5000 UNIT/0.5 ML CARP SQ SCH ×2 (08:29→20:51)
[2017-04-18] MEDS: INSULIN ASPART 100 UNITS/ML 3 ML PEN SC SCH ×4 (08:29→20:50)
[2017-04-18] MEDS ORDERED: ASPIRIN 81 MG ECTAB PO STA (10:00)
--- NOTE | 2017-04-18 10:03 | Cardiology Follow-Up ---
Subjective Date of Service: Apr 18, 2017. Pt evaluation today including: conversation w/ patient, physical exam, lab review, review of studies, review of inpatient medication list History of Present Illness This is a 81-year-old woman who has a history of diabetes mellitus, chronic kidney disease, hypertension, hypercholesterolemia, paroxysmal atrial fibrillation and known coronary artery disease. She has had exertional chest discomfort for a number of years, she underwent catheterization in November 2014 where she had significant coronary disease identified although her left ventricular ejection fraction was normal. She was referred to [facility] for CT surgery, however she was at high risk for bypass surgery and she refused surgery I believe. In any case her surgery was not performed and she has been followed with medical therapy. She presents now with an altered mental status and increased confusion, and room and treated for a UTI and pneumonia for a number of days. She is much more alert and conversational today, she is oriented 3. She specifically denies any cardiovascular symptoms. She denies having chest pain currently, denies having chest pain prior to admission and denies shortness of breath or palpitations. Social History Smoking Status: Former Smoker History of Alcohol Use: No Review of Systems Respiratory: No cough, No sputum, No wheezing, No shortness of breath, No dyspnea on exertion, No dyspnea at rest, No hemoptysis Cardiac: No chest pain, No orthopnea, No PND, No edema, No claudication, No palpitations Medications Cardiovascular: Item Value Date Time Potassium Chloride 20 meq 04/17/17 2100 (Klor-Con M10) BID/PO 04/18/17 0819 Isosorbide 90 mg 04/15/17 0900 Mononitrate QAM/PO 04/18/17 0823 (Imdur Ext Rel Tab) Heparin Sodium 5,000 unit 04/14/17 2100 (Porcine) Q12/SQ 04/18/17 0829 (Heparin Sq 5000 Unit/0.5ml) Dipyridamole/ 1 cap 04/14/17 2100 Aspirin BID/PO 04/18/17 0823 (Aggrenox 200MG/ 25MG Cap) Simvastatin 40 mg 04/14/17 2100 (Zocor Tab) HS/PO 04/17/17 2110 Ranolazine 1,000 mg 04/14/17 2100 (Ranexa ER Tab) BID/PO 04/18/17 0820 Objective Vital Signs Past 12 Hours Date Time Temp Pulse Resp B/P (MAP) Pulse Ox O2 Delivery O2 Flow Rate FiO2 04/18/17 07:59 36.7 78 18 116/73 (87) 97 Room Air 04/18/17 04:30 36.4 79 18 128/76 (93) 98 Room Air 04/18/17 04:00 Room Air 04/18/17 00:00 Room Air 04/17/17 23:36 36.6 56 20 93/62 (72) 91 Room Air Last Recorded Weight-Kilograms: 78.200 Physical Exam Constitutional: General Apperance: heathly-appearing, well-nourished Level of Distress: NAD Lungs: Respiratory effort: no dyspnea, good air movement Auscultation: breath sounds normal, no wheezing Cardiovascular: Heart Auscultation: RRR, no murmurs, no rubs, no gallops Peripheral Pulses: Bruits: none appreciated Extremities: no edema Data Laboratory Results: Last 24 Hours Test 04/17/17 11:45 04/17/17 16:24 04/17/17 17:01 04/17/17 20:06 Bedside Glucose 200 mg/dl 128 mg/dl 152 mg/dl Potassium Level 2.9 mmol/L Test 04/18/17 07:44 Bedside Glucose 125 mg/dl Telemetry reviewed: Sinus rhythm, rate well controlled Assessment and Plan #1. Elevated troponin: She has known coronary artery disease and in the past has had elevated troponins consistent with demand ischemia. I believe her current elevation of troponin is probably the same, it started higher and trended down over 3 measurements and it is unlikely that this represents an acute myocardial infarction. #2. Coronary disease: She has known coronary artery disease, based on her records from the office her symptoms were dyspnea on exertion not chest pain. We 've no objective evidence of progression of disease since her last catheterization where intervention was not felt to be the best option and that probably still remains. I don't think we should consider catheterization, certainly not now. She is on a statin, and she is on Aggrenox but that is only 25 mg of aspirin (50 mg daily). I will add 81 mg aspirin to her regimen. Thank you for allowing me to participate in her care.
--- NOTE | 2017-04-18 14:42 | Progress Note ---
Subjective Date of Service: Apr 18, 2017. Subjective Pt evaluation today including: conversation w/ patient, conversation w/ family , physical exam, chart review, lab review, review of studies, review of inpatient medication list Doing okay, eating and drinking fair, no complaining Problem List Medical Problems: (1) Acute head injury Status: Acute (2) Altered mental status Status: Acute (3) Back pain Status: Acute (4) Back pain Status: Acute (5) Blind right eye Status: Chronic (6) Bruising Status: Acute (7) CHF (congestive heart failure) Status: Acute (8) Compression fracture Status: Acute (9) Contusion of right shoulder Status: Acute (10) Depression Status: Chronic (11) Depression Status: Acute (12) Elevated serum creatinine Status: Acute (13) Fall Status: Acute (14) Fall Status: Acute (15) Fecal retention Status: Acute (16) Fracture of fifth metacarpal bone of right hand Status: Acute (17) Fracture of thoracic transverse process Status: Acute (18) Generalized weakness Status: Acute (19) Headache Status: Acute (20) Hypokalemia Status: Acute (21) Intractable back pain Status: Acute (22) Intractable back pain Status: Acute (23) Intractable back pain Status: Acute (24) Left sided chest pain Status: Acute (25) Lumbar compression fracture Status: Acute (26) Lumbar transverse process fracture Status: Acute (27) Mild dehydration Status: Acute (28) Multiple fractures of thoracic spine Status: Acute (29) Multiple fractures of thoracic spine Status: Acute (30) Multiple fractures of thoracic spine Status: Acute (31) Multiple rib fractures Status: Acute (32) Peripheral edema Status: Acute (33) Pleural effusion Status: Acute (34) Pneumonia Status: Acute (35) Precordial chest pain Status: Acute (36) Right facial numbness Status: Acute (37) Right-sided chest wall pain Status: Acute (38) Suicide attempt by acetaminophen overdose Status: Acute (39) Tylenol overdose Status: Acute (40) Unstable angina Status: Acute (41) Urinary retention Status: Acute (42) Urinary retention Status: Acute Review of Systems Constitutional: No fever, No chills, No sweats, No weight loss, No weakness, No fatigue, No problem reported Eyes: No worsening of vision, No eye pain, No redness, No discharge, No diplopia ENT: No hearing loss, No unusual epistaxis, No nasal symptoms, No sore throat, No tinnitus, No dental problems, No trouble swallowing Respiratory: No cough, No sputum, No wheezing, No shortness of breath, No dyspnea on exertion, No dyspnea at rest, No hemoptysis Cardiac: No chest pain, No orthopnea, No PND, No edema, No claudication, No palpitations Abdomen: No pain, No nausea, No vomiting, No diarrhea, No constipation Musculoskeletal: No joint pain, No muscle pain, No swelling, No calf pain Female : No dysuria, No urinary frequency, No hematuria, No incontinence, No abnormal vaginal bleeding, No vaginal discharge Neurologic: No memory loss, No paralysis, No weakness, No numbness/tingling, No vertigo, No balance problems Psychiatric: No depression symptoms, No anhedonism, No anxiety, No insomnia, No substance abuse Heme: No abnormal bleeding/bruising, No clotting problems, No swollen lymph nodes, No night sweats Endo: No fatigue, No excessive thirst, No excessive urination Skin: No rash, No itch, No new/changing skin lesions, No color change, No bleeding Objective Vital Signs Date Time Temp Pulse Resp B/P (MAP) Pulse Ox O2 Delivery O2 Flow Rate FiO2 04/18/17 11:35 36.8 66 18 110/66 (81) 98 Room Air 04/18/17 08:00 97 Room Air 04/18/17 07:59 36.7 78 18 116/73 (87) 97 Room Air 04/18/17 04:30 36.4 79 18 128/76 (93) 98 Room Air 04/18/17 04:00 Room Air 04/18/17 00:00 Room Air 04/17/17 23:36 36.6 56 20 93/62 (72) 91 Room Air 04/17/17 20:00 Room Air 04/17/17 19:29 36.2 77 18 106/54 (71) 97 Room Air 04/17/17 16:00 Room Air 04/17/17 15:08 36.5 77 18 117/69 (85) 94 Room Air Physical Exam General Appearance: WD/WN, no apparent distress, + pertinent finding (pleasant) Eyes: normal inspection, PERRL, EOMI, sclerae normal ENT: normal ENT inspection, hearing grossly normal, pharynx normal Neck: supple, no adenopathy, thyroid normal, no JVD, no carotid bruits, trachea midline Respiratory/Chest: chest non-tender, lungs clear, normal breath sounds, no respiratory distress, no accessory muscle use Cardiovascular: regular rate, rhythm, no edema, no gallop, no JVD, no murmur Abdomen: normal bowel sounds, non tender, soft, no organomegaly, no pulsatile mass Extremities: normal range of motion, non-tender, normal inspection, no pedal edema, no calf tenderness, normal capillary refill, pelvis stable Neurologic/Psychiatric: senior mechanical development 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 She was from [facility] and was admitted on 04/15/2017 Metabolic encephalopathy with Altered mental status, upon admission, totally resolved Possible sepsis probably secondary to Klebsiella UTI and possible pneumonia Resent gram-positive bacilli from a urine that was done on 04/12. Failed doxycycline outpatient treatment Was on Broad-spectrum antibiotic coverage with vancomycin, Zosyn, renally dosed Change to Keflex by mouth only for possible Klebsiella UTI The best will be azithromycin for typical bacteria coverage, to consider azithromycin may cause prolonged QT and I will not order for now instead I am repeating chest x-ray to see if there is real pneumonia or not Discontinue Levaquin because of prolonged QT Snares walker negative for MRSA Has DC IV antibiotics and is starting Keflex renal dose 500 every 12 Acute on chronic renal failure likely secondary to dehydration, likely contributed to mental status change, Significant improves after IV fluid Has been on IV fluid, will discontinue, just don't want to have volume overload -follow PRP -renally dose meds -Continue Temporarily hold diuretics. Patient is typically on Lasix 80 mg twice daily, metalozone 2.5 mg daily Elevated troponin-likely secondary to acute illness, demanding , or, from acute kidney failure Showplace Manager saw patient, will follow-up -Continue current cardiac meds: Per infection control practitioner, patient has known coronary artery disease and in the past has had elevated troponins consistent with demand ischemia. it is unlikely that this represents an acute myocardial infarction. Is on Aggrenox twice daily, will add aspirin per recommendation cont Imdur 90 mg daily, simvastatin 40 mg daily Hypokalemia, replaced and has been follow-up Order scheduled potassium and follow up Oral candidiasis, Diflucan 100 mg daily 7 days diabetes mellitus, pharmacy consulted Altered mental status with frequent fall, will add head CT stat Spine fx from falls -continue lidoderm patch -PT/OT Depression -Continue Lexapro 20 mg daily Chronic steroid use for RA -increase prednisone from 5 mg to 10 mg daily for stress dosing DVT prophylaxis -Heparin 5000 u subQ BID -TEDS, SCDs CODE STATUS -LEVEL V DO NO RESUSCITATE Possible discharge back to [facility] tomorrow Continued [facility] stay due to: multiple IV medications needed Discharge planning: [facility] facility
[2017-04-18 17:28] LABS: CALCIUM 9.1 mg/dl (8.5-10.1); CREATININE 1.5 mg/dl (0.60-1.20); POTASSIUM 4.1 mmol/L (3.5-5.1)
[2017-04-18] MEDS: PANTOprazole SOD 40 MG TAB PO SCH (20:39)
[2017-04-18] MEDS: SIMVASTATIN 40 MG TAB PO SCH (20:40)
[2017-04-18] MEDS: INSULIN GLARGINE SOLOSTAR 100 UNITS/ML 3 ML PEN SC SCH (20:50)
[2017-04-19 04:27] VITALS: BP 115/71; PULSE 74; TEMP 36.5; O2SAT 98
[2017-04-19] MEDS: ACETAMINOPHEN 325 MG TAB PO PRN (05:01)
[2017-04-19 07:14] LABS: BUN/CREATININE RATIO 14.8 (10-20); CALCIUM 9.7 mg/dl (8.5-10.1); CREATININE 1.4 mg/dl (0.60-1.20); MAGNESIUM 2.5 mg/dl (1.8-2.4); POTASSIUM 3.5 mmol/L (3.5-5.1)
[2017-04-19 07:31] VITALS: BP 119/73; PULSE 73; TEMP 36.5; O2SAT 96
[2017-04-19] MEDS: DOCUSATE SODIUM 100 MG CAP PO SCH (09:00)
[2017-04-19] MEDS ORDERED: ASPIRIN 81 MG ECTAB PO SCH (09:00)
[2017-04-19] MEDS: ESCITALOPRAM OXALATE 20 MG TAB PO SCH (09:21)
[2017-04-19] MEDS: DIPYRIDAMOLE/ASPIRIN CAP PO SCH (09:21)
[2017-04-19] MEDS: POTASSIUM CHLORIDE 10 MEQ TABCR PO SCH (09:22)
[2017-04-19] MEDS: TOPIRAMATE 100 MG TAB PO SCH (09:23)
[2017-04-19] MEDS: RANOLAZINE 500 MG ER TAB PO SCH (09:23)
[2017-04-19] MEDS: FLUCONAZOLE 100 MG TAB PO SCH (09:23)
[2017-04-19] MEDS: FERROUS SULFATE 325 MG TAB PO SCH ×2 (09:23→17:00)
[2017-04-19] MEDS: CEPHALEXIN MONOHYDRATE 500 MG CAP PO SCH (09:24)
[2017-04-19] MEDS: ISOSORBIDE MONONITRATE 30 MG TABCR PO SCH (09:24)
[2017-04-19] MEDS: LIDODERM (LIDOCAINE) PATCH 5% TD SCH (09:24)
[2017-04-19] MEDS: INSULIN ASPART 100 UNITS/ML 3 ML PEN SC SCH ×3 (09:33→16:30)
[2017-04-19] MEDS: HEPARIN SOD 5000 UNIT/0.5 ML CARP SQ SCH (09:43)
[2017-04-19 11:11] VITALS: BP 139/83; PULSE 78; TEMP 36.4; O2SAT 100
[2017-04-19] MEDS ORDERED: DFL100 PO (15:04)
[2017-04-19] MEDS ORDERED: KFL500 PO (15:04)
[2017-04-19] MEDS ORDERED: ASPEC81 PO (15:04)
--- NOTE | 2017-04-19 15:09 | Discharge Instructions ---
Discharge Instructions Date of Service Apr 19, 2017. Admission Reason for Admission: Sepsis Discharge Discharge Diagnosis / Problem: UTI, encephalopthy Discharge Goals Goal(s): Decrease discomfort, Improve function, Increase independence, Improve disease control, Improve nutritional status, Learn about illness, Diagnostic testing, Therapeutic intervention, Prevent Disease Progression, Specific goals Activity Recommendations Activity Level: OOB In Chair Therapies: Physical Therapy, Occupational Therapy . Additional Information Patient informed of condition: Yes Advance Directives: Yes DNR: Yes Level of Care: Skilled Communicable Disease: No Prognosis: Other (guarded) Boswell Catheter: No Instructions / Follow-Up Instructions / Follow-Up you have Metabolic encephalopathy with Altered mental status, you have possible sepsis probably secondary to Klebsiella UTI and possible pneumonia you have Acute on chronic renal failure likely secondary to dehydration, your Lasix 80 mg twice daily, metalozone 2.5 mg daily are on hold, you need to follow up with pcp in week and restarted if appropriated we add aspirin for your medicine list you have hypokalemia, you need to have labs of bmp checked in 2 days, and report the result to your pcp - you need to follow up with your primary care physician in 1 week, - take medication as instructed, never overdose or any misuse, or take with alcohol, because misuse of medicine may cause organ damage or , call your primary care physician if have questions of medicaitons. - call your primary care physician OR go to local emergency room if has any fever/chill, chest pain, shortness of breathing, nausea/vomiting/abdominal pain , facial droop/slurry speech/local weakness, or if has any questions. - fall precaution - diet as instructed - you need to follow up with your subspecialist - you should understand that it is important to follow up the above instruction , and "not following the above instruction" may cause delayed or missed care of your medical conditions which may cause permanent organ damage and even . Current Hospital Diet Patient's current hospital diet: Diabetes Type 2 Diet, AHA Diet (Heart Healthy) Discharge Diet Recommended Diet: Diabetes Type 2 Diet Pending Studies Studies pending at discharge: no Physician Orders On Transfer POLST Discussion: without POLST completion Laboratory Results Hemoglobin A1c Test 04/05/17 03:30 Range/Units Estimated Average Glucose 174 mg/dl Hemoglobin A1c 7.7 H 4.5-5.6 % Lipid Panel Test 02/19/17 05:10 Range/Units Triglycerides Level 354 H 0-150 mg/dl Cholesterol Level 211 H 0-200 mg/dl HDL Cholesterol 44 mg/dl Cholesterol/HDL Ratio 4.8 LDL Cholesterol, Calculated 96 mg/dl Medical Emergencies . Who to Call and When: Medical Emergencies: If at any time you feel your situation is an emergency, please call 911 immediately. . Non-Emergent Contact Non-Emergency issues call your: Primary Care Provider . . "Provider Documentation" section prepared by Jimmy Mills. . Core Measure Problem Core Measures: None
--- NOTE | 2017-04-19 15:22 | Discharge Summary ---
Discharge Summary Date of Service Apr 19, 2017. Discharge Summary Admission Date: Apr 14, 2017 at 14:24 Discharge Date: Apr 19, 2017 Discharge Disposition: [facility] facility Principal Diagnosis: Metabolic encephalopathy Problems/Secondary Diagnoses: sepsis probably secondary to Klebsiella UTI and possible pneumonia Immunizations: Have You Had Influenza Vaccine: No History of Tetanus Vaccine?: utd History of Pneumococcal: Yes Pneumococcal Date: Sep 24, 2010 History of Hepatitis B Vaccine: No Procedures: No Consultations: Garbage Collection Supervisor Medication Reconciliation New Medications: Aspirin (Aspirin EC Low Dose) 81 Mg Ectab 81 MG PO QAM for 30 Days Cephalexin Monohydrate (Cephalexin) 500 Mg Cap 500 MG PO BID for 6 Days, #12 CAP Fluconazole (Fluconazole) 100 Mg Tab 100 MG PO QAM for 4 Days, #4 TAB Continued Medications: Acetaminophen (Tylenol) 325 Mg Tab 650 MG PO Q6 PRN for Pain DO NOT EXCEED 3GM APAP/24HR Acetaminophen (Tylenol) 325 Mg Tab 650 MG PO Q6 PRN for TEMP>100 NOT TO EXCEED 3GM APAP/24HR Albuterol Hfa (Ventolin Hfa) 200 Puffs/48143 Mcg Aers 1-2 PUFFS INH Q4 PRN for Shortness of Breath, #1 INHALER Alendronate Sodium (Fosamax) 70 Mg Tab 70 MG PO WK, #4 TAKE ON SATURDAYS. TAKE 30 MIN PRIOR TO FOOD/OTHER MEDS. REMAIN UPRIGHT FOR AT LEAST 30 MINS. Bisacodyl (Bisac-Evac) 10 Mg Sup 1 SUPP NM UD PRN for NO BM X 3 DAYS Calcium Carbonate-Vitamin D (Oscal 500/200 D-3) 1 Tab Tab 1 TAB PO BIDM Dipyridamole/Aspirin (Aggrenox 25-200 mg) 1 Cap Cap 1 CAP PO BID, 5 Refills Docusate Sodium (Colace) 100 Mg Cap 100 MG PO BID Escitalopram Oxalate (Lexapro) 20 Mg Tab 20 MG PO DAILY, TAB Ferrous Sulfate (Ferrous Sulfate) 325 Mg Tab 325 MG PO BIDM for 30 Days, #30 TAB Uxbnaoil-[place]yy[place]umhoqvm-[place] (Artificial Tears) 1 Donavan Donavan 2 DROPS OPB QS Insulin Glargine (Lantus Solostar) 100 Unit/Ml Inj 15 UNITS SC HS Isosorbide Mononitrate (Isosorbide Mononitrate ER) 30 Mg Tabcr 90 MG PO QAM 3 TABLET DOSE Lidocaine (Lidoderm Patch 5%) 1 Ea Tdsy 1 PATCH PO ONAMOFFPM, #30 PATCH Magnesium Hydroxide (Milk Of Magnesia) 30 Ml Susp 30 ML PO UD PRN for NO BM X 3 DAYS, ML Pantoprazole (Protonix) 40 Mg Tab 40 MG PO QPM Polyethylene Glycol 3350 (Miralax) 1 Pow Pow 17 GM PO DAILY Prednisone (Prednisone) 5 Mg Tab 5 MG PO QAM Ranolazine (Ranexa) 1,000 Mg Tab 1000 MG PO BID, 3 Refills Simethicone (Mi-Acid Gas Relief) 80 Mg Chew 80 MG PO Q6H PRN for Bloating, #30 TAB Simvastatin (Zocor) 40 Mg Tab 40 MG PO HS, TAB Sodium Phosphate/Biphosphate (Fleet Enema) Rakel 1 EA NM UD PRN for NO BM X 3 DAYS, BTL Topiramate (Topamax) 200 Mg Tab 200 MG PO BID, TAB Discontinued Medications: Furosemide (Lasix) 80 Mg Tab 80 MG PO BID, TAB Metolazone (Zaroxolyn) 2.5 Mg Tab 2.5 MG PO MWF, TAB Discharge Exam Doing good, no fever and chill, sitting up in chair, no complaining, eating and voiding Good Review of Systems: Constitutional: No fever, No chills, No sweats, No weight loss, No weakness , No fatigue, No problem reported ENT: No hearing loss, No unusual epistaxis, No nasal symptoms, No sore throat, No tinnitus, No dental problems, No trouble swallowing, No problem reported Cardiovascular: No chest pain, No orthopnea, No PND, No edema, No claudication, No palpitations, No problem reported Abdomen: No pain, No nausea, No vomiting, No diarrhea, No constipation, No GI bleeding, No problem reported Genitourinary - Female: No dysuria, No urinary frequency, No urinary urgency , No urinary incontinence, No urinary retention, No hematuria, No dysmenorrhea, No menorrhagia, No metrorrhagia, No rash, No vaginal bleeding, No vaginal discharge, No vaginal itching, No vulvodynia, No , No problem reported Neurologic: No memory loss, No paralysis, No weakness, No numbness/tingling , No vertigo, No balance problems, No problem reported Psychiatric: No depression symptoms, No anhedonism, No anxiety, No insomnia , No substance abuse, No problem reported Endocrine: No fatigue, No excessive thirst, No excessive urination, No problem reported Hematologic / Lymphatic: No abnormal bleeding/bruising, No clotting problems , No swollen lymph nodes, No night sweats, No problem reported Integumentary: No rash, No itch, No new/changing skin lesions, No color change, No bleeding, No problem reported Physical Exam: General Appearance: WD/WN, no apparent distress ENT: normal ENT inspection, hearing grossly normal, TMs normal Neck: thyroid normal Respiratory/Chest: chest non-tender, normal breath sounds, no respiratory distress, no accessory muscle use, + decreased breath sounds Cardiovascular: regular rate, rhythm, no edema, no gallop, no JVD Abdomen / GI: normal bowel sounds, non tender, soft, no organomegaly, no pulsatile mass Extremities: normal inspection, no calf tenderness, normal capillary refill , no pedal edema, + swelling (1-2+, is not new) Neurologic/Psychiatric: work station support specialist II-XII nml as tested, no motor/sensory deficits , alert, normal mood/affect, normal reflexes Skin: normal color, warm/dry Hospital Course 82-year-old female with a history of multiple medical problems presented to the emergency department with altered mental status. She was from [facility] and was admitted on 04/15/2017 Metabolic encephalopathy with Altered mental status, upon admission, totally resolved Possible sepsis probably secondary to Klebsiella UTI and possible from clinical pneumonia Resent gram-positive bacilli from a urine that was done on 04/12. Failed doxycycline outpatient treatment Was on Broad-spectrum antibiotic coverage with vancomycin, Zosyn, renally dosed Repeated chest x-ray no obvious pneumonia Change to Keflex by mouth only for possible Klebsiella UTI The best will be azithromycin for typical bacteria coverage, to consider azithromycin may cause prolonged QT and I will not order for now Discontinue Levaquin because of prolonged QT nose smear negative for MRSA Has DC IV antibiotics and is starting Keflex renal dose 500 every 12, will continue completed full course of antibiotics treatment Acute on chronic renal failure likely secondary to dehydration, likely contributed to mental status change, Significant improves after IV fluid Has been on IV fluid, discontinue, just don't want to have volume overload -follow PRP -renally dose meds -Continue Temporarily hold diuretics because of recent acute on chronic kidney failure , she was on Lasix 80 mg twice daily, metalozone 2.5 mg daily, pCP please follow-up, restart this medicine if appropriate, has ordered lab to be checked in 2 days, PCP please follow-up Elevated troponin-likely secondary to acute illness, demanding , or, from acute kidney failure Garbage Collection Supervisor saw patient, will follow-up -Continue current cardiac meds: Per geek squad agent, patient has known coronary artery disease and in the past has had elevated troponins consistent with demand ischemia. it is unlikely that this represents an acute myocardial infarction. Is on Aggrenox twice daily, will add aspirin per recommendation cont Imdur 90 mg daily, simvastatin 40 mg daily Hypokalemia, replaced and has been follow-up Order scheduled potassium and follow up Oral candidiasis, Diflucan 100 mg daily 7 days diabetes mellitus, pharmacy consulted Altered mental status with frequent fall, will add head CT stat Spine fx from falls -continue lidoderm patch -PT/OT Depression -Continue Lexapro 20 mg daily Chronic steroid use for RA -increase prednisone from 5 mg to 10 mg daily for stress dosing DVT prophylaxis -Heparin 5000 u subQ BID -TEDS, SCDs CODE STATUS -LEVEL V DO NO RESUSCITATE Patient discharged home today in stable condition Instructions / Follow-Up you have Metabolic encephalopathy with Altered mental status, you have possible sepsis probably secondary to Klebsiella UTI and possible pneumonia you have Acute on chronic renal failure likely secondary to dehydration, your Lasix 80 mg twice daily, metalozone 2.5 mg daily are on hold, you need to follow up with pcp in week and restarted if appropriated we add aspirin for your medicine list you have hypokalemia, you need to have labs of bmp checked in 2 days, and report the result to your pcp - you need to follow up with your primary care physician in 1 week, - take medication as instructed, never overdose or any misuse, or take with alcohol, because misuse of medicine may cause organ damage or , call your primary care physician if have questions of medicaitons. - call your primary care physician OR go to local emergency room if has any fever/chill, chest pain, shortness of breathing, nausea/vomiting/abdominal pain , facial droop/slurry speech/local weakness, or if has any questions. - fall precaution - diet as instructed - you need to follow up with your subspecialist - you should understand that it is important to follow up the above instruction , and "not following the above instruction" may cause delayed or missed care of your medical conditions which may cause permanent organ damage and even . Total Time Spent: Greater than 30 minutes This includes examination of the patient, discharge planning, medication reconciliation, and communication with other providers. Discharge Instructions Please refer to the electronic Patient Visit Report (Discharge Instructions) for additional information. Additional Copies To Anayeli Heath; Mitch Viveros M.D.
[2017-04-19 15:27] VITALS: BP 118/70; PULSE 76; TEMP 37; O2SAT 96
[2017-04-19 15:39] VITALS: BP 118/70; PULSE 76; TEMP 37; O2SAT 96
== END 2017-04-19 17:25 | DRG 871 ==
LOC: EDBD 12:23 → C.EDB 12:24 → C.MED 14:24 → EDBEDREQ 14:32 → ENRESERV 14:37
PROVIDERS: ADMIT Hospitalist; ATTEND Hospitalist
DX: A41.9 Sepsis, unspecified organism (principal); G93.41 Metabolic encephalopathy; J18.9 Pneumonia, unspecified organism; N39.0 Urinary tract infection, site not specified; N17.9 Acute kidney failure, unspecified; N18.5 Chronic kidney disease, stage 5; I24.8 Other forms of acute ischemic heart disease; I69.351 Hemiplegia and hemiparesis following cerebral infarction affecting right dominant side; Q61.9 Cystic kidney disease, unspecified; I12.0 Hypertensive chronic kidney disease with stage 5 chronic kidney disease or end stage renal disease; I25.2 Old myocardial infarction; R79.89 Other specified abnormal findings of blood chemistry; E86.0 Dehydration; F32.9 Major depressive disorder, single episode, unspecified; Z66 Do not resuscitate; M19.90 Unspecified osteoarthritis, unspecified site; I48.91 Unspecified atrial fibrillation; E11.22 Type 2 diabetes mellitus with diabetic chronic kidney disease; E78.5 Hyperlipidemia, unspecified; K21.9 Gastro-esophageal reflux disease without esophagitis; B96.1 Klebsiella pneumoniae [K. pneumoniae] as the cause of diseases classified elsewhere; E87.6 Hypokalemia; I25.10 Atherosclerotic heart disease of native coronary artery without angina pectoris; G89.29 Other chronic pain; M06.9 Rheumatoid arthritis, unspecified; F01.50 Vascular dementia, unspecified severity, without behavioral disturbance, psychotic disturbance, mood disturbance, and anxiety; I67.9 Cerebrovascular disease, unspecified; H54.41 Blindness, right eye, normal vision left eye; K86.9 Disease of pancreas, unspecified; Z95.1 Presence of aortocoronary bypass graft; Z91.5 Personal history of self-harm; Z91.81 History of falling; Z87.891 Personal history of nicotine dependence; Z87.81 Personal history of (healed) traumatic fracture; Z79.83 Long term (current) use of bisphosphonates; Z79.01 Long term (current) use of anticoagulants; Z79.4 Long term (current) use of insulin; Z79.52 Long term (current) use of systemic steroids

== ENCOUNTER → 2017-04-14 | Outpatient (CLI) | payer OTHER ==
[~2017-04-14] MED LIST changes: +ASPEC81 PO; +BISA10SU7 PR; +DFL100 PO; +KFL500 PO; +MCRK20 PO; +METO2.5T PO; +MOML PO; +MRP15 PO; -NCY50 PO; +NF656 PO; -NTRGSL/4 UT; -POTA20TA13 PO; +SODIENE PR; -TAPE1TAB9 PO
[2017-04-14 08:50] LABS: BLOOD UREA NITROGEN 48 mg/dl (7-18); BUN/CREATININE RATIO 25.2 (10-20); CALCIUM 10.9 mg/dl (8.5-10.1); CARBON DIOXIDE 38 mmol/L (21-32); CHLORIDE 82 mmol/L (98-107); GLUCOSE 227 mg/dl (70-99); POTASSIUM 2.3 mmol/L (3.5-5.1); SODIUM 129 mmol/L (136-145)
== END ==
LOC: C.LABCC 07:49 → EDSTATUS 08:59
PROVIDERS: ATTEND Internal Medicine
DX: E87.6 Hypokalemia (principal)

== ENCOUNTER → 2017-04-20 | Outpatient (CLI) | payer OTHER ==
[~2017-04-20] MED LIST changes: +ASPEC81 PO; +DFL100 PO; -DIPH25CA65 PO; -FURO80TA63 PO; +KFL500 PO; -MCRK20 PO; -METO2.5T PO; -MRP15 PO
--- NOTE | 2017-04-20 11:37 | DIAGNOSTIC IMAGING REPORT ---
CT OF THE THORACIC SPINE WITHOUT CONTRAST CLINICAL HISTORY: Follow-up thoracic spine fracture. Back pain. COMPARISON STUDY: Thoracic spine CT April 04, 2017. TECHNIQUE: Axial images of the thoracic spine were obtained without IV contrast. Sagittal and coronal reconstructions were viewed. FINDINGS: A small right pleural effusion has decreased in size since CT of April 04, 2017. There are multiple subacute to chronic bilateral rib fractures. There is a healing fracture the left transverse process of L1. Fractures of C7, T8, T9, T10 and T12 as well as the inferior endplate of L1 are unchanged since CT of April 04, 2017. A horizontal subacute fracture through the inferior endplate of T6, T6-T7 disc space and superior endplate of T7 is unchanged since exam of April 04, 2017. No acute thoracic spine fracture is identified. There is extensive anterior osteophytosis. Central canal and neural foramen are suboptimally assessed by CT. There is mild dextroscoliosis of the thoracic spine. IMPRESSION: 1. No change in appearance of the subacute horizontal fracture centered on the T6-T7 disc space since exam of April 04, 2017. 2. Numerous old cervical, thoracic and lumbar spine compression fractures which are similar to exam of April 04, 2017. 3. Decrease in size of a small right pleural effusion. Electronically signed by: Cuate Denise M.D. 04/20/2017 11:36 AM Dictated Date/Time: 04/20/2017 11:18 AM
== END | disposition home or self-care (01) ==
LOC: C.CTS 10:40
PROVIDERS: ATTEND Orthopaedic Surgery Orthopaedic Surgery of the Spine
DX: S22.009A Unspecified fracture of unspecified thoracic vertebra, initial encounter for closed fracture (principal); X58.XXXA Exposure to other specified factors, initial encounter; J90 Pleural effusion, not elsewhere classified

== ENCOUNTER → 2017-05-28 | Day surgery (SDC) | payer OTHER ==
[~2017-05-28] VITALS: Ht 157.5 cm; Wt 81.7 kg
[2017-05-28 08:27] VITALS: BP 121/78; PULSE 68; TEMP 36.9; O2SAT 97; Ht 157.5 cm; Wt 81.7 kg
--- NOTE | 2017-05-28 08:36 | DIAGNOSTIC IMAGING REPORT ---
CHEST ONE VIEW PORTABLE CLINICAL HISTORY: 82 years-old Female presenting with effusion . TECHNIQUE: Portable upright AP view of the chest was obtained. COMPARISON: 04/16/2017. FINDINGS: Atherosclerosis of aortic arch. Lungs clear. Decreased blunting of the left costophrenic angle. Blunting of the left costophrenic angle noted. No pneumothorax. Degenerative changes of the thoracic spine. Upper abdomen normal. IMPRESSION: 1. Possible trace left effusion. No focal infiltrate. Resolution of right pleural fluid. Electronically signed by: Mahamed Telles M.D. 05/28/2017 8:35 AM Dictated Date/Time: 05/28/2017 8:34 AM
--- NOTE | 2017-05-28 08:39 | Discharge Instructions ---
Discharge Instructions Date of Service May 28, 2017. Visit Reason for Visit: Right Pleural Effusion Discharge Discharge Diagnosis / Problem: Resolved Right Pleural Effusion Discharge Goals Goal(s): Learn about illness Activity Recommendations Activity Limitations: resume your previous activity Lifting Limitations: none Anesthesia . Post Anesthesia Instructions: If you have had General Anesthesia or IV Sedation: * Do not drive today. * Resume driving when surgeon permits. * Do not make important decisions or sign legal documents today. * Call surgeon for: 1. Temperature elevations greater than 101 degrees F. 2. Uncontrollable pain. 3. Excessive bleeding. 4. Persistent nausea and vomiting. 5. Medication intolerance (nausea, vomiting or rash). * For nausea and vomiting use only clear liquids such as: tea, soda, bouillon until nausea subsides, then gradually increase diet as tolerated. * If you have any concerns or questions, call your surgeon's office. If physician is unavailable and it is an emergency, call 911 or go to the nearest emergency room. . Instructions / Follow-Up Instructions / Follow-Up 1. Follow up with your family physician as needed. 2. You do not need to see Dr. Gregory unless pleural effusion recurs Diet Recommendations Recommended Home Diet: resume previous diet Pending Studies Studies pending at discharge: no Medical Emergencies . Who to Call and When: Medical Emergencies: If at any time you feel your situation is an emergency, please call 911 immediately. . Non-Emergent Contact Non-Emergency issues call your: Primary Care Provider Call Non-Emergent contact if: you have a fever . . "Provider Documentation" section prepared by Juan Hsieh. .
--- NOTE | 2017-05-28 08:43 | Progress Note ---
Progress Note Date of Service May 28, 2017. Progress Note Portable CXR shows that pleural effusion is minimal to resolved. Bedside Ultrasound performed also revealing minimal to no pleural effusion. Due to these findings, thoracentesis was not attempted. Pt. stable for D/c ack to [facility]. Pt. to follow-up with staff at [facility] or PCP as directed/ needed. No need for formal appt. with Dr. Gregory unless pleural effusion recurs.
--- NOTE | 2017-05-28 09:59 | SURGERY PROGRESS NOTE ---
DATE: 05/28/2017 Mr. Hou was seen today. I met her in the office and she had a left pleural effusion on the CT scan about a month ago. It was not very impressive; however, we were asked to evaluate her for this. Unfortunately, when she came from the extended care facility, an x-ray did not accompany her. It is a bit of a logistical problem to get her from the extended care facility to the hospital. For this reason, I asked that she be seen in the medical treatment unit. We will perform a diagnostic thoracentesis as she is quite short of breath. We brought her in on the morning of 05/28/2017 and we did an x-ray. This shows improvement of her right pleural fluid and I really did not see any on the x-ray. We then did an ultrasound at bedside and I saw really no evidence of pleural fluid. We did not perform any procedures. I have discharged her from the office. I will see her back on a prn basis. SHARIF
== END | disposition home or self-care (01) ==
LOC: C.ACU 07:34
PROVIDERS: ATTEND Surgery
DX: J90 Pleural effusion, not elsewhere classified (principal); Z53.8 Procedure and treatment not carried out for other reasons

== ENCOUNTER → 2017-06-01 | Outpatient (CLI) | payer OTHER ==
[2017-06-01 18:38] LABS: URINE APPEARANCE CLEAR (CLEAR); URINE BILIRUBIN NEG (NEG); URINE COLOR YELLOW; URINE NITRITE NEG (NEG); URINE SPECIFIC GRAVITY 1.013 (1.000-1.030); UROBILINOGEN NEG (NEG); ZZURINE CULT IF INDIC CATH NO
[2017-06-01 18:55] LABS: MANUAL MICROSCOPIC REQUIRED? NO; REVIEW REQ? NO
== END ==
LOC: C.LABCC 17:48 → EDSTATUS 06-16 12:07
PROVIDERS: ATTEND Internal Medicine
DX: R41.82 Altered mental status, unspecified (principal); F22 Delusional disorders

== ENCOUNTER → 2017-06-26 | Outpatient (CLI) | payer OTHER ==
[~2017-06-26] MED LIST changes: +ALEN70TA2 PO; +ASPI-428 PO; +BISA10SU3 PR; +CIPR1TAB11 PO; +CLR10 PO; +DICL1GEL12 TP; +DULO-24 PO; +ERGO500037 PO; +FERR1TAB13 PO; +INSDGI SC; +ISOS30TA35 PO; +LIDO1PAD2 TOP; +MECL1CHW4 PO; +MOMLX PO; +PRLSR20 PO; +SIME80CH PO; +SODI1ENE PR
[2017-06-26 08:40] LABS: URINE APPEARANCE CLEAR (CLEAR); URINE BILIRUBIN NEG (NEG); URINE COLOR YELLOW; URINE NITRITE NEG (NEG); URINE PH 7.5 (4.5-7.5); URINE SPECIFIC GRAVITY 1.014 (1.000-1.030); UROBILINOGEN NEG (NEG)
[2017-06-26 08:47] LABS: MANUAL MICROSCOPIC REQUIRED? NO; REVIEW REQ? NO
== END | disposition home or self-care (01) ==
LOC: C.LABCC 08:01
PROVIDERS: ATTEND Internal Medicine
DX: R53.83 Other fatigue (principal)

== ENCOUNTER 2017-06-30 11:18 | Observation (INO) | payer OTHER ==
[~2017-06-30] VITALS: Ht 157.5 cm; Wt 84.6 kg
[~2017-06-30 11:18] MED LIST changes: -ALEN70TA2 PO; -ASPI-428 PO; -BISA10SU3 PR; -CIPR1TAB11 PO; -CLR10 PO; -DICL1GEL12 TP; -DULO-24 PO; -ERGO500037 PO; -FERR1TAB13 PO; -INSDGI SC; -ISOS30TA35 PO; -LIDO1PAD2 TOP; -MECL1CHW4 PO; -MOMLX PO; -PRLSR20 PO; -SIME80CH PO; -SODI1ENE PR
[2017-06-30] MEDS ORDERED: METOPROLOL TARTRATE 1 MG/ML VIAL IV STA ×4 (11:35→14:03)
[2017-06-30] MEDS ORDERED: SODIUM CHLORIDE 0.9% 1000ML 500 ML IV STA (11:35)
--- NOTE | 2017-06-30 11:52 | EMERGENCY ROOM VISIT NOTE ---
History Report prepared by Ara: Ghazal Tucker Under the Supervision of: Dr. Bobby Robles M.D. First contact with patient: 11:28 Chief Complaint: CARDIAC ASSESSMENT Stated Complaint: CARDIAC ASSESSMENT Nursing Triage Summary: triage note: Pt was seen by dr ponce office today and sent to ed for furthe eval of ekg showing svt. pt sent to ed for further eval. pt currently resides at [facility]. History of Present Illness The patient is an 82 year old female who presents to the Emergency Room with complaints of persistent chest pain that began prior to arrival. She currently rates her discomfort as a 9/10 in severity. The patient reports that she has a history of Atrial fibrillation, noting that she is on anticoagulants. She states that she was evaluated at Dr. Ponce's office this morning and was instructed to come to the emergency department for SVT. The patient states that she is experiencing a pounding headache. She states that she has been feeling poorly for the past week. The patient reports increased fatigue over the past several days. She states that she has a known urine infection, stating that she had a urine culture done recently. The patient reports chest pain as well. She states that she currently lives at [facility]. Source of History: patient Onset: prior to arrival Position: chest Symptom Intensity: 9/10 Timing: other (persistent) Associated Symptoms: + headache, + urinary symptoms, + fatigue Review of Systems See HPI for pertinent positives & negatives. A total of 10 systems reviewed and were otherwise negative. 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 (9) CEREBRAL THROMBOSIS W CEREBRAL INFARCTION (10) CEREBROVASC DISEASE NOS (11) Cervical spine fracture (12) Chest pain (13) Chest pain radiating to arm (14) CHRONIC KIDNEY DISEASE, STAGE V (15) Chronic pain (16) CVA (cerebral infarction) (17) CYSTIC KIDNEY DISEASE, UNSPECIFIED (18) Depression (19) Depression (20) Diabetes (21) Discharge planning issues (22) Elevated troponin (23) ESOPHAGEAL REFLUX (24) Fracture of thoracic spine (25) GI bleed (26) Head injury (27) Heart disease (28) HTN (hypertension) (29) Hyperlipidemia (30) HYPERPARATHYROIDISM, UNSPECIFIED (31) Hypoglycemia (32) Intentional self-harm (33) Leg weakness, bilateral (34) Leukocytosis (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 (36) Osteoarthritis (37) PANCREATIC DISEASE NEC (38) Past Psychotropic Medications (39) PERIPH VASCULAR DIS NOS (40) Polymyalgia rheumatica (41) Precordial chest pain (42) R sided numbness (43) Rheumatoid arthritis (44) Right sided weakness (45) Sternal fracture (46) Suicide attempt by acetaminophen overdose (47) Thoracic spine fracture (48) TIA (transient ischemic attack) (49) UTI (urinary tract infection) (50) VASCULAR DEMENTIA, UNCOMPLICATED (51) VERTIGO (52) VITAMIN D DEFICIENCY NOS (53) Wrist fracture Surgical Problems: (1) Hx of coronary artery bypass surgery Family History Heart disease Myocardial infarction Social History Smoking Status: Never Smoker Alcohol Use: none Drug Use: none Marital Status: single Housing Status: lives alone Occupation Status: retired Current/Historical Medications Scheduled Alendronate Sodium (Fosamax), 70 MG PO WK Aspirin (Ecotrin Low Strength), 81 MG PO QAM Calcium Carbonate-Vitamin D (Oscal 500/200 D-3), 1 TAB PO BID Ciprofloxacin Tab (Cipro), 250 MG PO BID Diclofenac Sodium (Topical) (Voltaren 1% Top Gel), 4 GM TP QID Dipyridamole/Aspirin (Aggrenox 25-200 mg), 1 CAP PO BID Docusate Sodium (Colace), 100 MG PO BID Duloxetine HCl (Cymbalta), 20 MG PO QAM Ergocalciferol (Vitamin D 77528 Unit), 50,000 UNIT PO WK Ferrous Sulfate (Kp Ferrous Sulfate), 325 MG PO BID Armtaxgl-Elnckbphpkue-Hcxohgat (Artificial Tears), 2 DROP OPB Q8 Insulin Glargine (Lantus), 15 UNITS SC HS Isosorbide Mononitrate Ext Rel (Imdur Ext Rel), 90 MG PO QAM Lidocaine (Lidocaine), 1 PATCH TOP Q12 Omeprazole (Prilosec), 20 MG PO HS Polyethylene Glycol 3350 (Miralax), 17 GM PO QAM Prednisone (Prednisone), 5 MG PO QAM Ranolazine (Ranexa), 1,000 MG PO BID Simvastatin (Zocor), 40 MG PO HS Topiramate (Topamax), 200 MG PO BID Scheduled PRN Acetaminophen (Tylenol), 650 MG PO Q6 PRN for Pain or Fever Albuterol Hfa (Ventolin Hfa), 2 PUFFS INH Q4 PRN for Shortness of Breath Bisacodyl (Dulcolax), 1 SUPP NC UD PRN for Constipation Loratadine (Claritin), 10 MG PO DAILY PRN for PRUITIS Magnesium Hydroxide (Milk of Magnesia), 30 ML PO UD PRN for Constipation Meclizine Hcl (Meclizine Hcl), 25 MG PO Q8 PRN for DIZZINESS Meclizine Hcl (Meclizine Hcl), 25 MG PO DAILY PRN for MOTION SICKNESS Simethicone (Gas-X), 80 MG PO Q6 PRN for BLOATING Sodium Phosphates (Fleet Enema Six Pack), 1 DOSE NC UD PRN for Constipation Allergies Coded Allergies: Iodinated Diagnostic Agents (Verified Allergy, Severe, ANAPHYLAXIS, ) Diablo (Verified Allergy, Severe, RASH, HIVES, TROUBLE BREATHING, ) Promethazine (Verified Allergy, Severe, HIVES, TROUBLE BREATHING, 06/30/17 ) Bupropion (Verified Allergy, Intermediate, RASH, 06/30/17) Diazepam (Verified Allergy, Intermediate, Rash, 06/30/17) Reported by PT. Erythromycin (Verified Allergy, Intermediate, RASH, 06/30/17) Iodine (Verified Allergy, Intermediate, RASH, HIVES, 06/30/17) Penicillins (Verified Allergy, Intermediate, RASH, 06/30/17) Phenytoin (Verified Allergy, Unknown, PT UNSURE, 06/30/17) Tamsulosin (Verified Adverse Reaction, Intermediate, DIZZINESS, 06/30/17) Physical Exam Vital Signs Date Time Temp Pulse Resp B/P (MAP) Pulse Ox O2 Delivery O2 Flow Rate FiO2 06/30/17 12:48 102 23 97 06/30/17 12:35 105 135/87 06/30/17 12:34 135/87 06/30/17 12:18 98 18 96 06/30/17 12:03 120/78 06/30/17 12:03 105 120/78 06/30/17 11:51 96 Room Air 06/30/17 11:49 119 134/83 06/30/17 11:48 126 20 134/83 06/30/17 11:34 129 06/30/17 11:23 36.9 125 22 130/88 96 Room Air Physical Exam GENERAL: Patient is in no acute distress. HEENT: No acute trauma, normocephalic atraumatic, mucous membranes moist, no nasal congestion, no scleral icterus. NECK: No stridor, no adenopathy, no meningismus, trachea is midline. LUNGS: Clear to auscultation bilaterally, no wheeze, no rhonchi, breath sounds equal. HEART: Tachycardic with a regular rhythm, no murmurs. ABDOMEN: Soft, nontender, bowel sounds positive, no hernias, no peritonitis. EXTREMITIES: Moderate bilateral pedal edema. No cyanosis, full range of motion of all the joints without pain or difficulty, no signs for acute trauma. NEUROLOGIC: Oriented x 3, no acute motor or sensory deficits, no focal weakness. SKIN: No rash, no jaundice, no diaphoresis. Medical Decision & Procedures ER Provider Diagnostic Interpretation: Radiology results as stated below per my review and radiologist interpretation: CHEST ONE VIEW PORTABLE CLINICAL HISTORY: Acute change in mental status. Tachycardia. COMPARISON STUDY: 05/28/2017 FINDINGS: The heart is normal in size. There is no acute parenchymal consolidation. There is a 19 mm right midlung zone opacity. As no corresponding nodule was visualized on the recent chest x-ray, nor on the CT scan performed in March 2017, this lesion is likely either artifactual or inflammatory. There is blunting of the right lateral costophrenic angle suggesting a small effusion.[ IMPRESSION: 1. Blunting of the right lateral costophrenic angle, consistent with a small effusion 2. No evidence of lobar consolidation 3. New 19 mm right midlung zone opacity, likely either artifactual or inflammatory Electronically signed by: Corky Miller M.D. 06/30/2017 12:07 PM Dictated Date/Time: 06/30/2017 12:05 PM Laboratory Results 06/30/17 11:45 Red Blood Count 4.80, Mean Corpuscular Volume 90.6, Mean Corpuscular Hemoglobin 28.1, Mean Corpuscular Hemoglobin Concent 31.0, Mean Platelet Volume 9.0 06/30/17 11:45 Test 06/30/17 11:45 06/30/17 13:00 White Blood Count 11.97 K/uL (4.8-10.8) Red Blood Count 4.80 M/uL (4.2-5.4) Hemoglobin 13.5 g/dL (12.0-16.0) Hematocrit 43.5 % (37-47) Mean Corpuscular Volume 90.6 fL (80-100) Mean Corpuscular Hemoglobin 28.1 pg (25-34) Mean Corpuscular Hemoglobin Concent 31.0 g/dl (32-36) Platelet Count 309 K/uL (130-400) Mean Platelet Volume 9.0 fL (7.4-10.4) RDW Standard Deviation 58.9 fL (36.4-46.3) RDW Coefficient of Variation 17.7 % (11.5-14.5) Neutrophils % (Manual) 71.4 % Lymphocytes % (Manual) 1.8 % Variant Lymphocytes % (manual) 14.3 % Monocytes % (Manual) 8.9 % Eosinophils % (Manual) 3.6 % Neutrophils # (Manual) 8.55 K/uL (1.4-6.5) Total Absolute Neutrophils 8.55 K/uL (1.4-6.5) Lymphocytes # (Manual) 0.22 K/uL (1.2-3.4) Absolute Variant Lymphocytes 1.71 K/uL Total Absolute Lymphocytes 1.93 K/uL (1.2-3.4) Monocytes # (Manual) 1.07 K/uL (0.11-0.59) Eosinophils # (Manual) 0.43 K/uL (0-0.5) Hypersegmented Polys 1+ Anisocytosis PRESENT Prothrombin Time 11.0 SECONDS (9.0-12.0) Prothromb Time International Ratio 1.0 (0.9-1.1) Activated Partial Thromboplast Time 23.3 SECONDS (21.0-31.0) Partial Thromboplastin Ratio 0.9 Anion Gap 7.0 mmol/L (3-11) Est Creatinine Clear Calc Drug Dose 39.3 ml/min Estimated GFR () 51.7 Estimated GFR (Non- 44.6 BUN/Creatinine Ratio 9.7 (10-20) Calcium Level 10.0 mg/dl (8.5-10.1) Magnesium Level 2.3 mg/dl (1.8-2.4) Total Bilirubin 0.3 mg/dl (0.2-1) Aspartate Amino Transf (AST/SGOT) 12 U/L (15-37) Alanine Aminotransferase (ALT/SGPT) 13 U/L (12-78) Alkaline Phosphatase 59 U/L (45-117) Troponin I 0.046 ng/ml (0-0.045) Total Protein 7.7 gm/dl (6.4-8.2) Albumin 3.5 gm/dl (3.4-5.0) Globulin 4.2 gm/dl (2.5-4.0) Albumin/Globulin Ratio 0.8 (0.9-2) Thyroid Stimulating Hormone (TSH) 0.982 uIu/ml (0.300-4.500) Urine Color YELLOW Urine Appearance CLEAR (CLEAR) Urine pH 7.5 (4.5-7.5) Urine Specific [place] 1.017 (1.000-1.030) Urine Protein NEG (NEG) Urine Glucose (UA) NEG (NEG) Urine Ketones NEG (NEG) Urine Occult Blood TRACE (NEG) Urine Nitrite NEG (NEG) Urine Bilirubin NEG (NEG) Urine Urobilinogen NEG (NEG) Urine Leukocyte Esterase SMALL (NEG) Urine WBC (Auto) 5-10 /hpf (0-5) Urine RBC (Auto) 0-4 /hpf (0-4) Urine Hyaline Casts (Auto) 1-5 /lpf (0-5) Urine Epithelial Cells (Auto) 20-30 /lpf (0-5) Urine Bacteria (Auto) NEG (NEG) Laboratory results reviewed by me. Medications Administered Medications (Trade) Dose Ordered Sig/Phil Route Start Time Stop Time Status Last Admin Dose Admin Sodium Chloride 500 ml @ 999 mls/hr Q31M STAT IV 06/30/17 11:35 06/30/17 12:05 DC 06/30/17 11:49 999 MLS/HR Metoprolol Tartrate (Lopressor Iv) 5 mg NOW STAT IV 06/30/17 11:35 06/30/17 11:38 DC 06/30/17 11:49 5 MG Metoprolol Tartrate (Lopressor Iv) 2.5 mg NOW STAT IV 06/30/17 11:59 06/30/17 12:03 DC 06/30/17 12:03 2.5 MG Acetaminophen (Tylenol Tab) 1,000 mg NOW STAT PO 06/30/17 12:28 06/30/17 12:29 DC 06/30/17 12:36 1,000 MG Metoprolol Tartrate (Lopressor Iv) 2.5 mg NOW STAT IV 06/30/17 12:29 06/30/17 12:30 DC 06/30/17 12:35 2.5 MG ECG Indication: chest pain Rate (beats per minute): 128 Rhythm: other (narrow complex tachycardia, possible junctional rhythm, SVT, or atrial fibrillation) Findings: nonspecific-ST abn, no acute ischemic change Change: Repeat EKG: possible atrial fibrillation vs junctional escape 96 beats per minute, nonspecific T wave changes, no acute ischemia. This is after 5 mg of Lopressor. Repeat EKG #2: atrial fibrillation [address] changes, no acute ischemia. This is after an additional 2.5 mg of Lopressor. ED Course 1129: The patient was evaluated in room C9. A complete history and physical exam was performed. 1135: Ordered Lopressor IV 4 mg IV, Sodium Chloride 500 ml @ 999 mls/hr IV. 1138: I discussed the patients case with Dr. Ponce, Cardiology. He said to try the Lopressor first and if it does not work, try Adenosine second. 1159: Ordered Lopressor IV 2.5 mg IV. 1228: Ordered Tylenol Tab 1000 mg PO, Lopressor IV 2.5 mg IV. 1247: I reevaluated the patient and she is resting comfortably. I discussed the exam findings with her and I discussed the treatment plan. She verbalized complete understanding and agreement. She is going to be evaluated for further treatment. 1254: I discussed the patients case [place] [facility] [place] is going to evaluate the patient for further treatment. Medical Decision The patient is an 82 year old female who presents to the ED with complaints of chest pain. Differential diagnoses considered include SVT, afib or aflutter, junctional rhythm, dehydration, electrolyte imbalance, [place], anemia. There is a mild leukocytosis, this could be consistent with infection or the stress of her situation. No concerning anemia. No significant electrolyte abnormality, kidney failure or hepatitis. There is no coagulopathy. EKG shows a rapid rate with a possible SVT, junctional rhythm or even A. fib. No acute ischemic change. Cardiac enzyme testing times one does show a slight elevation consistent with possible cardiac strain or injury. Urinalysis does not show obvious infection. Chest x-ray does not show CHF, artifact versus pneumonia was queried. There was no significant mediastinal widening. The patient appears to be in a euthyroid state. The patient was aggressively managed. She received IV Lopressor, several doses were given and her heart rate is now under 100. She appears to have A. fib on repeat EKGs. No acute ischemic changes. Patient was given IV saline for hydration. She received oral Tylenol for a headache. Patient is resting comfortably. Given the rapid A. fib, given the troponin elevation, I did think further evaluation would be warranted. I talked with her and the case management director. The on-call hospitalist was consulted. Medication Reconcilliation Current Medication List: was personally reviewed by me Blood Pressure Screening Patient's blood pressure: Elevated blood pressure Blood pressure disposition: Elevated BP felt to be situational, Did not require urgent referral Consults Time Called: 1132 Consulting Physician: Dr. Ponce, Cardiology Returned Call: [phone] I discussed the patients case with Dr. Ponce, Cardiology. He said to try the Lopressor first and if it does not work, try Adenosine second. Additional Consults: Time Called: [phone] Consulted Physician: RC Mauricio Returned Call: [phone] Additional Comments: I discussed the patients case with RC Mauricio. He is going to evaluate the patient for further treatment. Impression Primary Impression: Atrial fibrillation with rapid ventricular response Critical Care I have personally spent greater than 33 minutes of critical care time in the direct management of this patient. This includes bedside care, interpretation of diagnostic studies, and testing, discussion with consultants, patient, and family members, and other required patient management activities. This 33 minutes is in excess of all separately billable procedures. Scribe Attestation The scribe's documentation has been prepared under my direction and personally reviewed by me in its entirety. I confirm that the note above accurately reflects all work, treatment, procedures, and medical decision making performed by me. Departure Information Dispostion Being Evaluated By Hospitalist Referrals [facility] (PCP)
[2017-06-30 11:56] LABS: HEMATOCRIT 43.5 % (37-47); MEAN CELL VOLUME 90.6 fL (80-100); MEAN CORPUSCULAR HEMOGLOBIN 28.1 pg (25-34); PLATELET COUNT 309 K/uL (130-400); WHITE BLOOD COUNT 11.97 K/uL (4.8-10.8)
[2017-06-30 12:05] LABS: PARTIAL THROMBOPLASTIN RATIO 0.9
--- NOTE | 2017-06-30 12:08 | DIAGNOSTIC IMAGING REPORT ---
CHEST ONE VIEW PORTABLE CLINICAL HISTORY: Acute change in mental status. Tachycardia. COMPARISON STUDY: 05/28/2017 FINDINGS: The heart is normal in size. There is no acute parenchymal consolidation. There is a 19 mm right midlung zone opacity. As no corresponding nodule was visualized on the recent chest x-ray, nor on the CT scan performed in March 2017, this lesion is likely either artifactual or inflammatory. There is blunting of the right lateral costophrenic angle suggesting a small effusion.[ IMPRESSION: 1. Blunting of the right lateral costophrenic angle, consistent with a small effusion 2. No evidence of lobar consolidation 3. New 19 mm right midlung zone opacity, likely either artifactual or inflammatory Electronically signed by: Corky Miller M.D. 06/30/2017 12:07 PM Dictated Date/Time: 06/30/2017 12:05 PM
[2017-06-30 12:15] LABS: BUN/CREATININE RATIO 9.7 (10-20); CREATININE 1.15 mg/dl (0.60-1.20); MAGNESIUM 2.3 mg/dl (1.8-2.4); POTASSIUM 4.1 mmol/L (3.5-5.1)
[2017-06-30 12:22] LABS: ANISOCYTOSIS PRESENT; COMPLETE YES; EOSINOPHIL % 3.6 %; HYPERSEGMENTED POLYS 1+; LYMPH ABS # 0.22 K/uL (1.2-3.4); LYMPHOCYTE % 1.8 %; NEUTROPHILS % 71.4 %; VARIANT LYM ABS # 1.71 K/uL; VARIANT LYMPHOCYTE % 14.3 %
[2017-06-30] MEDS ORDERED: ACETAMINOPHEN 500 MG TAB PO STA (12:28)
[2017-06-30 12:33] LABS: ALB/GLOB RATIO 0.8 (0.9-2); THYROID STIMULATING HORMONE 0.982 uIu/ml (0.300-4.500)
[2017-06-30] MEDS ORDERED: FERR1TAB13 PO (13:00)
[2017-06-30] MEDS ORDERED: ERGO500037 PO (13:00)
[2017-06-30] MEDS ORDERED: POLY335019 PO (13:00)
[2017-06-30] MEDS ORDERED: SODI1ENE PR (13:00)
[2017-06-30] MEDS ORDERED: LIDO1PAD2 TOP (13:00)
[2017-06-30] MEDS ORDERED: BISA10SU3 PR (13:00)
[2017-06-30] MEDS ORDERED: TOPI200T14 PO (13:00)
[2017-06-30] MEDS ORDERED: VNTHFA/IN INH (13:00)
[2017-06-30] MEDS ORDERED: SIME80CH PO (13:00)
[2017-06-30] MEDS ORDERED: RANO1000 PO (13:00)
[2017-06-30] MEDS ORDERED: ALEN70TA2 PO (13:00)
[2017-06-30] MEDS ORDERED: ISOS30TA35 PO (13:00)
[2017-06-30] MEDS ORDERED: PRED-301 PO (13:00)
[2017-06-30] MEDS ORDERED: SIMV40TA2 PO (13:00)
[2017-06-30] MEDS ORDERED: MOMLX PO (13:00)
[2017-06-30] MEDS ORDERED: GLYCDRO6 OPB (13:00)
[2017-06-30] MEDS ORDERED: DICL1GEL12 TP (13:00)
[2017-06-30] MEDS ORDERED: DULO-24 PO (13:00)
[2017-06-30] MEDS ORDERED: DOCU-94 PO (13:00)
[2017-06-30] MEDS ORDERED: ASPI-428 PO (13:00)
[2017-06-30] MEDS ORDERED: PRLSR20 PO (13:00)
[2017-06-30] MEDS ORDERED: CLR10 PO (13:00)
[2017-06-30] MEDS ORDERED: AGG PO (13:00)
[2017-06-30] MEDS ORDERED: ACET-1311 PO (13:00)
[2017-06-30] MEDS ORDERED: INSDGI SC (13:00)
[2017-06-30] MEDS ORDERED: CIPR1TAB11 PO (13:00)
[2017-06-30] MEDS ORDERED: MECL1CHW4 PO ×2 (13:00)
[2017-06-30] MEDS ORDERED: CALC200T PO (13:00)
[2017-06-30 13:25] LABS: URINE APPEARANCE CLEAR (CLEAR); URINE BILIRUBIN NEG (NEG); URINE COLOR YELLOW; URINE EPITHELIAL CELL AUTO 20-30 /lpf (0-5); URINE NITRITE NEG (NEG); URINE PH 7.5 (4.5-7.5); URINE SPECIFIC GRAVITY 1.017 (1.000-1.030); UROBILINOGEN NEG (NEG); ZZURINE CULT IF INDIC CATH NO
[2017-06-30 13:28] LABS: MANUAL MICROSCOPIC REQUIRED? NO; REVIEW REQ? NO
--- NOTE | 2017-06-30 13:41 | History and Physical ---
History & Physical Date & Time of Service: Jun 30, 2017 at 13:29 Chief Complaint: Cardiac Assessment Primary Care Physician: Anayeli Heath History of Present Illness Source: patient, family, clinic records, hospital records Ms. Hou is an 88 year old woman here from Dr. Hammonds's office for chest pain and A.fib RVR. She was at a routine follow up and was found to have a heart rate in the 130s in the office and was sent to the ED. She continues to complain of substernal chest pain radiating to right arm. She does normally have chest pain with exertion but not at rest. She has accompanying shortness of breath, no diaphoresis or nausea. She has a history of a cardiac cath in 2014 with significant CAD but was deemed too high risk for CABG. Thursday she began 7 days of Cipro for a UTI. Her daughter states that she was very confused and that her mental status is not totally back to baseline. This is consistent with previous UTIs where she has become very confused and it has taken some time to return to baseline mental status. Ms. Hou has an extensive medical history. 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 She also has frequent falls and has recently not been allowed much opportunity to mobilize at [facility] because she is no longer allowed up by herself. Past Medical/Surgical History Medical Problems: (1) Adrenal insufficiency Status: Chronic (2) Asthmatic bronchitis Status: Chronic (3) ATRIAL FIBRILLATION Status: Chronic (4) Blind right eye Status: Chronic (5) Blindness of right eye Status: Chronic (6) CEREBRAL THROMBOSIS W CEREBRAL INFARCTION Status: Chronic (7) CEREBROVASC DISEASE NOS Status: Chronic (8) Cervical spine fracture Status: Resolved (9) Chest pain Status: Resolved (10) CHRONIC KIDNEY DISEASE, STAGE V Status: Chronic (11) CVA (cerebral infarction) Status: Resolved (12) CYSTIC KIDNEY DISEASE, UNSPECIFIED Status: Chronic (13) Depression Status: Chronic (14) Depression Status: Chronic (15) Diabetes Status: Chronic (16) ESOPHAGEAL REFLUX Status: Chronic (17) GI bleed Status: Resolved (18) Head injury Status: Resolved (19) Heart disease Status: Chronic (20) HTN (hypertension) Status: Chronic (21) Hyperlipidemia Status: Chronic (22) HYPERPARATHYROIDISM, UNSPECIFIED Status: Chronic (23) Osteoarthritis Status: Chronic (24) PANCREATIC DISEASE NEC Status: Chronic (25) PERIPH VASCULAR DIS NOS Status: Chronic (26) Polymyalgia rheumatica Status: Chronic (27) R sided numbness Status: Chronic (28) Rheumatoid arthritis Status: Chronic (29) Right sided weakness Status: Chronic (30) Sternal fracture Status: Resolved (31) TIA (transient ischemic attack) Status: Resolved (32) VASCULAR DEMENTIA, UNCOMPLICATED Status: Chronic (33) VITAMIN D DEFICIENCY NOS Status: Chronic (34) Wrist fracture Status: Resolved Surgical Problems: (1) Hx of coronary artery bypass surgery Status: Resolved Family History Heart disease Myocardial infarction Social History Smoking Status: Former Smoker (quit in 1985) Drug Use: none Marital Status: single Housing status: long-term Occupational Status: retired Immunizations History of Influenza Vaccine: No History of Tetanus Vaccine?: utd History of Pneumococcal: Yes Pneumococcal Date: Sep 24, 2010 History of Hepatitis B Vaccine: No Multi-Drug Resistant Organisms History of MDRO: No Allergies Coded Allergies: Iodinated Diagnostic Agents (Verified Allergy, Severe, ANAPHYLAXIS, ) Animas (Verified Allergy, Severe, RASH, HIVES, TROUBLE BREATHING, ) Promethazine (Verified Allergy, Severe, HIVES, TROUBLE BREATHING, 06/30/17 ) Bupropion (Verified Allergy, Intermediate, RASH, 06/30/17) Diazepam (Verified Allergy, Intermediate, Rash, 06/30/17) Reported by PT. Erythromycin (Verified Allergy, Intermediate, RASH, 06/30/17) Iodine (Verified Allergy, Intermediate, RASH, HIVES, 06/30/17) Penicillins (Verified Allergy, Intermediate, RASH, 06/30/17) Phenytoin (Verified Allergy, Unknown, PT UNSURE, 06/30/17) Sulfa Antibiotics (Verified Allergy, Unknown, HIVES, 06/30/17) Tamsulosin (Verified Adverse Reaction, Intermediate, DIZZINESS, 06/30/17) Home Medications Scheduled Alendronate Sodium (Fosamax), 70 MG PO WK Aspirin (Ecotrin Low Strength), 81 MG PO QAM Calcium Carbonate-Vitamin D (Oscal 500/200 D-3), 1 TAB PO BID Ciprofloxacin Tab (Cipro), 250 MG PO BID Diclofenac Sodium (Topical) (Voltaren 1% Top Gel), 4 GM TP QID Dipyridamole/Aspirin (Aggrenox 25-200 mg), 1 CAP PO BID Docusate Sodium (Colace), 100 MG PO BID Duloxetine HCl (Cymbalta), 20 MG PO QAM Ergocalciferol (Vitamin D 67200 Unit), 50,000 UNIT PO WK Ferrous Sulfate (Kp Ferrous Sulfate), 325 MG PO BID Oiwnklue-Tsmatfydsblp-Kmjmbnla (Artificial Tears), 2 DROP OPB Q8 Insulin Glargine (Lantus), 15 UNITS SC HS Isosorbide Mononitrate Ext Rel (Imdur Ext Rel), 90 MG PO QAM Lidocaine (Lidocaine), 1 PATCH TOP Q12 Omeprazole (Prilosec), 20 MG PO HS Polyethylene Glycol 3350 (Miralax), 17 GM PO QAM Prednisone (Prednisone), 5 MG PO QAM Ranolazine (Ranexa), 1,000 MG PO BID Simvastatin (Zocor), 40 MG PO HS Topiramate (Topamax), 200 MG PO BID Scheduled PRN Acetaminophen (Tylenol), 650 MG PO Q6 PRN for Pain or Fever Albuterol Hfa (Ventolin Hfa), 2 PUFFS INH Q4 PRN for Shortness of Breath Bisacodyl (Dulcolax), 1 SUPP DC UD PRN for Constipation Loratadine (Claritin), 10 MG PO DAILY PRN for PRUITIS Magnesium Hydroxide (Milk of Magnesia), 30 ML PO UD PRN for Constipation Meclizine Hcl (Meclizine Hcl), 25 MG PO Q8 PRN for DIZZINESS Meclizine Hcl (Meclizine Hcl), 25 MG PO DAILY PRN for MOTION SICKNESS Simethicone (Gas-X), 80 MG PO Q6 PRN for BLOATING Sodium Phosphates (Fleet Enema Six Pack), 1 DOSE DC UD PRN for Constipation Review of Systems Constitutional: No fever, No chills Respiratory: + shortness of breath, No cough, No sputum, No wheezing Cardiovascular: + chest pain, + edema Abdomen: No pain, No nausea, No vomiting, No diarrhea Physical Exam Vital Signs Date Time Temp Pulse Resp B/P (MAP) Pulse Ox O2 Delivery O2 Flow Rate FiO2 06/30/17 12:48 102 23 97 06/30/17 12:35 105 135/87 06/30/17 12:34 135/87 06/30/17 12:18 98 18 96 06/30/17 12:03 120/78 06/30/17 12:03 105 120/78 06/30/17 11:51 96 Room Air 06/30/17 11:49 119 134/83 06/30/17 11:48 126 20 134/83 06/30/17 11:34 129 06/30/17 11:23 36.9 125 22 130/88 96 Room Air Cardiovascular: + irregularly irregular General: no distress Eyes: normal inspection, right eye extropic with non reacting pupil (patient states eye is blind), left eye reactive Respiratory: chest non tender, clear to auscultation, normal breath sounds, no respiratory distress, no accessory muscle use Cardiac: irregular rate and rhythm, no rub or gallop, no murmur, no edema, no jvd GI/: active bowel sounds, no abd pain, mild left abdominal tenderness, soft, non distended Extremities: normal range of motion, generalized weakness, non tender Neuro/Psych: alert and oriented x 3, confused at times, normal mood and affect Skin: normal color, dry Diagnostics Laboratory Results Results Past 24 Hours Test 06/30/17 11:45 06/30/17 13:00 Range/Units White Blood Count 11.97 4.8-10.8 K/uL Red Blood Count 4.80 4.2-5.4 M/uL Hemoglobin 13.5 12.0-16.0 g/dL Hematocrit 43.5 37-47 % Mean Corpuscular Volume 90.6 80-100 fL Mean Corpuscular Hemoglobin 28.1 25-34 pg Mean Corpuscular Hemoglobin Concent 31.0 32-36 g/dl Platelet Count 309 130-400 K/uL Mean Platelet Volume 9.0 7.4-10.4 fL RDW Standard Deviation 58.9 36.4-46.3 fL RDW Coefficient of Variation 17.7 11.5-14.5 % Neutrophils % (Manual) 71.4 % Lymphocytes % (Manual) 1.8 % Variant Lymphocytes % (manual) 14.3 % Monocytes % (Manual) 8.9 % Eosinophils % (Manual) 3.6 % Neutrophils # (Manual) 8.55 1.4-6.5 K/uL Total Absolute Neutrophils 8.55 1.4-6.5 K/uL Lymphocytes # (Manual) 0.22 1.2-3.4 K/uL Absolute Variant Lymphocytes 1.71 K/uL Total Absolute Lymphocytes 1.93 1.2-3.4 K/uL Monocytes # (Manual) 1.07 0.11-0.59 K/uL Eosinophils # (Manual) 0.43 0-0.5 K/uL Hypersegmented Polys 1+ Anisocytosis PRESENT Prothrombin Time 11.0 9.0-12.0 SECONDS Prothromb Time International Ratio 1.0 0.9-1.1 Activated Partial Thromboplast Time 23.3 21.0-31.0 SECONDS Partial Thromboplastin Ratio 0.9 Sodium Level 139 136-145 mmol/L Potassium Level 4.1 3.5-5.1 mmol/L Chloride Level 106 98-107 mmol/L Carbon Dioxide Level 26 21-32 mmol/L Anion Gap 7.0 3-11 mmol/L Blood Urea Nitrogen 11 7-18 mg/dl Creatinine 1.15 0.60-1.20 mg/dl Est Creatinine Clear Calc Drug Dose 39.3 ml/min Estimated GFR () 51.7 Estimated GFR (Non- 44.6 BUN/Creatinine Ratio 9.7 10-20 Random Glucose 137 70-99 mg/dl Calcium Level 10.0 8.5-10.1 mg/dl Magnesium Level 2.3 1.8-2.4 mg/dl Total Bilirubin 0.3 0.2-1 mg/dl Aspartate Amino Transf (AST/SGOT) 12 15-37 U/L Alanine Aminotransferase (ALT/SGPT) 13 12-78 U/L Alkaline Phosphatase 59 45-117 U/L Troponin I 0.046 0-0.045 ng/ml Total Protein 7.7 6.4-8.2 gm/dl Albumin 3.5 3.4-5.0 gm/dl Globulin 4.2 2.5-4.0 gm/dl Albumin/Globulin Ratio 0.8 0.9-2 Thyroid Stimulating Hormone (TSH) 0.982 0.300-4.500 uIu/ml Urine Color YELLOW Urine Appearance CLEAR CLEAR Urine pH 7.5 4.5-7.5 Urine Specific [place] 1.017 1.000-1.030 Urine Protein NEG NEG Urine Glucose (UA) NEG NEG Urine Ketones NEG NEG Urine Occult Blood TRACE NEG Urine Nitrite NEG NEG Urine Bilirubin NEG NEG Urine Urobilinogen NEG NEG Urine Leukocyte Esterase SMALL NEG Urine WBC (Auto) 5-10 0-5 /hpf Urine RBC (Auto) 0-4 0-4 /hpf Urine Hyaline Casts (Auto) 1-5 0-5 /lpf Urine Epithelial Cells (Auto) 20-30 0-5 /lpf Urine Bacteria (Auto) NEG NEG Diagnostic Radiology CHEST ONE VIEW PORTABLE CLINICAL HISTORY: Acute change in mental status. Tachycardia. COMPARISON STUDY: 05/28/2017 FINDINGS: The heart is normal in size. There is no acute parenchymal consolidation. There is a 19 mm right midlung zone opacity. As no corresponding nodule was visualized on the recent chest x-ray, nor on the CT scan performed in March 2017, this lesion is likely either artifactual or inflammatory. There is blunting of the right lateral costophrenic angle suggesting a small effusion.[ IMPRESSION: 1. Blunting of the right lateral costophrenic angle, consistent with a small effusion 2. No evidence of lobar consolidation 3. New 19 mm right midlung zone opacity, likely either artifactual or inflammatory EKG Atrial fibrillation Left axis deviation Nonspecific T wave abnormality Abnormal ECG When compared with ECG of 30-JUN-2017 11:55, (unconfirmed) Impression Assessment and Plan Ms. Hou is an 88 year old woman here from Dr. Hammonds's office for chest pain and A.fib RVR. She was at a routine follow up and was found to have a heart rate in the 130s in the office and was sent to the ED. She continues to complain of substernal chest pain radiating to right arm. She does normally have chest pain with exertion but not at rest. She has accompanying shortness of breath, no diaphoresis or nausea. She has a history of a cardiac cath in 2014 with significant CAD but was deemed too high risk for CABG. A.fib/elevated troponin/chest pain -admit telemetry observation to monitor heart rate overnight - discussed with Dr. Hammonds - patient not a candidate for cardioversion, focus on rate control and anticoagulation, - start metoprolol 25 mg bid - patient had previously been on propranolol but this was discontinued due to possible unwitnessed syncopal episode. Per outpatient provider note, it is unclear whether this syncope truly occured and patient was left off beta patric after week trial because she did not have further complaints of syncope. Because it is unclear if there was truly a syncopal event and given her extensive cardiac history, I think it would be worth another trial of beta blockers for rate control. - start Eliquis 5 mg bid - trend troponin - EKG with chest pain and in the morning - ASA, aggrenox, isosorbide, ranexa UTI - continue outpatient po cipro - abx started 06/28 - 7 day course DMII - continue lantus, ss, accuchecks Asthma - continue prn albuterol Depression - continue cymbalta History of chronic knee/back pain - - continue Voltaren gel, lidocaine patches Chronic pruritis - continue loratidine History of seizure disorder - continue topomax Resuscitation status - DNR DVT prophylaxis - Geeta Nava Resident Physician Supervision Note: I was present with BIOLOGY DEPARTMENT CHAIR Billy during the history and exam. I discussed the case with the BIOLOGY DEPARTMENT CHAIR and agree with the findings and plan as documented in the note. Any exceptions or clarifications are listed here: 82 y/o F Hx PAF, seizures, DM - presenting from card office with CP, SOB, MS changes/mild confusion AF/RVR noted at nutrition aide - borderline trop on intial labs OE AAO x 2 S1,2 irr/faint NT, ND + b/l edema Mild confusion - tangential - sentence repetition P: Placed on Bblocker and Eliquis following instruction from Claim Rep Will obtain serial troponins UTI is present which may be contributing to confusion - cont current Abx Documented By: Severiano Teixeira Level of Care Telemetry Advanced Directives Existing Advance Directive: No Existing Living Will: No Resuscitation Status DO NOT RESUSCITATE VTE Prophylaxis VTE Risk Assessment Done? Y/N: Yes Risk Level: Moderate Given or contraindicated: Other Anticoagulation, SCD's Social Service Consult Lives in Detention
[2017-06-30 13:47] VITALS: Ht 157.5 cm; Wt 84.6 kg
[2017-06-30] MEDS ORDERED: ALBUTEROL HFA 8 GM INHALER INH PRN (15:15)
[2017-06-30] MEDS ORDERED: POLYETHYLENE (MIRALAX) 17 GM PACK PO PRN (15:15)
[2017-06-30] MEDS ORDERED: MAGNESIUM HYDROXIDE SUSP 30 ML UDC PO PRN (15:15)
[2017-06-30] MEDS ORDERED: SIMETHICONE 80 MG CHEW PO PRN (15:15)
[2017-06-30] MEDS ORDERED: ACETAMINOPHEN 325 MG TAB PO PRN ×2 (15:15)
[2017-06-30] MEDS ORDERED: IV FLUIDS COMPLETED PRN (16:00)
[2017-06-30] MEDS ORDERED: GLUCOSE 40% GEL 15 GM TUBE PO PRN (16:15)
[2017-06-30] MEDS ORDERED: DEXTROSE 50% 50 ML SYR IV PRN (16:15)
[2017-06-30] MEDS ORDERED: GLUCAGON FOR INJ 1 MG VIAL SQ PRN (16:15)
[2017-06-30] MEDS ORDERED: GLUCOSE 10 TABS/TUBE PO PRN (16:15)
[2017-06-30 16:45] VITALS: BP 141/90; PULSE 100; TEMP 36.5; O2SAT 95; O2SAT 97
[2017-06-30] MEDS ORDERED: MECLIZINE HCL 25 MG TAB PO PRN (16:45)
[2017-06-30] MEDS ORDERED: METOPROLOL TARTRATE 25 MG TAB PO ONE (17:15)
[2017-06-30 19:28] VITALS: BP 127/80; PULSE 88; TEMP 36.6; O2SAT 91
[2017-06-30 19:55] VITALS: BP 139/91; PULSE 81; TEMP 37; O2SAT 96
[2017-06-30 20:00] VITALS: O2SAT 95
[2017-06-30] MEDS: DICLOFENAC SOD 1% GEL 100 GM TUBE EXT SCH (20:49)
[2017-06-30] MEDS: PANTOprazole SOD 40 MG TAB PO SCH (20:50)
[2017-06-30] MEDS: SIMVASTATIN 40 MG TAB PO SCH (20:50)
[2017-06-30] MEDS: RANOLAZINE 500 MG ER TAB PO SCH (20:50)
[2017-06-30] MEDS: TOPIRAMATE 100 MG TAB PO SCH (20:50)
[2017-06-30] MEDS: METOPROLOL TARTRATE 25 MG TAB PO SCH (20:51)
[2017-06-30] MEDS: DIPYRIDAMOLE/ASPIRIN CAP PO SCH (20:51)
[2017-06-30] MEDS: DOCUSATE SODIUM 100 MG CAP PO SCH (20:51)
[2017-06-30] MEDS: FERROUS SULFATE 325 MG TAB PO SCH (20:51)
[2017-06-30] MEDS: APIXABAN 2.5 MG TAB PO SCH (20:52)
[2017-06-30] MEDS: CIPROFLOXACIN 250 MG TAB PO SCH (20:52)
[2017-06-30] MEDS: CALCIUM 600MG + VIT D 400 IU TAB PO SCH (20:52)
[2017-06-30] MEDS: INSULIN ASPART 100 UNITS/ML 3 ML PEN SC SCH (20:53)
[2017-06-30] MEDS: LIDODERM (LIDOCAINE) PATCH 5% TD SCH (20:54)
[2017-06-30] MEDS: ARTIFICIAL TEARS OP SOLN OPB SCH ×2 (21:02)
[2017-06-30] MEDS: INSULIN GLARGINE SOLOSTAR 100 UNITS/ML 3 ML PEN SC SCH (21:04)
[2017-06-30] MEDS: LORATADINE 10 MG TAB PO PRN (22:03)
[2017-06-30 23:25] VITALS: BP 141/81; PULSE 88; TEMP 36.5; O2SAT 95
[2017-07-01 03:44] VITALS: BP 142/84; PULSE 68; TEMP 36.7; O2SAT 96
[2017-07-01] MEDS: ARTIFICIAL TEARS OP SOLN OPB SCH ×6 (05:28→20:32)
[2017-07-01 07:52] VITALS: BP 120/83; PULSE 95; TEMP 37.4; O2SAT 96
[2017-07-01] MEDS: INSULIN ASPART 100 UNITS/ML 3 ML PEN SC SCH ×4 (08:24→21:06)
[2017-07-01] MEDS: DICLOFENAC SOD 1% GEL 100 GM TUBE EXT SCH ×4 (08:41→20:26)
[2017-07-01] MEDS: CALCIUM 600MG + VIT D 400 IU TAB PO SCH ×2 (08:43→20:30)
[2017-07-01] MEDS: ASPIRIN 81 MG ECTAB PO SCH (08:43)
[2017-07-01] MEDS: POLYETHYLENE (MIRALAX) 17 GM PACK PO SCH (08:43)
[2017-07-01] MEDS: DIPYRIDAMOLE/ASPIRIN CAP PO SCH ×2 (08:44→20:27)
[2017-07-01] MEDS: APIXABAN 2.5 MG TAB PO SCH ×2 (08:44→20:26)
[2017-07-01] MEDS: DOCUSATE SODIUM 100 MG CAP PO SCH ×2 (08:44→20:30)
[2017-07-01] MEDS: CIPROFLOXACIN 250 MG TAB PO SCH ×2 (08:44→20:29)
[2017-07-01] MEDS: DULOXETINE HCL 20 MG CAP PO SCH (08:44)
[2017-07-01] MEDS: FERROUS SULFATE 325 MG TAB PO SCH ×2 (08:45→20:31)
[2017-07-01] MEDS: METOPROLOL TARTRATE 25 MG TAB PO SCH ×2 (08:45→20:28)
[2017-07-01] MEDS: ISOSORBIDE MONONITRATE 30 MG TABCR PO SCH (08:45)
[2017-07-01] MEDS: TOPIRAMATE 100 MG TAB PO SCH ×2 (08:46→20:30)
[2017-07-01] MEDS: RANOLAZINE 500 MG ER TAB PO SCH ×2 (08:46→20:27)
[2017-07-01 11:12] VITALS: BP 119/75; PULSE 92; TEMP 36.8; O2SAT 94
--- NOTE | 2017-07-01 13:03 | Hospitalist Progress Note ---
Hospitalist Progress Note Date of Service Jul 01, 2017. (Ngoc Dong PA-C) Subjective Pt evaluation today including: conversation w/ patient, physical exam, chart review, lab review, review of studies, review of inpatient medication list Pain: None PO Intake: Adequate Voiding: no voiding problems Patient seen and evaluated. No acute events overnight. Remains in A Fib but largely rate controlled. Can go in low 100s and when ambulated up to 120s. Patient complains of ongoing fatigue and intermittent CP that she has chronically. She continues to be treated for a UTI but denies urinary tract symptoms at this time. She is a permanent resident of [facility]. Constitutional: + fatigue, No fever, No chills Respiratory: No cough, No shortness of breath Cardiovascular: + chest pain (intermittent - chronic), No palpitations Abdomen: No pain, No nausea, No vomiting, No diarrhea, No constipation Female : No dysuria Heme: No abnormal bleeding/bruising (Ngoc Dong PA-C) Medications Current Inpatient Medications Medications (Trade) Dose Ordered Sig/Phil Route Start Time Stop Time Status Last Admin Dose Admin Acetaminophen (Tylenol Tab) 650 mg Q4H PRN PO 06/30/17 15:15 07/30/17 15:14 Polyethylene (Miralax Powder Packet) 17 gm DAILY PRN PO 06/30/17 15:15 07/30/17 15:14 Albuterol (Ventolin Hfa Inhaler) 2 puffs Q4H PRN INH 06/30/17 15:15 07/30/17 15:14 Aspirin (Ecotrin Tab) 81 mg QAM PO 07/01/17 09:00 07/31/17 08:59 07/01/17 08:43 81 MG Ciprofloxacin (Ciprofloxacin Tab) 250 mg BID PO 06/30/17 21:00 07/05/17 20:59 07/01/17 08:44 250 MG Dipyridamole/ Aspirin (Aggrenox 200MG/ 25MG Cap) 1 cap BID PO 06/30/17 21:00 07/30/17 20:59 07/01/17 08:44 1 CAP Docusate Sodium (coLACE CAP) 100 mg BID PO 06/30/17 21:00 07/30/17 20:59 07/01/17 08:44 100 MG Duloxetine HCl (Cymbalta Cap) 20 mg QAM PO 07/01/17 09:00 07/31/17 08:59 07/01/17 08:44 20 MG Insulin Glargine (Lantus Solostar Pen) 15 units HS SC 06/30/17 21:00 07/30/17 20:59 06/30/17 21:04 15 UNITS Isosorbide Mononitrate (Imdur Ext Rel Tab) 90 mg QAM PO 07/01/17 09:00 07/31/17 08:59 07/01/17 08:45 90 MG Lidocaine (Lidoderm Patch 5%) 1 patch HS TD 06/30/17 21:00 07/30/17 20:59 Loratadine (Claritin Tab) 10 mg DAILY PRN PO 06/30/17 15:15 07/30/17 15:14 06/30/17 22:03 10 MG Magnesium Hydroxide (Milk Of Magnesia Susp) 30 ml UD PRN PO 06/30/17 15:15 07/30/17 15:14 Prednisone (PredniSONE TAB) 5 mg QAM PO 07/01/17 09:00 07/31/17 08:59 07/01/17 08:46 5 MG Simethicone (Mylicon Chew Tab) 80 mg Q6H PRN PO 06/30/17 15:15 07/30/17 15:14 Simvastatin (Zocor Tab) 40 mg HS PO 06/30/17 21:00 07/30/17 20:59 06/30/17 20:50 40 MG Topiramate (Topamax Tab) 200 mg BID PO 06/30/17 21:00 07/30/17 20:59 07/01/17 08:46 200 MG Calcium/Vitamin D (Caltrate Plus Tab) 1 tab BID PO 06/30/17 21:00 07/30/17 20:59 07/01/17 08:43 1 TAB Ferrous Sulfate (Feosol Tab) 325 mg BID PO 06/30/17 21:00 07/30/17 20:59 07/01/17 08:45 325 MG Artificial Tears (Artificial Tears) 2 drops Q8 OPB 06/30/17 22:00 07/30/17 21:59 07/01/17 05:28 2 DROPS Meclizine HCl (Antivert Tab) 25 mg Q8H PRN PO 06/30/17 16:45 07/30/17 16:44 Pantoprazole Sodium (Protonix Tab) 40 mg HS PO 06/30/17 21:00 07/30/17 20:59 06/30/17 20:50 40 MG Polyethylene (Miralax Powder Packet) 17 gm QAM PO 07/01/17 09:00 07/31/17 08:59 07/01/17 08:43 17 GM Ranolazine (Ranexa ER Tab) 1,000 mg BID PO 06/30/17 21:00 07/30/17 20:59 07/01/17 08:46 1,000 MG Miscellaneous (Remove Lidoderm Patch) 1 ea QAM N/A 07/01/17 09:00 07/31/17 08:59 07/01/17 08:46 1 EA Metoprolol Tartrate (Lopressor Tab) 25 mg BID PO 06/30/17 21:00 07/30/17 20:59 07/01/17 08:45 25 MG Apixaban (Eliquis Tab) 5 mg BID PO 06/30/17 21:00 07/30/17 20:59 07/01/17 08:44 5 MG Miscellaneous (Iv Fluids Completed) 1 ea PRN PRN N/A 06/30/17 16:00 06/30/18 15:59 Insulin Aspart (novoLOG ASPART) SLIDING SCALE If C... ACHS SC 06/30/17 21:00 07/30/17 20:59 Glucose (Glucose 40% Gel) 15-30 GRAMS 15 GRAMS... UD PRN PO 06/30/17 16:15 07/30/17 16:14 Glucose (Glucose Chew Tab) 4-8 Tablets 4 Tabl... UD PRN PO 06/30/17 16:15 07/30/17 16:14 Dextrose (Dextrose 50% 50ML Syringe) 25-50ML OF 50% DW IV FOR... UD PRN IV 06/30/17 16:15 07/30/17 16:14 Glucagon (Glucagon Inj) 1 mg UD PRN SQ 06/30/17 16:15 07/30/17 16:14 Diclofenac Sodium (Voltaren 1% Top Gel) 1 appln QID EXT 06/30/17 21:00 07/30/17 20:59 07/01/17 08:41 1 APPLN (Ngoc Dong PA-C) Objective Vital Signs Date Time Temp Pulse Resp B/P (MAP) Pulse Ox O2 Delivery O2 Flow Rate FiO2 07/01/17 12:00 Room Air 07/01/17 11:12 36.8 92 18 119/75 (90) 94 Room Air 07/01/17 08:00 Room Air 07/01/17 07:52 37.4 95 18 120/83 (95) 96 Room Air 07/01/17 04:00 Room Air 07/01/17 03:44 36.7 68 17 142/84 (103) 96 Room Air 07/01/17 00:00 Room Air 06/30/17 23:25 36.5 88 16 141/81 (101) 95 Room Air Nasal Cannula 06/30/17 20:00 95 Room Air 06/30/17 19:55 37.0 81 20 139/91 (107) 96 Room Air 06/30/17 19:28 36.6 88 18 127/80 (96) 91 Nasal Cannula 3.0 06/30/17 16:45 95 Room Air 06/30/17 16:45 36.5 100 18 141/90 (107) 97 Room Air 06/30/17 16:24 100 20 143/94 95 06/30/17 15:19 103 19 118/81 96 Room Air 06/30/17 14:33 109 128/84 06/30/17 13:47 Room Air 06/30/17 12:48 102 23 97 (Ngoc Dong PA-C) Physical Exam General Appearance: WD/WN, no apparent distress Eyes: sclerae normal, + pertinent finding (R eye blind) ENT: hearing grossly normal Neck: supple, no JVD, trachea midline Respiratory/Chest: lungs clear, normal breath sounds, no respiratory distress, no accessory muscle use Cardiovascular: no gallop, no murmur, + irregularly irregular Abdomen: normal bowel sounds, non tender, soft Extremities: no pedal edema, no calf tenderness Neurologic/Psychiatric: alert, oriented x 3 Skin: normal color, warm/dry (Ngoc Dong PA-C) Laboratory Results Last 24 Hours Test 06/30/17 13:00 06/30/17 14:03 06/30/17 16:58 06/30/17 19:55 Urine Color YELLOW Urine Appearance CLEAR Urine pH 7.5 Urine Specific [place] 1.017 Urine Protein NEG Urine Glucose (UA) NEG Urine Ketones NEG Urine Occult Blood TRACE Urine Nitrite NEG Urine Bilirubin NEG Urine Urobilinogen NEG Urine Leukocyte Esterase SMALL Urine WBC (Auto) 5-10 /hpf Urine RBC (Auto) 0-4 /hpf Urine Hyaline Casts (Auto) 1-5 /lpf Urine Epithelial Cells (Auto) 20-30 /lpf Urine Bacteria (Auto) NEG Troponin I 0.076 ng/ml Bedside Glucose 107 mg/dl 108 mg/dl Test 06/30/17 20:14 06/30/17 20:47 07/01/17 06:39 Troponin I 0.077 ng/ml Bedside Glucose 107 mg/dl 117 mg/dl (Ngoc Dong, PA-C) Assessment and Plan Ms. Hou is an 82 y/o resident of [facility] who was referred by Dr. Hammonds's office for A Fib RVR. Paroxysmal Atrial Fibrillation with RVR: Rate Controlled - Intermittent rates up to 120s mostly with ambulation - Metoprolol 37.5 mg BID - Eliquis 5 mg BID Severe CAD: - ASA 81 mg daily and Aggrenox 1 cap BID - Imdur 90 mg daily and Simvastatin 40 mg daily Pansensitive Enterococcus faecalis: - Ciprofloxacin 250 mg BID - 7 day course complete on 07/04 T2DM: - Lantus 15 units SC daily and SSI CKD Stage III-IV: STABLE DVT Prophylaxis: Eliquis Code Status: DO NOT RESUSCITATE Disposition: Pending good rate control with slightly increased Metoprolol - D/C back to [facility] tomorrow Continued [facility] stay due to: multiple IV medications needed Discharge planning: group home facility ([facility]) (Ngoc Dong, PA-C) i personally examined pt and verified all [place] points w Olu Dong PAC feeling better breathing better vitals noted nad breathing unlabored no pallor or icterus rates improving afib/RVR - improving - continue titration of metoprolol elevated troponin - demand ischemia improving - with better rate control anticipate return to [facility] hopefully by tomorrow otherwise as above (Sukh Garcia DNorma)
[2017-07-01 15:56] VITALS: BP 108/71; PULSE 95; TEMP 36.7; O2SAT 95
[2017-07-01 19:36] VITALS: BP 122/81; PULSE 95; TEMP 36.4; O2SAT 96
[2017-07-01] MEDS: SIMVASTATIN 40 MG TAB PO SCH (20:30)
[2017-07-01] MEDS: PANTOprazole SOD 40 MG TAB PO SCH (20:31)
[2017-07-01] MEDS: LORATADINE 10 MG TAB PO PRN (20:31)
[2017-07-01] MEDS: LIDODERM (LIDOCAINE) PATCH 5% TD SCH (20:32)
[2017-07-01] MEDS: INSULIN GLARGINE SOLOSTAR 100 UNITS/ML 3 ML PEN SC SCH (20:36)
[2017-07-02 00:12] VITALS: BP 122/84; PULSE 74; TEMP 36.7; O2SAT 95
[2017-07-02 04:44] VITALS: BP 119/75; PULSE 86; TEMP 36.9; O2SAT 98
[2017-07-02] MEDS: ARTIFICIAL TEARS OP SOLN OPB SCH ×4 (06:07→14:00)
[2017-07-02 06:36] LABS: HEMATOCRIT 38.8 % (37-47); MEAN CELL VOLUME 90.2 fL (80-100); MEAN CORPUSCULAR HEMOGLOBIN 29.3 pg (25-34); MEAN CORPUSCULAR HGB CONC 32.5 g/dl (32-36); MEAN PLATELET VOLUME 9.4 fL (7.4-10.4); PLATELET COUNT 259 K/uL (130-400); WHITE BLOOD COUNT 7.13 K/uL (4.8-10.8)
[2017-07-02 07:10] LABS: CREATININE 1.3 mg/dl (0.60-1.20); POTASSIUM 3.8 mmol/L (3.5-5.1)
[2017-07-02 07:45] VITALS: BP 128/79; PULSE 94; TEMP 36.4; O2SAT 97
[2017-07-02] MEDS: DICLOFENAC SOD 1% GEL 100 GM TUBE EXT SCH ×2 (08:46→13:00)
[2017-07-02] MEDS: DULOXETINE HCL 20 MG CAP PO SCH (08:47)
[2017-07-02] MEDS: DOCUSATE SODIUM 100 MG CAP PO SCH (08:48)
[2017-07-02] MEDS: FERROUS SULFATE 325 MG TAB PO SCH (08:48)
[2017-07-02] MEDS: CALCIUM 600MG + VIT D 400 IU TAB PO SCH (08:48)
[2017-07-02] MEDS: ISOSORBIDE MONONITRATE 30 MG TABCR PO SCH (08:48)
[2017-07-02] MEDS: METOPROLOL TARTRATE 25 MG TAB PO SCH (08:49)
[2017-07-02] MEDS: DIPYRIDAMOLE/ASPIRIN CAP PO SCH (08:49)
[2017-07-02] MEDS: RANOLAZINE 500 MG ER TAB PO SCH (08:50)
[2017-07-02] MEDS: APIXABAN 2.5 MG TAB PO SCH (08:51)
[2017-07-02] MEDS: POLYETHYLENE (MIRALAX) 17 GM PACK PO SCH (08:51)
[2017-07-02] MEDS: CIPROFLOXACIN 250 MG TAB PO SCH (08:51)
[2017-07-02] MEDS: TOPIRAMATE 100 MG TAB PO SCH (08:52)
[2017-07-02] MEDS: ASPIRIN 81 MG ECTAB PO SCH (08:52)
[2017-07-02] MEDS: INSULIN ASPART 100 UNITS/ML 3 ML PEN SC SCH ×2 (08:57→12:22)
[2017-07-02 11:21] VITALS: BP 128/83; PULSE 99; TEMP 36.8; O2SAT 98
[2017-07-02] MEDS ORDERED: LPR25 PO (13:18)
[2017-07-02] MEDS ORDERED: APIX1TAB3 PO (13:18)
--- NOTE | 2017-07-02 13:20 | Discharge Instructions ---
Discharge Instructions Date of Service Jul 02, 2017. Admission Reason for Admission: Atrial Fibrillation With Rvr Discharge Discharge Diagnosis / Problem: new onset Afib with RVR Discharge Goals Goal(s): Decrease discomfort Activity Recommendations Activity Limitations: resume your previous activity . Current Hospital Diet Patient's current hospital diet: AHA Diet (Heart Healthy), Diabetes Type 2 Diet Discharge Diet Recommended Diet: AHA Diet (Heart Healthy), Low Sodium Diet (2gm Na), Diabetes Type 2 Diet Pending Studies Studies pending at discharge: no Laboratory Results Hemoglobin A1c Test 04/05/17 03:30 Range/Units Estimated Average Glucose 174 mg/dl Hemoglobin A1c 7.7 H 4.5-5.6 % Medical Emergencies . Who to Call and When: Medical Emergencies: If at any time you feel your situation is an emergency, please call 911 immediately. . Non-Emergent Contact Non-Emergency issues call your: Primary Care Provider, Memorandum Statement Clerk . . "Provider Documentation" section prepared by Татьяна Linton. . VTE Core Measure Inpt VTE Proph given/why not?: Other Anticoagulation, SCD's
[2017-07-02 13:48] VITALS: BP 128/83; PULSE 99; TEMP 36.8; O2SAT 98
--- NOTE | 2017-07-02 16:38 | Progress Note ---
Subjective Date of Service: Jul 02, 2017. Subjective Pt evaluation today including: conversation w/ patient, physical exam, chart review, lab review, conversation w/ group segment consultant Problem List Medical Problems: (1) Acute head injury Status: Acute (2) Altered mental status Status: Acute (3) Atrial fibrillation with rapid ventricular response Status: Acute (4) Back pain Status: Acute (5) Back pain Status: Acute (6) Blind right eye Status: Chronic (7) Bruising Status: Acute (8) CHF (congestive heart failure) Status: Acute (9) Compression fracture Status: Acute (10) Contusion of right shoulder Status: Acute (11) Depression Status: Chronic (12) Depression Status: Acute (13) Elevated serum creatinine Status: Acute (14) Fall Status: Acute (15) Fall Status: Acute (16) Fecal retention Status: Acute (17) Fracture of fifth metacarpal bone of right hand Status: Acute (18) Fracture of thoracic transverse process Status: Acute (19) Generalized weakness Status: Acute (20) Headache Status: Acute (21) Hypokalemia Status: Acute (22) Intractable back pain Status: Acute (23) Intractable back pain Status: Acute (24) Intractable back pain Status: Acute (25) Left sided chest pain Status: Acute (26) Lumbar compression fracture Status: Acute (27) Lumbar transverse process fracture Status: Acute (28) Mild dehydration Status: Acute (29) Multiple fractures of thoracic spine Status: Acute (30) Multiple fractures of thoracic spine Status: Acute (31) Multiple fractures of thoracic spine Status: Acute (32) Multiple rib fractures Status: Acute (33) Peripheral edema Status: Acute (34) Pleural effusion Status: Acute (35) Pneumonia Status: Acute (36) Precordial chest pain Status: Acute (37) Right facial numbness Status: Acute (38) Right-sided chest wall pain Status: Acute (39) Suicide attempt by acetaminophen overdose Status: Acute (40) Tylenol overdose Status: Acute (41) Unstable angina Status: Acute (42) Urinary retention Status: Acute (43) Urinary retention Status: Acute Review of Systems Constitutional: No see HPI, No fever, No chills, No sweats, No weight loss, No weakness, No fatigue, No problem reported Eyes: No see HPI, No worsening of vision, No eye pain, No redness, No discharge , No diplopia, No problem reported ENT: No see HPI, No hearing loss, No unusual epistaxis, No nasal symptoms, No sore throat, No tinnitus, No dental problems, No trouble swallowing, No problem reported Respiratory: No see HPI, No cough, No sputum, No wheezing, No shortness of breath, No dyspnea on exertion, No dyspnea at rest, No hemoptysis, No problem reported Cardiac: No see HPI, No chest pain, No orthopnea, No PND, No edema, No claudication, No palpitations, No problem reported Abdomen: No see HPI, No pain, No nausea, No vomiting, No diarrhea, No constipation, No GI bleeding, No problem reported Musculoskeletal: No see HPI, No joint pain, No muscle pain, No swelling, No calf pain, No problem reported Female : No see HPI, No dysuria, No urinary frequency, No hematuria, No incontinence, No abnormal vaginal bleeding, No vaginal discharge, No problem reported Psychiatric: No see HPI, No depression symptoms, No anhedonism, No anxiety, No insomnia, No substance abuse, No problem reported Heme: No see HPI, No abnormal bleeding/bruising, No clotting problems, No swollen lymph nodes, No night sweats, No problem reported Endo: No see HPI, No fatigue, No excessive thirst, No excessive urination, No problem reported Skin: No see HPI, No rash, No itch, No new/changing skin lesions, No color change, No bleeding, No problem reported Objective Vital Signs Date Time Temp Pulse Resp B/P (MAP) Pulse Ox O2 Delivery O2 Flow Rate FiO2 07/02/17 13:48 36.8 99 20 98 Room Air 07/02/17 12:00 Room Air 07/02/17 11:21 36.8 99 20 128/83 (98) 98 Room Air 07/02/17 08:00 Room Air 07/02/17 07:45 36.4 94 16 128/79 (95) 97 Room Air 07/02/17 04:44 36.9 86 20 119/75 (90) 98 Room Air 07/02/17 04:00 Room Air 07/02/17 00:12 36.7 74 19 122/84 (97) 95 Room Air 07/02/17 00:00 Room Air 07/01/17 20:00 Room Air 07/01/17 19:36 36.4 95 20 122/81 (95) 96 Room Air Physical Exam General Appearance: WD/WN, no apparent distress Eyes: normal inspection, EOMI ENT: normal ENT inspection, hearing grossly normal Neck: supple Respiratory/Chest: chest non-tender, lungs clear, normal breath sounds, no respiratory distress, no accessory muscle use Cardiovascular: no edema, no gallop, + irregularly irregular Abdomen: normal bowel sounds, non tender, soft, no organomegaly Extremities: normal range of motion, non-tender, normal inspection, no pedal edema Neurologic/Psychiatric: heel painter II-XII nml as tested, no motor/sensory deficits, alert, normal mood/affect, oriented x 3 Skin: normal color, warm/dry, no rash Laboratory Results Last 24 Hours Test 07/01/17 16:45 07/01/17 20:50 07/02/17 06:06 07/02/17 06:30 Bedside Glucose 128 mg/dl 165 mg/dl 109 mg/dl White Blood Count 7.13 K/uL Red Blood Count 4.30 M/uL Hemoglobin 12.6 g/dL Hematocrit 38.8 % Mean Corpuscular Volume 90.2 fL Mean Corpuscular Hemoglobin 29.3 pg Mean Corpuscular Hemoglobin Concent 32.5 g/dl RDW Standard Deviation 59.3 fL RDW Coefficient of Variation 17.8 % Platelet Count 259 K/uL Mean Platelet Volume 9.4 fL Sodium Level 141 mmol/L Potassium Level 3.8 mmol/L Chloride Level 110 mmol/L Carbon Dioxide Level 25 mmol/L Anion Gap 6.0 mmol/L Blood Urea Nitrogen 18 mg/dl Creatinine 1.30 mg/dl Est Creatinine Clear Calc Drug Dose 34.2 ml/min Estimated GFR () 44.6 Estimated GFR (Non- 38.4 BUN/Creatinine Ratio 14.0 Random Glucose 118 mg/dl Calcium Level 10.0 mg/dl Test 07/02/17 10:54 Bedside Glucose 171 mg/dl Assessment and Plan Ms. Hou is an 82 y/o resident of [facility] who was referred by Dr. Hammonds's office for A Fib RVR. A. fib RVR Severe coronary artery disease UTI with sensitive Enterococcus faecalis Chronic kidney disease stage III Diabetes mellitus insulin-requiring Obesity Plan Patient was started on Eliquis Heart rate is fully controlled with metoprolol, dose was increased to 37.5 mg twice a day Patient was continued on her aspirin 81 mg due to her severe CAD, Aggrenox was stopped She was continued on her ciprofloxacin and insulin regimen Today patient is doing well and stable for discharge Continued [facility] stay due to: multiple IV medications needed Discharge planning: senior care facility ([facility])
--- NOTE | 2017-07-02 16:44 | Discharge Summary ---
Discharge Summary Date of Service Jul 02, 2017. Discharge Summary Admission Date: Jun 30, 2017 at 15:24 Discharge Date: Jul 02, 2017 Discharge Disposition: shelter facility Principal Diagnosis: atrial fibrillation with RVR Problems/Secondary Diagnoses: Blindness right eye Depression Chronic kidney disease stage III Diabetes mellitus insulin-requiring Obesity with BMI 34 Coronary artery disease Immunizations: Have You Had Influenza Vaccine: No History of Tetanus Vaccine?: utd History of Pneumococcal: Yes Pneumococcal Date: Sep 24, 2010 History of Hepatitis B Vaccine: No Medication Reconciliation New Medications: Apixaban (Eliquis) 5 Mg Tab 5 MG PO BID for 30 Days, #60 TAB Metoprolol Tartrate (Lopressor) 25 Mg Tab 37.5 MG PO BID for 30 Days, #90 TAB Continued Medications: Acetaminophen (Tylenol) 325 Mg Tab 650 MG PO Q6 PRN for Pain or Fever *NOT TO EXCEED 3 GM APAP / 24 HRS* Alendronate Sodium (Fosamax) 70 Mg Tab 70 MG PO WK thursday Aspirin (Ecotrin Low Strength) 81 Mg Tab 81 MG PO QAM for 30 Days, #30 TAB 3 Refills Bisacodyl (Dulcolax) 10 Mg Sup 1 SUPP MS UD PRN for Constipation, SUP Calcium Carbonate-Vitamin D (Oscal 500/200 D-3) 1 Tab Tab 1 TAB PO BID Ciprofloxacin Tab (Cipro) 250 Mg Tab 250 MG PO BID, TAB Diclofenac Sodium (Topical) (Voltaren 1% Top Gel) 1 % Gel 4 GM TP QID TO BILATERAL KNEE FOUR TIMES DAILY *MAX DOSE 32 GM TOTAL BODY. LOWER MAX 16 GM/JOINT/DAY. UPPER MAX 8 GM/JOINT/DAY* Dipyridamole/Aspirin (Aggrenox 25-200 mg) 1 Cap Cap 1 CAP PO BID, CAP Docusate Sodium (Colace) 100 Mg Cap 100 MG PO BID for 30 Days, #60 CAP Duloxetine HCl (Cymbalta) 20 Mg Cap 20 MG PO QAM for 30 Days, #30 CAP Ergocalciferol (Vitamin D 18620 Unit) 50,000 Unit Cap 42786 UNIT PO WK THURSDAY Ferrous Sulfate (Kp Ferrous Sulfate) 325 Mg Tab 325 MG PO BID for 30 Days, #60 TAB 3 Refills Hirtffoi-Ehvfvbpxipxc-Mbowidgw (Artificial Tears) 1 Donavan Donavan 2 DROP OPB Q8 Insulin Glargine (Lantus) 100 Unit/Ml Inj 15 UNITS SC HS *DO NOT MIX WITH OTHER INSULINS* Isosorbide Mononitrate Ext Rel (Imdur Ext Rel) 30 Mg Tabcr 90 MG PO QAM THREE 30 MG TABLETS Lidocaine (Lidocaine) 5 % Pad 1 PATCH TOP Q12 ON 12 HOURS/ OFF 12 HOURS *LEFT RIB (PAIN) Loratadine (Claritin) 10 Mg Tab 10 MG PO DAILY PRN for PRUITIS, TAB Magnesium Hydroxide (Milk of Magnesia) 30 Ml Susp 30 ML PO UD PRN for Constipation Meclizine Hcl (Meclizine Hcl) 25 Mg Chw 25 MG PO Q8 PRN for DIZZINESS CHEWABLE Meclizine Hcl (Meclizine Hcl) 25 Mg Chw 25 MG PO DAILY PRN for MOTION SICKNESS 1/2 HOUR PRIOR TO TRAVEL, NEEDED Omeprazole (Prilosec) 20 Mg Capcr 20 MG PO HS CAPSULE MAY BE OPENED AND SPRINKLED ON APPLESAUCE* Polyethylene Glycol 3350 (Miralax) 1 Pow Pow 17 GM PO QAM, #255 GM Prednisone (Prednisone) 5 Mg Tab 5 MG PO QAM, TAB Ranolazine (Ranexa) 1,000 Mg Tab 1000 MG PO BID for 90 Days, #18 TAB 3 Refills Simethicone (Gas-X) 80 Mg Chw 80 MG PO Q6 PRN for BLOATING Simvastatin (Zocor) 40 Mg Tab 40 MG PO HS, TAB Sodium Phosphates (Fleet Enema Six Pack) 1 Rakel Rakel 1 DOSE MS UD PRN for Constipation Topiramate (Topamax) 200 Mg Tab 200 MG PO BID, TAB Discontinued Medications: Albuterol Hfa (Ventolin Hfa) 200 Puffs/91741 Mcg Aers 2 PUFFS INH Q4 PRN for Shortness of Breath, #1 INHALER Referrals At Discharge Follow up Referrals: Pin Machine Operator Referral - Within 1-2 Weeks with Grzegorz Ponce M.D. Discharge Exam Review of Systems: Constitutional: No fever, No chills, No sweats, No weight loss, No weakness , No fatigue, No problem reported Eyes: No worsening of vision, No eye pain, No redness, No discharge, No diplopia, No problem reported ENT: No hearing loss, No unusual epistaxis, No nasal symptoms, No sore throat, No tinnitus, No dental problems, No trouble swallowing, No problem reported Respiratory: No cough, No sputum, No wheezing, No shortness of breath, No dyspnea on exertion, No dyspnea at rest, No hemoptysis, No problem reported Cardiovascular: No chest pain, No orthopnea, No PND, No edema, No claudication, No palpitations, No problem reported Abdomen: No pain, No nausea, No vomiting, No diarrhea, No constipation, No GI bleeding, No problem reported Musculoskeletal: No joint pain, No muscle pain, No swelling, No calf pain, No problem reported Genitourinary - Female: No dysuria, No urinary frequency, No urinary urgency , No urinary incontinence, No urinary retention, No hematuria, No dysmenorrhea, No menorrhagia, No metrorrhagia, No rash, No vaginal bleeding, No vaginal discharge, No vaginal itching, No vulvodynia, No , No problem reported Neurologic: No memory loss, No paralysis, No weakness, No numbness/tingling , No vertigo, No balance problems, No problem reported Psychiatric: No depression symptoms, No anhedonism, No anxiety, No insomnia , No substance abuse, No problem reported Endocrine: No fatigue, No excessive thirst, No excessive urination, No problem reported Hematologic / Lymphatic: No abnormal bleeding/bruising, No clotting problems , No swollen lymph nodes, No night sweats, No problem reported Integumentary: No rash, No itch, No new/changing skin lesions, No color change, No bleeding, No problem reported Physical Exam: General Appearance: WD/WN, no apparent distress Eyes: normal inspection, EOMI ENT: normal ENT inspection, hearing grossly normal Neck: supple Respiratory/Chest: chest non-tender, lungs clear, normal breath sounds, no respiratory distress, no accessory muscle use Cardiovascular: no edema, no gallop, + irregularly irregular Abdomen / GI: normal bowel sounds, non tender, soft, no organomegaly, no pulsatile mass Extremities: normal inspection, no calf tenderness, normal capillary refill , no pedal edema Neurologic/Psychiatric: guest service agent II-XII nml as tested, no motor/sensory deficits , alert, normal mood/affect, normal reflexes, oriented x 3 Skin: normal color, warm/dry, no rash Hospital Course Ms. Hou is an 82 y/o resident of [facility] who was referred by Dr. Hammonds's office for A Fib RVR. Patient was admitted to the hospital for further evaluation and management Started on metoprolol 25 mg twice a day then dose was increased to 37.5 mg twice a day and appears to be working well Patient was started on Eliquis for anticoagulation. Also due to her history of severe coronary artery disease she was continued and aspirin 81 mg daily She was in ciprofloxacin for UTI and sensitivity into coccus faecalis, she was instructed to finish her antibiotic course There was a minimal bump in her creatinine from 1.1-1.3 upon discharge, she was instructed to repeat BMP within 1 week of discharge Patient is within acceptable medical stability for discharge and will follow up with sales account specialist in 1 week Total Time Spent: Greater than 30 minutes This includes examination of the patient, discharge planning, medication reconciliation, and communication with other providers. Discharge Instructions Please refer to the electronic Patient Visit Report (Discharge Instructions) for additional information.
== END 2017-07-02 15:00 ==
LOC: C.EDB 11:20 → C.2T 15:24 → ENRESERV 15:47
PROVIDERS: ADMIT Internal Medicine; ATTEND Internal Medicine
DX: I48.91 Unspecified atrial fibrillation (principal); Z79.01 Long term (current) use of anticoagulants; I25.10 Atherosclerotic heart disease of native coronary artery without angina pectoris; I12.9 Hypertensive chronic kidney disease with stage 1 through stage 4 chronic kidney disease, or unspecified chronic kidney disease; E11.22 Type 2 diabetes mellitus with diabetic chronic kidney disease; N18.3 Chronic kidney disease, stage 3 (moderate); E11.51 Type 2 diabetes mellitus with diabetic peripheral angiopathy without gangrene; E78.5 Hyperlipidemia, unspecified; E21.3 Hyperparathyroidism, unspecified; J45.909 Unspecified asthma, uncomplicated; E55.9 Vitamin D deficiency, unspecified; K21.9 Gastro-esophageal reflux disease without esophagitis; E27.40 Unspecified adrenocortical insufficiency; F01.50 Vascular dementia, unspecified severity, without behavioral disturbance, psychotic disturbance, mood disturbance, and anxiety; H54.61 Unqualified visual loss, right eye, normal vision left eye; F32.9 Major depressive disorder, single episode, unspecified; Z86.73 Personal history of transient ischemic attack (TIA), and cerebral infarction without residual deficits; M19.90 Unspecified osteoarthritis, unspecified site; M35.3 Polymyalgia rheumatica; M06.9 Rheumatoid arthritis, unspecified; E66.9 Obesity, unspecified; Z68.34 Body mass index [BMI] 34.0-34.9, adult; Z95.1 Presence of aortocoronary bypass graft; Z79.4 Long term (current) use of insulin; Z79.82 Long term (current) use of aspirin; Z79.899 Other long term (current) drug therapy

== ENCOUNTER → 2017-07-06 | Outpatient (CLI) | payer OTHER ==
[~2017-07-06] MED LIST changes: -AGG PO; +ALEN70TA2 PO; -ALEN70TA4 PO; +APIX1TAB3 PO; -ASPEC81 PO; +ASPI-428 PO; +BISA10SU3 PR; -BISA10SU7 PR; +CIPR1TAB11 PO; +CLR10 PO; -DFL100 PO; +DICL1GEL12 TP; +DULO-24 PO; +ERGO500037 PO; -ESCI1TAB10 PO; +FERR1TAB13 PO; -FRRS300 PO; +INSDGI SC; -INSDGIPEN SC; -ISOS-11 PO; +ISOS30TA35 PO; -KFL500 PO; +LIDO1PAD2 TOP; +LPR25 PO; +MECL1CHW4 PO; -MOML PO; +MOMLX PO; -MYL80 PO; -NF656 PO; -PANT40TA PO; +PRLSR20 PO; +SIME80CH PO; +SODI1ENE PR; -SODIENE PR; -VNTHFA/IN INH
--- NOTE | 2017-07-06 13:49 | DIAGNOSTIC IMAGING REPORT ---
CHEST 2 VIEWS ROUTINE CLINICAL HISTORY: ABNORMAL CXR dyspnea COMPARISON STUDY: 06/30/2017 FINDINGS: Mild stable cardiomegaly. Mild stable bibasilar atelectasis. Density right midlung has Resolved. This Presumably was inflammatory. Chronic thickening of the major fissure based on the lateral projection. Considerable degenerative changes thoracolumbar spine. IMPRESSION: Lungs are now considered clear. Chronic changes as noted. The above report was generated using voice recognition software. It may contain grammatical, syntax or spelling errors. Electronically signed by: Ashwin Handy M.D. 07/06/2017 1:48 PM Dictated Date/Time: 07/06/2017 1:46 PM
== END | disposition home or self-care (01) ==
LOC: C.RAD 13:19
PROVIDERS: ATTEND Physician Assistant Medical
DX: R93.8 Abnormal findings on diagnostic imaging of other specified body structures (principal)

== ENCOUNTER → 2017-07-08 | Outpatient (CLI) | payer OTHER ==
[2017-07-08 09:27] LABS: BLOOD UREA NITROGEN 17 mg/dl (7-18); BUN/CREATININE RATIO 13.7 (10-20); CALCIUM 9.4 mg/dl (8.5-10.1); CARBON DIOXIDE 25 mmol/L (21-32); CHLORIDE 110 mmol/L (98-107); CREATININE 1.23 mg/dl (0.60-1.20); GLUCOSE 116 mg/dl (70-99); POTASSIUM 3.8 mmol/L (3.5-5.1); SODIUM 143 mmol/L (136-145)
== END ==
LOC: C.LABCC 08:36
PROVIDERS: ATTEND Internal Medicine
DX: N17.9 Acute kidney failure, unspecified (principal)

== ENCOUNTER → 2017-09-03 | Outpatient (CLI) | payer OTHER ==
[~2017-09-03] MED LIST changes: -APIX1TAB3 PO
[2017-09-03 08:21] LABS: BASO % 0.9 %; BASO ABS # 0.07 K/uL (0-0.2); COMPLETE YES; EOS % 8.8 %; HEMATOCRIT 40.1 % (37-47); IG% 0.5 %; LYMPH % 37.5 %; LYMPH ABS # 2.86 K/uL (1.2-3.4); MEAN CORPUSCULAR HEMOGLOBIN 29.7 pg (25-34); MEAN CORPUSCULAR HGB CONC 31.9 g/dl (32-36); MEAN PLATELET VOLUME 9.8 fL (7.4-10.4); MONO % 10.8 %; NEUT % 41.5 %; PLATELET COUNT 237 K/uL (130-400); RED BLOOD COUNT 4.31 M/uL (4.2-5.4); WHITE BLOOD COUNT 7.62 K/uL (4.8-10.8)
[2017-09-03 08:29] LABS: ALT/SGPT 11 U/L (12-78); BLOOD UREA NITROGEN 16 mg/dl (7-18); BUN/CREATININE RATIO 13.4 (10-20); CALCIUM 9.7 mg/dl (8.5-10.1); CARBON DIOXIDE 25 mmol/L (21-32); CHLORIDE 105 mmol/L (98-107); CREATININE 1.22 mg/dl (0.60-1.20); GLUCOSE 90 mg/dl (70-99); POTASSIUM 3.7 mmol/L (3.5-5.1); SODIUM 138 mmol/L (136-145)
[2017-09-03 08:31] LABS: ALB/GLOB RATIO 0.8 (0.9-2); ALKALINE PHOSPHATASE 38 U/L (45-117); AST/SGOT 9 U/L (15-37)
[2017-09-03 09:15] LABS: ESTIMATED AVERAGE GLUCOSE 128 mg/dl; HA1C FLAG Normal (Normal)
--- NOTE | 2017-09-11 12:23 | CODING QUERY MEDICAL NECESSITY ---
SUPPORTING DIAGNOSIS NEEDED Dr. Viveros, A supporting diagnosis is required for the test/procedure performed on this patient in order for us to be reimbursed by the patient's insurance. Please provide a supporting diagnosis for the following test/procedure listed below next to the test name along with your signature. *If there is no additional diagnosis for this patient that would support the following test/procedure please document that below next to the test/procedure. Test(s)/Procedure(s) that require a supporting diagnosis: * [id number] GLYCATED HEMOGLOBIN DIAGNOSIS: DATE OF SERVICE: 09/03/17 Provider Signature: Date: Thank you Avery Escobar [employer] Information Management Once completed, please kindly fax back to [phone] For questions please call [phone]
== END | disposition home or self-care (01) ==
LOC: C.LABCC 08:01
PROVIDERS: ATTEND Internal Medicine
DX: R10.31 Right lower quadrant pain (principal); E11.22 Type 2 diabetes mellitus with diabetic chronic kidney disease

== ENCOUNTER → 2017-09-08 | Outpatient (CLI) | payer OTHER ==
[2017-09-08 10:38] LABS: URINE APPEARANCE CLEAR (CLEAR); URINE BILIRUBIN NEG (NEG); URINE COLOR YELLOW; URINE EPITHELIAL CELL AUTO >30 /lpf (0-5); URINE NITRITE NEG (NEG); URINE PH 7.5 (4.5-7.5); URINE SPECIFIC GRAVITY 1.016 (1.000-1.030); UROBILINOGEN NEG (NEG)
[2017-09-08 10:40] LABS: MANUAL MICROSCOPIC REQUIRED? NO; REVIEW REQ? YES
== END ==
LOC: C.LABCC 09:13
PROVIDERS: ATTEND Internal Medicine
DX: R10.31 Right lower quadrant pain (principal)

== ENCOUNTER → 2017-09-11 | Outpatient (CLI) | payer OTHER | LOC: C.LABCC 08:38 | PROVIDERS: ATTEND Internal Medicine | DX: R10.31 Right lower quadrant pain (principal) ==

== ENCOUNTER → 2017-09-28 | Outpatient (CLI) | payer OTHER ==
[2017-09-28 14:07] LABS: INFLUENZA B ANTIGEN Neg for Influ B (NEG)
== END ==
LOC: C.LABCC 13:38
PROVIDERS: ATTEND Internal Medicine
DX: R50.9 Fever, unspecified (principal); R05 Cough

== ENCOUNTER → 2017-10-08 | Outpatient (CLI) | payer OTHER ==
[2017-10-08 09:37] LABS: HEMATOCRIT 33.4 % (37-47); MEAN CELL VOLUME 90.5 fL (80-100); MEAN CORPUSCULAR HEMOGLOBIN 29.8 pg (25-34); MEAN CORPUSCULAR HGB CONC 32.9 g/dl (32-36); MEAN PLATELET VOLUME 9.4 fL (7.4-10.4); PLATELET COUNT 296 K/uL (130-400); RED CELL DISTRIBUTION WIDTH CV 15.7 % (11.5-14.5); WHITE BLOOD COUNT 8.29 K/uL (4.8-10.8)
[2017-10-08 09:56] LABS: ALBUMIN 2.5 gm/dl (3.4-5.0); ALT/SGPT 18 U/L (12-78); BLOOD UREA NITROGEN 18 mg/dl (7-18); CALCIUM 10.1 mg/dl (8.5-10.1); CARBON DIOXIDE 24 mmol/L (21-32); CREATININE 1.15 mg/dl (0.60-1.20); GLUCOSE 107 mg/dl (70-99); POTASSIUM 3.3 mmol/L (3.5-5.1); SODIUM 141 mmol/L (136-145)
[2017-10-08 10:06] LABS: ALKALINE PHOSPHATASE 62 U/L (45-117); AST/SGOT 10 U/L (15-37); TOTAL PROTEIN 6.6 gm/dl (6.4-8.2)
== END | disposition home or self-care (01) ==
LOC: C.LABCC 08:53
PROVIDERS: ATTEND Internal Medicine
DX: R41.82 Altered mental status, unspecified (principal)

== ENCOUNTER → 2017-10-16 | Outpatient (CLI) | payer OTHER ==
[2017-10-16 08:47] LABS: HEMATOCRIT 37.4 % (37-47); HEMOGLOBIN 12.2 g/dL (12.0-16.0); MEAN CELL VOLUME 92.8 fL (80-100); MEAN CORPUSCULAR HEMOGLOBIN 30.3 pg (25-34); MEAN CORPUSCULAR HGB CONC 32.6 g/dl (32-36); MEAN PLATELET VOLUME 9.4 fL (7.4-10.4); PLATELET COUNT 311 K/uL (130-400); RED CELL DISTRIBUTION WIDTH CV 15.9 % (11.5-14.5); RED CELL DISTRIBUTION WIDTH SD 53.8 fL (36.4-46.3); WHITE BLOOD COUNT 7.23 K/uL (4.8-10.8)
[2017-10-16 08:56] LABS: BLOOD UREA NITROGEN 16 mg/dl (7-18); CALCIUM 9.8 mg/dl (8.5-10.1); CARBON DIOXIDE 25 mmol/L (21-32); CREATININE 1.24 mg/dl (0.60-1.20); GLUCOSE 111 mg/dl (70-99); POTASSIUM 3.7 mmol/L (3.5-5.1); SODIUM 137 mmol/L (136-145)
== END ==
LOC: C.LABCC 08:20
PROVIDERS: ATTEND Internal Medicine
DX: D64.9 Anemia, unspecified (principal); E87.1 Hypo-osmolality and hyponatremia

== ENCOUNTER → 2017-10-26 | Outpatient (CLI) | payer OTHER ==
[2017-10-26 09:31] LABS: BLOOD UREA NITROGEN 14 mg/dl (7-18); CALCIUM 9.7 mg/dl (8.5-10.1); CARBON DIOXIDE 23 mmol/L (21-32); GLUCOSE 115 mg/dl (70-99); POTASSIUM 3.4 mmol/L (3.5-5.1); SODIUM 143 mmol/L (136-145)
== END ==
LOC: C.LABCC 08:57
PROVIDERS: ATTEND Internal Medicine
DX: N28.9 Disorder of kidney and ureter, unspecified (principal)

== ENCOUNTER → 2017-10-30 | Outpatient (CLI) | payer OTHER ==
--- NOTE | 2017-10-30 13:01 | DIAGNOSTIC IMAGING REPORT ---
HEAD WITHOUT CONTRAST (CT) CLINICAL HISTORY: 82 years-old Female with ALTERED MENTAL STATUS. Acutely altered mental status TECHNIQUE: Multiple axial CT images of the head were obtained without contrast. A dose lowering technique was utilized adhering to the principles of ALARA. CT DOSE: 614.27 mGy.cm COMPARISON: CT head 04/15/2017. FINDINGS: No acute intracranial hemorrhage, midline shift, intracranial mass, hydrocephalus, territorial ischemia or abnormal extra-axial collection. Mild atrophy with ex vacuo ventriculomegaly. Ill-defined areas of low-attenuation within the periventricular white matter are again seen suggesting mild chronic microvascular ischemic changes. Cerebral vascular calcifications are seen at the level of the skull base. The calvarium is intact. Trace right mastoid effusion. The left mastoid air cells are generally clear. Paranasal sinuses are also generally clear. Soft tissues and orbits are unremarkable. IMPRESSION: No acute intracranial abnormality. The above report was generated using voice recognition software. It may contain grammatical, syntax or spelling errors. Electronically signed by: Denis Law M.D. 10/30/2017 1:00 PM Dictated Date/Time: 10/30/2017 12:57 PM
== END ==
LOC: C.CTS 12:38
PROVIDERS: ATTEND Physician Assistant Medical
DX: R41.82 Altered mental status, unspecified (principal); L97.909 Non-pressure chronic ulcer of unspecified part of unspecified lower leg with unspecified severity

== ENCOUNTER → 2017-11-30 | Outpatient (CLI) | payer OTHER | LOC: C.LABCC 08:18 | PROVIDERS: ATTEND Internal Medicine | DX: E78.5 Hyperlipidemia, unspecified (principal) ==

== ENCOUNTER → 2017-12-02 | Outpatient (CLI) | payer OTHER ==
[2017-12-02 08:57] LABS: ALBUMIN 2.7 gm/dl (3.4-5.0); ALT/SGPT 11 U/L (12-78); AST/SGOT 10 U/L (15-37); BLOOD UREA NITROGEN 16 mg/dl (7-18); CALCIUM 9.9 mg/dl (8.5-10.1); CARBON DIOXIDE 24 mmol/L (21-32); CREATININE 1.09 mg/dl (0.60-1.20); GLUCOSE 82 mg/dl (70-99); POTASSIUM 3.2 mmol/L (3.5-5.1); SODIUM 141 mmol/L (136-145)
[2017-12-02 09:07] LABS: ALKALINE PHOSPHATASE 39 U/L (45-117); TOTAL PROTEIN 6.2 gm/dl (6.4-8.2)
== END ==
LOC: C.LABCC 08:31
PROVIDERS: ATTEND Internal Medicine
DX: I48.91 Unspecified atrial fibrillation (principal); E55.9 Vitamin D deficiency, unspecified; M81.0 Age-related osteoporosis without current pathological fracture; I25.10 Atherosclerotic heart disease of native coronary artery without angina pectoris; M06.9 Rheumatoid arthritis, unspecified

== ENCOUNTER → 2017-12-10 | Outpatient (CLI) | payer OTHER ==
[2017-12-10 08:39] LABS: BLOOD UREA NITROGEN 21 mg/dl (7-18); CALCIUM 9.7 mg/dl (8.5-10.1); CARBON DIOXIDE 20 mmol/L (21-32); CREATININE 1.27 mg/dl (0.60-1.20); GLUCOSE 97 mg/dl (70-99); POTASSIUM 3.2 mmol/L (3.5-5.1); SODIUM 139 mmol/L (136-145)
== END ==
LOC: C.LABCC 08:12
PROVIDERS: ATTEND Internal Medicine
DX: E87.6 Hypokalemia (principal)

== ENCOUNTER → 2017-12-16 | Outpatient (CLI) | payer OTHER ==
[2017-12-16 10:08] LABS: BLOOD UREA NITROGEN 20 mg/dl (7-18); CARBON DIOXIDE 23 mmol/L (21-32); CREATININE 1.17 mg/dl (0.60-1.20); GLUCOSE 85 mg/dl (70-99); POTASSIUM 3.8 mmol/L (3.5-5.1); SODIUM 138 mmol/L (136-145)
== END ==
LOC: C.LABCC 09:15
PROVIDERS: ATTEND Internal Medicine
DX: E87.6 Hypokalemia (principal)

== ENCOUNTER → 2018-01-08 | Outpatient (CLI) | payer OTHER | LOC: C.LABCC 08:14 | PROVIDERS: ATTEND Internal Medicine | DX: R50.9 Fever, unspecified (principal) ==

== ENCOUNTER → 2018-01-08 | Outpatient (CLI) | payer OTHER ==
[2018-01-08 09:57] LABS: BASO % 0.5 %; BASO ABS # 0.05 K/uL (0-0.2); EOS % 3.5 %; EOS ABS # 0.32 K/uL (0-0.5); HEMOGLOBIN 12.7 g/dL (12.0-16.0); IG# 0.07 K/uL (0.00-0.02); LYMPH % 31.2 %; LYMPH ABS # 2.86 K/uL (1.2-3.4); MEAN CORPUSCULAR HEMOGLOBIN 30.2 pg (25-34); MEAN CORPUSCULAR HGB CONC 31.8 g/dl (32-36); MEAN PLATELET VOLUME 9.5 fL (7.4-10.4); MONO % 8.6 %; MONO ABS # 0.79 K/uL (0.11-0.59); NEUT % 55.4 %; NEUT ABS # 5.07 K/uL (1.4-6.5); PLATELET COUNT 303 K/uL (130-400); RED CELL DISTRIBUTION WIDTH SD 55.6 fL (36.4-46.3); WHITE BLOOD COUNT 9.16 K/uL (4.8-10.8)
[2018-01-08 10:09] LABS: ALBUMIN 2.6 gm/dl (3.4-5.0); AST/SGOT 28 U/L (15-37); BLOOD UREA NITROGEN 30 mg/dl (7-18); CALCIUM 10.5 mg/dl (8.5-10.1); CARBON DIOXIDE 24 mmol/L (21-32); CREATININE 1.38 mg/dl (0.60-1.20); GLUCOSE 93 mg/dl (70-99); POTASSIUM 3.9 mmol/L (3.5-5.1); SODIUM 141 mmol/L (136-145)
[2018-01-08 10:11] LABS: ALKALINE PHOSPHATASE 63 U/L (45-117); ALT/SGPT 25 U/L (12-78); TOTAL PROTEIN 7.5 gm/dl (6.4-8.2)
== END ==
LOC: C.LABCC 08:37
PROVIDERS: ATTEND Internal Medicine
DX: R50.9 Fever, unspecified (principal)